=== PATIENT | male | born 1945 | race Caucasian/White ===

== ENCOUNTER 2019-05-25 10:25 | Emergency (ER) | payer MEDICARE, OTHER ==
[~2019-05-25] VITALS: Ht 167.6 cm; Wt 64.4 kg
[~2019-05-25 10:25] MED LIST: AMLODIPINE BESYL5 MG PO; ASPIRIN EC325 MG PO; ATORVASTATIN CA40 MG PO; BACLOFEN20 MG PO; CHLORTHALIDONE25 MG PO; CITALOPRAM HBR40 MG PO; COUMADIN5 MG PO; COZAAR100 MG PO; ENOXAPARIN100 MG/1 M SUB-Q; FINASTERIDE5 MG PO; FLOMAX0.4 MG PO; FOLIC ACID0.4 MG PO; GABAPENTIN300 MG PO; IBUPROFEN600 MG PO; LOSARTAN POTASS50 MG PO; LOTEMAX5 ML OPTH; MIRAPEX0.25 MG PO; MYCOPHENOLATE500 MG PO; OMEPRAZOLE20 MG PO; OXYCODON-ACETA1 EAC2 PO; OXYCODONE HCL5 MG PO; POTASSIUM CHLO10 ME1 PO; RESTASIS1 DROP OD; SIMVASTATIN40 MG PO; TRAZODONE HCL50 MG PO; TYLENOL325 MG PO; VITAMIN B122500 MCG PO; VITAMIN D35000 UNIT PO; WARFARIN SODIUM5 MG PO
== END 2019-05-25 13:25 | disposition home or self-care (01) ==
LOC: ED 10:25
DX: K40.90 Unilateral inguinal hernia, without obstruction or gangrene, not specified as recurrent (principal); Z86.73 Personal history of transient ischemic attack (TIA), and cerebral infarction without residual deficits; Z87.891 Personal history of nicotine dependence; Z79.01 Long term (current) use of anticoagulants; Z79.899 Other long term (current) drug therapy
CPT/HCPCS: 74177; 80053; 81001; 85025; 99284-25; Q9967

== ENCOUNTER 2020-03-01 13:00 | Emergency (ER) | payer MEDICARE, OTHER ==
[~2020-03-01] VITALS: Ht 167.6 cm; Wt 65.8 kg
== END 2020-03-01 15:49 | disposition home or self-care (01) ==
LOC: ED 13:00
DX: K40.90 Unilateral inguinal hernia, without obstruction or gangrene, not specified as recurrent (principal); I10 Essential (primary) hypertension; Z86.73 Personal history of transient ischemic attack (TIA), and cerebral infarction without residual deficits; Z79.899 Other long term (current) drug therapy; Z79.01 Long term (current) use of anticoagulants
CPT/HCPCS: 80053; 83690; 85025; 99283

== ENCOUNTER 2020-06-26 07:30 | Observation (INO) | payer MEDICARE, OTHER ==
[~2020-06-26] VITALS: Ht 167.6 cm; Wt 65.8 kg
--- OUTSIDE RECORDS SUMMARY | ~2020-06-26 | XMS | Encounter Summary ---
Demographics + + + | Address | [address] | | | [place] [address] | + + + | Home Phone | | + + + | Preferred Language | Unknown | + + + | Marital Status | | + + + | Samaritan Affiliation | Unknown | + + + | Race | White | + + + | Ethnic Group | Not or | + + + Author + + + | Author | [facility] | | | and [place] | + + + | Organization | [facility] | | | and [place] | + + + | Address | Unknown | + + + | Phone | Unavailable | + + + Support + + + + + | Name | Relationship | Address | Phone | + + + + + | Delilah Aleman | ECON | [address] | | | | | [place] | | | | | [address] | | + + + + + Care Team Providers + +------+ + | Care Automotive Electrical Fitter Name | Role | Phone | + +------+ + | Almas Licea MD | PCP | | + +------+ + Encounter Details +--------+ + + + + | Date | Type | Department | Care Team | Description | +--------+ + + + + | 10/08/ | Orders Only | [facility] | Matt Sandoval | Lumbar radiculopathy | | 2017 | | NEUROSURGERY [address] | [address] | (Primary Dx); S/P | | | | [address] [place], [place] | lumbar fusion | | | | [place], [place] | [address] | | | | | [address] | | | | | | [phone] | | | +--------+ + + + + Social History + + + +--------+ + | Tobacco Use | Types | Packs/Day | Years | Date | | | | | Used | | + + + +--------+ + | Former Smoker | Cigarettes | 1 | 30 | 09/15/1971 - | | | | | | 09/15/2001 | + + + +--------+ + + +---+---+---+ | Smokeless Tobacco: | | | | | Former User | | | | + +---+---+---+ + + +---------+ + | Alcohol Use | Drinks/Week | oz/Week | Comments | + + +---------+ + | No | 14 Glasses of wine | 14.0 | | | | 0 Standard drinks | | | | | or equivalent | | | + + +---------+ + + + + | Sex Assigned at | Date Recorded | | | | + + + | Not on file | | + + + documented as of this encounter Functional Status + + + + | Functional Status | Response | Date of Assessment | + + + + | Are you deaf or do you have serious | No | 07/06/2016 | | difficulty hearing? | | | + + + + | Are you blind or do you have serious | No | 07/06/2016 | | difficulty seeing, even when wearing | | | | glasses? | | | + + + + | Do you have serious difficulty walking or | No | 07/06/2016 | | climbing stairs? (5 years old or older) | | | + + + + | Do you have difficulty dressing or bathing? | No | 07/06/2016 | | (5 years old or older) | | | + + + + | Because of a physical, mental, or emotional | No | 07/06/2016 | | condition, do you have difficulty doing | | | | errands alone such as visiting a doctor's | | | | office or shopping? [15 years old or | | | | older)] | | | + + + + + + + + | Cognitive Status | Response | Date of Assessment | + + + + | Because of a physical, mental, or emotional | No | 07/06/2016 | | condition, do you have serious difficulty | | | | concentrating, remembering, or making | | | | decisions? (5 years old or older) | | | + + + + documented as of this encounter Plan of Treatment + +---------+--------+ + + | Name | Type | Priori | Associated Diagnoses | Order Schedule | | | | ty | | | + +---------+--------+ + + | XR Lumbar Spine 2 or | Imaging | Routin | Lumbar | Expected: 11/17/2016 | | 3 Vw | | e | radiculopathy S/P | (Approximate), | | | | | lumbar fusion | Expires: 10/07/2017 | + +---------+--------+ + + documented as of this encounter Visit Diagnoses + + | Diagnosis | + + | Lumbar radiculopathy - Primary Thoracic or lumbosacral neuritis or radiculitis, | | unspecified | + + | S/P lumbar fusion Arthrodesis status | + + documented in this encounter"
--- OUTSIDE RECORDS SUMMARY | ~2020-06-26 | XMS | Encounter Summary ---
Demographics + + + | Address | [address] | | | [place] [address] | + + + | Home Phone | | + + + | Preferred Language | Unknown | + + + | Marital Status | | + + + | Sikhism Affiliation | Unknown | + + + | Race | White | + + + | Ethnic Group | Not or | + + + Author + + + | Author | [facility] | | | and [place] | + + + | Organization | [facility] | | | and [place] | + + + | Address | Unknown | + + + | Phone | Unavailable | + + + Support + + + + + | Name | Relationship | Address | Phone | + + + + + | Delilah Woods Ash | ECON | [address] | | | | | [place] | | | | | [address] | | + + + + + Care Team Providers + +------+ + | Care Meat Counter Clerk Name | Role | Phone | + +------+ + | Almas Licea MD | PCP | | + +------+ + Reason for Visit + + + | Reason | Comments | + + + | Follow-up | Discuss surgery | + + + Encounter Details +--------+---------+ + + + | Date | Type | Department | Care Team | Description | +--------+---------+ + + + | 04/29/ | Office | [facility] | William Garcia MD | Postural kyphosis of | | 2016 | Visit | NEUROSURGERY [address] | [address] | lumbar region | | | | [address] | [place] [address] | (Primary Dx); | | | | [place] | [phone] | Spondylolisthesis, | | | | [address] | | lumbar region; DDD | | | | [phone] | | (degenerative disc | | | | | | disease), lumbar; | | | | | | Facet arthritis of | | | | | | lumbar region (HCC); | | | | | | Lumbar facet | | | | | | arthropathy | +--------+---------+ + + + Social History + + [...] Smokeless Tobacco: | | | | | Never Used | | | | + +---+---+---+ + + +---------+ + | Alcohol Use | Drinks/Week | oz/Week | Comments | + + +---------+ + | Yes | 0 Standard drinks | 0.0 | FREQUENTLY (MORE | | | or equivalent | | THAN TWICE PER WEEK) | + + +---------+ + + + + | Sex Assigned at | Date Recorded | | | | + + + | Not on file | | + + + documented as of this encounter Last Filed Vital Signs + + + + + | Vital Sign | Reading | Time Taken | Comments | + + + + + | Blood Pressure | 113/79 | 04/29/2016 12:43 PM | | | | | PDT | | + + + + + | Pulse | 85 | 04/29/2016 12:43 PM | | | | | PDT | | + + + + + | Temperature | - | - | | + + + + + | Respiratory Rate | 20 | 04/29/2016 12:43 PM | | | | | PDT | | + + + + + | Oxygen Saturation | - | - | | + + + + + | Inhaled Oxygen | - | - | | | Concentration | | | | + + + + + | Weight | 64.5 kg (142 lb 3.2 | 04/29/2016 12:43 PM | | | | oz) | PDT | | + + + + + | Height | 167.6 cm (5' 6") | 04/29/2016 12:43 PM | | | | | PDT | | + + + + + | Body Mass Index | 22.95 | 04/29/2016 12:43 PM | | | | | PDT | | + + + + + documented in this encounter Patient Instructions Patient Instructions William Garcia MD - 04/29/2016 1:40 PM PDTWe discussed a lumbar fusion as an option for your treatment. I favored an anterior and posterior fusion with posterior instrumentation should we decide to proceed with surgery after the failure of conservative treatment. You can research this procedure more at: [email or web address] Choose your Diagnosis first and then choose XLIF and TLIF under the [facility] link. documented in this encounter Progress Notes William Garcia MD - 04/29/2016 1:41 PM PDTFormatting of this note might be different from t he original. William Garcia MD [address] [place] [address], [address] [place] [id number] FAX: NEUROSURGERY FOLLOW-UP CHIEF COMPLAINT: Chief Complaint Patient presents with Follow-up Discuss surgery HISTORY OF PRESENT ILLNESS: The patient is a 70 y.o. male with the complaint of back and r ight hip pain. The patient today returns accompanied by his . 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 He underwent physical therapy and actually did fairly well. He has significant improveme nts of his dysfunction although he did remain having some weakness. Unfortunately over the last couple years he is noticing increasing problems again with right leg weakness. [facility] without much improvement. He complains of low back pain which rad iates mostly to the right hip. He notices also worsening balance issues as well as leg weak ness with walking. He has loss of fine motor skills of his hands as well as changes in his handwriting. Despite significant amount of therapy his symptoms continue to worsen. He has difficult time with weakness of his leg. He drags his right leg at this time. He does use an AFO and a brace for walking. He returns today to discuss his surgical options. The patient does not report any change in bowel or bladder function recently. His symptoms improve with changing position and walking. His symptoms worsen with standing and sitting. He has tried PT and Injections. 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 citalopram (CELEXA) 40 mg tablet Take 40 mg by mouth Daily. finasteride (PROSCAR) 5 mg tablet Take 5 mg by mouth Daily. losartan (COZAAR) 50 mg tablet as directed mycophenolate (CELLCEPT) 500 MG tablet as directed (Patient taking differently: Take 50 0 mg by mouth Daily.) omeprazole ([facility] OMEPRAZOLE) 20 mg TBEC as directed warfarin (COUMADIN) 5 mg tablet Take 22.5 mg by mouth every 7 days. No current facility-administered medications for this visit. ALLERGIES: Allergies Allergen Reactions Acetaminophen Itching SOCIAL HISTORY: The patient reports that he quit smoking about 14 years ago. His smoking use included Ciga rettes. He started smoking about 44 years ago. He has a 30 pack-year smoking history. He has never used smokeless tobacco. He reports that he drinks alcohol. He reports that he does no t use illicit drugs. FAMILY HISTORY: Family History Problem Relation Age of Onset Stroke Father Cancer Father Alcohol abuse Father Hypertension Mother Stroke Mother REVIEW OF SYSTEMS GENERALLY: + fever, no night sweats, no anemia, + fatigue, no recent profound weight mauro ges. EYES: + eye problems, + use of corrective lenses, no eye injury, no double vision, no blin dness. EARS, NOSE, AND THROAT: No changes in taste or smell, + hearing difficulty, + ringing in t he ears, no ear drainage, no dizziness, no voice changes, + difficulty swallowing, + signifi cant snoring, + sleep apnea, no sinus problems, + major dental work. NEUROLOGICALLY: Please see the review of systems discussed above in the history of present illness. In addition, the patient has numbness/pain of legs, weakness, muscle aching, coor dination difficulty, change in walk, pain in back, stroke. PSYCHIATRIC: + depression, + sleep disorders, no anxiety, no bipolar disorder, no psychoti c episodes. CARDIOVASCULAR: No heart attacks, no heart murmur, no heart fluttering, no chest pain, no ankle swelling. LUNG DISEASE: + shortness of breath, no cough, no tuberculosis, no bloody cough, no asthm a, no emphysema/COPD. GASTROINTESTINAL: No bowel disease, no nausea or vomiting, + rectal bleeding/hemorrhoids, + constipation, + stool incontinence, no liver disease, no gallbladder disease, no abdominal pain, no ulcers. KIDNEY DISEASE: + urinary frequency, + painful or difficult urination, + incontinence, + i mpotence. ENDOCRINE: No diabetes, no thyroid disease, no osteopenia or osteoporosis, no breast drain age. SKIN: No breast lumps, no skin changes, no rashes, no itches. HEMATOLOGIC/LYMPHATIC: No enlarged lymph nodes, no easy or unusual bleeding, no personal h istory of cancer. RHEUMATOLOGIC: No joint arthritis, no rheumatoid arthritis. PHYSICAL EXAMINATION: Blood pressure 113/79, pulse 85, resp. rate 20, height 1.676 m (5' 6"), weight 64.501 kg (1 42 lb 3.2 oz). Body mass index is 22.96 kg/(m^2). GENERAL: Kevin Aleman . is in no acute distress with unlabored respirations. The pa tient does appear uncomfortable throughout the exam today. HEENT: HEAD/FACE: EYES: EARS: NASOPHARNYX: OROPHARNYX: Normocephalic and atraumatic. There are no areas of recent trauma. Normal sclerae without icterus. NECK (ANTERIOR): Supple. CHEST: Clear to ausculation without crackles or wheeze. HEART: Regular rate and rhythm without murmurs. ABDOMEN: Soft, non-tender, non-distended, and without palpable masses. The patient is notob abilio. SPINE: There is no tenderness in the midline of the cervical or thoracic spine. There is n o major palpable deformity of the spine. The lumbar spine shows there is tenderness in the midline of the L3, L4, L5 levels. To pal pation, there is no signficant bilaterally myofascial tenderness. EXTREMITIES: No edema. Distal pulses are palpable. NEUROLOGICAL EXAM: MENTAL STATUS: The patient is awake, alert, and oriented. He follows simple and complex commands. His speech is fluent, he comprehends speech well, and he repeats well. He has no apparent deficits with short or bottle tester memory. MOTOR EXAM: (5 IS NORMAL) * Indicates pain limited MUSCLE/ MOVEMENT: RIGHT LEFT Deltoids 5 5 Biceps 5 5 Triceps 5 5 Wrist Flexion 5 5 Wrist Extension 5 5 Median Intrinsics 5 5 Ulnar Intrinsics 5 5 Facer Operator Strength 5 5 Hip Flexion 4 5 Hip Extension 5 5 Knee Flexion 5 5 Knee Extension 5 5 Dorsiflexion 5 5 Extensor Hallicus Longus 4- 5 Plantarflexion 5 5 SENSORY EXAM: Sensory exam shows no diminished sensation to light touch or pain throughout the upper and lower extremities. REFLEXES: (2 OR 2+ IS NORMAL) REFLEX: RIGHT LEFT BICEPS 2+ 2+ BRACHIORADIALIS 2+ 2+ PATELLAR 3+ 3+ ACHILLES 2+ 2+ GAIT: Gait is limited due to the right leg weakness. RADIOGRAPHIC REVIEW: The patient's imaging was reviewed in detail with the patient today during the visit. The MRI from his lumbar spine shows old compression fracture of T12. This appears to be age ind eterminate and not acute. He has significant degenerative changes of L2-5. He has spondylo listhesis with some instability noted as well at L4-5. ASSESSMENT: NEUROSURGICAL DIAGNOSES: Encounter Diagnoses Name Primary? Postural kyphosis of lumbar region Yes Spondylolisthesis, lumbar region DDD (degenerative disc disease), lumbar Facet arthritis of lumbar region Lumbar facet arthropathy GENERAL DIAGNOSES: Past Medical History Diagnosis Date GERD (gastroesophageal reflux disease) Depression High cholesterol Stroke (HCC) Hypertension Back pain of thoracolumbar region 08/29/2012 Facet arthritis of lumbar region 02/01/2015 Trochanteric bursitis of right hip 02/01/2015 Poor circulation PLAN: Kevin Aleman . presented today, and it was a pleasure seeing this patient and assess ing his problems. I reviewed the MRIs with him. He has severe back pain likely related to his loss of lordos is and disc collapse. His right nerve compression at L2-3 and L3-4 and a L4-5 spondylolisth esis. His weakness is likely related to his old CVA. We discussed the risks, alternatives, and benefits to surgical intervention with Mr. Aleman in clinic. These risks included but were not limited to , stroke, heart attack, numbn ess, weakness, paralysis, failure of fusion, failure of hardware, subsidence, adjacent segme nt degeneration, cerebrospinal fluid leak, bleeding, infection, injury to surrounding tissue s and organs, injury from positioning, injury to the nerves, difficulty with breathing, diff iculty with swallowing, difficulty with voice change, and need for additional surgery. Surgical options were discussed and the technique to be employed was described in detail to him. All his questions were answered. We discussed that the goal of the surgery is to prevent progression of his disease, but it is not considered a cure. We also discussed that although some patients may obtain 100% sym ptom relief, it is realistic to anticipate that some symptoms will continue postoperatively despite a successful surgery. We also discussed that there is no guarantee that surgery will provide improvement in his c ondition, and indeed may even worsen the symptoms. We also discussed that in the course of the procedure the operative plan may be altered to include more, less, or different levels d epending upon findings in order to provide him with the best possible outcome. I am prescribing a brace before surgery to improve his stability now to support his weak mu scles and to reduce pain by restricting mobility. For multiple (more than 1 level) fusions, I am also prescribing a bone growth stimulator po stoperatively. This is to improve the probability and rate of fusion. He would like to weigh his options. I did discuss a L2-L5 fusion as an option. ELECTRONICALLY SIGNED BY: William Garcia MD, 04/29/2016 13:[address] [place] Plan of Treatment Not on filedocumented as of this encounter Visit Diagnoses + + | Diagnosis | + + | Postural kyphosis of lumbar region - Primary | + + | Spondylolisthesis, lumbar region | + + | DDD (degenerative disc disease), lumbar Degeneration of lumbar or lumbosacral | | intervertebral disc | + + | Facet arthritis of lumbar region Lumbosacral spondylosis without myelopathy | + + | Lumbar facet arthropathy Lumbosacral spondylosis without myelopathy | + + documented in this encounter
--- OUTSIDE RECORDS SUMMARY | ~2020-06-26 | XMS | Encounter Summary ---
Demographics + + + | Address | [address] | | | [place] [address] | + + + | Home Phone | | + + + | Preferred Language | Unknown | + + + | Marital Status | | + + + | Sikh Affiliation | Unknown | + + + | Race | White | + + + | Ethnic Group | Not or | + + + Author + + + | Author | [facility] | | | and [place] | + + + | Organization | [facility] | | | and [place] | + + + | Address | Unknown | + + + | Phone | Unavailable | + + + Support + + + + + | Name | Relationship | Address | Phone | + + + + + | Delilah Aleman | ECON | [address] | | | | [place] | | | | | [address] | | + + + + + Care Team Providers + +------+ + | Care Information Systems Administrator Name | Role | Phone | + +------+ + PCP | Unavailable | + +------+ + Encounter Details +--------+ + + + + | Date | Type | Department | Care Team | Description | +--------+ + + + + | 02/05/ | Hospital | [facility] | [facility] | Unspecified | | 2010 | Encounter | [address] | [address] | infectious and | | | | [address] | [place], | parasitic diseases; | | | | [place], [place] | [place] [address] | Unspecified disease | | | | [address] | [phone] | of nail | | | | [phone] | | | +--------+ + + + + Social History + +-------+ +--------+------+ | Tobacco Use | Types | Packs/Day | Years | Date | | | | | Used | | + +-------+ +--------+------+ | Never Assessed | | | | | + +-------+ +--------+------+ + + + | Sex Assigned at | Date Recorded | | | | + + + | Not on file | | + + + documented as of this encounter Plan of Treatment Not on filedocumented as of this encounter Visit Diagnoses + + | Diagnosis | + + | Unspecified infectious and parasitic diseases | + + | Unspecified disease of nail | + + documented in this encounter"
--- OUTSIDE RECORDS SUMMARY | ~2020-06-26 | XMS | Encounter Summary ---
Demographics + + + | Address | [address] | | | [place] [address] | + + + | Home Phone | | + + + | Preferred Language | Unknown | + + + | Marital Status | | + + + | Bahai Affiliation | Unknown | + + + | Race | White | + + + | Ethnic Group | Not or | + + + Author + + + | Author | Located Within [facility] | | | and [place] | + + + | Organization | Located Within [facility] | | | and [place] | + + + | Address | Unknown | + + + | Phone | Unavailable | + + + Support + + + + + | Name | Relationship | Address | Phone | + + + + + | Delilahparmjit Aleman | ECON | [address] | | | | | [place] | | | | | [address] | | + + + + + Care Team Providers + +------+ + | Care Pipe Recovery Specialist Name | Role | Phone | + +------+ + | Almas Licea MD | PCP | | + +------+ + Reason for Visit + + + | Reason | Comments | + + + | Follow-up | Follow up after injection | + + + Encounter Details +--------+---------+ + + + | Date | Type | Department | Care Team | Description | +--------+---------+ + + + | 07/10/ | Office | [facility] | Almas Rivera | Lumbar spine | | 2014 | Visit | REHABILITATION | MD Earnest [address] | instability (Primary | | | | MEDICINE [address] [place] | Dx); Facet | | | | [address] [place] | [place] [address] | syndrome, lumbar | | | | [place] [address] | [phone] | | | | | [phone] | | | +--------+---------+ + + + Social History + +-------+ +--------+ + | Tobacco Use | Types | Packs/Day | Years | Date | | | | | Used | | + +-------+ +--------+ + | Former Smoker | | | | Quit: 09/15/2001 | + +-------+ +--------+ + + +---+---+---+ | Smokeless Tobacco: | | | | | Never Used | | | | + +---+---+---+ + + +---------+ + | Alcohol Use | Drinks/Week | oz/Week | Comments | + + +---------+ + | Yes | | | | + + +---------+ + [...] + + + | Blood Pressure | 125/77 | 07/10/2015 1:38 PM | | | | | PDT | | + + + + + | Pulse | 92 | 07/10/2015 1:38 PM | | | | | PDT | | + + + + + | Temperature | - | - | | + + + + + | Respiratory Rate | 18 | 07/10/2015 1:38 PM | | | | | PDT | | + + + + + | Oxygen Saturation | - | - | | + + + + + | Inhaled Oxygen | - | - | | | Concentration | | | | + + + + + | Weight | 64.9 kg (143 lb) | 07/10/2015 1:38 PM | | | | | PDT | | + + + + + | Height | 167.6 cm (5' 6") | 07/10/2015 1:38 PM | | | | | PDT | | + + + + + | Body Mass Index | 23.08 | 07/10/2015 1:38 PM | | | | | PDT | | + + + + + documented in this encounter Patient Instructions Patient Instructions Almas Rivera MD - 07/10/2015 2:12 PM PDT1. I've request ed the neurosurgeons to review your mri and recent back CT for consideration of a fusion at the L2-3 and possibly L3-4 level. 2. If the neurosurgeons don't do this procedure, they will give me a name of someone who d oes and I'll refer you to them. 3. I'll see you back as needed as you have failed our conservative therapy and treatments. documented in this encounter Progress Notes Almas Rivera MD - 07/10/2015 5:25 PM PDTI spent over 25 minutes, face to face with the patient, over half in education and counseling regarding his temporary help of 2 d ifferent L3-4, L4-5 facet injections. The last was June 07, 2015. He had as much as 75% reduction of pain initially but by June 28, down to 0%. The pain became so severe he actually had to come to the emergency room at [facility] June 11. The CT scan from that date was rev iewed and showed significant pathology at L2-3. Thus I asked the neurosurgeon's to review h is these studies. He has failed conservative treatment and has intractable pain from his fa cet syndrome with what appears to be some instability at L2-3. Back pain is right greater than left and radiates to the sides in the mid to low lumbar are a that is moderate to severe. No radiation into the lower extremities, no numbness or tingl ing or weakness. He has some irritable bowel syndrome issues and has to strain to void but is already on Kuldip max but that causes orthostasis. He was unable to see Dr. Phillips the neurologist for his asymmetric reflexes because of his sev ere back pain and could not drive. Physical exam He has slender body habitus and in moderate back pain. Back flexion 60, extension 5 with increased pain, bending to the right causes increased right sided low lumbar pain, bending 10 the left causes milder left lumbar pain Lower extremity strength 4/5 for hip and knee, 3 for ankle, left leg 4+ over 5. He has inc reased tone in the right leg from his prior small CVA. 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 He has failed conserva tive treatment including to facet injections that both helped but only temporarily. He has also failed PT, which he had recently. Previous CVA with right-sided weakness. Very functional with mainly only right foot drop a s a residual and increased tone. 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 Licea Plan and recommendation I asked our neurosurgeons to review the recent MRI and lumbar CT scan regarding what they w ould recommend and if they do fusions for facet syndrome or if he needs surgery for his inst ability at L2-3. If they don't do fusions for facet syndrome, I requested that they suggest a referral for this unfortunate patient with intractable pain. Follow-up as needed as he has failed conservative treatment. documented in this encounter Plan of Treatment Not on filedocumented as of this encounter Visit Diagnoses + + | Diagnosis | + + | Lumbar spine instability - Primary | + + | Facet syndrome, lumbar Other symptoms referable to back | + + documented in this encounter
--- OUTSIDE RECORDS SUMMARY | ~2020-06-26 | XMS | Encounter Summary ---
Demographics + + + | Address | [address] | | | [place] [address] | + + + | Home Phone | | + + + | Preferred Language | Unknown | + + + | Marital Status | | + + + | Protestant Affiliation | Unknown | + + + | Race | White | + + + | Ethnic Group | Not or | + + + Author + + + | Author | [facility] | | | and [place] | + + + | Organization | [facility] | | | [...] [place] | | | | | [address] | | + + + + + Care Team Providers + +------+ + | Care Creative Producer Name | Role | Phone | + +------+ + | Harris Sauceda MD | PCP | | + +------+ + Encounter Details +--------+ + + + + | Date | Type | Department | Care Team | Description | +--------+ + + + + | 02/13/ | Abstract | [facility] [place] | William Ford, | | | 2019 | | NEUROSURGERY [address] | PA-C [address] | | | | [address] | [address] [place] | | | | | [place], [place] | [place] [address] | | | | | [address] | [phone] | | | | | [phone] | | | +--------+ + + + [...] | + + + +--------+ + + +---+---+ + | Smokeless Tobacco: | | | Quit: | | Former User | | | 11/12/18 | | | | | 87 | + +---+---+ + + + +---------+ + | Alcohol Use [...] filedocumented as of this encounter Visit Diagnoses Not on filedocumented in this encounter"
--- OUTSIDE RECORDS SUMMARY | ~2020-06-26 | XMS | Encounter Summary ---
Demographics + + + | Address | [address] | | | [place] [address] | + + + | Home Phone | | + + + | Preferred Language | Unknown | + + + | Marital Status | | + + + | Spiritism Affiliation | Unknown | + + + | Race | White | + + + | Ethnic Group | Not or | + + + Author + + + | Author | [facility] | | | and [place] | + + + | Organization | [facility] | | | and [place] | + + + | Address | Unknown | + + + | Phone | Unavailable | + + + Support + + + + + | Name | Relationship | Address | Phone | + + + + + | Delilah Hernándeznicholas | ECON | [address] | | | | | [place] | | | | | [address] | | + + + + + Care Team Providers + +------+ + | Care Cadworx Piping Designer Name | Role | Phone | + +------+ + | Almas Licea MD | PCP | | + +------+ + Encounter Details +--------+ + + + + | Date | Type | Department | Care Team | Description | +--------+ + + + + | 04/06/ | Orders Only | [facility] [place] | Judy Downey, | Spondylosis of | | 2014 | | PHYSIATRY [address] | LOST AND FOUND CLERK | lumbar region | | | | [address] | | without myelopathy | | | | [place] | | or radiculopathy | | | | [address] | | (Primary Dx) | | | | [phone] | | | +--------+ + + + [...] Not on filedocumented as of this encounter Results [place] Facet Injection Lumbar Sacral (06/07/2015 2:34 PM PDT) + + | Specimen | + + | | + + + + + | Narrative | Performed At | + + + | 06/07/2015 Bilateral Lumbar Facet Steroid Injections | [facility] | | Diagnosis: Lumbar Spondylosis ICD-9 Code 721.3 Kevin Gutierrez | [facility] | | [facility] presents to the fluoroscopy suite for [facility] | | fluoroscopically-guided right L3-L4 and right L4-L5 facet injections | - IMAGING | | as part of conservative management for chronic pain with lumbar | | | spondylosis. Based on the patient's history, physical examination and | | | review of the available imaging the patient has been diagnosed with | | | pain coming primarily from the lumbar facet joints. The patient's | | | pain has been moderate to severe, rated as a 8-10 usually on a 0-10 | | | scale. The pain is impacting activities of daily living including | | | sitting for more than 30 minutes or ambulating for more than 10 | | | minutes. The patient has been dealing with this pain for more than a | | | year and has failed conservative treatment with NSAIDs, PT and a | | | home exercise program therefore therapeutic facet injections were | | | ordered today by Dr. Earnest Rivera targeting the right L3-L4 and | | | L4-L5 facet joints. He had the same procedure 5 months ago and had | | | very good relief, 50% or more until the pain recently worsened | | | approximately 1 month ago. After informed consent was obtained, | | | the patient laid in the prone position on the fluoroscopy table. The | | | areas were identified under fluoroscopic guidance. The areas were | | | prepped and draped in sterile fashion. A 25-gauge, 1.5-inch needle | | | was inserted into each region and approximately 3 mL of buffered 1% | | | lidocaine was infused. Then, a 22-gauge spinal needle was inserted | | | into the superior portion of each facet under fluoroscopic guidance. | | | Confirmation into the joint spaces was obtained with infusion of | | | approximately 1 mL of Omnipaque contrast which showed outline of the | | | facet joints. Then, a combination of 1 mL of 1% lidocaine and 1 mL | | | of 40 mg/mL Kenalog was infused divided between the 2 joints. The | | | patient tolerated the procedure well without complications. Pre- and | | | post-procedure blood pressures were stable. The patient was given | | | verbal as well as written follow-up instructions. Description of | | | procedure: After reviewing the relative risks and benefits the | | | patient consented to the procedure. The patient also received a | | | right trochanteric bursa injection. The most tender area was | | | palpated then marked over the lateral hip. The area was then | | | sterilized with chlorhexidine before inserting a 1-1/2 inch 27-gauge | | | needle down to the greater trochanter. Once bone was encountered the | | | needle was slightly retracted before injecting a total volume of 5 | | | mL including 1 mL of triamcinolone ( 40 milligrams per mL) and 4 mL | | | of 1% lidocaine. The needle was then removed and the area was | | | cleaned and bandaged. The patient was reexamined after the | | | procedures. He reported moderate improvement of his low back | | | symptoms after the procedure. Pain relief was somewhat difficult | | | to evaluate as he does have other painful issues at present | | | including broken ribs from a recent fall. The patient was instructed | | | to keep a detailed pain diary of the response to treatment and will | | | return the pain diary to our office 2 weeks after the procedure. | | | Prior to the start of the procedure, the following were performed | | | and/or verified, including correct patient identity, correct | | | site/side marked and visible, agreement on the procedure to be done, | | | correct patient positioning and an accurate procedure consent form. | | | Any safety precautions based on clinical history and/or medication | | | use have been addressed. I personally performed the procedure above. | | | Estimated blood loss: Minimal Complications: None Findings: | | | As expected Anesthesia: Local 1% Lidocaine | | + + + + + + + + | Performing | Address | City/State/Zipcode | Phone Number | | Organization | | | | + + + + + | [facility] | [address] 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
--- OUTSIDE RECORDS SUMMARY | ~2020-06-26 | XMS | Encounter Summary ---
Demographics + + + | Address | [address] | | | [place] [address] | + + + | Home Phone | | + + + | Preferred Language | Unknown | + + + | Marital Status | | + + + | Mormonism Affiliation | Unknown | + + + | Race | White | + + + | Ethnic Group | Not or | + + + Author + + + | Author | [facility] | | | and [place] | + + + | Organization | [facility] | | [...] [place] | | | | | [address] | | + + + + + Care Team Providers + +------+ + | Care Client Project Coordinator Name | Role | Phone | + +------+ + | Harris Sauceda MD | PCP | | + +------+ + Encounter Details +--------+ + + + + | Date | Type | Department | Care Team | Description | +--------+ + + + + | 05/19/ | Anesthesia | [facility] | Joe Lewis | | | 2019 | Event | [facility] OP | [address] | | | | | [address] | [address] | | | | | [place], [place] | [place] [address] | | | | | [address] | [phone] | | | | | [phone] | | | +--------+ + + + + Anesthesia Record + + + + + | Procedure Name | Responsible | Anesthesia Start | Anesthesia Stop Time | | | Anesthesiologist | Time | | + + + + + | Right foot | Joe Dorman | 05/19/19 0952 | 05/19/19 1154 | | gastrocnemius | DO Debbie | | | | release,and release | | | | | of flexor tendons, | | | | | and release hallucis | | | | | adductor, and | | | | | pinning of right | | | | | toes (Right Ankle) | | | | + + + + + +----+---+ + + | Da | T | Event | Comment | | te | i | | | | | m | | | | | e | | | +----+---+ + + | 09 | 0 | | | | /0 | 9 | | | | 4/ | 3 | | | | 20 | 8 | | | | 19 | | | | +----+---+ + + | | 0 | An Checkout | Pre-use anesthesia machine/equipment checkout. | | | 9 | | | | | 3 | | | | | 8 | | | +----+---+ + + | | 0 | Block Start | | | | 9 | | | | | 3 | | | | | 9 | | | +----+---+ + + | | 0 | AN Block | | | | 9 | End | | | | 4 | | | | | 6 | | | +----+---+ + + | | 0 | An Start | Reassessment prior to anesthesia induction/procedure. | | | 9 | | | | | 5 | | | | | 2 | | | +----+---+ + + | | 0 | An Start | | | | 9 | Data | | | | 5 | | | | | 2 | | | +----+---+ + + | | 0 | Preoxygenat | | | | 9 | ed | | | | 5 | | | | | 4 | | | +----+---+ + + | | 0 | An | | | | 9 | Induction | | | | 5 | | | | | 6 | | | +----+---+ + + | | 0 | An | | | | 9 | Intubation | | | | 5 | | | | | 8 | | | +----+---+ + + | | 0 | Anesthesia | | | | 9 | Ready | | | | 5 | | | | | 8 | | | +----+---+ + + | | 1 | Antibiotic | | | | 0 | Given | | | | 0 | | | | | 0 | | | +----+---+ + + | | 1 | Pre-Procedu | | | | 0 | ral Timeout | | | | 1 | Completed | | | | 2 | | | +----+---+ + + | | 1 | First | | | | 0 | Inc/Proc St | | | | 1 | | | | | 3 | | | +----+---+ + + | | 1 | [place] | | | | 0 | 43-degrees | | | | 1 | | | | | 3 | | | +----+---+ + + | | 1 | [place] off | | | | 1 | | | | | 3 | | | | | 8 | | | +----+---+ + + | | 1 | Oropharynx | | | | 1 | Suctioned | | | | 4 | | | | | 6 | | | +----+---+ + + | | 1 | Extubation/ | | | | 1 | Airway LDA | | | | 4 | Removal | | | | 7 | | | +----+---+ + + | | 1 | an stop | | | | 1 | data | | | | 4 | | | | | 9 | | | +----+---+ + + | | 1 | An Stop | Patient handed off to recovery nurse. | | | 5 | | | | | 4 | | | +----+---+ + + +------+ | Meds | +------+ + + + | Name | Total | + + + | fentaNYL | 100 mcg | + + + | lidocaine 2% | 60 mg | + + + | lidocaine 2% | 5 mL | + + + | propofol | 100 mg | + + + | ePHEDrine (AKOVAZ) injection 50 | 30 mg | | mg/mL | | + + + | ondansetron | 4 mg | + + + | dexamethasone (PF) injection 10 | 10 mg | | mg/mL | | + + + | ropivacaine 0.5% | 15 mL | + + + | ceFAZolin (ANCEF, KEFZOL) 100 | 2 g | | mg/mL IV syringe 2 g | | + + + | lactated ringers (LR) infusion | 1,200 mL | + + + + + | Name | + + | N2O Flow Rate (L/Min) | + + | O2 Flow Rate (L/Min) | + + | Insp O2 | + + | Exp SEV | + + | Air Flow Rate (L/Min) | + + + + | No blood administrations on file. | + + +--------+ + + + | Type | Details | Placement | Removal | +--------+ + + + | Wound | 05/19/19; 105; Incision; Right; | 05/19/19 105 by | | | | foot | Neel Camargo RN | | +--------+ + + + | Periph | 05/19/19; 930; Left; Posterior | 05/19/19930 by | 05/19/19 1408 by | | eral | (dorsal); Forearm; | Maryjane Linares RN | Jeanine Reilly RN | | IV | [id number] catheter system; | | | | | 20 gauge; distraction, | | | | | intradermal injection; no longer | | | | | indicated, removed per | | | | | policy/procedure; 05/19/19; 1408 | | | +--------+ + + + | Airway | Placement Date: 05/19/19; | 05/19/19 09 by | 05/19/19 114 by | | | Placement Time: 957 (created via | Joe Dorman | Joe Dorman | | | procedure documentation); | DO Debbie | DO Debbie | | | Attempts: 1; Airway Type: | | | | | laryngeal mask; Size: 4; Trauma: | | | | | none; Placement Check: exhaled | | | | | CO2 detection device, bilateral | | | | | chest rise, breath sounds equal | | | | | bilaterally; Removal Date: | | | | | 05/19/19; Removal Time: 114 | | | +--------+ + + + documented in this encounter Social History + + + +--------+ + [...] + + +---------+ + | No | 0 Standard drinks | 0.0 | | | | or equivalent | [...] + + documented as of this encounter OR Notes Anesthesia Postprocedure Evaluation - Joe Lewis DO - 05/19/2019 11:54 AM PDTFo rmatting of this note might be different from the original. ANESTHESIA POSTANESTHESIA EVALUATION Kevin Aleman Sr. 73 y.o. male 1945 [id number] Procedure(s) Right foot gastrocnemius release,and release of flexor tendons, and release hallucis adductor, and pinning of right toes (Right Ankle) Cooperates? Yes Mental Status Performs simple tasks. Respiratory Satisfactory - Airway patent (self maintained). Cardiovascular Satisfactory - Blood pressure and heart rate acceptable Temperature Satisfactory Pain Satisfactory N/V Control Satisfactory Hydration Satisfactory - No signs of dehydration Vitals Value Taken Time Temp 36.3 C (97.3 F) 05/19/2019 11:52 Pulse 89 05/19/2019 11:54 Resp 18 05/19/2019 11:54 BP 139/85 05/19/2019 11:54 Arterial Line BP Arterial Line BP 2 SpO2 97 % 05/19/2019 11:54 Vitals shown include unvalidated device data. Electronically signed by Joe Lewis DO 05/19/2019 11:54 [facility] signed by DO julita David 05/19/2019 11:54 AM PDTAnesthesia Procedure Notes - Joe Lewis DO - 05/19/2019 10:15 AM PDTAssociated Order(s): Nerve BlockPerineural Procedure Note 05/19/2019 9:45 Nerve block: popliteal sciatic Laterality: right Provider requested procedure: Leach Indication: postoperative analgesia Preprocedure check: patient identified, procedure and rescue equipment checked, preevaluati on including airway assessment complete, risks/benefits discussed, consent obtained, timeout performed, reassessment prior to procedure and monitors applied Patient position: supine Preparation: chlorhexidine/isopropyl alcohol Technique: ultrasound Radiology image stored in patient's chart: ultrasound Needle: echogenic Needle size: 21 g Needle length: 4 in Medication administered through: needle Negative findings: no blood aspirated and no paresthesia Total volume of local anesthetic solution administered: 20 mL Attempts: 1 Ease of procedure: easy Comments: Under ultrasound guidance, a 4 inch 21 gauge needle was inserted and placed in cl ose proximity to the sciatic nerve. Ultrasound was also used to visualize the spread of the anesthetic in close proximity to the nerve being blocked. The nerve appeared anatomically n ormal, and there were no apparent abnormal pathological findings. The patient tolerated the procedure well and a permanent ultrasound image was saved in the patient's record. Please see anesthesia record or flowsheet for vital sign documentation and see anesthesia r ecord or MAR for additional medication documentation. Performing provider: Joe Lewis DO nesthesia Proc edure Notes - Joe Lewis DO - 05/19/2019 10:15 AM PDTAssociated Order(s): Airway Anesthesia Airway Placement 05/19/2019 9:58 Preprocedure check: patient identified, suction, oxygen, airway equipment checked, airway a ssessed and patient reassessment prior to induction Attempts: 1 Airway type: laryngeal mask Size: 4 Tube secured with: adhesive tape Trauma: none Tube placement verification: bilateral chest rise, equal bilateral breath sounds and carbon dioxide detection Performing provider: Joe Lewis DO Please see intraoperative grid for any additional medication documentation. nesthesia Prep rocedure Evaluation - Joe Lewis DO - 05/18/2019 3:34 PM PDT ANESTHESIA PREANESTHESIA EVALUATION Kevin Gutierrez Ash . 73 y.o. male 1945 [id number] Procedure(s): Right foot gastrocnemius release,and release of flexor tendons, and release hallucis adductor (Right Ankle) Medical,anesthesia, drug, allergy histories reviewed, NPO status verified. ECG reviewed. Labs reviewed. . Review of Systems / Med History Anesthesia History (-) PONV, difficult intubation, malignant hyperthermia . Cardiovascular Last EKG: Results for orders placed or performed in visit on 05/10/19 -ECG 12 lead Result Value Ref Ra nge INTERPRETATION TEXT Normal sinus rhythm Left axis deviation Abnormal ECG When compared with ECG of 08-JUL-2016 11:03, QRS axis shifted left Confirmed by BINU EGAN, EMMA ([id number]) on 05/11/2019 6:09:36 AM . (+) hypertension, (-) congestive heart failure. (-) coronary artery disease. (+) PVD: . Pulmonary (-) shortness of breath, recent URI, Chronic Obstructive Pulmonary Disease. (+) sleep apnea . (+) Sleep apnea history/interventions: at risk. Stop Bang Score: 6. (+) asthma. Gastrointestinal/Hepatic (+) hypercholesterolemia. (-) acid reflux. Renal (-) chronic renal insufficiency. Endocrine (-) Diabetes. Hematology/Other (-) anemia. Neuromuscular (+) back pain, CVA (right sided weakness). Physical Exam Airway MP II, TM >3 FB, Mouth opening >2 FB. Neck: full ROM, extends >30 degrees. Jaw protrus ion normal. CV cardiovascular normal Rhythm regular. Rate normal. Pulm Clear to auscultation bilaterally. Neuro Grossly normal. Anesthesia Plan ASA 3 (CVA, untreated ARABELLA) Type: General. Induction: Intravenous. Potential problems: None anticipated. Monitors: Standard ASA monitors. Peripheral Nerve Block Consent statement:Anesthetic plan, alternatives, risks and benefits discussed with patient. discussed risks to teeth, drug reaction, heart problems, muscle aches, nausea, pain, periop erative CV events, respiratory events, sore throat, stroke, deliriumfailed or inadequate blo ck, bleeding, nerve damage, intravascular injection. Consenting person understands and agrees to proceed . PARQ. Sciatic single-shot peripheral nerve block requested by patient and surgeon for postoperat song pain control. Full PARQ held. All questions answered. . Electronically Signed by: DO Hugh Juang date/time: 05/18/2019 15:34 documented in t his encounter Miscellaneous Notes Anesthesia Post-op Handoff - Joe Lewis DO - 05/19/2019 11:53 AM PDT ANESTHESIA HANDOFF NOTE Kevin Aleman Sr. 73 y.o. male 1945 [id number] The following were completed during the transfer of care: 1. Identification of patient 2. Identification of responsible practitioner (primary service) 3. Discussion of pertinent medical history 4. Discussion of the surgical/procedure course (procedure, reason for surgery, procedure pe rformed) 5. Intraoperative anesthetic management and issues/concerns 6. Expectations/plans for the early post-procedure period 7. Opportunity for questions and acknowledgement of understanding of report from receiving team Right foot gastrocnemius release,and release of flexor tendons, and release hallucis adduc tor, and pinning of right toes (Right Ankle) Patient Location: Phase I Handoff Protocol Used: post-procedure handoff checklist completed Condition: sedated Airway/O2: other (see comments) Multimodal analgesia: multimodal analgesia used between 6 hours prior to anesthesia start t o PACU discharge Two or more ARABELLA mitigation strategies used: perioperative obstructive sleep apnea intervent ions applied Comments: Supplemental Oxygen used as necessary to maintain Oxygen Saturation at or above 9 2% The significant anesthesia concerns and VS in Epic were reviewed with the receiving team. Joe Lewis DO 05/19/2019 11:53 [facility]ron[facility] signed by Joe Lewis DO a t 05/19/2019 11:54 AM PDTdocumented in this encounter Plan of Treatment Not on filedocumented as of this encounter Procedures + +--------+ + + + | Procedure Name | Priori | Date/Time | Associated Diagnosis | Comments | | | ty | | | | + +--------+ + + + | ANE NERVE BLOCK | Routin | 05/19/2019 | | Results for this | | CATHETER NOTE | e | 10:15 AM | | procedure are in the | | | | PDT | | results section. | + +--------+ + + + | ANE AIRWAY NOTE | Routin | 05/19/2019 | | Results for this | | | e | 10:15 AM | | procedure are in the | | | | PDT | | results section. | + +--------+ + + + documented in this encounter Results Nerve Block (05/19/2019 10:15 AM PDT) + + + | Narrative | Performed At | + + + | Joe Lewis DO 05/19/2019 10:16 Perineural Procedure | | | Note 05/19/2019 9:45 Nerve block: popliteal sciatic Laterality: | | | right Provider requested procedure: Hany Indication: | | | postoperative analgesia Preprocedure check: patient identified, | | | procedure and rescue equipment checked, preevaluation including | | | airway assessment complete, risks/benefits discussed, consent | | | obtained, timeout performed, reassessment prior to procedure and | | | monitors applied Patient position: supine Preparation: | | | chlorhexidine/isopropyl alcohol Technique: ultrasound Radiology | | | image stored in patient's chart: ultrasound Needle: echogenic Needle | | | size: 21 g Needle length: 4 in Medication administered through: | | | needle Negative findings: no blood aspirated and no paresthesia | | | Total volume of local anesthetic solution administered: 20 mL | | | Attempts: 1 Ease of procedure: easy Comments: Under ultrasound | | | guidance, a 4 inch 21 gauge needle was inserted and placed in close | | | proximity to the sciatic nerve. Ultrasound was also used to | | | visualize the spread of the anesthetic in close proximity to the | | | nerve being blocked. The nerve appeared anatomically normal, and there | | | were no apparent abnormal pathological findings. The patient | | | tolerated the procedure well and a permanent ultrasound image was | | | saved in the patient's record. Please see | | | anesthesia record or flowsheet for vital sign documentation and see | | | anesthesia record or MAR for additional medication documentation. | | | Performing provider: Joe Lewis DO | | + + + + + | Procedure Note | + + | Joe Lewis DO - 05/19/2019 10:15 AM PDT Perineural Procedure Note05/19/2019 | | 9:45Nerve block: popliteal sciaticLaterality: rightProvider requested procedure: | | HendersonIndication: postoperative analgesiaPreprocedure check: patient identified, | | procedure and rescue equipment checked, preevaluation including airway assessment | | complete, risks/benefits discussed, consent obtained, timeout performed, reassessment | | prior to procedure and monitors appliedPatient position: supinePreparation: | | chlorhexidine/isopropyl alcoholTechnique: ultrasoundRadiology image stored in patient's | | chart: ultrasoundNeedle: echogenicNeedle size: 21 gNeedle length: 4 inMedication | | administered through: needleNegative findings: no blood aspirated and no | | paresthesiaTotal volume of local anesthetic solution administered: 20 mLAttempts: 1Ease | | of procedure: easyComments: Under ultrasound guidance, a 4 inch 21 gauge needle was | | inserted and placed in close proximity to the sciatic nerve. Ultrasound was also used | | to visualize the spread of the anesthetic in close proximity to the nerve being blocked. | | The nerve appeared anatomically normal, and there were no apparent abnormal | | pathological findings. The patient tolerated the procedure well and a permanent | | ultrasound image was saved in the patient's record. Please see anesthesia record or | | flowsheet for vital sign documentation and see anesthesia record or MAR for additional | | medication documentation.Performing provider: Joe Lewis DO | |Attempts: 1 | |Ease of procedure: easy | | | |Comments: Under ultrasound guidance, a 4 inch 21 gauge needle was inserted and placed in cl ose proximity to the sciatic nerve. Ultrasound was also used to visualize the spread of the anesthetic in close proximity to the | |nerve being blocked. The nerve appeared anatomically normal, and there were no apparent abn ormal pathological findings. The patient tolerated the procedure well and a permanent ultras ound image was saved in the patient's record. | | | | | | | | | | | |Please see anesthesia record or flowsheet for vital sign documentation and see anesthesia r ecord or MAR for additional medication documentation. | | | | | |Performing provider: Joe Lewis DO | + + Airway (05/19/2019 10:15 AM PDT) + + + | Narrative | Performed At | + + + | Jeo Lewis DO 05/19/2019 10:15 Anesthesia Airway | | | Placement 05/19/2019 9:58 Preprocedure check: patient identified, | | | suction, oxygen, airway equipment checked, airway assessed and | | | patient reassessment prior to induction Attempts: 1 Airway type: | | | laryngeal mask Size: 4 Tube secured with: adhesive tape Trauma: | | | none Tube placement verification: bilateral chest rise, equal | | | bilateral breath sounds and carbon dioxide detection Performing | | | provider: Joe Lewis DO Please see intraoperative | | | grid for any additional medication documentation. | | + + + + + | Procedure Note | + + | Joe Lewis DO - 05/19/2019 10:15 AM PDT Anesthesia Airway | | Placement05/19/2019 9:58Preprocedure check: patient identified, suction, oxygen, airway | | equipment checked, airway assessed and patient reassessment prior to inductionAttempts: | | 1Airway type: laryngeal maskSize: 4Tube secured with: adhesive tapeTrauma: noneTube | | placement verification: bilateral chest rise, equal bilateral breath sounds and carbon | | dioxide detectionPerforming provider: Brayan David see intraoperative | | grid for any additional medication documentation. | |Tube secured with: adhesive tape | |Trauma: none | |Tube placement verification: bilateral chest rise, equal bilateral breath sounds and carbon dioxide detection | |Performing provider: Joe Lewis DO | | | | | | | |Please see intraoperative grid for any additional medication documentation. | + + documented in this encounter Visit Diagnoses Not on filedocumented in this encounter Administered Medications + +--------+ +------+------+------+ | Medication Order | MAR | Action | Dose | Rate | Site | | | Action | Date | | | | + +--------+ +------+------+------+ | ceFAZolin (ANCEF, KEFZOL) 100 | Given | 05/19/20 | 2 g | | | | mg/mL IV syringe 2 g 2 g, | | 19 10:00 | | | | | Intravenous, Administer over 30 | | AM PDT | | | | | Minutes, Prior to Incision, | | | | | | | Starting 05/19/19 at 0328, For | | | | | | | 1 dose, Pre-op, Indications: | | | | | | | Surgical Prophylaxis | | | | | | + +--------+ +------+------+------+ +---+---+ | | | +---+---+ + +-------+ +-------+---+---+ | dexamethasone (PF) 10 mg/mL | Given | 05/19/20 | 10 mg | | | | injection Intravenous, PRN, | | 19 10:05 | | | | | Starting 05/19/19 at 1005, | | AM PDT | | | | | Anesthesia Intra-op | | | | | | + +-------+ +-------+---+---+ +---+---+ | | | +---+---+ + +-------+ +-------+---+---+ | ePHEDrine (AKOVAZ) 50 mg/mL | Given | 05/19/20 | 10 mg | | | | injection Intravenous, PRN, | | 19 10:56 | | | | | Starting 05/19/19 at 1010, | | AM PDT | | | | | Anesthesia Intra-op | | | | | | + +-------+ +-------+---+---+ +-------+ +-------+---+---+ | Given | 05/19/20 | 10 mg | | | | | 19 10:26 | | | | | | AM PDT | | | | +-------+ +-------+---+---+ | Given | 05/19/20 | 10 mg | | | | | 19 10:10 | | | | | | AM PDT | | | | +-------+ +-------+---+---+ +---+---+ | | | +---+---+ + +-------+ +--------+---+---+ | fentaNYL (PF) injection | Given | 05/19/20 | 25 mcg | | | | Intravenous, PRN, Starting Wed | | 19 10:44 | | | | | 05/19/19 at 0940, Anesthesia | | AM PDT | | | | | Intra-op | | | | | | + +-------+ +--------+---+---+ +-------+ +--------+---+---+ | Given | 05/19/20 | 25 mcg | | | | | 19 10:14 | | | | | | AM PDT | | | | +-------+ +--------+---+---+ | Given | 05/19/20 | 50 mcg | | | | | 19 9:40 | | | | | | AM PDT | | | | +-------+ +--------+---+---+ +---+---+ | | | +---+---+ + +-------+ +-------+---+---+ | lidocaine (PF) 2% injection | Given | 05/19/20 | 5 mLs | | | | PRN, Starting Fri05/19/19 at 0946, | | 19 9:46 | | | | | Anesthesia Intra-op | | AM PDT | | | | + +-------+ +-------+---+---+ +---+---+ | | | +---+---+ + +-------+ +-------+---+---+ | lidocaine (PF) 2% injection | Given | 05/19/20 | 60 mg | | | | Intravenous, PRN, Starting Fri | | 19 9:56 | | | | | 05/19/19 at 0956, Anesthesia | | AM PDT | | | | | Intra-op | | | | | | + +-------+ +-------+---+---+ +---+---+ | | | +---+---+ + +-------+ +------+---+---+ | ondansetron (ZOFRAN) injection | Given | 05/19/20 | 4 mg | | | | Intravenous, PRN, Starting Wed | | 19 10:05 | | | | | 05/19/19 at 1005, Anesthesia | | AM PDT | | | | | Intra-op | | | | | | + +-------+ +------+---+---+ +---+---+ | | | +---+---+ + +-------+ +--------+---+---+ | propofol (DIPRIVAN) injection | Given | 05/19/20 | 100 mg | | | | Intravenous, PRN, Starting Wed | | 19 9:56 | | | | | 05/19/19 at 0956, Anesthesia | | AM PDT | | | | | Intra-op | | | | | | + +-------+ +--------+---+---+ +---+---+ | | | +---+---+ + +-------+ +--------+---+---+ | ropivacaine (NAROPIN) 5 mg/mL | Given | 05/19/20 | 15 mLs | | | | (0.5%) injection PERINEURAL, | | 19 9:46 | | | | | PRN, Starting 05/19/19 at 0946, | | AM PDT | | | | | Anesthesia Intra-op | | | | | | + +-------+ +--------+---+---+ +---+---+ | | | +---+---+ documented in this encounter"
--- OUTSIDE RECORDS SUMMARY | ~2020-06-26 | XMS | Encounter Summary ---
Demographics + + + | Address | [address] | | | [place] [address] | + + + | Home Phone | | + + + | Preferred Language | Unknown | + + + | Marital Status | | + + + | Spiritism Affiliation | Unknown | + + + | Race | White | + + + | Ethnic Group | Not or | + + + Author + + + | Author | [facility] | + + + | Organization | [facility] | + + + | Address | Unknown | + + + | Phone | Unavailable | + + + Support + + + + + | Name | Relationship | Address | Phone | + + + + + | Delilah Aleman | ECON | [address] | | | | | [place] | | | | | [address] | | + + + + + Care Team Providers + +------+ + | Care Perfumer Name | Role | Phone | + +------+ + | Almas Licea MD | PCP | | + +------+ + Encounter Details +--------+------+ + + + | Date | Type | Department | Care Team | Description | +--------+------+ + + + | 03/06/ | Lab | Laboratory at [facility] | | Idiopathic | | 2008 | | [address] | | Retroperitoneal | | | | [facility] | | Fibrosis | | | | [place], [address] [place] [address] | | | | | | [place], [place] | | | | | | [address] | | | | | | [phone] | | | +--------+------+ + + + Social History + +-------+ +--------+------+ | Tobacco Use | Types | Packs/Day | Years | Date | | | | | Used | | + +-------+ +--------+------+ | Never Smoker | | | | | + +-------+ +--------+------+ + + +---------+ + | Alcohol Use [...] | + +--------+ + + + | DIFFERENTIAL | Routin | 03/06/2009 | | Results for this | | | e | 12:15 PM | | procedure are in the | | | | PDT | | results section. | + +--------+ + + + | CBC, WITH | Routin | 03/06/2009 | Idiopathic | Results for this | | DIFFERENTIAL | e | 12:15 PM | Retroperitoneal | procedure are in the | | | | PDT | Fibrosis | results section. | + +--------+ + + + | COMPLETE METABOLIC | Routin | 03/06/2009 | Idiopathic | Results for this | | SET | e | 12:15 PM | Retroperitoneal | procedure are in the | | (NA,K,CL,CO2,BUN,CRE | | PDT | Fibrosis | results section. | | AT,GLUC,CA,AST,ALT,B | | | | | | JUNIOR TOTAL,ALK | | | | | | PHOS,ALB,PROT TOTAL) | | | | | + +--------+ + + + | C-REACTIVE PROTEIN | Routin | 03/06/2009 | Idiopathic | Results for this | | | e | 12:15 PM | Retroperitoneal | procedure are in the | | | | PDT | Fibrosis | results section. | + +--------+ + + + | SEDIMENTATION RATE | Routin | 03/06/2009 | Idiopathic | Results for this | | | e | 12:15 PM | Retroperitoneal | procedure are in the | | | | PDT | Fibrosis | results section. | + +--------+ + + + documented in this encounter Results DIFFERENTIAL (03/06/2009 12:15 PM PDT) + +---------+ + + + | Component | Value | Ref Range | Performed | Pathologist | | | | | At | Signature | + +---------+ + + + | NEUTROPHIL | 87 (H) | 50 - 70 % | [facility] | | | % | | | DEPARTMENT | | | | | | OF | | | | | | PATHOLOGY | | + +---------+ + + + | LYMPHOCYTE | 8 (L) | 18 - 42 % | [facility] | | | % | | | DEPARTMENT | | | | | | OF | | | | | | PATHOLOGY | | + +---------+ + + + | MONOCYTE % | 4 | 2 - 8 % | [facility] | | | | | | DEPARTMENT | | | | | | OF | | | | | | PATHOLOGY | | + +---------+ + + + | EOS % | 0 (L) | 1 - 3 % | [facility] | | | | | | DEPARTMENT | | | | | | OF | | | | | | PATHOLOGY | | + +---------+ + + + | BASO % | 1 | <3 % | [facility] | | | | | | DEPARTMENT | | | | | | OF | | | | | | PATHOLOGY | | + +---------+ + + + | NEUTROPHIL | 6.0 | 1.8 - 7.7 K/cu | [facility] | | | # | | mm | DEPARTMENT | | | | | | OF | | | | | | PATHOLOGY | | + +---------+ + + + | LYMPHOCYTE | 0.5 (L) | 1.0 - 4.8 K/cu | [facility] | | | # | | mm | DEPARTMENT | | | | | | OF | | | | | | PATHOLOGY | | + +---------+ + + + | MONOCYTE # | 0.3 | <0.9 K/cu mm | [facility] | | | | | | DEPARTMENT | | | | | | OF | | | | | | PATHOLOGY | | + +---------+ + + + | EOS # | 0.0 | <0.6 K/cu mm | [facility] | | | | | | DEPARTMENT | | | | | | OF | | | | | | PATHOLOGY | | + +---------+ + + + | BASO # | 0.1 | <0.2 | [facility] | | | | | | DEPARTMENT | | | | | | OF | | | | | | PATHOLOGY | | + +---------+ + + + + + | Specimen | + + | | + + + + + + + | Performing | Address | City/State/Zipcode | Phone Number | | Organization | | | | + + + + + | [facility] DEPARTMENT OF | [address] | [place] [address] | | | PATHOLOGY | [address] | | | + + + + + | [facility] DEPARTMENT OF | [address] | [place] [address] | | | PATHOLOGY | [address] | | | + + + + + SEDIMENTATION RATE (03/06/2009 12:15 PM PDT) + +-------+ + + + | Component | Value | Ref Range | Performed | Pathologist | | | | | At | Signature | + +-------+ + + + | SEDIMENTATI | 3 | <21 mm/hr | [facility] | | | ON RATE | | | DEPARTMENT | | | | | | OF | | | | | | PATHOLOGY | | + +-------+ + + + + + | Specimen | + + | Blood - Blood | + + + + + + + | Performing | Address | City/State/Zipcode | Phone Number | | Organization | | | | + + + + + | [facility] DEPARTMENT OF | [address] | [place] [address] | | | PATHOLOGY | [address] | | | + + + + + | [facility] DEPARTMENT OF | [address] | [place] [address] | | | PATHOLOGY | [address] | | | + + + + + C-REACT PRTN (FOR INFLAMMATION) (03/06/2009 12:15 PM PDT) + +-------+ + + + | Component | Value | Ref Range | Performed | Pathologist | | | | | At | Signature | + +-------+ + + + | C-REACTIVE | < 0.5 | <0.6 mg/dl | | | | PROTEIN | | | | | + +-------+ + + + + + | Specimen | + + | Blood - Blood | + + + + + | Narrative | Performed At | + + + | Reference Range Change effective 10/11/08 | [facility] | | [facility] ([facility]) [facility] | DEPARTMENT OF | | [place] [address] [facility] | PATHOLOGY | | [place] [address] | | + + + + + + + + | Performing | Address | City/State/Zipcode | Phone Number | | Organization | | | | + + + + + | [facility] DEPARTMENT OF | [address] | [place] [address] | | | PATHOLOGY | [address] | | | + + + + + | [facility] DEPARTMENT OF | [address] | [place] [address] | | | PATHOLOGY | [address] | | | + + + + + COMPLETE METABOLIC SET (NA,K,CL,CO2,BUN,CREAT,GLUC,CA,AST,ALT,BILI TOTAL,ALK PHOS,ALB,PROT TOTAL) (03/06/2009 12:15 PM PDT) + +---------+ + + + | Component | Value | Ref Range | Performed | Pathologist | | | | | At | Signature | + +---------+ + + + | GLUCOSE, | 104 (H) | 60 - 99 mg/dL | [facility] | | | PLASMA | | | DEPARTMENT | | | (LAB) | | | OF | | | | | | PATHOLOGY | | + +---------+ + + + | BUN, PLASMA | 9 | 6 - 20 mg/dL | [facility] | | | (LAB) | | | DEPARTMENT | | | | | | OF | | | | | | PATHOLOGY | | + +---------+ + + + | CREATININE | 1.09 | 0.70 - 1.30 | [facility] | | | PLASMA | | mg/dL | DEPARTMENT | | | (LAB) | | | OF | | | | | | PATHOLOGY | | + +---------+ + + + | TOTAL | 6.7 | 6.1 - 7.9 g/dL | [facility] | | | PROTEIN, | | | DEPARTMENT | | | PLASMA | | | OF | | | (LAB) | | | PATHOLOGY | | + +---------+ + + + | ALBUMIN, | 3.6 | 3.5 - 4.7 g/dL | [facility] | | | PLASMA | | | DEPARTMENT | | | (LAB) | | | OF | | | | | | PATHOLOGY | | + +---------+ + + + | CALCIUM, | 9.0 | 8.6 - 10.2 | [facility] | | | PLASMA | | mg/dL | DEPARTMENT | | | (LAB) | | | OF | | | | | | PATHOLOGY | | + +---------+ + + + | BILIRUBIN | 0.7 | 0.3 - 1.2 mg/dL | [facility] | | | TOTAL | | | DEPARTMENT | | | | | | OF | | | | | | PATHOLOGY | | + +---------+ + + + | ALK PHOS | 70 | 56 - 119 U/L | [facility] | | | | | | DEPARTMENT | | | | | | OF | | | | | | PATHOLOGY | | + +---------+ + + + | AST(SGOT) | 24 | 15 - 41 U/L | [facility] | | | | | | DEPARTMENT | | | | | | OF | | | | | | PATHOLOGY | | + +---------+ + + + | SODIUM, | 139 | 134 - 143 | [facility] | | | PLASMA | | mmol/L | DEPARTMENT | | | (LAB) | | | OF | | | | | | PATHOLOGY | | + +---------+ + + + | POTASSIUM, | 4.5 | 3.4 - 5.0 | [facility] | | | PLASMA | | mmol/L | DEPARTMENT | | | (LAB) | | | OF | | | | | | PATHOLOGY | | + +---------+ + + + | CHLORIDE, | 106 | 97 - 108 mmol/L | [facility] | | | PLASMA | | | DEPARTMENT | | | (LAB) | | | OF | | | | | | PATHOLOGY | | + +---------+ + + + | TOTAL CO2, | 23 | 23 - 31 mmol/L | [facility] | | | PLASMA | | | DEPARTMENT | | | (LAB) | | | OF | | | | | | PATHOLOGY | | + +---------+ + + + | ALT (SGPT) | 17 | 13 - 48 U/L | [facility] | | | | | | DEPARTMENT | | | | | | OF | | | | | | PATHOLOGY | | + +---------+ + + + + + | Specimen | + + | Blood - Blood | + + + + + | Narrative | Performed At | + + + | [id number] Estimated GFR > 60 mL/min/1.73 sq m if non- | [facility] | | [place] [id number] Estimated GFR > 60 mL/min/1.73 sq m if | DEPARTMENT OF | | [place] GFR is estimated using the MDRD equation recommended by | PATHOLOGY | | the National Kidney Disease Education Program. Estimated GFR | | | Interpretive Information: <60 mL/min/1.73 sq m Chronic Kidney | | | Disease <15 mL/mon/1.73 sq m Kidney Failure Estimated GFR | | | greater than 60mL/min/1.73 is of limited clinical Value. The MDRD | | | equation is not valid in the following situations: - Patients under | | | 18 years of age - Severe malnutrition or obesity - Vegetarian diet | | | - Rapidly changing kidney function | | + + + + + + + + | Performing | Address | City/State/Zipcode | Phone Number | | Organization | | | | + + + + + | [facility] DEPARTMENT | [address] | [place] [address] | | | PATHOLOGY | [address] | | | + + + + + | [facility] | [address] | [place] [address] | | | PATHOLOGY | [address] | | | + + + + + CBC, WITH DIFFERENTIAL (03/06/2009 12:15 PM PDT) + + + + + + | Component | Value | Ref Range | Performed | Pathologist | | | | | At | Signature | + + + + + + | WHITE CELL | 6.9 | 4.4 - 11.0 K/cu | [facility] | | | COUNT | | mm | DEPARTMENT | | | | | | OF | | | | | | PATHOLOGY | | + + + + + + | RED CELL | 4.76 | 4.50 - 5.90 | [facility] | | | COUNT | | M/cu mm | DEPARTMENT | | | | | | OF | | | | | | PATHOLOGY | | + + + + + + | HEMOGLOBIN | 16.1 | 13.5 - 17.5 | [facility] | | | | | g/dL | DEPARTMENT | | | | | | OF | | | | | | PATHOLOGY | | + + + + + + | HEMATOCRIT | 47.3 | 41.0 - 53.0 % | [facility] | | | | | | DEPARTMENT | | | | | | OF | | | | | | PATHOLOGY | | + + + + + + | MCV | 99.3 (H) | 80.0 - 96.0 fL | [facility] | | | | | | DEPARTMENT | | | | | | OF | | | | | | PATHOLOGY | | + + + + + + | MCHC | 34.0 | 33.4 - 35.5 | [facility] | | | | | g/dL | DEPARTMENT | | | | | | OF | | | | | | PATHOLOGY | | + + + + + + | RDW | 13.9 | 11.5 - 15.0 % | [facility] | | | | | | DEPARTMENT | | | | | | OF | | | | | | PATHOLOGY | | + + + + + + | PLATELET | 229 | 150 - 400 K/cu | [facility] | | | COUNT | | mm | DEPARTMENT | | | | | | OF | | | | | | PATHOLOGY | | + + + + + + + + | Specimen | + + | Blood - Blood | + + + + + + + | Performing | Address | City/State/Zipcode | Phone Number | | Organization | | | | + + + + + | [facility] | [address] | [place] [address] | | | PATHOLOGY | [address] | | | + + + + + | [facility] | [facility] | [place] [address] | | | PATHOLOGY | [address] | | | + + + + + documented in this encounter Visit Diagnoses + + | Diagnosis | + + | Idiopathic retroperitoneal fibrosis Other ureteric obstruction | + + documented in this encounter"
--- OUTSIDE RECORDS SUMMARY | ~2020-06-26 | XMS | Encounter Summary ---
Demographics + + + | Address | [address] | | | [place] [address] | + + + | Home Phone | | + + + | Preferred Language | Unknown | + + + | Marital Status | | + + + | Lutheran Affiliation | Unknown | + + + | Race | White | + + + | Ethnic Group | Not or | + + + Author + + + | Author | [facility] | | | and [place] | + + + | Organization | [facility] | | | [...] [place] | | | | | [address] | | + + + + + Care Team Providers + +------+ + | Care Make Up Worker Name | Role | Phone | + +------+ + | Almas Licea MD | PCP | | + +------+ + Reason for Visit + + + | Reason | Comments | + + + | Follow-up | Discuss MRI | + + + Encounter Details +--------+---------+ + + + | Date | Type | Department | Care Team | Description | +--------+---------+ + + + | 10/12/ | Office | [facility] | Matt Sandoval | Lumbar radiculopathy | | 2016 | Visit | NEUROSURGERY [address] | [address] | (Primary Dx); | | | | [address] [place], [place] | Lumbar facet | | | | [place], [place] | [address] | arthropathy; | | | | [address] | | Myelopathy (HCC); | | | | [phone] | | DDD (degenerative | | | | | | disc disease), | | | | | | cervical | +--------+---------+ + + + Social History [...] + + + | Blood Pressure | 128/84 | 10/12/2015 9:08 AM | | | | | PST | | + + + + + | Pulse | 95 | 10/12/2015 9:08 AM | | | | | PST | | + + + + + | Temperature | - | - | | + + + + + | Respiratory Rate | 16 | 10/12/2015 9:08 AM | | | | | PST | | + + + + + | Oxygen Saturation | - | - | | + + + + + | Inhaled Oxygen | - | - | | | Concentration | | | | + + + + + | Weight | 63 kg (139 lb) | 10/12/2015 9:08 AM | | | | | PST | | + + + + + | Height | 167.6 cm (5' 6") | 10/12/2015 9:08 AM | | | | | PST | | + + + + + | Body Mass Index | 22.44 | 10/12/2015 9:08 AM | | | | | PST | | + + + + + documented in this encounter Patient Instructions Patient Instructions Matt Sandoval PA - 10/12/2015 10:30 AM PSTToday we discussed y our MRI and your ongoing problems. We decided to continue with conservative therapy. You ania wallace stated to me that you have a referral to a neurologist. He will be checking on that ref erral and discuss your issues with a neurologist. Please continue to follow-up with your [facility] care provider. We are also ordering x-rays of your neck. If there are any unusual ab normalities on your neck x-rays we will contact you. Otherwise we will see you on an as shirley rodrigues ( documented in this encounter Progress Notes Matt Sandoval PA - 10/12/2015 12:56 PM PSTFormatting of this note might be differen t from the original. CLIVE Simon [address] [facility], [address] [place] [address] FAX: NEUROSURGERY HISTORY AND PHYSICAL EXAMINATION CHIEF COMPLAINT: Chief Complaint Patient presents with Follow-up Discuss MRI HISTORY OF PRESENT ILLNESS: The patient is a 70 y.o. male with the complaint of back and r ight hip pain. The patient today returns accompanied by his to review the MRI of his c ervical spine. The patient did get x-rays of his cervical spine however flexion and extensi on views were not performed. The patient states approximately 10 years ago he had a CVA which affected not only his spe ech but also his right leg. He underwent physical therapy and actually did fairly well. He has significant improvements of his dysfunction although he did remain having some weakness . Unfortunately over the last couple years he is noticing increasing problems again with ri ght leg weakness. He is undergone physical therapy without much improvement. He complains of low back pain which radiates mostly to the right hip. He notices also worsening balance issues as well as leg weakness with walking. He has loss of fine motor skills of his hands as well as changes in his handwriting. Despite significant amount of therapy his symptoms c ontinue to worsen. He has difficult time with weakness of his leg. He seems to Shaan his l eg at this time. He does use an AFO The patient does not report any change in bowel or bladder function recently. His symptoms improve with changing position and walking. His symptoms worsen with standing and sitting. He has tried PT and Injections. . 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 citalopram (CELEXA) 40 mg tablet Take 40 mg by mouth Daily. losartan (COZAAR) 50 mg tablet as directed mycophenolate (CELLCEPT) 500 MG tablet as directed (Patient taking differently: Take 1, 000 mg by mouth Daily.) omeprazole ([facility] OMEPRAZOLE) 20 mg TBEC as directed oxyCODONE (ROXICODONE) 5 mg tablet Take 1-2 tablets by mouth every 6 hours as needed fo r Pain. 30 tablet 0 warfarin (COUMADIN) 5 mg tablet Take 22.5 [...] no rheumatoid arthritis. PHYSICAL EXAMINATION: Blood pressure 128/84, pulse 95, resp. rate 16, height 1.676 m (5' 6"), weight 63.05 kg (13 9 lb). Body mass index is 22.45 kg/(m^2). GENERAL: Kevin Aleman . is in no acute distress with unlabored respirations. The clive tiedenny does appear uncomfortable throughout the exam today. HEENT: HEAD/FACE: EYES: EARS: NASOPHARNYX: OROPHARNYX: Normocephalic and atraumatic. There are no areas of recent trauma. Normal sclerae without icterus. No drainage or tenderness. Clear without drainage. Clear without erythema. NECK (ANTERIOR): Supple and without palpable masses. CHEST: Clear to ausculation without crackles or [...] no signficant bilaterally myofascial tenderness. EXTREMITIES: No cyanosis, clubbing, or edema. Distal pulses are palpable. NEUROLOGICAL EXAM: MENTAL STATUS: The patient is awake, alert, and oriented. He follows simple and complex commands. His speech is fluent, he comprehends speech well, and he repeats well. He has no apparent deficits with short or intermediate frame tender memory. CRANIAL NERVES: II: Acuity is intact. Reed are full to confrontation. III, IV, : The pupils are reactive. Extraocular movements are intact. No ptosis is note d. V: Facial sensation is intact and symmetric. VII: Facial movements are symmetric. VIII: Hearing is intact bilaterally. IX, X: The uvula and palate move appropriately. XI: Shrug is equal bilaterally. XII: Tongue protrusion is midline. MOTOR EXAM: (5 IS NORMAL) * Indicates pain limited MUSCLE/ MOVEMENT: RIGHT LEFT Deltoids 5 5 Biceps 5 5 Triceps 5 5 Wrist Flexion 5 5 Wrist Extension 5 5 Median Intrinsics 5 5 Ulnar Intrinsics 5 5 Triple Air Valve Tester Strength 5 5 Hip Flexion 4 5 Hip Extension 5 5 Knee Flexion 5 5 Knee Extension 5 5 Dorsiflexion 5 5 Extensor Hallicus Longus 4- 5 Plantarflexion 5 5 SENSORY EXAM: Sensory exam shows no diminished sensation to light touch or pain throughout the upper and lower extremities. REFLEXES: (2 OR 2+ IS NORMAL) REFLEX: RIGHT LEFT BICEPS 3+ 3+ BRACHIORADIALIS 3+ 3+ TRICEPS 3+ 3+ PATELLAR 3+ 3+ ACHILLES 3+ 3+ BESS'S positive positive PLANTAR DOWNGOING DOWNGOING GAIT: Gait is steady. RADIOGRAPHIC REVIEW: The patient's imaging was reviewed in detail with the patient today during the visit. The MRI from his lumbar spine shows old compression fracture of T12. This appears to be age ind eterminate and not acute. He has significant degenerative changes of L3-L4 5 on plain x-ray s he has spondylolisthesis with some instability noted as well. The patient's MRI of the cervical spine shows multiple levels of degenerative disc disease. The patient does have spinal stenosis which is worse at L5 6 at moderate to severe. He jimenez s moderate spinal stenosis noted at levels see 3 through C5. The patient's MRI of his thoracic spine does not show any significant central stenosis. ASSESSMENT: NEUROSURGICAL DIAGNOSES: Encounter Diagnoses Name Primary? Lumbar radiculopathy Yes Lumbar facet arthropathy Myelopathy (HCC) DDD (degenerative disc disease), cervical GENERAL DIAGNOSES: Past Medical History Diagnosis Date GERD (gastroesophageal reflux disease) Depression High cholesterol Stroke (HCC) Hypertension Back pain of thoracolumbar region 08/29/2012 Facet arthritis of lumbar region 02/01/2015 Trochanteric bursitis of right hip 02/01/2015 Poor circulation PLAN: Kevin Aleman Sr. presented today, and it was a pleasure seeing this patient and assess ing his problems. I reviewed the MRIs with as well as reviewed his symptoms. At this time we are not convinced that his symptoms are coming from his neck. The patient had a previous history of a CVA and has atrophic changes of his brain after reviewing an MRI from 4 years ago. He jimenez s significant left leg weakness which cannot attribute neurologic impingement of his lumbar spine. Certainly his low back pain could be secondary to the spondylolisthesis which is not ed. This may be able to be addressed with surgery on his low back however I do not believe that surgery will improve his left leg weakness. I've recommended to the patient that he continue with conservative care. I've also recomme nded that he continue with plans to see a neurologist who can evaluate not only his brain sy mptoms but also evaluate his hyperreflexia and balance issues as well as and consider nerve testing of his upper and/or lower extremities. If the patient had significant radiculopathy noted on his nerve testing we could consider s urgery on his low back, with the hopes of improving his leg weakness. At this time however we could not guarantee he would have significant improvement after lumbar surgery and he wo uld have a very difficult recovery. The patient will continue to follow-up with his primary care provider. He believes he has a referral in place with a neurologist. I have asked him to pursue this. We would be happy to see him in the future on an as-needed basis to review his evaluation and make further re commendations about surgery. ELECTRONICALLY SIGNED BY: CLIVE Simon, 10/12/2015 12:56 documented in th is encounter Plan of Treatment + +---------+--------+ + + | Name | Type | Priori | Associated Diagnoses | Order Schedule | | | | ty | | | + +---------+--------+ + + | XR Cervical Spine 4 | Imaging | Routin | DDD (degenerative | Ordered: 10/12/2015 | | or 5 Vws | | e | disc disease), | | | | | | cervical | | + +---------+--------+ + + documented as of this encounter Procedures + +--------+ + + + | Procedure Name | Priori | Date/Time | Associated Diagnosis | Comments | | | ty | | | | + +--------+ + + + | IMAGING REPORT - | | 10/09/2015 | | | | EXTERNAL SCAN | | 12:00 AM | | | | | | PST | | | + +--------+ + + + | IMAGING REPORT - | | 10/02/2015 | | | | EXTERNAL SCAN | | 12:00 AM | | | | | | PST | | | + +--------+ + + + documented in this encounter Visit Diagnoses + + | Diagnosis | + + | Lumbar radiculopathy - Primary Thoracic or lumbosacral neuritis or radiculitis, | | unspecified | + + | Lumbar facet arthropathy Lumbosacral spondylosis without myelopathy | + + | Myelopathy (HCC) Unspecified disease of spinal cord | + + | DDD (degenerative disc disease), cervical Degeneration of cervical intervertebral | | disc | + + documented in this encounter
--- OUTSIDE RECORDS SUMMARY | ~2020-06-26 | XMS | Encounter Summary ---
Demographics + + + | Address | [address] | | | [place] [address] | + + + | Home Phone | | + + + | Preferred Language | Unknown | + + + | Marital Status | | + + + | Pentecostal Affiliation | Unknown | + + + | Race | White | + + + | Ethnic Group | Not or | + + + Author + + + | Author | [facility] | | | and [place] | + + + | Organization | [facility] | | | and [...] [place] | | | | | [address] | | + + + + + Care Team Providers + +------+ + | Care Religious Leader Name | Role | Phone | + +------+ + | Almas Licea MD | PCP | | + +------+ + Reason for Referral Diagnostic/Screening (Urgent) +--------+--------+ + + + + | Status | Reason | Specialty | Diagnoses / | Referred By | Referred To | | | | | Procedures | Contact | Contact | +--------+--------+ + + + + | Closed | | Radiology | Diagnoses | William Garcia | [facility] | | | | | Lumbar | MD [address] | [address] | | | | | radiculopath | [address] | [place], | | | | | y S/P | [place], | [place] | | | | | lumbar | [place] [address] | [address] | | | | | fusion | Phone: | Phone: | | | | | Procedures | [phone] | [phone] | | | | | MRI Lumbar | Fax: | Fax: | | | | | Spine w wo | [phone] | [phone] | | | | | Contrast | | | | | | | MRI | | | | | | | (lumbar) | | | +--------+--------+ + + + + Reason for Visit + + + | Reason | Comments | + + + | Follow-up | 12W PO | + + + Encounter Details +--------+---------+ + + + | Date | Type | Department | Care Team | Description | +--------+---------+ + + + | 11/12/ | Office | [facility] | William Garcia MD | Lumbar radiculopathy | | 2017 | Visit | NEUROSURGERY [address] | [address] | (Primary Dx); S/P | | | | [address] | [place] [address] | lumbar fusion | | | | [place], [place] | [phone] | | | | | [address] | | | | | | [phone] | | | +--------+---------+ + + + [...] + + + | Blood Pressure | 130/84 | 11/12/2016 11:40 AM | | | | | PST | | + + + + + | Pulse | 78 | 11/12/2016 11:40 AM | | | | | PST | | + + + + + | Temperature | - | - | | + + + + + | Respiratory Rate | - | - | | + + + + + | Oxygen Saturation | - | - | | + + + + + | Inhaled Oxygen | - | - | | | Concentration | | | | + + + + + | Weight | 65.1 kg (143 lb 8 | 11/12/2016 11:40 AM | | | | oz) | PST | | + + + + + | Height | 167.6 cm (5' 6") | 11/12/2016 11:40 AM | | | | | PST | | + + + + + | Body Mass Index | 23.16 | 11/12/2016 11:40 AM | | | | | PST | | + + + + + documented in this encounter Functional Status + + + [...] + + documented as of this encounter Progress Notes William Garcia MD - 11/12/2016 11:46 AM PSTFormatting of this note might be different from t he original. William Garcia MD [address] [facility], [address] [place] [address] FAX: NEUROSURGERY FOLLOW-UP CHIEF COMPLAINT: Chief Complaint Patient presents with Follow-up 12W PO HISTORY OF PRESENT ILLNESS: The patient is a 71 y.o. male that had a lumbar fusion for rad iculopathy around 3 months ago. He returns and overall is doing fair. The patient complain s of continued weakness. He has ongoing weakness in his right leg secondary to a CVA. He c omplains of pain in the left lateral abdominal area over his incision. He has a burning to the skin in his medial and anterior legs. This has not improved with time and he feels it i s worsening again. He did not start PT due to pain and other ongoing medical issues. CURRENT MEDICATIONS: Current Outpatient Prescriptions Medication Sig Dispense Refill aspirin 325 mg tablet atorvaSTATin (LIPITOR) 40 mg tablet Take 40 mg by mouth nightly. baclofen (LIORESAL) 20 mg tablet Take 1 tablet by mouth nightly. (Patient taking differ ently: Take 20 mg by mouth 2 times daily.) 30 tablet 0 citalopram (CELEXA) 40 mg tablet Take 40 mg by mouth Daily. finasteride (PROSCAR) 5 mg tablet Take 5 mg by mouth Daily. LOSARTAN POTASSIUM PO Take 5 mg by mouth. mycophenolate (CELLCEPT) 500 MG tablet as directed (Patient taking differently: Take 50 0 mg by mouth Daily.) omeprazole (PRILOSEC) 20 mg capsule oxyCODONE (ROXICODONE) 5 mg tablet Take 1 tablet by mouth every 4 hours as needed for P ain. 50 tablet 0 warfarin (COUMADIN) 5 mg tablet Take 5 mg by mouth Daily. Cuauhtemoc Lozano,Sat and Sun warfarin (COUMADIN) 7.5 mg tablet Take 7.5 mg by mouth. Mon,Citlali and Fri No current facility-administered medications for this visit. ALLERGIES: Allergies Allergen Reactions Hydrocodone Itching Severe itching Acetaminophen Itching Diphenhydramine Itching Intense itching without rash. SOCIAL HISTORY: The patient reports that he quit smoking about 15 years ago. His smoking use included Ciga rettes. He started smoking about 45 years ago. He has a 30 pack-year smoking history. He blanca t smokeless tobacco use about 30 years ago. He reports that he does not drink alcohol or use illicit drugs. REVIEW OF SYSTEMS GENERALLY: No fever, no night sweats, no anemia, no fatigue, no recent profound weight ch anges. EYES: No eye problems, + use of corrective lenses, no eye injury, no double vision, no bli ndness. EARS, NOSE, AND THROAT: + changes in taste or smell, + hearing difficulty, + ringing in th e ears, no ear drainage, no dizziness, + voice changes, + difficulty swallowing, + significa nt snoring, + sleep apnea, no sinus problems, no major dental work. NEUROLOGICALLY: Please see the review of systems discussed above in the history of present illness. In addition, the patient has weakness, muscle aching, coordination difficulty, ch shirley in walk, back injury, pain in back, stroke and speech difficulty. PSYCHIATRIC: + depression, + sleep disorders, + anxiety, no bipolar disorder, no psychotic episodes. CARDIOVASCULAR: No heart attacks, no heart murmur, no heart fluttering, no chest pain, + a nkle swelling. LUNG DISEASE: + shortness of breath, no cough, no tuberculosis, no bloody cough, no asthm a, no emphysema/COPD. GASTROINTESTINAL: No bowel disease, no nausea or vomiting, no rectal bleeding, no constipa tion, no stool incontinence, no liver disease, no gallbladder disease, no abdominal pain, no ulcers. KIDNEY DISEASE: + urinary frequency, no painful or difficult urination, no incontinence. ENDOCRINE: No diabetes, no thyroid disease, no osteopenia or osteoporosis, no breast drain age. SKIN: No breast lumps, no skin changes, no rashes, no itches. HEMATOLOGIC/LYMPHATIC: No enlarged lymph nodes, no easy or unusual bleeding, no personal h istory of cancer. RHEUMATOLOGIC: No joint arthritis, no rheumatoid arthritis. Other: Impotence. INTERIM PHYSICAL EXAMINATION: Blood pressure 130/84, pulse 78, height 1.676 m (5' 6"), weight 65.091 kg (143 lb 8 oz). Renny dy mass index is 23.17 kg/(m^2). GENERAL: Kevin Aleman Sr. is in no acute distress with unlabored respirations. SPINE: The patient s incisions are healing well without drainage, significant erythema, o r discharge. EXTREMITIES: No lower extremity edema. NEUROLOGICAL EXAMINATION: MENTAL STATUS: The patient is awake, alert, and oriented. He follows simple and complex commands MOTOR EXAM: Motor strength is 5/5 in lower extremities with the exception of ongoing weakne ss on the right side consistent with his preoperative exam. An AFO is in place. SENSORY EXAM: The sensory examination is unchanged when compared to the preoperative exam. RADIOGRAPHIC REVIEW: The patient s x-rays show stable instrumentation and alignment and were reviewed with the patient today. Increased bony fusion is noted but it is not complete. ASSESSMENT: Encounter Diagnoses Name Primary? 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 The patient does not see any improvements since his surgery. He was doing better for a short period of time but is not making any further progr ess. Before increasing his activities, I would like him to get a new MRI to follow-up on his spa ce for his nerves. I am hoping to see appropriate spacing and good healing. If so, I would likely recommend h e work with therapy. I will review the MRI once complete and make further recommendations. ELECTRONICALLY SIGNED BY: William Garcia MD, 11/12/2016 12:11 documented in this encou nter Plan of Treatment + +---------+--------+ + + | Name | Type | Priori | Associated Diagnoses | Order Schedule | | | | ty | | | + +---------+--------+ + + | MRI Lumbar Spine w | Imaging | [facility] | Lumbar | Expected: 11/22/2016 | | wo Contrast | | | radiculopathy S/P | (Approximate), | | | | | lumbar fusion | Expires: 11/11/2017 | + +---------+--------+ + + | Basic Metabolic | Lab | Routin | Lumbar | 1 Occurrences | | Panel | | e | radiculopathy S/P | starting 11/12/2016 | | | | | lumbar fusion | until 11/12/2017 | + +---------+--------+ + + documented as of this encounter Procedures + +--------+ + + + | Procedure Name | Priori | Date/Time | Associated Diagnosis | Comments | | | ty | | | | + +--------+ + + + | IMAGING REPORT - | | 11/19/2016 | | Results for this | | EXTERNAL SCAN | | 12:00 AM | | procedure are in the | | | | PST | | results section. | + +--------+ + + + | IMAGING REPORT - | | 10/11/2016 | | Results for this | | EXTERNAL SCAN | | 12:00 AM | | procedure are in the | | | | PST | | results section. | + +--------+ + + + documented in this encounter Results IMAGING REPORT - EXTERNAL SCAN (11/19/2016 12:00 AM PST) + + + | Narrative | Performed At | + + + | Ordered by an | | | unspecified provider. | | + + + IMAGING REPORT - EXTERNAL SCAN (10/11/2016 12:00 AM PST) + + + | Narrative | Performed At | + + + | Ordered by an | | | unspecified provider. | | + + + documented in this encounter Visit Diagnoses + + | Diagnosis | + + | Lumbar radiculopathy - Primary Thoracic or lumbosacral neuritis or radiculitis, | | unspecified | + + | S/P lumbar fusion Arthrodesis status | + + documented in this encounter
--- OUTSIDE RECORDS SUMMARY | ~2020-06-26 | XMS | Encounter Summary ---
Demographics + + + | Address | [address] | | | [place] [address] | + + + | Home Phone | | + + + | Preferred Language | Unknown | + + + | Marital Status | | + + + | Buddhist Affiliation | Unknown | + + + | Race | White | + + + | Ethnic Group | Not or | + + + Author + + + | Author | [facility] | | | and [place] | + + + | Organization | [facility] | | | and [...] [place] | | | | | [address] | | + + + + + Care Team Providers + +------+ + | Care Meat Slicer Name | Role | Phone | + +------+ + | Harris Sauceda MD | PCP | | + +------+ + Encounter Details +--------+ + + + + | Date | Type | Department | Care Team | Description | +--------+ + + + + | 01/06/ | Imaging | [facility] | Provider, | | | 2020 | Exam | [facility] | [address] | | | | | IMAGING [address] | [address] | | | | | [address] | [place] [address] | | | | | [place] [address] | | | | | | [phone] | | | +--------+ + + + [...] | + +--------+ + + + | XR HIP LEFT 2-3 | Routin | 05/15/2017 | | Results for this | | VIEWS | e | 12:10 AM | | procedure are in the | | | | PDT | | results section. | + +--------+ + + + documented in this encounter Results XR Hip Left 2-3 Views (05/15/2017 12:10 AM PDT) + + | Specimen | + + | | + + + + + | Narrative | Performed At | + + + | External films for comparison only | [facility] | | | | | No results will be in the chart. | | + + + + +---------+ + + | Performing | Address | City/State/Zipcode | Phone Number | | Organization | | | | + +---------+ + + | [facility] | | | | + +---------+ + + documented in this encounter Visit Diagnoses Not on filedocumented in this encounter"
--- OUTSIDE RECORDS SUMMARY | ~2020-06-26 | XMS | Encounter Summary ---
Demographics + + + | Address | [address] | | | [place] [address] | + + + | Home Phone | | + + + | Preferred Language | Unknown | + + + | Marital Status | | + + + | Jainism Affiliation | Unknown | + + + | Race | White | + + + | Ethnic Group | Not or | + + + Author + + + | Author | [facility] | | | and [place] | + + + | Organization | [facility] | | [...] [place] | | | | | [address] | | + + + + + Care Team Providers + +------+ + | Care Cra Officer Name | Role | Phone | + +------+ + PCP | Unavailable | + +------+ + Encounter Details +--------+ + + + + | Date | Type | Department | Care Team | Description | +--------+ + + + + | 04/20/ | [facility] | [facility] | | | | 1998 | Encounter | MED CTR XRAY [address] | | | | | | [place] | | | | | | [place] [address] | | | | | | [phone] | | | +--------+ + + + [...]
--- OUTSIDE RECORDS SUMMARY | ~2020-06-26 | XMS | Encounter Summary ---
Demographics + + + | Address | [address] | | | [place] [address] | + + + | Home Phone | | + + + | Preferred Language | Unknown | + + + | Marital Status | | + + + | Sikh Affiliation | Unknown | + + + | Race | White | + + + | Ethnic Group | Not or | + + + Author + + + | Author | [facility] | | | and [place] | + + + | Organization | [facility] | | | [...] [place] | | | | | [address] | | + + + + + Care Team Providers + +------+ + | Care Curriculum Advisory Teacher Name | Role | Phone | + +------+ + | Zainab Franco MD | PCP | | + +------+ + Reason for Referral Evaluate & Treat (Routine) +--------+ + + + + + | Status | Reason | Specialty | Diagnoses / | Referred By | Referred To | | | | | Procedures | Contact | Contact | +--------+ + + + + + | Closed | Specialty | Orthopedic | Diagnoses | Jermaine, | Hany, | | | Services | Surgery | Ankle joint | Garth Woods MD | Gerardo Naik MD | | | Required | | | [address] | | | | | contracture, | [address] | [address] [place] | | | | | right | [place], | [place], [place] | | | | | Spastic | [place] [address] | [address] Phone: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 | Phone: | [phone] | | | | | affecting | [phone] | Fax: | | | | | dominant | Fax: | [phone] | | | | | side (HCC) | [phone] | | | | | | Equinovarus | | | | | | | deformity, | | | | | | | acquired, | | | | | | | right Pain | | | | | | | in ankle | | | | | | | joint | | | | | | | increased by | | | | | | | plantar | | | | | | | flexion | | | | | | | Muscle spasm | | | | | | | of right | | | | | | | lower | | | | | | | extremity | | | +--------+ + + + + + Reason for Visit + + + | Reason | Comments | + + + | Spasms | right leg | + + + | Foot Pain | right | + + + Evaluate & Treat (Routine) +--------+--------+ + + + + | Status | Reason | Specialty | Diagnoses / | Referred By | Referred To | | | | | Procedures | Contact | Contact | +--------+--------+ + + + + | Closed | | Physical | Diagnoses | Caden, | Garth Dean | | | | Medicine and | Muscle | Carlos Wallace, | Victoriano Woods MD [address] | | | | Rehabilitatio | spasms of | [facility] [address] | | | | n | lower | [address] | [place], | | | | | extremity | [place] [address] | [place] [address] | | | | | | [place], | Phone: | | | | | | [place] | [phone] | | | | | | [address] | Fax: | | | | | | Phone: | [phone] | | | | | | [phone] | | | | | | | Fax: | | | | | | | [phone] | | +--------+--------+ + + + + Encounter Details +--------+---------+ + + + | Date | Type | Department | Care Team | Description | +--------+---------+ + + + | 10/14/ | Office | [facility] | Garth Dean, | Ankle joint | | 2018 | Visit | PHYSIATRY [address] | MD [address] | contracture, right | | | | [address] | [place] | (Primary Dx); | | | | [place] | [address] | SPASTIC HEMIPLEGIA | | | | [address] | | AFFECTING DOMINANT | | | | [phone] | | SIDE; Equinovarus | | | | | | deformity, acquired, | | | | | | right; Pain in | | | | | | ankle joint | | | | | | increased by plantar | | | | | | flexion; Muscle | | | | | | spasm of right lower | | | | | | extremity | +--------+---------+ + + + Social History [...] + + + | Blood Pressure | 120/72 | 10/14/2018 11:38 AM | | | | | PST | | + + + + + | Pulse | 70 | 10/14/2018 11:38 AM | | | | | PST [...] + + + + | Weight | 64.4 kg (142 lb) | 10/14/2018 11:38 AM | | | | | PST | | + + + + + | Height | 167.6 cm (5' 6") | 10/14/2018 11:38 AM | | | | | PST | | + + + + + | Body Mass Index | 22.92 | 10/14/2018 11:38 AM | | | | | PST [...] + + documented as of this encounter Patient Instructions Patient Instructions Amairani Salazar RN - 10/14/2018 11:20 AM PSTWe will send a referral to orthopedic surgery for your to discussTendon lengthening vs tendon transfer for ankle lucille ntar flexion and ankle equinovarus Deformity. Keep up with your routine stretching and exercise. documented in this encounter Progress Notes Garth Dean MD - 10/14/2018 11:20 AM PSTFormatting of this note might be different fro m the original. Garth Dean MD [address] [place] [address], [address] [place] [address] FAX: PHYSICAL MEDICINE AND REHABILITATION H&P CHIEF COMPLAINT: Chief Complaint Patient presents with Spasms right leg Foot Pain right HISTORY OF PRESENT ILLNESS: Kevin Gutierrez Ash . s a 73 y.o. male being seen today at the request of Zainab Franco MD for the complaint of Muscle spasms of the right lower extremit y. He indicates he suffered a stoke approximately 13 yeas ago, he indicates rehabilitated we ll, but noticed increasingly worsening symptoms of weakness and muscle spasms to the right a rm and leg. Kevin Aleman Sr. reports constant spasm of the right leg. Kevin Aleman Sr. rates the pain as mild. The symptoms of pain are rare, intermittent. Kevin Aleman Sr. describes the pain as tight band. Kevin Aleman Sr. does not report numbness in the legs. He does report weakness of th e right arm and right leg. He uses a 2 wheeled walker to aid with ambulation. He reports con stant contracture and frequent spasms of leg muscles. He reports he is starting to experienc e spasms of he right had as well. Kevin Aleman Sr. does not report any change in bowel or bladder function or saddle ane sthesia recently. His symptoms improve with nothing. His symptoms worsen with nothing. Kevin Aleman Sr. has tried baclofen, botox injections, AFO, PT and Braces. Kevin Aleman Sr. indicates he was last fitted with an AFO approximately 5 years ago. Kevin Aleman Sr. most recent course of physical therapy was completed approximately 12-18 months ago at the [facility]. Kevin Aleman Sr. is currently taking gabapentin 300 mg twice daily [facility] for treatment of He pain. PAST MEDICAL HISTORY: Past Medical History: Diagnosis Date Adverse effect of anesthesia high blood pressure after stomach biopsy Alcoholism ([facility]) Anemia Back pain of thoracolumbar region 08/29/2012 BPH with urinary obstruction Cataract Colonic disorder CVA (cerebral vascular accident) ([facility]) Depression Dysphagia Edema Esophageal reflux Essential hypertension Facet arthritis of lumbar region ([facility]) 02/01/2015 Facial weakness late Cvd effects Foot drop, right foot GERD (gastroesophageal reflux disease) Hiatal hernia High cholesterol History of blood clots HLD (hyperlipidemia) Hypercholesterolemia Idiopathic retroperitoneal fibrosis Involuntary movements Lumbago Other muscle spasm Poor circulation RLS (restless legs syndrome) Spastic hemiplegia affecting right dominant side ([facility]) Stroke ([facility]) right sided weakness Trochanteric bursitis of right hip 02/01/2015 Vitamin B12 deficiency Vitamin D deficiency PAST SURGICAL HISTORY: Past Surgical History: Procedure Laterality Date ABDOMINAL RETROPERITONEAL BIOPSY 2008 ANUS SURGERY Right 2012 lateral internal sphincterectomy CATARACT REMOVAL Bilateral [address] Hudson, Rectal irritation HEMORRHOID SURGERY 2009 LUMBAR SPINE SURGERY Right 07/03/2016 Procedure: L2-3, L3-4 Lateral Anterior Interbody Fusion, L4-5 Transforaminal Lumbar Interb nathanael Fusion, Posterior Instrumentation at L2-3, L3-4, L4-5; Surgeon: William Garcia MD; Locat ion: [facility] MAIN OR MECKEL DIVERTICULUM EXCISION 2007 incidental removal SALIVARY GLAND SURGERY biopsy SKIN CANCER EXCISION 2013 cancer spots THUMB AMPUTATION Left 2009 Partial thumb amputation THUMB AMPUTATION Right 2010 partial UPPER GASTROINTESTINAL ENDOSCOPY 07/02/2017 Felix Graham MD VASECTOMY CURRENT MEDICATIONS: Current Outpatient Prescriptions Medication Sig Dispense Refill aspirin 325 mg tablet Take 325 mg by mouth nightly. atorvaSTATin (LIPITOR) 40 mg tablet Take 40 mg by mouth nightly. chlorthalidone 25 mg tablet Take 25 mg by mouth Daily. citalopram (CELEXA) 40 mg tablet Take 40 mg by mouth Daily. diclofenac (VOLTAREN) 1% GEL Apply 1 g topically 2 times daily. finasteride (PROSCAR) 5 mg tablet Take 5 mg by mouth Daily. gabapentin (NEURONTIN) 300 mg capsule Take 300 mg by mouth 2 times daily. losartan (COZAAR) 100 MG tablet Take 100 mg by mouth Daily. mycophenolate (CELLCEPT) 500 MG tablet as directed (Patient taking differently: Take 1, 000 mg by mouth Daily.) omeprazole (PRILOSEC) 20 mg capsule Take 20 mg by mouth Daily. oxyCODONE (ROXICODONE) 5 mg tablet Take 1 tablet by mouth every 4 hours as needed for P ain. (Patient taking differently: Take 5 mg by mouth every 6 hours as needed for Pain.) 50 t ablet 0 potassium chloride (KLOR-CON) 10 mEq CR tablet Take 10 mEq by mouth Daily. pramipexole (MIRAPEX) 0.25 mg tablet Take 0.25 mg by mouth nightly. warfarin (COUMADIN) 5 mg tablet Take 5 mg by mouth Daily. Or as directed No current facility-administered medications for this visit. ALLERGIES: Allergies Allergen Reactions Hydrocodone Itching Severe itching Severe itching Duloxetine Other (See Comments) Reaction not specified in outside medical records. Acetaminophen Itching Diphenhydramine Itching Intense itching without rash. Intense itching without rash. SOCIAL HISTORY: The patient reports that he quit smoking about 17 years ago. His smoking use included Ciga rettes. He started smoking about 47 years ago. He has a 30.00 pack-year smoking history. He quit smokeless tobacco use about 31 years ago. He reports that he does not drink alcohol or use drugs. FAMILY HISTORY: Family History Problem Relation Age of Onset Hypertension Mother Stroke Mother Stroke Father Alcohol abuse Father Prostate cancer Father Arthritis Other Diabetes Other High cholesterol Other REVIEW OF SYSTEMS: Review of Systems Constitutional: Negative for diaphoresis and malaise/fatigue. HENT: Positive for hearing loss. Eyes: Glasses Respiratory: Positive for shortness of breath. Negative for cough, hemoptysis and sputum pr oduction. Snoring Musculoskeletal: Positive for joint pain. Neurological: Positive for weakness. Psychiatric/Behavioral: Positive for depression. The patient has insomnia. PHYSICAL EXAMINATION: Blood pressure 120/72, pulse 70, height 1.676 m (5' 6"), weight 64.4 kg (142 lb). Body mass index is 22.92 kg/m. GENERAL: He does not appear uncomfortable when seated. HEENT: HEAD/FACE: EYES: Normocephalic and atraumatic. There are no areas of recent trauma. Normal sclerae without icterus. SKIN Limited skin exam shows no significant rashes or lesions. CHEST: The patient is in no acute respiratory distress with unlabored respirations. HEART: There is not lower extremity edema. ABDOMEN: The patient is not overweight. NEUROLOGIC: The patient is awake, alert, and oriented to time, place, person. He follows simple and complex commands. His speech is fluent. He comprehends speech well. He has no apparent deficits with short or shelter memory. He has appropriate fund of knowledge Cranial nerves appear grossly intact. Sensory exam:intact sensation to light touch in the upper and lower extremities. MUSCULOSKELETAL Supination of the right foot. Plantar flexion contracture, at max dorsiflexion reaches neural 90 degree position Clawing of toes Modified Santos scale:4/5 to gastroc soleus complex Modified Santos scale:5/5 to toe flexors Mild equinovarus Deformity of right ankle RADIOGRAPHIC REVIEW: No new imaging to review at this. IMPRESSION: 1. SPASTIC HEMIPLEGIA AFFECTING DOMINANT SIDE 2. Equinovarus deformity, acquired, right 3. Pain in ankle joint increased by plantar flexion 4. Muscle spasm of right lower extremity PLAN: 1. Kevin Gutierrez Ash Tapia presents to the clinic today for evaluation and treatment of right lower extremity spasticity. Kevinjp Gutierrez Ash [place]ia was seen for this complain in clinic in 2 012. 2. Today we dicussed that individuals may find that they gradually develop increased tone a nd muscle spasm post stoke. 3. We dicussed that botox may help to relax the activation and episodic cramping, although botox is unable to modify an existing contracture. Kevin Aleman Sr. has a degree of con tracture to his right lower extremity. We dicussed that the use of botox may help to augment the worsening of existing contracture of prevent development of new contractures. We disused treatments of contracture including serial casting or surgical tendon release. Serial casting to reduce existing contracture with the goal of improving mobility and range of motion. 4.We discussed that Kevin Aleman Sr. should participate in Physical therapy too work o n stretching and strengthening the muscles. He declines this referral at this time. 5. We also discussed that he should return to the prosthesis and orthotic Provider to be ev aluation for a new AFO, he declines luxembourgish at this time. We reviewed the above plan in detail during today's visit, Kevin Aleman Sr. indicates that he feel he has already exhausted the prior discussed intervention. He strongly indicate s that he is most interested in surgical intervention. 6.Kevin was advised that surgical intervention may be helpful, but that over time spasm wi ll continue and may cause returning symptoms. He was advised that it is imperative that he participate in routine stretching to maintain rang of motion. 7. Kevin Aleman Sr. will be evaluated for treatment with Dr. Leahc in Orthopedic s urgery to discuss Tendon lengthening vs tendon transfer for ankle plantar flexion and ankle equinovarus deformity. 8. Kevin Aleman Sr. was advised that if at any point in the future, if he decides to m ove forward with treatment with PT, Botox, or bracing/casting he should return to the clinic . In summary, Kevin Aleman Sr. 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 He has participated in physical therapy and serial casting in the past. He has tried Botox for spasticity in the distant past, but nearly 7 years ago. He was given the option of managing his symptoms through Botox, physical therapy, and seria l casting. He is not interested in this option at this time. He would like surgical treatm ent, such as tendon lengthening. Orthopedic surgery consult has been requested to consider tendon lengthening and possible tendon transfer procedure. Thank you for allowing me to be involved in the care of your patient. If you have any ques tions regarding the care of your patient please don't hesitate to call. Approximately 45 minutes was spent face to face with Kevin Aleman ., over half of wh ich was spent formulating and discussing their medical treatment plan. I, Garth Dean MD personally performed the services described in this documentation, as scribed by in my presence, Amairani Salazar RN and are both accurate and complete. Garth Dean MD - 10/14/2018 CC:Zainab Franco MD documented in this en counter Plan of Treatment + + +--------+ + + | Name | Type | Priori | Associated Diagnoses | Order Schedule | | | | ty | | | + + +--------+ + + | * [facility] [place] | Outpatient | Routin | Ankle joint | Ordered: 10/14/2018 | | Orthopedic Surgery - | Referral | e | contracture, right | | | AMB Referral | | | SPASTIC HEMIPLEGIA | | | | | | AFFECTING DOMINANT | | | | | | SIDE Equinovarus | | | | | | deformity, acquired, | | | | | | right Pain in | | | | | | ankle joint | | | | | | increased by plantar | | | | | | flexion Muscle | | | | | | spasm of right lower | | | | | | extremity | | + + +--------+ + + documented as of this encounter Visit Diagnoses + + | Diagnosis | + + | Ankle joint contracture, right - Primary | + + | SPASTIC HEMIPLEGIA AFFECTING DOMINANT SIDE Spastic hemiplegia affecting dominant side | + + | Equinovarus deformity, acquired, right | + + | Pain in ankle joint increased by plantar flexion | + + | Muscle spasm of right lower extremity | + + documented in this encounter
--- OUTSIDE RECORDS SUMMARY | ~2020-06-26 | XMS | Encounter Summary ---
Demographics + + + | Address | [address] | | | [place] [address] | + + + | Home Phone | | + + + | Preferred Language | Unknown | + + + | Marital Status | | + + + | Evangelical Affiliation | Unknown | + + + | Race | White | + + + | Ethnic Group | Not or | + + + Author + + + | Author | [facility] | | | and [place] | + + + | Organization | [facility] | | | [...] [place] | | | | | [address] | | + + + + + Care Team Providers + +------+ + | Care Dry Curer Name | Role | Phone | + +------+ + PCP | Unavailable | + +------+ + Encounter Details +--------+ + + + + | Date | Type | Department | Care Team | Description | +--------+ + + + + | 07/21/ | [facility] | [facility] | | | | 2008 | Encounter | MED CTR XRAY [address] | | | | | | [place] | | | | | | [place] [address] | | | | | | [phone] | | | +--------+ + + + [...]
--- OUTSIDE RECORDS SUMMARY | ~2020-06-26 | XMS | Encounter Summary ---
Demographics + + + | Address | [address] | | | [place] [address] | + + + | Home Phone | | + + + | Preferred Language | Unknown | + + + | Marital Status | | + + + | Adventism Affiliation | Unknown | + + + | Race | White | + + + | Ethnic Group | Not or | + + + Author + + + | Author | [facility] | | | and [place] | + + + | Organization | [facility] | | | and [...] [place] | | | | | [address] | | + + + + + Care Team Providers + +------+ + | Care Biosolids Management Technician Name | Role | Phone | + +------+ + | Almas Licea MD | PCP | | + +------+ + Reason for Visit + +--------+ + | Reason | Onset | Comments | | | Date | | + +--------+ + | Appointment Question | 03/13/ | | | | 2016 | | + +--------+ + Encounter Details +--------+ + + + + | Date | Type | Department | Care Team | Description | +--------+ + + + + | 03/13/ | Telephone | [facility] [place] | William Garcia MD | Appointment Question | | 2017 | | NEUROSURGERY [address] | [address] | | | | | [facility] [address] | [place] [address] | | | | | [place] | [phone] | | | | | [address] | | | | | | [phone] | | | +--------+ + + + [...] + + documented as of this encounter Miscellaneous Notes Telephone Encounter - Maritza Almendarez - 06/04/2017 2:56 PM PDTA second encounter was op ened after this one. Closing due to duplication.Electronically signed by Maritza valdez 06/04/2017 2:57 PM PDTTelephone Encounter - Maritza Almendarez - 03/13/2017 4:07 PM PDTP atient called in stating that he has been going to physical therapy for two months and has n ot had any relief of his symptoms. Patient would like to know what he needs to do now. He be lieves that his physical therapist would also like to know if they are to continue treatment s. Please call the patient at [phone].Electronically signed by Maritza Almendarez at 03/13 4:11 PM PDTdocumented in this encounter Plan of Treatment Not on filedocumented as of this encounter Visit Diagnoses Not on filedocumented in this encounter"
--- OUTSIDE RECORDS SUMMARY | ~2020-06-26 | XMS | Encounter Summary ---
Demographics + + + | Address | [address] | | | [place] [address] | + + + | Home Phone | | + + + | Preferred Language | Unknown | + + + | Marital Status | | + + + | Anabaptist Affiliation | Unknown | + + + | Race | White | + + + | Ethnic Group | Not or | + + + Author + + + | Author | [facility] | | | and [place] | + + + | Organization | [facility] | | [...] [place] | | | | | [address] | | + + + + + Care Team Providers + +------+ + | Care Metaphysician Name | Role | Phone | + +------+ + | Almas Licea MD | PCP | | + +------+ + Reason for Visit +--------+--------+ + | Reason | Onset | Comments | | | Date | | +--------+--------+ + | Other | 07/22/ | | | | 2015 | | +--------+--------+ + Encounter Details +--------+ + + + + | Date | Type | Department | Care Team | Description | +--------+ + + + + | 07/22/ | Telephone | [facility] [place] | William Garcia MD | Other | | 2016 | | NEUROSURGERY [address] | [address] | | | | | [facility] [address] | [place] [address] | | | | | [place] | [phone] | | | | | [address] | | | | | | [phone] | | | +--------+ + + + [...] | Yes | 0 Standard drinks | 14.0 | | | | or equivalent 14 | | | | | Glasses of wine | | | + + +---------+ + [...] this encounter Miscellaneous Notes Telephone Encounter - Christine Butts RN - 07/22/2016 3:41 PM PSTProcedure: L2-3, L3-4 La teral Anterior Interbody Fusion, L4-5 Transforaminal Lumbar Interbody Fusion, Posterior Inst rumentation at L2-3, L3-4, L4-5 Date of Surgery: 07/03/16 1. How are you feeling-if pain where (legs/surgical site)? Right leg sharp, shooting and bu rning pain 2. Weakness/Numbness (New onset)? No 3.Taking pain meds (Name/Dosage)? Oxy 5mg 1-2 tabs BID 4.Loss of Bowel or Bladder (When/Chronic)? No Constipation? Yes, but has resolved 5.Ambulating (How often)? Ambulating every couple of hours. Reminded patient to increase wa lking. SURGICAL ISSUES 1.Steri-strips/outer bandages have been removed. Farrah/sutures that need to be removed n o. Operative note reviewed yes. 2.Appearance of the site? Clean and dry. Is there drainage from the site? no. 3.Do you have a fever? no. 4.Follow up appointments? 07/29/16 @ 1530. Reminded patient of xrays prior to appointment. Staple/suture removal nurse visit? N/A 5.What could we have done to make your visit better? Nothing 6. Has preoperative pain improved? Not yet *patient advised that he does not have to see his PCP before coming in for his appt 6. elephone Encounter - Christine Butts RN - 07/22/2016 3:40 PM PSTLeft voicemail for call return/post op call. E lectronically signed by Christine Butts RN at 07/22/2016 3:40 PM PSTTelephone Encounter - Florence Vences - 07/22/2016 11:27 AM PSTPatient called he had surgery last Friday and was advised to follow up with pcp. Patient won't be able to see pcp till after he see's Isidro rehman on the . Patient wants to make sure that will be okay. Please follow up with patientEl ectronically signed by Florence Talavera at 07/22/2016 11:30 AM PSTdocumented in this encou nter Plan of Treatment Not on filedocumented as of this encounter Visit Diagnoses Not on filedocumented in this encounter"
--- OUTSIDE RECORDS SUMMARY | ~2020-06-26 | XMS | Encounter Summary ---
Demographics + + + | Address | [address] | | | [place] [address] | + + + | Home Phone | | + + + | Preferred Language | Unknown | + + + | Marital Status | | + + + | Nondenominational Affiliation | Unknown | + + + | Race | White | + + + | Ethnic Group | Not or | + + + Author + + + | Author | [facility] | | | and [place] | + + + | Organization | [facility] | | | and [...] [place] | | | | | [address] | | + + + + + Care Team Providers + +------+ + | Care Scrub Technician Name | Role | Phone | + +------+ + | Harris Sauceda MD | PCP | | + +------+ + Encounter Details +--------+ + + + + | Date | Type | Department | Care Team | Description | +--------+ + + + + | 03/22/ | Hospital | [facility] | Harris Sauceda V, | Unilateral inguinal | | 2019 | Encounter | [facility] | MD [address] | hernia without | | | | [address] [place] | [address] [place], [place] | obstruction or | | | | [place], [place] | [address] | gangrene, recurrence | | | | [address] | | not specified | | | | [phone] | | | +--------+ + + + [...] + + documented as of this encounter Medications at Time of Discharge + + + +---------+ + + | Medication | Sig | Dispensed | Refills | Start | End Date | | | | | | Date | | + + + +---------+ + + | acetaminophen | Take 650 mg by mouth | | 0 | | | | (TYLENOL) 325 mg | every 4 hours as | | | | | | tablet | needed for Pain. | | | | | + + + +---------+ + + | chlorthalidone 25 | Take 25 mg by mouth | | 0 | | | | mg tablet | Daily. | | | | | + + + +---------+ + + | citalopram | Take 40 mg by mouth | | 0 | | | | (CELEXA) 40 mg | Daily. | | | | | | tablet | | | | | | + + + +---------+ + + | diclofenac | Apply 1 g topically | | 0 | | | | (VOLTAREN) 1% GEL | 2 times daily. | | | | | + + + +---------+ + + | finasteride | Take 5 mg by mouth | | 0 | | | | (PROSCAR) 5 mg | Daily. | | | | | | tablet | | | | | | + + + +---------+ + + | gabapentin | Take 300 mg by mouth | | 0 | | | | (NEURONTIN) 300 mg | 2 times daily. | | | | | | capsule | | | | | | + + + +---------+ + + | | Take 15 mLs by mouth | 240 mL | 0 | 05/19/20 | | | HYDROcodone-acetamin | 4 times daily as | | | 19 | | | ophen (HYCET) | needed for Pain. | | | | | | 7.5-325 mg/15 mL | | | | | | | liquid | | | | | | + + + +---------+ + + | omeprazole | Take 20 mg by mouth | | 0 | | | | (PRILOSEC) 20 mg | Daily. | | | | | | capsule | | | | | | + + + +---------+ + + | aspirin 325 mg | Take 1 tablet by | 30 | 0 | 05/19/20 | | | tablet | mouth Daily. | tablet | | 19 | 9 | + + + +---------+ + + | aspirin 325 mg | Take 325 mg by mouth | | 0 | 07/22/20 | | | tablet | nightly. | | | 11 | 9 | + + + +---------+ + + | atorvaSTATin | Take 40 mg by mouth | | 0 | | | | (LIPITOR) 40 mg | nightly. | | | | 9 | | tablet | | | | | | + + + +---------+ + + | | Take 15 mLs by mouth | | 0 | | | | HYDROcodone-acetamin | 4 times daily as | | | | 9 | | ophen (HYCET) | needed for Pain. | | | | | | 7.5-325 mg/15 mL | | | | | | | liquid | | | | | | + + + +---------+ + + | losartan (COZAAR) | Take 100 mg by mouth | | 0 | 04/22/20 | | | 100 MG tablet | Daily. | | | 17 | 9 | + + + +---------+ + + | mycophenolate | as directed | | 0 | 05/29/20 | | | (CELLCEPT) 500 MG | | | | 12 | 9 | | tablet | | | | | | + + + +---------+ + + | oxyCODONE | Take 5 mg by mouth | | 0 | | | | (ROXICODONE) 5 mg | every 4 hours as | | | | 9 | | tablet | needed for Pain. | | | | | + + + +---------+ + + | potassium chloride | Take 10 mEq by mouth | | 0 | | | | (KLOR-CON) 10 mEq | Daily. | | | | 9 | | CR tablet | | | | | | + + + +---------+ + + | pramipexole | Take 0.25 mg by | | 0 | | | | (MIRAPEX) 0.25 mg | mouth nightly. | | | | 9 | | tablet | | | | | | + + + +---------+ + + | warfarin | Take 5 mg by mouth | | 0 | | | | (COUMADIN) 5 mg | Daily. Or as | | | | 9 | | tablet | directed | | | | | + + + +---------+ + + documented as of this encounter Plan of Treatment + +---------+--------+ + + | Name | Type | Priori | Associated Diagnoses | Date/Time | | | | ty | | | + +---------+--------+ + + | US Groin Left | Imaging | Routin | Unilateral | 03/22/2019 11:11 AM | | | | e | inguinal hernia | PDT | | | | | without obstruction | | | | | | or gangrene, | | | | | | recurrence not | | | | | | specified | | + +---------+--------+ + + + +---------+--------+ + + | Name | Type | Priori | Associated Diagnoses | Order Schedule | | | | ty | | | + +---------+--------+ + + | US Groin Left | Imaging | Routin | Unilateral | 1 Occurrences | | | | e | inguinal hernia | starting 03/22/2019 | | | | | without obstruction | until 03/22/2019 | | | | | or gangrene, | | | | | | recurrence not | | | | | | specified | | + +---------+--------+ + + documented as of this encounter Visit Diagnoses + + | Diagnosis | + + | Unilateral inguinal hernia without obstruction or gangrene, recurrence not specified | + + documented in this encounter"
--- OUTSIDE RECORDS SUMMARY | ~2020-06-26 | XMS | Encounter Summary ---
Demographics + + + | Address | [address] | | | [place] [address] | + + + | Home Phone | | + + + | Preferred Language | Unknown | + + + | Marital Status | | + + + | Nondenominational Affiliation | Unknown | + + + | Race | White | + + + | Ethnic Group | Not or | + + + Author + + + | Author | [facility] | | | and [place] | + + + | Organization | [facility] | | | [...] [place] | | | | | [address] | | + + + + + Care Team Providers + +------+ + | Care Credentialer Name | Role | Phone | + +------+ + | Harris Sauceda MD | PCP | | + +------+ + Encounter Details +--------+ + + + + | Date | Type | Department | Care Team | Description | +--------+ + + + + | 02/05/ | Orders Only | [facility] | | | [facility] | [facility] | [address] | | | | | [facility] | [address], | | | | | [address] | [place] [address] | | | | | [place], [place] | [phone] | | | | | [address] | | | | | | [phone] | | | +--------+ + + + [...] | + +--------+ + + + | TRELL PREP | STAT | 02/05/2011 | | Results for this | | | | 2:22 PM | | procedure are in the | | | | PDT | | results section. | + +--------+ + + + documented in this encounter Results TRELL Prep (02/05/2011 2:22 PM PDT) + + | Specimen | + + | | + + + + + | Narrative | Performed At | + + + | Specimen Description THUMB LEFT | EXTERNAL LAB | | Testing performed [place] [facility] [place] | | [facility];[place] [address] [facility] PRE[facility] | | | NO YEAST OR FUNGAL ELEMENTS SEEN | | | Testing performed at [facility], [address] [facility] | | | [place] [address] REPORT STATUS | | | 02/06/2011 FINAL | | + + + + +---------+ + + | Performing | Address | City/State/Zipcode | Phone Number | | Organization | | | | + +---------+ + + | EXTERNAL LAB | | | | + +---------+ + + documented in this encounter Visit Diagnoses Not on filedocumented in this encounter"
--- OUTSIDE RECORDS SUMMARY | ~2020-06-26 | XMS | Encounter Summary ---
Demographics + + + | Address | [address] | | | [place] [address] | + + + | Home Phone | | + + + | Preferred Language | Unknown | + + + | Marital Status | | + + + | Adventism Affiliation | Unknown | + + + | Race | White | + + + | Ethnic Group | Not or | + + + Author + + + | Author | [facility] | | | and [place] | + + + | Organization | [facility] | | | and [place] | + + + | Address | Unknown | + + + | Phone | Unavailable | + + + Support + + + + + | Name | Relationship | Address | Phone | + + + + + | Delilah Chuck Ash | ECON | [address] | | | | | [place] | | | | | [address] | | + + + + + Care Team Providers + +------+ + | Care Regeneration Operator Name | Role | Phone | + +------+ + | Almas Licea MD | PCP | | + +------+ + Reason for Visit Auth/Cert +--------+--------+ + + + + | Status | Reason | Specialty | Diagnoses / | Referred By | Referred To | | | | | Procedures | Contact | Contact | +--------+--------+ + + + + | | | | Diagnoses | | | | | | | Postural | | | | | | | kyphosis of | | | | | | | thoracolumba | | | | | | | r region | | | | | | | Postural | | | | | | | kyphosis of | | | | | | | thoracolumba | | | | | | | r region | | | | | | | [M40.05] | | | | | | | Procedures | | | | | | | PA SPINE | | | | | | | FUSN,POST | | | | | | | TECH,EA | | | | | | | ADDNL SGMT | | | | | | | FUSION | | | | | | | LUMBAR W/ | | | | | | | LATERAL | | | | | | | APPROACH | | | | | | | (XLIF) | | | +--------+--------+ + + + + Encounter Details +--------+ + + + + | Date | Type | Department | Care Team | Description | +--------+ + + + + | 07/03/ | Hospital | [facility] | William Schmidt MD | Gait abnormality | | 2016 - | Encounter | [facility] | [address] | (Primary Dx) | | | | [address] | [place] [address] | | | 07/06/ | | [place] [address] | [phone] | | | 2015 | | [phone] | | | +--------+ + + + [...] + + + | Blood Pressure | 162/80 | 07/06/2016 8:00 AM | | | | | PDT | | + + + + + | Pulse | 82 | 07/06/2016 8:00 AM | | | | | PDT | | + + + + + | Temperature | 36.7 C (98.1 F) | 07/06/2016 8:00 AM | | | | | PDT | | + + + + + | Respiratory Rate | 18 | 07/06/2016 8:00 AM | | | | | PDT | | + + + + + | Oxygen Saturation | 95% | 07/06/2016 8:00 AM | | | | | PDT | | + + + + + | Inhaled Oxygen | - | - | | | Concentration | | | | + + + + + | Weight | 65.8 kg (145 lb) | 07/03/2016 8:00 AM | | | | | PDT | | + + + + + | Height | 167.6 cm (5' 6") | 07/03/2016 8:00 AM | | | | | PDT | | + + + + + | Body Mass Index | 23.4 | 07/03/2016 8:00 AM | | | | | PDT | [...] + + documented as of this encounter Discharge Summaries William Schmidt MD - 07/06/2016 9:33 AM PDTFormatting of this note might be different from t he original. [facility] - NEUROSCIENCE CENTER DISCHARGE SUMMARY Patient Name: Kevin Aleman Sr. 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] Lumbar spondylolisthesis Lumbar degenerative disc disease Lumbar facet arthropathy Lumbar foraminal stenosis Lumbar radiculopathy Secondary Discharge Dx(s): Patient Active Problem List Diagnosis FOOT DEFORMITY, ACQUIRED PAIN IN LIMB SPASTIC HEMIPLEGIA AFFECTING UNSPECIFIED SIDE SPASTIC HEMIPLEGIA AFFECTING DOMINANT SIDE HEMIPL AFFECT UNSPEC SIDE DUE CEREBRVASC DISEASE MUSCLE FASCICULATIONS CEREBRAL THROMBOSIS, WITH INFARCTION SPASM OF MUSCLE Back pain of thoracolumbar region - left flank region Facet arthritis of lumbar region Trochanteric bursitis of right hip Spondylolisthesis, lumbar region Lumbar radiculopathy DDD (degenerative disc disease), lumbar Lumbar facet arthropathy Neurogenic claudication Myelopathy DDD (degenerative disc disease), cervical Postural kyphosis of lumbar region Stroke High cholesterol GERD (gastroesophageal reflux disease) Hypertension Depression Chronic anticoagulation Hypoxia Acute asthma flare Dysphagia as late effect of cerebrovascular disease Hypokalemia Achalasia Hypotension due to medication Procedures 1. Minimally invasive lumbar fusion via anterior and posterior approaches 2. Anterior lumbar interbody arthrodesis L2-3, L3-4 and L4-5 3. Posterolateral lumbar arthrodesis L2-3, L3-4, L4-5 4. Posterior spinal instrumentation L2-L5 with use of Precept 5. Placement of PEEK interbody spacer L2-3, L3-4, L4-5 6. Microsurgical technique with use of operating microscope 7. Intraoperative fluoroscopy for spinal instrumentation Hospital Course: The patient presented with severe spinal disease and had a L2-L5 surgery via anterior and p osterior approaches. His surgery was uncomplicated. After surgery, he was mobilized. He w as transferred to rehab to assist with his care and mobilization given his prior history of CVA and chronic weakness. Condition on Discharge: Stable Discharge Medications: Resume NOV Current Discharge Medication List UNREVIEWED medications Medication Dose Last Dose Taken; aspirin 325 mg tablet atorvaSTATin (LIPITOR) 40 mg tablet 40 mg citalopram (CELEXA) 40 mg tablet 40 mg finasteride (PROSCAR) 5 mg tablet 5 mg mycophenolate (CELLCEPT) 500 MG tablet omeprazole ([facility] OMEPRAZOLE) 20 mg [facility] Follow-Up: 3-4 weeks. documented in this encou nter Medications at Time of Discharge + + [...] + + | aspirin 325 mg | | | 0 | 07/22/20 | | | tablet | | | | 11 | 9 | [...] mg | Daily. | | | | 9 | | tablet | | | | | | + + + +---------+ + + | finasteride | Take 5 mg by mouth | | 0 | | | | (PROSCAR) 5 mg | Daily. | | | | 9 | | tablet | | | | | | + + + +---------+ + + | losartan (COZAAR) | as directed | | 0 | 05/29/20 | | | 50 mg tablet | | | | 12 | 6 | + + + +---------+ + + | mycophenolate | as directed | | 0 | 05/29/20 | | | (CELLCEPT) 500 MG | | | | 12 | 9 | | tablet | | | | | | + + + +---------+ + + | omeprazole ([facility] | as directed | | 0 | 05/29/20 | | | OMEPRAZOLE) 20 mg | | | | 12 | 7 | | [facility] | | | | | | + + + +---------+ + + | warfarin | Take 27.5 mg by | | 0 | | | | (COUMADIN) 5 mg | mouth Daily. | | | | 6 | | tablet | | | | | | + + + +---------+ + + documented as of this encounter Progress Notes Matt Sandoval PA-C - 07/06/2016 8:04 AM PDTFormatting of this note might be differ ent from the original. [facility] PROGRESS NOTE Pt. Name/Age/: Kevin Aleman Sr. 70 y.o. 1945 Med. Record Number: [id number] Date of admission: 07/03/2016 Subjective: The patient chart and medications were reviewed in detail and the patient was s een and examined. The patient pstient is doing OK. Slow to mobilize. Planning rehab when appropriate. Patricia ent takes coumadin . Passing flatus. No BM yet Objective: Temp: 37.9 C (100.2 F) BP: 156/86 mmHg Pulse: 87 Resp: 18 SpO2: 93 % on Min/Max Temp past 24 hours:Temp Av.4 C (99.4 F) Min: 37.1 C (98.8 F) Max: 3 7.9 C (100.2 F) Intake/Output Summary (Last 24 hours) at 07/06/16 0804 Last data filed at 07/06/16 0553 Gross per 24 hour Intake 1960 ml Output 1200 ml Net 760 ml Wt. Admission: Weight: 65.772 kg (145 lb) Wt. Current: Weight: 65.772 kg (145 lb) Exam: General: A&O Cardiovascular: RRR Respiratory: clear Abdomen: benign Extremities: No edema Neurological: stable Diagnostic studies: Available data and images were reviewed personally. See reports. Signi ficant results and findings are addressed here or in the Assessment and Plan. Assessment and Plan: Sp lumbar fusion Patient Active Problem List Diagnosis FOOT DEFORMITY, ACQUIRED PAIN IN LIMB SPASTIC HEMIPLEGIA AFFECTING UNSPECIFIED SIDE SPASTIC HEMIPLEGIA AFFECTING DOMINANT SIDE HEMIPL AFFECT UNSPEC SIDE DUE CEREBRVASC DISEASE MUSCLE FASCICULATIONS CEREBRAL THROMBOSIS, WITH INFARCTION SPASM OF MUSCLE Back pain of thoracolumbar region - left flank region Facet arthritis of lumbar region Trochanteric bursitis of right hip Spondylolisthesis, lumbar region Lumbar radiculopathy DDD (degenerative disc disease), lumbar Lumbar facet arthropathy Neurogenic claudication Myelopathy DDD (degenerative disc disease), cervical Postural kyphosis of lumbar region Stroke High cholesterol GERD (gastroesophageal reflux disease) Hypertension Depression Chronic anticoagulation Plan. Continue with therapy. Rehab when appropriate. May resume coumadin. Per Dr Schmidt , pharmacy consult to manage coumadin/lovenox. Plan for low dose Lovenox bridge 40 mg daily u ntil INR theraputic Electronically signed by: Matt Sandoval, 07/06/2016 8:04 [facility] Linda Alexander on, Kyle PinzonD - 07/06/2016 7:51 AM PDT ===View-only below this line=== >> KATELYNN DOMINGUEZ 07/06/2016 07:47 WARFARIN PER PHARMACY PROTOCOL: Subjective/Objective: Kevin Aleman Gomez is a 70 y.o. male admitted on @ADMITDT@ for stroke and is receiving w arfarin. Patient has a past medical history of GERD (gastroesophageal reflux disease); Depr ession; High cholesterol; Stroke (HCC); Hypertension; Back pain of thoracolumbar region (); Facet arthritis of lumbar region (HCC) (02/01/2015); Trochanteric bursitis of right hip (02/01/2015); Poor circulation; and Adverse effect of anesthesia. Goal INR: 2-3 []Initiation [x]chronic Home regimen:22.5mg/week Also on enoxaparin 40mg SC daily. Was taking coumadin prior to surgery which has been temp orarily held, Recent Labs Lab 07/03/16 0912 INR 1.03 Date 07/03 Hgb - Hct - Platelets - INR 1.03 Warfarin Dose - Assessment: The INR is below the target range of 2-3 for stroke. Plan: 1. Warfarin 2.5 mg po dailyreinitiated starting 07/06/2016 2. Medication profile reviewed for potential drug-drug interactions 3. Labs in am: Hgb, Hct, INR 4. Warfarin education received No. 5. Pharmacist to follow daily Warfarin Dosing Nomogram Warfarin Dosing Expectations Per P&T-approved Electronically signed by: Katelynn Perez PHARMD 07/06/2016 7:33Electronicall y signed by Katelynn Perez, KyleD at 07/06/2016 7:53 AM Daniel OquendonRADHA - 07/05/2016 7:33 AM PDTFormatting of this note might be different from the orig inal. [facility] NEUROSURGERY PROGRESS NOTE Pt. Name/Age/: Kevin Aleman Sr. 70 y.o. 1945 Post operative day 2 SUBJECTIVE: Pt is doing okay this AM. He complains of pain over the incisions and bilateral hips. He has been standing with therapy. Pt wants to go home but realizes he just had major back surgery and needs to recover more. Pt confused on place and time. Having some trouble voiding, this existed prior to surgery. Passing flatus. OBJECTIVE: Patient Vitals for the past 24 hrs: BP Temp Temp src Pulse Resp SpO2 07/05/16 0100 158/78 mmHg 37.9 C (100.2 F) Oral 95 18 92 % 07/04/16 2030 - - - 96 18 94 % 07/04/16 1955 114/72 mmHg 37.4 C (99.3 F) Oral 97 18 93 % 07/04/16 1648 - - - 90 20 93 % 07/04/16 1339 112/67 mmHg 37.8 C (100.1 F) Oral 86 20 93 % 07/04/16 1150 - - - 90 20 94 % 07/04/16 0955 - - - 88 20 (!) 84 % 07/04/16 0935 - - - 90 20 95 % 07/04/16 0800 133/70 mmHg 37.4 C (99.3 F) Oral 93 20 93 % I/O last 24 Hours: In: 2151 [P.O.:240; I.V.:1911] Out: 1040 [Urine:1040] Min/Max Temp past 24 hours:Temp Av.6 C (99.7 F) Min: 37.4 C (99.3 F) Max: 3 7.9 C (100.2 F) General: Pt alert and oriented, no acute distress. Confused on place/time. Dressing: Clean/Dry/Intact Neurological: abnormal 4/5 bilat hip flexion 5/5 bilat dorsiflexion 5/5 bilat plantarflexion Normal sensation bilat LE DRAIN OUTPUT: no drain LabsNo results found for this or any previous visit (from the past 24 hour(s)). ASSESSMENT: s/p L2-L5 fusion Plan: Pain control. D/c IV morphine. Pt should be taking po pain meds. Add Celexa 40mg daily. Pt was taking prior to admission. IP rehab Electronically signed by: Daniel Chandler, 07/05/2016 7:34 [facility] est, Matt Ramirez PA-C - 07/04/2016 7:54 AM PDTFormatting of this note might be different from the o riginal. [facility] PROGRESS NOTE Pt. Name/Age/: Kevin Aleman Sr. 70 y.o. 1945 Med. Record Number: [id number] Date of admission: 07/03/2016 Subjective: The patient chart and medications were reviewed in detail and the patient was s een and examined. The patient is doing ok post op. Needed straight cath. Pain is reasonably controlled. Objective: Temp: 36.7 C (98.1 F) BP: 127/70 mmHg Pulse: 77 Resp: 18 SpO2: 93 % on Min/Max Temp past 24 hours:Temp Av.4 C (97.5 F) Min: 35.8 C (96.4 F) Max: 3 6.9 C (98.4 F) Intake/Output Summary (Last 24 hours) at 07/04/16 0752 Last data filed at 07/04/16 0630 Gross per 24 hour Intake 2776 ml Output 604 ml Net 2172 ml Wt. Admission: Weight: 65.772 kg (145 lb) Wt. Current: Weight: 65.772 kg (145 lb) Exam: General: A&O Cardiovascular: RRR Respiratory: clear Abdomen: benign Extremities: No edema Neurological: Stable. Good LE strength Diagnostic studies: Available data and images were reviewed personally. See reports. Signi ficant results and findings are addressed here or in the Assessment and Plan. Assessment and Plan: Sp Patient Active Problem List Diagnosis FOOT DEFORMITY, ACQUIRED PAIN IN LIMB SPASTIC HEMIPLEGIA AFFECTING UNSPECIFIED SIDE SPASTIC HEMIPLEGIA AFFECTING DOMINANT SIDE HEMIPL AFFECT UNSPEC SIDE DUE CEREBRVASC DISEASE MUSCLE FASCICULATIONS CEREBRAL THROMBOSIS, WITH INFARCTION SPASM OF MUSCLE Back pain of thoracolumbar region - left flank region Facet arthritis of lumbar region Trochanteric bursitis of right hip Spondylolisthesis, lumbar region Lumbar radiculopathy DDD (degenerative disc disease), lumbar Lumbar facet arthropathy Neurogenic claudication Myelopathy DDD (degenerative disc disease), cervical Postural kyphosis of lumbar region Stroke High cholesterol GERD (gastroesophageal reflux disease) Hypertension Depression Chronic anticoagulation SP lumbar fusion: We will work with PT and OT. Monitor urination Will place rehab consul t. He has some support at home with his only Electronically signed by: Matt Sandoval, 07/04/2016 7:54 [facility] Nessa Fields RN - 06/21/2016 12:22 PM PDTPatient states he always feels anxious, worried & depressed. He relates it to seeing his dad go to a snf after a stroke and eventually the re. He has had a stroke himself and does not want to go to a snf. He would rather before that happens. He says he has been in touch with his PCP and takes Celexa; he is not sure if it helps. Encouraged to stay in touch with PCP and resources for help if he has thoughts of harming or killing himself. He states understanding. documented in this encounter H&P Notes William Schmidt MD - 07/03/2016 10:19 AM PDTProlegacy [facility]ICAL INTERIM HISTORY AND PHYSICAL UPDATE Pt. Name/Age/: Kevin Aleman Sr. 70 y.o. 1945 Date of admission: 07/03/2016 The current H&P was reviewed. The patient was reexamined. Re-evaluation of the patient con firms the necessity for the scheduled procedure. No change has occurred in the patient s c ondition since the H&P was completed less than 30 days ago. I expect this patient will be hospitalized for post-operative care of post-operative care o f an IP-only procedure and expect the post-hospital plan to be determined once additional in formation is obtained. VERIFICATION OF CONSENT (PARQ) The patient was counseled regarding the procedure, its indications, risks, potential compli cations and alternatives. Any questions were answered. Consent was obtained. Electronically signed by: William Schmidt MD 07/03/2016 10:19 [facility] est, AYAAN Scott - 06/21/2016 10:54 AM PDT Matt Sandoval PA-C [address] [facility], [address] [place] [address] FAX: NEUROSURGERY FOLLOW-UP CHIEF COMPLAINT: Chief Complaint Patient presents with Follow-up Preop HISTORY OF PRESENT ILLNESS: The patient is a 70 y.o. male with the complaint of back and r ight hip pain. The patient today returns accompanied by his . Patient has been previou sly seen by myself as well as Dr. schmidt regarding his ongoing symptoms. He has had no signifi cant changes in his back and leg symptoms. He continues on Coumadin for stroke prevention. He worked with the Coumadin clinic. He is playing to stop his Coumadin 7 days prior to his surgery. They have not used Lovenox bridging in the past. The patient states approximately 10 years ago he had a CVA which affected not only his sp eech but also his right leg. He underwent physical therapy and actually did fairly well. Donovan ayon has significant improvements of his dysfunction although he did remain having some weaknes s. Unfortunately over the last couple years he is noticing increasing problems again with r ight leg weakness. He is undergone physical therapy [...] returns today to discuss his surgical options. His had multiple questions today re garding the procedure as well as the postoperative recovery. All of this was discussed in d etail today with him The patient does not report any change [...] visit. ALLERGIES: Allergies Allergen Reactions Acetaminophen Itching Hydrocodone Severe itching SOCIAL HISTORY: The patient reports that he [...] no rheumatoid arthritis. PHYSICAL EXAMINATION: Blood pressure 138/83, pulse 89, resp. rate 16, height 1.676 m (5' 6"), weight 63.504 kg (1 40 lb). Body mass index is 22.61 kg/(m^2). GENERAL: Kevin Gutierrez [facility]. is in no acute distress with unlabored respirations. The ayaan spain does appear uncomfortable throughout the exam today. 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 Spondylolisthesis, lumbar region Yes Neurogenic claudication Lumbar radiculopathy Lumbar facet arthropathy (HCC) Facet arthritis of lumbar region (HCC) GENERAL DIAGNOSES: Past Medical History Diagnosis Date GERD (gastroesophageal reflux disease) Depression High cholesterol Stroke (HCC) Hypertension Back pain of thoracolumbar region 08/29/2012 Facet arthritis of lumbar region (HCC) 02/01/2015 Trochanteric bursitis of right hip 02/01/2015 Poor circulation PLAN: Kevin Aleman Sr. presented today, and it was a pleasure seeing this patient and assess ing his problems. Patient has had no significant changes in his health. His Coumadin is be ing addressed by his Coumadin clinic and he is playing to discontinue this without Lovenox b ridging. We discussed his surgery in detail today I have also asked him to bring his walker as well as his cane to aid in physical therapy's evaluation and treatments after surgery. We are playing to move forward with L2-L5 fusion with a combined anterior and lateral appro ach I reviewed the MRIs with him. He [...] improve the probability and rate of fusion. ELECTRONICALLY SIGNED BY: Matt Sandoval PA-C, 06/21/2016 11:02 documented in this encounter Consult Notes Eduard Young MD - 07/05/2016 4:24 PM PDTAssociated Order(s): IP CONSULT TO REHAB ( IRF) REHABILITATION MEDICINE CONSULTATION Patient Identification Kevin Aleman Sr. is a 70 y.o. male. 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 is a 70 y.o. 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 PM&R consultation was requeste d by Dr. William Schmidt MD to provide an opinion regarding Kevin Aleman Sr. rehabilitatio n needs. History of Present Illness: Mr. 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 Patient has a long history of hemiparesis and spasticity for which he was followed by Dr. Toshia lara. He reports that in the past year or so his spasticity seems to have increased resul ting in more difficulty ambulating and preforming self-care. He reports that he has had 8 f alls in the past six months, all of which occurred when his right foot became caught on the ground during swing phase. He utilizes a loftstrand crutch in the left hand when ambulating , and he reports the falls occurred despite using the crutch. He also has a right AFO but h e does not wear it due to his equinovarus ankle and hallux varus contractures. He was previ ously treated with serial casting in [place] which apparently resulted in significant im provement in his ROM but the contractures have reoccurred. In addition to these contracture s she also has RLE greater than RUE spasticity. He previously underwent botox chemodenervat ion by Dr. Dean which apparently improved his symptoms significantly but they have not been repeated for a few years. In reviewing his outpatient notes he also trialed low dose oral baclofen at night, which the patient does not recall, so its unclear if this helped signific antly. He never did TID dosing of the baclofen, nor has he tried tizanidine, dantrolene, or diazepam. Dr. Rivera was also following him for his chronic lower back pain and neurogenic claudicat ion. Conservative treatment with PT and lumbar facet steroid injections were trialed but di d not improve his pain significantly so he underwent the above surgery. Post-op he has done well with no severe complications. He did have some confusion on at [facility] on 07/04 but was redirectable. Review of Systems - Constitutional - denies fevers/chills, denies fatigue Eyes - denies diplopia, denies double vision ENT denies sore throat, denies swallowing difficulty Card - denies CP, denies palpitations Pulm - denies dyspnea, cough Abd - denies n/v, denies diarrhea/constipation Vascular - denies swelling, denies cold extremities Neuro - Please see the review of systems discussed above in the history of present illness. MSK - Please see the review of systems discussed above in the history of present illness. Endocrine - denies heat/cold intolerance Skin - denies open sores Psych - denies depression, anxiety - denies incontinence, dysuria, frequency All denies rash, denies pruritis Hematologic- denies easy bruising or bleeding, denies weight loss Past Medical History: Past Medical History Diagnosis Date GERD (gastroesophageal reflux disease) Depression High cholesterol Stroke (HCC) right sided weakness Hypertension Back pain of thoracolumbar region 08/29/2012 Facet arthritis of lumbar region (HCC) 02/01/2015 Trochanteric bursitis of right hip 02/01/2015 Poor circulation Adverse effect of anesthesia high blood pressure after stomach biopsy Past Surgical History: Past Surgical History Procedure Laterality Date Biopsy 2007 stomach 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 Skin cancer excision 2014 cancer spots Lumbar spine surgery Right 07/03/2016 Procedure: L2-3, L3-4 Lateral Anterior Interbody Fusion, L4-5 Transforaminal Lumbar Inter body Fusion, Posterior Instrumentation at L2-3, L3-4, L4-5; Surgeon: William Schmidt MD; Loca tion: [facility] Allergies: Allergies Allergen Reactions Hydrocodone Itching Severe itching Acetaminophen Itching Intolerance No active intolerances/contraindications Home Medications: Home Medications Medication Sig aspirin 325 mg tablet atorvaSTATin (LIPITOR) 40 [...] directed warfarin (COUMADIN) 5 mg tablet Take 27.5 mg by mouth Daily. Current Medications: Current facility-administered medications: albuterol 2.5 mg/3 mL nebulizer solution 2.5 mg, 2.5 mg, Nebulization, RT Q4H PRN, Anjel Young MD aluminum & magnesium hydroxide-simethicone (MAALOX PLUS REGULAR STRENGTH) 200-200-20 m g/5 mL suspension 30 mL, 30 mL, Oral, Q6H PRN, Matt Sandoval PA-C atorvaSTATin (LIPITOR) tablet 40 mg, 40 mg, Oral, Nightly, Matt Sandoval PA-C, 40 mg at 07/04/16 2025 bisacodyl (DULCOLAX) suppository 10 mg, 10 mg, Rectal, Daily PRN, Matt Sandoval PA-C calcium carbonate (TUMS) chewable tablet 1,000 mg, 1,000 mg, Oral, Q2H PRN, Matt Sandoval PA-C, 1,000 mg at 07/05/16 0250 citalopram (celeXA) tablet 40 mg, 40 mg, Oral, Daily, Daniel Chandler PA-C, 40 m g at 07/05/16 0812 cyclobenzaprine (FLEXERIL) tablet 10 mg, 10 mg, Oral, Q8H PRN, AYAAN Qiu, 10 mg at 07/04/16 1525 diphenhydrAMINE (BENADRYL) injection 12.5 mg, 12.5 mg, Intravenous, Q4H PRN OR dip henhydrAMINE (BENADRYL) tablet 25 mg, 25 mg, Oral, Q4H PRN, 25 mg at 07/04/16 0337 OR di phenhydrAMINE (BENADRYL) 12.5 mg/5 mL liquid 25 mg, 25 mg, Oral, Q4H PRN, Matt valdez PA-C docusate sodium (COLACE) capsule 100 mg, 100 mg, Oral, BID PRN, Sp Qiu A-C, 100 mg at 07/05/16 0812 enalaprilat (VASOTEC) injection 1.25 mg, 1.25 mg, Intravenous, Q6H PRN, Matt Sandoval PA-C finasteride (PROSCAR) tablet 5 mg, 5 mg, Oral, Daily, Matt Sandoval PA-C, 5 mg at 07/05/16 0812 labetalol (TRANDATE) 5 mg/mL injection 10 mg, 10 mg, Intravenous, Q1H PRN, Matt Sandoval PA-C lactated ringers (LR) infusion, , Intravenous, Continuous, William Schmidt MD lactulose liquid 30 mL, 30 mL, Oral, Daily PRN, Matt Sandoval PA-C losartan (COZAAR) tablet 50 mg, 50 mg, Oral, Daily, Matt Sandoval PA-C, 50 mg a t 07/05/16 0812 magnesium hydroxide (MILK OF MAGNESIA) 400 mg/5 mL suspension 30 mL, 30 mL, Oral, Nigh tly PRN, Matt Sandoval PA-C menthol (HALLS COUGH DROP) lozenge 1 lozenge, 1 lozenge, Buccal, Q2H PRN, Matt Sandoval PA-C metoclopramide (REGLAN) 5 mg/mL injection 10 mg, 10 mg, Intravenous, Q4H PRN, Matt Sandoval PA-C metoclopramide (REGLAN) tablet 10 mg, 10 mg, Oral, Q4H PRN, Matt Sandoval PA-C mycophenolate (CELLCEPT) capsule 500 mg, 500 mg, Oral, QAM, Matt Sandoval PA-C, 500 mg at 07/05/16 0812 ondansetron (ZOFRAN ODT) disintegrating tablet 4 mg, 4 mg, Oral, Q6H PRN, Matt Sandoval PA-C ondansetron (ZOFRAN) injection 4 mg, 4 mg, Intravenous, Q6H PRN, Matt Sandoval PA-C oxyCODONE (ROXICODONE) tablet 5-20 mg, 5-20 mg, Oral, Q4H PRN, AYAAN Qiu, 5 mg at 07/05/16 1551 pantoprazole (PROTONIX) DR tablet 40 mg, 40 mg, Oral, QAM AC, William Schmidt MD, 40 mg a t 07/05/16 0631 phenol (CHLORASEPTIC) spray 1-2 spray, 1-2 spray, Mouth/Throat, Q3H PRN, Matt Sandoval PA-C polyethylene glycol (MIRALAX) powder 17 g, 17 g, Oral, Daily PRN, Matt Sandoval PA-C prochlorperazine (COMPAZINE) tablet 5 mg, 5 mg, Oral, Q6H PRN, AYAAN Qiu senna (SENOKOT) tablet 8.6 mg, 8.6 mg, Oral, BID PRN, Matt Sandoval PA-C, 8.6 m g at 07/05/16 0812 sodium chloride 0.9% (NS) infusion, , Intravenous, Continuous, AYAAN Qiu, Last Rate: 100 mL/hr at 07/05/16 0713 Social History: Social History Social History Marital Status: Spouse Name: N/A Number of Children: 3 Years of Education: N/A Occupational History RETIRED Social History Main Topics Smoking status: Former Smoker -- 1.00 packs/day for 30 years Types: Cigarettes Start date: 09/15/1971 Quit date: 09/15/2001 Smokeless tobacco: Never Used Alcohol Use: 8.4 oz/week 0 Standard drinks or equivalent, 14 Glasses of wine per week Drug Use: No Sexual Activity: No Other Topics Concern Not on file Social History Narrative Patient lives with his in a single floor home with 2 NILE. His provides intermitt ent supervision at home in [place] Family History: Family History Problem Relation Age of Onset Stroke Father Cancer Father Alcohol abuse Father Hypertension Mother Stroke Mother Functional History: Prior function: Was previously modified independent with mobility using a loft-strand crutc h and reports he was Mod I ADLs/IADLs, swallow, bowel and bladder Current function: ADLs: Bathing Mod A 2 person assist, lower body dress Max A, upper body hygiene cues Mobility: gait Mod A 2 person assist using FWW. Transfers 2 person Min A. Bed CGA Precautions: C-brace Physical Exam: BP 174/84 mmHg | Pulse 83 | Temp(Src) 37.6 C (99.7 F) (Oral) | Resp 18 | Ht 1.676 m (5' 6") | Wt 65.772 kg (145 lb) | BMI 23.41 kg/m2 | SpO2 94% Body mass index is 23.41 kg/(m^2). GEN: Normally developed, resting in bed, NAD PSYCH: Appropriate, pleasant, cooperative; normal mood, affect and thought content HEENT: NCAT, PERRL, anicteric sclera Neck: Supple with no LAD RESP: Breathing comfortably, lungs CTAB CV: Heart RRR, no m/r/g, no LE edema, DP and PT pulses symmetric, extremities warm ABD: +BS, soft, NTND : Rogers in place draining clear yellow urine SKIN: no rashes or skin breakdown noted Neurologic Exam: Cognitive exam: Oriented to: Self Name of [facility] [place] Month Year. Does not remember meeting with me yest erday Registration: Able to repeat 3 words after 1 trial Visuospatial: Able to copy cube accurately Visuoconstructional: Able to draw clock [place] All numbers present and in correct quadrants Able to draw hands for 11:40 Digit span: _Able to Able to repeat 3 digits in backward order Sustained attention: 100 93 87 80 73 Delayed recall: 2 of 3 words after 5 minutes. Using first letter, category cue, able to rec all 0 more words Repetition: Intact Direction following: Able to follow 3 step commands. Abstraction: Able to explain 2 of 2 similarities. Cranial nerves: CNI: not tested CNII: no visual field deficits detected, afferent pupil response to light intact CNIII, IV, : PERRL, EOMI CNV: intact sensation in all three divisions bilaterally, motor function intact CNVII: right facial droop CNVIII: gross hearing intact CN IX and X: no hoarseness appreciated, uvula midline CN XI: symmetric shoulder shrug CN XII: tongue protrudes slightly to right Motor function: Tone: severe spasticity in RLE MAS 4 at knees. MAS 1+ at elbow. Contracture of right knee to 10 degrees Pronator Drift: No pronator drift bilaterally Power: MMT 0-5 scoring: R, L SAb EF EE WE WF FF Pili Right 3+ 3+ 4- 4- 4- 4- 4- Left 5 5 5 5 5 5 5 HF HE KF KE DF PF GTE Right 2 2 3- 3- 2 2 2 Left 5 5 5 5 5 5 5 Reflexes: Bic Tri BrachioRad Patella Achilles R 1+ 1+ 1+ 1+ 1+ L 3+ 3+ 3+ 3+ 3+ Babinski: + on right Lovelace's: absent bilaterally Sensory function: Light touch, pin-prick: intact in C4- T1, L2-S2 Graphesthesia: intact bilaterally Double tactile stimulation: No pravin-neglect Coordination: Finger-to- nose test: limited due to arm weakness Sitting Balance: intact Rapid alternating movements: dysdiadochokinesis on right Tremor: none Labs: No results found for this or any previous visit (from the past 48 hour(s)). Imaging: Recent Results (from the past 360 hour(s)) XR Chest PA and Lateral Narrative EXAM: XR CHEST PA AND LATERAL HISTORY: preoperative clearance TECHNIQUE: Upright PA and Lateral Chest COMPARISON: None. FINDINGS: Heart is normal size. The aorta is mildly tortuous with atherosclerotic calcifications. Mediastinal and hilar contours are within normal limits. The lungs are clear. No pleural effusion. No pneumothorax. No acute osseous abnormality. IMPRESSION - No acute cardiopulmonary abnormality. CRITICAL VALUE: No. Dictated and Signed by: Alonzo Davey MD Electronically signed: 06/21/2016 12:24 PM FL C-Arm Stats No Charge Narrative No Radiologist interpretation, please see Chart Review. XR Lumbar Spine 2 or 3 Vw Narrative EXAM:XR LUMBAR SPINE 2 OR 3 VW CLINICAL HISTORY: post op COMPARISON: Preoperative study dated September 25, 2015 FINDINGS: Frontal and lateral views of the lumbar spine. Posterior and interbody fusion changes are present from L2 through L5. The hardware is intact. In place interbody grafts improving disc spacing and spinal alignment. Mild subsidence of the L5 grafts into the superior endplate. Hyperattenuating material along the transpedicular screws at L5 may represent methylmethacrylate. Expected operative changes in the soft tissues. IMPRESSION - Interval posterior and interbody fusion changes at L2-L5. Dictated and Signed by: Saji Waldron MD Electronically signed: 07/03/2016 4:45 PM Assessment: Mr. 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 In speaking to the patient he was essentially failing at home with multiple falls and on questing also struggling with self-care, and he has now had a large l umbar surgery which has resulted in a further decline in his function. He now has increased deficits in attention (likely multifacorial for pain and new environment), coordination, am bulation, strength, ADLs, and IADLs. He has also been very motivated with therapies and has proved that he can tolerate three hours of therapies making him an excellent candidate for acute inpatient rehabilitation. He is also medically complex and will likely likely make be tter gains with an acute inpatient rehabilitation stay over a SNF placement at this time and is not safe to be discharged home. #Rehabilitation Medicine Recommendations: --Continue PT for strength, endurance, ROM, ambulation, balance --Continue OT for UE strengthening, functioning, and ROM; and training in ADLs, IADLs --Continue Speech therapy (OUTSIDE MACHINIST) to follow for for cognitive/communication evaluation --Encourage having patient out of bed to chair at least BID with assistance --Contracture prevention: Recommend daily ranging of upper and lower extremities at least 2 -3x per day. Maintain shoulder ROM, positioning & splinting of hands and fingers as needed i f ROM decreases. #Bladder: Agree with continuing rogers for now; primary team to initiate voiding trials as a ppropriate (recommend checking pre- and post-void bladder scan. If volume >300ml, have patie nt void and double void. If unable, recommend intermittent catheterization.) #Bowel: He is requiring opiate pain management so recommend starting daily bowel regimen wi th docusate and senna. #L2-5 anterior and posterior fusion - -Continue PRN oxycodone -will consider starting scheduled tylenol if he has significant pain during therapies -C-brace precautions #Stroke presumably left MCA based on exam - Per patient spasticity has increased in past ye ar but in reviewing his outpatient notes it is not clear if this is true. Could be related to his spine issues vs another CVA. Either way his spasticity has to be more aggressively t reated as it is contributing to his frequent falls -Recommend starting baclofen 10mg BID, with up-titration to 10mg TID early next week -Continue Atorvastatin 40mg daily -Was taking coumadin prior to surgery which has been temporarily held, will need guidance for NSGY team on when safe to re-start (per admit med rec was taking 22.5mg once a week whi ch is a unique dosing plan will try to clarify with PCP why this was used) -Re-start ASA 325mg when cleared by NSGY also -Continue losartan 50mg daily #?autoimmune disease - patient is taking CellCept, unclear from his notes why he is taking this, the dose he is taking is not therapeutic either, typically the minimal therapeutic dos e is 500mg BID. This does put him at an increased risk of infection. -Continue Cellcept 500mg qday for now and will get clarification for PCP on why he is taki ng it. #BPH - currently has a rogers, will removed once more mobil and check PVRs -continue finasteride 5mg daily #History of depression - stable -Continue citalopram 40mg daily, the recommended maximum dose for geriatric patients is 20 mg daily will also clarify this with PCP #SOB - this morning, patient reports history of mild wheezing but worse this morning and di d use inhaler at home. -Continue RT Thank you for the opportunity to be involved in the care of this patient. Please feel free to call with questions or concerns. I will continue to follow with you regarding rehabilitat ion needs. -- -- -- -- -- -- -- -- -- -- -- -- -- -- -- -- -- -- -- -- ---- -- -- -- -- -- -- -- -- -- -- -- -- -- -- -- -- -- -- -- -- Supplemental Rehab Info: Primary Diagnosis: Stroke 01.2 Right body involvement (left brain) Onset: 2004, but failing at home and now s/p multi-level lumbar surgery Impairments include: cognitive deficits, contractures, hemiplegia, motor weakness, spastici ty Comorbidities: (current medical problems) Patient Active Problem List Diagnosis FOOT DEFORMITY, ACQUIRED PAIN IN LIMB SPASTIC HEMIPLEGIA AFFECTING UNSPECIFIED SIDE SPASTIC HEMIPLEGIA AFFECTING DOMINANT SIDE HEMIPL AFFECT UNSPEC SIDE DUE CEREBRVASC DISEASE MUSCLE FASCICULATIONS CEREBRAL THROMBOSIS, WITH INFARCTION SPASM OF MUSCLE Back pain of thoracolumbar region - left flank region Facet arthritis of lumbar region Trochanteric bursitis of right hip Spondylolisthesis, lumbar region Lumbar radiculopathy DDD (degenerative disc disease), lumbar Lumbar facet arthropathy Neurogenic claudication Myelopathy DDD (degenerative disc disease), cervical Postural kyphosis of lumbar region Stroke High cholesterol GERD (gastroesophageal reflux disease) Hypertension Depression Chronic anticoagulation Rehab Problem list: Impaired mobility Impaired ADLs Impaired IADLs Impaired avocation Impaired spiritual access Rehab: Patient has demonstrated he can participate in 3 hours of therapy per day and demonstrates appropriate carryover, so we will plan on admitting him tomorrow morning. He is also medica lly stable with no further medical/surgical interventions planned, but has complex rehab nee ds requiring intensive therapy intervention. I anticipate that the patient will meet the fol lowing criteria: 1) able to make a meaningful amount of functional progress in a reasonable amount of time. 2) The patient is willing and able to participate in rehabilitation therapies based on prog ress during acute care. 3) The patient will require 24 hours supervision from rehabilitation physicians and nursing . 4) Rehabilitation goals cannot be achieved at a lower level of care. 5) Patient requires a minimum of the 3 hours of intensive therapy per day. Rehabilitation medicine physician for daily monitoring of care, 24 hour availability for ac [place] medical issues, medication management, and therapeutic and diagnostic assessments. 24 hour rehabilitation nursing 7 days per week for: management/teaching of medications, bow el/bladder routine, skin care. PT for 60-90 minutes per day 5-6 days/week OT for 60-90 minutes per day 5-6 days/week OUTSIDE MACHINIST for 60 minutes per day 2-3 days/week P&O: May need orthosis, still TBD. If so, will need 2-3 visits, 1 hour per visit. 3 days. for discharge planning, community resources, and family support. Estimated length of stay is 14 days and pt is planning to discharge home with intermittent supervision Current barriers to inpatient rehabilitation include: none Goals/Expected level of improvement: mod I with ambulation (with pravin cane vs MWC), mod I w ith ADLs, supervision-min A with iADLs, mod I for toileting, and supervision with community access. Potential Clinical Complications: fall, infection, DVT, stroke Signed: Eduard Young MD DATE/TIME: 07/05/2016 16:24 Portions of this chart may have been created with [employer] voice recognition software. Occas ional wrong-word or sound-alike substitutions may have occurred due to the inherent li mitations of voice recognition software. Please read the chart carefully and recognize, jaswant g context, where these substitutions have occurred unham, Jena Naik RN - 07/04/2016 9:45 AM PDTOrder received for acute rehab consult. Awaiting therapy evalua tions to be completed before making a recommendation on rehab services; IPR will follow prog ress. Thank you for this referral. Electronically signed by: Jena Rosales RN CRRDiomedes 016 9:45 documented in this en counter Miscellaneous Notes Plan of Care - Michael Waller RN - 07/06/2016 9:33 AM PDTProblem: Patient Care Overview (Adult) Goal: Care Team Goals & Evaluation PROBLEM-RELATED GOALS: 1. Pt will ambulate to bathroom by 07/06/16 2. Pt will void within 6 hours upon arrival to the floor (Completed) 3. Pt will tolerate a general diet by 07/04/16 (Completed) 4. Pt will have no new numbness or tingling by 07/06/16 5. Pt will be modified independent in hallway by 07/10/16. 6. Will maintain adequate oxygenation via oximetry with SpO2 >92% by 07/10/16. 7. Will maintain a patent airway and effective airway clearance by 07/10/16. 8. Pt. To be min to mod(A) with ADLs, and min. (A) with functional transfers by 07/08/16 STRATEGY TO ACHIEVE GOALS: Encourage to ambulate when safe. Encourage pt to drink fluids and voiding. Advance diet slowly. Perform neuro assessment for muscle strengths and sensation. -Pt will participate in PT activities. -Pt will sit up in chair for all meals. - Monitor saturations via oximetry every shift and titrate to order as indicated. - Perform airway clearance using incentive spirometer therapy. -OT intervention and post-op training with precautions. RESTRAINT-RELATED GOALS: STRATEGIES TO ACHIEVE RESTRAINT GOALS: Outcome: Declining Goal Evaluation: Medicated with Flexeril and one Oxycodone pill per Pt's request. Denies numbness to bilate ral LE. Muscle strength 4/5 to RLE, LLE 5/5. Uses FWW. Pt will be transferred to [facility] today. lan of Care - Filippo Guardado RN - 07/06/2016 5:30 AM PDTProblem: Patient Care Overview (Adult) Goal: Care Team Goals & Evaluation PROBLEM-RELATED GOALS: 1. Pt will ambulate to bathroom by 07/06/16 2. Pt will void within 6 hours upon arrival to the floor (Completed) 3. Pt will tolerate a general diet by 07/04/16 (Completed) 4. Pt will have no new numbness or tingling by 07/06/16 5. Pt will be modified independent in hallway by 07/10/16. 6. Will maintain adequate oxygenation via oximetry with SpO2 >92% by 07/10/16. 7. Will maintain a patent airway and effective airway clearance by 07/10/16. 8. Pt. To be min to mod(A) with ADLs, and min. (A) with functional transfers by 07/08/16 STRATEGY TO ACHIEVE GOALS: Encourage to ambulate when safe. Encourage pt to drink fluids and voiding. Advance diet slowly. Perform neuro assessment for muscle strengths and sensation. -Pt will participate in PT activities. -Pt will sit up in chair for all meals. - Monitor saturations via oximetry every shift and titrate to order as indicated. - Perform airway clearance using incentive spirometer therapy. -OT intervention and post-op training with precautions. RESTRAINT-RELATED GOALS: STRATEGIES TO ACHIEVE RESTRAINT GOALS: Outcome: Improving Goal Evaluation: Patient alert, calm, and cooperative. Patient denied pain and discomfort. Patient had a gr eat night, was able to sleep most of the evening, with only one urine accident. Heart rate r egular. Lungs clear and equal bilaterally. CMS intact. Cap refill < 3 seconds bilateral feet and hands. Bowel tones active in x 4 quads. Afebrile. lan of Care - Rula West RN - 07/05/2016 8:42 PM PDTProblem: Patient Care Overview (Adult) Goal: Care Team Goals & Evaluation PROBLEM-RELATED GOALS: 1. Pt will ambulate to bathroom by 07/06/16 2. Pt will void within 6 hours upon arrival to the floor (Completed) 3. Pt will tolerate a general diet by 07/04/16 (Completed) 4. Pt will have no new numbness or tingling by 07/06/16 5. Pt will be modified independent in hallway by 07/10/16. 6. Will maintain adequate oxygenation via oximetry with SpO2 >92% by 07/10/16. 7. Will maintain a patent airway and effective airway clearance by 07/10/16. 8. Pt. To be min to mod(A) with ADLs, and min. (A) with functional transfers by 07/08/16 STRATEGY TO ACHIEVE GOALS: Encourage to ambulate when safe. Encourage pt to drink fluids and voiding. Advance diet slowly. Perform neuro assessment for muscle strengths and sensation. -Pt will participate in PT activities. -Pt will sit up in chair for all meals. - Monitor saturations via oximetry every shift and titrate to order as indicated. - Perform airway clearance using incentive spirometer therapy. -OT intervention and post-op training with precautions. RESTRAINT-RELATED GOALS: STRATEGIES TO ACHIEVE RESTRAINT GOALS: Outcome: Improving Goal Evaluation: Pt is doing better this shift, appears more alert. He is easily exhausted. Pt bandaids are CDI to back and flank. Pt received oxycodone x2 this shift. He was up in the chair for 2 me als. He continues to have a poor appetite. Mod assist stand pivot to chair, BLE appear weak when standing. R sided extremities are rigid. lan of Care - Hector Davila, PT - 07/05/2016 4:59 PM PDTProblem: Patient Care Overview (Adult) Goal: Care Team Goals & Evaluation PROBLEM-RELATED GOALS: 1. Pt will ambulate to bathroom by 07/06/16 2. Pt will void within 6 hours upon arrival to the floor (Completed) 3. Pt will tolerate a general diet by 07/04/16 (Completed) 4. Pt will have no new numbness or tingling by 07/06/16 5. Pt will be modified independent in hallway by 07/10/16. 6. Will maintain adequate oxygenation via oximetry with SpO2 >92% by 07/10/16. 7. Will maintain a patent airway and effective airway clearance by 07/10/16. 8. Pt. To be min to mod(A) with ADLs, and min. (A) with functional transfers by 07/08/16 STRATEGY TO ACHIEVE GOALS: Encourage to ambulate when safe. Encourage pt to drink fluids and voiding. Advance diet slowly. Perform neuro assessment for muscle strengths and sensation. -Pt will participate in PT activities. -Pt will sit up in chair for all meals. - Monitor saturations via oximetry every shift and titrate to order as indicated. - Perform airway clearance using incentive spirometer therapy. -OT intervention and post-op training with precautions. RESTRAINT-RELATED GOALS: STRATEGIES TO ACHIEVE RESTRAINT GOALS: Outcome: Improving Physical Therapy Daily Treatment Note Patient Information Patient Name: Kevin Aleman . Date of : 1945 Age: 70 y.o. Precautions/Limitations: falls, spinal, orthotic/bracing History of Presenting Problem: back and right hip pain. Pt is now s/p L2-4 LAIF; L4-L5 TLI F; L2-L5 posterior instrumentation. PT Diagnosis: Impaired mobility Start Time: 1330 Stop time: 1354 Time Calculation: 24 minutes Missed Treatment Time: 0 minutes Total Treatment Time: 24 minutes TimedTreatment Code Minutes: 24 minutes Subjective: Pt received in room supine in bed, no family present. Pt with c/o 6/10 pain in supine and fatigue. Pt with audible adventitious lung sounds with exertion. Pt agreeable t o limited PT due to pain. Objective: Treatment Provided: Bed mobility, transfer training to commode with cues for safety and juan hnique; LE stregthening Education: Safety, PT plan of care. Patient Status/Goals: Reflects last filed data of patient status; may be from multiple contributors. Gait 2 sidesteps to the right Level of [place] : moderate assist (50% patient effort), 2 person assist required Assistive Device: 2 wheeled walker (FWW) Distance (feet): 2 sidesteps Gait Deviations: hiram decreased, limb motion velocity decreased, step length decreased, [id number] clearance decreased Transfers (transfer to commode from bed) Bed-Chair, Level of [place]: minimum assist (75% patient effort) Chair-Bed, Level of [place]: minimum assist (75% patient effort) [id number], Assistive Device: 2 wheeled walker (FWW) Sit-Stand, Level of [place]: minimum assist (75% patient effort), 2 person assist requ ired Stand-Sit, Level of [place]: contact guard assist, 2 person assist required [id number], Assistive Device: 2 wheeled walker (FWW) Safety Issues: balance decreased during turns, step length decreased, weight-shifting abili ty decreased, loses balance backward Impairments: muscle tone abnormal, ROM decreased, strength decreased, impaired balance, printing services coordinator rdination impaired, motor control impaired, postural control impaired, pain Bed Mobility Assistive Device: bed rails (HOB flat) Roll Left, Level of [place]: supervision required Supine to Sit, Level of [place]: minimum assist (75% patient effort) Sit to Supine, Level of [place]: moderate assist (50% patient effort) (assistance with BLE) Safety Issues: decreased use of legs for bridging/pushing, decreased use of arms for pushin g/pulling Impairments: muscle tone abnormal, ROM decreased, strength decreased, impaired balance, printing services coordinator rdination impaired, motor control impaired, postural control impaired, pain Balance Sitting Balance: Static: fair balance Sitting Balance: Dynamic: fair balance Standing Balance: Static: poor balance Standing Balance: Dynamic: poor balance Therapeutic Exercise Seated exercises: bilateral, marching, long arc quads Functional Endurance Fair ROM ROM Testing Results: no range of motion deficits identified L LE ROM: WFL R LE ROM: (Pt with extensor spasticity limiting knee flexion. 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 Vision Corrective lenses Muscle Tone Muscle Tone Assessment Muscle Tone Assessment: right-sided extremities Right-Side Extremities Muscle Tone Assessment: hypertonic (Pt with RUE adn RLE spasticity w ith passive and active movement) STG GOALS [place] Level: independent Time to Achieve: 2 days Goal Status: progressing toward goal Transfer Training Goal, Activity Type: bed to chair /chair to bed, sit to stand/stand to si t [place] Level: modified independence Assistive Device: 2 wheeled walker (FWW) Time to Achieve: 2 days Goal Status: progressing toward goal Gait Training Goal, [place] Level: modified independence Assistive Device: 2 wheeled walker (FWW) Distance: 150 feet Time to Achieve: 2 days Goal Status: continued FIM: FIM Transfers Bed/Chair/Wheelchair: 1 Bed/Chair/WC Score Evidence: 1 Two Helpers FIM Self Care Groomin Grooming Score Evidence: 5 Safety Supervison, 6 Extra Time, 5 Get Items Bathin Bathing Score Evidence: 1 Two Helpers, front becky area, buttocks, 5 Safety Supervison, 5 Ve rbal Cues, 6 Extra Time Dressing - Lower Body: 1 Dressing Lower Score Evidence: 1 Two Helpers, On/Off R Pant Leg, On/Off L Pant Leg, 4 Stead krishna, 5 Verbal Cues, 5 Safety Supervision, 6 Extra Time FIM Locomotion Walk: 1 Distance Walked (feet): 2 feet Walk Score Evidence: 1 Walks <50 ft FIM Modifier DC Locomotion: both FIM Modifier Walk Distance: 1 <50 feet Wheelchair: 0 FIM Modifier WC Distance: 0 did not occur Stairs: 0 Stairs Score Evidence: 0 Did Not Occur Assessment: Pt mobility limited today by pain and fatigue, however he did agree to limited PT. Pt demonstrates decreased functional ROM in BLE in standing and ambulates with a crouche d gait. He continues to be limited functionally by spasticity of primarily flexor presentat ion, as evident with PROM especially right hamstrings. He will benefit from continued physi awa therapy to decrease tone, increase strength, increase balance and functional mobility to improve safety and independence. At this time patient is Mod A using 2WW for bedside commo de transfer. Physical Therapy Anticipated Discharge Needs are: inpatient rehabilitation facility Have the anticipated discharge needs changed? no Post discharge physical therapy recommendation: TBD Plan for next treatment: 3E; daily; RL; 2WW; bed mobility; transfer training to bedside era ir; gait training with 2WW; Tinetti LAISHA; balance training Electronically signed by: Hector Davila, PT, 07/05/2016 16:47 lan of Care - B juliaKarla Xin, [employer] - 07/05/2016 3:53 PM PDTFormatting of this note might be different f rom the original. Problem: Patient Care Overview (Adult) Goal: Care Team Goals & Evaluation PROBLEM-RELATED GOALS: 1. Pt will ambulate to bathroom by 07/06/16 2. Pt will void within 6 hours upon arrival to the floor (Completed) 3. Pt will tolerate a general diet by 07/04/16 (Completed) 4. Pt will have no new numbness or tingling by 07/06/16 5. Pt will be modified independent in hallway by 07/10/16. 6. Will maintain adequate oxygenation via oximetry with SpO2 >92% by 07/10/16. 7. Will maintain a patent airway and effective airway clearance by 07/10/16. 8. Pt. To be min to mod(A) with ADLs, and min. (A) with functional transfers by 07/08/16 STRATEGY TO ACHIEVE GOALS: Encourage to ambulate when safe. Encourage pt to drink fluids and voiding. Advance diet slowly. Perform neuro assessment for muscle strengths and sensation. -Pt will participate in PT activities. -Pt will sit up in chair for all meals. - Monitor saturations via oximetry every shift and titrate to order as indicated. - Perform airway clearance using incentive spirometer therapy. -OT intervention and post-op training with precautions. RESTRAINT-RELATED GOALS: STRATEGIES TO ACHIEVE RESTRAINT GOALS: Goal Evaluation: Patient is on oxygen at 2l/m nc. Breath sounds clear/diminished. Encouraged insp use. Ayaan spain stated he gets sob and begins to wheeze when he gets frustrated. Patient does have a 30 year pack smoking history. Will order prn albuterol treatments. Continue to monitor pat ient. Severity Score 6 Class 2 Severity Score 0-4 ITEM 0 1 2 3 4 3 Respiratory History No Smoking history Current tobacco use Up to 10 Pack year history. Simple home regimen Known Pulmonary Disease 20 pack year history Complex Home regimen 30+ pack year history Severe Pulmonary Disease or exacerbation 1 Surgery Status (current admission) No surgery Minor surgery Lower abdominal rib fractures Thoracic or uppe r abdominal Thoracic with pulmonary disease or Central Nervous System 1 Chest X-RAY Clear or Normal baseline Unavailable Improving/clearing Abnormal, Unilateral or mild Infiltrates or atelectasis, Chronic changes Infiltrates mild bilateral or unilateral or pleural effusions extensive Inf iltrates, atelectasis or pleural effusions, pneumothorax 0 Respiratory Pattern Regular pattern Respiratory Rate:8-20 Increased Respiratory Rate, labored Dyspnea on exertion, irregular pattern Use of accessory muscles, prolonged expirato ry phase nasal flaring Severe Dyspnea , Purse Lip Breathing, Use of accessory muscles 0 Breath Sounds Clear Diminished unilaterally Diminished bilaterally &/or crackles Wheezing or Rhonchi &/or absent unilateral Absent bilaterally 0 Cough Strong, non productive Moderate, loose, productive Weak, non-productive Weak, ineffective Non-spontaneous or may require suctioning 0 Sputum None Scant / Thin White/clear Moderate Beige/ yellow Large / Thick Dark Green/Brown Copious / Plugs Hemoptysis abbey 0 LOC Alert, oriented, cooperative Disoriented, follows commands Obtunded, arousable, follo ws commands Obtunded, uncooperative, sedated Comatose 1 Oxygen Demand Room air Baseline 1-2 liters 3-6 liters >7 Liters Oxymizer to > 55% 60% or greater Total Severity Score (SS) Class 0-3 1 4-7 2 8-11 3 12-14 4 15+ 5 lan of Care - Mellissa Cantu OT - 07/05/2016 12:29 PM PDTProblem: Patient Care Overview (Adult) Goal: Care Team Goals & Evaluation PROBLEM-RELATED GOALS: 1. Pt will ambulate to bathroom by 07/06/16 2. Pt will void within 6 hours upon arrival to the floor (Completed) 3. Pt will tolerate a general diet by 07/04/16 (Completed) 4. Pt will have no new numbness or tingling by 07/06/16 5. Pt will be modified independent in hallway by 07/10/16. 6. Will maintain adequate oxygenation via oximetry with SpO2 >92% by 07/10/16. 7. Will maintain a patent airway and effective airway clearance by 07/10/16. 8. Pt. To be min to mod(A) with ADLs, and min. (A) with functional transfers by 07/08/16 STRATEGY TO ACHIEVE GOALS: Encourage to ambulate when safe. Encourage pt to drink fluids and voiding. Advance diet slowly. Perform neuro assessment for muscle strengths and sensation. -Pt will participate in PT activities. -Pt will sit up in chair for all meals. - Monitor saturations via oximetry every shift and titrate to order as indicated. - Perform airway clearance using incentive spirometer therapy. -OT intervention and post-op training with precautions. RESTRAINT-RELATED GOALS: STRATEGIES TO ACHIEVE RESTRAINT GOALS: Outcome: Improving Occupational Therapy Daily Treatment Note Patient Information Patient Name: Kevin Aleman . Date of : 1945 Age: 70 y.o. Precautions/Limitations: falls, spinal, orthotic/bracing Start Time: 08 Stop time: 934 Time Calculation: 52 minutes Missed Treatment Time: minutes Total Treatment Time: 52 minutes TimedTreatment Code Minutes: 52 minutes Frequency: 5 times/wk Subjective: Anxious, concerned about his breathing. Spilled his tea on himself and needs a new gown. Objective: Pt seen for light ADLs, functional mobility. Alert & oriented to situation, C-Bracing stat us. Reviewed precautions and posted in room. Educated pt on log-roll technique for supine- sit as he did not fully recall process. Completed supine-sit w/ min assist. Seated EOB com pleted light sponge bath, see below for level of assistance. Completed LB dressing, see bel ow. Initiated use of director investor relations to don over feet. Sit-stand w/ min assist, 2nd person for saf ety. Stood w/ minimal bent knee posture but appears to be less than yesterday. Tolerated s tanding for becky-hygiene and to manage pants. 2-person min physical assist to transfer to hair @ bedside. Multiple verbal cues to maintain safe distance to FWW, advance LLE. Pt rep orts difficulty moving RLE but RLE advanced easier than L. Seated in chair, brushed teeth. Briefly educated on IRF. Pt uncertain if he can participate the 3 hours necessary. Urgent need to use urinal and had incontinence. Care transitioned to EMAIL DEVELOPER. Education: Log-roll; safety Treatment Provided: ADL training; functional mobility; safety awareness Patient Status/Goals Reflects last filed data of patient status; may be from multiple contributors. ADLs UB, becky-area this visit Bathing, Level of [place]: moderate assist (50% patient effort), verbal cues required, set up required, 2 person assist required Bathing Assess/Train, Position: sitting, supported standing Bathing Assess/Train, Impairments: decreased flexibility, ROM decreased, pain, impaired bal ance Pants only this visit LB, Level of [place]: 2 person assist required, maximum assist (25% patient effort), v erbal cues required, set up required Assistive Device: director investor relations LB Dressing Assess/Train, Position: sitting, supported standing Toothbrushing, face wash only Grooming, Level of [place]: set up required, verbal cues required Grooming Assess/Train, Position: sitting Grooming Assess/Train, Impairments: coordination impaired Cognitive Decreased processing, motor planning Attention: mild impairment Personal Safety: moderate impairment Sequencing: mild impairment STG Goals Transfer Training Goal, Activity Type: toilet [place] Level: minimum assist (75% patient effort) Assistive Device: 2 wheeled walker (FWW) Time to Achieve: 5 - 7 days Goal Status: continued Grooming Goal, [place] Level: set up required, supervision required Adaptive Equipment: none Position: sitting in chair Time to Achieve: 2 - 3 days Goal Status: progressing toward goal UB Dressing Goal, [place] Level: minimum assist (75% patient effort) Adaptive Equipment: none Time to Achieve: 4 days Goal Status: not addressed LB Dressing Goal, [place] Level: moderate assist (50% patient effort) Adaptive Equipment: director investor relations, dressing stick, shoe horn, long handled Time to Achieve: 5 - 7 days Goal Status: progressing toward goal FIM: FIM Self Care Groomin Grooming Score Evidence: 5 Safety Supervison, 6 Extra Time, 5 Get Items Bathin Bathing Score Evidence: 1 Two Helpers, front becky area, buttocks, 5 Safety Supervison, 5 Ve rbal Cues, 6 Extra Time Dressing - Lower Body: 1 Dressing Lower Score Evidence: 1 Two Helpers, On/Off R Pant Leg, On/Off L Pant Leg, 4 Stead krishna, 5 Verbal Cues, 5 Safety Supervision, 6 Extra Time Assessment: Good use of RUE w/i ADLs. Standing and RLE function appear to have less spasti city than yesterday. Decreased motor planning, processing, especially w/ transfers and LB d ressing. Pt anxious w/ his SOB, wheezing- limited success in pursed lip breathing to slow r ate. O2 sats stable w/ the activity. May benefit from further rehab intervention- IRF vs S NF vs Home Health. Occupational Therapy Anticipated Discharge Needs are: shelter facility, inpatient rehabilitation facility Have the anticipated discharge needs changed? no Post discharge occupational therapy recommendation: TBD- continue OT intervention Plan for next treatment: 2P,JM.U/LB dressing, commode transfer, increase short-distance amb ulation,review precautions, family ed Electronically signed by: Mellissa Cantu, OT, 07/05/2016 12:24 lan of Care - Filippo Castillo RN - 07/05/2016 4:38 AM PDTProblem: Patient Care Overview (Adult) Goal: Care Team Goals & Evaluation PROBLEM-RELATED GOALS: 1. Pt will ambulate to bathroom by 07/06/16 2. Pt will void within 6 hours upon arrival to the floor (Completed) 3. Pt will tolerate a general diet by 07/04/16 (Completed) 4. Pt will have no new numbness or tingling by 07/06/16 5. Pt will be modified independent in hallway by 07/10/16. 6. Will maintain adequate oxygenation via oximetry with SpO2 >92% by 07/10/16. 7. Will maintain a patent airway and effective airway clearance by 07/10/16. 8. Pt. To be min to mod(A) with ADLs, and min. (A) with functional transfers by 07/08/16 STRATEGY TO ACHIEVE GOALS: Encourage to ambulate when safe. Encourage pt to drink fluids and voiding. Advance diet slowly. Perform neuro assessment for muscle strengths and sensation. -Pt will participate in PT activities. -Pt will sit up in chair for all meals. - Monitor saturations via oximetry every shift and titrate to order as indicated. - Perform airway clearance using incentive spirometer therapy. -OT intervention and post-op training with precautions. RESTRAINT-RELATED GOALS: STRATEGIES TO ACHIEVE RESTRAINT GOALS: Outcome: Improving Goal Evaluation: Patient alert, cooperative, but confused on place, and time. Patient complained of pain x 1 but was well controlled with PRN morphine. Patient complained of urinary urgency and had d ifficulty pressing call light for assistance thus he had several incontinent episodes of uri ne. Dressings clean, dry, and intact of left lateral and bilateral lower back. CMS intact. C ap refill < 3 seconds bilateral feet and hands. Heart rate regular. Lungs clear bilaterally. Will become dyspneic on exertion. 2L NC utilized. Bowel sounds active x [address]. [address] ated 07/02/16. Afebrile. lan of Care - Silvia Sosa, [employer] - 07/05/2016 1:03 AM PDTProblem: Patient Care Overview (Adult) Goal: Care Team Goals & Evaluation PROBLEM-RELATED GOALS: 1. Pt will ambulate to bathroom by 07/06/16 2. Pt will void within 6 hours of arriving to floor 07/03/16 3. Pt will tolerate a general diet by 07/04/16 4. Pt will have no new numbness or tingling by 07/06/16 5. Pt will be modified independent in hallway by 07/10/16. 6. Will maintain adequate oxygenation via oximetry with SpO2 >92% by 07/10/16. 7. Will maintain a patent airway and effective airway clearance by 07/10/16. 8. Pt. To be min to mod(A) with ADLs, and min. (A) with functional transfers by 07/08/16 STRATEGY TO ACHIEVE GOALS: Encourage to ambulate when safe. Encourage pt to drink fluids and voiding. Advance diet slowly. Perform neuro assessment for muscle strengths and sensation. -Pt will participate in PT activities. -Pt will sit up in chair for all meals. - Monitor saturations via oximetry every shift and titrate to order as indicated. - Perform airway clearance using incentive spirometer therapy. -OT intervention and post-op training with precautions. RESTRAINT-RELATED GOALS: STRATEGIES TO ACHIEVE RESTRAINT GOALS: Goal Evaluation: Kevin achieves 1200 of a goal of 2150 on the incentive spirometer. SpO2: 94 % on 3liters/ minute nasal cannula, BS clear/diminished. lan of Care - Rula West RN - 07/04/2016 6:31 PM PDTProblem: Patient Care Overview (Adult) Goal: Care Team Goals & Evaluation PROBLEM-RELATED GOALS: 1. Pt will ambulate to bathroom by 07/06/16 2. Pt will void within 6 hours of arriving to floor 07/03/16 3. Pt will tolerate a general diet by 07/04/16 4. Pt will have no new numbness or tingling by 07/06/16 5. Pt will be modified independent in hallway by 07/10/16. 6. Will maintain adequate oxygenation via oximetry with SpO2 >92% by 07/10/16. 7. Will maintain a patent airway and effective airway clearance by 07/10/16. 8. Pt. To be min to mod(A) with ADLs, and min. (A) with functional transfers by 07/08/16 STRATEGY TO ACHIEVE GOALS: Encourage to ambulate when safe. Encourage pt to drink fluids and voiding. Advance diet slowly. Perform neuro assessment for muscle strengths and sensation. -Pt will participate in PT activities. -Pt will sit up in chair for all meals. - Monitor saturations via oximetry every shift and titrate to order as indicated. - Perform airway clearance using incentive spirometer therapy. -OT intervention and post-op training with precautions. RESTRAINT-RELATED GOALS: STRATEGIES TO ACHIEVE RESTRAINT GOALS: Outcome: Improving Goal Evaluation: Pt was more alert this shift, he was able to hold a convo without falling asleep. Pt is a 2 person transfer to a chair, mod assist. Pt was able to void this shift, 1 PVR 311 mL, pt refused straight cath. Pt has had a poor appetite this shift. Pt denies numbness and tingling. Pt is still requiring 3-4L of O2 to maintain SpO2. lan of Care - Binh Schafer RRT - 07/04/2016 4:49 PM PDTProblem: Patient Care Overview (Adult) Goal: Care Team Goals & Evaluation PROBLEM-RELATED GOALS: 1. Pt will ambulate to bathroom by 07/06/16 2. Pt will void within 6 hours of arriving to floor 07/03/16 3. Pt will tolerate a general diet by 07/04/16 4. Pt will have no new numbness or tingling by 07/06/16 5. Pt will be modified independent in hallway by 07/10/16. 6. Will maintain adequate oxygenation via oximetry with SpO2 >92% by 07/10/16. 7. Will maintain a patent airway and effective airway clearance by 07/10/16. 8. Pt. To be min to mod(A) with ADLs, and min. (A) with functional transfers by 07/08/16 STRATEGY TO ACHIEVE GOALS: Encourage to ambulate when safe. Encourage pt to drink fluids and voiding. Advance diet slowly. Perform neuro assessment for muscle strengths and sensation. -Pt will participate in PT activities. -Pt will sit up in chair for all meals. - Monitor saturations via oximetry every shift and titrate to order as indicated. - Perform airway clearance using incentive spirometer therapy. -OT intervention and post-op training with precautions. RESTRAINT-RELATED GOALS: STRATEGIES TO ACHIEVE RESTRAINT GOALS: Outcome: Improving Goal Evaluation: BS clear and diminished, SpO2 93% on 3 lpm NC, works fairly well with IS Patient achieving 1200 of Predicted Level (mL) : 2150 continue to encourage use lan of Care - Jessica Myers OT - 07/04/2016 4:09 PM PDT Problem: Patient Care Overview (Adult) Goal: Care Team Goals & Evaluation PROBLEM-RELATED GOALS: 1. Pt will ambulate to bathroom by 07/06/16 2. Pt will void within 6 hours of arriving to floor 07/03/16 3. Pt will tolerate a general diet by 07/04/16 4. Pt will have no new numbness or tingling by 07/06/16 5. Pt will be modified independent in hallway by 07/10/16. 6. Will maintain adequate oxygenation via oximetry with SpO2 >92% by 07/10/16. 7. Will maintain a patent airway and effective airway clearance by 07/10/16. 8. Pt. To be min to mod(A) with ADLs, and min. (A) with functional transfers by 07/08/16 STRATEGY TO ACHIEVE GOALS: Encourage to ambulate when safe. Encourage pt to drink fluids and voiding. Advance diet slowly. Perform neuro assessment for muscle strengths and sensation. -Pt will participate in PT activities. -Pt will sit up in chair for all meals. - Monitor saturations via oximetry every shift and titrate to order as indicated. - Perform airway clearance using incentive spirometer therapy. -OT intervention and post-op training with precautions. RESTRAINT-RELATED GOALS: STRATEGIES TO ACHIEVE RESTRAINT GOALS: Occupational Therapy Acute Initial Evaluation Note Patient Information Patient Name: Kevin Aleman Sr. Date of : 1945 Age: 70 y.o. History Encounter Diagnoses Code Name Primary? 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 is a 70 y.o. who presents to therapy for back and right hip pain. Pt is now s/p L2-4 LAIF; L4-L5 TLIF; L2-L5 posterio r instrumentation. Patient is right handed. OT Diagnosis: OT eval and treat s/p lumbar fusion, multiple levels with severe weakness. Previous Level of Function: Transferring: independent Ambulation: independent (uses a cane) Toileting: independent Bathing: independent Dressing: independent Eating: independent Communication: understands/communicates without difficulty Swallowin-->swallows foods/liquids without difficulty Equipment Currently Used at Home: cane, straight, single point Prior Functional Level Comment: hx cva with right leg weakness. Lives with his , and u sed a forearm crutch. His home has 3 steps up in front door, no steps from garage? He has a walk in shower and a tub. He has access to a 4WW,. He states he was (I) driving, and wou ld let the dog out to go potty. Role/Relationships: Significant Relationships: spouse Parent Marital Status: Living Environment/Accessibility: Lives With: spouse Living Arrangements: mobile home Home Accessibility: no concerns Patient s Goals: unstated. OT Visit Summary: OT was able to convince Pt. the importance of getting up and sitting. P t. states he has not been up OOB. He is a C brace and had LSO on. Pt. sat up at EOB, and h ad oxygen on. His oxygen was 93-96%. He agreed to stand up. and was able to stand and brenda e steps in place, then step side ways up side of bed, and step pivot to chair. He agreed to sit up in chair for 30 min. Pt. declined to wash up except he washed his face. Occupational Therapy will follow Kevin lAeman Sr. 5 times/wk until discharge from [facility] or discharged from the hospital. Occupational Therapy Anticipated Discharge Needs: Ongoing occupational therapy required. DC disposition TBD. Post discharge occupational therapy recommendation: ongoing low intensity therapy Equipment Recommendations: 2 wheeled walker (FWW) Identified Problems Needing Skilled Intervention: OT eval and treat s/p lumbar fusion, mu ltiple levels with severe weakness. , aerobic capacity/endurance, ergonomics and body mechan ics, gait, locomotion, and balance, muscle performance Planned Interventions:Planned Therapy Interventions: ADL retraining, transfer training, ort hotic fitting/training Patient Status/Goals Reflects last filed data of patient status; may be from multiple contributors. FIM: FIM Transfers Bed/Chair/Wheelchair: 1 Bed/Chair/WC Score Evidence: 1 Two Helpers FIM Locomotion Walk: 1 Distance Walked (feet): 2 feet Walk Score Evidence: 1 Walks <50 ft FIM Modifier DC Locomotion: both FIM Modifier Walk Distance: 1 <50 feet Wheelchair: 0 FIM Modifier WC Distance: 0 did not occur Stairs: 0 Stairs Score Evidence: 0 Did Not Occur ADLs Pt. only agreed to wash his face. He states he brushed his teeth earlier. IADLs Therapeutic Exercise Functional Endurance Cognitive Cognitive Tests Bed Mobility Transfers Pt. was mod(A) to get to EOB, and max. (A) to sit up. He stood up with min. (A), and took side steps and step pivot to chair. Wheelchair Mobility Balance ROM Strength STG Goals Transfer Training Goal, Activity Type: toilet [place] Level: minimum assist (75% patient effort) Assistive Device: 2 wheeled walker (FWW) Time to Achieve: 5 - 7 days Goal Status: new Grooming Goal, [place] Level: set up required, supervision required Adaptive Equipment: none Position: sitting in chair Time to Achieve: 2 - 3 days Goal Status: new UB Dressing Goal, [place] Level: minimum assist (75% patient effort) Adaptive Equipment: none Time to Achieve: 4 days LB Dressing Goal, [place] Level: moderate assist (50% patient effort) Adaptive Equipment: director investor relations, dressing stick, shoe horn, long handled Time to Achieve: 5 - 7 days Goal Status: new LTG Goals Demonstrates need for referral to other service: Assessment: Occupational therapy orders received and acknowledged. Objective impairments i nclude sig. Weakness, pain, and C brace restrictions. These impairments are causing function al limitations with patient s inability to complete BADLs, and functional transfers in a s afe manner. He has imp. Balance and due to residual affects of CVA, he has (R) leg weakness . . Complexities contributing to the need for skilled therapy include pain management, resi dual affects of CVA, inability to sit up for more than 10-15 min. Not able to comprehend pos t-op precautions. Prognosis: good, to achieve stated therapy goals Patient and/or family has indicated understanding of treatment needs and actively participa marina in the creation of this plan for care. Today's Treatment Start Time: 1110 Stop time: 1145 Time Calculation: 35 minutes Missed Treatment Time: minutes Total Treatment Time: 35 minutes TimedTreatment Code Minutes: 25 minutes Objective: Education: purpose of OT in hosp. And post-op ed. With C bracing. Treatment Provided: Pt. Seen for eval, and transfer training Assessment: Pt. Was pleasant and cooperative, but is limited by pain. He stood up but did not tolerate walking away from the bed. He anticipated pain and this limited him from movin g away. He expressed 10/10 pain, yet was still able to joke and make comments about the soa p opera on TV. Plan for next treatment: 2P. RG. OT to see for ongoing ADL training/completion, and trans linda training. Electronically signed by: Jessica Connolly OT, 07/04/2016 16:02 lan of Care - Br ock, Hayley Irvin RN - 07/04/2016 1:08 PM PDTProblem: Discharge Planning Goal: Patient will be discharged in a safe manner Discharge planning: This CM met with Mr Kevin Aleman at his bedside today. He states he lives with his in their home in [place]. He state that he is normally independent, he does use a cane when needed. He does not have a FWW and will need one at discharge. He would like to go through [facility] on. He does not use any home oxygen. His PCP is Dr Licea and he uses [facility] in [place]. His , Delilah will be his transportation home when medially stable for discharge. Kevin request that I call his an discuss the above with her as well. Electronically signed by: Hayley Robledo RN 07/04/2016 13:08 This CM contacted patients , Delilah as he requested. Delilah states that they have a walker at home and she will bring it into the hospital to be checked and make sure it is fitted to Kevin. She also states that she would like to see about getting a raised toilet seat. I recommende d she contact [facility] in [place] @ [phone] for a raised toilet seat and if they do not have one she would need to buy one. Delilah does not have any other questions or concerns at this time. Electronically signed by: Hayley Robledo RN 07/04/2016 13:45 This CM received a phone call from Jena with [facility] stating that they are looking at a dmitting Kevin into the [facility] program. This CM called Kevin's , Delilah back to inform her of the [facility] information. Electronically signed by: Hayley Robledo RN 07/04/2016 13:46 lan of Care - Mana sanders, Hector Bella, PT - 07/04/2016 12:41 PM PDTProblem: Patient Care Overview (Adult) Goal: Care Team Goals & Evaluation PROBLEM-RELATED GOALS: 1. Pt will ambulate to bathroom by 07/06/16 2. Pt will void within 6 hours of arriving to floor 07/03/16 3. Pt will tolerate a general diet by 07/04/16 4. Pt will have no new numbness or tingling by 07/06/16 5. Pt will be modified independent in hallway by 07/10/16. 6. Will maintain adequate oxygenation via oximetry with SpO2 >92% by 07/10/16. 7. Will maintain a patent airway and effective airway clearance by 07/10/16. STRATEGY TO ACHIEVE GOALS: Encourage to ambulate when safe. Encourage pt to drink fluids and voiding. Advance diet slowly. Perform neuro assessment for muscle strengths and sensation. -Pt will participate in PT activities. -Pt will sit up in chair for all meals. - Monitor saturations via oximetry every shift and titrate to order as indicated. - Perform airway clearance using incentive spirometer therapy. RESTRAINT-RELATED GOALS: STRATEGIES TO ACHIEVE RESTRAINT GOALS: Outcome: Improving Physical Therapy Daily Treatment Note Patient Information Patient Name: Kevin Aleman . Date of : 1945 Age: 70 y.o. History of Presenting Problem: back and right hip pain. Pt is now s/p L2-4 LAIF; L4-L5 TLI F; L2-L5 posterior instrumentation. PT Diagnosis: Impaired mobility Start Time: 846 Stop time: 929 Time Calculation: 43 minutes Missed Treatment Time: 10 minutes Total Treatment Time: 33 minutes TimedTreatment Code Minutes: 33 minutes Subjective: Pt received in room supine in bed, no family present. Pt agreeable to PT. Objective: Treatment Provided: Bed mobility with cues for safety, transfer training with cues for tech nique and safety; gait training; education Education: Pt plan of care; IRF vs. OP therapy. Patient Status/Goals: Reflects last filed data of patient status; may be from multiple contributors. Gait 2 sidesteps to the right Level of [place] : moderate assist (50% patient effort), 2 person assist required Assistive Device: 2 wheeled walker (FWW) Distance (feet): 2 sidesteps Gait Deviations: hiram decreased, limb motion velocity decreased, step length decreased, [id number] clearance decreased Transfers (sit to stand from edge of eleevated bed 2P for balance. Pt unable to extend knees and th erefore stands in a crouched position) Sit-Stand, Level of [place]: minimum assist (75% patient effort), 2 person assist requ ired Stand-Sit, Level of [place]: contact guard assist, 2 person assist required [id number], Assistive Device: 2 wheeled walker (FWW) Safety Issues: loses balance backward Impairments: muscle tone abnormal, ROM decreased, sensation decreased, strength decreased, impaired balance, coordination impaired, motor control impaired, sensory feedback impaired, pain Bed Mobility Assistive Device: bed rails, HOB elevated Roll Left, Level of [place]: contact guard assist Supine to Sit, Level of [place]: (Assistance with RLE, difficulty extending due to sp asticity) Sit to Supine, Level of [place]: (Assistance with BLE) Safety Issues: decreased use of arms for pushing/pulling, decreased use of legs for bridgin g/pushing Impairments: muscle tone abnormal, ROM decreased, strength decreased, impaired balance, printing services coordinator rdination impaired, motor control impaired, pain, sensory feedback impaired Balance Sitting Balance: Static: fair balance Sitting Balance: Dynamic: fair balance Standing Balance: Static: poor balance Standing Balance: Dynamic: poor balance Functional Endurance Fair ROM ROM Testing Results: no range of motion deficits identified L LE ROM: WFL R LE ROM: (Pt with extensor spasticity limiting knee flexion. Also hip knee contracture l imiting knee extension ) Strength L LE Strength: Grossly 4/5 R LE Strength: grossly 3+/5 Coordination Coordination Coordination Comments: (Pt demonstrates disdiadochokinesia on RUE) Additional Documentation: R LE, R UE, rapid alternating movements RUE coordination: impaired RLE coordination: impaired Rapid Alternating Movements: RUE and RLE impaired. Vision Muscle Tone Muscle Tone Assessment Muscle Tone Assessment: right-sided extremities Right-Side Extremities Muscle Tone Assessment: hypertonic (Pt with RUE adn RLE spasticity w ith passive and active movement) STG GOALS [place] Level: independent Time to Achieve: 2 days Goal Status: continued Transfer Training Goal, Activity Type: bed to chair /chair to bed, sit to stand/stand to si t [place] Level: modified independence Assistive Device: 2 wheeled walker (FWW) Time to Achieve: 2 days Goal Status: progressing toward goal Gait Training Goal, [place] Level: modified independence Assistive Device: 2 wheeled walker (FWW) Distance: 150 feet Time to Achieve: 2 days Goal Status: progressing toward goal FIM: FIM Transfers Bed/Chair/Wheelchair: 1 Bed/Chair/WC Score Evidence: 1 Two Helpers FIM Locomotion Walk: 1 Distance Walked (feet): 2 feet Walk Score Evidence: 1 Walks <50 ft FIM Modifier DC Locomotion: both FIM Modifier Walk Distance: 1 <50 feet Wheelchair: 0 FIM Modifier WC Distance: 0 did not occur Stairs: 0 Stairs Score Evidence: 0 Did Not Occur Assessment: Pt limited in mobility primarily by pain, spasticity, and LE weakness. He was able to stand at EOB with 2 person assist and Min A using 2WW. Pt unable to fully extend kn ees in standing and therefore stands and ambulates in a crouched position. 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 His spasticity is g reatly impacting his ability to safely ambulate at this time and therefore he was instructed to call for assistance with mobility. Pt acknowledged undersanding. Based on pt reports o f multiple home falls with injury, prior stroke with spasticity, weakness, patient is a good candidate for IPR, however this PT suggested rehab and pt was interested but was concerned about his having to drive over from [place] in poor weather. Pt was informed that a Human Resource Statistician could speak to him more on this. Will continue to assess more as patient able to participate more. Pt will benefit from skilled physical therapy to increase balance, str ength, and functional mobility to improve strength and independence. Physical Therapy Anticipated Discharge Needs are: (Difficult to assess at this time. Will continue to assess) Have the anticipated discharge needs changed? no Post discharge physical therapy recommendation: TBD Plan for next treatment: 3E; daily; RL; 2WW; bed mobility; transfer training; gait training Tinetti LAISHA; LE strengthening; balance training Electronically signed by: Hector Davila PT, 07/04/2016 12:30 lan of Care - Mary Alcantara RN - 07/04/2016 7:58 AM PDTProblem: Patient Care Overview (Adult) Goal: Care Team Goals & Evaluation PROBLEM-RELATED GOALS: 1. Pt will ambulate to bathroom by 07/06/16 2. Pt will void within 6 hours of arriving to floor 07/03/16 3. Pt will tolerate a general diet by 07/04/16 4. Pt will have no new numbness or tingling by 07/06/16 5. Pt will be modified independent in hallway by 07/10/16. 6. Will maintain adequate oxygenation via oximetry with SpO2 >92% by 07/10/16. 7. Will maintain a patent airway and effective airway clearance by 07/10/16. STRATEGY TO ACHIEVE GOALS: Encourage to ambulate when safe. Encourage pt to drink fluids and voiding. Advance diet slowly. Perform neuro assessment for muscle strengths and sensation. -Pt will participate in PT activities. -Pt will sit up in chair for all meals. - Monitor saturations via oximetry every shift and titrate to order as indicated. - Perform airway clearance using incentive spirometer therapy. RESTRAINT-RELATED GOALS: STRATEGIES TO ACHIEVE RESTRAINT GOALS: Outcome: Unchanged Goal Evaluation: Pt sleeping off and on throughout the night. Pain managed with 5mg oxy at a time. Denies n ausea. CMS intact. Strong concrete bucket hooker, strong dorsi/plant on LLE, mod dorsi/plant on R. MS 5/5 BUE , LLE, 4/5 RLE. Pt unable to void, denies urge to void. Bladder scan of 449cc, straight cath x1 per orders with 45Occ ramu urine returned last HS. Pt has been unable to void after str aight cath, denies urge, bladder scan in 100s. WCTM. C LSO brace. Bed alarm in place. lan of Care - Silvia Velez RRT - 07/04/2016 1:24 AM PDTProblem: Patient Care Overview (Adult) Goal: Care Team Goals & Evaluation PROBLEM-RELATED GOALS: 1. Pt will ambulate to bathroom by 07/06/16 2. Pt will void within 6 hours of arriving to floor 07/03/16 3. Pt will tolerate a general diet by 07/04/16 4. Pt will have no new numbness or tingling by 07/06/16 5. Pt will be modified independent in hallway by 07/10/16. 6. Will maintain adequate oxygenation via oximetry with SpO2 >92% by 07/10/16. 7. Will maintain a patent airway and effective airway clearance by 07/10/16. STRATEGY TO ACHIEVE GOALS: Encourage to ambulate when safe. Encourage pt to drink fluids and voiding. Advance diet slowly. Perform neuro assessment for muscle strengths and sensation. -Pt will participate in PT activities. -Pt will sit up in chair for all meals. - Monitor saturations via oximetry every shift and titrate to order as indicated. - Perform airway clearance using incentive spirometer therapy. RESTRAINT-RELATED GOALS: STRATEGIES TO ACHIEVE RESTRAINT GOALS: Goal Evaluation: Kevin has not been available to do the incentive spirometer, and still needs instruction. It is in the room. SpO2: 96 % on 3 (decreased to 2 lpm)liters/minute nasal cannula, BS jasmina srivastava lan of Care - Rula West RN - 07/03/2016 6:30 PM PDTProblem: Patient Care Overview (Adult) Goal: Care Team Goals & Evaluation PROBLEM-RELATED GOALS: 1. Pt will ambulate to bathroom by 07/06/16 2. Pt will void within 6 hours of arriving to floor 07/03/16 3. Pt will tolerate a general diet by 07/04/16 4. Pt will have no new numbness or tingling by 07/06/16 5. Pt will be modified independent in hallway by 07/10/16. STRATEGY TO ACHIEVE GOALS: Encourage to ambulate when safe. Encourage pt to drink fluids and voiding. Advance diet slowly. Perform neuro assessment for muscle strengths and sensation. -Pt will participate in PT activities. -Pt will sit up in chair for all meals. RESTRAINT-RELATED GOALS: STRATEGIES TO ACHIEVE RESTRAINT GOALS: Outcome: Improving Goal Evaluation: Pt arrived to the floor very drowsy, falling asleep while trying to perform task. Pt denie s numbness and tingling in upper and lower extremities. Pt seems restless when awake, not fo llowing precautions, he is wearing LSO C brace. Pt has stiffness in R upper and lower extrem ities. Dorsi and plantar on R are mod and Strong on L. lan of Care - Hector Davila, PT - 07/03/2016 6:19 PM PDT Problem: Patient Care Overview (Adult) Goal: Care Team Goals & Evaluation PROBLEM-RELATED GOALS: 1. Pt will ambulate to bathroom by 07/06/16 2. Pt will void within 6 hours of arriving to floor 07/03/16 3. Pt will tolerate a general diet by 07/04/16 4. Pt will have no new numbness or tingling by 07/06/16 5. Pt will be modified independent in hallway by 07/10/16. STRATEGY TO ACHIEVE GOALS: Encourage to ambulate when safe. Encourage pt to drink fluids and voiding. Advance diet slowly. Perform neuro assessment for muscle strengths and sensation. -Pt will participate in PT activities. -Pt will sit up in chair for all meals. RESTRAINT-RELATED GOALS: STRATEGIES TO ACHIEVE RESTRAINT GOALS: Outcome: Unchanged Physical Therapy Acute Initial Evaluation Note Patient Information Patient Name: Kevin Aleman Sr. Date of : 1945 Age: 70 y.o. History No diagnosis found. 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 is a 70 y.o. who presents to therapy for back and right hip pain. Pt is now s/p L2-4 LAIF; L4-L5 TLIF; L2-L5 posterio r instrumentation. PT Diagnosis: Impaired mobility Impairments Found: arousal, attention, and cognition, ergonomics and body mechanics, gait, locomotion, and balance Previous Level of Function: Transferring: independent Ambulation: independent (uses a cane) Toileting: independent Bathing: independent Dressing: independent Eating: independent Communication: understands/communicates without difficulty Swallowin-->swallows foods/liquids without difficulty Equipment Currently Used at Home: cane, straight, single point Prior Functional Level Comment: hx cva with right leg weakness Role/Relationships: Spouse Living Environment/Accessibility: manufactured home. No concerns Patient s Goals: None stated OBJECTIVE : Patient Status/Goals: Reflects last filed data of patient status; may be from multiple contributors. Gait NT. Pt very drowsy and not following commands consistently adn therefore deemed unsafe for transfers or gait Transfers NT. Pt very drowsy and not following commands consistently adn therefore deemed unsafe for transfers or gait Bed Mobility Assistive Device: bed rails, HOB elevated Roll Left, Level of [place]: contact guard assist Supine to Sit, Level of [place]: minimum assist (75% patient effort) (Assist with trun k to upright) Sit to Supine, Level of [place]: minimum assist (75% patient effort) (assist with LE) Safety Issues: decreased use of legs for bridging/pushing Impairments: decreased flexibility, strength decreased, impaired balance, pain Balance Sitting Balance: Static: fair balance Sitting Balance: Dynamic: fair balance ROM ROM Testing Results: no range of motion deficits identified Strength L LE Strength: Grossly 4/5 R LE Strength: grossly 3+/5 STG GOALS [place] Level: independent Time to Achieve: 2 days Goal Status: new Transfer Training Goal, Activity Type: bed to chair /chair to bed, sit to stand/stand to si t [place] Level: modified independence Assistive Device: 2 wheeled walker (FWW) Time to Achieve: 2 days Goal Status: new Gait Training Goal, [place] Level: modified independence Assistive Device: 2 wheeled walker (FWW) Distance: 150 feet Time to Achieve: 2 days Goal Status: new Assessment: Physical therapy orders received and acknowledged. Objective impairments inclu de impaired balance; decreased strength; decreased activity tolerance. These impairments are causing functional limitations with patient s inability to mobilize in a manner safe for home discharge. Complexities contributing to the need for skilled therapy include recent paula k surgery. Rehabilitation potential: Patient demonstrates good potential to achieve established goals to address the documented impairments by participating in skilled physical therapy services . PLAN: balance training, bed mobility training, gait training, strengthening, transfer training, p atient/family education Physical Therapy will follow Kevin Aleman Sr. daily until discharge from therapy or di scharged from the hospital. Anticipated days that therapy will be provided: 07/10/16 Physical Therapy Anticipated Discharge Needs: Ongoing PT services required. DC disposition TBD. Post discharge physical therapy recommendation: TBD Equipment Recommendations: 2 wheeled walker (FWW) Patient and/or family has indicated understanding of treatment needs and actively participa marina in the creation of this plan for care. Today's Treatment Start Time: 1720 Stop time: 1740 Time Calculation: 20 minutes Missed Treatment Time: 0 minutes Total Treatment Time: 20 minutes TimedTreatment Code Minutes: 0 minutes Objective: Treatment Provided: PT evaluation initiated; bed mobility with cues for safety and techniqu e. Education: PT plan of care, role of PT. Assessment: Pt mobility greatly limited by severe drowsiness and inconsistent command follo wing. Pt not safe at this time to assess gait and therefore he was returned to bed supine w ith all needs in reach and RN (Luis Enrique) aware. Pt yuni to mobilize in bed and sit edge of bed w ith assistance, however he demonstrates only fair balance and dozed off in sitting and had t o be redirected to stay on task. Pt will benefit from skilled physical therapy to increase balance, strength, and activity tolerance to improve safety and independence. At this time patient is not safe to ambulate in room and he was instructed to call for assistance. Plan for next treatment: 3E; daily; RL; 2WW; bed mobility; transfer traiing; gait training ; LE strengthening; balance training Electronically signed by: Hector Davila, PT, 07/03/2016 18:12 p Note - Pauly Schmidt MD - 07/03/2016 2:20 PM PDTFormatting of this note might be different from the orig inal. Operative Note Kevin Aleman Sr. 70 y.o. male 1945 [id number] Proc. 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 Minimally invasive lumbar fusion via anterior and posterior approaches 2. Anterior lumbar interbody arthrodesis L2-3, L3-4 and L4-5 3. Posterolateral lumbar arthrodesis L2-3, L3-4, L4-5 4. Posterior spinal instrumentation L2-L5 with use of Precept 5. Placement of PEEK interbody spacer L2-3, L3-4, L4-5 6. Microsurgical technique with use of operating microscope 7. Intraoperative fluoroscopy for spinal instrumentation Anesthesia , Dr. Bill Surgeon William Schmidt MD - Primary Manager Revenue Maximo Sandoval PA-C EBL 154 Findings Very soft bone. C bracing. Complications none Specimens * No specimens in log * Drains None Operative details: After obtaining consent, the patient was taken to the operating room and placed under gener al anesthesia. He was then positioned in a lateral position with the left side up. He was co nnected to the neuromonitoring system and secured to the bed with tape. His face, neck, ches t and extremities positioned and padded appropriately. His flank was prepped and draped in standard fashion and a timeout was performed. All members of the surgical team agreed with the timeout. Fluoroscopy was then used to localize the levels of L2-L5 on lateral fluoroscopy, and a ski n incision was made in the left lateral flank approximately 3 cm in length. Subcutaneous tis sues were dissected with bovie and blunt dissection to the abdominal wall. The musculature w as divided with tonsils and then finger sweeping was used to develop the retroperitoneal spa ce. An initial dilator was then inserted onto the surface of the psoas at L4-5 and neuromoni toring was performed. The nerves were identified posteriorly at 20. Sequential dilatation an d monitor was performed and then a retractor was inserted over the dilators. The light [facility] es were connected and the area was inspected visually and with a ball tip neuro probe. No ne rves were identified. The johan was then inserted into the posterior blade, and the retractor was opened anteriorly. The disc at L4-5 was then removed in a piecemeal fashion by first incising it and then usin g Moi, broaches, curretes, and pituitary rongeurs. The endplates were prepared for arthrod esis. Trials were then inserted and a 10 degree by 10 by 26 by 55 mm spacer was determined t o be the appropriate size. A PEEK spacer was prepared filling it with Lesia/Osteocel and then tamping it into the interspace at L4-5. The retractor was then removed obtaining hemost asis along the tract. An initial dilator was then inserted onto the surface of the psoas at L3-4 and neuromonitor ing was performed. The nerves were identified posteriorly at >20. Sequential dilatation and monitor was performed and then a retractor was inserted over the dilators. The light sources were connected and the area was inspected visually and with a ball tip neuro probe. No nerv es were identified. The johan was then inserted into the posterior blade, and the retractor w as opened anteriorly. The disc at L3-4 was then removed in similar, piecemeal fashion by first incising it and th en using Moi, broaches, curretes, and pituitary rongeurs. The endplates were prepared for arthrodesis. Trials were then inserted and a 15 degree by 10 by 22 by 50 mm spacer was deter mined to be the appropriate size. A PEEK spacer was prepared filling it with Lesia/Osteoce l and then tamping it into the interspace at L3-4. The retractor was then removed obtaining hemostasis along the tract. An initial dilator was then inserted onto the surface of the psoas at L2-3 and neuromonitor ing was performed. The nerves were identified posteriorly at >20. Sequential dilatation and monitor was performed and then a retractor was inserted over the dilators. The light sources were connected and the area was inspected visually and with a ball tip neuro probe. No nerv es were identified. The johan was then inserted into the posterior blade, and the retractor w as opened anteriorly. The disc at L2-3 was then removed in similar, piecemeal fashion by first incising it and th en using Moi, broaches, curretes, and pituitary rongeurs. The endplates were prepared for arthrodesis. Trials were then inserted and a 15 degree by 10 by 22 by 55 mm spacer was deter mined to be the appropriate size. A PEEK spacer was prepared filling it with Wagoner/Osteoce l and then tamping it into the interspace at L2-3. The retractor was then removed obtaining hemostasis along the tract. The fascia was then closed with 0 Vicryl sutures, followed by closure of the skin with two layers of 2-0 Quill-type sutures followed by closure of the skin with skin glue. The wound w as dressed with steristrips and a Band-Aid. This completed the anterior portion of the proc edure He was then positioned in a prone position on the Chris axis table with his face, neck, c hest and extremities positioned and padded appropriately. His back was prepped and draped in standard fashion and a timeout was performed. All members of the surgical team agreed with the timeout. The posterior portion commenced. Fluoroscopy was then used to localize the level of L2-L5 on lateral fluoroscopy, and then 2 skin incisions were made approximately 5 cm in length, approximately 3.75 cm off the midlin e in a paramedian fashion on both sides. Subcutaneous tissues were made hemostatic with Bovi e cautery. Pedicle cannulas were then guided into pedicles at L2, L3, L4, and L5 using AP f luoroscopic guidance and lateral confirmation. There were no breaches to the canal or the p edicles. Bone marrow was aspirated in the pedicles and then the cannulas were removed after cannulating them with K-wires. The wires were secured to the drape. Working between the wires starting on the patient's left side, a METRx tube was docked down on the L2-3, L3-4, L4-5 lamina facet complexes. Bovie cautery was used to expose the sandro a of L2, L3, L4, and L5 and the L2-3, L3-4, and L4-5 facets. High-speed drill was used to d ecorticate the exposed bone, and then morselized local bone autograft obtained from the dril ling and cancellous chips/Wagoner with bone marrow aspirate were packed in the posterolatera l aspect of the spine along the decorticated bone. This completed the posterolateral fusion from L2-L5. The previously placed wires were then used for placement of instrumentation. The pedicles were undertapped and then instrumented. 6.5 x 55 mm Precept screws were inserted at L2 and L3. 7.5 x 55 mm screws were inserted at L4. Cement was placed into the L5 body down the ta pped pedicle holes to support the L4-5 screws and improve screw strength. 7.5 x 55 mm screw s were then inserted at L5. The screw towers were aligned, and then a 80 and 90 mm charo was passed through the towers and successfully reduced down right and left respectively. Set sc rews were inserted and then final tightening of the set screws was performed. Then the towe rs and charo passer were removed fully. Final fluoroscopic images confirmed appropriate placem ent of instrumentation. 20 mL of exparel was infiltrated into the paraspinous muscles. The fascia was then closed bilaterally with 0 Vicryl sutures, followed by closure of the sk in with two layers of 2-0 Quill-type sutures. Then 20 mL of 0.5% Marcaine with epinephrine w as infiltrated in the back followed by closure of the skin with skin glue. The wounds were d ressed with steristrips/Band-Aids. All counts were reported as correct. The patient tolerated the procedure and was transferr ed to the recovery room in stable condition. Electronically signed by: William Schmidt MD 07/03/2016 14:18 [facility] rief Op Note - Rajesh Schmidt MD - 07/03/2016 2:18 PM PDTFormatting of this note might be different from the origin al. Brief Operative Note Kevin Aleman Sr. 70 y.o. male 1945 [id number] Proc. 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 Minimally invasive lumbar fusion via anterior and posterior approaches 2. Anterior lumbar interbody arthrodesis L2-3, L3-4 and L4-5 3. Posterolateral lumbar arthrodesis L2-3, L3-4, L4-5 4. Posterior spinal instrumentation L2-L5 with use of Precept 5. Placement of PEEK interbody spacer L2-3, L3-4, L4-5 6. Microsurgical technique with use of operating microscope 7. Intraoperative fluoroscopy for spinal instrumentation Anesthesia General, Dr. Bill Surgeon William Schmidt MD - Primary Manager Revenue Maximo Sandoval PA-C EBL 154 Findings Very soft bone. C bracing. Complications none Specimens * No specimens in log * Drains None Electronically signed by: William Schmidt MD 07/03/2016 14:18 [facility] by William Schmidt MD at 016 2:20 PM PDTPlan of Care - Sriram Vogel Chaplain - 07/03/2016 11:22 AM PDTProblem: Patient Care Overview (Adult) Goal: Care Team Goals & Evaluation PROBLEM-RELATED GOALS: STRATEGY TO ACHIEVE GOALS: RESTRAINT-RELATED GOALS: STRATEGIES TO ACHIEVE RESTRAINT GOALS: Spiritual Care Kevin Aleman . is a 70 y.o. male who is admitted for Postural kyphosis of thoracolum [facility] [M40.05]. Curriculum And Instruction Specialist visit is in response to an electronic spiritual care consult request. Spiritual Evaluation: Patient was resting comfortably in bed; he appeared to be in good spirits and was calm and pleasant during our visit. He was attended by his , Delilah, who sat at the bedside and wa s very attentive and supportive. He is a spiritual man, but has no affiliation with any [facility] or jessica group. He maintains a personal jessica in God and welcomed prayer. He h as met with Dr. Schmidt, trusts him, and feels secure in his care. Spiritual Interventions: I offered supportive listening, words of encouragement, and pre-surgery prayer. Spiritual Outcomes: Kevin expressed appreciation for the visit and prayer, and seemed at peace about the surgi awa procedure. Spiritual Goals/Follow-up: Follow up with regular post-surgery visit, emotional and spiritual support. documented in this encounter Plan of Treatment Not on filedocumented as of this encounter Procedures + +--------+ + + + | Procedure Name | Priori | Date/Time | Associated Diagnosis | Comments | | | ty | | | | + +--------+ + + + | XR LUMBAR SPINE 2 OR | STAT | 07/03/2016 | | Results for this | | 3 VW | | 4:02 PM | | procedure are in the | | | | PDT | | results section. | + +--------+ + + + | FL DILLON STATS NO | Routin | 07/03/2016 | | Results for this | | CHARGE | e | 2:03 PM | | procedure are in the | | | | PDT | | results section. | + +--------+ + + + | FUSION LUMBAR W/ | | 07/03/2016 | Postural kyphosis | | | LATERAL APPROACH | | 10:22 AM | of thoracolumbar | | | (XLIF) | | PDT | region | | + +--------+ + + + +---+--------+ | | Case | | | Notes | | | | | | Origin | | | al | | | Schedu | | | ler | | | Commen | | | ts/Not | | | es | | | Sent | | | Over | | | 05/24/ | | | 2015 @ | | | | | | 1452:N | | | EUROVI | | | JOSE, | | | C-ARM, | | | | | | DRILL, | | | | | | MICROS | | | COPE, | | | METRX, | | | XLIF, | | | | | | PRECEP | | | T, | | | DECADE | | | , BMP, | | | | | | CHIPS, | | | | | | JACKSO | | | N AXIS | | | | | | FRAMEE | | | STIMAT | | | ED | | | TIME: | | | 3 | | | HOURSS | | | ALEKS: | | | RIGHT | +---+--------+ | | | | | Specia | | | l | | | Needs | | | Harley | | | (Nuvas | | | song) | | | - | | | Decade | | | , | | | XLIF, | | | Precep | | | t | +---+--------+ + +--------+ +---+ + | PTT | Routin | 07/03/2016 | | Results for this | | | e | 9:12 AM | | procedure are in the | | | | PDT | | results section. | + +--------+ +---+ + | PROTIME INR | Routin | 07/03/2016 | | Results for this | | | e | 9:12 AM | | procedure are in the | | | | PDT | | results section. | + +--------+ +---+ + documented in this encounter Results XR Lumbar Spine 2 or 3 Vw (07/03/2016 4:02 PM PDT) + + | Specimen | + + | | + + + + + | Narrative | Performed At | + + + | EXAM:XR LUMBAR SPINE 2 OR 3 VW CLINICAL HISTORY: post op | [facility] | | COMPARISON: Preoperative study dated September 25, 2015 FINDINGS: | | | Frontal and lateral views of the lumbar spine. Posterior and | | | interbody fusion changes are present from L2 through L5. The | | | hardware is intact. In place interbody grafts improving disc | | | spacing and spinal alignment. Mild subsidence of the L5 grafts into | | | the superior endplate. Hyperattenuating material along the | | | transpedicular screws at L5 may represent methylmethacrylate. | | | Expected operative changes in the soft tissues. IMPRESSION - | | | Interval posterior and interbody fusion changes at L2-L5. Dictated | | | and Signed by: Saji Waldron MD Electronically signed: | | | 07/03/2016 4:45 PM | | + + + + + | Procedure Note | + + | Emre, Rad Results In - 07/03/2016 4:48 PM PDT EXAM:XR LUMBAR SPINE 2 OR 3 VW | | | | CLINICAL HISTORY: post op | | | | COMPARISON: Preoperative study dated September 25, 2015 | | | | FINDINGS: Frontal and lateral views of the lumbar spine. Posterior and | | interbody fusion changes are present from L2 through L5. The hardware is | | intact. In place interbody grafts improving disc spacing and spinal alignment. | | Mild subsidence of the L5 grafts into the superior endplate. Hyperattenuating | | material along the transpedicular screws at L5 may represent methylmethacrylate. | | Expected operative changes in the soft tissues. | | | | IMPRESSION - | | | | Interval posterior and interbody fusion changes at L2-L5. | | | | Dictated and Signed by: Saji Waldron MD | | Electronically signed: 07/03/2016 4:45 PM | + + + +---------+ + + | Performing | Address | City/State/Zipcode | Phone Number | | Organization | | | | + +---------+ + + | [facility] | | | | + +---------+ + + ML Norton-Polo Maldonado No Charge (07/03/2016 2:03 PM PDT) + + | Specimen | + + | | + + + + + | Narrative | Performed At | + + + | No Radiologist interpretation, please see Chart Review. | [facility] | + + + + +---------+ + + | Performing | Address | City/State/Zipcode | Phone Number | | Organization | | | | + +---------+ + + | [facility] | | | | + +---------+ + + PTT (07/03/2016 9:12 AM PDT) + +-------+ + + + | Component | Value | Ref Range | Performed | Pathologist | | | | | At | Signature | + +-------+ + + + | aPTT | 34 | 22 - 36 seconds | [facility] | | | | | | [facility] | | | | | | [facility] | | | | | | C[facility] - | | | | | | LABORATORY | | + +-------+ + + + + + | Specimen | + + | Blood | + + + + + + + | Performing | Address | City/State/Zipcode | Phone Number | | Organization | | | | + + + + + | [facility] | [address] | [place] | [phone] | | [facility] | | [address] | | | - LABORATORY | | | | + + + + + Protime INR (07/03/2016 9:12 AM PDT) + + + + + + | Component | Value | Ref Range | Performed | Pathologist | | | | | At | Signature | + + + + + + | Prothrombin | 13.7 | 11.3 - 13.9 | [facility] | | | Time | | seconds | [facility] | | | | | | MEDICAL | | | | | | CENTER - | | | | | | LABORATORY | | + + + + + + | INR | 1.03Comment: Usual Oral | 0.90 - 1.10 | [facility] | | | | Anticoagulation Range: | | [facility] | | | | 2.0 - 3.0High | | MEDICAL | | | | Level Oral | | CENTER - | | | | Anticoagulation Range: | | LABORATORY | | | | 2.5 - 3.5 | | | | + + + + + + + + | Specimen | + + | Blood | + + + + + + + | Performing | Address | City/State/Zipcode | Phone Number | | Organization | | | | + + + + + | [facility] | [address] | [place] | [phone] | | [facility] | | [address] | | | - LABORATORY | | | | + + + + + documented in this encounter Visit Diagnoses + + | Diagnosis | + + | Gait abnormality - Primary Abnormality of gait | + + documented in this encounter Administered Medications + +--------+---------+------+------+------+ | Medication Order | MAR | Action | Dose | Rate | Site | | | Action | Date | | | | + +--------+---------+------+------+------+ + +---+ | albuterol 2.5 mg/3 mL nebulizer | | | solution 2.5 mg 2.5 mg, | | | Nebulization, RT EVERY 4 HOURS | | | PRN, Shortness of Breath, | | | Starting 07/05/16 at 1605, RT | | | will administer., | | + +---+ | | | + +---+ + +-------+ +-------+---+---+ | atorvaSTATin (LIPITOR) tablet | Given | 07/05/20 | 40 mg | | | | 40 mg 40 mg, Oral, NIGHTLY, | | 16 8:57 | | | | | First dose on Fri07/03/16 at | | PM PDT | | | | | 2100, Post-op/Phase II | | | | | | + +-------+ +-------+---+---+ +-------+ +-------+---+---+ | Given | 07/04/20 | 40 mg | | | | | 16 8:25 | | | | | | PM PDT | | | | +-------+ +-------+---+---+ | Given | 07/03/20 | 40 mg | | | | | 16 8:48 | | | | | | PM PDT | | | | +-------+ +-------+---+---+ +---+---+ | | | +---+---+ + +-------+ + +---+---+ | calcium carbonate (TUMS) | Given | 07/05/20 | 1,000 mg | | | | chewable tablet 1,000 mg 1,000 | | 16 2:50 | | | | | mg, Oral, EVERY 2 HOURS PRN, | | AM PDT | | | | | Indigestion, Starting Fri | | | | | | | 07/03/16 at 1615, Post-op/Phase | | | | | | | II | | | | | | + +-------+ + +---+---+ +---+---+ | | | +---+---+ + +---------+ +-----+-------+---+ | ceFAZolin (ANCEF, KEFZOL) 2 g | New Bag | 07/04/20 | 2 g | 100 | | | in sodium chloride 0.9% 50 mL | | 16 2:17 | | mL/hr | | | IVPB 2 g, Intravenous, | | AM PDT | | | | | Administer over 30 Minutes, EVERY | | | | | | | 8 HOURS INTERVAL, First dose on | | | | | | | 07/03/16 at 1900, For 2 | | | | | | | doses, Start 8 hours after | | | | | | | previous dose. Last dose to be | | | | | | | given within 24 hours of surgery | | | | | | | end time., Post-op/Phase II, | | | | | | | Indications: Surgical Prophylaxis | | | | | | + +---------+ +-----+-------+---+ +---------+ +-----+-------+---+ | New Bag | 07/03/20 | 2 g | 100 | | | | 16 6:45 | | mL/hr | | | | PM PDT | | | | +---------+ +-----+-------+---+ +---+---+ | | | +---+---+ + +-------+ +-------+---+---+ | citalopram (celeXA) tablet 40 | Given | 07/06/20 | 40 mg | | | | mg 40 mg, Oral, DAILY, First | | 16 9:07 | | | | | dose on Fri07/05/16 at 0900 | | AM PDT | | | | + +-------+ +-------+---+---+ +-------+ +-------+---+---+ | Given | 07/05/20 | 40 mg | | | | | 16 8:12 | | | | | | AM PDT | | | | +-------+ +-------+---+---+ +---+---+ | | | +---+---+ + +-------+ +-------+---+---+ | cyclobenzaprine (FLEXERIL) | Given | 07/06/20 | 10 mg | | | | tablet 10 mg 10 mg, Oral, EVERY | | 16 9:23 | | | | | 8 HOURS PRN, Muscle spasms, | | AM PDT | | | | | Starting Fri07/03/16 at 1615, | | | | | | | Use if methocarbamol ineffective | | | | | | | or not ordered., Post-op/Phase II | | | | | | + +-------+ +-------+---+---+ +-------+ +-------+---+---+ | Given | 07/04/20 | 10 mg | | | | | 16 3:25 | | | | | | PM PDT | | | | +-------+ +-------+---+---+ | Given | 07/03/20 | 10 mg | | | | | 16 8:48 | | | | | | PM PDT | | | | +-------+ +-------+---+---+ + +---+ | | | + +---+ | diphenhydrAMINE (BENADRYL) 12.5 | | | mg/5 mL liquid 25 mg 25 mg, | | | Oral, EVERY 4 HOURS PRN, Itching, | | | Starting Fri07/03/16 at 1615, | | | Oral route is preferred., | | | Post-op/Phase II | | + +---+ | | | + +---+ | diphenhydrAMINE (BENADRYL) | | | injection 12.5 mg 12.5 mg, | | | Intravenous, EVERY 4 HOURS PRN, | | | Itching, Starting 07/03/16 at | | | 1615, Oral route is preferred., | | | Post-op/Phase II | | + +---+ | | | + +---+ + +-------+ +-------+---+---+ | diphenhydrAMINE (BENADRYL) | Given | 07/04/20 | 25 mg | | | | tablet 25 mg 25 mg, Oral, EVERY | | 16 3:37 | | | | | 4 HOURS PRN, Itching, Starting | | AM PDT | | | | | 07/03/16 at 1615, Oral route | | | | | | | is preferred., Post-op/Phase II | | | | | | + +-------+ +-------+---+---+ +---+---+ | | | +---+---+ + +-------+ +--------+---+---+ | docusate sodium (COLACE) | Given | 07/06/20 | 100 mg | | | | capsule 100 mg 100 mg, Oral, 2 | | 16 9:06 | | | | | TIMES DAILY PRN, Constipation, | | AM PDT | | | | | Starting 07/03/16 at 1615, | | | | | | | First line agent for | | | | | | | constipation, Post-op/Phase II | | | | | | + +-------+ +--------+---+---+ +-------+ +--------+---+---+ | Given | 07/05/20 | 100 mg | | | | | 16 8:12 | | | | | | AM PDT | | | | +-------+ +--------+---+---+ | Given | 07/04/20 | 100 mg | | | | | 16 8:35 | | | | | | AM PDT | | | | +-------+ +--------+---+---+ +---+---+ | | | +---+---+ + +-------+ +-------+---+ + | enoxaparin (LOVENOX) 40 mg/0.4 | Given | 07/06/20 | 40 mg | | Abdomen- | | mL injection 40 mg 40 mg, | | 16 9:07 | | | LLQ | | Subcutaneous, EVERY 24 HOURS | | AM PDT | | | | | (Daily), First dose on Sat | | | | | | | 07/06/16 at 0900 | | | | | | + +-------+ +-------+---+ + +---+---+ | | | +---+---+ + +-------+ +------+---+---+ | finasteride (PROSCAR) tablet 5 | Given | 07/06/20 | 5 mg | | | | mg 5 mg, Oral, DAILY, First dose | | 16 9:07 | | | | | on Fri07/03/16 at 1645, | | AM PDT | | | | | Reproductive Risk: Use | | | | | | | appropriate handling | | | | | | | precautions., Post-op/Phase II | | | | | | + +-------+ +------+---+---+ +-------+ +------+---+---+ | Given | 07/05/20 | 5 mg | | | | | 16 8:12 | | | | | | AM PDT | | | | +-------+ +------+---+---+ | Given | 07/04/20 | 5 mg | | | | | 16 8:35 | | | | | | AM PDT | | | | +-------+ +------+---+---+ +---+---+ | | | +---+---+ + +-------+ +---------+---+---+ | HYDROmorphone (DILAUDID) | Given | 07/03/20 | 0.25 mg | | | | injection 0.2-0.5 mg 0.2-0.5 mg, | | 16 3:18 | | | | | Intravenous, EVERY 5 MIN PRN, | | PM PDT | | | | | Pain, Starting 07/03/16 at | | | | | | | 1401, Maximum total dose 4 mg. | | | | | | | PACU IV Narcotic Priority: Only | | | | | | | use fentanyl for immediate | | | | | | | post-op pain (one dose) or | | | | | | | breakthrough pain when any other | | | | | | | IV narcotics ordered have been | | | | | | | ineffective (if ordered). If | | | | | | | both morphine and hydromorphone | | | | | | | are ordered, use morphine first, | | | | | | | and use hydromporphone if | | | | | | | morphine ineffective., | | | | | | | Recovery/Phase I | | | | | | + +-------+ +---------+---+---+ +-------+ +---------+---+---+ | Given | 07/03/20 | 0.25 mg | | | | | 16 3:13 | | | | | | PM PDT | | | | +-------+ +---------+---+---+ | Given | 07/03/20 | 0.25 mg | | | | | 16 3:05 | | | | | | PM PDT | | | | +-------+ +---------+---+---+ +---+---+ | | | +---+---+ + +---------+ +---+---+---+ | lactated ringers (LR) infusion | New Bag | 07/03/20 | | | | | at 100 mL/hr, Intravenous, | | 16 11:40 | | | | | CONTINUOUS, Starting 07/03/16 | | AM PDT | | | | | at 0915, Pre-op | | | | | | + +---------+ +---+---+---+ +---------+ +---+---+---+ | New Bag | 07/03/20 | | | | | | 16 9:37 | | | | | | AM PDT | | | | +---------+ +---+---+---+ +---+---+ | | | +---+---+ + +-------+ +-------+---+---+ | losartan (COZAAR) tablet 50 mg | Given | 07/06/20 | 50 mg | | | | 50 mg, Oral, DAILY, First dose | | 16 9:07 | | | | | on 07/03/16 at 1645, | | AM PDT | | | | | Post-op/Phase II | | | | | | + +-------+ +-------+---+---+ +-------+ +-------+---+---+ | Given | 07/05/20 | 50 mg | | | | | 16 8:12 | | | | | | AM PDT | | | | +-------+ +-------+---+---+ | Given | 07/04/20 | 50 mg | | | | | 16 8:35 | | | | | | AM PDT | | | | +-------+ +-------+---+---+ +---+---+ | | | +---+---+ + +---------+ +--------+--------+---+ | methocarbamol (ROBAXIN) 750 mg | New Bag | 07/04/20 | 750 mg | 143.3 | | | in sodium chloride 0.9% 100 mL | | 16 2:52 | | mL/hr | | | IVPB 750 mg, Intravenous, | | AM PDT | | | | | Administer over 45 Minutes, EVERY | | | | | | | 6 HOURS (4 times per day), First | | | | | | | dose on Fri07/03/16 at 1445, | | | | | | | For 3 doses, Post-op/Phase II | | | | | | + +---------+ +--------+--------+---+ +---------+ +--------+--------+---+ | New Bag | 07/03/20 | 750 mg | 143.3 | | | | 16 9:14 | | mL/hr | | | | PM PDT | | | | +---------+ +--------+--------+---+ | New Bag | 07/03/20 | 750 mg | 143.3 | | | | 16 2:56 | | mL/hr | | | | PM PDT | | | | +---------+ +--------+--------+---+ +---+---+ | | | +---+---+ + +-------+ +------+---+---+ | morphine injection 2-4 mg 2-4 | Given | 07/04/20 | 2 mg | | | | mg, Intravenous, EVERY 2 HOURS | | 16 7:28 | | | | | PRN, Pain, Starting 07/03/16 | | PM PDT | | | | | at 1615, If oral route not an | | | | | | | option. Slow IV push, not faster | | | | | | | than 2mg/minute. First dose must | | | | | | | be lowest dose, titrate to | | | | | | | effective dose by repeat of | | | | | | | lowest dose every 30 minutes prn | | | | | | | pain, may not exceed maximum dose | | | | | | | ordered per interval. Use | | | | | | | Pasero Sedation Scale., | | | | | | | Post-op/Phase II | | | | | | + +-------+ +------+---+---+ +-------+ +------+---+---+ | Given | 07/04/20 | 2 mg | | | | | 16 3:23 | | | | | | PM PDT | | | | +-------+ +------+---+---+ | Given | 07/03/20 | 2 mg | | | | | 16 11:22 | | | | | | PM PDT | | | | +-------+ +------+---+---+ +---+---+ | | | +---+---+ + +-------+ +--------+---+---+ | mycophenolate (CELLCEPT) | Given | 07/06/20 | 500 mg | | | | capsule 500 mg 500 mg, Oral, | | 16 9:06 | | | | | EVERY MORNING, First dose on Fri | | AM PDT | | | | | 07/03/16 at 1645, Post-op/Phase | | | | | | | II | | | | | | + +-------+ +--------+---+---+ +-------+ +--------+---+---+ | Given | 07/05/20 | 500 mg | | | | | 16 8:12 | | | | | | AM PDT | | | | +-------+ +--------+---+---+ | Given | 07/04/20 | 500 mg | | | | | 16 8:36 | | | | | | AM PDT | | | | +-------+ +--------+---+---+ +---+---+ | | | +---+---+ + +-------+ +------+---+---+ | oxyCODONE (ROXICODONE) tablet | Given | 07/06/20 | 5 mg | | | | 5-20 mg 5-20 mg, Oral, EVERY 4 | | 16 9:23 | | | | | HOURS PRN, Pain, Starting Wed | | AM PDT | | | | | 07/03/16 at 2354 | | | | | | + +-------+ +------+---+---+ +-------+ +------+---+---+ | Given | 07/06/20 | 5 mg | | | | | 16 12:21 | | | | | | AM PDT | | | | +-------+ +------+---+---+ | Given | 07/05/20 | 5 mg | | | | | 16 3:51 | | | | | | PM PDT | | | | +-------+ +------+---+---+ +---+---+ | | | +---+---+ + +-------+ +-------+---+---+ | pantoprazole (PROTONIX) DR | Given | 07/06/20 | 40 mg | | | | tablet 40 mg 40 mg, Oral, DAILY | | 16 6:32 | | | | | BEFORE BREAKFAST, First dose on | | AM PDT | | | | | 07/03/16 at 1645, Do not cut | | | | | | | or crush. Therapeutic Interchange | | | | | | | for omeprazole., | | | | | | + +-------+ +-------+---+---+ +-------+ +-------+---+---+ | Given | 07/05/20 | 40 mg | | | | | 16 6:31 | | | | | | AM PDT | | | | +-------+ +-------+---+---+ | Given | 07/04/20 | 40 mg | | | | | 16 6:34 | | | | | | AM PDT | | | | +-------+ +-------+---+---+ +---+---+ | | | +---+---+ + +-------+ +--------+---+---+ | senna (SENOKOT) tablet 8.6 mg | Given | 07/06/20 | 8.6 mg | | | | 8.6 mg, Oral, 2 TIMES DAILY PRN, | | 16 9:07 | | | | | Constipation, Starting Wed | | AM PDT | | | | | 07/03/16 at 1615, If docusate | | | | | | | ineffective or not ordered, | | | | | | | Post-op/Phase II | | | | | | + +-------+ +--------+---+---+ +-------+ +--------+---+---+ | Given | 07/05/20 | 8.6 mg | | | | | 16 8:12 | | | | | | AM PDT | | | | +-------+ +--------+---+---+ | Given | 07/04/20 | 8.6 mg | | | | | 16 1:07 | | | | | | AM PDT | | | | +-------+ +--------+---+---+ +---+---+ | | | +---+---+ + +---------+ +---+-------+---+ | sodium chloride 0.9% (NS) | New Bag | 07/06/20 | | 100 | | | infusion at 100 mL/hr, | | 16 6:52 | | mL/hr | | | Intravenous, CONTINUOUS, Starting | | AM PDT | | | | | Radha 07/04/16 at 0800 | | | | | | + +---------+ +---+-------+---+ +---------+ +---+-------+---+ | New Bag | 07/05/20 | | 100 | | | | 16 7:50 | | mL/hr | | | | PM PDT | | | | +---------+ +---+-------+---+ | New Bag | 07/05/20 | | 100 | | | | 16 7:13 | | mL/hr | | | | AM PDT | | | | +---------+ +---+-------+---+ +---+---+ | | | +---+---+ documented in this encounter
--- OUTSIDE RECORDS SUMMARY | ~2020-06-26 | XMS | Encounter Summary ---
Demographics + + + | Address | [address] | | | [place] [address] | + + + | Home Phone | | + + + | Preferred Language | Unknown | + + + | Marital Status | | + + + | Spiritism Affiliation | Unknown | + + + | Race | White | + + + | Ethnic Group | Not or | + + + Author + + + | Author | [facility] | | | and [place] | + + + | Organization | [facility] | | | [...] [place] | | | | | [address] | | + + + + + Care Team Providers + +------+ + | Care Information Resource Consultant Name | Role | Phone | + +------+ + | Almas Licea MD | PCP | | + +------+ + Reason for Visit +--------+--------+ + | Reason | Onset | Comments | | | Date | | +--------+--------+ + | Other | 03/08/ | injection referral | | | 2014 | | +--------+--------+ + Encounter Details +--------+ + + + + | Date | Type | Department | Care Team | Description | +--------+ + + + + | 03/08/ | Telephone | [facility] | Almas Rivera | Filippo (injection | | 2014 | | [address] | MD E[address] | referral) | | | | [address] | [address] | | | | | [place] | [facility] [place] [address] | | | | | [id number] | [phone] | | | | | [phone] | | | +--------+ + + + [...] this encounter Miscellaneous Notes Telephone Encounter - Kandis Cantu Cert MA - 03/27/2015 9:03 AM PDTFor anyone that awa ls about injections, I cannot order any injection without examining the patient to document that they need this expensive procedure. However, he can call Dr. Estrada s office and see if they could set it up directly. mb I called to relay Dr. Rivera's message but I had to leave a voice mail. I will await his p norma call back to relay message. He will need to make a follow up appointment with Dr. Renny adams. elephone [place] unter - Kandis Cantu Cert MA - 03/09/2015 4:20 PM PDTPlease advise message: Patient awa led because he is interested in received antoher injection from Dr. Estrada and would lik e to know if you can place another referral without a office visit. elephone Encounter - Abiola Sutton - 3:07 PM PDTPatient called because he is interested in receiving another injection f rom Dr. Estrada and would like to know if Dr. Rivera can place this referral without ano ther office visit. Please advise. documented in this encounter Plan of Treatment Not on filedocumented as of this encounter Visit Diagnoses Not on filedocumented in this encounter"
--- OUTSIDE RECORDS SUMMARY | ~2020-06-26 | XMS | Encounter Summary ---
Demographics + + + | Address | [address] | | | [place] [address] | + + + | Home Phone | | + + + | Preferred Language | Unknown | + + + | Marital Status | | + + + | Mosque Affiliation | Unknown | + + + | Race | White | + + + | Ethnic Group | Not or | + + + Author + + + | Author | [facility] | | | and [place] | + + + | Organization | [facility] | | [...] [place] | | | | | [address] | | + + + + + Care Team Providers + +------+ + | Care Senior Net Programmer Name | Role | Phone | + +------+ + | Harris Sauceda MD | PCP | | + +------+ + Reason for Visit +--------+--------+ + | Reason | Onset | Comments | | | Date | | +--------+--------+ + | Other | 05/26/ | | | | 2019 | | +--------+--------+ + Encounter Details +--------+ + + + + | Date | Type | Department | Care Team | Description | +--------+ + + + + | 05/26/ | Telephone | [facility] | Sebastian Bill | Other | | 2019 | | ORTHOPEDIC SURGERY | [address] | | | | | [address] | [facility] | | | | | [place] | [place] [address] | | | | | [address] | [phone] | | | | | [phone] | | | +--------+ + + + [...] this encounter Miscellaneous Notes Telephone Encounter - Shefali Torrez CMA - 05/26/2019 1:00 PM PDTPatient called stated he would like to know what he needs to do about dressing change. Patient is status post Right f oot gastrocnemius release,and release of flexor tendons, and release hallucis adductor, an d pinning of right toes DOS 05/19/19. Per Dr. Leach he wanted patient to come in on 9 for dressing change. Patient called and cancelled his appointment and is now calling on at to do. Per Dr Leach patient needs to be seen today for a dressing change. Patient sta marina the papers he received in the hospital stated he could remove the bandages in 3 days. I informed patient that is why he was supposed to come in to the office last week. Patient was very confused. I let patient know it is very important to come to his appointment today. Luis Fernando spain stated understanding. documented in this encounter Plan of Treatment Not on filedocumented as of this encounter Visit Diagnoses Not on filedocumented in this encounter"
--- OUTSIDE RECORDS SUMMARY | ~2020-06-26 | XMS | Encounter Summary ---
Demographics + + + | Address | [address] | | | [place] [address] | + + + | Home Phone | | + + + | Preferred Language | Unknown | + + + | Marital Status | | + + + | Hinduism Affiliation | Unknown | + + + | Race | White | + + + | Ethnic Group | Not or | + + + Author + + + | Author | [facility] | | | and [place] [...] | + + + + + | Willam Hernándeznicholas | ECON | [address] | | | | | [place] | | | | | [address] | | + + + + + Care Team Providers + +------+ + | Care [place] Laborer Name | Role | Phone | + +------+ + | Hraris Sauceda MD | PCP | | + +------+ + Encounter Details +--------+ + + + + | Date | Type | Department | Care Team | Description | +--------+ + + + + | 05/19/ | Hospital | [facility] | Gerardo Leach | Acquired deformity | | 2019 | Encounter | [facility] | MD Gumaro [address] | of right foot; | | | | [address] | [place], [place] | Equinus contracture | | | | [place], [place] | [address] | of ankle | | | | [address] | | | | | | [phone] | | | +--------+ + + + [...] + + + | Blood Pressure | 123/73 | 05/19/2019 2:15 PM | | | | | PDT | | + + + + + | Pulse | 88 | 05/19/2019 2:15 PM | | | | | PDT | | + + + + + | Temperature | 36.3 C (97.3 F) | 05/19/2019 11:52 AM | | | | | PDT | | + + + + + | Respiratory Rate | 16 | 05/19/2019 1:45 PM | | | | | PDT | | + + + + + | Oxygen Saturation | 97% | 05/19/2019 2:15 PM | | | | | PDT | | + + + + + | Inhaled Oxygen | - | - | | | Concentration | | | | + + + + + | Weight | 64 kg (141 lb 1.5 | 05/19/2019 8:52 AM | | | | oz) | PDT | | + + + + + | Height | 167.6 cm (5' 6") | 05/19/2019 8:52 AM | | | | | PDT | | + + + + + | Body Mass Index | 22.77 | 05/19/2019 8:52 AM | | | | | PDT [...] + documented as of this encounter Discharge Instructions Instructions Jeanine Reilly RN - 05/19/2019[facility]. Remove the bandages on the third post op day but leave steri-strips in place. Apply bandai ds to portal wound sites. May get wound wet in shower on third post op day. May shower juan carlos or to this if bandages and wound are protected from water with Saran wrap or something simil ar. Post Operative Care: Use walker for ambulation. Non-wt bearing on right leg x 4 wks Keep bandages and splint in place until your first post operative visit with us next week. Bandages will be changed at this visit. Take one 325mg aspirin daily for the next month for blood thinning therapy Take pain medication as prescribed if prescribed Take one aspirin 325mg daily for blood thinning therapy for next month If you have any questions, comments or concerns please contact our office Do not exceed 4,000 mg of acetaminophen (Tylenol) per day. Hydrocodone-acetaminophen (Shelby ) and Oxycodone-acetaminophen (Percocet) have 325 mg acetaminophen per tablet. Regular stren gth acetaminophen is 325 mg per tablet. Extra strength has 500 mg per tablet. Do not consume alcohol while taking opioid mediations. If constipation arises, try docusate-senna one tablet twice daily; milk of magnesia 30 mL o nce each night; or Miralax one capful (17 grams) dissolved in half a cup of water once daily for 3 days. If constipation does not resolve within 3 days after discharge, contact the jimbo st[facility] office. documented in this encounter Medications at Time of Discharge [...] mouth | 240 mL | 0 | //20 | | | HYDROcodone-acetamin | 4 times [...] + + + +---------+ + + | tamsulosin | Take 0.4 mg by mouth | | 0 | | | | (FLOMAX) 0.4 mg CAPS | nightly. | | | | | + + + +---------+ + + | traZODone | Take 75 mg by mouth | | 0 | | | | (DESYREL) 50 mg | nightly. | | | | | | tablet [...] + + documented as of this encounter H&P Notes Gerardo Leach MD - 05/19/2019 9:32 AM PDTSURGICAL INTERIM HISTORY & PHYSICAL UPDAT E Pt. Name/Age/: Kevin Olvera Sr. 73 y.o. 1945 Date of admission: 05/19/2019 The current H&P was reviewed. The patient was reexamined. Re-evaluation of the patient co nfirms the necessity for the scheduled procedure. No change has occurred in the patient s condition since the H&P was completed less than 30 days ago. VERIFICATION OF CONSENT (PARQ) The patient was counseled regarding the procedure, its indications, risks, potential compli cations and alternatives. Any questions were answered. Consent was obtained. Electronically signed by: [facility]ardo Leach MD, [facility]19/2019 9[facility] Hernandez MD - 05/10/2019 10:45 AM PDT History of present illness: Kevin is a 73 y.o. male who presents to our clinic today for a preop examination. Kevin is scheduled for a right gastrocnemius release, lesser toe flexor tendon release, and abductor hallucis release on 05/19/2019. He sustained a cerebrovascular accident approximately 13 years ago that affected the right side of his body. He has been l eft with some degree of weakness as well as muscle spasm and in particular has experienced c hronic clawing of the lesser toes of his right foot with intermittent pain involving the ins tep of his right foot. His examination has revealed chronic contracture of the gastrosoleus muscle as well as the lesser toe flexors and the abductor hallucis all involving in the rig ht lower extremity and in view of these findings he is felt to be an appropriate surgical ca ndidate for release of these tight tendons. Past Medical History: Diagnosis Date Adverse effect of anesthesia high blood pressure after stomach biopsy Alcoholism ([facility]) Anemia Back pain of thoracolumbar region 08/29/2012 BPH with urinary obstruction Cataract Colonic disorder CVA (cerebral vascular accident) ([facility]) Depression Dysphagia Edema Esophageal reflux Essential hypertension Facet arthritis of lumbar region 02/01/2015 Facial weakness late Cvd effects Foot drop, right foot GERD (gastroesophageal reflux disease) Hiatal hernia High cholesterol History of blood clots HLD (hyperlipidemia) Hypercholesterolemia Idiopathic retroperitoneal fibrosis Involuntary movements Lumbago Other muscle spasm Poor circulation RLS (restless legs syndrome) Spastic hemiplegia affecting right dominant side ([facility]) Stroke ([facility]) right sided weakness Trochanteric bursitis of right hip 02/01/2015 Vitamin B12 deficiency Vitamin D deficiency Past Surgical History: Procedure Laterality Date ABDOMINAL RETROPERITONEAL BIOPSY 2008 ANUS SURGERY Right 2012 lateral internal sphincterectomy CATARACT REMOVAL Bilateral [address] Hudson, Rectal irritation HEMORRHOID [...] GASTROINTESTINAL ENDOSCOPY 07/02/2017 Felix Graham MD VASECTOMY Allergies Allergen Reactions Cymbalta [Duloxetine] Other (See Comments) Reaction not specified in outside medical records. Diphenhydramine Itching Intense itching without rash. Intense itching without rash. Current Outpatient Medications on File Prior to Visit Medication Sig Dispense Refill chlorthalidone 25 mg tablet Take 25 mg [...] tablet Take 100 mg by mouth Daily. omeprazole (PRILOSEC) 20 mg capsule Take 20 mg by mouth Daily. pramipexole (MIRAPEX) 0.25 mg tablet Take 0.25 mg by mouth nightly. tamsulosin (FLOMAX) 0.4 mg CAPS Take 0.4 mg by mouth nightly. traZODone (DESYREL) 50 mg tablet Take 50 mg by mouth nightly. No current facility-administered medications on file prior to visit. Family History Problem Relation Age of Onset Hypertension Mother Stroke Mother Stroke Father Alcohol abuse Father Prostate cancer Father Arthritis Other Diabetes Other High cholesterol Other Social History Socioeconomic History Marital status: Spouse name: WILLAM OLSON Number of children: 3 Years of education: Not on file Highest education level: Not on file Social Needs Financial resource strain: Not on file Food insecurity - worry: Not on file Food insecurity - inability: Not on file Transportation needs - medical: Not on file Transportation needs - non-medical: Not on file Occupational History Comment: RETIRED Tobacco Use Smoking status: Former Smoker Packs/day: 1.00 Years: 30.00 Pack years: 30.00 Types: Cigarettes Start date: 09/15/1971 Last attempt to quit: 09/15/2001 Years since quittin.6 Smokeless tobacco: Former User Quit date: 11/12/1986 Substance and Sexual Activity Alcohol use: No Alcohol/week: 0.0 oz Drug use: No Sexual activity: Never control/protection: Surgical Other Topics Concern Not on file Social History Narrative Not on file Review of Systems Eyes: [] Double vision [] Glasses/contacts [] Failing vision Ear/Nose/Throat: [] Frequent Colds [] Sinus Disease [] Nose obstruction [] Sneezing Spells [] Change in taste [] Artificial teeth [] Ears ringing [] Ear pain [] Hearing loss [] Teeth problems [x] Hoarseness [] Neck swelling [] Sore throat [] Congestion [] Nosebleeds [] Nasal allergies Respiratory: [] Asthma/Wheezing [] Pneumonia [] Night sweats [] Shortness of breath [] Chronic cough [] Coughing up blood [] Exposure to tuberculosis Cardiovascular: [] Heart Problems [] Hypertension [] Heart murmur [] Palpitations [] Rheumatic fever [] Phlebitis [] Chest pain [x] Ankle swelling [] Leg cramps [] Raci ng heart [] Skipping beats [] Blood clots Gastrointestinal: [] Abdominal pain [] Heartburn [] Blood from rectum [] Colitis [] Gallbladder problems [] Troubl e swallowing [] Bloated stomach [] Change in stools [] Vomiting blood [] Nausea [] Hemorrhoids [] Jaundice [ ] Hepatitis [] Diarrhea [x] Constipation [] Diverticulitis Urinary Tract: [] Painful urination [] Kidney Stones [] Any urine leakage [] Weak urine stream [] Night urination [] Urine infections [] Bedwetting [] Blood in urine Skin: [] Skin rashes [] Itching/Burning [] Skin bruises easil y [] Artificial tanning [] Skin cancer [] Hair loss [] Changes in moles Musculoskeletal: [x] Physical handicaps [x] Back or shoulder pain []Rheumatoid disease [] Osteoarthritis [] Joint pain [] Joint swelling []Gout [] Leg cramps at night Neurological: [] Headaches [] Seizures [] Stroke/TIA [] Faintness [] Tremors [] Numbness [] Dizziness [] Changes in handwriting [] Memory loss [] Shooting pains Psychiatric: [x] Depression [] Suicidal thoughts [] Sleep pattern changes [] Appetite changes [] Recent counseling [] Nervousness/anxiety [] Physical violence [] Marital problems Endocrine: [] Thyroid [] Diabetes Systemic: []Weight loss/gain (over 10 lbs) []Fever/chills [x]Fatigue [] Sleeping Difficulties [] Speech change [] Voice change Vitals: 05/10/19 1105 BP: 128/71 Pulse: 69 Resp: 16 Temp: 36.6 C (97.9 F) PainSc: 5 PainLoc: Foot Estimated body mass index is 22.24 kg/m as calculated from the following: Height as of this encounter: 1.702 m (5' 7"). Weight as of this encounter: 64.4 kg (142 lb). Physical examination:Patient is alert and oriented and in no acute distress. Inspection reveals: Skin is warm dry and intact with no gross deformity. Head: Oral pharnyx nonerythematous nonedematous no exudate noted. He is wearing upper dent ures and is missing some of his lower teeth. Neck: Supple nontender without any lymphadenopathy. Heart: Regular rate and rhythm. Lungs: Clear to auscultation. Abdomen: Soft nontender no masses organomegaly. Cranial nerves 2-12 grossly intact. Musculoskeletal: There is spasm and contracture throughout the right ankle and foot muscul ature. The ankle can be dorsiflexed to just neutral with the knee extended but can be dorsi flexed an additional 15 degrees with the knee flexed consistent with gastrocnemius contractu re. The patient has calluses over the tips of his lesser toes consistent with chronic clawi ng of the toes and has some degree of increased supination of the midfoot as well as abducti on of the great toe. Assessment: History of cerebrovascular accident 13 years ago resulting in right-sided pravin paresis and hemiparalysis with right gastrocnemius tightness, lesser toe clawing, and abduct ion of the great toe. Plan: The patient is scheduled for a right gastrocnemius release, lesser toe flexor tendon release, and abductor hallucis release on 05/19/2019. Therefore, the planned procedure with i ts risks, possible complications, expected prognosis, and treatment alternatives was discuss ed with the patient. Risks and possible complications were listed but not limited to infect ion, nerve and vessel damage, bleeding, pain, scarring, stiffness, residual symptoms remaini ng after surgery, and the risk of anesthesia including . No guarantees were given or i mplied other than that of diligent effort. documented in th is encounter Miscellaneous Notes Plan of Care - Angie Barron RN - 05/19/2019 4:11 PM PDTOutpatient Case Management: D ME wheelchair order fax[facility] to [facility]. [facility]. He was discharged home before wheelchair was delivered. I call ed and told [facility] to deliver to his home. Bob ROJO was notified. Electronically signed by: Angie Barron RN 05/19/2019 16:14 lan of Care - Abi Driscoll PT - 05/19/2019 2:47 PM PDTFormatting of this note might be different from the o riginal. [facility] Physical Therapy OPIB Plan of Care Treatment, Initial Evaluation, Discharge Note Patient Name: Kevin Olvera . Date of Onset of Illness/Injury or Date of Surgery: 05/19/19 Start of Care/Start of Certification Date: 05/19/19 End of Certification Date: 05/19/19 Summary: Kevin presents to physical therapy with Impaired balance, gait instability, dec . activity michelle. s/p Right foot gastrocnemius release,and release of flexor tendons, and rel ease hallucis adductor, and pinning of right toes . NWB on (R) LE. Hx of CVA (R) side weak ness.. Objective exam reveals impairments with aerobic capacity/endurance, gait, locomotion , and balance, ergonomics and body mechanics, functional endurance/activity tolerance. Pt and caregiver training on bed <--> w/c transfers using FWW vs SPT. Safer with SPT with cues on correct positioning of w/c and maintaining NWB on (R) LE. Pt is not safe to ambulat e at this time d/t impaired balance and difficulty maintaining NWB on (R) LE. W/C mobility t raining was done and pt able to demo safe use of w/c. Pt has a ramp to enter his house and will be assisted by his and neighbors using the w/c. Recommending Home Health PT to fo llow up and cont.to work on transfer training and safe mobility inside his house then progre ss to out pt PT when appropriate. Precautions/Limitations: falls Right Lower Extremity Weight-Bearing: non weight-bearing Previous Level of Function: Transferring: independent Ambulation: independent Toileting: independent Bathing: independent Dressing: independent Eating: independent Communication: understands/communicates without difficulty Swallowin-->difficulty swallowing foods(difficulty with pills) Equipment Currently Used at Home: 2 wheeled walker (FWW), cane, straight, single point Prior Functional Level Comment: Pt was Mod I at home and amb using FWW for long distances a nd used SPC for short distance. Potential available assistance at discharge: Significant Relationships: spouse Provides Primary Care For: no one, unable/limited ability to care for self Living Environment/Accessibility: Lives With: spouse Home Accessibility: stairs to enter home, ramps present at home Number of Stairs to Enter Home: 2 Stair Railings at Home: none Patient/Family?s Goals: to return to home. Rehabilitation potential: good, to achieve stated therapy goals Identified Problems Needing Skilled Intervention: Impaired balance, gait instability, dec. activity michelle. s/p Right foot gastrocnemius release,and release of flexor tendons, and relea se hallucis adductor, and pinning of right toes . NWB on (R) LE. 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, functional endurance/activity tolerance Physical Therapy Discharge Recommendations are: Recommended discharge disposition: home with assist Post discharge physical therapy recommendation: home health Equipment Recommendations: wheelchair, wheelchair components (comment), other (see comment s)(16" wide w/c with elevating leg rest on (R), general use cushion) Planned Interventions: bed mobility training, gait training, transfer training, wheelchair management/propulsion training Recommended Frequency: one time visit Patient Status/Goals: Reflects last filed data and may be from multiple contributors. Bed Mobility extra time and effort d/t foot surgery. Assistive Device: none Supine to Sit, Level of [place]: modified independent Sit to Supine, Level of [place]: modified independent Safety Issues: decreased use of legs for bridging/pushing, decreased use of arms for pushin g/pulling Transfers verbal cues for correct positining of w/c and SPT technique . Return demo with spouse. Bed-Chair, Level of [place]: contact guard assist, verbal cues required Chair-Bed, Level of [place]: contact guard assist, verbal cues required Kxw-Eivuy-Qcu, Assistive Device: 2 wheeled walker (FWW), none Safety Issues: balance decreased during turns, step length decreased, weight-shifting abili ty decreased Impairments: strength decreased, impaired balance, decreased flexibility Gait Unsteady, cues for NWB on (R) LE. c/o feeling light headed . Level of [place]: contact guard assist Assistive Device: 2 wheeled walker (FWW) Distance (feet): 5' Gait Deviations: hiram decreased, mkf-ic-rxsvm clearance decreased, limb motion velocity decreased, step length decreased, weight-shifting ability decreased Impairments: impaired balance, strength decreased, decreased flexibility Stairs N/T, unsafe d/t NWB on (R) foot Wheelchair Mobility need elevating leg rest to keep (R) leg elevated to reduce swelling. Type: standard Cushion: none Surface: indoor, level Speed: slow Level of [place]: modified independent Propulsion Technique: bilateral UE's Components: brakes Components Management Assistance: modified independence Balance Sitting Balance: Static: good balance Sitting Balance: Dynamic: good balance Standing Balance: Static: (F-) Standing Balance: Dynamic: poor balance ROM L LE ROM: WFL R LE ROM: WFL, ankle N/T on cast Strength Strength Testing Results: no strength deficits were identified PT Goal Review Date Most Recent Value STG Review Date 05/19/19 at 05/19/2019 1447 [id number]-Hjr-[id number] Goal Most Recent Value STG Status new, met at 05/19/2019 1447 STG [place] Level modified independent at 05/19/2019 1447 Wif-Otrgt-Hty Goal Most Recent Value STG Status new, met at 05/19/2019 1447 STG [place] Level contact guard assist at 05/19/2019 1447 STG Assistive Device wheelchair at 05/19/2019 1447 Wheelchair Goal Most Recent Value STG Status new, met at 05/19/2019 1447 STG Pt will be able to propel w/c Mod I on level surface x 50' at 05/19/2019 1447 PT Time Calculation Individual Start Time: 1350 Individual Stop Time: 1447 Individual Total Time: 57 Missed Treatment Time: 0 PT Total Treatment Time: 57 Timed TX Code Minutes: 40 Electronically signed by: ABI DRISCOLL, PT, 05/19/2019 15:51 Hemiparesis of right dominant side as late effect of cerebrovascular disease, unspecified c janavascular disease type (HCC) [I69.951] p Note - Sara Leach MD - 05/19/2019 12:03 PM PDTPROVIDENCE [address] [address] OPERATIVE REPORT GERARDO LEACH MD Patient: KEVIN OLVERA Admitting: GERARDO LEACH MR #: [id number] LOC: PT TYPE: Adm Date: 05/19/2019 : 1945 DATE OF SURGERY: 05/19/2019. OPERATING SURGEON: Gerardo Leahc MD COAL TOWER OPERATOR: Sebastian Bill PA-C ANESTHESIOLOGIST: Joe Lewis MD PREOPERATIVE DIAGNOSIS: Right foot and ankle contractures including tight gastrocnemius mu scle, tight adductor hallucis, tight common flexor to lesser toes, and tight extensor halluc is longus and brevis to great toe. POSTOPERATIVE DIAGNOSIS: Right foot and ankle contractures including tight gastrocnemius m uscle, tight adductor hallucis, tight common flexor to lesser toes, and tight extensor hallu cis longus and brevis to great toe. TITLE OF OPERATION: Release of adductor hallucis longus, release of flexors to all 4 lesse r toes, Z-plasty lengthening of extensor hallucis longus and brevis, and Leticia gastrocnemi us release mid leg level with application of short leg splint. HISTORY AND REASON FOR SURGERY: Kevin Olvera is a 73-year-old male who sustained a cerebr ovascular accident about 13 years ago affecting the right side of his body and he has been l eft with some degree of weakness as well as muscle spasm and contracture subsequently. He h as noted muscle spasm and painful chronic clawing of his lesser toes with intermittent pain involving the instep. Examination has revealed the findings as noted above including chron ic contracture, tightness of the gastrocnemius muscle, the lesser toe flexors, the adductor hallucis, and the extensor hallucis longus and brevis of the great toe. In view of these fi ndings, he is felt to be a candidate for appropriate releases and lengthenings and therefore the planned procedures with the risks, possible complications, expected prognosis, and tobias tment alternatives were discussed with the patient. The risks and possible complications w therese listed, but not limited to, infection, nerve and vessel damage, bleeding, pain, scarring , stiffness, possibility of residual symptoms remaining after surgery, and the risk of anest hesia. He verbalized understanding. No guarantees were given or implied other than that of diligent effort. OPERATIVE PROCEDURE: After the patient signed the consent for surgery, he received a sciat ic block in the preoperative area and then he was brought into the operating room where he u nderwent general anesthesia successfully. He received 2 grams of IV Ancef. A tourniquet wa s applied to the right thigh and the entire right lower extremity was prepped with alcohol a nd ChloraPrep and draped in the usual free and sterile manner. We first directed our attention to the interspace between the great and 2nd toes. We made a dorsal incision approximately 2.5 cm in length. We carried this down with gentle spreadin g technique until we encountered the adductor hallucis longus tendon, which was divided unde r direct vision. Next, we proceeded to make longitudinal incisions over the plantar distal aspect of the proximal phalanx of each of the lesser toes and then proceeded to completely divide the long flexor tendon under direct vision with an 11 blade knife. We then used each of the lesser toes including toes #2, #3, #4, and #5. We then directed our attention back to the dorsal 1-2 interspace incision and noted that there was rather prominent contracture of the great toe even at rest, so that it was obviously severely contracted in extension. W gabo have discussed this option with the patient prior to surgery and it was felt that a Z-lucille sty lengthening was appropriate. We therefore proceeded to lengthen both the extensor hallu cis longus and extensor hallucis brevis tendons in a Z-plasty manner, so that the brevis was lengthened approximately 4 mm and the longus was lengthened approximately 8 mm. The Z-plas ty was repaired with 4-0 Mersilene. We then released the tourniquet with a tourniquet time of 37 minutes. We irrigated all the wounds thoroughly and copiously with normal saline and secured hemostasis with cautery. We then closed subcutaneous tissues of the dorsal incisio n with 4-0 Mersilene and the skin of all incisions with 4-0 nylon. We then re-exsanguinated the right lower extremity with an Esmarch bandage and inflated the tourniquet again to 250 mmHg. We then made a 4 cm incision posteromedially at the level of the musculotendinous liang ction of the gastric soleus. We carried the incision down through skin and subcutaneous ti ssue on the crural fascia to encounter the gastrocsoleus tendon. We carefully freed the int erval between the soleus and the gastrocnemius tendon and then proceeded to divide the gastr ocnemius tendon under direct vision using both an 11 blade knife and then a Metzenbaum sciss ors for the last few fibers. We took care to not extend beyond the tendon to preserve the s ural nerve. This being done, we then released the second tourniquet, time of approximately 8 minutes. We irrigated the wound thoroughly and secured hemostasis with cautery. We clos ed subcutaneous tissues with 3-0 Vicryl and skin with 3-0 nylon. At this juncture, we reass essed the foot. We felt that the great toe extensor hallucis longus was likely over lengthe андрей to a moderate degree and it was felt that this should be adjusted. We therefore removed the skin and subcutaneous tissues from the dorsal foot incision. We then removed the Mers deangelo sutures from the EHL repair and adjusted the toes, so that we ended up with a lengthen ing of no more than 4 mm and then re-repaired the EHL Z-plasty with 4-0 Mersilene. We then again irrigated the wound and then closed the subcutaneous tissues with 4-0 Vicryl and skin with 4-0 nylon. We also injected the medial leg incision with 10 mL of 0.5 percent [place] ine. We then dressed all wounds with antibiotic ointment, Xeroform gauze, dry gauze, fluff s, cast padding, and then we applied a well-molded and well-padded short leg splint with the ankle held in neutral position. Following setting of the splint, which was secured with Ac e wraps, anesthesia was then terminated. The patient was transported to the recovery room i n stable condition. There were no immediate postoperative complications. BLOOD LOSS: About 10 mL. BLOOD REPLACED: None. SPECIMENS: None. FINDINGS: Same as postoperative diagnosis. PROGNOSIS: Good. GERARDO LEACH MD Dictated by GERARDO LEACH MD 05/19/2019 12:03:46 Transcribed on 05/19/2019 12:43:24 by in job# [id number] Confirmation #: [id number] p Note - Gerardo Shanks MD - 05/19/2019 11:54 AM PDTOp note dictation # [id number]. documented in this encounter Plan of Treatment + +------+--------+ + + | Name | Type | Priori | Associated Diagnoses | Order Schedule | | | | ty | | | + +------+--------+ + + | DME: Wheelchair | DME | Routin | Acquired deformity | DME 1 Time for 1 | | | | e | of right foot | Occurrences starting | | | | | Equinus contracture | 05/19/2019 until | | | | | of ankle | 05/19/2019 | + +------+--------+ + + documented as of this encounter Procedures + +--------+ + + + | Procedure Name | Priori | Date/Time | Associated Diagnosis | Comments | | | ty | | | | + +--------+ + + + | FL DILLON STATS NO | Routin | 05/19/2019 | | Results for this | | CHARGE | e | 11:01 AM | | procedure are in the | | | | PDT | | results section. | + +--------+ + + + | XR FOOT RIGHT 2 VW | Routin | 05/19/2019 | | Results for this | | | e | 11:00 AM | | procedure are in the | | | | PDT | | results section. | + +--------+ + + + | REPAIR ACHILLES | | 05/19/2019 | Hemiparesis of | | | TENDON | | 9:52 AM | right dominant side | | | | | PDT | as late effect of | | | | | | cerebrovascular | | | | | | disease, unspecified | | | | | | cerebrovascular | | | | | | disease type (HCC) | | + +--------+ + + + +---+--------+ | | | | | Specia | | | l | | | Needs | | | | +---+--------+ + +------+ +---+ + | BASIC METABOLIC | STAT | 05/19/2019 | | Results for this | | PANEL | | 8:58 AM | | procedure are in the | | | | PDT | | results section. | + +------+ +---+ + documented in this encounter Results FL C-Arm Stats No Charge (05/19/2019 11:01 AM PDT) + + | Specimen | + + | | + + + + + | Narrative | Performed At | + + + | This exam has been auto-finalized. It was entered for statistical | [facility] | | purposes only. | | + + + + +---------+ + + | Performing | Address | City/State/Zipcode | Phone Number | | Organization | | | | + +---------+ + + | [facility] | | | | + +---------+ + + XR Foot Right 2 Vw (05/19/2019 11:00 AM PDT) + + | Specimen | + + | | + + + + + | Narrative | Performed At | + + + | FINDING/IMPRESSION - Fluoroscopic images are obtained | [facility] | | intraoperatively with K wires through the second, third, fourth, and | | | fifth phalanges. See procedure report for further details. | | | Dictated and Signed by: Jorge Matute MD Electronically signed: | | | 05/19/2019 12:06 PM | | + + + + + | Procedure Note | + + | Regino Andrea Results In - 05/19/2019 12:09 PM PDT | | FINDING/IMPRESSION - | | | | Fluoroscopic images are obtained intraoperatively with K wires through the | | second, third, fourth, and fifth phalanges. See procedure report for further | | details. | | | | Dictated and Signed by: Jorge Matute MD | | Electronically signed: 05/19/2019 12:06 PM | + + + +---------+ + + | Performing | Address | City/State/Zipcode | Phone Number | | Organization | | | | + +---------+ + + | [facility] | | | | + +---------+ + + Basic Metabolic Panel (05/19/2019 8:58 AM PDT) + + + + + + | Component | Value | Ref Range | Performed | Pathologist | | | | | At | Signature | + + + + + + | Na | 137 | 136 - 145 | [facility] | | | | | mmol/L | [facility] | | | | | | [facility] | | | | | | [facility] - | | | | | | LABORATORY | | + + + + + + | K | 3.0 (L) | 3.4 - 5.1 | [facility] | | | | | mmol/L | [facility] | | | | | | [facility] | | | | | | [facility] - | | | | | | LABORATORY | | + + + + + + | Cl | 100 | 98 - 107 mmol/L | [facility] | | | | | | [facility] | | | | | | [facility] | | | | | | [facility] - | | | | | | LABORATORY | | + + + + + + | CO2 | 32 (H) | 20 - 31 mmol/L | [facility] | | | | | | [facility] | | | | | | [facility] | | | | | | C[facility] - | | | | | | LABORATORY | | + + + + + + | Anion Gap | 5 | 3 - 16 mmol/L | [facility] | | | | | | [facility] | | | | | | [facility] | | | | | | [facility] - | | | | | | LABORATORY | | + + + + + + | Glucose | 95 | 60 - 106 mg/dL | [facility] | | | | | | [facility] | | | | | | [facility] | | | | | | [facility] - | | | | | | LABORATORY | | + + + + + + | BUN | 13 | 9 - 23 mg/dL | [facility] | | | | | | [facility] | | | | | | [facility] | | | | | | C[facility] - | | | | | | LABORATORY | | + + + + + + | Creatinine | 1.23 | 0.70 - 1.30 | [facility] | | | | | mg/dL | [facility] | | | [facility] | [facility] | | | | | | C[facility] - | | | | | | LABORATORY | | + + + + + + | eGFR, | 58 (L)Comment: | >=60 | [facility] | | | non- | GLOMERULAR FILTRATION | mL/min/1.73m2 | [facility] | | | [place] | RATE,ESTIMATED | | MEDICAL | | | | mL/min/1.12c8Yynm than | | CENTER - | | | | 60 Chronic kidney | | LABORATORY | | | | disease,if found over a | | | | | | 3-month period.Less than | | | | | | 15 Kidney failureFor | | | | | | | | | | | | Americans,multiply the | | | | | | calculated GFR by 1.21. | | | | | | | | | | + + + + + + | Calcium | 8.9 | 8.7 - 10.4 | [facility] | | | | | mg/dL | [facility] | | | | | | MEDICAL | | | | | | CENTER - | | | | | | LABORATORY | | + + + + + + | BUN/Creatin | 10.6 | | [facility] | | | ine Ratio | | | [facility] | | | [...] + + | [facility] | [address] | [place] | [phone] | | [facility] | | [id number] | | | - LABORATORY | | | | + + + + + documented in this encounter Visit Diagnoses + + | Diagnosis | + + | Acquired deformity of right foot | + + | Equinus contracture of ankle | + + | Hypertension Unspecified essential hypertension | + + | GERD (gastroesophageal reflux disease) Esophageal reflux | + + | Stroke (HCC) Unspecified cerebral artery occlusion with cerebral infarction | + + | Spastic hemiplegia affecting right dominant side (HCC) Spastic hemiplegia affecting | | nondominant side | + + documented in this encounter Administered Medications + +--------+---------+------+------+------+ | Medication Order | MAR | Action | Dose | Rate | Site | | | Action | Date | | | | + +--------+---------+------+------+------+ + +---+ | albuterol 2.5 mg/3 mL nebulizer | | | solution 2.5 mg 2.5 mg, | | | Nebulization, ONCE PRN, Wheezing, | | | Starting Fri05/19/19 at 1118, For | | | 1 dose, Notify anesthesia if | | | patient is wheezing and does not | | | have a history of asthma or COPD | | | or current smoking., | | | Recovery/Phase I | | + +---+ | | | + +---+ | dextrose 50% injection 12.5-25 | | | g 12.5-25 g, Intravenous, EVERY | | | 15 MIN PRN, Low Blood Sugar, Give | | | 12.5g (25 mL) IV if blood | | | glucose 50-69 mg/dL. Give 25g | | | (50 mL) IV if blood glucose < 50, | | | Starting Fri05/19/19 at 0853, | | | Repeat in 15 min if blood glucose | | | remains < 70 mg/dL. Repeat | | | blood glucose in 30 min once | | | blood glucose > 70., Pre-op | | + +---+ | | | + +---+ | dextrose 50% injection 12.5-25 | | | g 12.5-25 g, Intravenous, EVERY | | | 15 MIN PRN, Low Blood Sugar, For | | | hypoglycemia. Give 12.5g (25ml) | | | IV if blood glucose 50-69 | | | mg/dL. Give 25g (50ml) IV if | | | blood glucose < 50, Starting Wed | | | 05/19/19 at 1118, Give over 2 min. | | | Repeat in 15 min if blood | | | glucose remains < 70 mg/dL. | | | Repeat blood glucose in 30 min | | | once blood glucose > 70., | | | Recovery/Phase I | | + +---+ | | | + +---+ | fentaNYL (PF) injection 25-50 | | | mcg 25-50 mcg, Intravenous, | | | EVERY 5 MIN PRN, Pain, Initial | | | postop urgent pain or escalating | | | pain, Starting 05/19/19 at | | | 1118, For 4 doses, Every 5 | | | minutes PRN for initial postop | | | urgent pain or escalating pain up | | | to 2 doses maximum. If patient | | | meets opioid tolerant definition, | | | can give up to 4 doses maximum. | | | First dose must be lowest dose. | | | Use Pasero Sedation Scale. | | | [Opioid tolerant = One week or | | | longer, uuxcvy-cyc-sqxxd use of | | | at least the following DAILY | | | dose: 60mg oral morphine, 60mg | | | oral hydrocodone, 30mg oral | | | oxycodone, 8mg oral | | | hydromorphone, fentanyl patch | | | 25mcg/hr, or equivalent dose of | | | another opioid], Recovery/Phase I | | + +---+ | | | + +---+ | HYDROmorphone (DILAUDID) | | | injection 0.2-0.6 mg 0.2-0.6 mg, | | | Intravenous, EVERY 5 MIN PRN, | | | Pain, Starting Fri05/19/19 at | | | 1118, First dose must be lowest | | | dose, can increase subsequent | | | doses by 0.2mg within dosing | | | range. If patient meets opioid | | | tolerant definition, can start | | | with 0.4mg dose. [Maximum total | | | PACU dose 4mg] Use Pasero | | | Sedation Scale. [Opioid tolerant | | | = One week or longer, | | | zrkfty-lcm-zxsde use of at least | | | the following DAILY dose: 60mg | | | oral morphine, 60mg oral | | | hydrocodone, 30mg oral oxycodone, | | | 8mg oral hydromorphone, fentanyl | | | patch 25mcg/hr, or equivalent | | | dose of another opioid], | | | Recovery/Phase I | | + +---+ | | | + +---+ | labetalol (TRANDATE) 5 mg/mL | | | injection 5 mg 5 mg, | | | Intravenous, EVERY 5 MIN PRN, For | | | SBP > 180, DBP > 100, Starting | | | Fri05/19/19 at 1118, Hold if HR < | | | 60. Maximum total dose 300mg. | | | Notify anesthesia if patient | | | requires more than 50mg., | | | Recovery/Phase I | | + +---+ | | | + +---+ + +---------+ +--------+-------+---+ | lactated ringers (LR) infusion | New Bag | 05/19/20 | 1,000 | 100 | | | at 10-100 mL/hr, Intravenous, | | 19 9:32 | mLs | mL/hr | | | CONTINUOUS, Starting Fri05/19/19 | | AM PDT | | | | | at 0915, TKO., Pre-op | | | | | | + +---------+ +--------+-------+---+ + +---+ | | | + +---+ | ondansetron (ZOFRAN ODT) | | | disintegrating tablet 4 mg 4 mg, | | | Oral, EVERY 6 HOURS PRN, Nausea, | | | Vomiting, Starting Fri05/19/19 at | | | 1214, First line agent, | | | Post-op/Phase II | | + +---+ | | | + +---+ | ondansetron (ZOFRAN) injection | | | 4 mg 4 mg, Intravenous, ONCE | | | PRN, Nausea, Starting Fri05/19/19 | | | at 1118, For 1 dose, | | | Recovery/Phase I | | + +---+ | | | + +---+ | ondansetron (ZOFRAN) injection | | | 4 mg 4 mg, Intravenous, EVERY 6 | | | HOURS PRN, Nausea, Vomiting, | | | Starting Fri05/19/19 at 1214, | | | First line agent. Use PO option | | | unless NPO status or unable to | | | tolerate., Post-op/Phase II | | + +---+ | | | + +---+ documented in this encounter
--- OUTSIDE RECORDS SUMMARY | ~2020-06-26 | XMS | Encounter Summary ---
Demographics + + + | Address | [address] | | | [place] [address] | + + + | Home Phone | | + + + | Preferred Language | Unknown | + + + | Marital Status | | + + + | Methodist Affiliation | Unknown | + + + | Race | White | + + + | Ethnic Group | Not or | + + + Author + + + | Author | [facility] | | | and [place] | + + + | Organization | [facility] | | [...] [place] | | | | | [id number] | | + + + + + Care Team Providers + +------+ + | Care Cafe Team Member Name | Role | Phone | + +------+ + | Harris Sauceda MD | PCP | | + +------+ + Encounter Details +--------+ + + + + | Date | Type | Department | Care Team | Description | +--------+ + + + + | 03/24/ | Imaging | [facility] | Provider, | | | 2020 | Exam | [facility] | [address] | | | | | IMAGING [address] | [address] | | | | | [address] | [place] [address] | | | | | [place] [address] | | | | | | [phone] | | | +--------+ + + + [...] | + +--------+ + + + | MRI CERVICAL SPINE | Routin | 03/22/2020 | | Results for this | | WO CONTRAST | e | 12:00 AM | | procedure are in the | | | | PDT | | results section. | + +--------+ + + + documented in this encounter Results MRI Cervical Spine wo Contrast (03/22/2020 12:00 AM PDT) + + | Specimen | [...]
--- OUTSIDE RECORDS SUMMARY | ~2020-06-26 | XMS | Encounter Summary ---
Demographics + + + | Address | [address] | | | [place] [address] | + + + | Home Phone | | + + + | Preferred Language | Unknown | + + + | Marital Status | | + + + | [employer] Affiliation | Unknown | + + + | Race | White | + + + | Ethnic Group | Not or | + + + Author + + + | Author | [facility] | | | and [place] | + + + | Organization | [facility] | | | [...] [place] | | | | | [phone] | | + + + + + Care Team Providers + +------+ + | Care Training And Development Manager Name | Role | Phone | + [...] | | | | | | | altered | | | | | | | mental | | | | | | | status | | | +--------+--------+ + + + + Encounter Details +--------+ + + + + | Date | Type | Department | Care Team | Description | +--------+ + + + + | 07/16/ | Hospital | [facility] | Yariel Berman, | Gait abnormality | | 2016 - | Encounter | [facility] | [address] | (Primary Dx); | | | | [address] | [place] | Hypotension due to | | 07/17/ | | [place] [address] | [phone] | medication | | 2015 | | [phone] | | | | | | | Jose Rincon, | | | | | | [address] | | | | | | [place] | | | | | | [phone] | | | | | | | | +--------+ + + + [...] + + + | Blood Pressure | 155/69 | 07/17/2016 7:37 AM | | | | | PDT | | + + + + + | Pulse | 92 | 07/17/2016 7:37 AM | | | | | PDT | | + + + + + | Temperature | 36.7 C (98.1 F) | 07/17/2016 7:37 AM | | | | | PDT | | + + + + + | Respiratory Rate | 16 | 07/17/2016 7:37 AM | | | | | PDT | | + + + + + | Oxygen Saturation | 92% | 07/17/2016 7:37 AM | | | | | PDT | | + + + + + | Inhaled Oxygen | - | - | | | Concentration | | | | + + + + + | Weight | 65.2 kg (143 lb 11.8 | 07/15/2016 11:45 PM | | | | oz) | PDT | | + + + + + | Height | 167.6 cm (5' 6") | 07/15/2016 11:45 PM | | | | | PDT | | + + + + + | Body Mass Index | 23.2 | 07/15/2016 11:45 PM | | | | | PDT [...] documented as of this encounter Discharge Summaries Jose Rincon MD - 07/17/2016 9:49 AM PDTFormatting of this note might be different f rom the original. HOSPITALIST DISCHARGE SUMMARY [facility] in [place], [place] Pt. Name/Age/: Kevin Aleman Sr. 71 y.o. 1945 Date of admission: 07/16/2016 Discharge date and time: July 17, 2016 from inpatient hospitalization. Hospital Day: 2 Admitting Physician: Yariel Berman MD Primary Care Physician: Almas Licea CHIEF DIAGNOSES: Active Hospital Problems Diagnosis Hypotension due to medication Resolved Hospital Problems Diagnosis No resolved problems to display. Code Status: Full Code POLST form No OTHER and ALL DIAGNOSES: Patient Active Problem List Diagnosis FOOT DEFORMITY, [...] Hypokalemia Achalasia Hypotension due to medication Procedures & Diagnostic Studies: Monitoring, fluids Consults: None Reason for Admission: See H&P for further details, but in summary Kevin Aleman Sr. is a 71 y.o. year old male followed by Almas Licea, who presented with hypotension and lethargy. Hospital Course: Dr. Berman transferred the patient from the Inpatient Rehab unit to the ICU for unexplained hypotension and confusion. By morning, when I took over, the patient was back to baseline. Dr. Berman suspected he just got a bit dry, and I suspect a combination of trazodone, muscl e relaxants and analgesics may have played a role. He remained alert and his BP returned to baseline, but we're going to hold his ARB until he sees his PCP in a week. DISCHARGE MEDICATIONS: Discharge Medications Notice Some of the medications listed here do not show instructions, such as how often to take th e medication. Ask your doctor or nurse how to use these medications. Specifically ask about this and similar medications: aspirin 325 mg tablet New Medications Details baclofen 10 mg tablet Take 1 tablet by mouth 2 times daily. aka: LIORESAL baclofen 20 mg tablet Take 1 tablet by mouth nightly. aka: LIORESAL oxyCODONE 5 mg tablet Take 1 tablet by mouth every 4 hours as needed for Pain. aka: ROXICODONE Changed Medications Details mycophenolate 500 MG tablet as directed What changed: - how much to take - how to take this - when to take this aka: CELLCEPT warfarin 5 mg tablet Take 1.5 tablets by mouth Daily. What changed: how much to take aka: COUMADIN Unchanged Medications Details aspirin 325 mg tablet nkwn! atorvaSTATin 40 mg tablet Take 40 mg by mouth nightly. aka: LIPITOR citalopram 40 mg tablet Take 40 mg by mouth Daily. aka: CELEXA [facility] OMEPRAZOLE 20 mg Tbec Generic drug: omeprazole as directed finasteride 5 mg tablet Take 5 mg by mouth Daily. aka: PROSCAR Discontinued Medications losartan 50 mg tablet aka: COZAAR Medications Discontinued During This Encounter Medication Reason traZODone (DESYREL) tablet 25 mg aluminum & magnesium hydroxide-simethicone (MAALOX PLUS REGULAR STRENGTH) 200-200-20 mg /5 mL suspension 30 mL bisacodyl (DULCOLAX) suppository 10 mg calcium carbonate (TUMS) chewable tablet 1,000 mg cyclobenzaprine (FLEXERIL) tablet 10 mg docusate sodium (COLACE) capsule 100 mg lactulose liquid 30 mL magnesium hydroxide (MILK OF MAGNESIA) 400 mg/5 mL suspension 30 mL ondansetron (ZOFRAN ODT) disintegrating tablet 4 mg polyethylene glycol (MIRALAX) powder 17 g senna (SENOKOT) tablet 8.6 mg albuterol 2.5 mg/3 mL nebulizer solution 2.5 mg atorvaSTATin (LIPITOR) tablet 40 mg baclofen (LIORESAL) tablet 10 mg baclofen (LIORESAL) tablet 20 mg bisacodyl (DULCOLAX) EC tablet 5 mg citalopram (celeXA) tablet 40 mg enoxaparin (LOVENOX) 40 mg/0.4 mL injection 40 mg finasteride (PROSCAR) tablet 5 mg gabapentin (NEURONTIN) capsule 300 mg guaiFENesin (ROBITUSSIN) 100 mg/5 mL liquid 200 mg menthol (HALLS COUGH DROP) lozenge 1 lozenge miconazole (MICATIN) 2% powder mycophenolate (CELLCEPT) capsule 500 mg nystatin (MYCOSTATIN) cream oxyCODONE (ROXICODONE) tablet 2.5 mg pantoprazole (PROTONIX) DR tablet 40 mg pharmacy to dose warfarin potassium chloride (K-DUR) ER tablet 20 mEq tiZANidine (ZANAFLEX) tablet 4 mg warfarin (COUMADIN) tablet 7.5 mg warfarin (COUMADIN) tablet 7.5 mg oxyCODONE (ROXICODONE) tablet 2.5 mg cyclobenzaprine (FLEXERIL) tablet 10 mg warfarin (COUMADIN) tablet 7.5 mg warfarin (COUMADIN) 5 mg tablet losartan (COZAAR) 50 mg tablet DISCHARGE Instructions; Don't take losartan until you see Dr. Licea. FOLLOWUP APPOINTMENTS and ISSUES; Future Appointments Date Time Provider Department Center 07/17/2016 10:45 CHEMO Melendez [facility] OTIP [facility] 07/17/2016 13:00 Paula Menon PT [facility] EMERGENCY DEPT TECH [facility] 07/29/2016 15:30 Matt Sandoval PA-C [facility] 10/10/2016 16:00 William Garcia MD [facility] Follow-up Information Follow up with Almas Licea In 1 week. Specialty: Internal Medicine Contact information: [address] [place] [address] [place] [address] Follow up issues and pending labs needing to be addressed: Routine DATA: Objective Data on Day of Discharge: Temp: 36.7 C (98.1 F) BP: 155/69 mmHg Pulse: 92 Resp: 16 SpO2: 92 % on Min/Max Temp past 24 hours:Temp Av.5 C (97.7 F) Min: 36 C (96.8 F) Max: 36. 7 C (98.1 F) Weight most recent: Weight: 65.2 kg (143 lb 11.8 oz) BMI: Body mass index is 23.21 k g/(m^2). Physical Examination Today: Constitutional: Well developed, well nourished, no acute distress, non-toxic appearance Eyes: PERRL, EOMI, conjunctiva normal HEENT: NC/AT, Neck- normal range of motion, no tenderness, supple Respiratory: No respiratory distress, normal breath sounds, no rales, no wheezing Cardiovascular: Regular rate and rhythm, no murmurs, gallops, or rubs. GI: Soft, nondistended, normal bowel sounds, nontender, no rebound, no guarding : No costovertebral angle tenderness Musculoskeletal: No edema, no tenderness, Integument: Well hydrated, no rashes or concerning skin lesions Lymphatic: No cervical or inguinal lymphadenopathy Neurologic: Alert & oriented x 3 Psychiatric: Speech and behavior appropriate Selected Labs/Studies: Recent Labs Lab 07/17/16 0607/15/162201 WBC 4.9 4.9 HGB 12.9* 11.3* HCT 37.9* 34.0* PLT 334 284 Recent Labs Lab 07/17/16 0607/16/16 0509 07/15/16220107/14/16 0846 NA 141 -- 139 135* K 4.2 -- 4.2 4.2 CL 108 -- 107 102 CO2 26 -- 28 26 BUN 6* -- 9 6* CREA 0.93 -- 0.99 0.83 CALCIUM 9.0 -- 8.6 8.8 ALT -- 16 -- -- AST -- 27 -- -- No results for input(s): PHART, PO2ART, IQY1OJM, Y2UMWDPX, BEART in the last 168 hours. No results for input(s): BNP, DDIMER in the last 168 hours. Invalid input(s): CKTOTAL, TROPONINI, CKMBINDEX Recent Labs Lab 07/17/16 0607/16/16 0509 07/15/16 0603 INR 1.92* 1.67* 1.69* GLUCOSE, POC Date/Time Value Ref Range Status 07/13/2016 20:55 109 70-150 mg/dL Final Patient was seen and examined today and [facility] Electronically signed by: Jose Rincon MD 07/17/2016 9:56 Portions of this chart may have been created with [employer] voice recognition software. Occasi onal wrong-word or sound-alike substitutions may have occurred due to the inherent murphy itations of voice recognition software. Please read the chart carefully and recognize, using context, where these substitutions have occurred. oEduard crouch MD - 07/17/2016 8:46 AM PDT REHABILITATION DISCHARGE SUMMARY TEMPLATE Patient Identification: Kevin Aleman Sr. 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 COMPARISON: Chest radiographs June 21 FINDINGS: There is calcification and tortuosity of the thoracic aorta. The cardiomediastinal silhouette and pulmonary vasculature are otherwise unremarkable. There is new hazy reticular opacity at the right base and in the infrahilar region. The lungs are clear elsewhere. Trace pleural effusions are now suggested. There is no visible pneumothorax. Generalized osteopenia is suggested. IMPRESSION - 1. NEW RIGHT BASILAR RETICULAR OPACITY, POSSIBLY REFLECTING ATELECTASIS, ASPIRATION OR DEVELOPING INFILTRATE, WITH TRACE PLEURAL EFFUSIONS. Dictated and Signed by: Haroldo Andrade MD Electronically signed: 07/07/2016 4:[address] Head wo Contrast Narrative EXAM: CT HEAD WO CONTRAST dated 07/08/2016 4:45 PM HISTORY: unwitnessed fall Comparison: None. TECHNIQUE: Noncontrast CT is performed from the top of calvarium through the skull base. Coronal and sagittal reformats are performed. DOSE: DLP 613.27 mGy-cm FINDINGS: BRAIN: There is moderate cerebral atrophy. There is associated appropriate prominence of the ventricles. No areas of increased attenuation to suggest intracranial hemorrhage. There is no mass, mass effect, or midline shift. There are no abnormal extra-axial fluid or air collections. There is preservation of the rivas-white differentiation at this time. There is moderate patchy to confluent decreased density in the periventricular and subcortical white matter. Evidence of remote infarcts in the right caudate head and right basal ganglia. SCALP/ CALVARIUM: The scalp and skull are intact and are unremarkable. SINUSES / ORBITS/ MASTOIDS: The visible mastoid air cells and paranasal sinuses are clear. The globes and retroconal contents are intact and are unremarkable. IMPRESSION - Senescent changes of the brain. Evidence of remote right caudate and basal ganglia infarcts. No acute intracranial process. Dictated and Signed by: Saji Waldron MD Electronically signed: 07/08/2016 5:08 PM XR Lumbar Spine 2 or 3 Vw Narrative XR LUMBAR SPINE 2 OR 3 VW 07/08/2016 4:58 PM HISTORY: post-op, unwitnessed fall. COMPARISON: Multiple priors. FINDINGS: Again visualized are hardware for posterior fusion from L2 through L5 with spacer hardware at these levels. The hardware are intact. Mild subsidence is noted of the spacer hardware at L4-5 along the superior aspect of L5. There is some cement at level L5. Minimal retrolistheses are seen of L2 over L3, L3 over L4, and L4 over L5. Bone mineralization is normal. Stable mild to moderate wedging is seen of T12. There is stable mild wedging of L1. Disc height are maintained. Facet joints are intact. Visualized ribs and pelvic osseous structures show no acute findings. Moderate to severe atherosclerosis is present. IMPRESSION - Stable posterior fusion from L2 through L5. Stable wedging of T12 and L1. Dictated and Signed by: Judd Ansari MD Electronically signed: 07/08/2016 5:02 PM FL Esophagram Complete Narrative FL ESOPHAGRAM COMPLETE 07/09/2016 8:42 AM HISTORY: Mid sternum pain with swallowing. COMPARISON: None. PROTOCOL: The patient was not given the usual effervescent crystals due to overall discomfort from recent lumbar fusion surgery. Oral barium was administered by cup and straw, and fluoroscopic images of the esophagus and stomach region were obtained. FINDINGS: A small hiatal hernia is visualized. Significant spasm with bird beaking is seen at the gastroesophageal junction, which is situated in the lower chest given the presence of the hiatal hernia. There is associated moderate distention of the esophagus diffusely. Mucosal pattern is normal otherwise. These findings would be consistent with achalasia. Imaged stomach and small bowel show no acute findings. Partially imaged are hardware for lumbar fusion. IMPRESSION - Small hiatal hernia. Achalasia with moderate distention of the esophagus. Dictated and Signed by: Judd Ansari MD Electronically signed: 07/09/2016 10:13 AM XR Chest AP Portable Narrative EXAM: XR CHEST AP PORTABLE dated 07/13/2016 9:54 PM HISTORY: Increased SOB and prior CXR had air space opacity. Comparison: 07/07/2016 and 06/21/2016 TECHNIQUE: A single portable view of the chest. FINDINGS: The lungs are symmetrically aerated. Lung volumes are low. Interval resolution of the basilar opacity in the right lung. There are no large pleural effusions. There is no pneumothorax. Mild cardiomegaly. No acute osseous abnormalities. Contrast seen within the colon. IMPRESSION - Interval resolution of the right lung base parenchymal opacity. Dictated and Signed by: Saji Waldron MD Electronically signed: 2016 9:[address] Head wo Contrast Narrative CT HEAD WO CONTRAST 07/15/2016 11:36 PM HISTORY: Lethargy. COMPARISON: 07/08/2016. PROTOCOL: Axial images of the head were obtained along with coronal and sagittal reformations. FINDINGS: There is moderate age-related brain volume loss with enlargement of the ventricles, cisterns, and sulci. A moderate amount of periventricular white matter hypodensity are present, consistent with small vessel ischemic disease. The brain parenchyma demonstrates no evidence for acute infarct, mass lesion, or hemorrhage. The brainstem is unremarkable. The cerebellum is normal. The pituitary gland is grossly normal. Moderate atherosclerosis are visualized of the carotid arteries. Mild right and moderate left vertebral artery atherosclerosis are seen. 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 Mild mucosal thickening with a gas bubble is noted in the left sphenoid sinus. Mastoid air cells are normal. Calvarium, temporal bones, and skull base structures are unremarkable. IMPRESSION - No acute findings. Moderate senescent changes. A preliminary report was sent by [facility] on 07/15/2016 at 11:54 PM with no significant discrepancy. Dictated and Signed by: Judd Ansari MD Electronically signed: 07/16/2016 7:43 AM Treatments: daily intensive therapy ADMISSION HPI: Mr. 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 Patient has a long history of hemiparesis and spasticity for which he was followed by Dr. Toshia lara. He reports that in the past year or so his spasticity seems to have increased resu lting in more difficulty ambulating and preforming self-care. He reports that he has had 8 falls in the past six months, all of which occurred when his right foot became caught on th e ground during swing phase. He utilizes a loftstrand crutch in the left hand when ambulat ing, and he reports the falls occurred despite using the crutch. He also has a right AFO b ut he does not wear it due to his equinovarus ankle and hallux varus contractures. He was previously treated with serial casting in [place] which apparently resulted in significa nt improvement in his ROM but the contractures have reoccurred. In addition to these contr actures she also has RLE greater than RUE spasticity. He previously underwent botox chemod enervation by Dr. Dean which apparently improved his symptoms significantly but they have n ot been repeated for a few years. In reviewing his outpatient notes he also trialed low do se oral baclofen at night, which the patient does not recall, so its unclear if this helped significantly. He never did TID dosing of the baclofen, nor has he tried tizanidine, dantr olene, or diazepam. Dr. Rivera was also following him for his chronic lower back pain and neurogenic claudicat ion. Conservative treatment with PT and lumbar facet steroid injections were trialed but d id not improve his pain significantly so he underwent the above surgery. Post-op he has done well with no severe complications. He did have some confusion on at n ight on 07/04 but was redirectable. SOCIAL HISTORY: reports that he quit smoking about 14 years ago. His smoking use included Cigarettes. He s tarted smoking about 44 years ago. He has a 30 pack-year smoking history. He has never used smokeless tobacco. He reports that he drinks about 8.4 oz of alcohol per week. He reports th at he does not use illicit drugs. Patient lives with his in a single floor home with 2 NILE. His provides intermit tent supervision at home in [place] FAMILY HISTORY: Family History Problem Relation Age of Onset Stroke Father Cancer Father Alcohol abuse Father Hypertension Mother Stroke Mother PAST MEDICAL HISTORY: Past Medical History Diagnosis Date GERD (gastroesophageal reflux disease) Depression High cholesterol Stroke (HCC) right sided weakness Hypertension Back pain of thoracolumbar region 08/29/2012 Facet arthritis of lumbar region (HCC) 02/01/2015 Trochanteric bursitis of right hip 02/01/2015 Poor circulation Adverse effect of anesthesia high blood pressure after stomach biopsy PAST SURGICAL HISTORY: Past Surgical History Procedure Laterality Date Biopsy 2007 stomach 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 DISCHARGE PHYSICAL EXAMINATION: VS: BP 155/69 mmHg | Pulse 92 | Temp(Src) 36.7 C (98.1 F) (Oral) | Resp 16 | Ht 1.676 m (5' 6") | Wt 65.2 kg (143 lb 11.8 oz) | BMI 23.21 kg/m2 | SpO2 92% GENERAL: NAD, well-groomed and nourished. Sitting in [facility]: pleasant, mood very flat. Speech is slow, and responses slow HEAD: NCAT. Scalp alopecia. EYES: pupils equal and conjugate, EOMI, anicteric sclera EARS: no blood in external auditory canal NOSE: no discharge MOUTH/THROAT: MMM, OP clear. Dentition is good NECK: supple, no masses CARDIOVASCULAR: skin warm and dry, 2+ radial pulses RESPIRATORY: nonlabored, breathing comfortably on room air NEUROLOGIC EXAM: AOx3, baseline cognition LABORATORY: Recent Results (from the past 48 hour(s)) CBC with Differential Result Value Ref Range WBC 4.9 4.0-11.0 K/uL RBC 3.32 (L) 4.30-5.70 M/uL Hgb 11.3 (L) 13.5-18.0 g/dL Hct 34.0 (L) 40.0-51.0 % MCV 102.3 (H) 83.0-101.0 fL MCH 34.1 28.0-35.0 pg MCHC 33.3 32.0-36.0 g/dL RDW-CV 13.8 <15.0 % Platelet Count 284 140-440 K/uL MPV 7.1 fL % Neutrophils 71.9 45.0-82.0 % % Lymphocytes 12.0 (L) 20.0-45.0 % % Monocytes 13.3 (H) 4.0-12.0 % % Eosinophils 1.9 0.0-5.0 % % Basophils 0.9 0.0-1.0 % Absolute Neutrophils 3.50 1.80-8.50 K/uL Absolute Lymphocytes 0.60 0.60-3.20 K/uL Absolute Monocytes 0.60 0.00-1.00 K/uL Absolute Eosinophils 0.10 0.00-0.40 K/uL Absolute Basophils 0.00 0.00-0.10 K/uL Basic Metabolic Panel Result Value Ref Range NA 139 136-149 mmol/L K 4.2 3.5-5.1 mmol/L CL 107 98-109 mmol/L CO2 28 24-31 mmol/L ANION GAP 4 3-16 mmol/L GLUCOSE 137 (H) 70-109 mg/dL BUN 9 7-18 mg/dL Creatinine, Serum/Plasma 0.99 0.60-1.30 mg/dL eGFR if not >60 >=60 mL/min/1.73m2 CALCIUM 8.6 8.3-10.5 mg/dL BUN/CREA 9.1 Culture, MRSA Result Value Ref Range Culture Negative for MRSA by chromogenic agar method ALT Result Value Ref Range ALT 16 6-45 U/L AST Result Value Ref Range AST 27 10-42 U/L Protime INR Result Value Ref Range PROTIME 20.1 (H) 11.3-13.9 seconds INR 1.67 (H) 0.90-1.10 Extra Lavender Top Tube Result Value Ref Range Extra Lavender Top Tube Done Protime INR Result Value Ref Range PROTIME 22.5 (H) 11.3-13.9 seconds INR 1.92 (H) 0.90-1.10 Basic Metabolic Panel Result Value Ref Range NA 141 136-149 mmol/L K 4.2 3.5-5.1 mmol/L CL 108 98-109 mmol/L CO2 26 24-31 mmol/L ANION GAP 7 3-16 mmol/L GLUCOSE 93 70-109 mg/dL BUN 6 (L) 7-18 mg/dL Creatinine, Serum/Plasma 0.93 0.60-1.30 mg/dL eGFR if not >60 >=60 mL/min/1.73m2 CALCIUM 9.0 8.3-10.5 mg/dL BUN/CREA 6.5 CBC with Differential Result Value Ref Range WBC 4.9 4.0-11.0 K/uL RBC 3.73 (L) 4.30-5.70 M/uL Hgb 12.9 (L) 13.5-18.0 g/dL Hct 37.9 (L) 40.0-51.0 % MCV 101.6 (H) 83.0-101.0 fL MCH 34.5 28.0-35.0 pg MCHC 34.0 32.0-36.0 g/dL RDW-CV 13.5 <15.0 % Platelet Count 334 140-440 K/uL MPV 7.1 fL % Neutrophils 69.6 45.0-82.0 % % Lymphocytes 13.2 (L) 20.0-45.0 % % Monocytes 13.7 (H) 4.0-12.0 % % Eosinophils 2.1 0.0-5.0 % % Basophils 1.4 (H) 0.0-1.0 % Absolute Neutrophils 3.40 1.80-8.50 K/uL Absolute Lymphocytes 0.60 0.60-3.20 K/uL Absolute Monocytes 0.70 0.00-1.00 K/uL Absolute Eosinophils 0.10 0.00-0.40 K/uL Absolute Basophils 0.10 0.00-0.10 K/uL Hospital Course: Mr. 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 Patient was essentially failing at home with multiple falls and struggling with self-care, and he has now had a large lumbar surgery which has resulted in a further decline in his function. He now has increased deficits in attention (likely multi facorial for pain and new environment), coordination, ambulation, strength, ADLs, and IADLs. Patient has been doing well with therapies #Rehabilitation Medicine Recommendations: Patient was going to be discharged on 07/16 but w as transferred to the ICU (see below). He and his have now completed all of their goal s and when medically cleared by the medicine team can be discharged home. Patient should co ntinue therapies with home health as he still has limited ability to a access the community and his cannot drive. Patient lives in [place] so will need to be coordinated with h is PCP. --Continue PT for strength, endurance, ROM, ambulation, balance, home evaluation --Continue OT for UE strengthening, functioning, and ROM; and training in ADLs, IADLs #AMS - On the night 07/15 patient was noted to be hypotensive and confused. He was evaluat ed by Dr. Kapadia who ultimately admitted the patient to the ICU after the symptoms continued f or an hour despite IVF bolus. A CT head was done which did not demonstrate any acute change s. And his oxycodone dosage was reduced. By morning the patient had cleared and was at his baseline mental status and neuro exam. And was kept overnight on the medicine team for fur ther observation. #SOB - new right basilar opacity, hospitalist team assisting PNA vs atelectasis. Also with desaturations when sleeping. Wheezing seems more upper respiratory as lungs sound clear. 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 #Stroke 11 years ago presumably left MCA based on exam - Per patient spasticity has increas ed in past year but in reviewing his outpatient notes it is not clear if this is true. Cou ld be related to his spine issues vs another CVA. Either way his spasticity has to be more aggressively treated as it is contributing to his frequent falls -Continue Atorvastatin 40mg daily -Continue baclofen 10mg TID -Continue tizanidine 4mg qhs, (of note cipro should be used with ca ution as it can potentiate the effect of tizanidine) -Continue losartan 50mg daily -Continue warfarin, takes chronically -LMWH until therapeutic -Recommend referral to Dr. [facility] for botox chemodenervation #hypoxia - has been noted when sleeping or just after napping. The night that he was trans ferred to the ICU RT has started an overnight oximetry to see if he qualifies for home O2 bu t this was not completed. -Recommend outpatient sleep study to evaluate for ARABELLA #rash on groin and face with satellite lesions - improving, patient reports this is long st and and he has seen multiple dermatologists for this so may not be fungal as initially ought -Nystatin powder for groin #Fall - on 07/09, patient had multiple falls at home which is why we admitted him. Unfort unately the fall was unwitnessed and he was on the ground for some time so the etiology is n ot clear. STAT CT head - no acute changes. XR L-spine - no hardware changes, stable #Achalasia - found of barium esophagram along with a small hiatal hernia, explains his subs ternal pain with eating -Referral to outpatient GI on discharge #Retroperotineal fibrosis - stable. -Continue Cellcept 500mg qday #History of depression - stable -Continue citalopram 40mg daily #Hypokalemia - resolved -Continue potassium chloride 20meq BID #Malnutrition - low albumin and protein -Nutrition consulted to assist Code Status: Full Code Functional Status: Report Date 07/15/2016 FIM BladderScore: 5 FIM Bowel Score: 6 FIM Bed/Chair/Wheelchair Score: 5 FIM Toilet Transfer Score: 5 FIM Tub/Shower Transfer Score: 5 FIM Walk Score: 5 FIM Distance Walked(feet): 160 feet FIM Wheelchair Score: FIM Stairs Score :5 FIM Eating Score: 6 FIM Grooming Score: 5 FIM Bathing Score: 5 FIM Dressing Upper Body Score: 5 FIM Dressing Lower Body Score: 4 FIM Toileting Score: 5 Admit: Report Date 07/06/2016 FIM BladderScore: 5 FIM Bowel Score: 0 FIM Bed/Chair/Wheelchair Score: 4 FIM Toilet Transfer Score: 4 FIM Tub/Shower Transfer Score: 0 FIM Walk Score: 2 FIM Distance Walked(feet): 50 feet FIM Wheelchair Score: na FIM Stairs Score :0 FIM Eating Score: 6 FIM Grooming Score: 6 FIM Bathing Score: 0 FIM Dressing Upper Body Score: 4 FIM Dressing Lower Body Score: 3 FIM Toileting Score: 4 DISPOSITION: home with intermittent supervision from family after cleared by Hospitalist te am. FOLLOW UP: TRAY TBD PCP 1-2 weeks Recommend referral to [facility], rehab clinic for botox chemodenervation DISCHARGE INSTRUCTIONS: Stroke Discharge Instructions I have been instructed on the following guidelines: I have been diagnosed with a Ischemic Stroke Call 911 immediately if you experience the sudden onset of any of these Stroke warning sign s. Recognize and Respond to STROKE: Sudden severe headache with no known cause B is for BALANCE - Does the person have a sudden loss of balance? E is for EYES - Has the person suddenly lost their vision, have double vision or blurry vision? F is for FACE - Does the person's face suddenly look uneven? A is for ARM - Is one arm suddenly weak or hanging down? S is for SPEECH - Is the person suddenly having trouble speaking, slurred speech, or a h blas time understanding? T is for TIME - TIME to call now! 80% of strokes are preventable I should know my blood pressure numbers and treat if necessary I should know my cholesterol numbers and treat if necessary If I have diabetes, I should know my A1C and control my diabetes I should get exercise every day I should work to keep, or get within a normal weight range Smoking: For assistance quitting: https://www.quitnow.net/programLookUp/EnrollNow/ or call 5-759-RITS--LIFE ( ). Para inscribirse en milton trinidad al y oprima 2. Diet: Choose a healthy diet based on your doctor's recommendations. Medications: I should always take medications as directed I should never stop a medication without asking my doctor or practitioner first I should keep a current medication list with me at all times Follow up appointments: It is important your follow up with your primary care provider after you are discharged fro m the hospital to talk about ways to reduce your risk for stroke Stroke Resources: National Stroke Association: http://www.stroke.org/ 2-440-KYDJOYW (216-6565), menu option 3 [place] Stroke Association: http://www.strokeassociation.org/STROKEORG/ 6-770-9-STROKE 6-058-819-[facility] Brain Aneurysm Foundation: http://www.bafound.org/ 5-238 121-1576 I spent 30 minutes face to face with the patient, with over 50% spent in counseling and/or coordination of care regarding the above plan Signed: Eduard Young MD 07/17/2016 8:46 Portions of this chart may have been created with [employer] voice recognition software. Occasi onal wrong-word or sound-alike substitutions may have occurred due to the inherent murphy itations of voice recognition software. Please read the chart carefully and recognize, using context, where these substitutions have occurred documented in thi s encounter Medications at Time of Discharge + [...] + + + +---------+ + + | baclofen | Take 1 tablet by | 60 | 0 | 07/17/20 | | | (LIORESAL) 10 mg | mouth 2 times daily. | tablet | | 16 | 7 | | tablet | | | | | | + + + +---------+ + + | baclofen | Take 1 tablet by | 30 | 0 | 07/17/20 | | | (LIORESAL) 20 mg | mouth nightly. | tablet | | 16 | 9 | | tablet | | [...] +---------+ + + | oxyCODONE | Take 1 tablet by | 50 | 0 | 07/17/20 | | | (ROXICODONE) 5 mg | mouth every 4 hours | tablet | | 16 | 9 | | tablet | as needed for Pain. | | | | | + + + +---------+ + + | warfarin | Take 1.5 tablets by | | 0 | 07/17/20 | | | (COUMADIN) 5 mg | mouth Daily. | | | 16 | 7 | | tablet | | | | | | + + + +---------+ + + documented as of this encounter Progress Notes Donna Rodriguez RN - 07/17/2016 10:54 AM PDTDischarge instructions reviewed with p atient and , prescriptions given, medications reviewed and reminded to go to [facility] to fill prescriptions, all questions answered. Electronically signed by: Donna Rodriguez RN 07/17/2016 10:56 Leola Ca, PharmD - 07/17/2016 8:09 AM PDTFormatting of this note might be different from the origi nal. WARFARIN PER PHARMACY PROTOCOL: Subjective/Objective: Kevin Aleman . is a 71 y.o. male admitted on 07/06/16 for stroke and admitted to ICU on 07/16/2016 for hypotension and lethargy and is receiving warfarin. Patient has a past me dical history of GERD (gastroesophageal reflux disease); Depression; High cholesterol; Strok e ([facility]); Hypertension; Back pain of thoracolumbar region (08/29/2012); Facet arthritis of buzz mbar region ([facility]) (02/01/2015); Trochanteric bursitis of right hip (02/01/2015); Poor circulat ion; and Adverse effect of anesthesia. 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 Enterprise Security Architect: age Drug Interactions: May increase bleeding risk: Citalopram, Enoxaparin, Lactulose (moderate ), Pantoprazole (moderate) NON-valvular AFIB patients: [id number] score (max 9): 4 []CHF, [x]HTN, []Age > 75 (2), []DM, [x] prior CVA,VTE (2), []WA,PAD, [x]Age 64-74, []Fema le Recent Labs Lab 07/17/16 0601 07/16/16 0509 07/15/16 2202 07/15/16 0603 07/14/16 0846 CREA 0.93 -- 0.99 -- 0.83 HGB 12.9* -- 11.3* -- -- HCT 37.9* -- 34.0* -- -- PLT 334 -- 284 -- -- INR 1.92* 1.67* -- 1.69* -- Date 07/03/16 07/06/16 07/07/1607/08 Hgb 12.2 - 12.2 - - - - - - - - - 12.9 Hct - - 35.4 - - - - - - - - - 37.9 Platelets - - 145 - - - - - - - - - 334 INR 1.03 - 0.98 0.97 1.08 1.18 1.26 1.41 1.6 1.73 1.69 1.67 1.9 2 Warfarin Dose - 2.5mg 2.5mg 5 mg 2.5 mg 5 mg 5 mg 5 mg 7.5 mg 5 mg 7. 5mg 10mg 7.5 mg Assessment: The INR is below the target range of 2-3 for stroke Patient's INR trending downward despite dose increase Liver enzymes this AM WNL Bridging with Lovenox 40mg sc daily Possible discharge tomorrow. Pt states that a pharmacist manages his Coumadin at [facility] Plan: 1. Will give Warfarin 7.5 mg po x 1 tonight, and assess INR tomorrow for dose adjustment. 2. As patient may be d/c'd today, 07/16: spoke with patient and dicussed his INR and told lynette iraheta to follow up with [facility] once d/c'd for assessment of INR and Warfarin dosing. 3. Medication profile reviewed for potential drug-drug interactions 4. Labs in am: Hgb, Hct, INR 5. Warfarin education received No (home medication) 6. Pharmacist to follow daily 7. Warfarin Dosing Nomogram Warfarin Dosing Expectations Per P&T-approved Electronically signed by: Leola Nathan, PHARMPauly 07/17/2016 8:09 ashanitad, Roseann Pastrana PharmD - 07/16/2016 12:48 PM PDTFormatting of this note might be different from the origin al. WARFARIN PER PHARMACY PROTOCOL: Subjective/Objective: Kevin Aleman Sr. is a 71 y.o. male admitted on 07/06/16 for stroke and admitted to ICU on 07/16/2016 for hypotension and lethargy and is receiving warfarin. Patient has a past me dical history of GERD (gastroesophageal reflux disease); Depression; High cholesterol; Strok e ([facility]); Hypertension; Back pain of thoracolumbar region (08/29/2012); Facet arthritis of buzz mbar region ([facility]) (02/01/2015); Trochanteric bursitis of right hip (02/01/2015); Poor circulat ion; and Adverse effect of anesthesia. Goal INR: 2-3 []Initiation [x]chronic Home regimen: 27.5mg/week (2.5mg Mon, Wed, Fri and 5mg Tue, Th, Sat, and Sun) Managed by: pharmacists at [facility] per patient Enterprise Security Architect: age Drug Interactions: May increase bleeding risk: Citalopram, Enoxaparin, Lactulose (moderate ), Pantoprazole (moderate) NON-valvular AFIB patients: [id number] score (max 9): 4 []CHF, [x]HTN, []Age > 75 (2), []DM, [x] prior CVA,VTE (2), []WA,PAD, [x]Age 64-74, []Fema le Recent Labs Lab 07/16/16 0509 07/15/16 2202 07/15/16 0603 07/14/16 0846 07/14/16 0625 07/10/16 0523 CREA -- 0.99 -- 0.83 -- -- 0.77 HGB -- 11.3* -- -- -- -- -- HCT -- 34.0* -- -- -- -- -- PLT -- 284 -- -- -- -- -- INR 1.67* -- 1.69* -- 1.73* < > 1.18* < > = values in this interval not displayed. Date 07/03/16 07/06/16 07/07/1607/08 Hgb 12.2 - 12.2 - - - - - - - - - Hct - - 35.4 - - - - - - - - - Platelets - - 145 - - - - - - - - - INR 1.03 - 0.98 0.97 1.08 1.18 1.26 1.41 1.6 1.73 1.69 1.67 Warfarin Dose - 2.5mg 2.5mg 5 mg 2.5 mg 5 mg 5 mg 5 mg 7.5 mg 5 mg 7. 5mg 10mg Assessment: The INR is below the target range of 2-3 for stroke Patient's INR trending downward despite dose increase Liver enzymes this AM WNL Bridging with Lovenox 40mg sc daily Possible discharge tomorrow. Pt states that a pharmacist manages his Coumadin at [facility] Plan: 1. Will give Warfarin 10mg po x 1 tonight, and assess INR tomorrow for dose adjustment. 2. As patient may be d/c'd tomorrow, spoke with patient and dicussed his INR and told him t o follow up with [facility] once d/c'd for assessment of INR and Warfarin dosing. 3. Medication profile reviewed for potential drug-drug interactions 4. Labs in am: Hgb, Hct, INR 5. Warfarin education received No (home medication) 6. Pharmacist to follow daily 7. Warfarin Dosing Nomogram Warfarin Dosing Expectations Per P&T-approved Electronically signed by: Roseann Luke PHARMD 07/16/2016 12:51 Gorge An MD - 07/16/2016 9:19 AM PDTFormatting of this note might be different from the sagar lanier HOSPITALIST PROGRESS NOTE on 07/16/2016 [facility] Pt. Name/Age/: Kevin Aleman Sr. 71 y.o. 1945 Med. Record Number: [id number] Primary Care Physician: Almas Licea Date of admission: 07/16/2016 Hospital Day: 1 ASSESSMENT AND PLAN: CHIEF PROBLEMS: Principal Problem: Hypotension due to medication Code Status: Full Code PLAN Will observe overnight back on second floor, check labs, and discharge to home if OK tomorr ow morning. Disposition: Home. Brief Summary Hospitalization: 71 yo WM with hypotension and decreased level of consciousness last night. CT showed no a cute changes, ARB held, some fluid given, and he turned around quickly[facility] He tells me this morning he wants to go home. DISCUSSION: Perhaps medication-related. I don't see any terribly concerning new issues. SUBJECTIVE: The patient chart and medications were reviewed and the patient was seen and examined. Fe els back to baseline. OBJECTIVE: Vitals: Temp: 35.9 C (96.6 F) BP: 151/79 mmHg Pulse: 65 Resp: 16 SpO2: 97 % RA Min/Max Temp past 24 hours: Temp Av.3 C (97.3 F) Min: 35.9 C (96.6 F) Max: 36.6 C (97.9 F) Intake/Output Summary (Last 24 hours) at 07/16/16 09 Last data filed at 07/16/16 0900 Gross per 24 hour Intake 240 ml Output 525 ml Net -285 ml Wt. Admission: Weight: 65.2 kg (143 lb 11.8 oz) Wt. Current: Weight: 65.2 kg (143 lb 11 .8 oz) Physical Examination: Constitutional: No acute distress, non-toxic appearance Eyes: conjunctiva normal. PERRL HEENT: Supple, normal ROM and without adenopathy. Oropharynx moist, no pharyngeal exudate s. Respiratory: No respiratory distress, normal breath sounds, no rales, no wheezing Cardiovascular: Normal rate, normal rhythm, no murmurs, no gallops, no rubs. GI: Soft, nondistended, normal bowel sounds, nontender, no organomegaly, no mass, no rebou nd, no guarding Integument: Well hydrated, no rashes or concerning skin lesions Neurologic: Alert & oriented x 3 Psychiatric: Speech and behavior appropriate Diagnostic Studies: Radiology: Available data and images were reviewed personally. Ct Head Wo Contrast 07/16/2016 CT HEAD WO CONTRAST 07/15/2016 11:36 PM HISTORY: Lethargy. COMPARISON: 2015. PROTOCOL: Axial images of the head were obtained along with coronal and sagittal refo rmations. FINDINGS: There is moderate age-related brain volume loss with enlargement of the ventricles, cisterns, and sulci. A moderate amount of periventricular white matter hypodens ity are present, consistent with small vessel ischemic disease. The brain parenchyma demonst rates no evidence for acute infarct, mass lesion, or hemorrhage. The brainstem is unremarkab le. The cerebellum is normal. The pituitary gland is grossly normal. Moderate atheroscleros is are visualized of the carotid arteries. Mild right and moderate left vertebral artery ath erosclerosis are seen. 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 Mild mucosal thickening with a gas bubble is noted in the left sphenoid sinus. Mastoid air cells are normal. Calvarium, temporal bones, and skull base structures are unremarkable. IMPRESSION - No acute findings. Moderate senescent changes. A preliminary report was sent by M2G on 6 at 11:54 PM with no significant discrepancy. Dictated and Signed by: Judd Ansari MD El ectronically signed: 07/16/2016 7:43 AM Selected Labs/Studies: Recent Labs Lab 07/15/162201 WBC 4.9 HGB 11.3* HCT 34.0* PLT 284 Recent Labs Lab 07/16/16 0509 07/15/16 22007/14/16 0846 07/10/16 0523 NA -- 139 135* 135* K -- 4.2 4.2 3.6 CL -- 107 102 102 CO2 -- 28 26 28 BUN -- 9 6* 5* CREA -- 0.99 0.83 0.77 CALCIUM -- 8.6 8.8 8.2* ALT 16 -- -- -- AST 27 -- -- -- No results for input(s): PHART, PO2ART, GXI1RGN, F3XJOFQJ, BEART in the last 168 hours. No results for input(s): TROPONINT, BNP in the last 168 hours. Invalid input(s): CKTOTAL, TROPONINI, CKMBINDEX Recent Labs Lab 07/16/16 0509 07/15/16 0603 07/14/16 0625 INR 1.67* 1.69* 1.73* GLUCOSE, POC Date/Time Value Ref Range Status 07/13/2016 20:55 109 70-150 mg/dL Final Micro results last 72hrs: Microbiology Results (72 hrs) Procedure Component Value Units Date/Time Culture, MRSA [[id number]] Collected: 07/16/16 0055 Order Status: Sent Lab Status: In process Updated: 07/16/16 0150 Specimen Information: Respiratory from Nares MEDICATIONS: SCHEDULED PRN atorvaSTATin 40 mg Oral Nightly baclofen 10 mg Oral BID baclofen 20 mg Oral Nightly citalopram 40 mg Oral Daily enoxaparin 40 mg Subcutaneous Daily finasteride 5 mg Oral Daily gabapentin 300 mg Oral TID miconazole Topical BID mycophenolate 500 mg Oral QAM nystatin Topical BID pantoprazole 40 mg Oral QAM AC pharmacy to dose warfarin Other Pharmacy Consult potassium chloride 20 mEq Oral BID tiZANidine 4 mg Oral Nightly albuterol, aluminum & magnesium hydroxide-simethicone, bisacodyl, bisacodyl, calcium carb tony, cyclobenzaprine, docusate sodium, guaiFENesin, lactulose, magnesium hydroxide, mentho l throat lozenges, ondansetron, oxyCODONE, polyethylene glycol, senna, traZODone DVT Prophylaxis warfarin/lovenox CMS Documentation I expect this patient will be hospitalized for greater than 2-midnights and expect the post -hospital plan to be discharge to home or to an adult foster home. Electronically signed by: Jose Rincon MD, 07/16/2016 9:19 [facility] Portions of this chart may have been created withHello Curry voice recognition software. Occas ional wrong-word or sound-alike substitutions may have occurred due to the inherent li mitations of voice recognition software. Please read the chart carefully and recognize, jaswant rehman context, where these substitutions have occurred. Eliezer Rasmussen R N - 07/15/2016 11:00 PM PDTKevin started shift alert x4, talkative and without neuro sympto ms. Shortly after 2100 medications given is blood pressure dropped to 78/88 Dr. Madrid noti fied. IV was started and a 500 ml bolus of NS given. Blood pressure raised to 92/68. At neur o check at 2300 Kevin was hard arouse and had slurred speech and a decreased LOC. Dr Madrid notified, transferred to Imaging and then ICU. Report given to ICU nurse. Electronically signed by: Eliezer Crenshaw RN 07/16/2016 7:48 documented in this e ncounter H&P Notes Yariel Berman MD - 07/16/2016 5:31 AM PDTFormatting of this note might be different fro m the original. [place], [place] HOSPITALIST TRANSFER NOTE Patient: Kevin Gutierrez [facility]. : 1945: Age: 71 y.o. MedRec: [id number] Admission date: 07/16/2016 Hospital day #: 0 Physician author: Yariel Berman MD Today: 07/16/2016 Transferred from Rehab to Stepdown due to hypotension and lethargy HISTORY OF PRESENT ILLNESS: See below PAST MEDICAL and SURGICAL HISTORY: Past Medical History Diagnosis Date GERD [...] L2-3, L3-4, L4-5; Surgeon: William Garcia MD; Yolande colemanon: [facility] FAMILY HISTORY: family history includes Alcohol abuse in his father; Cancer in his father; Hypertension in his mother; Stroke in his father and mother. SOCIAL HISTORY: reports that he quit smoking about 14 years ago. His smoking use included Cigarettes. He s tarted smoking about 44 years ago. He has a 30 pack-year smoking history. He has never used smokeless tobacco. He reports that he drinks about 8.4 oz of alcohol per week. He reports th at he does not use illicit drugs. ALLERGIES: Allergies Allergen Reactions Hydrocodone Itching Severe itching Acetaminophen Itching Diphenhydramine Itching Intense itching without rash. CURRENT MEDICATIONS: Current Facility-Administered Medications Medication Dose Route Frequency Provider Last Rate Last Dose albuterol 2.5 mg/3 mL nebulizer solution 2.5 mg 2.5 mg Nebulization RT Q4H PRN Yariel Berman MD aluminum & magnesium hydroxide-simethicone (MAALOX PLUS REGULAR STRENGTH) 200-200-20 mg /5 mL suspension 30 mL 30 mL Oral Q6H PRN Yariel Berman MD atorvaSTATin (LIPITOR) tablet 40 mg 40 mg Oral Nightly Yariel Berman MD baclofen (LIORESAL) tablet 10 mg 10 mg Oral BID Yariel Berman MD baclofen (LIORESAL) tablet 20 mg 20 mg Oral Nightly Yariel Berman MD bisacodyl (DULCOLAX) EC tablet 5 mg 5 mg Oral Daily PRN Yariel Berman MD bisacodyl (DULCOLAX) suppository 10 mg 10 mg Rectal Daily PRN Yariel Berman MD calcium carbonate (TUMS) chewable tablet 1,000 mg 1,000 mg Oral Q2H PRN Yariel Berman MD citalopram (celeXA) tablet 40 mg 40 mg Oral Daily Yariel Berman MD cyclobenzaprine (FLEXERIL) tablet 10 mg 10 mg Oral Q8H PRN Yariel Berman MD docusate sodium (COLACE) capsule 100 mg 100 mg Oral BID PRN Yariel Berman MD enoxaparin (LOVENOX) 40 mg/0.4 mL injection 40 mg 40 mg Subcutaneous Daily Yariel vinson MD finasteride (PROSCAR) tablet 5 mg 5 mg Oral Daily Yariel Berman MD gabapentin (NEURONTIN) capsule 300 mg 300 mg Oral TID Yariel Berman MD guaiFENesin (ROBITUSSIN) 100 mg/5 mL liquid 200 mg 200 mg Oral Q4H PRN Yariel Berman MD lactulose liquid 30 mL 30 mL Oral Daily PRN Yariel Berman MD magnesium hydroxide (MILK OF MAGNESIA) 400 mg/5 mL suspension 30 mL 30 mL Oral Nightly PRN Yariel Berman MD menthol (HALLS COUGH DROP) lozenge 1 lozenge 1 lozenge Buccal Q1H PRN Yariel Berman MD miconazole (MICATIN) 2% powder Topical BID Yariel Berman MD mycophenolate (CELLCEPT) capsule 500 mg 500 mg Oral QAM Yariel Berman MD nystatin (MYCOSTATIN) cream Topical BID Yariel Berman MD ondansetron (ZOFRAN ODT) disintegrating tablet 4 mg 4 mg Oral Q6H PRN Yariel Berman MD oxyCODONE (ROXICODONE) tablet 2.5 mg 2.5 mg Oral Q4H PRN Yariel Berman MD pantoprazole (PROTONIX) DR tablet 40 mg 40 mg Oral QAM AC Yariel Berman MD pharmacy to dose warfarin Other Pharmacy Consult Yariel Berman MD polyethylene glycol (MIRALAX) powder 17 g 17 g Oral Daily PRN Yariel Berman MD potassium chloride (K-DUR) ER tablet 20 mEq 20 mEq Oral BID Yariel Berman MD senna (SENOKOT) tablet 8.6 mg 8.6 mg Oral Nightly PRN Yariel Berman MD tiZANidine (ZANAFLEX) tablet 4 mg 4 mg Oral Nightly Yariel Bemran MD traZODone (DESYREL) tablet 25 mg 25 mg Oral Nightly PRN Yariel Berman MD Most recent weight: Input and output for last 24hrs: Wt Readings from Last 1 Encounters: 07/15/16 65.2 kg (143 lb 11.8 oz) Vitals Ranges: Temp: [36.3 C (97.3 F)-36.6 C (97.9 F)] 36.6 C (97.9 F) Pulse: [61-63] 61 Resp: [15-17] 17 BP: (98-108)/(61-62) 98/61 mmHg Vitals: Temp: 36.6 C (97.9 F) BP: 98/61 mmHg Pulse: 61 Resp: 17 SpO2: 94 % SpO2 94 % on nasal cannula at flow rate 2L/min DIAGNOSTIC STUDIES: Hematology and anemia Recent Labs Lab 07/15/162201 WBC 4.9 HGB 11.3* HCT 34.0* PLT 284 NEUPCT 71.9 MONPCT 13.3* Recent Labs Lab 07/15/16 0603 07/14/16 0625 07/13/16 2128 PROTIME 20.3* 20.7* 20.1* INR 1.69* 1.73* 1.67* No results for input(s): IRON, TIBC, PCTSAT, FERRITIN, TSH, [id number], FOLATE in the last 168 hours. Inflammatory markers No results for input(s): LACTATE, PROCALCITONI, CRP, ESR in the last 168 hours. Chemistry Recent Labs Lab 07/15/16220107/14/16 0846 07/10/16 0523 GLU 137* 101 100 NA 139 135* 135* K 4.2 4.2 3.6 CL 107 102 102 CO2 28 26 28 ANIONGAP 4 7 5 BUN 9 6* 5* CREA 0.99 0.83 0.77 GFRNONAA >60 >60 >60 CALCIUM 8.6 8.8 8.2* No results for input(s): MG, PHOS in the last 168 hours. No results for input(s): AMYLASE, LIPASE in the last 168 hours. No results for input(s): TRIG, CHOL, HDL, LDL in the last 168 hours. No results for input(s): AMMONIA in the last 168 hours. Cardiology & Digoxin No results for input(s): TROPONIN, CK, CKMB, BNP, DIGOXIN in the last 168 hours. Invalid input(s): CKTOTAL ABG No results for input(s): PHART, PO2ART, MXJ8BVQ, VQU6JNY, BEART, [id number] in the last 168 h ours. No results for input(s): SPECSOURCE, PHPOCB, PCO2, PO2, HCO3, TCO2, BEART, [id number] in the last 168 hours. Drug of overdose and abuse No results for input(s): ALCOHOL, ACTMN, SALICYLATE in the last 168 hours. No results for input(s): AMPHEQUAL, BARBITURATE, BENZSCR, CANNIBSCR, AMPHETAMINE, METHADSCR , OPIATESCR in the last 168 hours. Urinalysis Recent Labs Lab 07/14/16 1214 GLUCOSEU Negative Micro results (more choices using dotmicro) Microbiology Results (72 hrs) Procedure Component Value Units Date/Time Culture, MRSA [[id number]] Collected: 07/16/16 0055 Order Status: Sent Lab Status: In process Updated: 07/16/16 0150 Specimen Information: Respiratory from Nares Radiology results (more choices using dotrisresults) Ct Head Wo Contrast 07/15/2016 DISCLAIMER: This is a preliminary report provided by [facility]. A final report is available at [facility]. CT HEAD W ITHOUT CONTRAST CLINICAL INFORMATION: Lethargy and weakness. COMPARISON: CT HEAD WO CONT RAST dated 07/08/2016 PROCEDURE: Axial images were obtained through the brain without IV c ontrast. Multiplanar reformations were obtained from the acquisition data. At least one of the following CT dose optimization techniques were used: Automated exposure control; Adju stment of mA and/or kV according to patient size; Use of iterative reconstruction technique. FINDINGS: See below. IMPRESSION: No evidence of mass effect, acute hemorrhage or defini te acute cortical infarct. No change since the prior study obtained Jul 08. Stable senesce nt changes of the brain. Dictated by: Carlos Eduardo Moran Signed by: Carlos Eduardo Moran Report sent: 07/15/2016 11:54:00 PM ASSESSMENT: (meyprob vs meyprobap) Active Hospital Problems Diagnosis SPASTIC HEMIPLEGIA AFFECTING DOMINANT SIDE Achalasia Hypokalemia Hypoxia Acute asthma flare Dysphagia as late effect of cerebrovascular disease Hypertension High cholesterol CEREBRAL THROMBOSIS, WITH INFARCTION Resolved Hospital Problems Diagnosis No resolved problems to display. Patient was on Rehab and Berman copied the [facility] hospitalist coverage note to here as below Hypotension with dizziness No ischemic pain, has been borderline PO and is on Losartan which I stopped SOB mild His lung exam stable to improved compared to my Jul 13 exam Postop lumbar sgy Remote spastic CVA (meynotebar) (meyvent) Plan NS bolus 500 Cut back his oxycodone to 2.5 mg (had been using 5 mg per dose) NS bolus 500 and RN to call me back after that is in with BP result CBC and BMP I had rechecked SBP prior to bolus actually got 81 Note that I stopped his Cozaar due to low BP Note that Rehab service was planning on going home on friday Addendum 1119 pm more lethargic am transferring to stepdown and getting Head CT (erickson jay phelps [facility]) Electronically signed by: Yariel Berman MD 07/16/2016 5:31 [facility] Portions of this chart may have been created with Harry's voice recognition software. Occasi onal wrong-word or sound-alike substitutions may have occurred due to the inherent murphy itations of voice recognition software. Please read the chart carefully and recognize, using context, where these substitutions have occurred documented in this en counter Miscellaneous Notes Plan of Care - Artemio Marinelli LICSW - 07/17/2016 11:05 AM PDTProblem: Discharge Plan carmen Goal: Patient will be discharged in a safe manner Outcome: Adequate for Discharge Date Met: 07/17/16 Patient discharged home today with his transporting him back to [place] and she will be his primary care provider. The patient received his signed copy of his medicare importa nt message. The patient needed a 2 wheeled walker and it was ordered and the patient request ed that it be secured from [facility] in [place]. The order, demographics and chart notes were faxed to [facility] and a call was made to them. Home health nursing and ph ysical therapy were ordered and the patient chose the only home health provider in [facility]. The referral, demographics and medical information was faxed to [facility]. [facility] was called to alert them of the referral.Electronical ly signed by: KESHAV Nelson 07/17/2016 11:27 lan of Dayami Rodriguez, Speech Pathologist - 07/17/2016 11:05 AM PDTProblem: Patient Care Overview (Adult) Goal: Care Team Goals & Evaluation PROBLEM-RELATED GOALS: 1- Pt will have increased PT/OT strength and mobility RLE by 09/19/15. 2. Pt will have no therapeutic PT INR and labs by 09/19/15. 3. Pt will be at baseline neuro with slight RLE deficit by 09/19/15. 4. Pt will have adequate I/O by 09/19/15. 5. Pt will have baseline o2 sats by 09/19/15. 6. Pt will be supervision to min assist for his ADLs, functional mobility w/i spinal precau tions by 07/18/16. STRATEGY TO ACHIEVE GOALS: Monitor pt activity and PT/OT and use FWW for RLE and wearing LSO-C brace at all times. Monitor pt labs PT/INR every shift and PRN. Monitor neuro every 2 hours and PRN. Monitor pt I/O every 4 hours and PRN. Monitor pt 02 sats and have baseline RA every 4 hours and PRN. - Active participation in OT sessions RESTRAINT-RELATED GOALS: STRATEGIES TO ACHIEVE RESTRAINT GOALS: Speech Therapy Acute Missed Visit (patient unavailable) Note Patient Information Patient Name: Kevin Aleman . Date of : 1945 Age: 71 y.o. Summary: Attempted to see pt prior to his DC for cognition re-eval however he was in the p rocess for discharging. TEXTILE STYLIST spoke with CHEMO and Pt is able to verbally recall his lumbar pre cautions however when mobilizing he doesn't use them. MCLAIN to make copies of back precaution s and provide them to Pt and to assist with recall upon DC. OT to target cognition thro [facility] to assist with integration of back precautions during functional activities. No [facility] TEXTILE STYLIST services at this time. Missed Treatment Time: 1 minutes Electronically signed by: Dayami Anthony, SPEECH PATHO, 07/17/2016 11:24 lan of Care - Nicolle Vargas COTA - 07/17/2016 9:00 AM PDTProblem: Patient Care Ove rview (Adult) Goal: Care Team Goals & Evaluation PROBLEM-RELATED GOALS: 1- Pt will have increased PT/OT strength and mobility RLE by 09/19/15. 2. Pt will have no therapeutic PT INR and labs by 09/19/15. 3. Pt will be at baseline neuro with slight RLE deficit by 09/19/15. 4. Pt will have adequate I/O by 09/19/15. 5. Pt will have baseline o2 sats by 09/19/15. 6. Pt will be supervision to min assist for his ADLs, functional mobility w/i spinal precau tions by 07/18/16. STRATEGY TO ACHIEVE GOALS: Monitor pt activity and PT/OT and use FWW for RLE and wearing LSO-C brace at all times. Monitor pt labs PT/INR every shift and PRN. Monitor neuro every 2 hours and PRN. Monitor pt I/O every 4 hours and PRN. Monitor pt 02 sats and have baseline RA every 4 hours and PRN. - Active participation in OT sessions RESTRAINT-RELATED GOALS: STRATEGIES TO ACHIEVE RESTRAINT GOALS: Occupational Therapy Daily Treatment Note Patient Information Patient Name: Kevin Aleman . Date of : 1945 Age: 71 y.o. Precautions/Limitations: falls, spinal, orthotic/bracing (C-Bracing) Left Upper Extremity Weight-Bearing: (no lifting, pushing, pulling > 5 lbs) Right Upper Extremity Weight-Bearing: (no lifting, pushing, pulling > 5 lbs) Left Lower Extremity Weight-Bearing: full weight-bearing Right Lower Extremity Weight-Bearing: full weight-bearing Start Time: 07 Stop time: 0805 Time Calculation: 45 minutes Missed Treatment Time: minutes Total Treatment Time: 45 minutes TimedTreatment Code Minutes: 45 minutes Frequency: (1-2 addt'l OT visits) Subjective: Pt agreeable to work with OT this AM Objective: Pt agreeable to work with OT this AM. See below for pt's level of assist. Pt completed mor carmen ADL's, stood at sink for sponge bath and grooming, sat EOB for dressing. Pt had good r ecall of precautions, but continues to need VC'sa for maintaining precautions during ADL's. Education: review of spinal precautions Treatment Provided: ADL training Patient Status/Goals Reflects last filed data of patient status; may be from multiple contributors. ADLs . Bathing, Level of Arjay: supervision required, verbal cues required Bathing Assess/Train, Position: standing Bathing Assess/Train, Impairments: decreased flexibility, ROM decreased . UB Dressing, Level of Arjay: verbal cues required, set up required UB Dressing Assess/Train, Position: sitting UB Dressing Assess/Train, Impairments: decreased flexibility, ROM decreased R AFO and fasten LB, Level of Arjay: minimum assist (75% patient effort) Assistive Device: industrial recruiter, sock-aid LB Dressing Assess/Train, Position: standing, sitting LB Dressing Assess/Train, Impairments: decreased flexibility, ROM decreased, coordination i mpaired Toileting, Level of Arjay: supervision required Assistive Device: urinal Toileting Assess/Train, Position: standing . Grooming, Level of Arjay: set up required Assistive Device: electric razor, electric toothbrush Grooming Assess/Train, Position: standing Transfers Toilet, Level of Arjay: supervision required Toilet, Assistive Device: 4 wheeled walker (4WW) STG Goals OT Additional Goal #1: Caregiver will demonstrate safe & appropriate assistance to complete ADLs, functional mobility. Time to Achieve: 2 days Goal Status: continued, progressing toward goal OT Additional Goal #2: Pt will be able to demonstrate safe implementation of his spinal pre cautions w/i ADLs, functional mobility. Time to Achieve: 2 days Goal Status: continued, progressing toward goal Assessment: Ptcontinues to require supervision and VC's During ADL's, Pt's is aware of this. Pt will benefit from home health services at D/C of OT, PT, bath aid for safe trans ition home d/t pt's difficulty with recall of new items learned. Occupational Therapy Anticipated Discharge Needs are: home with assist, home with home health Have the anticipated discharge needs changed? no Post discharge occupational therapy recommendation: Home Health Services Plan for next treatment: 1P, DV, ADL's,shower if pt dose not D/C home later today Electronically signed by: CHEMO Melendez, 07/17/2016 8:55 lan of Care - Cherie Chavez RN - 07/17/2016 5:43 AM PDTProblem: Patient Care Overview (Adult) Goal: Care Team Goals & Evaluation PROBLEM-RELATED GOALS: 1- Pt will have increased PT/OT strength and mobility RLE by 09/19/15. 2. Pt will have no therapeutic PT INR and labs by 09/19/15. 3. Pt will be at baseline neuro with slight RLE deficit by 09/19/15. 4. Pt will have adequate I/O by 09/19/15. 5. Pt will have baseline o2 sats by 09/19/15. 6. Pt will be supervision to min assist for his ADLs, functional mobility w/i spinal precau tions by 07/18/16. STRATEGY TO ACHIEVE GOALS: Monitor pt activity and PT/OT and use FWW for RLE and wearing LSO-C brace at all times. Monitor pt labs PT/INR every shift and PRN. Monitor neuro every 2 hours and PRN. Monitor pt I/O every 4 hours and PRN. Monitor pt 02 sats and have baseline RA every 4 hours and PRN. - Active participation in OT sessions RESTRAINT-RELATED GOALS: STRATEGIES TO ACHIEVE RESTRAINT GOALS: Outcome: Improving Goal Evaluation: A&Ox4, pt c/o numbness/tingling to bilateral groin/inner thigh region, cap refill less than /equal to 3 sec, lung sounds clear/equal bilaterally on RA, heart rate reg, compression stoc kings on, pt is able to make needs known and calls appropriately. Pupils PERRLA, very slight /almost unoticeable R sided weakness noted 4/5, no other deficits noted. Pt was able to swallow meds tonight w/applesauce w/o difficulties. Pt's chief c/o pain tonight was to his inner bilateral ankles rating it a 5/10; medicated w /5mg Oxycodone. lan of Care - Wa Nikki shukla RN - 07/16/2016 7:31 PM PDTProblem: Patient Care Overview (Adult) Goal: Care Team Goals & Evaluation PROBLEM-RELATED GOALS: 1- Pt will have increased PT/OT strength and mobility RLE by 09/19/15. 2. Pt will have no therapeutic PT INR and labs by 09/19/15. 3. Pt will be at baseline neuro with slight RLE deficit by 09/19/15. 4. Pt will have adequate I/O by 09/19/15. 5. Pt will have baseline o2 sats by 09/19/15. 6. Pt will be supervision to min assist for his ADLs, functional mobility w/i spinal precau tions by 07/18/16. STRATEGY TO ACHIEVE GOALS: Monitor pt activity and PT/OT and use FWW for RLE and wearing LSO-C brace at all times. Monitor pt labs PT/INR every shift and PRN. Monitor neuro every 2 hours and PRN. Monitor pt I/O every 4 hours and PRN. Monitor pt 02 sats and have baseline RA every 4 hours and PRN. - Active participation in OT sessions RESTRAINT-RELATED GOALS: STRATEGIES TO ACHIEVE RESTRAINT GOALS: Outcome: Improving Goal Evaluation: alert and pleasant one person assist with fww incisions intact to back grade c brace occ i nc of urine cms intact calls Proprinal is on a dyphagia advanced general diet thin liquids n eeds cues with swallowing pills lan of Care - Mellissa Cantu, OT - 07/16/2016 4:19 PM PDT Problem: Patient Care Overview (Adult) Goal: Care Team Goals & Evaluation PROBLEM-RELATED GOALS: 1- Pt will have increased PT/OT strength and mobility RLE by 09/19/15. 2. Pt will have no therapeutic PT INR and labs by 09/19/15. 3. Pt will be at baseline neuro with slight RLE deficit by 09/19/15. 4. Pt will have adequate I/O by 09/19/15. 5. Pt will have baseline o2 sats by 09/19/15. 6. Pt will be supervision to min assist for his ADLs, functional mobility w/i spinal precau tions by 07/18/16. STRATEGY TO ACHIEVE GOALS: Monitor pt activity and PT/OT and use FWW for RLE and wearing LSO-C brace at all times. Monitor pt labs PT/INR every shift and PRN. Monitor neuro every 2 hours and PRN. Monitor pt I/O every 4 hours and PRN. Monitor pt 02 sats and have baseline RA every 4 hours and PRN. - Active participation in OT sessions RESTRAINT-RELATED GOALS: STRATEGIES TO ACHIEVE RESTRAINT GOALS: Occupational Therapy Acute Initial Evaluation Note Patient Information Patient Name: Kevin Aleman Sr. Date of : 1945 Age: 71 y.o. History Encounter Diagnoses Code Name Primary? R26.9 Gait abnormality Yes I95.2 Hypotension due to medication Date of Onset: 07/15/16 Past Medical History Diagnosis Date GERD (gastroesophageal [...] L2-3, L3-4, L4-5; Surgeon: William Garcia MD; Lo cation: [facility] Allergies Allergen Reactions Hydrocodone Itching Severe itching Acetaminophen Itching Diphenhydramine Itching Intense itching without rash. Precautions/Limitations: falls, spinal, orthotic/bracing (C-Bracing) Left Upper Extremity Weight-Bearing: (no lifting, pushing, pulling > 5 lbs) Right Upper Extremity Weight-Bearing: (no lifting, pushing, pulling > 5 lbs) Left Lower Extremity Weight-Bearing: full weight-bearing Right Lower Extremity Weight-Bearing: full weight-bearing Evaluation SUBJECTIVE: History of Presenting Problem: Kevin Aleman Sr. is a 71 y.o. who presents to therapy for 71 y/o male with hx of (L) CVA and had recent L2-3, L3-4 Lateral Anterior Int erbody Fusion, L4-5 Transforaminal Lumbar Interbody Fusion, Posterior Instrumentation at L2- 3, L3-4, L4-5 on 07/03/16 was on in pt rehab for therapies was about to be d/c today to home was hypotensive and lethargic last night. Pt was sent to ICU. Orders written for therapi es. Patient is right handed. OT Diagnosis: Impaired ADLs, decreased functional mobility, decreased safety awareness Previous Level of Function: Transferring: independent Ambulation: independent Toileting: independent Bathing: independent Dressing: independent Eating: independent Communication: understands/communicates without difficulty Swallowin-->difficulty swallowing foods Equipment Currently Used at Home: 2 wheeled walker (FWW), other (see comments) (FWW and LSO brace) Prior Functional Level Comment: Pt was Mod I at home and ambulates using SPC. Role/Relationships: Significant Relationships: spouse Parent Marital Status: Provides Primary Care For: no one Living Environment/Accessibility: Lives With: spouse Living Arrangements: house Home Accessibility: no concerns Transportation Available: family or friend will provide Patient s Goals: Going home tomorrow. OT Visit Summary: Pt seen for OT evaluation s/p transfer to ICU stepdown from IRF. Was sc heduled to go home today from IRF. Greeted pt and he continues to recall this OT. is present. Supine-sit w/ supervision, would benefit from increased knee flexion during roll. Completed grooming @ sink, U/LB dressing from recliner @ bedside. assisted in his care . Intermittent verbal cues to sequence, prompts for , techniques, etc. Reviewed OT POC for tomorrow. Occupational Therapy will follow Kevin Aleman Sr. (1-2 addt'l OT visits) . Occupational Therapy Anticipated Discharge Needs: Ongoing occupational therapy required. DC disposition TBD. Post discharge occupational therapy recommendation: home health, pt is motivated participa nt Equipment Recommendations: FWW, industrial recruiter, sock-aid, shower seat Identified Problems Needing Skilled Intervention: Impaired ADLs, decreased functional mob ility, decreased safety awareness, ergonomics and body mechanics, gait, locomotion, and rachna nce, motor function, ROM Planned Interventions:Planned Therapy Interventions: ADL retraining, bed mobility training, transfer training, orthotic fitting/training Patient Status/Goals Reflects last filed data of patient status; may be from multiple contributors. ADLs STanding @ sink Bathing, Level of Arjay: supervision required, verbal cues required Bathing Assess/Train, Position: standing Bathing Assess/Train, Impairments: decreased flexibility, ROM decreased From supine. Assistance to reposition LSO from supine position. UB Dressing, Level of Arjay: verbal cues required, minimum assist (75% patient effor t) UB Dressing Assess/Train, Position: (supine) UB Dressing Assess/Train, Impairments: decreased flexibility, ROM decreased Assist to don R AFO, shoe, fasten LB, Level of Arjay: minimum assist (75% patient effort), verbal cues required Assistive Device: industrial recruiter, sock-aid LB Dressing Assess/Train, Impairments: decreased flexibility, ROM decreased, coordination i mpaired STanding @ sink Grooming, Level of Arjay: set up required Grooming Assess/Train, Position: standing STG Goals OT Additional Goal #1: Caregiver will demonstrate safe & appropriate assistance to complete ADLs, functional mobility. Time to Achieve: 2 days Goal Status: new OT Additional Goal #2: Pt will be able to demonstrate safe implementation of his spinal pre cautions w/i ADLs, functional mobility. Time to Achieve: 2 days Goal Status: new Demonstrates need for referral to other service: Case mgmt/Discharge planning Assessment: Occupational therapy orders received and acknowledged. Objective impairments i nclude impaired ADLs, decreased functional mobility, decreased safety awareness. These impai rments are causing functional limitations with patient s inability to safely & independent ly complete ADLs/fxl mobility. Complexities contributing to the need for skilled therapy inc lude recent transfer to ICU; back fusion. Prognosis: good, to achieve stated therapy goals Patient and/or family has indicated understanding of treatment needs and actively participa marina in the creation of this plan for care. Today's Treatment Start Time: 1119 Stop time: 1210 Time Calculation: 51 minutes Missed Treatment Time: minutes Total Treatment Time: 51 minutes TimedTreatment Code Minutes: 36 minutes Objective: Pt seen for OT evaluation following transfer to ICU from IRF. Please see above for addt'l info on status & outcome. Education: OT POC; safety; spinal precautions Treatment Provided: ADL training; functional mobility; safety awareness Assessment: OT evaluation completed. Pt nearly @ baseline @ transfer to ICU. Demonstrated minimal difficulties in sequencing & processes, however expect this to improve. He will re quire continued assistance from his as planned. D/c likely tomorrow. Follow up 1x vis it to review needs, complete addt'l ADLs, complete family training. Plan for next treatment: 1P,JM.SHower,U/LB dressing,training/education w/ Electronically signed by: Mellissa Cantu OT, 07/16/2016 16:15 lan of Care - B etts, Binh Schmid, ANCILLARY SERVICES MANAGER - 07/16/2016 3:33 PM PDT Problem: Patient Care Overview (Adult) Goal: Care Team Goals & Evaluation PROBLEM-RELATED GOALS: 1- Pt will have increased PT/OT strength and mobility RLE by 09/19/15. 2. Pt will have no therapeutic PT INR and labs by 09/19/15. 3. Pt will be at baseline neuro with slight RLE deficit by 09/19/15. 4. Pt will have adequate I/O by 09/19/15. 5. Pt will have baseline o2 sats by 09/19/15. STRATEGY TO ACHIEVE GOALS: Monitor pt activity and PT/OT and use FWW for RLE and wearing LSO-C brace at all times. Monitor pt labs PT/INR every shift and PRN. Monitor neuro every 2 hours and PRN. Monitor pt I/O every 4 hours and PRN. Monitor pt 02 sats and have baseline RA every 4 hours and PRN. RESTRAINT-RELATED GOALS: STRATEGIES TO ACHIEVE RESTRAINT GOALS: Outcome: Improving Goal Evaluation: BS clear but with fine crackles in bases - PEP started but no prn Albuterol neb needed toda y, SpO2 94% on RA, pt should be discharged tomorrow. Severity Score 5 Class 2 Severity Score 0-4 ITEM 0 1 2 3 4 2 Respiratory History No Smoking history Current tobacco use Up to 10 Pack year history. Simple home regimen Known Pulmonary Disease 20 pack year history Complex Home regimen 30+ pack year history Severe Pulmonary Disease or exacerbation 0 Surgery Status (current admission) No surgery Minor [...] Purse Lip Breathing, Use of accessory muscles 2 Breath Sounds Clear Diminished unilaterally Diminished bilaterally [...] follo ws commands Obtunded, uncooperative, sedated Comatose 0 Oxygen Demand Room air Baseline 1-2 liters 3-6 liters >7 Liters Oxymizer to > 55% 60% or greater Total Severity Score (SS) Class 0-3 1 4-7 2 8-11 3 12-14 4 15+ 5 lan of Care - Dayami Dallas Speech Pathologist - 07/16/2016 1:43 PM PDTProblem: Patient Care Overvi ew (Adult) Goal: Care Team Goals & Evaluation PROBLEM-RELATED GOALS: 1- Pt will have increased PT/OT strength and mobility RLE by 09/19/15. 2. Pt will have no therapeutic PT INR and labs by 09/19/15. 3. Pt will be at baseline neuro with slight RLE deficit by 09/19/15. 4. Pt will have adequate I/O by 09/19/15. 5. Pt will have baseline o2 sats by 09/19/15. STRATEGY TO ACHIEVE GOALS: Monitor pt activity and PT/OT and use FWW for RLE and wearing LSO-C brace at all times. Monitor pt labs PT/INR every shift and PRN. Monitor neuro every 2 hours and PRN. Monitor pt I/O every 4 hours and PRN. Monitor pt 02 sats and have baseline RA every 4 hours and PRN. RESTRAINT-RELATED GOALS: STRATEGIES TO ACHIEVE RESTRAINT GOALS: Speech Therapy Acute Missed Visit (patient unavailable) Note Patient Information Patient Name: Kevin Aleman . Date of : 1945 Age: 71 y.o. Summary: Attempted to see Pt for scheduled session however he was still with OT. TEXTILE STYLIST will re-attempt later as able. Missed Treatment Time: 1 minutes Electronically signed by: Dayami Anthony SPEECH PATHO, 07/16/2016 13:42 eICU Note - Maritza Cruz RN - 07/16/2016 1:00 PM PDTReport given to Jean Pierre STRONG. All questions answered. Will transfer to room 316. lan of Care - Abi Driscoll, PT - 07/16/2016 10:31 AM PDTFormat ting of this note might be different from the original. Problem: Patient Care Overview (Adult) Goal: Care Team Goals & Evaluation PROBLEM-RELATED GOALS: 1- Pt will have increased PT/OT strength and mobility RLE by 09/19/15. 2. Pt will have no therapeutic PT INR and labs by 09/19/15. 3. Pt will be at baseline neuro with slight RLE deficit by 09/19/15. 4. Pt will have adequate I/O by 09/19/15. 5. Pt will have baseline o2 sats by 09/19/15. STRATEGY TO ACHIEVE GOALS: Monitor pt activity and PT/OT and use FWW for RLE and wearing LSO-C brace at all times. Monitor pt labs PT/INR every shift and PRN. Monitor neuro every 2 hours and PRN. Monitor pt I/O every 4 hours and PRN. Monitor pt 02 sats and have baseline RA every 4 hours and PRN. RESTRAINT-RELATED GOALS: STRATEGIES TO ACHIEVE RESTRAINT GOALS: Physical Therapy Acute Re- Evaluation Note Patient Information Patient Name: Kevin Aleman . Date of : 1945 Age: 71 y.o. History Encounter Diagnoses Code Name Primary? R26.9 Gait abnormality Yes I95.2 Hypotension due to medication Date of Onset: 07/16/16 Past Medical History Diagnosis Date GERD (gastroesophageal [...] L2-3, L3-4, L4-5; Surgeon: William Garcia MD; Lo cation: [facility] Allergies Allergen Reactions Hydrocodone Itching Severe itching Acetaminophen Itching Diphenhydramine Itching Intense itching without rash. Precautions/Limitations: falls, spinal, orthotic/bracing (lumbar (C) brace) Left Upper Extremity Weight-Bearing: (no lifting, pushing, pulling > 5 lbs) Right Upper Extremity Weight-Bearing: (no lifting, pushing, pulling > 5 lbs) Left Lower Extremity Weight-Bearing: full weight-bearing Right Lower Extremity Weight-Bearing: full weight-bearing EVALUATION: SUBJECTIVE: History of Presenting Problem: Kevin Aleman Sr. is a 71 y.o. male with hx of (L) CVA and had recent L2-3, L3-4 Lateral Anterior Interbody Fusion, L4-5 Transforaminal Lumbar Interbody Fusion, Posterior Instrumentation at L2-3, L3-4, L4-5 on 07/03/16 was on in pt rehab for therapies was about to be d/c today to home was hypotensive and lethargic las t night. Pt was sent to ICU. PT Diagnosis: Impaired balance, dec.activity tolerance, (R) LE ms weakness.dec.mobility Impairments Found: aerobic capacity/endurance Previous Level of Function: Transferring: independent Ambulation: independent Toileting: independent Bathing: independent Dressing: independent Eating: independent Communication: understands/communicates without difficulty Swallowin-->difficulty swallowing foods Equipment Currently Used at Home: 2 wheeled walker (FWW), other (see comments) (FWW and LSO brace) Prior Functional Level Comment: Pt was Mod I at home and ambulates using SPC. Role/Relationships: Significant Relationships: spouse Parent Marital Status: Provides Primary Care For: no one Living Environment/Accessibility: Lives With: spouse Living Arrangements: house Home Accessibility: no concerns Transportation Available: family or friend will provide Patient s Goals: To return to home and have less LBP. OBJECTIVE : Patient Status/Goals: Reflects last filed data of patient status; may be from multiple contributors. Gait c/o fatigue Level of Arjay : supervision required, verbal cues required Assistive Device: 4 wheeled walker (4WW) Distance (feet): 50' x2 Gait Deviations: hiram decreased, double stance time increased, igxhp-rq-zsetoc ratio dec reased, limb motion velocity decreased, jwh-hk-ngvkh clearance decreased, step length decrea sed Impairments: decreased flexibility, muscle tone abnormal, strength decreased, impaired rachna nce Transfers requited supervision d/t impaired memory for safety. Bed-Chair, Level of Arjay: supervision required, verbal cues required Chair-Bed, Level of Arjay: supervision required, verbal cues required [id number], Assistive Device: 2 wheeled walker (FWW) Safety Issues: step length decreased Impairments: pain, decreased flexibility, strength decreased, impaired balance Bed Mobility Assistive Device: none Supine to Sit, Level of Arjay: modified independence Sit to Supine, Level of Arjay: modified independence Safety Issues: decreased use of legs for bridging/pushing Impairments: pain, decreased flexibility, strength decreased Balance Sitting Balance: Static: good balance Sitting Balance: Dynamic: (G-) Standing Balance: Static: fair balance (stand unsupported) Standing Balance: Dynamic: (F-, need AD to maintain balance) Functional Endurance ambulated 50' and has to stop d/t fatigue ROM L LE ROM: WFL R LE ROM: WFL Strength L LE Strength: grossly graded 4+/5 R LE Strength: hip flex 4/5, knee ext 3+/5, DF 1/5 Muscle Tone Muscle Tone Assessment Muscle Tone Assessment: right-sided extremities Right-Side Extremities Muscle Tone Assessment: (WNL) LUE Muscle Tone Assessment: (WNL) RUE Muscle Tone Assessment: (WNL) LLE Muscle Tone Assessment: (WNL) RLE Muscle Tone Assessment: mildly, extensor, hypertonic STG GOALS Gait Training Goal, Arjay Level: supervision required Assistive Device: 2 wheeled walker (FWW) Distance: 150' Time to Achieve: 2 days Goal Status: new Caregiver Training Goal: Caregiver will be able to verbalized and demonstrate proper guardi ng technique and spinal precautions. Time to Achieve: 2 days Goal Status: new Demonstrates need for referral to other service: Assessment: Physical therapy orders received and acknowledged. Objective impairments inclu de impaired balance and gait, dec.activity tolerance, (R) LE ms weakness. These impairments are causing functional limitations with patient s inability to mobilize at a level that is safe for home d/c. Complexities contributing to the need for skilled therapy include hx of (L) CVA and recent lumbar surgery, and falls at home. Rehabilitation potential: Patient demonstrates good potential to achieve established goals to address the documented impairments by participating in skilled physical therapy services . PLAN: balance training, bed mobility training, neuromuscular re-education, gait training, home ex ercise program, transfer training, strengthening, stair training, manual therapy techniques, patient/family education, orthotic fitting/training Physical Therapy will follow Kevin Aleman Sr. daily until discharge from therapy or di scharged from the hospital. Anticipated days that therapy will be provided: 07/17/16 Physical Therapy Anticipated Discharge Needs: Ongoing PT services required. DC disposition TBD. Post discharge physical therapy recommendation: home health, ongoing low intensity therapy Equipment Recommendations: 2 wheeled walker (FWW) Patient and/or family has indicated understanding of treatment needs and actively participa marina in the creation of this plan for care. Today's Treatment Start Time: 08 Stop time: 0937 Time Calculation: 38 minutes Missed Treatment Time: 0 minutes Total Treatment Time: 38 minutes TimedTreatment Code Minutes: 23 minutes Objective: Treatment Provided: PT re-evaluation completed and tx initiated. Pt was seen for gait, bed mobility and transfer training to improve functional mobility. See below for details. Education: Safe transfers and proper guarding technique. Spouse present in the room. Assessment: No new functional deficits noted. Pt at [facility] when he was on in pt rehab. Pt w as tired this morning and was only able to ambulate x 50'. Pt will benefit from skilled PT services for further caregiver training on car transfers and safe d/c to home. Plan for next treatment: ICU, 1 more visit for safe d/c, CW 1P FWW progressive gait, famil y education Electronically signed by: ABI DRISCOLL, PT, 07/16/2016 10:22 lan of Care - Nicolle Antony COTA - 07/16/2016 7:32 AM PDTProblem: Patient Care Overview (Adult) Goal: Care Team Goals & Evaluation PROBLEM-RELATED GOALS: STRATEGY TO ACHIEVE GOALS: RESTRAINT-RELATED GOALS: STRATEGIES TO ACHIEVE RESTRAINT GOALS: Missed Visit Patient Information Patient Name: Kevin Aleman Sr. Date of : 1945 Age: 71 y.o. The patient was unable to be seen for today's scheduled visit due to Pt transferred to ICU do to change in medical status. Plan: New Orders in chart, Pt will need to be seen by an OTR. Electronically signed by: CHEMO Melendez, 07/16/2016 7:30 lan of Care - Florence Boyd RN - 07/16/2016 6:28 AM PDTProblem: Patient Care Overview (Adult) Goal: Care Team Goals & Evaluation PROBLEM-RELATED GOALS: STRATEGY TO ACHIEVE GOALS: RESTRAINT-RELATED GOALS: STRATEGIES TO ACHIEVE RESTRAINT GOALS: Outcome: Improving Goal Evaluation: SD- L2-5 fusion. Hx CVA 11 years ago. PT/OT rehab. Pt alert and oriented x4. Slightly forge tful at times otherwise every 2 hour neuro WDL. Pupils PERRLA round 2-3 size. Strong good no n productive cough. At 0600 put him on 2L NC d/t desats. Trace edema right ankle. VSS. Dysph keyanna with thin in between. Passed bedside swallow of applesauce and ice water. Hx of falling in hospital couple weeks ago. Band aide to right forearm. LSO brace in place. No falls. Bed alarm, call light within reach. HOB >30 documented in this en counter Plan of Treatment + +------+--------+ + + | Name | Type | Priori | Associated Diagnoses | Order Schedule | | | | ty | | | + +------+--------+ + + | DME: Walker | DME | Routin | Gait abnormality | DME 1 Time for 1 | | | | e | | Occurrences starting | | | | | | 07/16/2016 until | | | | | | 07/16/2016 | + +------+--------+ + + documented as of this encounter Procedures + +--------+ + + + | Procedure Name | Priori | Date/Time | Associated Diagnosis | Comments | | | ty | | | | + +--------+ + + + | PROTIME INR | Routin | 07/17/2016 | | Results for this | | | e | 6:01 AM | | procedure are in the | | | | PDT | | results section. | + +--------+ + + + | CBC WITH | Routin | 07/17/2016 | | Results for this | | DIFFERENTIAL | e | 6:01 AM | | procedure are in the | | | | PDT | | results section. | + +--------+ + + + | BASIC METABOLIC | Routin | 07/17/2016 | | Results for this | | PANEL | e | 6:01 AM | | procedure are in the | | | | PDT | | results section. | + +--------+ + + + | ALT | Routin | 07/16/2016 | | Results for this | | | e | 5:09 AM | | procedure are in the | | | | PDT | | results section. | + +--------+ + + + | EXTRA LAVENDER TOP | Routin | 07/16/2016 | | Results for this | | TUBE | e | 5:09 AM | | procedure are in the | | | | PDT | | results section. | + +--------+ + + + | PROTIME INR | Routin | 07/16/2016 | | Results for this | | | e | 5:09 AM | | procedure are in the | | | | PDT | | results section. | + +--------+ + + + | AST | Routin | 07/16/2016 | | Results for this | | | e | 5:09 AM | | procedure are in the | | | | PDT | | results section. | + +--------+ + + + | ARELI KIRKLAND | Routin | 07/16/2016 | | Results for this | | | e | 12:55 AM | | procedure are in the | | | | PDT | | results section. | + +--------+ + + + documented in this encounter Results CBC with Differential (07/17/2016 6:01 AM PDT) + + + + + + | Component | Value | Ref Range | Performed | Pathologist | | | | | At | Signature | + + + + + + | White Blood | 4.9 | 4.0 - 11.0 K/uL | [facility] | | | Cells | | | [facility] | | | | | [facility] | | | | | | [facility] - | | | | | | LABORATORY | | + + + + + + | Red Blood | 3.73 (L) | 4.30 - 5.70 | [facility] | | | Cells | | M/uL | [facility] | | | | | | [facility] | | | | | | [facility] - | | | | | | LAB[facility]ATORY | | + + + + + + | Hemoglobin | 12.9 (L) | 13.5 - 18.0 | [facility] | | | | | g/dL | [facility] | | | | | | [facility] | | | | | | [facility] - | | | | | | LAB[facility]ATORY | | + + + + + + | Hematocrit | 37.9 (L) | 40.0 - 51.0 % | [facility] | | | | | | [facility] | | | | | | [facility] | | | | | | [facility] - | | | | | | LAB[facility]ATORY | | + + + + + + | MCV | 101.6 (H) | 83.0 - 101.0 fL | [facility] | | | | | | [facility] | | | | | | [facility] | | | | | | [facility] - | | | | | | LAB[facility]ATORY | | + + + + + + | MCH | 34.5 | 28.0 - 35.0 pg | [facility] | | | | | | [facility] | | | | | | [facility] | | | | | | [facility] - | | | | | | LAB[facility]ATORY | | + + + + + + | MCHC | 34.0 | 32.0 - 36.0 | [facility] | | | | | g/dL | [facility] | | | | | | [facility] | | | | | | [facility] - | | | | | | LAB[facility]ATORY | | + + + + + + | RDW-CV | 13.5 | <15.0 % | [facility] | | | | | | [facility] | | | [facility] | [facility] | | | | | | [facility] - | | | | | | LABORATORY | | + + + + + + | Platelet | 334 | 140 - 440 K/uL | [facility] | | | Count | | | [facility] | | | | | | [facility] | | | | | | [facility] - | | | | | | LAB[facility]ATORY | | + + + + + + | MPV | 7.1 | fL | [facility] | | | | | | [facility] | | [facility] | [facility] | | | | | | [facility] - | | | | | | LAB[facility]ATORY | | + + + + + + | % | 69.6 | 45.0 - 82.0 % | [facility] | | | Neutrophils | | | [facility] | | | | | | [facility] | | | | | | [facility] - | | | | | | LAB[facility]ATORY | | + + + + + + | % | 13.2 (L) | 20.0 - 45.0 % | [facility] | | | Lymphocytes | | | [facility] | | | | | | [facility] | | | | | | [facility] - | | | | | | LABORATORY | | + + + + + + | % Monocytes | 13.7 (H) | 4.0 - 12.0 % | [facility] | | | | | | [facility] | | | | | | [facility] | | | | | | [facility] - | | | | | | LAB[facility]ATORY | | + + + + + + | % | 2.1 | 0.0 - 5.0 % | [facility] | | | Eosinophils | | | [facility] | | | | | | [facility] | | | | | | [facility] - | | | | | | LABORATORY | | + + + + + + | % Basophils | 1.4 (H) | 0.0 - 1.0 % | [facility] | | | | | | [facility] | | | | | | [facility] | | | | | | [facility] - | | | | | | LAB[facility]ATORY | | + + + + + + | Absolute | 3.40 | 1.80 - 8.50 | [facility] | | | Neutrophils | | K/uL | [facility] | | | | | | [facility] | | | | | | [facility] - | | | | | | LABORATORY | | + + + + + + | Absolute | 0.60 | 0.60 - 3.20 | [facility] | | | Lymphocytes | | K/uL | [facility] | | | | | | [facility] | | | | | | C[facility] - | | | | | | LABORATORY | | + + + + + + | Absolute | 0.70 | 0.00 - 1.00 | [facility] | | | Monocytes | | K/uL | [facility] | | | | | | [facility] | | | | | | [facility] - | | | | | | LAB[facility]ATORY | | + + + + + + | Absolute | 0.10 | 0.00 - 0.40 | [facility] | | | Eosinophils | | K/uL | [facility] | | | | | | [facility] | | | | | | C[facility] - | | | | | | LABORATORY | | + + + + + + | Absolute | 0.10 | 0.00 - 0.10 | [facility] | | | Basophils | | K/uL | [facility] | | | | | | [...] [facility] [address] | [place] | [phone] | | [facility] | | [id number] | | | - LABORATORY | | | | + + + + + Basic Metabolic Panel (07/17/2016 6:01 AM PDT) + + + + + + | Component | Value | Ref Range | Performed | Pathologist | | | | | At | Signature | + + + + + + | Na | 141 | 136 - 149 | [facility] | | | | | mmol/L | [facility] | | | | | | [facility] | | | | | | [facility] - | | | | | | LAB[facility]ATORY | | + + + + + + | K | 4.2 | 3.5 - 5.1 | [facility] | | | | | mmol/L | [facility] | | | | | | [facility] | | | | | | CENTER - | | | | | | LABORATORY | | + + + + + + | Cl | 108 | 98 - 109 mmol/L | [facility] | | | | | | [facility] | | | | | | [facility] | | | | | | CENTER - | | | | | | LABORATORY | | + + + + + + | CO2 | 26 | 24 - 31 mmol/L | [facility] | | | | | | [facility] | | | | | | [facility] | | | | | | CENTER - | | | | | | LABORATORY | | + + + + + + | Anion Gap | 7 | 3 - 16 mmol/L | [facility] | | | | | | [facility] | | | | | | [facility] | | | | | | [facility] - | | | | | | LABORATORY | | + + + + + + | Glucose | 93 | 70 - 109 mg/dL | [facility] | | | | | | [facility] | | | | | | [facility] | | | | | | C[facility] - | | | | | | LABORATORY | | + + + + + + | BUN | 6 (L) | 7 - 18 mg/dL | [facility] | | | | | | [facility] | | | | | | [facility] | | | | | | CENTER - | | | | | | LABORATORY | | + + + + + + | Creatinine | 0.93 | 0.60 - 1.30 | [facility] | | | | | mg/dL | [facility] | | | | | | [facility] | | | | | | CENTER - | | | | | | LABORATORY | | + + + + + + | eGFR, | >60Comment: GLOMERULAR | >=60 | [facility] | | | non- | FILTRATION | mL/min/1.73m2 | [facility] | | | [place] | RATE,ESTIMATED | | MEDICAL | | | | mL/min/1.19h0Bsec than | | CENTER - | | [...] + + + + | Calcium | 9.0 | 8.3 - 10.5 | [facility] | | | | | mg/dL | [facility] | | | | | | MED[facility] | | | | | | CENTER - | | | | | | LABORATORY | | + + + + + + | BUN/Creatin | 6.5 | | [facility] | | | ine Ratio | | | [facility] | | [...] + | [facility] | [address] | [place] | [phone] | | [facility] | | [address] | | | - LABORATORY | | | | + + + + + Protime INR (07/17/2016 6:01 AM PDT) + + + + + + | Component | Value | Ref Range | Performed | Pathologist | | | | | At | Signature | + + + + + + | Prothrombin | 22.5 (H) | 11.3 - 13.9 | [facility] | | | Time | | seconds | [facility] | | | | | | MEDICAL | | | | | | CENTER - | | | | | | LABORATORY | | + + + + + + | INR | 1.92 (H)Comment: Usual | 0.90 - 1.10 | [facility] | | | | Oral Anticoagulation | | [facility] | | | | Range: 2.0 - | | MEDICAL | | | | 3.0High Level Oral | | CENTER - | [...] + | [facility] | [address] | [place] | [phone] | | [facility] | | [address] | | | - LABORATORY | | | | + + + + + Extra Lavender Top Tube (07/16/2016 5:09 AM PDT) + +-------+ + + + | Component | Value | Ref Range | Performed | Pathologist | | | | | At | Signature | + +-------+ + + + | Extra | Done | | [facility] | | | Lavender | | | [facility] | | | Top Tube | | | MEDICAL | | | [...] + | [facility] | [address] | [place] | [phone] | | [facility] | | [address] | | | - LABORATORY | | | | + + + + + Protime INR (07/16/2016 5:09 AM PDT) + + + + + + | Component | Value | Ref Range | Performed | Pathologist | | | | | At | Signature | + + + + + + | Prothrombin | 20.1 (H) | 11.3 - 13.9 | [facility] | | | Time | | seconds | [facility] | | | | | | MEDICAL | | | | | | CENTER - | | | | | | LABORATORY | | + + + + + + | INR | 1.67 (H)Comment: Usual | 0.90 - 1.10 | [facility] | | | | Oral Anticoagulation | | [facility] | | | | Range: 2.0 - | | MEDICAL | | | | 3.0High Level Oral | | CENTER - | [...] + | [facility] | [address] | [place] | [phone] | | [facility] | | [address] | | | - LABORATORY | | | | + + + + + AST (07/16/2016 5:09 AM PDT) + +-------+ + + + | Component | Value | Ref Range | Performed | Pathologist | | | | | At | Signature | + +-------+ + + + | AST | 27 | 10 - 42 U/L | [facility] | | | | | | [facility] [...] + | [facility] | [address] | [place] | [phone] | | [facility] | | [address] | | | - LABORATORY | | | | + + + + + ALT (07/16/2016 5:09 AM PDT) + +-------+ + + + | Component | Value | Ref Range | Performed | Pathologist | | | | | At | Signature | + +-------+ + + + | ALT | 16 | 6 - 45 U/L | [facility] | | | | | | [facility] [...] + + | [facility] | [address] | [place] | [phone] | | [facility] | | [address] | | | - LABORATORY | | | | + + + + + Culture, MRSA (07/16/2016 12:55 AM PDT) + + + + + + | Component | Value | Ref Range | Performed | Pathologist | | | | | At | Signature | + + + + + + | Culture | Negative for MRSA by | | [facility] | | | | chromogenic agar method | | [facility] | | | | | | MEDICAL | | | | | | CENTER - | | | | | | LABORATORY | | + + + + + + + + | Specimen | + + | Respiratory - Both | | anterior nares (body | | structure) | + + + + + + + | Performing | Address | City/State/Zipcode | Phone Number | | Organization | | | | + + + + + | [facility] | [address] | [place] | [phone] | | [facility] | | [address] | | | - LABORATORY | | | | + + + + + documented in this encounter Visit Diagnoses + + | Diagnosis | + + | Hypotension due to medication - Primary | + + | Gait abnormality Abnormality of gait | + + documented in this encounter Administered Medications + +--------+ +-------+------+------+ | Medication Order | MAR | Action | Dose | Rate | Site | | | Action | Date | | | | + +--------+ +-------+------+------+ | atorvaSTATin (LIPITOR) tablet | Given | 07/16/20 | 40 mg | | | | 40 mg 40 mg, Oral, NIGHTLY, | | 16 8:52 | | | | | First dose (after last | | PM PDT | | | | | modification) on Fri07/16/16 at | | | | | | | 2100 | | | | | | + +--------+ +-------+------+------+ +---+---+ | | | +---+---+ + +-------+ +-------+---+---+ | baclofen (LIORESAL) tablet 10 | Given | 07/17/20 | 10 mg | | | | mg 10 mg, Oral, 2 TIMES DAILY, | | 16 8:13 | | | | | First dose (after last | | AM PDT | | | | | modification) on Fri07/16/16 at | | | | | | | 0900 | | | | | | + +-------+ +-------+---+---+ +-------+ +-------+---+---+ | Given | 07/16/20 | 10 mg | | | | | 16 4:09 | | | | | | PM PDT | | | | +-------+ +-------+---+---+ | Given | 07/16/20 | 10 mg | | | | | 16 9:08 | | | | | | AM PDT | | | | +-------+ +-------+---+---+ +---+---+ | | | +---+---+ + +-------+ +-------+---+---+ | baclofen (LIORESAL) tablet 20 | Given | 07/16/20 | 20 mg | | | | mg 20 mg, Oral, NIGHTLY, First | | 16 8:52 | | | | | dose (after last modification) on | | PM PDT | | | | | 07/16/16 at 2100 | | | | | | + +-------+ +-------+---+---+ +---+---+ | | | +---+---+ + +-------+ +-------+---+---+ | citalopram (celeXA) tablet 40 | Given | 07/17/20 | 40 mg | | | | mg 40 mg, Oral, DAILY, First | | 16 8:13 | | | | | dose (after last modification) on | | AM PDT | | | | | 07/16/16 at 0900 | | | | | | + +-------+ +-------+---+---+ +-------+ +-------+---+---+ | Given | 07/16/20 | 40 mg | | | | | 16 9:08 | | | | | | AM PDT | | | | +-------+ +-------+---+---+ +---+---+ | | | +---+---+ + +-------+ +-------+---+ + | enoxaparin (LOVENOX) 40 mg/0.4 | Given | 07/17/20 | 40 mg | | Abdomen- | | mL injection 40 mg 40 mg, | | 16 8:13 | | | RLQ | | Subcutaneous, EVERY 24 HOURS | | AM PDT | | | | | (Daily), First dose (after last | | | | | | | modification) on Fri07/16/16 at | | | | | | | 0900 | | | | | | + +-------+ +-------+---+ + +-------+ +-------+---+ + | Given | 07/16/20 | 40 mg | | Abdomen- | | | 16 9:08 | | | RUQ | | | AM PDT | | | | +-------+ +-------+---+ + +---+---+ | | | +---+---+ + +-------+ +------+---+---+ | finasteride (PROSCAR) tablet 5 | Given | 07/17/20 | 5 mg | | | | mg 5 mg, Oral, DAILY, First dose | | 16 8:16 | | | | | (after last modification) on Tue | | AM PDT | | | | | 07/16/16 at 0900, Reproductive | | | | | | | Risk: Use appropriate handling | | | | | | | precautions., | | | | | | + +-------+ +------+---+---+ +-------+ +------+---+---+ | Given | 07/16/20 | 5 mg | | | | | 16 9:08 | | | | | | AM PDT | | | | +-------+ +------+---+---+ +---+---+ | | | +---+---+ + +-------+ +--------+---+---+ | gabapentin (NEURONTIN) capsule | Given | 07/17/20 | 300 mg | | | | 300 mg 300 mg, Oral, 3 TIMES | | 16 8:13 | | | | | DAILY, First dose (after last | | AM PDT | | | | | modification) on Fri07/16/16 at | | | | | | | 0900 | | | | | | + +-------+ +--------+---+---+ +-------+ +--------+---+---+ | Given | 07/16/20 | 300 mg | | | | | 16 8:52 | | | | | | PM PDT | | | | +-------+ +--------+---+---+ | Given | 07/16/20 | 300 mg | | | | | 16 4:09 | | | | | | PM PDT | | | | +-------+ +--------+---+---+ +---+---+ | | | +---+---+ + +-------+ +---+---+---+ | miconazole (MICATIN) 2% powder | Given | 07/17/20 | | | | | Topical, 2 TIMES DAILY, First | | 16 8:16 | | | | | dose (after last modification) on | | AM PDT | | | | | Fri07/16/16 at 0900, Apply to | | | | | | | groin and becky area, | | | | | | + +-------+ +---+---+---+ +-------+ +---+---+---+ | Given | 07/16/20 | | | | | | 16 8:55 | | | | | | PM PDT | | | | +-------+ +---+---+---+ | Given | 07/16/20 | | | | | | 16 11:37 | | | | | | AM PDT | | | | +-------+ +---+---+---+ +---+---+ | | | +---+---+ + +-------+ +--------+---+---+ | mycophenolate (CELLCEPT) | Given | 07/17/20 | 500 mg | | | | capsule 500 mg 500 mg, Oral, | | 16 8:13 | | | | | EVERY MORNING, First dose (after | | AM PDT | | | | | last modification) on Fri07/16/16 | | | | | | | at 0900 | | | | | | + +-------+ +--------+---+---+ +-------+ +--------+---+---+ | Given | 07/16/20 | 500 mg | | | | | 16 9:08 | | | | | | AM PDT | | | | +-------+ +--------+---+---+ +---+---+ | | | +---+---+ + +-------+ +---+---+---+ | nystatin (MYCOSTATIN) cream | Given | 07/17/20 | | | | | Topical, 2 TIMES DAILY, First | | 16 8:16 | | | | | dose (after last modification) on | | AM PDT | | | | | 07/16/16 at 0900, Rash facial | | | | | | | folds, | | | | | | + +-------+ +---+---+---+ +-------+ +---+---+---+ | Given | 07/16/20 | | | | | | 16 8:55 | | | | | | PM PDT | | | | +-------+ +---+---+---+ | Given | 07/16/20 | | | | | | 16 11:37 | | | | | | AM PDT | | | | +-------+ +---+---+---+ +---+---+ | | | +---+---+ + +-------+ +--------+---+---+ | oxyCODONE (ROXICODONE) tablet | Given | 07/16/20 | 2.5 mg | | | | 2.5 mg 2.5 mg, Oral, EVERY 4 | | 16 7:46 | | | | | HOURS PRN, Pain, Starting Tue | | AM PDT | | | | | 07/16/16 at 0009, Discharge | | | | | | | Readmit | | | | | | + +-------+ +--------+---+---+ +---+---+ | | | +---+---+ + +-------+ +------+---+---+ | oxyCODONE (ROXICODONE) tablet 5 | Given | 07/17/20 | 5 mg | | | | mg 5 mg, Oral, EVERY 4 HOURS | | 16 6:36 | | | | | PRN, Pain, Starting 07/16/16 | | AM PDT | | | | | at 1121, Discharge Readmit | | | | | | + +-------+ +------+---+---+ +-------+ +------+---+---+ | Given | 07/16/20 | 5 mg | | | | | 16 10:49 | | | | | | PM PDT | | | | +-------+ +------+---+---+ | Given | 07/16/20 | 5 mg | | | | | 16 11:33 | | | | | | AM PDT | | | | +-------+ +------+---+---+ +---+---+ | | | +---+---+ + +-------+ +-------+---+---+ | pantoprazole (PROTONIX) DR | Given | 07/17/20 | 40 mg | | | | tablet 40 mg 40 mg, Oral, DAILY | | 16 6:36 | | | | | BEFORE BREAKFAST, First dose | | AM PDT | | | | | (after last modification) on Fri | | | | | | | 07/16/16 at 0730, Do not cut or | | | | | | | crush. Therapeutic Interchange | | | | | | | for omeprazole., | | | | | | + +-------+ +-------+---+---+ +-------+ +-------+---+---+ | Given | 07/16/20 | 40 mg | | | | | 16 7:46 | | | | | | AM PDT | | | | +-------+ +-------+---+---+ +---+---+ | | | +---+---+ + +-------+ +--------+---+---+ | potassium chloride (K-DUR) ER | Given | 07/17/20 | 20 mEq | | | | tablet 20 mEq 20 mEq, Oral, 2 | | 16 8:13 | | | | | TIMES DAILY, First dose (after | | AM PDT | | | | | last modification) on 07/16/16 | | | | | | | at 0900 | | | | | | + +-------+ +--------+---+---+ +-------+ +--------+---+---+ | Given | 07/16/20 | 20 mEq | | | | | 16 8:52 | | | | | | PM PDT | | | | +-------+ +--------+---+---+ | Given | 07/16/20 | 20 mEq | | | | | 16 9:08 | | | | | | AM PDT | | | | +-------+ +--------+---+---+ +---+---+ | | | +---+---+ + +-------+ +------+---+---+ | tiZANidine (ZANAFLEX) tablet 4 | Given | 07/16/20 | 4 mg | | | | mg 4 mg, Oral, NIGHTLY, First | | 16 5:23 | | | | | dose (after last modification) on | | PM PDT | | | | | Fri07/16/16 at 1800 | | | | | | + +-------+ +------+---+---+ +---+---+ | | | +---+---+ + +-------+ +-------+---+---+ | warfarin (COUMADIN) tablet 10 | Given | 07/16/20 | 10 mg | | | | mg 10 mg, Oral, Once - Warfarin, | | 16 5:23 | | | | | First dose (after last | | PM PDT | | | | | modification) on Fri07/16/16 at | | | | | | | 1800, For 1 dose, Reproductive | | | | | | | Risk: Use appropriate handling | | | | | | | precautions. Drug education | | | | | | | required., Discharge Readmit | | | | | | + +-------+ +-------+---+---+ +---+---+ | | | +---+---+ documented in this encounter
--- OUTSIDE RECORDS SUMMARY | ~2020-06-26 | XMS | Encounter Summary ---
Demographics + + + | Address | [address] | | | [place] [address] | + + + | Home Phone [...] + | Author | [facility] | | | and [place] [...] [place] | | | | | [phone] | | + + + + + Care Team Providers + +------+ + | Care Protection Manager Name | Role | Phone | + +------+ + | Harris Sauceda MD | PCP | | + +------+ + Encounter Details +--------+ + + + + | Date | Type | Department | Care Team | Description | +--------+ + + + + | 02/08/ | Orders Only | [facility] [place] | [place], | Lumbar radiculopathy | | 2020 | | NEUROSURGERY [address] | PA-C [address] | (Primary Dx) | | | | [address] | [address] [place] | | | | | [place], [place] | [place] [address] | | | | | [phone] | [phone] | | | | | [phone] | | | +--------+ + + + [...] on filedocumented as of this encounter Results XR Lumbar Spine 4 + Vw (02/28/2020 10:14 AM PDT) + + | Specimen | + + | | + + + + + | Impressions | Performed At | + + + | No radiographic evidence for an interval complication. | [facility] | | Dictated and Signed by: Saji Waldron MD Electronically signed: | | | 02/28/2020 10:44 AM | | + + + + + + | Narrative | Performed At | + + + | EXAM:XR LUMBAR SPINE 4 + VW CLINICAL HISTORY: back pain | [facility] | | COMPARISON: Lumbar spine radiographs dating to 10/11/2016 FINDINGS: | | | Frontal and lateral views of the Lumbar spine. Posterior and | | | interbody fusion changes are present at L2-L5. The hardware is | | | intact. There is no change in position of the interbody graft | | | markers. There is no change in spinal alignment. There are no | | | interval compression deformities. No significant progression of | | | adjacent level disease. Stable mild compression deformities of T12 | | | and L1. | | + + + + + | Procedure Note | + + | Regino Andrea Results In 02/28/2020 10:47 AM PDT EXAM:XR LUMBAR SPINE 4 + VW | | | | CLINICAL HISTORY: back pain | | | | COMPARISON: Lumbar spine radiographs dating to 10/11/2016 | | | | FINDINGS: Frontal and lateral views of the Lumbar spine. Posterior and interbody | | fusion changes are present at L2-L5. The hardware is intact. There is no change | | in position of the interbody graft markers. There is no change in spinal | | alignment. There are no interval compression deformities. No significant | | progression of adjacent level disease. Stable mild compression deformities of | | T12 and L1. | | | | IMPRESSION: | | | | No radiographic evidence for an interval complication. | | | | Dictated and Signed by: Saji Waldron MD | | Electronically signed: 02/28/2020 10:44 AM | + + + +---------+ + + | Performing | Address | City/State[facility] | Phone Number | | Organization | | | | + +---------+ + + | [facility] | | | | + +---------+ + + documented in this encounter Visit Diagnoses + + | Diagnosis | + + | Lumbar radiculopathy - Primary Thoracic or lumbosacral neuritis or radiculitis, | | unspecified | + + documented in this encounter"
--- OUTSIDE RECORDS SUMMARY | ~2020-06-26 | XMS | Encounter Summary ---
Demographics + + + | Address | [address] | | | [place] [address] | + + + | Home Phone | | + + + | Preferred Language | Unknown | + + + | Marital Status | | + + + | Latter Day Affiliation | Unknown | + + + | Race | White | + + + | Ethnic Group | Not or | + + + Author + + + | Author | [facility] | | | and [place] [...] [place] | | | | | [address] | | + + + + + Care Team Providers + +------+ + | Care On Air Director Name | Role | Phone | + +------+ + | Almas Licea MD | PCP | | + +------+ + Reason for Visit + + + | Reason | Comments | + + + | Back Pain | | + + + Encounter Details +--------+ + + + + | Date | Type | Department | Care Team | Description | +--------+ + + + + | 05/11/ | Emergency | [facility] | Binh Miller | Lumbar compression | | 2015 | | [facility] | Jerrod Medeiros MD | fracture, closed, | | | | CENTER [address] | [address] | initial encounter | | | | [place] | [place], [place] | ([facility]) (Primary Dx); | | | | [phone] | [phone] | Contusion, hip and | | | | [phone] | | thigh, right, | | | | | | initial encounter | +--------+ + + + + Social [...] + + + | Blood Pressure | 124/76 | 05/11/2015 12:03 PM | | | | | PDT | | + + + + + | Pulse | 72 | 05/11/2015 12:03 PM | | | | | PDT | | + + + + + | Temperature | 35.6 C (96.1 F) | 05/11/2015 9:11 AM | | | | | PDT | | + + + + + | Respiratory Rate | 16 | 05/11/2015 9:11 AM | | | | | PDT | | + + + + + | Oxygen Saturation | 91% | 05/11/2015 12:03 PM | | | | | PDT | | + + + + + | Inhaled Oxygen | - | - | | | Concentration | | | | + + + + + | Weight | - | - | | + + + + + | Height | - | - | | + + + + + | Body Mass Index | - | - | | + + + + + documented in this encounter Discharge Instructions Instructions Binh Miller MD - 05/11/2015Follow-up with Dr. Bah. Leland e pain medication as needed. Try to stay mobile and walking. Return for sore severe worsen ing pain weakness or some difficulty with ambulation. documented in this encounter Medications at Time of Discharge + + + +---------+ + + | Medication | Sig | Dispensed | Refills | Start | End Date | | | | | | Date | | + + + +---------+ + + | amLODIPine | as directed | | 0 | 05/29/20 | | | (NORVASC) 5 mg | | | | 12 | 6 | | tablet | | [...] + +---------+ + + | citalopram | as directed | | 0 | 05/29/20 | | | (CELEXA) 20 mg | | | | 12 | 6 | | tablet | | [...] +---------+ + + | oxyCODONE | Take 1-2 tablets by | 30 | 0 | 05/11/20 | | | (ROXICODONE) 5 mg | mouth every 6 hours | tablet | | 15 | 6 | | tablet | as needed for Pain. | | | | | + + + +---------+ + + | simvastatin | as directed | | 0 | 05/29/20 | | | (ZOCOR) 40 mg tablet | | | | 12 | 6 | + + + +---------+ + + | tizanidine | Take 1 capsule by | 180 | 4 | 08/31/20 | | | (ZANAFLEX) 4 MG | mouth 3 times daily. | capsule | | 13 | 5 | | capsuleIndications: | | | | | | | Myofascial pain | | | | | | | dysfunction | | | | | | | syndrome, | | | | | | | Spasticity, | | | | | | | Mechanical back pain | | | | | | + + + +---------+ + + | WARFARIN SODIUM PO | Take 5 mg by mouth. | | 0 | 05/29/20 | | | | Some days 2. 5 and | | | 12 | 6 | | | some days 5 | | | | | + + + +---------+ + + documented as of this encounter ED Notes Filippo Pressley RN - 05/11/2015 12:23 PM PDTDischarged home with [facility] arBinh willoughby MD - 05/11/2015 9:15 AM PDTFormatting of this note might be different from the maria luisa hernandez. [facility] Kevin Aleman . Emergency Department Encounter Note [address] [place] [id number] PCP:Almas Licea [phone] eMERGENCY dEPARTMENT eNCOUnter CHIEF COMPLAINT Chief Complaint Patient presents with Back Pain TRIAGE ED Triage Notes Filippo Pressley RN 05/11/2015 9:11 Arrives to ED with Hx of a fall 1 week ago when cane slipped out from under him, brusing h ip and causing lower back pain that has increased each day. HPI Kevin Aleman Sr. is a 69 y.o. male who presents ongoing lower back pain and hip pain s tatus post fall. He fell partly one week ago his pain has been quite uncontrollable althoug h he states he is not taking his much pain medicine as he should he doesn't like the feeling of pain medicine and he tried taking some hydrocodone from his and he got somewhat itc hy. Patient states sometimes he takes aspirin or sometimes takes generic ibuprofen for pain control. He knows he is not supposed to be taking those due to Coumadin therapy. Patient does have some bruising to his right hip he also has pain into that region as well as pain t o his lower back region. Patient states he has decreased ability to stand and walk secondar y to this pain. He has a long history of difficulty walking secondary to prior CVA. Currently patient has ongoing right hip pain and right lower back pain. 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 WARFARIN SODIUM PO Take 5 mg by mouth. Some days 2. 5 and some days 5 ALLERGIES Allergies Allergen Reactions Acetaminophen Itching FAMILY HISTORY Family History Problem Relation Age of Onset Stroke Mother Stroke Father Cancer Father SOCIAL HISTORY History Social History Marital Status: Spouse Name: N/A Number of Children: N/A Years of Education: N/A Social History Main Topics Smoking status: Former Smoker Quit date: 09/15/2001 Smokeless tobacco: Never Used Alcohol Use: Yes Drug Use: No Sexual Activity: None Other Topics Concern None Social History Narrative REVIEW OF SYSTEMS Please see HPI, All systems negative except as marked. Twelve point review of system comp leted my me. PHYSICAL EXAM VITAL SIGNS: Temp: 35.6 C (96.1 F) Pulse: 94 Resp: 16 SpO2: 94 % BP: 113/72 mmHg Constitutional: Well developed, Well nourished, Non-toxic appearance. HENT: Normocephalic, Atraumatic, Bilateral external ears normal, Oropharynx moist, No oral exudates, Nose normal. Neck- Normal range of motion, No tenderness, Supple, No stridor. Eyes: PERRL, EOMI, Conjunctiva normal, No discharge. Respiratory: Normal breath sounds, No respiratory distress, No wheezing, No chest tenderne ss. Cardiovascular: Normal heart rate, Normal rhythm, No murmurs, No rubs, No gallops. GI: Bowel sounds normal, Soft, No tenderness, No masses, No pulsatile masses. : defered Musculoskeletal: All others -Intact distal pulses, No edema, No tenderness, No cyanosis, N o clubbing. Good range of motion in all major joints. No tenderness to palpation or major de formities noted. Noted bruising to the right hip and to right hip. Patient with has limit range of motion on the right hip. Back:- No tenderness. Skin: Warm, Dry, No erythema, No rash. CT of the lumbar spine and right hip-results do not show acute fracture in the hip he does have an endplate deformity of T12 on the lumbar spine. This appears to be a compression fra cture. ED COURSE & MEDICAL DECISION MAKING Pertinent Labs & Imaging studies reviewed. (See chart for details) Nursing notes reviewed. Patient feels better status post pain medication administration. Follow-up Information Follow up with Elbert Estrada MD. Specialty: Physical Medicine and Rehabilitation Contact information: [address] [place] [id number] Patient's xrays results were discussed with the patient at the bedside. He does have a com pression fracture in T12. He has minimal pain at that site. Most of his pain is in the rig ht hip. Currently patient is feeling better status post the medication administration. We're celestino archuleta a prescription for oxycodone he is to return for severe symptoms and follow-up his primar y care physician. New Prescriptions OXYCODONE (ROXICODONE) 5 MG TABLET Take 1-2 tablets by mouth every 6 hours as needed fo r Pain. Discharge Instructions Follow-up with Dr. Bah. Take pain medication as needed. Try to stay mobile and walk ing. Return for sore severe worsening pain weakness or some difficulty with ambulation. FINAL IMPRESSION 1. Lumbar compression fracture, closed, initial encounter ([facility]) 2. Contusion, hip and thigh, right, initial encounter Portions of this chart may have been created with [employer] voice recognition software. Occasi onal wrong-word or sound-alike substitutions may have occurred due to the inherent murphy itations of voice recognition software. Please read the chart carefully and recognize, using context, where these substitutions have occurred Binh Miller MD 05/11/15 1203 documented in this encounter Miscellaneous Notes ED Triage Notes - Filippo Pressley RN - 05/11/2015 9:10 AM PDTArrives to ED with Hx of a f all 1 week ago when cane slipped out from under him, brusing hip and causing lower back pain that has increased each day. 9:1 1 AM PDTdocumented in this encounter Plan of Treatment Not on filedocumented as of this encounter Procedures + +--------+ + + + | Procedure Name | Priori | Date/Time | Associated Diagnosis | Comments | | | ty | | | | + +--------+ + + + | CT HIP RIGHT WO | Routin | 05/11/2015 | | Results for this | | CONTRAST | e | 10:10 AM | | procedure are in the | | | | PDT | | results section. | + +--------+ + + + | CT LUMBAR SPINE WO | STAT | 05/11/2015 | | Results for this | | CONTRAST | | 10:10 AM | | procedure are in the | | | | PDT | | results section. | + +--------+ + + + documented in this encounter Results CT Hip Right wo Contrast (05/11/2015 10:10 AM PDT) + + | Specimen | + + | | + + + + + | Narrative | Performed At | + + + | CT RIGHT HIP WITHOUT CONTRAST: 05/11/2015 9:53 AM CLINICAL | [facility] | | HISTORY: pain, s/p fall COMPARISON:None TECHNIQUE: Axial | | | images are obtained through the right hip region. Study is reviewed | | | in multiplanar reformations. FINDINGS: Femoral acetabular joint | | | relationships are normal. No proximal femur or periacetabular | | | fractures. Mild hip joint space narrowing with normal appearance of | | | the subchondral bone. Small superior joint margin acetabular | | | osteophyte. No joint effusion. No adjacent soft tissue | | | abnormalities. IMPRESSION - 1. Early osteoarthritic changes of | | | the right hip. No acute traumatic abnormality. Dictated and | | | Signed by: Shamir Centeno MD Electronically signed: 05/11/2015 | | | 10:43 AM | | + + + + + | Procedure Note | + + | Emre, Rad Results In - 05/11/2015 10:[address] RIGHT HIP WITHOUT CONTRAST: | | 05/11/2015 9:53 AMCLINICAL HISTORY: pain, s/p fallCOMPARISON:NoneTECHNIQUE: Axial images | | are obtained through the right hip region. Study isreviewed in multiplanar | | reformations.FINDINGS: Femoral acetabular joint relationships are normal. No proximal | | femur orperiacetabular fractures.Mild hip joint space narrowing with normal appearance | | of the subchondral bone.Small superior joint margin acetabular osteophyte.No joint | | effusion. No adjacent soft tissue abnormalities.IMPRESSION -1. Early osteoarthritic | | changes of the right hip. No acute traumaticabnormality.Dictated and Signed by: Shamir | | MD Jacobo Electronically signed: 05/11/2015 10:43 AM | |FINDINGS: | |Femoral acetabular joint relationships are normal. No proximal femur or | |periacetabular fractures. | |Mild hip joint space narrowing with normal appearance of the subchondral bone. | |Small superior joint margin acetabular osteophyte. | | | |No joint effusion. No adjacent soft tissue abnormalities. | | | |IMPRESSION - | |1. Early osteoarthritic changes of the right hip. No acute traumatic | |abnormality. | | | |Dictated and Signed by: Shamir Centeno MD | | Electronically signed: 05/11/2015 10:43 AM | + + + +---------+ + + | Performing | Address | City/State/Zipcode | Phone Number | | Organization | | | | + +---------+ + + | [facility] | | | | + +---------+ + + CT Lumbar Spine wo Contrast (05/11/2015 10:10 AM PDT) + + | Specimen | + + | | + + + + + | Narrative | Performed At | + + + | CT LUMBAR SPINE WITHOUT CONTRAST: 05/11/2015 9:53 AM CLINICAL | [facility] | | HISTORY: BACK PAIN COMPARISON:Lumbar spine plain radiographs | | | 12/19/2014 TECHNIQUE: Axial images are obtained from T12 to sacrum. | | | Study is reviewed in multiplanar reformations. FINDINGS: There | | | are 5 lumbar-type vertebral bodies. Mild, 20% compression deformity | | | of T12, involving superior endplate depression. This is new when | | | compared to prior exam. Posterior margins of the vertebral body are | | | unchanged. No loss of alignment. No perivertebral hematoma or fluid | | | collection. Other vertebral body heights are normally maintained. | | | Chronic endplate sclerotic changes at L2-L3 with no other focal bony | | | abnormality. Minimal retrolisthesis at L3-L4. Lumbar alignment is | | | otherwise normal. Disc space narrowing and endplate sclerotic | | | changes at L2-L3. Moderate broad-based disc bulge at that level. Mild | | | facet degenerative change. Mild central canal stenosis. Mild disc | | | space narrowing at L3-L4 with mild circumferential disc bulge and mild | | | central canal narrowing Moderate broad-based disc bulge at L4-L5 | | | without significant central canal or foraminal narrowing. Mild facet | | | degenerative changes at L4-L5 and L5-S1. Aortic and iliac intimal | | | calcifications, without aneurysm. No other adjacent soft tissue | | | abnormality. IMPRESSION - 1. New, probably acute 20% compression | | | deformity of T12. This involves only superior endplate depression | | | with no deformity of the posterior margins of the vertebral body. | | | 2. Degenerative spondylitic changes as detailed above. No other acute | | | traumatic abnormality. Dictated and Signed by: Shamir Centeno | | | Electronically signed: 05/11/2015 10:50 AM | | + + + + + | Procedure Note | + + | Emre, Rad Results In - 05/11/2015 10:[address] LUMBAR SPINE WITHOUT CONTRAST: | | 05/11/2015 9:53 AMCLINICAL HISTORY: BACK PAINCOMPARISON:Lumbar spine plain radiographs | | 12/19/2014TECHNIQUE: Axial images are obtained from T12 to sacrum. Study is reviewed | | inmultiplanar reformations.FINDINGS: There are 5 lumbar-type vertebral bodies. Mild, 20% | | compression deformity of T12, involving superior endplate depression.This is new when | | compared to prior exam.Posterior margins of the vertebral body are unchanged. No loss of | | alignment. Noperivertebral hematoma or fluid collection.Other vertebral body heights | | are normally maintained. Chronic endplate scleroticchanges at L2-L3 with no other focal | | bony abnormality.Minimal retrolisthesis at L3-L4. Lumbar alignment is otherwise | | normal.Disc space narrowing and endplate sclerotic changes at L2-L3. Moderatebroad-based | | disc bulge at that level. Mild facet degenerative change. Mildcentral canal | | stenosis.Mild disc space narrowing at L3-L4 with mild circumferential disc bulge and | | mildcentral canal narrowingModerate broad-based disc bulge at L4-L5 without significant | | central canal orforaminal narrowing.Mild facet degenerative changes at L4-L5 and | | L5-S1.Aortic and iliac intimal calcifications, without aneurysm. No other adjacentsoft | | tissue abnormality.IMPRESSION -1. New, probably acute 20% compression deformity of T12. | | This involves onlysuperior endplate depression with no deformity of the posterior | | margins of thevertebral body.2. Degenerative spondylitic changes as detailed above. No | | other acute traumaticabnormality.Dictated and Signed by: Shamir Centeno MD | | Electronically signed: 05/11/2015 10:50 AM | |broad-based disc bulge at that level. Mild facet degenerative change. Mild | |central canal stenosis. | |Mild disc space narrowing at L3-L4 with mild circumferential disc bulge and mild | |central canal narrowing | |Moderate broad-based disc bulge at L4-L5 without significant central canal or | |foraminal narrowing. | |Mild facet degenerative changes at L4-L5 and L5-S1. | | | |Aortic and iliac intimal calcifications, without aneurysm. No other adjacent | |soft tissue abnormality. | | | |IMPRESSION - | |1. New, probably acute 20% compression deformity of T12. This involves only | |superior endplate depression with no deformity of the posterior margins of the | |vertebral body. | | | |2. Degenerative spondylitic changes as detailed above. No other acute traumatic | |abnormality. | | | |Dictated and Signed by: Shamir Centeno MD | | Electronically signed: 05/11/2015 10:50 AM | + + + +---------+ + + | Performing | Address | City/State/Zipcode | Phone Number | | Organization | | | | + +---------+ + + | [facility] | | | | + +---------+ + + documented in this encounter Visit Diagnoses + + | Diagnosis | + + | Lumbar compression fracture, closed, initial encounter (HCC) - Primary | + + | Contusion, hip and thigh, right, initial encounter | + + documented in this encounter Administered Medications + +--------+ +-------+------+------+ | Medication Order | MAR | Action | Dose | Rate | Site | | | Action | Date | | | | + +--------+ +-------+------+------+ | oxyCODONE (ROXICODONE) tablet | Given | 05/11/20 | 10 mg | | | | 10 mg 10 mg, Oral, ONCE, Radha | | 15 11:11 | | | | | 05/11/15 at 1110, For 1 dose | | AM PDT | | | | + +--------+ +-------+------+------+ +---+---+ | | | +---+---+ + +-------+ +-------+---+---+ | traMADol (ULTRAM) tablet 50 mg | Given | 05/11/20 | 50 mg | | | | 50 mg, Oral, ONCE, Radha 05/11/15 | | 15 9:32 | | | | | at 0930, For 1 dose | | AM PDT | | | | + +-------+ +-------+---+---+ +---+---+ | | | +---+---+ documented in this encounter"
--- OUTSIDE RECORDS SUMMARY | ~2020-06-26 | XMS | Encounter Summary ---
Demographics + + + | Address | [address] | | | [place] [address] | + + + | Home Phone | | + + + | Preferred Language | Unknown | + + + | Marital Status | | + + + | Cheondoism Affiliation | Unknown | + + + | Race | White | + + + | Ethnic Group | Not or | + + + Author + + + | Author | [facility] | | | and [place] | [...] [place] | | | | | [address] | | + + + + + Care Team Providers + +------+ + | Care Subacute Nurse Name | Role | Phone | + +------+ + | Almas Licea MD | PCP | | + +------+ + Reason for Visit + +--------+ + | Reason | Onset | Comments | | | Date | | + +--------+ + | Neurosurgery | 04/29/ | | | Appointment | 2016 | | + +--------+ + Encounter Details +--------+ + + + + | Date | Type | Department | Care Team | Description | +--------+ + + + + | 04/29/ | Telephone | [facility] | William Garcia MD | Neurosurgery | | 2017 | | NEUROSURGERY [address] | [address] | Appointment | | | | [address] [address] | [place] [address] | | | | | [place] | [phone] | | | | | [address] | | | | | | [phone] | | | +--------+ + + + [...] this encounter Miscellaneous Notes Telephone Encounter - Jordan Pa - 05/01/2017 9:57 AM PDTCalled patient again to bebo cowart a F/U visit. LM elephon e Encounter - Maritza Almendarez - 04/30/2017 4:17 PM PDTCalled and left a voicemail for clive spain to call back and schedule. elephone Encounter - Matt Sandoval PA-C - 04/30/2017 9:23 AM PDTHe should have a follow-up appointment i n our office to evaluate his symptomsElectronically signed by Matt Sandoval PA-C at 0 04/30/2017 9:24 AM PDTTelephone Encounter - Lauren Rascon Medical Assistant - 04/29/20 9:04 AM PDTPatient calls in today wondering if he is scheduled for any more appointments . Patient is ten months post op and still having pain. Patient is having low left back pain. States that it is a sharp pain that is constant 04/24. He has not found anything that relieves him of this pain. He would like to have an appointment in our office. Please advise. documented in this encounter Plan of Treatment Not on filedocumented as of this encounter Visit Diagnoses Not on filedocumented in this encounter"
--- OUTSIDE RECORDS SUMMARY | ~2020-06-26 | XMS | Encounter Summary ---
Demographics + + + | Address | [address] | | | [place] [address] | + + + | Home Phone | | + + + | Preferred Language | Unknown | + + + | Marital Status | | + + + | Druze Affiliation | Unknown | + + + | Race | White | + + + | Ethnic Group | Not or | + + + Author + + + | Author | [facility] | | | and [place] | + + + | Organization | [facility] | | [...] [place] | | | | | [address] | | + + + + + Care Team Providers + +------+ + | Care Floating Operator Name | Role | Phone | + +------+ + | Almas Licea MD | PCP | | + +------+ + Reason for Visit + +--------+ + | Reason | Onset | Comments | | | Date | | + +--------+ + | Injections | 05/09/ | | | | 2014 | | + +--------+ + Encounter Details +--------+ + + + + | Date | Type | Department | Care Team | Description | +--------+ + + + + | 05/09/ | Telephone | [facility] | Elbert Estrada | Injections | | 2014 | | PHYSIATRY [address] | | | | | [address] | [place], [place] | | | | | [place], [place] | [address] | | | | | [address] | | | | | | [phone] | | | +--------+ + + + [...] this encounter Miscellaneous Notes Telephone Encounter - Elli Jimenez CMA - 05/09/2015 3:21 PM PDTPatient rescheduled for . PCP office notified of procedure and patient will need instructions to get INR to a 1.5 or lower for the day of the procedure. elephone Encounter - Elli Jimenez CMA - 05/09/2015 3:09 PM PDTPatient states h is PCP did not contact him with Coumadin instructions and getting INR to a 1.5 or lower. Cee wing was going to get his calendar and return call to reschedule. elephone Encounter - Maik Yip - 05/09/20 15 1:48 PM PDTPatient calling to report that he had his blood drawn today, as he takes bloo d thinners and the blood test result is: 2.4 - he is wanting to know if he needs to reschedu le his injection? Please call the patient at: [phone]. documented in this encounter Plan of Treatment Not on filedocumented as of this encounter Visit Diagnoses Not on filedocumented in this encounter"
--- OUTSIDE RECORDS SUMMARY | ~2020-06-26 | XMS | Encounter Summary ---
Demographics + + + | Address | [address] | | | [place] [address] | + + + | Home Phone | | + + + | Preferred Language | Unknown | + + + | Marital Status | | + + + | Gnosticist Affiliation | Unknown | + + + | Race | White | + + + | Ethnic Group | Not or | + + + Author + + + | Author | [facility] | | | and [place] | + + + | Organization | [facility] | [...] [place] | | | | | [address] | | + + + + + Care Team Providers + +------+ + | Care Refining Equipment Operator Name | Role | Phone | [...] | | | | | | | DE SPINE | | | | | | [...] + + + + | 07/03/ | Anesthesia | GUY RAMIREZ | Gerardo Heath | | | 2015 | Event | [facility] | MD [place] [address] | | | | | [address] | [place] | | | | | [place], [place] | [place] [address] | | | | | [phone] | | | | | | | | | +--------+ + + + + Anesthesia Record + + + + + | Procedure Name | Responsible | Anesthesia Start | Anesthesia Stop Time | | | Anesthesiologist | Time | | + + + + + | L2-3, L3-4 Lateral | Gerardo Smith | 07/03/16 1041 | 07/03/16 1428 | | Anterior Interbody | MD Ivana | | | | Fusion, L4-5 | | | | | Transforaminal | | | | | Lumbar Interbody | | | | | Fusion, Posterior | | | | | Instrumentation at | | | | | L2-3, L3-4, L4-5 | | | | | (Right Spine Lumbar) | | | | + + + + + +----+---+ + + | Da | T | Event | Comment | | te | i | | | | | m | | | | | e | | | +----+---+ + + | 10 | 1 | | | | /1 | 0 | | | | 9/ | 0 | | | | 20 | 9 | | | | 16 | | | | +----+---+ + + | | 1 | An Checkout | Pre-use anesthesia machine/equipment checkout. | | | 0 | | | | | 2 | | | | | 4 | | | +----+---+ + + | | 1 | An Start | Reassessment prior to anesthesia induction/procedure. | | | 0 | | | | | 4 | | | | | 1 | | | +----+---+ + + | | 1 | Antibiotic | | | | 0 | Given | | | | 4 | | | | | 1 | | | +----+---+ + + | | 1 | Preoxygenat | | | | 0 | ed | | | | 4 | | | | | 4 | | | +----+---+ + + | | 1 | An | | | | 0 | Induction | | | | 4 | | | | | 7 | | | +----+---+ + + | | 1 | an tariq now | | | | 0 | | | | | 4 | | | | | 9 | | | +----+---+ + + | | 1 | An | | | | 0 | Intubation | | | | 4 | | | | | 9 | | | +----+---+ + + | | 1 | AN Bite | | | | 0 | Block | | | | 5 | | | | | 0 | | | +----+---+ + + | | 1 | an tariq now | | | | 0 | | | | | 5 | | | | | 5 | | | +----+---+ + + | | 1 | Quick Note | Patient positioned in the Lateral Decub position with assistance | | | 0 | | of surgical team and OR staff. Eyes checked and free of | | | 5 | | pressure. Neck neutral. Arms less than 90 degrees and PPP. Final | | | 5 | | position confirmed with surgeon before proceeding. | +----+---+ + + | | 1 | Pre-Procedu | | | | 1 | ral Timeout | | | | 0 | Completed | | | | 2 | | | +----+---+ + + | | 1 | Thrall | | | | 1 | 43-degrees | | | | 0 | | | | | 3 | | | +----+---+ + + | | 1 | First | | | | 1 | Inc/Proc St | | | | 0 | | | | | 4 | | | +----+---+ + + | | 1 | Breathing | | | | 1 | Spontaneous | | | | 1 | ly | | | | 7 | | | +----+---+ + + | | 1 | Quick Note | BP baseline paramount with previous history of stroke. Given | | | 1 | | history of ARB uses (last dose yesterday) with administer | | | 4 | | vasopressin bolus to see if long-acting BP trend can be | | | 9 | | maintained. | +----+---+ + + | | 1 | an tariq now | | | | 2 | | | | | 5 | | | | | 0 | | | +----+---+ + + | | 1 | Thrall off | | | | 2 | | | | | 5 | | | | | 0 | | | +----+---+ + + | | 1 | Quick Note | Patient positioned in Prone Position with assistance of surgical | | | 2 | | team and OR staff. Eyes lubricated and tegaderms placed prior | | | 5 | | Face supported in foam face-mask with no pressure from ETT or | | | 5 | | temp probe. Eyes checked and free of pressure. Neck in neutral | | | | | position. Arms less than 90 degrees and PPP. Final position | | | | | confirmed with surgeon before proceeding. | +----+---+ + + | | 1 | Quick Note | Temp 37.4 - ronny kamara off | | | 3 | | | | | 1 | | | | | 0 | | | +----+---+ + + | | 1 | an tariq now | | | | 4 | | | | | 0 | | | | | 4 | | | +----+---+ + + | | 1 | AN No | TOF 4/4 with sustained tetanus. | | | 4 | Residual | | | | 1 | NMB | | | | 3 | | | +----+---+ + + | | 1 | Breathing | | | | 4 | Spontaneous | | | | 1 | ly | | | | 3 | | | +----+---+ + + | | 1 | Moving | | | | 4 | Purposefull | | | | 1 | y | | | | 4 | | | +----+---+ + + | | 1 | Extubated | | | | 4 | Awake | | | | 1 | | | | | 4 | | | +----+---+ + + | | 1 | an tariq now | | | | 4 | | | | | 1 | | | | | 7 | | | +----+---+ + + | | 1 | an stop | | | | 4 | data | | | | 1 | | | | | 8 | | | +----+---+ + + | | 1 | Quick Note | PACU | | | 4 | | | | | 2 | | | | | 3 | | | +----+---+ + + | | 1 | Quick Note | Able to squeeze hands bilaterally - verbalizes no pain. Denies | | | 4 | | any nausea at this time. Neurologically appears to be at | | | 2 | | baseline. | | | 7 | | | +----+---+ + + | | 1 | An Stop | Patient handed off to recovery nurse. | | | 2 | | | | | 8 | | | +----+---+ + + +------+ | Meds | +------+ + + + | Name | Total | + + + | fentaNYL | 100 mcg | + + + | propofol (DIPRIVAN) injection | 100 mg | | (bolus) (20 mL) | | + + + | lidocaine 1% | 60 mg | + + + | succinylcholine | 60 mg | + + + | Phenylephrine 100mcg/mL SYRINGE | 150 mcg | + + + | ePHEDrine | 10 mg | + + + | dexamethasone | 10 mg | + + + | ondansetron | 4 mg | + + + | ketamine | 50 mg | + + + | lidocaine 2% | 145 mg | + + + | dexmedetomidine (Infusion) | 36.25 mcg | + + + | HYDROmorphone | 1.6 mg | + + + | vasopressin | 6 Units | + + + | magnesium sulfate | 1 g | + + + | ceFAZolin (ANCEF, KEFZOL) 2 g in | 2 g | | sodium chloride 0.9% 50 mL IVPB | | + + + | lactated ringers (LR) infusion | 1,600 mL | + + + + + | Name | + + | N2O Flow Rate (L/Min) | + + | O2 Flow Rate (L/Min) | + + | Insp O2 | + + | Exp SEV | + + | Exp TONIO | + + | Air Flow Rate (L/Min) | + + + + | No blood administrations on file. | + + +--------+ + + + | Type | Details | Placement | Removal | +--------+ + + + | Airway | Placement Date: 07/03/16; | 07/03/16 1117 by | 07/03/16 1414 by | | | Placement Time: 1117 (created via | Gerardo Smith | Gerardo Smith | | | procedure documentation); Mask | MD Ivana | MD Ivana | | | Ventilation: EZ; Airway Grade: | | | | | 2b; External Maneuvers: BURP; | | | | | Successful Technique: Mac; | | | | | Laryngoscope Blade Size: 3; | | | | | Attempts: 1; Airway Type: | | | | | endotracheal; Size: 7; Airway | | | | | Tube Secured At: 22; Other | | | | | Equipment: stylette; Placement | | | | | Check: exhaled CO2 detection | | | | | device, bilateral chest rise, | | | | | breath sounds equal bilaterally; | | | | | Removal Date: 07/03/16; Removal | | | | | Time: 1414; Additional Comments: | | | | | EZ BMV, 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 Soft bite block | | | | | placed after examining airway for | | | | | signs of trauma. Small abrasion | | | | | noted on midline upper lip - | | | | | ross applied. | | | +--------+ + + + | Read | 07/03/16; 1124; Left; flank; | 07/03/16 1124 by | 12/08/18 1342 by | | only - | 12/08/18 (Completed/Removed by | Joelle Centeno RN | User Epic | | | Utility); 1342 (Completed/Removed | | | | Incisi | by Utility) | | | | on | | | | +--------+ + + + | Drain/ | 07/03/16; 1402; #1; Left; back; | 07/03/16 1402 by | 07/03/16 1412 by | | Device | collapsible closed device; 10fr | Eliezer Camargo RN | Eliezer Camargo RN | | Site | sheyla aguilar; other (see comments) | | | | | (was never placed, entered by | | | | | error); short term use; 07/03/16; | | | | | 1412 | | | +--------+ + + + | Read | 07/03/16; 1403; Bilateral; back; | 07/03/16 1403 by | 12/08/18 1342 by | | only - | 12/08/18 (Completed/Removed by | Eliezer Camargo RN | User Epic | | | Utility); 1342 (Completed/Removed | | | | Incisi | by Utility) | | | | on | | | | +--------+ + + + | Periph | 07/03/16; 1431 (present at entry | 07/03/16 143 by Leola | 07/04/162233 by | | eral | to pacu); Right; Hand; 20 gauge; | Gumaro Little RN | Filippo Ochoa RN | | IV | other (see comments); Patient | | | | | pulled out ; 07/04/16; 2234 | | | +--------+ + + + [...] encounter OR Notes Anesthesia Postprocedure Evaluation - Gerardo Heath MD - 07/03/2016 2:31 PM PDTFo rmatting of this note might be different from the original. ANESTHESIA POSTANESTHESIA EVALUATION Kevin Aleman Sr. 70 y.o. male 1945 [id number] Procedure(s) L2-3, L3-4 Lateral Anterior Interbody Fusion, L4-5 Transforaminal Lumbar Inte rbody Fusion, Posterior Instrumentation at L2-3, L3-4, L4-5 (Right Spine Lumbar) Cooperates? Yes Mental Status Performs simple tasks. Respiratory Satisfactory - Airway patent (self maintained). Cardiovascular Satisfactory Blood pressure and heart rate acceptable Temperature Satisfactory Pain Satisfactory N/V Control Satisfactory Hydration Satisfactory No signs of dehydration Complications None apparent Filed Vitals: 07/03/16 0800 07/03/16 1423 BP: 155/85 118/73 Pulse: 78 102 Temp: 36.6 C (97.9 F) 36.9 C (98.4 F) Resp: 18 21 SpO2: 95% 92% Electronically signed by Gerardo Heath MD 07/03/2016 14:31 [facility] nesthesia Proc edu Notes - Gerardo Heath MD - 07/03/2016 11:13 AM PDTAssociated Order(s): VANESSA SERRATO NOTEAnesthesia Airway Placement Preprocedure check: patient identified, oxygen, airway assessed, suction, airway equipment checked and patient reassessment prior to induction Rapid Sequence Induction: no Mask ventilation: easy External maneuver: BURP Successful technique: Mac Laryngoscope blade size: 3 Airway grade: 2b (Only posterior extremity of glottis seen or only arytenoid cartilages) Other equipment: stylette Attempts: 1 Airway type: endotracheal Size: 7 Cuffed: cuffed Route, reference point: right side of mouth Tube depth: 22 cm Tube secured with: adhesive tape Trauma: none Tube placement verification: bilateral chest rise, equal bilateral breath sounds and carbon dioxide detection Performing provider: GERARDO HEATH Assisted by: TOMER COTTRELL Comments: EZ BMV, 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 Soft bite block placed after examining airway for signs of trauma. Small abrasion noted on midline upper lip - jelly applied. Electronically Signed by: Gerardo Heath MD ESig date/time: 11:17 nesthesia Prep rocedure Evaluation - Gerardo Heath MD - 07/03/2016 10:29 AM PDT ANESTHESIA PREANESTHESIA EVALUATION Kevin Aleman Sr. 70 y.o. male 1945 [id number] Procedure(s): L2-3, L3-4 Lateral Anterior Interbody Fusion, L4-5 Transforaminal Lumbar Inte rbody Fusion, Posterior Instrumentation at L2-3, L3-4, L4-5 (Right ) Patient Active Problem List Diagnosis FOOT DEFORMITY, [...] cholesterol GERD (gastroesophageal reflux disease) Hypertension Depression Medical history, anesthesia, medications, allergy, NPO status verified histories reviewed. ECG reviewed. Labs reviewed. Review of Systems / Med History Anesthesia History No anesthesia complications. Reports severe hypertension after his endo scopy but other surgeries with no issues. 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 On ASA and coumadin for stroke prevention - bridging with lovenox pre-op. (+) CVA, back pain, weakness, numbness/tingling, chronic pain Psychology (+) depression Renal Lab Results Component Value Date CREA 0.96 06/21/2016 BUN 9 06/21/2016 NA 139 06/21/2016 K 4.2 06/21/2016 CL 103 06/21/2016 CO2 28 06/21/2016 . Gastrointestinal/Hepatic Reports strong gag-reflex since his stroke. (+) reflux/GERD (On PPI - well controlled), hyperlipidemia Endocrine (-) obesity. Other Bridging on lovenox - INR to be sent in pre-op Lab Results Component Value Date INR 1.03 07/03/2016 PROTIME 13.7 07/03/2016 Lab Results Component Value Date WBC 7.0 06/21/2016 HGB 16.4 06/21/2016 HCT 48.9 06/21/2016 MCV 104.7* 06/21/2016 PLT 175 06/21/2016 . (-) anemia, thrombocytopenia Physical Exam Airway MP I, TM >3 FB, Mouth opening >2 FB. Neck: full ROM, Jaw protrusion normal. Dental ; (+) Chipped/Broken teeth and missing teeth.(-) implants(s)/bridges(s)/caps(s). CV cardiovascular normal Rhythm regular. Rate normal. Pulm Clear to auscultation bilaterally. Neuro (+) weakness. Other R-sided weakness in his leg. No speech problems at baseline. Anesthesia Plan ASA 3 Type: General (ETT). Induction: Intravenous. Potential problems: None anticipated. Monitors: Standard ASA monitors. Consent statement:Anesthetic plan, alternatives, risks and benefits discussed with patient and spouse ( present for discussion). Risks discussed included (but were not limited to): pain, respiratory events, dental injury , muscle aches, perioperative CV events, sore throat, nausea, infection, heart problems, del irium, blood transfusion, ICU placement, stroke (All questions answered before proceeding to OR), . Consenting person understands and agrees to proceed. PARQ. Extensive discussion with patient and available family members regarding risks of spine chilango jessica from an anesthesia perspective including positioning risks (including blindness), cardi ac issues, pulmonary problems, blood transfusion, and possible post-op intubation or ICU car e. Further discussed the risk of "stroke-like symptoms" emerging in the post-op setting as gen eral anesthetic can cause transient symptoms that mimic a patient's previous stroke. Also di scussed the risk of new stroke even with bridging of lovenox. . Electronically Signed by: Gerardo Heath MD ESig date/time: 07/03/2016 10:27 documented in t his encounter Plan of Treatment Not on filedocumented as of this encounter Procedures + +--------+ + + + | Procedure Name | Priori | Date/Time | Associated Diagnosis | Comments | | | ty | | | | + +--------+ + + + | ANE AIRWAY NOTE | Routin | 07/03/2016 | | Results for this | | | e | 11:17 AM | | procedure are in the | | | | PDT | | results section. | + +--------+ + + + documented in this encounter Results Anesthesia Airway Note (07/03/2016 11:17 AM PDT) + + + | Narrative | Performed At | + + + | Gerardo Heath MD 07/03/2016 11:17 Anesthesia Airway | | | Placement Preprocedure check: patient identified, oxygen, airway | | | assessed, suction, airway equipment checked and patient reassessment | | | prior to induction Rapid Sequence Induction: no Mask ventilation: | | | easy External maneuver: BURP Successful technique: Mac | | | Laryngoscope blade size: 3 Airway grade: 2b (Only posterior | | | extremity of glottis seen or only arytenoid cartilages) Other | | | equipment: stylette Attempts: 1 Airway type: endotracheal Size: 7 | | | Cuffed: cuffed Route, reference point: right side of mouth Tube | | | depth: 22 cm Tube secured with: adhesive tape Trauma: none Tube | | | placement verification: bilateral chest rise, equal bilateral breath | | | sounds and carbon dioxide detection Performing provider: IVANA, | | | GERARDO SMITH Assisted by: TOMER COTTRELL Comments: EZ | | | BMV, Grade III with BURP and MAC#3 secondary to large epiglottis | | | (recommend MAC#4 or Payan with subsequent intubations). Soft | | | bite block placed after examining airway for signs of trauma. Small | | | abrasion noted on midline upper lip - jelly applied. | | | Electronically Signed by: Gerardo Heath MD | | | ESig date/time: 07/03/2016 11:17 | | | | | + + + documented in this encounter Visit Diagnoses Not on filedocumented in this encounter Administered Medications + +---------+ +------+------+------+ | Medication Order | MAR | Action | Dose | Rate | Site | | | Action | Date | | | | + +---------+ +------+------+------+ | ceFAZolin (ANCEF, KEFZOL) 2 g | New Bag | 07/03/20 | 2 g | | | | in sodium chloride 0.9% 50 mL | | 16 10:41 | | | | | IVPB 2 g, Intravenous, | | AM PDT | | | | | Administer over 30 Minutes, Prior | | | | | | | to Incision, Starting Wed | | | | | | | 07/03/16 at 0846, For 1 dose, | | | | | | | Administer within 1 hour of | | | | | | | surgical incision., Pre-op, | | | | | | | Indications: Surgical Prophylaxis | | | | | | + +---------+ +------+------+------+ +---+---+ | | | +---+---+ + +-------+ +-------+---+---+ | dexamethasone (DECADRON) 10 | Given | 07/03/20 | 10 mg | | | | mg/mL injection Intravenous, | | 16 11:09 | | | | | PRN, Starting Fri07/03/16 at | | AM PDT | | | | | 1109, Anesthesia Intra-op | | | | | | + +-------+ +-------+---+---+ +---+---+ | | | +---+---+ + + + + +-------+---+ | dexmedetomidine (PRECEDEX) 400 | Rate/Dos | 07/03/20 | 5 mcg/hr | 1.3 | | | mcg in 100 mL NS infusion | e Change | 16 1:39 | | mL/hr | | | Intravenous, CONTINUOUS PRN, | | PM PDT | | | | | Starting Fri07/03/16 at 1100, | | | | | | | Anesthesia Intra-op | | | | | | + + + + +-------+---+ + + +--------+-------+---+ | Rate/Dose Change | 07/03/20 | 7.5 | 1.9 | | | | 16 1:08 | mcg/hr | mL/hr | | | | PM PDT | | | | + + +--------+-------+---+ | Rate/Dose Change | 07/03/20 | 10 | 2.5 | | | | 16 1:00 | mcg/hr | mL/hr | | | | PM PDT | | | | + + +--------+-------+---+ +---+---+ | | | +---+---+ + +-------+ +------+---+---+ | ePHEDrine 50 mg/mL injection | Given | 07/03/20 | 5 mg | | | | PRN, Starting 07/03/16 at | | 16 1:14 | | | | | 1104, Anesthesia Intra-op | | PM PDT | | | | + +-------+ +------+---+---+ +-------+ +------+---+---+ | Given | 07/03/20 | 5 mg | | | | | 16 11:04 | | | | | | AM PDT | | | | +-------+ +------+---+---+ +---+---+ | | | +---+---+ + +-------+ +--------+---+---+ | fentaNYL (PF) injection | Given | 07/03/20 | 50 mcg | | | | Intravenous, PRN, Pain, Starting | | 16 10:53 | | | | | 07/03/16 at 1044, Anesthesia | | AM PDT | | | | | Intra-op | | | | | | + +-------+ +--------+---+---+ +-------+ +--------+---+---+ | Given | 07/03/20 | 50 mcg | | | | | 16 10:44 | | | | | | AM PDT | | | | +-------+ +--------+---+---+ +---+---+ | | | +---+---+ + +-------+ +--------+---+---+ | HYDROmorphone (DILAUDID) 2 | Given | 07/03/20 | 0.4 mg | | | | mg/mL injection Intravenous, | | 16 2:17 | | | | | PRN, Pain, Starting Fri07/03/16 | | PM PDT | | | | | at 1059, Anesthesia Intra-op | | | | | | + +-------+ +--------+---+---+ +-------+ +--------+---+---+ | Given | 07/03/20 | 0.2 mg | | | | | 16 1:55 | | | | | | PM PDT | | | | +-------+ +--------+---+---+ | Given | 07/03/20 | 0.2 mg | | | | | 16 12:45 | | | | | | PM PDT | | | | +-------+ +--------+---+---+ +---+---+ | | | +---+---+ + +-------+ +-------+---+---+ | ketamine 50 mg/mL injection | Given | 07/03/20 | 25 mg | | | | PRN, Starting Fri07/03/16 at | | 16 12:41 | | | | | 1044, Anesthesia Intra-op | | PM PDT | | | | + +-------+ +-------+---+---+ +-------+ +-------+---+---+ | Given | 07/03/20 | 25 mg | | | | | 16 10:44 | | | | | | AM [...] +---+---+ + +-------+ +-------+---+---+ | lidocaine (PF) 1% injection | Given | 07/03/20 | 60 mg | | | | Intravenous, PRN, Starting Wed | | 16 10:47 | | | | | 07/03/16 at 1047, Anesthesia | | AM PDT | | | | | Intra-op | | | | | | + +-------+ +-------+---+---+ +---+---+ | | | +---+---+ + + + + +---------+---+ | lidocaine (PF) 2% injection | Rate/Dos | 07/03/20 | 20 mg/hr | 1 mL/hr | | | Intravenous, CONTINUOUS PRN, | e Change | 16 1:39 | | | | | Starting 07/03/16 at 1100, | | PM PDT | | | | | Anesthesia Intra-op | | | | | | + + + + +---------+---+ + + + +---------+---+ | Rate/Dose Change | 07/03/20 | 30 mg/hr | 1.5 | | | | 16 1:08 | | mL/hr | | | | PM PDT | | | | + + + +---------+---+ | Rate/Dose Change | 07/03/20 | 40 mg/hr | 2 mL/hr | | | | 16 1:00 | | | | | | PM PDT | | | | + + + +---------+---+ +---+---+ | | | +---+---+ + +-------+ +-----+---+---+ | magnesium sulfate 500 mg/mL | Given | 07/03/20 | 1 g | | | | injection Intravenous, PRN, | | 16 1:23 | | | | | Starting 07/03/16 at 1323, | | PM PDT | | | | | Anesthesia Intra-op | | | | | | + +-------+ +-----+---+---+ +---+---+ | | | +---+---+ + +-------+ +------+---+---+ | ondansetron (ZOFRAN) injection | Given | 07/03/20 | 4 mg | | | | Intravenous, PRN, Nausea, | | 16 1:04 | | | | | Vomiting, Starting 07/03/16 | | PM PDT | | | | | at 1304, Anesthesia Intra-op | | | | | | + +-------+ +------+---+---+ +---+---+ | | | +---+---+ + +-------+ +--------+---+---+ | phenylephrine (JOHN-SYNEPHRINE) | Given | 07/03/20 | 50 mcg | | | | 100 mcg/mL injection | | 16 11:33 | | | | | Intravenous, PRN, Starting Wed | | AM PDT | | | | | 07/03/16 at 1108, Anesthesia | | | | | | | Intra-op | | | | | | + +-------+ +--------+---+---+ +-------+ +--------+---+---+ | Given | 07/03/20 | 50 mcg | | | | | 16 11:25 | | | | | | AM PDT | | | | +-------+ +--------+---+---+ | Given | 07/03/20 | 50 mcg | | | | | 16 11:08 | | | | | | AM PDT | | | | +-------+ +--------+---+---+ +---+---+ | | | +---+---+ + +-------+ +--------+---+---+ | propofol (DIPRIVAN) injection | Given | 07/03/20 | 100 mg | | | | Intravenous, PRN, Starting Wed | | 16 10:47 | | | | | 07/03/16 at 1047, Anesthesia | | AM PDT | | | | | Intra-op | | | | | | + +-------+ +--------+---+---+ +---+---+ | | | +---+---+ + +-------+ +-------+---+---+ | succinylcholine (ANECTINE) | Given | 07/03/20 | 60 mg | | | | injection Intravenous, PRN, | | 16 10:47 | | | | | Starting 07/03/16 at 1047, | | AM PDT | | | | | Anesthesia Intra-op | | | | | | + +-------+ +-------+---+---+ +---+---+ | | | +---+---+ + +-------+ +---------+---+---+ | vasopressin (PITRESSIN) | Given | 07/03/20 | 1 Units | | | | injection Intravenous, PRN, | | 16 1:36 | | | | | Starting 07/03/16 at 1147, | | PM PDT | | | | | Anesthesia Intra-op | | | | | | + +-------+ +---------+---+---+ +-------+ +---------+---+---+ | Given | 07/03/20 | 1 Units | | | | | 16 1:14 | | | | | | PM PDT | | | | +-------+ +---------+---+---+ | Given | 07/03/20 | 1 Units | | | | | 16 12:54 | | | | | | PM PDT | | | | +-------+ +---------+---+---+ +---+---+ | | | +---+---+ documented in this encounter
--- OUTSIDE RECORDS SUMMARY | ~2020-06-26 | XMS | Encounter Summary ---
Demographics + + + | Address | [address] | | | [place] [address] | + + + | Home Phone [...] + | Author | [facility] | | | and [place] | [...] [place] | | | | | [address] | | + + + + + Care Team Providers + +------+ + | Care District Plant Supervisor Name | Role | Phone | + +------+ + | Harris Sauceda MD | PCP | | + +------+ + Reason for Referral Diagnostic/Screening (Routine) +--------+--------+ + + + + | Status | Reason | Specialty | Diagnoses / | Referred By | Referred To | | | | | Procedures | Contact | Contact | +--------+--------+ + + + + | Closed | | Radiology | Diagnoses | Sauceda, | [facility] | | | | | Lower | Lohith V, MD | [address] | | | | | extremity | [address] | [place], | | | | | edema | [place] | [place] | | | | | Procedures | [place], | [address] | | | | | ECHO | [place] [address] | Phone: | | | | | Complete | Phone: | [phone] | | | | | | [phone] | Fax: | | | | | | Fax: | [phone] | | | | | | [phone] | | +--------+--------+ + + + + Reason for Visit Diagnostic/Screening (Routine) +--------+--------+ + + + + | Status | Reason | Specialty | Diagnoses / | Referred By | Referred To | | | | | Procedures | Contact | Contact | +--------+--------+ + + + + | Closed | | Radiology | Diagnoses | Sauceda, | [facility] | | | | | Lower | Lohith V, MD | [address] | | | | | extremity | [address] | [place], | | | | | edema | [place] | [place] | | | | | Procedures | [place], | [address] | | | | | ECHO | [place] [address] | Phone: | | | | | Complete | Phone: | [phone] | | | | | | [phone] | Fax: | | | | | | Fax: | [phone] | | | | | | [phone] | | +--------+--------+ + + + + Encounter Details +--------+ + + + + | Date | Type | Department | Care Team | Description | +--------+ + + + + | 03/22/ | Hospital [facility] | Harris Sauceda V, | Lower extremity | | 2019 | Encounter | [facility] E[facility] [address] | edema | | | | [place] | [place] | | | | | [place] [address] | [address] | | | | | [phone] | | | +--------+ + + + [...] | + +--------+ + + + | ECHO COMPLETE | Routin | 03/22/2019 | Lower extremity | Results for this | | | e | 1:05 PM | edema | procedure are in the | | | | PDT | | results section. | + +--------+ + + + documented in this encounter Results ECHO Complete (03/22/2019 1:05 PM PDT) + +--------+ + + + | Component | Value | Ref Range | Performed | Pathologist | | | | | At | Signature | + +--------+ + + + | Patient | 145lbs | | [facility] | | | Weight | | | | | | (lbs) | | | | | + +--------+ + + + | Patient | 5'6 | | [facility] | | | Height | | | | | + +--------+ + + + | Inferior | 1.4 | cm | [facility] | | | Vena Cava | | | | | | Diameter at | | | | | | Expiration | | | | | + +--------+ + + + | LVIDd | 4.14 | cm | [facility] | | + +--------+ + + + | FS | 20 | % | [facility] | | + +--------+ + + + | LA volume | 33.55 | mL | [facility] | | + +--------+ + + + | Ascending | 3.51 | cm | [facility] | | | aorta | | | | | + +--------+ + + + | Aortic arch | 3.21 | cm | [facility] | | + +--------+ + + + | AV mean | 1.94 | mmHg | [facility] | | | gradient | | | | | + +--------+ + + + | Aortic | 3.97 | cm2 | [facility] | | | Valve Area | | | | | | by | | | | | | Continuity | | | | | | VTI | | | | | + +--------+ + + + | MV Area by | 2.59 | cm2 | [facility] | | | P 1/2 | | | | | | method | | | | | + +--------+ + + + | IVRT | 83.04 | msec | [facility] | | + +--------+ + + + | LVOT | 2.42 | cm | [facility] | | | diameter | | | | | + +--------+ + + + | LVOT peak | 81.84 | cm/s | [facility] | | | davina | | | | | + +--------+ + + + | LVOT peak | 18.15 | cm | [facility] | | | VTI | | | | | + +--------+ + + + | AV peak davina | 95.17 | cm/s | [facility] | | + +--------+ + + + | AV VTI | 21.01 | cm | [facility] | | + +--------+ + + + | AV peak | 3.62 | mmHg | [facility] | | | gradient | | | | | + +--------+ + + + | MV Pressure | 84.87 | msec | [facility] | | | 1/2 time | | | | | + +--------+ + + + | LA Volume | 19 | mL/m2 | [facility] | | | Index | | | | | + +--------+ + + + | AV LVOT | 2.68 | mmHg | [facility] | | | Peak | | | | | | Gradient | | | | | + +--------+ + + + | AV LVOT | 1.07 | mmHg | [facility] | | | Mean | | | | | | Gradient | | | | | + +--------+ + + + | TR Peak | 18 | mmHg | [facility] | | | Gradient | | | | | + +--------+ + + + | TR Velocity | 214.41 | cm | [facility] | | + +--------+ + + + | LV | 7.34 | cm | [facility] | | | Diastolic | | | | | | Length 4C | | | | | + +--------+ + + + | LV | 64 | % | [facility] | | | Wilcox's | | | | | | Biplane EF | | | | | + +--------+ + + + | LV ED | 59.58 | ml | [facility] | | | Volume | | | | | | (Wilcox's) | | | | | + +--------+ + + + | LV ED | 34 | ml/m2 | [facility] | | | Volume | | | | | | Index | | | | | + +--------+ + + + | LV ES | 21.49 | ml | [facility] | | | Volume | | | | | + +--------+ + + + | LVOT Mean | 47.67 | cm/s | [facility] | | | Velocity | | | | | + +--------+ + + + | MV E' | 9 | cm/s | [facility] | | | Lateral | | | | | | Velocity | | | | | + +--------+ + + + | MV E' | 6 | cm/s | [facility] | | | Septal | | | | | | Velocity | | | | | + +--------+ + + + | MV | 225.97 | cm/s2 | [facility] | | | Deceleratio | | | | | | n [place] | | | | | + +--------+ + + + | MV | 292.64 | msec | [facility] | | | Deceleratio | | | | | | n Time | | | | | + +--------+ + + + | MV E/A | 1.17 | | [facility] | | | Ratio | | | | | + +--------+ + + + | MV Peak | 56.31 | cm/s | [facility] | | | A-Wave | | | | | + +--------+ + + + | MV Peak | 66.13 | cm/s | [facility] | | | E-Wave | | | | | + +--------+ + + + | AV Mean | 66.42 | cm/s | [facility] | | | Velocity | | | | | + +--------+ + + + | LA/Aorta | 0.78 | | [facility] | | | Ratio | | | | | + +--------+ + + + | LA Area | 14.86 | cm2 | [facility] | | + +--------+ + + + | LA Systolic | 11.18 | mmHg | [facility] | | | Pressure | | | | | + +--------+ + + + | MV E/E | 11.02 | | [facility] | | | SEPTAL | | | | | + +--------+ + + + | MV E/E | 7.35 | | [facility] | | | LATERAL | | | | | + +--------+ + + + | LA Major | 0.2101 | cm | [facility] | | + +--------+ + + + | LV ES | 12 | ml/m2 | [facility] | | | Volume | | | | | | Index | | | | | + +--------+ + + + | Aortic Root | 4 | cm | [facility] | | | Diameter | | | | | + +--------+ + + + | IVS | 1.09 | cm | [facility] | | | Diastolic | | | | | | Thickness | | | | | | MM | | | | | + +--------+ + + + | LVPW | 1.08 | cm | [facility] | | | Diastolic | | | | | | Thickness | | | | | | MM | | | | | + +--------+ + + + | IVS | 1.37 | cm | [facility] | | | Systolic | | | | | | Thickness | | | | | | MM | | | | | + +--------+ + + + | LV Systolic | 3.32 | cm | [facility] | | | Diameter | | | | | | MM | | | | | + +--------+ + + + | LVPW | 1.22 | cm | [facility] | | | Systolic | | | | | | Thickness | | | | | | MM | | | | | + +--------+ + + + | AV Cusp | 1.45 | cm | [facility] | | | Seperation | | | | | | MM | | | | | + +--------+ + + + | LA Systolic | 3.1 | cm | [facility] | | | Diameter | | | | | | MM | | | | | + +--------+ + + + | TAPSE | 1.8 | cm | [facility] | | + +--------+ + + + | LVEF-TTE | 65 | % | [facility] | | | TRANSTHORAC | | | | | | IC ECHO | | | | | + +--------+ + + + | RA PRESSURE | 3 | mmHg | [facility] | | + +--------+ + + + | RVSP | 21 | mmHg | [facility] | | | Estimated | | | | | + +--------+ + + + + + | Specimen | + + | | + + + + + | Narrative | Performed At | + + + | 1. Normal | [facility] | | left ventricular size, wall thickness and motion. Preserved left | | | ventricular systolic function. LVEF is 65%.2. Grade 2 left | | | ventricular diastolic dysfunction.3. Mildly thickened and calcified | | | trileaflet aortic valve with adequate opening. There is aortic valve | | | sclerosis without significant aortic valve stenosis.4. Mildly | | | thickened and calcified mitral valve suggesting myxomatous change. | | | There is a trace mitral valve regurgitation.5. Mild mitral annular | | | calcification.6. Mild tricuspid valve regurgitation.7. Normal | | | right-sided pressure.8. Normal IVC with normal respiratory | | | collapse.9. Mildly dilated aortic root measuring 4.0 cm in diameter. | | |8. Normal IVC with normal respiratory collapse. | | |9. Mildly dilated aortic root measuring 4.0 cm in diameter. | | + + + + +---------+ + + | Performing | Address | City/State/Zipcode | Phone Number | | Organization | | | | + +---------+ + + | [facility] | | | | + +---------+ + + documented in this encounter Visit Diagnoses + + | Diagnosis | + + | Lower extremity edema Edema | + + documented in this encounter"
--- OUTSIDE RECORDS SUMMARY | ~2020-06-26 | XMS | Encounter Summary ---
Demographics + + + | Address | [address] | | | [place] [address] | + + + | Home Phone | | + + + | Preferred Language | Unknown | + + + | Marital Status | | + + + | Episcopal Affiliation | Unknown | + + + | Race | White | + + + | Ethnic Group | Not or | + + + Author + + + | Author | [facility] | | | and [place] | + + + | Organization | [facility] | | [...] [place] | | | | | [address] | | + + + + + Care Team Providers + +------+ + | Care Flat Sorting Machine Clerk Name | Role | Phone | + +------+ + PCP | Unavailable | + +------+ + Encounter Details +--------+ + + + + | Date | Type | Department | Care Team | Description | +--------+ + + + + | 07/20/ | [facility] | [facility] | | | | 2009 | Encounter | MED CTR XRAY [address] | | | | | | [place] | | | | | | [place] [address] | | | | | | [phone] | | | +--------+ + + + [...]
--- OUTSIDE RECORDS SUMMARY | ~2020-06-26 | XMS | Encounter Summary ---
Demographics + + + | Address | [address] | | | [place] [address] | + + + | Home Phone | | + + + | Preferred Language | Unknown | + + + | Marital Status | | + + + | Scientology Affiliation | Unknown | + + + | Race | White | + + + | Ethnic Group | Not or | + + + Author + + + | Author | [facility] | [...] [place] | | | | | [address] | | + + + + + Care Team Providers + +------+ + | Care Analytical Chemist Name | Role | Phone | + +------+ + | Almas Licea MD | PCP | | + +------+ + Encounter Details +--------+ + + + + | Date | Type | Department | Care Team | Description | +--------+ + + + + | 10/09/ | Abstract | [facility] | Provider, | | | 2019 | | PHYSIATRY [address] | [address] | | | | | [address] | [address] [place] | | | | | [place] | [place] [address] | | | | | [address] | | | | | | [phone] | | | +--------+ + + + [...]
--- OUTSIDE RECORDS SUMMARY | ~2020-06-26 | XMS | Encounter Summary ---
Demographics + + + | Address | [address] | | | [place] [address] | + + + | Home Phone | | + + + | Preferred Language | Unknown | + + + | Marital Status | | + + + | Sikhism Affiliation | Unknown | + + + | Race | White | + + + | Ethnic Group | Not or | + + + Author + + + | Author | [facility] | | | and [place] | + + + | Organization | [facility] | | | and [place] | + + + | Address | Unknown | + + + | Phone | Unavailable | + + + Support + + + + + | Name | Relationship | Address | Phone | + + + + + | Delilahparmjit Aleman | ECON | [address] | | | | | [place], [place] | | | | | [address] | | + + + + + Care Team Providers + +------+ + | Care Inventory Management Specialist Name | Role | Phone | + +------+ + PCP | Unavailable | + +------+ + Encounter Details +--------+ + + + + | Date | Type | Department | Care Team | Description | +--------+ + + + + | 06/07/ | [facility] | | | | 2002 | Encounter | MED CTR GENERIC OP | | | | | | CONV DEPT [address] | | | | | | [place], | | | | | | [place] [address] | | | | | | [phone] | | | +--------+ + + + [...]
--- OUTSIDE RECORDS SUMMARY | ~2020-06-26 | XMS | Encounter Summary ---
Demographics + + + | Address | [address] | | | [place] [address] | + + + | Home Phone | | + + + | Preferred Language | Unknown | + + + | Marital Status | | + + + | Restorationism Affiliation | Unknown | + + + | Race | White | + + + | Ethnic Group | Not or | + + + Author + + + | Author | [facility] | | | and [place] | + + + | Organization | [facility] | | | and [place] | + + + | Address | Unknown | + + + | Phone | Unavailable | + + + Support + + + + + | Name | Relationship | Address | Phone | + + + + + | Willamparmjit Aleman | E[place] | [address] | | | | | [place] | | | | | [address] | | + + + + + Care Team Providers + +------+ + | Care Concrete Products Dispatcher Name | Role | Phone | + +------+ + | Zainab Franco MD | PCP | | + +------+ + Reason for Visit + + + | Reason | Comments | + + + | Ankle Pain | right ankle pain ONSET 1 year | + + + | New Patient | establish care with Dr Leach | + + + Evaluate & Treat (Routine) +--------+ + + [...] | | | | | contracture, | [address] | [address] [place] | | | | | right | [place], | [place], [place] | | | | | Spastic | [place] [address] | [address] Phone: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 | Phone: | [phone] | | | | | affecting | [phone] | Fax: | | | | | dominant | Fax: | [phone] | | | | | side ([facility]) | [phone] | | | | | | Equinovarus [...] | +--------+ + + + + + Encounter Details +--------+---------+ + + + | Date | Type | Department | Care Team | Description | +--------+---------+ + + + | 12/15/ | Office | [facility] [place] | Garth Dean, | Hemiparesis of right | | 2019 | Visit | ORTHOPEDIC SURGERY | [address] | dominant side as | | | | [address] [place] | [place] | late effect of | | | | [place] | [address] | cerebrovascular | | | | [address] | | disease, unspecified | | | | [phone] | Gerardo Leach | cerebrovascular | | | | | MD [place] [address] | disease type (HCC) | | | | | [place] | (Primary Dx) | | | | | [address] | | | | | | | | +--------+---------+ + + + [...] + + + | Blood Pressure | - | - | | + + + + + | Pulse | - | - | | + [...] Weight | 64.4 kg (142 lb) | 12/15/2018 2:08 PM | | | | | PDT | | + + + + + | Height | 167.6 cm (5' 6") | 12/15/2018 2:08 PM | | | | | PDT | | + + + + + | Body Mass Index | 22.92 | 12/15/2018 2:08 PM | | | | | PDT [...] documented as of this encounter Progress Notes Gerardo Leach MD - 12/15/2018 2:00 PM PDTFormatting of this note might be differen t from the original. Kevin Gutierrez [facility]. 1945 [id number] [facility]. is 73 y.o. male who sees Zainab Franco MD for primary care. He sust ained a cerebrovascular accident approximately 13 years ago which affected the right side of his body. He states that following physical therapy he regained essentially full use of th e right side of his body but over the past few years he has now had some gradually increasin g weakness and muscle spasm particularly involving his right lower extremity. He has been s een recently by Dr. Garth Dean Junior and now has been referred to our office for our evalua tion and treatment suggestions. His main complaints are those of chronic clawing of his rig ht foot toes as well as intermittent pain from the instep of his foot progressing to the ant erior ankle. 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/2015 Facial weakness late Cvd effects Foot drop, right foot GERD (gastroesophageal reflux disease) Hiatal hernia High cholesterol History of blood clots HLD (hyperlipidemia) Hypercholesterolemia Idiopathic retroperitoneal fibrosis Involuntary movements Lumbago Other muscle spasm Poor circulation RLS (restless legs syndrome) Spastic hemiplegia affecting right dominant side ([facility]) Stroke ([facility]) right sided weakness Trochanteric bursitis [...] Felix Graham MD VASECTOMY Allergies Allergen Reactions Hydrocodone Itching Severe itching Severe itching Duloxetine Other (See Comments) Reaction not specified in outside medical records. Acetaminophen Itching Diphenhydramine Itching Intense itching without rash. Intense itching without rash. Current Outpatient Prescriptions Medication Sig Dispense Refill [...] capsule Take 20 mg by mouth Daily. potassium chloride (KLOR-CON) 10 mEq CR tablet Take 10 mEq by mouth Daily. pramipexole (MIRAPEX) 0.25 mg tablet Take 0.25 mg by mouth nightly. warfarin (COUMADIN) 5 mg tablet Take 5 mg by mouth Daily. Or as directed No current facility-administered medications for this visit. Family History Problem Relation Age of Onset Hypertension Mother Stroke Mother Stroke Father Alcohol abuse Father Prostate cancer Father Arthritis Other Diabetes Other High cholesterol Other Social History Social History Marital status: Spouse name: WILLAM OLSON Number of children: 3 Years of education: N/A Occupational History RETIRED Social History Main Topics Smoking status: Former Smoker Packs/day: 1.00 Years: 30.00 Types: Cigarettes Start date: 09/15/1971 Quit date: 09/15/2001 Smokeless tobacco: Former User Quit date: 11/12/1986 Alcohol use No Drug use: No Sexual activity: No Other Topics Concern Not on file Social History Narrative No narrative on file Review of Systems - Eyes: [] Double vision [x] Glasses/contacts [] Failing vision Ear/Nose/Throat: [] Frequent Colds [] Sinus Disease [] Nose obstruction [] Sneezing Spells [] Change in taste [] Artificial teeth [x] Ears ringing [] Ear pain [x] Hearing lo ss [x] Teeth problems [] Hoarseness [] Neck swelling [] Sore throat [] Congestion [] Nosebleeds [] Nasal allergies Respiratory: [x] Asthma/Wheezing [] Pneumonia [] Night sweats [x] Shortness of breath [] Chronic cough [] Coughing up blood [] Exposure to tuberculosis Cardiovascular: [] Heart Problems [x] Hypertension [] Heart murmur [] Palpitations [] Rheumatic fever [] Phlebitis [] Chest pain [x] Ankle swelling [] Leg cramps [] Raci ng heart [] Skipping beats [] Blood clots Gastrointestinal: [] Abdominal pain [] Heartburn [] Blood from rectum [] Colitis [] Gallbladder problems [x] Troub le swallowing [] Bloated stomach [] Change in stools [] Vomiting blood [] Nausea [] Hemorrhoids [] Jaundice [ ] Hepatitis [] Diarrhea [] Constipation [] Diverticulitis Urinary Tract: [] Painful urination [] Kidney Stones [x] Any urine leakage [x] Weak urine stream [x] Night urination [] Urine infections [] Bedwetting [] Blood in urine Skin: [] Skin rashes [] Itching/Burning [x] Skin bruises easi ly [] Artificial tanning [] Skin cancer [] Hair loss [] Changes in moles Musculoskeletal: [x] Physical handicaps [x] Back or shoulder pain []Rheumatoid disease [] Osteoarthritis [] Joint pain [] Joint swelling []Gout [] Leg cramps at night Neurological: [] Headaches [] Seizures [x] Stroke/TIA [] Faintness [] Tremors [] Numbness [] Dizziness [] Changes in handwriting [] Memory loss [x] Shooting pains Psychiatric: [] Depression [] Suicidal thoughts [] Sleep pattern changes [] Appetite changes [] Recent counseling [] Nervousness/anxiety [] Physical violence [] Marital problems Endocrine: [] Thyroid [] Diabetes Systemic: []Weight loss/gain (over 10 lbs) []Fever/chills []Fatigue [x] Sleeping Difficulties [] Speech change [] Voice change Physical Examination: Ht 1.676 m (5' 6") | Wt 64.4 kg (142 lb) | BMI 22.92 kg/m EXTREMITIES: Exam of the right lower extremity reveals that there is a chronic state of inc reased muscle activity with tightness throughout the ankle and foot musculature. The ankle can be dorsiflexed to just neutral with the knee extended but can be dorsiflexed approximate ly 12-15 degrees with the knee flexed. The patient has calluses over the tips of his lesse r toes consistent with chronic clawing of the toes. He appears to have some degree of incre ased supination of the midfoot and forefoot. Imaging results: Ankle x-rays taken today of the right ankle show no obvious bone abnormali ty. ASSESSMENT: History of cerebrovascular accident 13 years ago resulting in right-sided hemiparesis and h emiparalysis with right gastrocnemius tightness and clawing of the toes. PLAN: We have discussed our findings at length with Kevin. I feel that he would benefit from a limited surgical intervention. Specifically,we suggest a procedure that will include a amandeep rocnemius release also known as a Leticia procedure, release of flexor tendons to the right foot lesser toes and release of the adductor hallucis. Following healing from surgery he ma y then be fitted for a new right lower extremity AFO to help keep the foot in a plantigrade position. 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
--- OUTSIDE RECORDS SUMMARY | ~2020-06-26 | XMS | Encounter Summary ---
Demographics + + + | Address | [address] | | | [place] [address] | + + + | Home Phone [...] | Author | [facility] | | | and [...] [place] | | | | | [address] | | + + + + + Care Team Providers + +------+ + | Care Professor Of Forest Planning Name | Role | Phone | + +------+ + | Almas Licea MD | PCP | | + +------+ + Reason for Visit Service/Procedure (Routine) +--------+--------+ + + + + | Status | Reason | Specialty | Diagnoses / | Referred By | Referred To | | | | | Procedures | Contact | Contact | +--------+--------+ + + + + | Closed | | Radiology | Diagnoses | | [facility] | | | | | Lumbosacral | Natalie, | [address] | | | | | spondylosis | Elbert Schmid MD | [place], | | | | | without | [address] | [place] | | | | | myelopathy | [place] | [address] | | | | | Procedures | [place] | Phone: | | | | | [place] | [address] | [phone] | | | | | DX/THER AGNT | Phone: | Fax: | | | | | PARAVERT | [phone] | [phone] | | | | | FACET JOINT, | Fax: | | | | | | LUMBAR/SAC, | [phone] | | | | | | 1ST LEVEL | | | | | | | [facility] | | | | | | | DX/THER AGNT | | | | | | | PARAVERT | | | | | | | FACET JOINT, | | | | | | | LUMBAR/SAC, | | | | | | | 2ND LEVEL | | | | | | | [facility] | | | | | | | TRIAMCINOLON | | | | | | | E ACET INJ | | | | | | | NOS, 10 MG | | | | | | | Right | | | | | | | L3-L4,L4-L5 | | | | | | | Facet-Direct | | | | | | | referral | | | | | | | from | | | | | | | Nicole | | | +--------+--------+ + + + + Encounter Details +--------+ + + + + | Date | Type | Department | Care Team | Description | +--------+ + + + + | 01/31/ | Hospital | [facility] | Elbert Estrada | Facet arthritis of | | 2015 | Encounter | MED CTR XRAY [address] | T, [address] | lumbar region | | | | [place] | [place], [place] | (Primary Dx); Lumbar | | | | [place] [address] | [address] | spondylosis, | | | | [phone] | | unspecified spinal | | | | | Verse [facility], [facility] | osteoarthritis; | | | | | [place] | Trochanteric | | | | | | bursitis of right | | | | | | hip | +--------+ + + + + Social [...] this encounter Last Filed Vital Signs + +---------+ + + | Vital Sign | Reading | Time Taken | Comments | + +---------+ + + | Blood Pressure | 138/80 | 01/31/2015 3:46 PM | | | | | PDT | | + +---------+ + + | Pulse | 90 | 01/31/2015 3:46 PM | | | | | PDT | | + +---------+ + + | Temperature | - | - | | + +---------+ + + | Respiratory Rate | - | - | | + +---------+ + + | Oxygen Saturation | - | - | | + +---------+ + + | Inhaled Oxygen | - | - | | | Concentration | | | | + +---------+ + + | Weight | - | - | | + +---------+ + + | Height | - | - | | + +---------+ + + | Body Mass Index | - | - | | + +---------+ + + documented in this encounter Medications at Time [...] + +--------+ + + + | FL FACET INJECTION | Routin | 01/31/2015 | Lumbar | Results for this | | LUMBAR SACRAL | e | 3:51 PM | spondylosis, | procedure are in the | | | | PDT | unspecified spinal | results section. | | | | | osteoarthritis | | + +--------+ + + + documented in this encounter Results FL Facet Injection Lumbar Sacral (01/31/2015 3:51 PM PDT) + + | Specimen | + + | | + + + + + | Narrative | Performed At | + + + | 01/31/2015 Lumbar Facet Steroid Injections and Right Trochanteric | [facility] | | Bursa Injection Diagnosis: Lumbar Spondylosis and Trochanteric | [facility] | | Bursitis ICD-9 Codes 721.3 and 726.5 Kevin Gutierrez [facility] | | presents to the fluoroscopy suite for fluoroscopically-guided right | - IMAGING | | L3-L4 and L4-L5 facet injections as part of conservative management | | | for chronic pain with lumbar spondylosis. After informed consent was | | | obtained, the patient laid in the prone position on the fluoroscopy | | | table. The areas were identified under fluoroscopic guidance. The | | | areas were prepped and draped in sterile fashion. A 25-gauge, | | | 1.5-inch needle was inserted into each region and approximately 3 mL | | | of buffered 1% lidocaine was infused. Then, a 22-gauge spinal needle | | | was inserted into the superior portion of each facet under | | | fluoroscopic guidance. Confirmation into the joint spaces was | | | obtained with infusion of approximately 1 mL of Omnipaque contrast | | | which showed outline of the facet joints. Then, a combination of 1 | | | mL of 1% lidocaine and 1 mL of 40 mg/mL Kenalog was infused divided | | | between the 2 joints. A right trochanteric bursa injection was also | | | performed. The area for the injection was located by palpation | | | then marked over the lateral hip. The area was then sterilized | | | with chlorhexidine scrub before inserting a 1-1/2 inch 27-gauge | | | needle down to the greater trochanter. A total volume of 5 mL | | | including 1 mL of triamcinolone ( 40 milligrams per mL) and 4 mL of 1% | | | lidocaine was then infused. The needle was removed and the area was | | | cleaned and bandaged. The patient tolerated the procedures well | | | without complications. Pre- and post-procedure blood pressures were | | | stable. The patient was given verbal as well as written follow-up | | | instructions. Prior to the start of the procedures, the following | | | were performed and/or verified, including correct patient identity, | | | correct site/side marked and visible, agreement on the procedure to | | | be done, correct patient positioning and an accurate procedure | | | consent form. Any safety precautions based on clinical history | | | and/or medication use have been addressed. I personally performed | | | the procedures above. Estimated blood loss: Minimal | | | Complications: None Findings: As expected Anesthesia: Local 1% | | | Lidocaine | | + + + + + + + + | Performing | Address | City/[facility] | Phone Number | | Organization | | | | + + + + + | [facility] | [address] 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 | + + | Lumbar spondylosis, unspecified spinal osteoarthritis | + + | Trochanteric bursitis of right hip Enthesopathy of hip region | + + documented in this encounter Administered Medications + +--------+ +-------+------+------+ | Medication Order | MAR | Action | Dose | Rate | Site | | | Action | Date | | | | + +--------+ +-------+------+------+ | iohexol (OMNIPAQUE 300) 300 | Given | 02/01/20 | 4 mLs | | | | mg/mL injection 4 mL 4 mL, | | 15 3:45 | | | | | Intra-articular, ONCE, Tue | | PM PDT | | | | | 01/31/15 at 1545, For 1 dose | | | | | | + +--------+ +-------+------+------+ +---+---+ | | | +---+---+ + +-------+ +-------+---+ + | lidocaine 1% injection 5 mL 5 | Given | 02/01/20 | 5 mLs | | Other | | mL, Intradermal, ONCE, Tue | | 15 3:45 | | | (Comment | | 01/31/15 at 1545, For 1 dose | | PM PDT | | | ) | + +-------+ +-------+---+ + +---+---+ | | | +---+---+ + +-------+ +-------+---+---+ | sodium bicarbonate (NEUT) 4% | Given | 02/01/20 | 2 mLs | | | | injection 2 mL 2 mL, | | 15 3:45 | | | | | Infiltration, ONCE, 01/31/15 | | PM PDT | | | | | at 1545, For 1 dose, Use for | | | | | | | addition to other parenteral | | | | | | | solutions., | | | | | | + +-------+ +-------+---+---+ +---+---+ | | | +---+---+ + +-------+ +-------+---+ + | triamcinolone acetonide | Given | 02/01/20 | 80 mg | | Back-Low | | (KENALOG-40) 40 mg/mL injection | | 15 3:45 | | | er | | 80 mg 80 mg, Intra-articular, | | PM PDT | | | | | ONCE, 01/31/15 at 1545, For 1 | | | | | | | dose, Shake well. Not for IV | | | | | | | use., | | | | | | + +-------+ +-------+---+ + +---+---+ | | | +---+---+ documented in this encounter"
--- OUTSIDE RECORDS SUMMARY | ~2020-06-26 | XMS | Encounter Summary ---
Demographics + + + | Address | [address] | | | [place] [address] | + + + | Home Phone | | + + + | Preferred Language | Unknown | + + + | Marital Status | | + + + | Mandaeism Affiliation | Unknown | + + + | Race | White | + + + | Ethnic Group | Not or | + + + Author + + + | Author | [facility] | | | and [place] | + + + | Organization | [facility] | | | and [place] | + + + | Address | Unknown | + + + | Phone | Unavailable | + + + Support + + + + + | Name | Relationship | Address | Phone | + + + + + | Delilah Aleamn | ECON | [address] | | | | | [place] | | | | | [address] | | + + + + + Care Team Providers + +------+ + | Care Reel Man Name | Role | Phone | + +------+ + | Harris Sauceda MD | PCP | | + +------+ + Encounter Details +--------+ + + + + | Date | Type | Department | Care Team | Description | +--------+ + + + + | 02/05/ | Orders Only | [facility] | Christian Hook | | | 2010 | | MEDICAL CENTER | MD [address] | | | | | CLINICAL LABORATORY | [address], | | | | | [address] | [place] [address] | | | | | [place], [place] | [phone] | | | | | [address] | | | | | | [phone] | | | +--------+ + + + [...] + + + | TRELL PREP | Routin | 02/05/2011 | | Results for this | | | e | 2:30 PM | | procedure are in the | | | | PDT | | results section. | + +--------+ + + + documented in this encounter Results TRELL Prep (02/05/2011 2:30 PM PDT) + + | Specimen | + + | | + + + + + | Narrative | Performed At | + + + | Specimen Description THUMB LEFT SPEC D | EXTERNAL LAB | | Testing performed at | | | [facility];[address] [facility];[place] [address] TRELL PREP | | | NO YEAST OR FUNGAL ELEMENTS SEEN | | | Testing performed at [facility], [address] | | [facility], [place] [address] REPORT STATUS | | | 02/06/2011 FINAL [...]
--- OUTSIDE RECORDS SUMMARY | ~2020-06-26 | XMS | Encounter Summary ---
Demographics + + + | Address | [address] | | | [place] [address] | + + + | Home Phone | | + + + | Preferred Language | Unknown | + + + | Marital Status | | + + + | Mandaeism Affiliation | Unknown | + + + | Race | White | + + + | Ethnic Group | Not or | + + + Author + + + | Author | [facility] | | | and [place] | + + + | Organization | [facility] | | | and [place] | + + + | Address | Unknown | + + + | Phone | Unavailable | + + + Support + + + + + | Name | Relationship | Address | Phone | + + + + + | Delilahparmjit Almean | ECON | [address] | | | | | [place] | | | | | [address] | | + + + + + Care Team Providers + +------+ + | Care Aircraft Engine Mechanic Name | Role | Phone | + +------+ + | Harris Sauceda MD | PCP | | + +------+ + Reason for Visit + + + | Reason | Comments | + + + | Follow-up | | + + + Self-referral (Routine) +--------+--------+ + + + + | Status | Reason | Specialty | Diagnoses / | Referred By | Referred To | | | | | Procedures | Contact | Contact | +--------+--------+ + + + + | Closed | | Orthopedic | Diagnoses | | Hany, | | | | Surgery | | | Gerardo Naik MD | | | | | Contracture, | | [address]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[place], [place]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 | | [address] Phone: | | | | | affecting | | [phone] | | | | | unspecified | | Fax: | | | | | side (HCC) | | [phone] | | | | | 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, | | | | | | | right foot | | | | | | | Pain in | | | | | | | unspecified | | | | | | | ankle and | | | | | | | joints of | | | | | | | unspecified | | | | | | | foot | | | | | | | Procedures | | | | | | | self | | | | | | | referral/fol | | | | | | | low up | | | +--------+--------+ + + + + Encounter Details +--------+---------+ + + + | Date | Type | Department | Care Team | Description | +--------+---------+ + + + | 10/28/ | Office | [facility] | Gerardo Leach | S/P orthopedic | | 2020 | Visit | ORTHOPEDIC SURGERY | MD Gumaro [address] | surgery, follow-up | | | | [address] | [place] | exam (Primary Dx) | | | | [place] | [address] | | | | | [address] | | | | | | [phone] | | | +--------+---------+ + + + [...] encounter Progress Notes Gerardo Leach MD - 10/28/2019 9:30 AM PSTMr. Garcia returns for follow-up of his complex right lower extremity surgery which included release of the adductor hallucis longus , release of flexor tendons to all 4 lesser toes, Z-plasty lengthening of the extensor hallu cis longus and brevis as well as a Leticia gastrocnemius release. He is now little over 5 m onths out from surgery and overall has improved significantly. Examination: Exam reveals that all incisions remained fully healed. The foot is only minim ally swollen with very mild edema today. The patient's toes are now quite nicely aligned. The clawing of the 4 lesser toes has completely resolved. She still has slight static exten bryce of the second toe and slight static flexion of the great toe but overall the balance is greatly improved and near perfect. Advice: This patient has made excellent progress. He does have an AFO at home which he may wish to consider using as he still has mild foot drop although it is greatly improved follo wing his surgery. Overall Mr. Aleman is doing well and he therefore will return to our offi ce in the future as needed. 10 :02 AM PSTdocumented in this encounter Plan of Treatment Not on filedocumented as of this encounter Visit Diagnoses + + | Diagnosis | + + | S/P orthopedic surgery, follow-up exam - Primary Follow-up examination, following | | other surgery | + + documented in this encounter"
--- OUTSIDE RECORDS SUMMARY | ~2020-06-26 | XMS | Encounter Summary ---
Demographics + + + | Address | [address] | | | [place] [address] | + + + | Home Phone | | + + + | Preferred Language | Unknown | + + + | Marital Status | | + + + | Caodaism Affiliation | Unknown | + + + | Race | White | + + + | Ethnic Group | Not or | + + + Author + + + | Author | [facility] | | | and [place] | + + + | Organization | [facility] | | | and [...] [place] | | | | | [address] | | + + + + + Care Team Providers + +------+ + | Care Transmitter Operator Name | Role | Phone | + +------+ + | Almas Licea MD | PCP | | + +------+ + Encounter Details +--------+ + + + + | Date | Type | Department | Care Team | Description | +--------+ + + + + | 09/05/ | Orders Only | [facility] [place] | Matt Sandoval | Facet arthritis of | | 2015 | | NEUROSURGERY [address] | [address] | lumbar region | | | | [address] | [address] [place], [place] | (Primary Dx) | | | | [place], [place] | [address] | | | | | [address] | | | | | | [phone] | | | +--------+ + + + [...] +---------+--------+ + + | XR Lumbar Spine 4 + | Imaging | Routin | Facet arthritis of | Expected: 09/15/2015 | | Vw | | e | lumbar region | (Approximate), | | | | | | Expires: 09/03/2016 | + +---------+--------+ + + documented as of this encounter Visit Diagnoses + + | Diagnosis | + + | 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
--- OUTSIDE RECORDS SUMMARY | ~2020-06-26 | XMS | Encounter Summary ---
Demographics + + + | Address | [address] | | | [place] [address] | + + + | Home Phone [...] + + + | Author | [facility] | | | and [place] | + + + | Organization | [facility] | | | [...] [place] | | | | | [address] | | + + + + + Care Team Providers + +------+ + | Care Receiver/Laborer Name | Role | Phone | + +------+ + | Almas Licea MD | PCP | | + +------+ + Reason for Visit + + + | Reason | Comments | + + + | Follow-up | Preop | + + + Encounter Details +--------+---------+ + + + | Date | Type | Department | Care Team | Description | +--------+---------+ + + + | 06/21/ | Office | [facility] | Matt Sandoval | Spondylolisthesis, | | 2016 | Visit | NEUROSURGERY [address] | [address] | lumbar region | | | | [address] | [address] [place], [place] | (Primary Dx); | | | | [place], [place] | [address] | Neurogenic | | | | [address] | | claudication; Lumbar | | | | [phone] | | radiculopathy; | | | | | | Lumbar facet | | | | | | arthropathy; Facet | | | | | | arthritis of lumbar | | | | | | region (HCC) | +--------+---------+ + + + Social History [...] + + + | Blood Pressure | 138/83 | 06/21/2016 10:22 AM | | | | | PDT | | + + + + + | Pulse | 89 | 06/21/2016 10:22 AM | | | | | PDT | | + + + + + | Temperature | - | - | | + + + + + | Respiratory Rate | 16 | 06/21/2016 10:22 AM | | | | | PDT | | + + + + + | Oxygen Saturation | - | - | | + + + + + | Inhaled Oxygen | - | - | | | Concentration | | | | + + + + + | Weight | 63.5 kg (140 lb) | 06/21/2016 10:22 AM | | | | | PDT | | + + + + + | Height | 167.6 cm (5' 6") | 06/21/2016 10:22 AM | | | | | PDT | | + + + + + | Body Mass Index | 22.6 | 06/21/2016 10:22 AM | | | | | PDT | | + + + + + documented in this encounter Patient Instructions Patient Instructions Matt Sandoval PA-C - 06/21/2016 10:54 AM PDTPlease do not eat or drink anything after midnight the night before your surgery. If you have any changes in your health between now and the day of your surgery please let us know. If you have any que stions regarding which medications to stop before surgery please contact our office. documented in this encounter Progress Notes Matt Sandoval PA-C - 06/21/2016 10:54 AM PDTFormatting of this note might be differ ent from the original. Matt Sandoval PA-C [address] [facility], [address] [place], [place] [address] FAX: NEUROSURGERY FOLLOW-UP CHIEF COMPLAINT: Chief Complaint [...] mass index is 22.61 kg/(m^2). GENERAL: Kevin Aleman . is in [...] has no apparent deficits with short or snf memory. MOTOR EXAM: (5 IS NORMAL) * Indicates pain limited MUSCLE/ MOVEMENT: RIGHT LEFT Deltoids 5 5 Biceps 5 5 Triceps 5 5 Wrist Flexion 5 5 Wrist Extension 5 5 Median Intrinsics 5 5 Ulnar Intrinsics 5 5 Pension Administrator Strength 5 5 Hip Flexion 4 5 [...] he is playing to discontinue this without [employer] b ridging. We discussed his surgery in [...] PA-C, 06/21/2016 11:02 documented in this encounter Plan of Treatment Not on filedocumented as of this encounter Visit Diagnoses + + | Diagnosis | + + | Spondylolisthesis, lumbar region - Primary | + + | Neurogenic claudication Spinal stenosis, lumbar region, with neurogenic claudication | + + | Lumbar radiculopathy Thoracic or lumbosacral neuritis or radiculitis, unspecified | + + | Lumbar facet arthropathy Lumbosacral spondylosis without myelopathy | + + | Facet arthritis of lumbar region Lumbosacral spondylosis without myelopathy | + + documented in this encounter
--- OUTSIDE RECORDS SUMMARY | ~2020-06-26 | XMS | Encounter Summary ---
Demographics + + + | Address | [address] | | | [place] [address] | + + + | Home Phone | | + + + | Preferred Language | Unknown | + + + | Marital Status | | + + + | Catholic Affiliation | Unknown | + + + | Race | White | + + + | Ethnic Group | Not or | + + + Author + + + | Author | [facility] | | | and [place] [...] [place] | | | | | [address] | | + + + + + Care Team Providers + +------+ + | Care Machine Assembler Supervisor Name | Role | Phone | + +------+ + | Harris Sauceda MD | PCP | | + +------+ + Encounter Details +--------+ + + + + | Date | Type | Department | Care Team | Description | +--------+ + + + + | 02/26/ | Telephone | [facility] [place] | William Garcia MD | | | 2016 | | NEUROSURGERY [address] | [address] | | | | | [address] | [place] [address] | | | | | [place] | [phone] | | | | | [address] | | | | | | [phone] | | | +--------+ + + + [...]
--- OUTSIDE RECORDS SUMMARY | ~2020-06-26 | XMS | Encounter Summary ---
Demographics + + + | Address | [address] | | | [place] [address] | + + + | Home Phone | | + + + | Preferred Language | Unknown | + + + | Marital Status | | + + + | Confucianism Affiliation | Unknown | + + + | Race | White | + + + | Ethnic Group | Not or | + + + Author + + + | Author | [facility] | | | and [place] | + + + | Organization | [facility] | | | [...] [place] | | | | | [address] | | + + + + + Care Team Providers + +------+ + | Care Project Technician Name | Role | Phone | + +------+ + | Harris Sauceda MD | PCP | | + +------+ + Encounter Details +--------+ + + + + | Date | Type | Department | Care Team | Description | +--------+ + + + + | 01/06/ | Imaging | [facility] | Provider, | | | 2020 | Exam | MED CTR EXTERNAL | [address] | | | | | IMAGING [address] | [address] | | | | | [address] [place] | [place] [address] | | | | | [place] [address] | | | | | | [phone] | | | +--------+ + + + [...] this | | VIEWS | e | 12:05 AM | | procedure are in the | | | | PDT | | results section. | + +--------+ + + + documented in this encounter Results XR Hip Left 2-3 Views (05/15/2017 12:05 AM PDT) + + | Specimen | [...]
--- OUTSIDE RECORDS SUMMARY | ~2020-06-26 | XMS | Encounter Summary ---
Demographics + + + | Address | [address] | | | [place] [address] | + + + | Home Phone [...] | Author | [facility] | | | and [place] [...] [place] | | | | | [address] | | + + + + + Care Team Providers + +------+ + | Care Curtain Fitter Name | Role | Phone | + +------+ + PCP | Unavailable | + +------+ + Encounter Details +--------+ + + + + | Date | Type | Department | Care Team | Description | +--------+ + + + + | 12/01/ | [facility] | [facility] | | | | 2002 | Encounter | MED CTR XRAY [address] | | | | | | [place] | | | | | | [place] [address] | | | | | | [phone] | | | +--------+ + + + [...]
--- OUTSIDE RECORDS SUMMARY | ~2020-06-26 | XMS | Encounter Summary ---
Demographics + + + | Address | [address] | | | [place] [address] | + + + | Home Phone | | + + + | Preferred Language | Unknown | + + + | Marital Status | | + + + | Gnosticism Affiliation | Unknown | + + + | Race | White | + + + | Ethnic Group | Not or | + + + Author + + + | Author | [facility] | | | and [place] | + + + | Organization | [facility] | | [...] [place] | | | | | [address] | | + + + + + Care Team Providers + +------+ + | Care Rehab Director Occupational Therapist Name | Role | Phone | + +------+ + PCP | Unavailable | + +------+ + Encounter Details +--------+ + + + + | Date | Type | Department | Care Team | Description | +--------+ + + + + | 05/28/ | Abstract | [facility] | [facility] | | | 2011 | | Conversion Location | SR | | | | | [address] | | | | | | [place], [place] | | | | | | [address] | | | | | | [phone] | | | +--------+ + + + [...] + + + | Blood Pressure | 124/70 | 04/17/2012 12:00 AM | | | | | PDT [...] + + + + | Weight | 70.3 kg (155 lb) | 12/09/2011 12:00 AM | | | | | PDT | | + + + + + | Height | 167.6 cm (5' 6") | 07/22/2011 12:00 AM | | | | | PST | | + + + + + | Body Mass Index | 25.02 | 07/22/2011 12:00 AM | | | | | PST | | + + + + + documented in this encounter Plan of Treatment Not on filedocumented as of this encounter Procedures + +--------+ + + + | Procedure Name | Priori | Date/Time | Associated Diagnosis | Comments | | | ty | | | | + +--------+ + + + | ENDOSCOPY, COLON, | Routin | 09/15/2010 | | Results for this | | DIAGNOSTIC | e | 12:00 AM | | procedure are in the | | | | PST | | results section. | + +--------+ + + + documented in this encounter Results ENDOSCOPY, COLON, DIAGNOSTIC (09/15/2010 12:00 AM PST) + + | Specimen | + + | | + + + + + | Narrative | Performed At | + + + | | | + + + documented in this encounter Visit Diagnoses Not on filedocumented in this encounter
--- OUTSIDE RECORDS SUMMARY | ~2020-06-26 | XMS | Encounter Summary ---
Demographics + + + | Address | [address] | | | [place] [address] | + + + | Home Phone | | + + + | Preferred Language | Unknown | + + + | Marital Status | | + + + | Rastafari Affiliation | Unknown | + + + | Race | White | + + + | Ethnic Group | Not or | + + + Author + + + | Author | [facility] | | | and [place] | + + + | Organization | [facility] | | | [...] [place] | | | | | [address] | | + + + + + Care Team Providers + +------+ + | Care Community Organizer Name | Role | Phone | + +------+ + PCP | Unavailable | + +------+ + Encounter Details +--------+ + + + + | Date | Type | Department | Care Team | Description | +--------+ + + + + | 06/28/ | [facility] | [facility] | | | | 2010 | Encounter | MED CTR XRAY [address] | | | | | | [address] | | | | | | [place] [address] | | | | | | [phone] | | | +--------+ + + + [...] + +--------+ + + + | CT ABDOMEN PELVIS W | | 06/28/2011 | | Results for this | | CONTRAST | | 10:09 AM | | procedure are in the | | | | PDT | | results section. 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 COMPARISON: 07/2010 FINDINGS: | | | There is persistent stable retroperitoneal abnormal soft tissue | | | which surrounds the infrar enal aorta and proximal iliac vessels. | | | Findings are consistent with stable retroperitoneal fibrosis. | | | Surgical clips are noted at about the level of the aortic | | | bifurcation. There is dense atherosclero tic vascular calcification | | | with enhancing patent lumen of the iliofemoral vessels. No | | | adenopathy is appreciated. Lung bases demonstrate stable | | | findings of centrolobular emphysema. The liver demonstrates diffuse | | | lo w attenuation suggesting steatosis. No focal hepatic lesion is | | | seen. Gallbladder, biliary tree, and pancreas are unremarkable. | | | Spleen is normal. The adrenals are normal. Kidneys enhance | | | symmetrical ly and are unobstructed. The ureters are not involved | | | by the retroperitoneal process. Partially opa cified small bowel | | | loops are unremarkable. Colon is unremarkable. The previously | | | noted area of rosi nal narrowing may have represented transient | | | spasm. Pelvis demonstrates normal-appearing urinary bladder | | | with prominent prostatic impression on the bladd er base. There are | | | surgical clips at the right inguinal ring. There is no free fluid | | | or adenopathy in the pelvis or in the groin. Bony structures are | | | unremarkable. IMPRESSION: 1. STABLE RETROPERITONEAL | | | PERIAORTIC SOFT TISSUE CONSISTENT WITH RETROPERITONEAL FIBROSIS. | | | 2. EMPHYSEMA. 3. HEPATOSTEATOSIS. Dictated | | | Date/Time: 06/28/2011 16:24 Transcribed Date/Time: 06/28/2011 | | | 16:31 Spar Machine Operator: <Electronically Signed by Jose Wilson | | | MD Alvin> 06/28/11 1745 | | + + + + + | Procedure Note | + + | Emre, Rad Conversion - 10/22/2013 4:02 PM [facility] | | Diagnostic Imaging Department [address] [place] [address] | | ABDOMEN AND PELVIS CT WITH CONTRAST, 1200 HOURS, | | 06/28/2011 CLINICAL HISTORY: FOLLOW UP RETROPERITONEAL FIBROSIS. COMPARISON: 07/2010 | | FINDINGS: There is persistent stable retroperitoneal abnormal soft tissue which | | surrounds the infrarenal aorta and proximal iliac vessels. Findings are consistent with | | stable retroperitoneal fibrosis. Surgical clips are noted at about the level of the | | aortic bifurcation. There is dense atherosclerotic vascular calcification with | | enhancing patent lumen of the iliofemoral vessels. No adenopathy is appreciated. Lung | | bases demonstrate stable findings of centrolobular emphysema. The liver demonstrates | | diffuse low attenuation suggesting steatosis. No focal hepatic lesion is seen. | | Gallbladder, biliary tree, and pancreas are unremarkable. Spleen is normal. The | | adrenals are normal. Kidneys enhance symmetrically and are unobstructed. The ureters | | are not involved by the retroperitoneal process. Partially opacified small bowel loops | | are unremarkable. Colon is unremarkable. The previously noted area of luminal | | narrowing may have represented transient spasm. Pelvis demonstrates normal-appearing | | urinary bladder with prominent prostatic impression on the bladder base. There are | | surgical clips at the right inguinal ring. There is no free fluid or adenopathy in the | | pelvis or in the groin. Bony structures are unremarkable. IMPRESSION: 1. STABLE | | RETROPERITONEAL PERIAORTIC SOFT TISSUE CONSISTENT WITH RETROPERITONEAL FIBROSIS. 2. | | EMPHYSEMA. 3. HEPATOSTEATOSIS. Dictated Date/Time: 06/28/2011 16:24Transcribed | | Date/Time: 06/28/2011 16:31Transcriptionist: <Electronically Signed by Jose Wilson | | MD Alvin> 06/28/11 0875 | |nal narrowing may have represented transient spasm. | | | |Pelvis demonstrates normal-appearing urinary bladder with prominent prostatic impression on the bladd | |er base. There are surgical clips at the right inguinal ring. There is no free fluid or a denopathy | |in the pelvis or in the groin. Bony structures are unremarkable. | | | |IMPRESSION: | |1. STABLE RETROPERITONEAL PERIAORTIC SOFT TISSUE CONSISTENT WITH RETROPERITONEAL FIBROSIS. | | | |2. EMPHYSEMA. | | | |3. HEPATOSTEATOSIS. | | | |Dictated Date/Time: 06/28/2011 16:24 | |Transcribed Date/Time: 06/28/2011 16:31 | |Spar Machine Operator: | |<Electronically Signed by Jose Esquivel MD> 06/28/11 8368 | + + + +---------+ + + | Performing | Address | City/State/Zipcode | Phone Number | | Organization | | | | + +---------+ + + | [place] | | | | | [facility] | | | | + +---------+ + + documented in this encounter Visit Diagnoses Not on filedocumented in this encounter"
--- OUTSIDE RECORDS SUMMARY | ~2020-06-26 | XMS | Encounter Summary ---
Demographics + + + | Address | [address] | | | [place] [address] | + + + | Home Phone | | + + + | Preferred Language | Unknown | + + + | Marital Status | | + + + | Religion Affiliation | Unknown | + + + | Race | White | + + + | Ethnic Group | Not or | + + + Author + + + | Author | [facility] | | | and [place] | + + + | Organization | [facility] | | | [...] [place] | | | | | [address] | | + + + + + Care Team Providers + +------+ + | Care Principle Industrial Hygienist Name | Role | Phone | + +------+ + | Almas Licea MD | PCP | | + +------+ + Reason for Visit +--------+--------+ + | Reason | Onset | Comments | | | Date | | +--------+--------+ + | Other | 08/24/ | MRI | | | 2015 | | +--------+--------+ + Encounter Details +--------+ + + + + | Date | Type | Department | Care Team | Description | +--------+ + + + + | 08/24/ | Telephone | [facility] | Almas Rivera | Other (MRI) | | 2015 | | REHABILITATION | MD Earnest [address] | | | | MEDICINE [address] | [address] | | | | | [address] | [place] [address] | | | | | [place] [address] | [phone] | | | | | [phone] | | | +--------+ + + + [...] Encounter - Kandis Cantu Cert MA - 08/24/2015 9:49 AM PSTI called and lvmyrtle Brown to let him know that I did received his voicemail and that I have requested for him MRI to be pushed to [facility] and report to be faxed to our office. documented in this encounter Plan of Treatment Not on filedocumented as of this encounter Visit Diagnoses Not on filedocumented in this encounter"
--- OUTSIDE RECORDS SUMMARY | ~2020-06-26 | XMS | Encounter Summary ---
Demographics + + + | Address | [address] | | | [place] [address] | + + + | Home Phone [...] Author + + + | Author | [facility] | | | and [place] | + + + | Organization | [facility] | | | [...] [place] | | | | | [address] | | + + + + + Care Team Providers + +------+ + | Care Clinical Program Manager Name | Role | Phone | [...] | | [address] | [place] [address] | | | | | [place] | [phone] | | | | | [address] | | | | | | [phone] | | | +--------+ + + + [...]
--- OUTSIDE RECORDS SUMMARY | ~2020-06-26 | XMS | Encounter Summary ---
Demographics + + + | Address | [address] | | | [place] [address] | + + + | Home Phone | | + + + | Preferred Language | Unknown | + + + | Marital Status | | + + + | Jehovah'S Witness Affiliation | Unknown | + + + | Race | White | + + + | Ethnic Group | Not or | + + + Author + + + | Author | [facility] | + + + | Organization | [facility] | + + + | Address | Unknown | + + + | Phone | Unavailable | + + + Support + + + + + | Name | Relationship | Address | Phone | + + + + + | Delilah Aleman | ECON | [address] | | | | | [place] | | | | | [address] | | + + + + + Care Team Providers + +------+ + | Care Sergeant At Arms Name | Role | Phone | + +------+ + | Almas Licea MD | PCP | | + +------+ + Reason for Visit + + + | Reason | Comments | + + + | New patient | | | consultation | | + + + Encounter Details +--------+---------+ + + + | Date | Type | Department | Care Team | Description | +--------+---------+ + + + | 07/25/ | Office | Rheumatology at | Hector Benítez MD | Idiopathic | | 2007 | Visit | [facility] | [address] | Retroperitoneal | | | | [address] | [address] [place], | Fibrosis (Primary | | | | [facility] | [place] [address] | Dx) | | | | [facility], [address] | [phone] | | | | | [place], [place] | | | | | | [address] | | | | | | [phone] | | | +--------+---------+ + + + [...] + + + | Blood Pressure | 132/72 | 07/25/2008 7:56 AM | | | | | PST | | + + + + + | Pulse | 93 | 07/25/2008 7:56 AM | | | | | PST | | + + + + + | Temperature | - | - | | + + + + + | Respiratory Rate | - | - | | + + + + + | Oxygen Saturation | 93% | 07/25/2008 7:56 AM | | | | | PST | | + + + + + | Inhaled Oxygen | - | - | | | Concentration | | | | + + + + + | Weight | 72.1 kg (158 lb 14.4 | 07/25/2008 7:56 AM | | | | oz) | PST | | + + + + + | Height | - | - | | + + + + + | Body Mass Index | - | - | | + + + + + documented in this encounter Progress Notes Hector Benítezu - 07/25/2008 9:18 AM PST RHEUMATOLOGY NEW PATIENT CONSULT This patient was referred by: ALMAS LICEA MD [facility] [address] [place] [id number], CC: Chief Complaint Patient presents with New patient consultation HPI: This is a 63 y.o. male, here for consultation regarding retroperitoneal fibrosis. Patient has had left sideded flank ache for about 5 years that he thought was back pain. Th is symptom got worse in February [address] found a retroperitoneal mass. He also was found to have microscopic hematuria and further test revealed anobstruction of right ureter. A stent in the ureter was suggested but has not been done yet. Subsequently, he had a laparotmy and biopsy of retroperitoneal mass was done, pathology indicates inflammation and fibrosis. Afte r the biopsy surgery, patient had a period of time of pain free for about two months. His re peat CT scan of abdomen showed improved pathology. But the symptoms are coming back two week s ago. The pain is silimar to previous symptoms. He has no joint pain. Patient states that his biopsy surgery was complicated with uncontrolled BP. He has been evaluated by a urologist and a stent placement to the ureter was recommended. ROS: General: Positive for fatigue. No constitutional symptoms of weakness, fevers, night sweats. Eyes: No changes in visual acuity, diplopia or amaurosis, no discharge, matting, redness, tearing or eye pain. Ears/Nose/Throat: No sore throat, dental pain, hoarseness, dysphagia, oral or tongue lesio ns. No history of hearing loss, ear pain, tinnitus or aural discharge. Musculoskeletal: No symptoms of joint pain, swelling, myalgias or back pain. Gastrointestinal: No abdominal or flank pain, anorexia, nausea or vomiting, dysphagia, era nge in bowel habits or black or bloody stools or weight loss. 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 Weakness of the right limbs. Heme/Lymphatic: The patient denies abnormal bruising, abnormal bleeding or enlarged lymph nodes. CVS: no chest pain or irregular heart beat. No shortness of breath. Respiratory: no cough, no wheezing. PMH: Past Medical History Diagnosis Date Unspecified Essential Hypertension Unspecified Cerebral Artery Occlusion with Cerebral Infarction PSH: Past Surgical History Procedure Date Hx laparotomy March 2008 biopsy of retroperitoneal fibrosis Meds: Current outpatient prescriptions Medication Sig aspirin 325 mg Oral Tablet take 1 tablet by oral route once daily CELEBREX 200 mg Oral Capsule take 1 capsule (200 mg) by oral route 2 times per day as n eeded COZAAR 50 mg Oral Tablet take 1 tablet (50 mg) by oral route once daily LEXAPRO 10 mg Oral Tablet take 1 tablet (10 mg) by oral route once daily NORVASC 2.5 mg Oral Tablet take 1 tablet (2.5 mg) by oral route once daily PREVACID 30 mg Oral Capsule, Delayed Release(E.C.) take 1 capsule (30 mg) by oral route once daily before a meal VYTORIN 10/40 10-40 mg Oral Tablet take 1 tablet by oral route once daily warfarin 5 mg Oral Tablet take 1 tablet by oral route 6 days a week and 1/2 tablet by o ral route on the 7th day Allergies: Review of patient's allergies indicates no known allergies. Social History: Kevin reports that he has never used tobacco. He reports that he drinks alcohol. He reports that he does not currently use illicit drugs. Vaccinations: There is no immunization history on file for this patient. FH: family history includes Cancer in his father and Stroke in his father. Exam: Vital Signs: BP 132/72 | Pulse 93 | Wt 72.077 kg (158 lb 14.4 oz) | SpO2 93% Pain Sc ore: 0 Gen: Well nourished, well developed, in NAD. HEENT: PERRLA, EOMI, O/P clear, no facial rash or alopecia. Neck: supple, no lymphadenopathy, FROM. Lungs: clear to ausculation bilaterally. CVS: S1S2, RRR, no murmurs, rubs or gallops. Abd: normal BS, soft, NT, ND. Ext: no clubbing, cyanosis or edema. M/S: no synovitis and full range of motion. Skin: no rashes or lesions. Neuro: CN intact, sensory exam intact, decreased strength in the right limbs and increased DTR on the right upper and lower ext. Labs: Per referring medical records: Cr 1.07, JOSIE <1:40, CRP 1, RF <20, ESR 2. WBC 4.2, plt 233. Radiology: CT of Abdomen: 03/15/2008: Right sided obstructive uropathy. This appears to be due to soft t issue encasing the aorta and deviating the right ureter. The obstruction is a the level of t he aortic bifurcation as seen on the 35 min dleayed prone images. 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 Repeated CT of abdomen 07/18/2008 (after surgical biopsy): Right ureter is now decompressed and there is no longer evidence of ureteral obstruction. T he retroperitoneal mass surrounding the aorta and iliac arteries has diminished considerably in size. The largest portion of the mass is just below the renal vessels. The thicknest por tion of the mass is to the left of aorta and it measures less than 1 cm (which is dimished f rom a previous 1.7 cm). In addition, much of the mass surrounding the iliac arteries has dis appeared. The aorta and iliac vessels remain slightly encassed in abnormal soft tissue. Pathology: 03/30/2008: Retroperitoneal process: adipose tissue with chronic inflammation com posed of sheets of lymphocytes with associated plasma cells and acute inflammatory cells. Th ere is moderate fibrosis present. No atypical features are seen. A Meckel's diverticulum was resected and pathology revealed small intestinal mucosa. No inf lammatory features are seen. Part of the retroperitoneal tissue was sent for flow cytometry but there is no report avail able for review. Impression: This is a 63 y.o. male, here for evaluation of retropeitoneal fibrosis. Patient is here basically for a second opinion regarding the treatment for this condition. From the available data from the referal records, there is no question about the diagnosis of idiopa thic retroperitoneal fibrosis. Recommendations: 1. PCP to follow up on the flow cytometry report and make certain there is no evidence of lymphoma. 2. Follow up with urologist regarding whether a stent is required at this time. Patient exp ressed that he will go to another urologist for this procedure. Given the fact that his uret er is no compressed, I was wondering whether a stent is needed at this stage. 3. For treatment of the retroperitoneal fibrosis, the mainstay is steroid for suppression o f inflammation. I recommend to start prednisone at 40 mg per day and taper after about 4 wee ks to 30 mg and gradually taper down. Patient will need periodic CT scan for assessing effec ts. Immunosuppressants will be needed in the future for sparing steroids or added on for fur ther suppresion of inflammation. There are reports of [facility] trials of using tamoxifen for is condition. This will be consider if he has refratory course to steroids or other immunosu ppressants. 4. Upon patient and family request in consideration of winter road conditions, return to is clinic in November 2008, otherwise I would like to have him back in about 8-10 weeks. 5. I'll be happy to work with his PCP for adjusting dose of medications. HECTOR BENÍTEZ MD RHEUMATOLOGY FACULTY [address] [facility] [place] [email or web address] signed by Hector Benítez at 07/25/2008 5:53 PM PSTdocu mented in this encounter Procedure Notes Other, Faculty - 11/14/2008 12:00 AM PSTAssociated Order(s): RADIOLOGY Electronically sign ed by Faculty Other at 07/25/2008 12:00 AM PSTOther, Faculty - 03/08/2008 12:00 AM PDTAssoci ated Order(s): RADIOLOGY d ocumented in this encounter Miscellaneous Notes Scan - Other, Faculty - 10/12/2008 8:56 AM PST can - Other, Faculty - 09/14/2008 1:15 PM PST Electronica lly signed by Interface Pointers In at 09/14/2008 1:15 PM PSTScan - Other, Faculty - 09/14 12:48 PM PST P STScan - Other, Faculty - 08/26/2008 12:00 AM PSTAssociated Order(s): LAB REPORTS Electroni alexandra signed by Faculty Other at 07/25/2008 12:00 AM PSTScan - Other, Faculty - 08/19/2008 7:50 AM PST can - Other, Faculty - 08/17/2008 9:59 AM PST can - Other, Faculty - 08/17/2008 9:58 AM PST Electronically si gned by Interface, Pointers In at 08/17/2008 9:58 AM PSTScan - Other, Faculty - 08/16/2008 4:32 PM PST can - Other, Faculty - 07/04/2008 12:00 AM PDTAssociated Order(s): LAB REPORTS can - Other, Faculty - 03/30/2008 12:00 A M PDTAssociated Order(s): PATHOLOGY 12 :00 AM PSTdocumented in this encounter Plan of Treatment Not on filedocumented as of this encounter Procedures + +--------+ + + + | Procedure Name | Priori | Date/Time | Associated Diagnosis | Comments | | | ty | | | | + +--------+ + + + | RADIOLOGY | | 11/14/2008 | | Results for this | | | | 12:00 AM | | procedure are in the | | | | PST | | results section. | + +--------+ + + + | LAB REPORTS | | 08/26/2008 | | Results for this | | | | 12:00 AM | | procedure are in the | | | | PST | | results section. | + +--------+ + + + | LAB REPORTS | | 07/04/2008 | | Results for this | | | | 12:00 AM | | procedure are in the | | | | PDT | | results section. | + +--------+ + + + | PATHOLOGY | | 03/30/2008 | | Results for this | | | | 12:00 AM | | procedure are in the | | | | PDT | | results section. | + +--------+ + + + | RADIOLOGY | | 03/08/2008 | | Results for this | | | | 12:00 AM | | procedure are in the | | | | PDT | | results section. | + +--------+ + + + documented in this encounter Results RADIOLOGY (11/14/2008 12:00 AM PST) + + + | Narrative | Performed At | + + + | | | + + + + + | Procedure Note | + + | Filippo, Faculty - 11/14/2008 12:00 AM PST | + + LAB REPORTS (08/26/2008 12:00 AM PST) + + + | Narrative | Performed At | + + + | | | + + + + + | Procedure Note | + + | Radames Barkley - 08/26/2008 12:00 AM PST | + + LAB REPORTS (07/04/2008 12:00 AM PDT) + + + | Narrative | Performed At | + + + | | | + + + + + | Procedure Note | + + | Filippo Faculty - 07/04/2008 12:00 AM PDT | + + PATHOLOGY (03/30/2008 12:00 AM PDT) + + + | Narrative | Performed At | + + + | | | + + + + + | Procedure Note | + + | Filippo, Faculty - 03/30/2008 12:00 AM PDT | + + RADIOLOGY (03/08/2008 12:00 AM PDT) + + + | Narrative | Performed At | + + + | | | + + + + + | Procedure Note | + + | Radames Barkley - 03/08/2008 12:00 AM PDT | + + documented in this encounter Visit Diagnoses + + | Diagnosis | + + | 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
--- OUTSIDE RECORDS SUMMARY | ~2020-06-26 | XMS | Encounter Summary ---
Demographics + + + | Address | [address] | | | [place] [address] | + + + | Home Phone | | + + + | Preferred Language | Unknown | + + + | Marital Status | | + + + | Yazidi Affiliation | Unknown | + + + | Race | White | + + + | Ethnic Group | Not or | + + + Author + + + | Author | [facility] | | | and [place] | + + + | Organization | [facility] | | | [...] [place] | | | | | [address] | | + + + + + Care Team Providers + +------+ + | Care Pipe Fitter Soft Copper Name | Role | Phone | + [...] | | | MARY CRUZ [address] | [place] [address] | | | | | [place] [address] | | | | | | [phone] | | | +--------+ + + + [...] + | CT LUMBAR SPINE WO | Routin | 05/15/2017 | | Results for this | | CONTRAST | e | 12:00 AM | | procedure are in the | | | | PDT | | results section. | + +--------+ + + + documented in this encounter Results CT Lumbar Spine wo Contrast (05/15/2017 12:00 AM PDT) + + | Specimen [...]
--- OUTSIDE RECORDS SUMMARY | ~2020-06-26 | XMS | Encounter Summary ---
Demographics + + + | Address | [address] | | | [place] [address] | + + + | Home Phone | | + + + | Preferred Language | Unknown | + + + | Marital Status | | + + + | Christian Affiliation | Unknown | + + + | Race | White | + + + | Ethnic Group | Not or | + + + Author + + + | Author | [facility] | | | and [place] | + + + | Organization | [facility] | | | [...] [place] | | | | | [address] | | + + + + + Care Team Providers + +------+ + | Care Electro Plater Name | Role | Phone | + +------+ + PCP | Unavailable | + +------+ + Encounter Details +--------+ + + + + | Date | Type | Department | Care Team | Description | +--------+ + + + + | 04/06/ | Hospital | [facility] | Almas Rivera | | | 2011 | Encounter | MED CTR XRAY [address] | MD Earnest [address] | | | | | [place] | [address] [place] | | | | | [place] [address] | [place] [address] | | | | | [phone] | [phone] | | | | | | | [...] + + + +---------+ + + | Cholecalciferol | | | 0 | 07/22/20 | | | (TH VITAMIN D3) 1999 | | | | 11 | 3 | | UNITS CAPS | | | | | | + + + +---------+ + + | cyanocobalamin | | | 0 | 07/22/20 | | | (VITAMIN B-12) 1,000 | | | | 11 | 3 | | mcg/mL injection | | | | | | + + + +---------+ + + documented as of this encounter Plan of Treatment Not on filedocumented as of this encounter Procedures + +--------+ + + + | Procedure Name | Priori | Date/Time | Associated Diagnosis | Comments | | | ty | | | | + +--------+ + + + | MRI LUMBAR SPINE WO | | 04/06/2012 | | Results for this | | CONTRAST | | 8:42 AM | | procedure are in the | | | | PDT | | results section. | + +--------+ + + + documented in this encounter Results MRI Lumbar Spine wo Contrast (04/06/2012 8:42 AM PDT) + + | Specimen | + + | | + + + + + | Narrative | Performed At | + + + | [facility] | [facility] | | [address] | [facility] | | LUMBAR SPINE CLINICAL | DIAG IMG | | HISTORY: L4-5 INSTABILITY. RIGHT LEG WEAKNESS. TECHNIQUE: | | | Multiplanar, multisequence imaging of the lumbar spine is | | | performed. FINDINGS: On this supine study, alignment is near | | | normal with just minimal retrolisthesis of L3 on L4. Acute | | | reactive endplate changes of a Modic Type I pattern are seen at | | | L2-3, without other areas of abnormal marrow signal. No adjacent | | | abnormalities are present. Level by level analysis of the axial | | | images as follows: L2-3: There is mild facet degenerative change | | | at this level and a broad-based disk bulge across the entire | | | posterior aspect of the interspace. This does not produce | | | significant central canal or foraminal encroachment. L3-4: There | | | is mild facet degenerative change and a small broad-based disk | | | bulge across the entire posterior aspect of the interspace. This | | | produces mild encroachment of the subarticular level but no | | | foraminal or central canal stenosis. L4-5: Moderate facet | | | degenerative change and moderate broad-based disk bulge most | | | prominent centrally. These changes do not produce significant | | | central canal encroachment but mild right-sided foraminal | | | encroachment is seen. L5-S1: Within normal limits. | | | IMPRESSION: 1. MARROW SIGNAL ABNORMALITIES AT L2-3 SUGGESTING | | | INSTABILITY AT THAT LEVEL. ON THIS SUPINE STUDY, THE | | | RETROLISTHESIS OF L3 ON L4 IS MINIMAL. THESE CHANGES ARE PRESENT | | | DESPITE ONLY [id number] FACET DEGENERATIVE CHANGE, GREATEST AT | | | L4-5. 2. MULTILEVEL [id number] DEGENERATIVE DISK CHANGES, | | | MOST NOTABLE AT L4- 5. NO AREAS OF SIGNIFICANT NEURAL ENCROACHMENT | | | ARE SEEN. Dictated Date/Time: 04/06/2012 11:22 Transcribed | | | Date/Time: 04/06/2012 13:52 Consumer Loan Manager: | | | <Electronically Signed by Blair Centeno MD> 04/06/12 1455 | | + + + + + | Procedure Note | + + | Emre, Rad Conversion - 10/22/2013 5:[address] [facility] | | Diagnostic Imaging Department | | [address] | | | | | | | | LUMBAR SPINE | | | | CLINICAL HISTORY: L4-5 INSTABILITY. RIGHT LEG WEAKNESS. | | | | TECHNIQUE: Multiplanar, multisequence imaging of the lumbar spine is | | performed. | | | | FINDINGS: On this supine study, alignment is near normal with just minimal | | retrolisthesis of L3 on L4. Acute reactive endplate changes of a Modic Type I | | pattern are seen at L2-3, without other areas of abnormal marrow signal. No | | adjacent abnormalities are present. Level by level analysis of the axial | | images as follows: | | | | L2-3: There is mild facet degenerative change at this level and a broad-based | | disk bulge across the entire posterior aspect of the interspace. This does not | | produce significant central canal or foraminal encroachment. | | | | L3-4: There is mild facet degenerative change and a small broad-based disk | | bulge across the entire posterior aspect of the interspace. This produces mild | | encroachment of the subarticular level but no foraminal or central canal | | stenosis. | | | | L4-5: Moderate facet degenerative change and moderate broad-based disk bulge | | most prominent centrally. These changes do not produce significant central | | canal encroachment but mild right-sided foraminal encroachment is seen. | | | | L5-S1: Within normal limits. | | | | IMPRESSION: | | 1. MARROW SIGNAL ABNORMALITIES AT L2-3 SUGGESTING INSTABILITY AT THAT LEVEL. | | ON THIS SUPINE STUDY, THE RETROLISTHESIS OF L3 ON L4 IS MINIMAL. THESE CHANGES | | ARE PRESENT DESPITE ONLY FQFK-[id number] FACET DEGENERATIVE CHANGE, GREATEST | | AT L4-5. | | | | 2. MULTILEVEL YKFG-IA-[id number] DEGENERATIVE DISK CHANGES, MOST NOTABLE AT L4- | | 5. NO AREAS OF SIGNIFICANT NEURAL ENCROACHMENT ARE SEEN. | | | | Dictated Date/Time: 04/06/2012 11:22 | | Transcribed Date/Time: 04/06/2012 13:52 | | Consumer Loan Manager: | | <Electronically Signed by Blair Centeno MD> 04/06/12 1455 | + + + +---------+ + + | Performing | Address | City/State/Zipcode | Phone Number | | Organization | | | | + +---------+ + + | [place] | | | | | [facility] | | | | + +---------+ + + documented in this encounter Visit Diagnoses Not on filedocumented in this encounter"
--- OUTSIDE RECORDS SUMMARY | ~2020-06-26 | XMS | Encounter Summary ---
Demographics + + + | Address | [address] | | | [place] [address] | + + + | Home Phone | | + + + | Preferred Language | Unknown | + + + | Marital Status | | + + + | Hindu Affiliation | Unknown | + + + | Race | White | + + + | Ethnic Group | Not or | + + + Author + + + | Author | [facility] | | | and [...] [place] | | | | | [address] | | + + + + + Care Team Providers + +------+ + | Care Mop Worker Name | Role | Phone | + +------+ + | Harris Sauceda MD | PCP | | + +------+ + Reason for Visit + +--------+ + | Reason | Onset | Comments | | | Date | | + +--------+ + | Referral | 05/29/ | | | | 2019 | | + +--------+ + Encounter Details +--------+ + + + + | Date | Type | Department | Care Team | Description | +--------+ + + + + | 05/29/ | Telephone | [facility] | Mikaela Chaevz, | Referral | | 2020 | | NEUROLOGY [address] | MD [address] | | | | | [address] | DRIVE [facility] [address] | | | | | [place], [place] | [place] [address] | | | | | [address] | [phone] | | | | | [phone] | | | +--------+ + + + [...] this encounter Miscellaneous Notes Telephone Encounter - Hallie Nicholson I - 06/06/2020 1:21 PM PDTDennis, is returning call f or Referral and would like a call back. Additional Call Details: States he will schedule from his referral in a few months from no w. elephone Encounter - Melissa Alvarenga - 05/29/2020 9:21 AM PDTElida, is calling regarding Referral and would like a call back. Additional Call Details: Status of scheduling patient If this is a symptom based call, was patient offered triage? Not Applicable If this is a symptom based call and you were unable to immediately transfer the call to a p rovihardik diabetes educator was caller made aware that if at any time he feels it is an emergency they coleman uld call 911 or go to the nearest emergency room? not applicable documented in this encounter Plan of Treatment Not on filedocumented as of this encounter Visit Diagnoses Not on filedocumented in this encounter"
--- OUTSIDE RECORDS SUMMARY | ~2020-06-26 | XMS | Encounter Summary ---
Demographics + + + | Address | [address] | | | [place] [address] | + + + | Home Phone | | + + + | Preferred Language | Unknown | + + + | Marital Status | | + + + | Adventism Affiliation | Unknown | + + + | Race | White | + + + | Ethnic Group | Not or | + + + Author + + + | Author | [facility] | | | and [place] | + + + | Organization | [facility] | | | [...] [place] | | | | | [address] | | + + + + + Care Team Providers + +------+ + | Care Engineering Aid Name | Role | Phone | + +------+ + | Almas Licea MD | PCP | | + +------+ + Encounter Details +--------+ + + + + | Date | Type | Department | Care Team | Description | +--------+ + + + + | 07/04/ | Orders Only | [facility] [place] | Matt Sandoval | Lumbar radiculopathy | | 2016 | | NEUROSURGERY [address] | RADHA [address] | (Primary Dx); S/P | | | | [address] [place], [place] | lumbar fusion | | | | [place], [place] | [address] | | | | | [address] | | | | | | [phone] | | | +--------+ + + + [...] of this encounter Results XR Lumbar Spine 2 or 3 Vw (07/29/2016 2:35 PM PST) + + | Specimen | + + | | + + + + + | Narrative | Performed At | + + + | EXAM: XR LUMBAR SPINE 2 OR 3 VW HISTORY: Postoperative | [facility] | | TECHNIQUE: AP and lateral views of the lumbar spine COMPARISON: | [facility] | | 07/08/2016. FINDINGS: Status post L2-L5 PLIF. Stable mild | [facility] | | superior L5 endplate subsidence. Surgical hardware appears intact. | - IMAGING | | Multilevel lumbar degeneration, as before. Alignment is unchanged. | | | No acute fractures are evident. Stable chronic compression | | | deformities of T12 and L1. Paraspinous soft tissues are unremarkable. | | | There is diffuse atherosclerotic calcification of the aorta. | | | IMPRESSION - No radiographic evidence of interval complication. | | | CRITICAL VALUE: No Dictated and Signed by: Alonzo Davey MD | | | Electronically signed: 07/29/2016 2:48 PM | | + + + + + | Procedure Note | + + | Emre, Rad Results In - 07/29/2016 2:51 PM PST EXAM: XR LUMBAR SPINE 2 OR 3 VW | | | | HISTORY: Postoperative | | | | TECHNIQUE: AP and lateral views of the lumbar spine | | | | COMPARISON: 07/08/2016. | | | | FINDINGS: | | Status post L2-L5 PLIF. Stable mild superior L5 endplate subsidence. Surgical | | hardware appears intact. | | Multilevel lumbar degeneration, as before. | | Alignment is unchanged. | | No acute fractures are evident. | | Stable chronic compression deformities of T12 and L1. | | Paraspinous soft tissues are unremarkable. | | There is diffuse atherosclerotic calcification of the aorta. | | | | IMPRESSION - | | No radiographic evidence of interval complication. | | | | CRITICAL VALUE: No | | | | Dictated and Signed by: Alonzo Davey MD | | Electronically signed: 07/29/2016 2:48 PM | + + + + + + + | Performing | Address | City/State/Zipcode | Phone Number | | Organization | | | | + + + + + | [facility] | [address] | [place] | [phone] | | [facility] | | [address] | | | - IMAGING | | [...]
--- OUTSIDE RECORDS SUMMARY | ~2020-06-26 | XMS | Encounter Summary ---
Demographics + + + | Address | [address] | | | [place] [address] | + + + | Home Phone | | + + + | Preferred Language | Unknown | + + + | Marital Status | | + + + | Jew Affiliation | Unknown | + + + | Race | White | + + + | Ethnic Group | Not or | + + + Author + + + | Author | [facility] | | | and [place] | + + + | Organization | [facility] | | | [...] [place] | | | | | [address] | | + + + + + Care Team Providers + +------+ + | Care Director Of Elementary Education Name | Role | Phone | + +------+ + | Zainab Franco MD | PCP | | + +------+ + Encounter Details +--------+ + + + + | Date | Type | Department | Care Team | Description | +--------+ + + + + | 04/02/ | Hospital | [facility] | Gerardo Leach | Right ankle pain, | | 2019 | Encounter | MED CTR [address] | MD Gumaro [address] | unspecified | | | | [address] [place] | [place], [place] | chronicity | | | | [place], [place] | [address] | | | | | [address] | | | | | | [phone] | | | +--------+ + + + [...] + +--------+ + + + | XR ANKLE RIGHT 3 + | Routin | 12/15/2018 | Right ankle pain, | Results for this | | VW | e | 2:06 PM | unspecified | procedure are in the | | | | PDT | chronicity | results section. | + +--------+ + + + documented in this encounter Results XR Ankle Right 3 + Vw (12/15/2018 2:06 PM PDT) + + | Specimen | + + | | + + + + + | Narrative | Performed At | + + + | CLINICAL INFORMATION: RIGHT ANKLE PAIN. COMPARISON: None | [facility] | | available. FINDINGS: 3 views of the right ankle. Bones: No | | | fracture or dislocation. No periostitis. Joints: Joint spaces | | | are preserved and subchondral surfaces are smooth. Soft tissue: | | | Peripheral vascular calcifications are evident. IMPRESSION - No | | | acute osseous abnormality. Dictated and Signed by: Jorge | | | MD Giovani Electronically signed: 12/15/2018 3:33 PM | | + + + + + | Procedure Note | + + | Regino Andrea Results In - 12/15/2018 3:36 PM PDT CLINICAL INFORMATION: RIGHT ANKLE PAIN. | | | | COMPARISON: None available. | | | | FINDINGS: | | 3 views of the right ankle. | | | | Bones: No fracture or dislocation. No periostitis. | | | | Joints: Joint spaces are preserved and subchondral surfaces are smooth. | | | | Soft tissue: Peripheral vascular calcifications are evident. | | | | IMPRESSION - No acute osseous abnormality. | | | | Dictated and Signed by: Jorge Matute MD | | Electronically signed: 12/15/2018 3:33 PM | + + + +---------+ + + | Performing | Address | City/State/Zipcode | Phone Number | | Organization | | | | + +---------+ + + | [facility] | | | | + +---------+ + + documented in this encounter Visit Diagnoses + + | Diagnosis | + + | Right ankle pain, unspecified chronicity | + + documented in this encounter"
--- OUTSIDE RECORDS SUMMARY | ~2020-06-26 | XMS | Encounter Summary ---
Demographics + + + | Address | [address] | | | [place] [address] | + + + | Home Phone | | + + + | Preferred Language | Unknown | + + + | Marital Status | | + + + | Holiness Affiliation | Unknown | + + + | Race | White | + + + | Ethnic Group | Not or | + + + Author + + + | Author | [facility] | | | and [place] [...] [place] | | | | | [address] | | + + + + + Care Team Providers + +------+ + | Care New Accounts Banking Representative Name | Role | Phone | + +------+ + | Almas Licea MD | PCP | | + +------+ + Reason for Visit + +--------+ + | Reason | Onset | Comments | | | Date | | + +--------+ + | Referral | 03/04/ | | | | 2015 | | + +--------+ + Encounter Details +--------+ + + + + | Date | Type | Department | Care Team | Description | +--------+ + + + + | 03/04/ | Telephone | [facility] | Matt Sandoval | Referral | | 2016 | | NEUROSURGERY [address] | RADHA [address] | | | | | [facility] [address] | [address] [place], [place] | | | | | [place], [place] | [id number] | | | | | [address] | | | | | | [phone] | | | +--------+ + + + [...] this encounter Miscellaneous Notes Telephone Encounter - Imelda Marcos - 03/04/2016 4:27 PM PDTChart note routed to Dr. Licea which states in the plan that referral to Neurology is recommended.Electronically kamille d by Imelda Abhinav Hemant at 03/04/2016 4:29 PM PDTTelephone Encounter - Imelda Marcos - 03/04/2016 4:27 PM PDT----- Message from Bonnie Holcomb MA sent at 02/28/2016 7:47 PD T ----- Regarding: FW: Referral Please advise message below. ----- Message ----- From: Bonnie Khan MA Sent: 02/27/2016 16:53 To: Bonnie Holcomb MA Subject: FW: Referral ----- Message ----- From: Aleksey Dixon Sent: 02/27/2016 16:33 To: [facility] Neurosurgery Clinical Staff Subject: Referral Patient called, requesting to have a referral to see a neurologist sent to his PCP Dr. Licea . Please contact patient to discuss further. documented in this enc ounter Plan of Treatment Not on filedocumented as of this encounter Visit Diagnoses Not on filedocumented in this encounter"
--- OUTSIDE RECORDS SUMMARY | ~2020-06-26 | XMS | Encounter Summary ---
Demographics + + + | Address | [address] | | | [place] [address] | + + + | Home Phone | | + + + | Preferred Language | Unknown | + + + | Marital Status | | + + + | Nondenominational Affiliation | Unknown | + + + | Race | White | + + + | Ethnic Group | Not or | + + + Author + + + | Author | [facility] | | | and [place] | + + + | Organization | [facility] | | [...] [place] | | | | | [address] | | + + + + + Care Team Providers + +------+ + | Care Toy Parts Former Supervisor Name | Role | Phone | + +------+ + | Almas Licea MD | PCP | | + +------+ + Encounter Details +--------+ + + + + | Date | Type | Department | Care Team | Description | +--------+ + + + + | 06/21/ | Hospital | [facility] | William Garcia MD | | | 2016 | Encounter | MED CTR LABORATORY | [address] | | | | | [address] [place] | [place] [address] | | | | | [place] | [phone] | | | | | [address] | | | | | | [phone] | | | +--------+ + + + [...]
--- OUTSIDE RECORDS SUMMARY | ~2020-06-26 | XMS | Encounter Summary ---
Demographics + + + | Address | [address] | | | [place] [address] | + + + | Home Phone | | + + + | Preferred Language | Unknown | + + + | Marital Status | | + + + | Christianity Affiliation | Unknown | + + + | Race | White | + + + | Ethnic Group | Not or | + + + Author + + + | Author | [facility] | | | and [place] | + + + | Organization | [facility] | | | [...] [place] | | | | | [address] | | + + + + + Care Team Providers + +------+ + | Care Custom Shop Worker Name | Role | Phone | + +------+ + | Harris Sauceda MD | PCP | | + +------+ + Reason for Visit + +--------+ + | Reason | Onset | Comments | | | Date | | + +--------+ + | Cancel Surgery | 02/17/ | | | | 2019 | | + +--------+ + Encounter Details +--------+ + + + + | Date | Type | Department | Care Team | Description | +--------+ + + + + | 02/17/ | Telephone | [facility] [place] | Gerardo Leach | Cancel Surgery | | 2019 | | ORTHOPEDIC SURGERY | MD [address] | | | | | [address] | [place] | | | | | [place] | [address] | | | | | [address] | | | | | | [phone] | | | +--------+ + + + [...] this encounter Miscellaneous Notes Telephone Encounter - Michelle Peck Mark Up Designer - 02/17/2019 9:01 AM PDTLeft a [email or web address] email for patient saying that we would like patient to be released by his doctor who is tobias ting him before we schedule any surgery. And if he has any question to call our office. But as of right now appointments and surgery will be cancelled. elephone Encounter - Bri Martinez - 02/17/2019 8:23 AM PDTPatient called and stated that he had to cancel his schedule surgery with Dr. Hatch. Original surgical date 03/10/2019. He said he had medical reasons as to w hy he has to postpone. He would like to reschedule 60 days out. documented in this encounter Plan of Treatment Not on filedocumented as of this encounter Visit Diagnoses Not on filedocumented in this encounter"
--- OUTSIDE RECORDS SUMMARY | ~2020-06-26 | XMS | Clinical Summary ---
Demographics + + + | Address | [address] | | | [place] [address] | + + + | Home Phone | | + + + | Preferred Language | Unknown | + + + | Marital Status | | + + + | Yarsani Affiliation | Unknown | + + + | Race | White | + + + | Ethnic Group | Not or | + + + Author + + + | Author | [facility] | + + + | Organization | [facility] | + + + | Address | Unknown | + + + | Phone | Unavailable | + + + Support + + + + + | Name | Relationship | Address | Phone | + + + + + | Delilah Moffit | ECON | [address] | | | | | [place] | | | | | [address] | | + + + + + Care Team Providers + +------+ + | Care Universal Grinder Tool Name | Role | Phone | + +------+ + | Almas Licea MD | PCP | | + +------+ + Source Comments ROSEANNA is fully live on both [facility] Ambulatory and [facility] InPatient.[facility] Allergies No Known Allergies Medications + + + +---------+------+------+-------+ | Medication | Sig | Dispensed | Refills | Star | End | Statu | | | | | | t | Date | s | | | | | | Date | | | + + + +---------+------+------+-------+ | LEXAPRO 10 mg Oral | take 1 tablet (10 | | 0 | | | Activ | | Tablet | mg) by oral route | | | | | e | | | once daily | | | | | | + + + +---------+------+------+-------+ | aspirin 325 mg | take 1 tablet by | | 0 | | | Activ | | Oral Tablet | oral route once | | | | | e | | | daily | | | | | | + + + +---------+------+------+-------+ | PREVACID 30 mg | take 1 capsule (30 | | 0 | | | Activ | | Oral Capsule, | mg) by oral route | | | | | e | | Delayed | once daily before a | | | | | | | Release(E.C.) | meal | | | | | | + + + +---------+------+------+-------+ | warfarin 5 mg Oral | take 1 tablet by | | 0 | | | Activ | | Tablet | oral route 6 days a | | | | | e | | | week and 1/2 tablet | | | | | | | | by oral route on the | | | | | | | | 7th day | | | | | | + + + +---------+------+------+-------+ | COZAAR 50 mg Oral | take 1 tablet (50 | | 0 | | | Activ | | Tablet | mg) by oral route | | | | | e | | | once daily | | | | | | + + + +---------+------+------+-------+ | CELEBREX 200 mg | take 1 capsule (200 | | 0 | | | Activ | | Oral Capsule | mg) by oral route 2 | | | | | e | | | times per day as | | | | | | | | needed | | | | | | + + + +---------+------+------+-------+ | NORVASC 2.5 mg | take 1 tablet (2.5 | | 0 | | | Activ | | Oral Tablet | mg) by oral route | | | | | e | | | once daily | | | | | | + + + +---------+------+------+-------+ | predniSONE 10 mg | Take 5 mg by mouth | | 0 | | | Activ | | Oral Tablet | once. | | | | | e | + + + +---------+------+------+-------+ | simvastatin 40 mg | Take 40 mg by mouth | | 0 | | | Activ | | Oral Tablet | once daily in the | | | | | e | | | evening. | | | | | | + + + +---------+------+------+-------+ | furosemide 20 mg | Take 20 mg by mouth | | 0 | | | Activ | | Oral Tablet | once daily. | | | | | e | + + + +---------+------+------+-------+ | methotrexate 2.5 | Take by mouth. Take | 60 | 6 | 03/1 | | Activ | | mg Oral Tablet | 3 tablets, once a | | | 6/20 | | e | | | week for two weeks, | | | 09 | | | | | then increase to 5 | | | | | | | | tablets, once a week | | | | | | | | for two weeks, then | | | | | | | | increased to 6 | | | | | | | | tablets, once a week | | | | | | | | and continue on | | | | | | | | this dose. | | | | | | + + + +---------+------+------+-------+ | folic acid 1 mg | Take 1 Tab by mouth | 30 | 6 | 03/1 | | Activ | | Oral Tablet | once daily. | | | 620 | | e | | | | | | 09 | | | + + + +---------+------+------+-------+ | Calcium | Take 2 Tabs by mouth | 90 | 6 | 03/1 | | Activ | | Carbonate-Vitamin D2 | two times daily. | | | 620 | | e | | (CALCIUM + D) | | | | 09 | | | | 600-200 mg-unit Oral | | | | | | | | Tablet | | | | | | | + + + +---------+------+------+-------+ | baclofen 10 mg | Take 10 mg by mouth | | 0 | | | Activ | | Oral Tablet | once daily. 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 | + + + Family History + + +------+ + | Medical History | Relation | Name | Comments | + + +------+ + | Cancer | Father | | | + + +------+ + | Stroke | Father | | | + + +------+ + + +------+ + + | Relation | Name | Status | Comments | + +------+ + + | Father | | | prostate cancer | | | | (Age | | | | | 75) | | + +------+ + + Social History + +-------+ +--------+------+ [...] on file | | + + + Last Filed Vital Signs + + + + + | Vital Sign | Reading | Time Taken | Comments | + + + + + | Blood Pressure | 128/80 | 03/06/2009 11:31 AM | | | | | PDT | | + + + + + | Pulse | 86 | 03/06/2009 11:31 AM | | | | | PDT | | + + + + + | Temperature | - | - | | + + + + + | Respiratory Rate | - | - | | + + + + + | Oxygen Saturation | 97% | 03/06/2009 11:31 AM | | | | | PDT | | + + + + + | Inhaled Oxygen | - | - | | | Concentration | | | | + + + + + | Weight | 73.5 kg (162 lb) | 03/06/2009 11:31 AM | | | | | PDT | | + + + + + | Height | - | - | | + + + + + | Body Mass Index | - | - | | + + + + + Plan of Treatment + + +-------+ + | Health Maintenance | Due Date | Last | Comments | | | | Done | | + + +-------+ + | Pneumococcal | | | | | vaccination (1 of 1 | 0 | | | | - PPSV23) | | | | + + +-------+ + | Influenza (Flu) | | | | | vaccination (#1) | 0 | | | + + +-------+ + Results Not on filefrom Last 3 Months Insurance + +--------+ +--------+-------+---------+------+ | Payer | Benefi | Subscriber | Effect | Phone | Address | Type | | | t Plan | ID | song | | | | | | / | | Dates | | | | | | Group | | | | | | + +--------+ +--------+-------+---------+------+ | [employer] | FIRST | [id number] | Effect | | | PPO | | | CHOICE | | song | | | | | | | | for | | | | | | HEALTH | | all | | | | | | | | dates | | | | + +--------+ +--------+-------+---------+------+ + +--------+ +--------+ + + | Guarantor Name | Accoun | Relation to | Date | Phone | Billing Address | | | t Type | Patient | of | | | | | | | | | | + +--------+ +--------+ + + | Kevin Aleman Sr | Person | Self [birth year] | [address] | | | al/Fam | | 1945 | [phone] | [place] [address] | | | abilio | | | 6 (Home) | | + +--------+ +--------+ + + Advance Directives + + + + + | Type | Date Recorded | Patient | Explanation | | | | Core Man | | + + + + + | Advance | | | | | Directives and | | | | | Living Will | | | | + + + + + | Power of | | | | | Director New Product | | | | + + + + +"
--- OUTSIDE RECORDS SUMMARY | ~2020-06-26 | XMS | Encounter Summary ---
Demographics + + + | Address | [address] | | | [place] [address] | + + + | Home Phone | | + + + | Preferred Language | Unknown | + + + | Marital Status | | + + + | Uatsdin Affiliation | Unknown | + + + | Race | White | + + + | Ethnic Group | Not or | + + + Author + + + | Author | [facility] | | | and [place] | + + + | Organization | [facility] | | [...] [place] | | | | | [address] | | + + + + + Care Team Providers + +------+ + | Care Single Stroke Preformer Name | Role | Phone | + +------+ + | Harris Sauceda MD | PCP | | + +------+ + Encounter Details +--------+ + + + + | Date | Type | Department | Care Team | Description | +--------+ + + + + | 02/05/ | Orders Only | [facility] | [facility] | | | 2010 | | [facility] | [address] | | | | | CLINICAL LABORATORY | [place], | | | | | [address] | [place] [address] | | | | | [place], [place] | [phone] | | | | | [address] | | | | | | [phone] | | | +--------+ + + + [...] | + +--------+ + + + | CULTURE, ANAEROBIC | Routin | 02/05/2011 | | Results for this | | | e | 2:22 PM | | procedure are in the | | | | PDT | | results section. | + +--------+ + + + documented in this encounter Results Culture, Anaerobic (02/05/2011 2:22 PM PDT) + + | Specimen | + + | | + + + + + | Narrative | Performed At | + + + | Specimen Description THUMB LEFT | EXTERNAL LAB | | Testing performed at [facility];[address] | | | [facility];[place] [address] GRAM STAIN | | | 2+ GRAM POSITIVE COCCI | | | 1+ GRAM POSITIVE RODS | | | SMEAR RESULTS CALLED TO AND READ BACK BY: ERNESTINA STRONG AT | | | [address] [facility]. | | | Testing performed at [facility];[address] [facility];[place] [address] CULTURE | | | 1+ NORMAL SKIN SARAH ISOLATED | | | NO SUSCEPTIBILITY | | | TO FOLLOW Testing | | | performed at [facility], [address] [place] [address] | | | REPORT STATUS 02/07/2011 FINAL | | + + + + +---------+ + + | Performing | Address | City/State/Zipcode | Phone Number | | Organization | | | | + +---------+ + + | EXTERNAL LAB | | | | + +---------+ + + documented in this encounter Visit Diagnoses Not on filedocumented in this encounter"
--- OUTSIDE RECORDS SUMMARY | ~2020-06-26 | XMS | Encounter Summary ---
Demographics + + + | Address | [address] | | | [place] [address] | + + + | Home Phone [...] + | Author | [facility] | | | and [place] [...] [place] | | | | | [address] | | + + + + + Care Team Providers + +------+ + | Care Catalytic Case Operator Name | Role | Phone | + +------+ + | Harris Sauceda MD | PCP | | + +------+ + Reason for Referral Service/Procedure (Routine) +--------+---------+ + + + + | Status | Reason | Specialty | Diagnoses / | Referred By | Referred To | | | | | Procedures | Contact | Contact | +--------+---------+ + + + + | Closed | Other | DME | Diagnoses | Hany, | | | | | | Right ankle | Gerardo L, | | | | | | pain, | MD [address] | | | | | | unspecified | [address] | | | | | | chronicity | [place], | | | | | | [place] | [place] [address] | | | | | | contracture | Phone: | | | | | | of ankle | [phone] | | | | | | Acquired | Fax: | | | | | | deformity of | [phone] | | | | | | right foot | | | +--------+---------+ + + + + Encounter Details +--------+ + + + + | Date | Type | Department | Care Team | Description | +--------+ + + + + | 05/20/ | Orders Only | [facility] | Gerardo Leach | Right ankle pain, | | 2019 | | ORTHOPEDIC SURGERY | MD Gumaro [address] | unspecified | | | | [address] [place] | [place], [place] | chronicity (Primary | | | | [place], [place] | [address] | Dx); [place] | | | | [address] | | contracture of | | | | [phone] | | ankle; Acquired | | | | | | deformity of right | | | | | | foot | +--------+ + + + + Social [...] of this encounter Plan of Treatment + + +--------+ + + | Name | Type | Priori | Associated Diagnoses | Order Schedule | | | | ty | | | + + +--------+ + + | DME (Generic), | Outpatient | Routin | Right ankle pain, | Ordered: 05/20/2019 | | External - AMB | Referral | e | unspecified | | | Referral | | | chronicity [place] | | | | | | contracture of ankle | | | | | | Acquired deformity | | | | | | of right foot | | + + +--------+ + + documented as of this encounter Visit Diagnoses + + | Diagnosis | + + | Right ankle pain, unspecified chronicity - Primary | + + | [place] contracture of ankle | + + | Acquired deformity of right foot | + + documented in this encounter"
--- OUTSIDE RECORDS SUMMARY | ~2020-06-26 | XMS | Encounter Summary ---
Demographics + + + | Address | [address] | | | [place] [address] | + + + | Home Phone | | + + + | Preferred Language | Unknown | + + + | Marital Status | | + + + | Temple Affiliation | Unknown | + + + | Race | White | + + + | Ethnic Group | Not or | + + + Author + + + | Author | [facility] | | | and [place] | + + + | Organization | [facility] | | | and [place] | + + + | Address | Unknown | + + + | Phone | Unavailable | + + + Support + + + + + | Name | Relationship | Address | Phone | + + + + + | Delilahparmjit Hernándeznicholas | ECON | [address] | | | | | [place] | | | | | [address] | | + + + + + Care Team Providers + +------+ + | Care Resident Care Director Name | Role | Phone | + +------+ + PCP | Unavailable | + +------+ + Encounter Details +--------+ + + + + | Date | Type | Department | Care Team | Description | +--------+ + + + + | 06/21/ | [facility] | [facility] | | | | 1995 | Encounter | MED CTR XRAY [address] | | | | | | [place] | | | | | | [place] [address] | | | | | | [phone] | | | +--------+ + + + [...]
--- OUTSIDE RECORDS SUMMARY | ~2020-06-26 | XMS | Encounter Summary ---
Demographics + + + | Address | [address] | | | [place] [address] | + + + | Home Phone | | + + + | Preferred Language | Unknown | + + + | Marital Status | | + + + | Pentecostalism Affiliation | Unknown | + + + | Race | White | + + + | Ethnic Group | Not or | + + + Author + + + | Author | [facility] | | | and [...] [place] | | | | | [address] | | + + + + + Care Team Providers + +------+ + | Care Child And Family Counselor Name | Role | Phone | + +------+ + | Harris Sauceda MD | PCP | | + +------+ + Encounter Details +--------+ + + + + | Date | Type | Department | Care Team | Description | +--------+ + + + + | 02/05/ | Orders Only | [facility] | [facility] | | | 2010 | | MEDICAL CENTER | [address] | | | | | CLINICAL LABORATORY | [address] [place], | | | | | [address] | [place] [address] | | | | | [place], [place] | [phone] | | | | | [address] | | | | | | [phone] | | | +--------+ + + + [...] + +--------+ + + + | CULTURE, AFB, AND | STAT | 02/05/2011 | | Results for this | | SMEAR | | 2:22 PM | | procedure are in the | | | | PDT | | results section. | + +--------+ + + + documented in this encounter Results Culture, AFB, and Smear (02/05/2011 2:22 PM PDT) + + | Specimen | + + | | + + + + + | Narrative | Performed At | + + + | Specimen Description THUMB LEFT | EXTERNAL LAB | | Testing performed at [facility] | | | [facility];[place] [address] SPECIAL REQUESTS | | | SUBMITTED ON SWAB | | | Testing performed at [facility], [address] [place] [address] | | | [address] AFB STAIN NO ACID FAST | | | BACILLI SEEN | | | Testing performed at [facility], [address] [place] [address] | | | [address] CULTURE NO ACID FAST | | | BACILLI ISOLATED | | | Testing performed at [facility], [address] [place] [address] | | | [address] REPORT STATUS 03/22/2011 | | | FINAL | | + + + + +---------+ + + | Performing | Address | City/State/Zipcode | Phone Number | | Organization | | | | + +---------+ + + | EXTERNAL LAB | | | | + +---------+ + + documented in this encounter Visit Diagnoses Not on filedocumented in this encounter"
--- OUTSIDE RECORDS SUMMARY | ~2020-06-26 | XMS | Encounter Summary ---
Demographics + + + | Address | [address] | | | [place] [address] | + + + | Home Phone [...] | [facility] | [...] [address] | | | | | [place] | | | | | [address] | | + + + + + Care Team Providers + +------+ + | Care Orthotic Finish Grinding Technician Name | Role | Phone | [...] | | CLINICAL LABORATORY | [address] [place], | | | | | [address] | [place] [address] | | | | | [place], [place] | [phone] | | | | | [address] | | | | | | [phone] | | | +--------+ + + + [...] + +--------+ + + + | CULTURE, FUNGUS | STAT | 02/05/2011 | | Results for this | | | | 2:22 PM | | procedure are in the | | | | PDT | | results section. | + +--------+ + + + documented in this encounter Results Culture, Fungus (02/05/2011 2:22 PM PDT) + + | Specimen | + + | | + + + + + | Narrative | Performed At | + + + | Specimen Description THUMB LEFT | EXTERNAL LAB | | Testing performed at [facility];[address] | | | [facility];[place] [address] CULTURE | | | NO FUNGUS ISOLATED | | | Testing performed at [facility], [address] [facility], | | | [place] [address] REPORT STATUS | | | 03/01/2011 FINAL | | + + + + +---------+ + + | Performing | Address | City/State/Zipcode | Phone Number | | Organization | | | | + +---------+ + + | EXTERNAL LAB | | | | + +---------+ + + documented in this encounter Visit Diagnoses Not on filedocumented in this encounter"
--- OUTSIDE RECORDS SUMMARY | ~2020-06-26 | XMS | Encounter Summary ---
Demographics + + + | Address | [address] | | | [place] [address] | + + + | Home Phone | | + + + | Preferred Language | Unknown | + + + | Marital Status | | + + + | Buddhism Affiliation | Unknown | + + + | Race | White | + + + | Ethnic Group | Not or | + + + Author + + + | Author | [facility] | | | and [place] | + + + | Organization | [facility] | | | and [...] [place] | | | | | [address] | | + + + + + Care Team Providers + +------+ + | Care Pediatric Physiatrist Name | Role | Phone | + +------+ + | Harris Sauceda MD | PCP | | + +------+ + Encounter Details +--------+ + + + + | Date | Type | Department | Care Team | Description | +--------+ + + + + | 02/27/ | Hospital | [facility] | [place], | Lumbar radiculopathy | | 2020 | Encounter | MED CTR XRAY [address] | PA-C [address] | | | | | [place] | [address] [place] | | | | | [place] [address] | [place] [address] | | | | | [phone] | [phone] | | | | | | | [...] | | | (LIPITOR) 40 mg | Daily. | | | | | | tablet | | | | | | + + + +---------+ + + | chlorthalidone 25 | Take 25 mg by mouth | | 0 | | | | mg tablet | Daily. | | | | | + + + +---------+ + + | cholecalciferol | Take 125 mcg by | | 0 | | | | (VITAMIN D3) 125 mcg | mouth Twice a week. | | | | | | (5,000 units) | | | | | | | capsule | | | | | | + + + +---------+ + + | citalopram | Take 40 mg by mouth | | 0 | | | | (CELEXA) 40 mg | Daily. | | | | | | tablet | | | | | | + + + +---------+ + + | cyanocobalamin | Take 1,000 mcg by | | 0 | | | | (VITAMIN B-12) 1,000 | mouth Daily. | | | | | | mcg tablet | | | | | | + + + +---------+ + + | diclofenac | Apply 1 g topically | | 0 | | | | (VOLTAREN) 1% GEL | 2 times daily. | | | | | + + + +---------+ + + | famotidine | | | 0 | 09/14/20 | | | (PEPCID) 20 mg | | | | 19 | | | tablet | | | [...] + + + +---------+ + + | ibuprofen | Take by mouth. | | 0 | 08/09/20 | | | (ADVIL,MOTRIN) 600 | | | | 19 | | | MG tablet | | | | | | + + + +---------+ + + | losartan (COZAAR) | Take 50 mg by mouth | | 0 | | | | 100 MG tablet | Daily. | | | | | + + + +---------+ + + | mycophenolate | Take 500 mg by mouth | | 0 | | | | (CELLCEPT) 500 MG | Daily. | | | | | | tablet | | | | | | + + + +---------+ + + | nystatin | | | 0 | 06/29/20 | | | (MYCOSTATIN) 138862 | | | | 19 | | | UNIT/GM powder | | | | | | + + + +---------+ + + | omeprazole | Take 20 mg by mouth | | 0 | | | | (PRILOSEC) 20 mg | Daily. | | | | | | capsule | | | | | | + + + +---------+ + + | potassium chloride | Take 20 mEq by mouth | | 0 | 06/18/20 | | | (KLOR-CON M20) 20 | Daily. | | | 19 | | | mEq ER tablet | | | | | | + + + +---------+ + + | pramipexole | Take 0.5 mg by mouth | | 0 | 06/08/20 | | | (MIRAPEX) 0.5 MG | nightly. | | | 19 | | | tablet | | | [...] mg by mouth | | 0 | 12/30/19 | | | (COUMADIN) 5 mg | Five times a week. | | | 20 | | | tablet | 2.5 MG (1/2 TABLET) | | | | | | | ON Friday AND | | | | | | | Friday. | | | | | + + + +---------+ + + documented as of this encounter Plan of Treatment Not on filedocumented as of this encounter Procedures + +--------+ + + + | Procedure Name | Priori | Date/Time | Associated Diagnosis | Comments | | | ty | | | | + +--------+ + + + | XR LUMBAR SPINE 4 + | Routin | 02/28/2020 | Lumbar | Results for this | | VW | e | 10:14 AM | radiculopathy | procedure are in the | | | | PDT | | results section. | + +--------+ + + + documented in this encounter Results XR Lumbar Spine 4 [...] + | Emre, Rad Results In - 02/28/2020 10:47 AM PDT EXAM:XR LUMBAR SPINE [...] Diagnosis | + + | Lumbar radiculopathy Thoracic or lumbosacral neuritis or radiculitis, unspecified | + + documented in this encounter"
--- OUTSIDE RECORDS SUMMARY | ~2020-06-26 | XMS | Encounter Summary ---
Demographics + + + | Address | [address] | | | [place] [address] | + + + | Home Phone [...] | [facility] | | | and [...] [place] | | | | | [address] | | + + + + + Care Team Providers + +------+ + | Care Steel Analyst Name | Role | Phone | + [...] + + + | Closed | | MRI | Diagnoses | West, | | | | | | Neurogenic | Matt | | | | | | claudication | RADHA Ramirez | | | | | | Myelopathy | [address] | | | | | | ([facility]ER[facility]) | AVE | | | | | | Procedures | [place] | | | | | | MRI Thoracic | [address] | | | | | | Spine wo | Phone: | | | | | | Contrast | [phone] | | | | | | | Fax: | | | | | | | [phone] | | +--------+--------+ + + + + Diagnostic/Screening (Routine) +--------+--------+ + + + + | Status | Reason | Specialty | Diagnoses / | Referred By | Referred To | | | | | Procedures | Contact | Contact | +--------+--------+ + + + + | Closed | | Radiology | Diagnoses | West, | [facility] | | | | | Neurogenic | Matt | [address] | | | | | claudication | RADHA Ramirez | [place], | | | | | Myelopathy | [address] | [place] | | | | | (FORMERLY [facility]) | AVE | [address] | | | | | Procedures | [address] | Phone: | | | | | MRI Cervical | [address] | [phone] | | | | | Spine wo | Phone: | Fax: | | | | | Contrast | [phone] | [phone] | | | | | | Fax: | | | | | | | [phone] | | +--------+--------+ + + + + Reason for Visit + + + | Reason | Comments | + + + | New Patient | Back pain | + + + Evaluate & Treat (Routine) +--------+--------+ + + + + | Status | Reason | Specialty | Diagnoses / | Referred By | Referred To | | | | | Procedures | Contact | Contact | +--------+--------+ + + + + | Closed | | Neurosurgery | Diagnoses | Nicole | William Garcia | | | | | Spondylosis | Almas Woods MD [address] | | | | | without | MD Earnest | [address] | | | | | myelopathy | [address] | [place], [place] | | | | | or | [address] | [address] | | | | | radiculopath | [place], | Phone: | | | | | y, | [place] [address] | [phone] | | | | | lumbosacral | Phone: | Fax: | | | | | region Pain | [phone] | [phone] | | | | | in right | Fax: | | | | | | hip | [phone] | | | | | | Procedures | | | | | | | [place] OFFICE | | | | | | | CONSULTATION | | | | | | | NEW/ESTAB | | | | | | | PATIENT 60 | | | | | | | MIN | | | +--------+--------+ + + + + Encounter Details +--------+---------+ + + + | Date | Type | Department | Care Team | Description | +--------+---------+ + + + | 09/29/ | Office | [facility] | Matt Sandoval | Spondylolisthesis, | | 2016 | Visit | NEUROSURGERY [address] | RADHA [address] | lumbar region | | | | [address] [place] | (Primary Dx); Lumbar | | | | [place] | [address] | radiculopathy; DDD | | | | [address] | | (degenerative disc | | | | [phone] | | disease), lumbar; | | | | | | Lumbar facet | | | | | | arthropathy; | | | | | | Neurogenic | | | | | | claudication; | | | | | | Myelopathy (HCC) | +--------+---------+ + + + Social [...] + + + | Blood Pressure | 129/84 | 09/29/2015 9:02 AM | | | | | PST | | + + + + + | Pulse | 87 | 09/29/2015 9:02 AM | | | | | PST | | + + + + + | Temperature | - | - | | + + + + + | Respiratory Rate | 24 | 09/29/2015 9:02 AM | | | | | PST | | + + + + + | Oxygen Saturation | - | - | | + + + + + | Inhaled Oxygen | - | - | | | Concentration | | | | + + + + + | Weight | 64.9 kg (143 lb) | 09/29/2015 9:02 AM | | | | | PST | | + + + + + | Height | 167.6 cm (5' 6") | 09/29/2015 9:02 AM | | | | | PST | | + + + + + | Body Mass Index | 23.08 | 09/29/2015 9:02 AM | | | | | PST | | + + + + + documented in this encounter Patient Instructions Patient Instructions Matt Sandoval PA - 09/29/2015 9:49 AM PSTToday we decided to obtain an MRI of your thoracic and cervical spine as well as x-rays of your cervical spine. After these testing have been completed I would like you to return to the office to review the results and make further recommendations documented in this encounter Progress Notes Matt Sandoval PA - 09/29/2015 9:14 AM PSTFormatting of this note might be differen t from the original. AYAAN Simon [address] [facility], [address] [place] [address] FAX: NEUROSURGERY HISTORY AND PHYSICAL EXAMINATION CHIEF COMPLAINT: Chief Complaint Patient presents with New Patient Back pain HISTORY OF PRESENT ILLNESS: The patient is a 70 y.o. male with the complaint of back and r ight hip pain. The patient states approximately 10 years ago he had a CVA which affected no t only his speech but also his right leg. He underwent physical therapy and actually did fa irly well. He has significant improvements of his dysfunction although he did remain having some weakness. Unfortunately over the last couple years he is noticing increasing problems again with right leg weakness. He is undergone physical therapy without much improvement. He complains of low back pain which radiates mostly to the right hip. He notices also wors ening balance issues as well as leg weakness with walking. He has loss of fine motor skills of his hands as well as changes in his handwriting. Despite significant amount of therapy his symptoms continue to worsen. He has difficult time with weakness of his leg. He seems to Shaan his leg at this time. He does use [...] no rheumatoid arthritis. PHYSICAL EXAMINATION: Blood pressure 129/84, pulse 87, resp. rate 24, height 1.676 m (5' 6"), weight 64.864 kg (1 43 lb). Body mass index is 23.09 kg/(m^2). GENERAL: Kevin Aleman Sr. is in [...] no apparent deficits with short or intermediate teacher memory. CRANIAL NERVES: II: Acuity is intact. 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 ASSESSMENT: NEUROSURGICAL DIAGNOSES: Encounter Diagnoses Name Primary? Spondylolisthesis, lumbar region Yes Lumbar radiculopathy DDD (degenerative disc disease), lumbar Lumbar facet arthropathy Neurogenic claudication Myelopathy (HCC) GENERAL DIAGNOSES: Past Medical History Diagnosis Date GERD (gastroesophageal reflux disease) Depression High cholesterol Stroke (HCC) Hypertension Back pain of thoracolumbar region 08/29/2012 Facet arthritis of lumbar region 02/01/2015 Trochanteric bursitis of right hip 02/01/2015 Poor circulation PLAN: Kevin Aleman Sr. presented today, and it was a pleasure seeing this patient and assess ing his problems. The patient has signs and symptoms consistent with myelopathy. He also h as significant radicular symptoms and low back discomfort. She does have a history of a CVA but his symptoms. The last 2 years advance significantly progressive despite continued neeraj oing therapy I had a lengthy discussion with the patient about his options for care including surgical a nd non-surgical options. I believe we need to obtain an MRI of his thoracic and cervical sp ine as well as x-rays of his cervical spine looking for any sign of severe spinal stenosis.. After his images I would like him to return to the office to review the images with to make final recommendations ELECTRONICALLY SIGNED BY: AYAAN Simon, 09/29/2015 9:52 documented in th is encounter Plan of Treatment + +---------+--------+ + + | Name | Type | Priori | Associated Diagnoses | Order Schedule | | | | ty | | | + +---------+--------+ + + | MRI Cervical Spine | Imaging | Routin | Neurogenic | Expected: | | wo Contrast | | e | claudication | 09/29/2015, Expires: | | | | | Myelopathy (HCC) | 09/29/2016 | + +---------+--------+ + + | MRI Thoracic Spine | Imaging | Routin | Neurogenic | Expected: | | wo Contrast | | e | claudication | 09/29/2015, Expires: | | | | | Myelopathy (HCC) | 09/29/2016 | + +---------+--------+ + + | XR CERVICAL SPINE 2 | Imaging | Routin | Neurogenic | Ordered: 09/29/2015 | | OR 3 VIEWS | | e | claudication | | | | | | Myelopathy (HCC) | | + +---------+--------+ + + documented as of this encounter Procedures + +--------+ + + + | Procedure Name | Priori | Date/Time | Associated Diagnosis | Comments | | | ty | | | | + +--------+ + + + | IMAGING REPORT - | | 09/25/2015 | | | | EXTERNAL SCAN | | 12:00 AM | | | | | | PST | | | + +--------+ + + + documented in this encounter Visit Diagnoses + + | Diagnosis | + + | Spondylolisthesis, lumbar region - Primary | + + | Lumbar radiculopathy Thoracic or lumbosacral neuritis or radiculitis, unspecified | + + | DDD (degenerative disc disease), lumbar Degeneration of lumbar or lumbosacral | | intervertebral disc | + + | Lumbar facet arthropathy Lumbosacral spondylosis without myelopathy | + + | Neurogenic claudication Spinal stenosis, lumbar region, with neurogenic claudication | + + | Myelopathy (HCC) Unspecified disease of spinal cord | + + documented in this encounter
--- OUTSIDE RECORDS SUMMARY | ~2020-06-26 | XMS | Encounter Summary ---
Demographics + + + | Address | [address] | | | [place] [address] | + + + | Home Phone | | + + + | Preferred Language | Unknown | + + + | Marital Status | | + + + | Taoism Affiliation | Unknown | + + + | Race | White | + + + | Ethnic Group | Not or | + + + Author + + + | Author | [facility] | | | and [place] | + + + | Organization | [facility] | | [...] [place] | | | | | [address] | | + + + + + Care Team Providers + +------+ + | Care Epic Willow Specialist Name | Role | Phone | + +------+ + | Almas Licea MD | PCP | | + +------+ + Reason for Visit +--------+--------+ + | Reason | Onset | Comments | | | Date | | +--------+--------+ + | Other | 07/04/ | Post injection follow up from 06/07/15 | | | 2014 | | +--------+--------+ + Encounter Details +--------+ + + + + | Date | Type | Department | Care Team | Description | +--------+ + + + + | 07/04/ | Telephone | [facility] | Almas Rivera | Other (Post | | 2014 | | REHABILITATION | MD Earn[address] | injection follow up | | | | MEDICINE [address] | [address] [place] | from 06/07/15) | | | | [address] [place] | [place] [address] | | | | | [place] [address] | [phone] | | | | | [phone] | | | +--------+ + + + [...] Encounter - Kandis Cantu Cert MA - 07/04/2015 3:14 PM PDTDate of injection: 06/07/15 Injection site: hip (both sides), and lower back Pain level: 9 Location of pain: Entire hip area on both sides My pain IMPROVED: IMMEDIATELY after the injection by: 0% My pain IMPROVED: 24 Hours after the injection by: 75% My pain IMPROVED: First Week after the injection by: 50% My pain IMPROVED: Two Weeks after the injection by: 0% Comments: Wants to get a 2nd opinion, will discuss with Dr. Rivera. He said he is done wit h injections. 1. Walking [] Pain does not prevent me from walking any distance. [] Pain prevents me from walking more than one mile. [X] Pain prevents me from walking more than a quarter of a mile. He feels he could do this [] Pain prevents me from walking more than 100 yards. [X] I can only walk using a stick or crutches. He uses a cane [] I am in bed most of the time and have to crawl to the toilet. 2. Sitting [] I can sit in any chair as long as I like. [X] I can sit in my favorite chair as long as I like. He is able to sit in his favorite era ir for about an hour then he has to get up and walk around. [] Pain prevents me from sitting more than one hour. [] Pain prevents me from sitting more than half an hour. [] Pain prevents me from sitting more than 10 minutes. [X] Pain prevents me from sitting at all unless it has a cusion for the buttocks and the ba ck, to hard on his back without a cusion. I called and spoke to Kevin and got him scheduled to see Dr. Rivera on 07/24/2015 to disc uss further treatment. Form scanned into [employer] but date says 2011 under summary of care. elephone Encoun ter - Kandis Cantu Cert MA - 07/04/2015 9:30 AM PDTI called Kevin again, I got a voice mail this time and asked for a call back. I will await his call. elephone Encounter - Kandis Cantu Cert M A - 07/04/2015 8:55 AM PDTI called Kevin to get an update on how his injection went with Pauly Estrada but there was no answer and no voicemail to leave a message. For medicare reas ons we need to have him answer the following questinons. I will call him again later today.E lectronically signed by Bonnie Holcomb MA at 07/04/2015 8:58 AM PDTTelephone EncounKandis Contreras Cert MA - 07/04/2015 8:38 AM PDT documented in th is encounter Plan of Treatment Not on filedocumented as of this encounter Visit Diagnoses Not on filedocumented in this encounter"
--- OUTSIDE RECORDS SUMMARY | ~2020-06-26 | XMS | Encounter Summary ---
Demographics + + + | Address | [address] | | | [place] [address] | + + + | Home Phone [...] + | Author | [facility] | | | and [place] [...] [place] | | | | | [address] | | + + + + + Care Team Providers + +------+ + | Care Caustic Purification Operator Name | Role | Phone | + +------+ + PCP | Unavailable | + +------+ + Encounter Details +--------+ + + + + | Date | Type | Department | Care Team | Description | +--------+ + + + + | 01/30/ | Hospital | [facility] | Almas Rivera | | | 2011 | Encounter | MED CTR XRAY [address] | MD Earnest [address] | | | | | [place] | [address] [place] | | | | | [place] [address] | [place] [address] | | | | | [phone] | [phone] | | | | | | | [...] + + + | XR LUMBAR SPINE | | 01/31/2012 | | Results for this | | COMPLETE INCLUDING | | 10:50 AM | | procedure are in the | | BENDING 6 + VW | | PDT | | results section. | + +--------+ + + + documented in this encounter Results XR Lumbar Spine Complete With Bending 6+ (01/31/2012 10:50 AM PDT) + + | Specimen | + + | | + + + + + | Narrative | Performed At | + + + | [facility] Diagnostic Imaging Department | [facility] | | [address] [facility] | [facility] | | LUMBAR SPINE WITH BENDING: | DIAG IMG | | 01/31/2012 CLINICAL HISTORY: LOW BACK PAIN. COMPARISON: | | | None. FINDINGS: Seven views of the lumbar spine. Five | | | nonrib-bearing lumbar-type vertebral bodies. Mild levoconvex | | | scoliosis. No pars interarticularis defects. In the neutral | | | position, there is very minimal retrolisthesis of L3 on L4 and L4 on | | | L5. There is diffuse disc narrowing at L2-3 through L5-S1. Mild facet | | | arthrosis at L4-5 and L5-S1. Upon flexion and extension, there is | | | some translation at the L3-4 and L4-5 levels. Extensive vascular | | | calcification is present throughout the abdominal aorta. Sacroiliac | | | joints appear unremarkable. IMPRESSION: 1. DIFFUSE LUMBAR | | | SPONDYLOSIS WITH DISC DISEASE PREDOMINATING AT L2-3 THROUGH L5-S1. | | | 2. ABNORMAL TRANSLATION AT L3-4 AND L4-5. < Addendum > | | | ADDENDUM: 03/25/12 0816 ADDENDUM: There is also abnormal | | | translation at L2-3. Given the suggested instability, consider | | | neurosurgical consultation. <Electronically Signed by Saji Schmid | | | MD Vanita> 02/03/12 1832 | | + + + + + | Procedure Note | + + | Regino Andrea Conversion - 10/22/2013 5:22 PM [facility] | | Diagnostic Imaging Department | | [address] [facility] | | | | | | | | LUMBAR SPINE WITH BENDIN01/31/2012 | | | | CLINICAL HISTORY: LOW BACK PAIN. | | | | COMPARISON: None. | | | | FINDINGS: Seven views of the lumbar spine. Five nonrib-bearing lumbar-type | | vertebral bodies. Mild levoconvex scoliosis. No pars interarticularis defects. | | | | In the neutral position, there is very minimal retrolisthesis of L3 on L4 and | | L4 on L5. There is diffuse disc narrowing at L2-3 through L5-S1. Mild facet | | arthrosis at L4-5 and L5-S1. Upon flexion and extension, there is some | | translation at the L3-4 and L4-5 levels. Extensive vascular calcification is | | present throughout the abdominal aorta. Sacroiliac joints appear unremarkable. | | | | IMPRESSION: | | 1. DIFFUSE LUMBAR SPONDYLOSIS WITH DISC DISEASE PREDOMINATING AT L2-3 THROUGH | | L5-S1. | | | | 2. ABNORMAL TRANSLATION AT L3-4 AND L4-5. | | < Addendum > | | ADDENDUM: 03/25/12 0816 | | ADDENDUM: There is also abnormal translation at L2-3. Given the suggested | | instability, consider neurosurgical consultation. | | | | <Electronically Signed by Saji Waldron MD> 02/03/12 7162 | + + + +---------+ + + | Performing | Address | City/State/Zipcode | Phone Number | | Organization | | | | + +---------+ + + | [place] | | | | | [place] | | | | + +---------+ + + documented in this encounter Visit Diagnoses Not on filedocumented in this encounter"
--- OUTSIDE RECORDS SUMMARY | ~2020-06-26 | XMS | Encounter Summary ---
Demographics + + + | Address | [address] | | | [place] [address] | + + + | Home Phone | | + + + | Preferred Language | Unknown | + + + | Marital Status | | + + + | Roman Catholic Affiliation | Unknown | + + + | Race | White | + + + | Ethnic Group | Not or | + + + Author + + + | Author | [facility] | | | and [place] | + + + | Organization | [facility] | | | [...] [place] | | | | | [address] | | + + + + + Care Team Providers + +------+ + | Care Charter Pilot Name | Role | Phone | + +------+ + | Almsa Licea MD | PCP | | + +------+ + Reason for Visit + +--------+ + | Reason | Onset | Comments | | | Date | | + +--------+ + | Imaging Only | 10/18/ | | | | 2015 | | + +--------+ + Encounter Details +--------+ + + + + | Date | Type | Department | Care Team | Description | +--------+ + + + + | 10/18/ | Telephone | [facility] | Matt Sandoval | Imaging Only | | 2015 | | NEUROSURGERY [address] | [address] | | | | | [address] [place], [place] | | | | | [place], [place] | [id number] | | | | | [address] | | | | | | [phone] | | | +--------+ + + + [...] Notes Telephone Encounter - Imelda Marcos - 02/19/2016 12:56 PM PDTScheduled to see Dr. Schmidt 04/23/16. Advised per AYAAN Rosales. He verbalized understanding and will speak to his PCP regarding a referral to a Neurologist. Electronically signed by Imelda Abhinav Hemant at 2015 1:00 PM PDTTelephone Encounter - Imelda Marcos Abhinav - 02/14/2016 10:56 AM PDTCall lynn rned. Left a voicemail requesting callback. elephone Encounter - Matt Sandoval PA - 02/13/2016 4:35 PM PDTWe can set up an appointment for him to vi sit with Dr. schmidt to make further recommendations. However prior to that appointment the alessandro wing needs to have a neurology consultation as I recommended to help further evaluate his sy mptoms which are not explained. Many of his symptoms will not be improved by surgery as he and I discussed and it is very important that we have the help of a neurologist to help eval uate his symptoms. Thank you elephone Encounter - Zakiya Marcosmark Castro - 02/13/2016 3:52 PM PDTDomnis states that he was previously hesitant to proceed with surgery but is now having constant pain in t he low back area, does not radiate into his buttock or legs. He has not seen a neurologist as previously recommended by AYAAN Rosales. Please advise if surgery is recommended or if pa yomairadenny should continue with conservative therapies? elephone Encounter - Cielo Quiles RN - 10/31/2015 3:55 PM PSTCalled and advised Kevin per AYAAN Quinones. He verbalized understanding. Electronica lly signed by Cielo Quiles RN at 10/31/2015 3:56 PM PSTTelephone Encounter - Maximo Sandoval PA - 10/26/2015 12:47 PM PSTHis cervical x-rays do not show any significant inst ability on flexion and extension views.. He should continue with plans as we discussed at o ur last visit. Thank you 12:4 7 PM PSTTelephone Encounter - Kandis Cantu Cert MA - 10/25/2015 2:56 PM PSTX-rays on iS ite from 10/24/15, please advise.Electronically signed by Bonnie Holcomb MA at 6 2:57 PM PSTTelephone Encounter - Jordan Pa - 10/25/2015 11:00 AM PSTPatient called e office to let us know xrays done yesterdayElectronically signed by Jordan Pa at 016 11:01 AM PSTTelephone Encounter - Aliya Linda RN - 10/25/2015 9:29 AM PSTCervical x-rays from [facility] available on I-site. Please Review. elephone Encounter - Cielo Quiles RN - 10/24/2015 1:29 PM PSTHe is completing h is cervical xrays today 10/24/15 at [facility]. Once received route to AYAAN Quinones for review. E lectronically signed by Cielo Quiles RN at 10/24/2015 1:30 PM PSTTelephone Encounter - Cielo Quiles RN - 10/23/2015 12:56 PM PSTMade in error. elephone Encounter - Cielo Quiles RN - 016 2:46 PM PSTCalled Kevin and asked him if he completed his cervical xrays. He stated th at he has not but he will get this done in a day or two. He will call our office once comple marina. Please route to AYAAN Quinones for review. documented in this encounter Plan of Treatment Not on filedocumented as of this encounter Visit Diagnoses Not on filedocumented in this encounter"
--- OUTSIDE RECORDS SUMMARY | ~2020-06-26 | XMS | Encounter Summary ---
Demographics + + + | Address | [address] | | | [place] [address] | + + + | Home Phone | | + + + | Preferred Language | Unknown | + + + | Marital Status | | + + + | Tenriism Affiliation | Unknown | + + + | Race | White | + + + | Ethnic Group | Not or | + + + Author + + + | Author | [facility] | | | and [place] | + + + | Organization | [facility] | | | [...] [place] | | | | | [address] | | + + + + + Care Team Providers + +------+ + | Care Quality Assurance Calibrator Name | Role | Phone | + [...] | | | [address] | [place] [address] | | | | | [place] [address] | | | | | | [phone] | | | +--------+ + + + [...] + | MRI LUMBAR SPINE WO | Routin | 03/22/2020 | | Results for this | | CONTRAST | e | 12:05 AM | | procedure are in the | | | | PDT | | results section. | + +--------+ + + + documented in this encounter Results MRI Lumbar Spine wo Contrast (03/22/2020 12:05 AM PDT) + + | Specimen [...]
--- OUTSIDE RECORDS SUMMARY | ~2020-06-26 | XMS | Encounter Summary ---
Demographics + + + | Address | [address] | | | [place] [address] | + + + | Home Phone [...] | Author | [facility] | | | and [...] [place] | | | | | [address] | | + + + + + Care Team Providers + +------+ + | Care Trimmer Buffing Wheel Name | Role | Phone | + +------+ + | Almas Licea MD | PCP | | + +------+ + Reason for Visit +--------+--------+ + | Reason | Onset | Comments | | | Date | | +--------+--------+ + | Other | 06/25/ | | | | 2015 | | +--------+--------+ + Encounter Details +--------+ + + + + | Date | Type | Department | Care Team | Description | +--------+ + + + + | 06/25/ | Telephone | [facility] | William Garcia MD | Other | | 2016 | | NEUROSURGERY [address] | [address] | | | | | [facility] [address] | [place] [address] | | | | | [place] | [phone] | | | | | [address] | | | | | | [phone] | | | +--------+ + + + [...] this encounter Miscellaneous Notes Telephone Encounter - Matt Sandoval PA-C - 07/02/2016 6:46 AM PDTIt can be normal to have bruising at the injection site from Lovenox. However they should have this evaluate d and discussed with the Coumadin clinic provider elephone Encounter - Christine Butts RN - 07/01/2016 4: 05 PM PDTPatient advised to contact coumadin clinic in regards to bruising. Patient verbaliz ed understanding. He states he only has 2 more injections, so he might "just tough it out." Please advise with any further advise. Electronically signed by Christine Butts RN at 2015 4:32 PM PDTTelephone Encounter - Princess So - 07/01/2016 3:21 PM PDTPatient call ed as the bridging injections he is doing is causing large black and blue bruising on his st omach. The instructions indicated that he is to call the doctor is the bruising occurs. Pl ease call back as soon as possible. 3: 22 PM PDTTelephone Encounter - Christine Butts RN - 06/25/2016 5:10 PM PDTMike from the [facility] called to advise office that they are going to put patient on bridging lovenox prior to surgery. Patient is currently taking Coumadin 2.5mg Mon, Wed, Fri; 5mg Tue, Thur, Sat, Sun. Patient will take Lovenox 1.5mg/kg dose 7 days prior to surgery, but nothing 24 ho urs prior to surgery. They are faxing PT/INR results to the office at this time. PT/INR was 2.9 on 06/25/16. docum ented in this encounter Plan of Treatment Not on filedocumented as of this encounter Visit Diagnoses Not on filedocumented in this encounter
--- OUTSIDE RECORDS SUMMARY | ~2020-06-26 | XMS | Encounter Summary ---
Demographics + + + | Address | [address] | | | [place] [address] | + + + | Home Phone | | + + + | Preferred Language | Unknown | + + + | Marital Status | | + + + | Restoration Affiliation | Unknown | + + + | Race | White | + + + | Ethnic Group | Not or | + + + Author + + + | Author | [facility] | | | and [place] | + + + | Organization | [facility] | | | and [...] [place] | | | | | [address] | | + + + + + Care Team Providers + +------+ + | Care Svp Digital Sales Name | Role | Phone | + [...] Closed | | Radiology | Diagnoses | Nicole, | [facility] | | | | | Darshan | Almas | [address] | | | | | syndrome, | MD Earnest | [place], | | | | | lumbar | [address] | [place] | | | | | Procedures | [address] | [address] | | | | | MRI Lumbar | [place], | Phone: | | | | | Spine wo | [place] [address] | [phone] | | | | | Contrast | Phone: | Fax: | | | | | | [phone] | [phone] | | | | | | Fax: | | | | | | | [phone] | | +--------+--------+ + + + + Encounter Details +--------+ + + + + | Date | Type | Department | Care Team | Description | +--------+ + + + + | 08/02/ | Orders Only | [facility] [place] | Almas Rivera | Facet syndrome, | | 2014 | | NEUROSURGERY [address] | MD Earnest [address] | lumbar (Primary Dx) | | | | [address] | [address] [place] | | | | | [place], [place] | [place] [address] | | | | | [address] | [phone] | | | | | [phone] | | | +--------+ + + + [...] +---------+--------+ + + | MRI Lumbar Spine wo | Imaging | Routin | Facet syndrome, | Expected: | | Contrast | | e | lumbar | 08/02/2015, Expires: | | | | | | 08/02/2016 | + +---------+--------+ + + documented as of this encounter Visit Diagnoses + + | Diagnosis | + + | Facet syndrome, lumbar - Primary Other symptoms referable to back | + + documented in this encounter"
--- OUTSIDE RECORDS SUMMARY | ~2020-06-26 | XMS | Encounter Summary ---
Demographics + + + | Address | [address] | | | [place] [address] | + + + | Home Phone [...] + | Author | [facility] | | | and [...] [place] | | | | | [address] | | + + + + + Care Team Providers + +------+ + | Care Hand Flatwork Finisher Name | Role | Phone | + [...] + + + | Closed | | | Diagnoses | Sucharda, | [facility] | | | | | | William E, | [facility] | | | | | Claudication | PA-C [address] | | | | | (HCC) Low | [address] | [address] | | | | | back pain | [address] | [place], [place] | | | | | potentially | [place], | [address] | | | | | associated | [place] [address] | Phone: | | | | | with | Phone: | [phone] | | | | | radiculopath | [phone] | Fax: | | | | | y Status | Fax: | [phone] | | | | | post lumbar | [phone] | | | | | | spinal | | | | | | | fusion | | | | | | | Procedures | | | | | | | MRI Lumbar | | | | | | | Spine wo | | | | | | | Contrast | | | | | | | MRI Lumbar | | | | | | | Spine wo | | | | | | | Contrast | | | +--------+--------+ + + + + Evaluate & Treat (Routine) +--------+ + + + + + | Status | Reason | Specialty | Diagnoses / | Referred By | Referred To | | | | | Procedures | Contact | Contact | +--------+ + + + + + | Closed | Specialty | Physical | Diagnoses | Logan, | Garth Dean | | | Services | Medicine and | Low back | William Pastrana, | Victoriano Woods MD [address] | | | Required | Rehabilitatio | pain | PA-C [address] | | | | n | potentially | [address] | [place], | | | | | associated | [address] | [place] [address] | | | | | with | [place], | Phone: | | | | | radiculopath | [place] [address] | [phone] | | | | | y Status | Phone: | Fax: | | | | | post lumbar | [phone] | [phone] | | | | | spinal | Fax: | | | | | | fusion | [phone] | | +--------+ + + + + + Diagnostic/Screening (Routine) +--------+--------+ + + + + | Status | Reason | Specialty | Diagnoses / | Referred By | Referred To | | | | | Procedures | Contact | Contact | +--------+--------+ + + + + | Closed | | | Diagnoses | Sucharda, | [facility] | | | | | Cervicalgia | William Pastrana, | [facility]OSPITAL | | | | | [place] | PA-C [address] | | | | | reflex | [address] | [address] | | | | | positive | [address] | [place], [place] | | | | | Hyperreflexi | [place], | [address] | | | | | a Positive | [place] [address] | Phone: | | | | | Tinel's sign | Phone: | [phone] | | | | | Numbness | [phone] | Fax: | | | | | and tingling | Fax: | [phone] | | | | | in both | [phone] | | | | | | hands | | | | | | | Procedures | | | | | | | MRI Cervical | | | | | | | Spine wo | | | | | | | Contrast | | | +--------+--------+ + + + + Reason for Visit + + + | Reason | Comments | + + + | Follow-up | Back pain | + + + Evaluate & Treat (Routine) + +--------+ + + + + | Status | Reason | Specialty | Diagnoses / | Referred By | Referred To | | | | | Procedures | Contact | Contact | + +--------+ + + + + | Authorized | | Neurosurgery | Diagnoses | [place], | [facility] | | | | | Chronic low | Harris Wilson MD | Neurosurgery | | | | | back pain | [address] | [address] | | | | | [address] | [address] | | | | | | [place], | [place], | | | | | | [place] [address] | [place] [address] | | | | | | Phone: | Phone: | | | | | | [phone] | [phone] | | | | | | Fax: | Fax: | | | | | | [phone] | [phone] | + +--------+ + + + + Encounter Details +--------+---------+ + + + | Date | Type | Department | Care Team | Description | +--------+---------+ + + + | 02/27/ | Office | [facility] [place] | William Ford Victoriano, | Low back pain | | 2020 | Visit | NEUROSURGERY [address] | PA-C [address] | potentially | | | | [address] | [address] [place] | associated with | | | | [place], [place] | [place] [address] | radiculopathy | | | | [address] | [phone] | (Primary Dx); | | | | [phone] | | Claudication (HCC); | | | | | | Status post lumbar | | | | | | spinal fusion; | | | | | | Cervicalgia; | | | | | | Bess's reflex | | | | | | positive; | | | | | | Hyperreflexia; | | | | | | Positive Tinel's | | | | | | sign; Numbness and | | | | | | tingling in both | | | | | | hands | +--------+---------+ + + + Social History [...] + + + | Blood Pressure | 88/58 | 02/28/2020 11:01 AM | | | | | PDT | | + + + + + | Pulse | 69 | 02/28/2020 11:01 AM | | | | | PDT | | + + + + + | Temperature | - | - | | + + + + + | Respiratory Rate | - | - | | + + + + + | Oxygen Saturation | 95% | 02/28/2020 11:01 AM | | | | | PDT | | + + + + + | Inhaled Oxygen | - | - | | | Concentration | | | | + + + + + | Weight | 65.8 kg (145 lb) | 02/28/2020 11:01 AM | | | | | PDT | | + + + + + | Height | 167.6 cm (5' 6") | 02/28/2020 11:01 AM | | | | | PDT | | + + + + + | Body Mass Index | 23.4 | 02/28/2020 11:01 AM | | | | | PDT [...] of this encounter Patient Instructions Patient Instructions William Ford PA-C - 02/28/2020 10:30 AM PDTI have referred you t o physiatry for the primary pain that you are having on the left side of your low back. To evaluate you for your neck and low back for concerns of a pinched spinal cord I have ord ered an MRI. We will have you follow-up with Dr. Muniz to review results and discuss appropr iate treatment. documented in this encounter Progress Notes William Ford PA-C - 02/28/2020 10:30 AM PDT William Ford PA-C [address] [place] [address], [address] [place] [address] FAX: [phone] NEUROSURGERY HISTORY AND PHYSICAL EXAMINATION CHIEF COMPLAINT: Chief Complaint Patient presents with Follow-up Back pain HISTORY OF PRESENT ILLNESS: Kevin Gutierrez [facility]. is a 74 y.o. male with a history of a buzz mbar fusion for radiculopathy. He was last seen on 05/05/2017 by Matt Sandoval PA-C for a fo llow up on his symptoms. He presents today with the complaint of back pain. The initial surg yesica back in 2017 was primarily for back for back pain. The surgery did not help with back pa in but did not make it worse. 95 % of his pain is on the lower aspect of back and off to the left. 5-10% of the time it will radiate across the back but that is after doing activities such as yard work. His pain is constant and will rang between a 2-8/10. He denies any leg sy mptoms. He estimates he can walk for about 10 minutes before he has to stop because of leg w eakness and SOB. After sitting for a few minutes the legs will feel better and he can walk a gain. This is declining and a year ago he could walk for a good 20 minutes. He states he als o cant bend over and this is because of back pain. In addition to his back pain, upon questioning he identifies that he has been having increa sing neck pain. This is rated as mild to moderate. Although it is not constant, it is pres ent most of his daylight hours. Patient also has tingling and numbness that radiates down t he right arm. He has reportedly been dropping things and struggles with fine motor tasks us ing his hands. He has not had any PT in the last year on his back. He has not seen a chiropractor or acupu ncturist. He takes tylenol and aspirin and does not find that this helps. PAST MEDICAL HISTORY: Past Medical History: Diagnosis Date Abdominal pain Adverse effect of anesthesia high blood pressure after stomach biopsy & back surgery Alcoholism ([facility]) Anemia Back pain Back pain of thoracolumbar region 08/29/2012 BPH with urinary obstruction Cataract Cerebral artery occlusion with cerebral infarction ([facility]) Chronic back pain CKD (chronic kidney disease), stage III ([facility]) Colonic disorder CVA (cerebral vascular accident) ([facility]) right sided weakness Depression Dysphagia Edema Esophageal reflux Essential hypertension Facet arthritis of lumbar region 02/01/2015 Facial weakness late Cvd effects Foot drop, right foot Gait instability GERD (gastroesophageal reflux disease) Hard of hearing hearing aids Hiatal hernia High cholesterol History of blood clots HLD (hyperlipidemia) Hypercholesterolemia Idiopathic retroperitoneal fibrosis Involuntary movements Lumbago Major depression Other muscle spasm Poor circulation Right inguinal hernia RLS (restless legs syndrome) Spastic hemiplegia affecting right dominant side ([facility]) Stroke ([facility]) right sided weakness Trochanteric bursitis of right hip 02/01/2015 Vitamin B12 deficiency Vitamin D deficiency Wears dentures PAST SURGICAL HISTORY: Past Surgical History: Procedure Laterality Date ABDOMINAL RETROPERITONEAL BIOPSY 2007 ACHILLES TENDON SURGERY Right 05/19/2019 Procedure: Right foot gastrocnemius release,and release of flexor tendons, and release jimenez llucis adductor, and pinning of right toes; Surgeon: Gerardo Leach MD; Location: [facility] ANUS SURGERY Right 2012 lateral internal sphincterectomy CATARACT REMOVAL Bilateral [address] Hudson, Rectal irritation HEMORRHOID SURGERY 2009 LAPAROTOMY 03/2008 LUMBAR SPINE SURGERY Right 07/03/2016 Procedure: L2-3, L3-4 Lateral Anterior Interbody Fusion, L4-5 Transforaminal Lumbar Interb nathanael Fusion, Posterior Instrumentation at L2-3, L3-4, L4-5; Surgeon: William Garcia MD; Locat ion: [facility] MAIN OR MECKEL DIVERTICULUM EXCISION 2008 incidental removal SALIVARY GLAND SURGERY Right 2000 biopsy SKIN CANCER EXCISION 2013 cancer spots STOMACH SURGERY Biopsy THUMB AMPUTATION Left 2010 Partial thumb amputation THUMB AMPUTATION Right 2010 partial UPPER GASTROINTESTINAL ENDOSCOPY N/A 07/02/2017 Procedure: EGD W BERTRAND AND ANESTHESIA; Surgeon: Felix Graham MD; Location: [facility] M EDICAL PROCEDURE UNIT VASECTOMY CURRENT MEDICATIONS: Current Outpatient Medications Medication Sig Dispense Refill acetaminophen (TYLENOL) 325 mg tablet Take 650 mg by mouth every 4 hours as needed for Pain. atorvaSTATin (LIPITOR) 40 mg tablet Take 40 mg by mouth Daily. chlorthalidone 25 mg tablet Take 25 mg by mouth Daily. cholecalciferol (VITAMIN D3) 125 mcg (5,000 units) capsule Take 125 mcg by mouth Twice a week. citalopram (CELEXA) 40 mg tablet Take 40 mg by mouth Daily. cyanocobalamin (VITAMIN B-12) 1,000 mcg tablet Take 1,000 mcg by mouth Daily. diclofenac (VOLTAREN) 1% GEL Apply 1 g topically 2 times daily. famotidine (PEPCID) 20 mg tablet finasteride (PROSCAR) 5 mg tablet Take 5 mg by mouth Daily. gabapentin (NEURONTIN) 300 mg capsule Take 300 mg by mouth 2 times daily. HYDROcodone-acetaminophen (HYCET) 7.5-325 mg/15 mL liquid Take 15 mLs by mouth 4 times daily as needed for Pain. 240 mL 0 ibuprofen (ADVIL,MOTRIN) 600 MG tablet Take by mouth. losartan (COZAAR) 100 MG tablet Take 50 mg by mouth Daily. mycophenolate (CELLCEPT) 500 MG tablet Take 500 mg by mouth Daily. nystatin (MYCOSTATIN) 292740 UNIT/GM powder omeprazole (PRILOSEC) 20 mg capsule Take 20 mg by mouth Daily. potassium chloride (KLOR-CON M20) 20 mEq ER tablet Take 20 mEq by mouth Daily. pramipexole (MIRAPEX) 0.5 MG tablet Take 0.5 mg by mouth nightly. tamsulosin (FLOMAX) 0.4 mg CAPS Take 0.4 mg by mouth nightly. traZODone (DESYREL) 50 mg tablet Take 75 mg by mouth nightly. warfarin (COUMADIN) 5 mg tablet Take 5 mg by mouth Five times a week. 2.5 MG (1/2 TABLE T) ON Friday AND Friday. No current facility-administered medications for this visit. ALLERGIES: Allergies Allergen Reactions Cymbalta [Duloxetine] Unknown Diphenhydramine Itching One time SOCIAL HISTORY: The patient reports that he quit smoking about 18 years ago. His smoking use included ciga rettes. He started smoking about 48 years ago. He has a 30.00 pack-year smoking history. He quit smokeless tobacco use about 33 years ago. He reports current alcohol use. He reports th at he does not use drugs. FAMILY HISTORY: Family History Problem Relation Age of Onset Hypertension Mother Stroke Mother Alcohol abuse Father Prostate cancer Father Stroke Father Ischemic No known problems Son No known problems Child No known problems Child Arthritis Other Diabetes Other High cholesterol Other No known problems Maternal Grandmother No known problems Maternal Grandfather No known problems Paternal Grandmother No known problems Paternal Grandfather Review of Systems Constitutional: Positive for malaise/fatigue. HENT: Positive for hearing loss and sinus pain. Eyes: Positive for blurred vision. Respiratory: Positive for wheezing. Gastrointestinal: Positive for constipation and diarrhea. Genitourinary: Positive for frequency. Musculoskeletal: Positive for back pain and neck pain. Neurological: Positive for weakness. Endo/Heme/Allergies: Bruises/bleeds easily. Psychiatric/Behavioral: Positive for depression and memory loss. The patient is nervous/anx ious. PHYSICAL EXAMINATION: Blood pressure (!) 88/58, pulse 69, height 1.676 m (5' 6"), weight 65.8 kg (145 lb), SpO2 9 5 %. Body mass index is 23.4 kg/m. GENERAL: Kevin Gutierrez [facility] is in no acute distress with unlabored respirations. He yip s appear comfortable throughout the exam today. HEENT: Head: Normocephalic/atraumatic with no areas of recent trauma. Eyes: Normal sclerae without icterus. Ears: No drainage or tenderness. Nasopharynx: Clear without drainage. Oropharynx: Clear without erythema. NECK (ANTERIOR): Supple and without palpable masses. CHEST: Clear to ausculation without crackles or wheeze. HEART: Regular rate and rhythm without murmurs. ABDOMEN: Soft, non-tender, non-distended, and without palpable masses. SPINE: There is moderate tenderness of the midline of the cervical spine. The lumbar spine shows there is no tenderness in the midline of the lumbar spine at L1-S1. Patient does have pain upon palpation over an area above the left posterior superior iliac spine. To palpation, there is moderate left sided myofascial tenderness. There is no significant pain to provocative testing of the SI joint. There is no major deformity noted. EXTREMITIES: No cyanosis, clubbing, or edema. Distal pulses are palpable. NEUROLOGICAL EXAM: MENTAL STATUS: The patient is awake, alert, and oriented. He follows simple and complex commands. His speech is fluent, he comprehends speech well, and he repeats well. He has no apparent deficits with short or long term care pharmacist memory. CRANIAL NERVES: II: Acuity is intact. [...] Intrinsics 5 5 Ulnar Intrinsics 5 5 Category Development Manager Strength 5 5 Hip Flexion 5 5 Hip Extension 5 5 Knee Flexion 5 5 Knee Extension 5 5 Dorsiflexion 5 5 Extensor Hallicus Longus 5 5 Plantarflexion 5 5 SENSORY EXAM: Sensory exam shows no diminished sensation to light touch or pain throughout the upper and lower extremities. REFLEXES: (2 OR 2+ IS NORMAL) REFLEX: RIGHT LEFT BICEPS 3+ 0+ BRACHIORADIALIS 3+ 0+ TRICEPS 3+ 0+ PATELLAR 2+ 2+ ACHILLES 2+ 2+ BESS'S positive ABSENT CLONUS 1+ extra beat ABSENT BABINSKI DOWNGOING DOWNGOING GAIT: Gait is steady with use of a walker. PERIPHERAL NERVE/MISC: Tinel is negative at the right wrist TEST AND RADIOGRAPHIC REVIEW: His imaging was reviewed in detail today during the visit. X-ray of his back from February 27 shows no significant adjacent segment disease at the unfused level of L5-S1. Also, no signi ficant obvious adjacent segment disease is present at L1-L2. L2-L4 appears to have fused we ll. This is more difficult to appreciate at L4-L5. There is no evidence of broken screws o r loose hardware. ASSESSMENT: NEUROSURGICAL DIAGNOSES: Encounter Diagnoses Name Primary? Claudication (HCC) Yes Low back pain potentially associated with radiculopathy Status post lumbar spinal fusion Cervicalgia Bess's reflex positive Hyperreflexia Positive Tinel's sign Numbness and tingling in both hands GENERAL DIAGNOSES: Past Medical History: Diagnosis Date Abdominal pain Adverse effect of anesthesia high blood pressure after stomach biopsy & back surgery Alcoholism ([facility]) Anemia Back pain Back pain of thoracolumbar region 08/29/2012 BPH with urinary obstruction Cataract Cerebral artery occlusion with cerebral infarction ([facility]) Chronic back pain CKD (chronic kidney disease), stage III ([facility]) Colonic disorder CVA (cerebral vascular accident) ([facility]) right sided weakness Depression Dysphagia Edema Esophageal reflux Essential hypertension Facet arthritis of lumbar region 02/01/2015 Facial weakness late Cvd effects Foot drop, right foot Gait instability GERD (gastroesophageal reflux disease) Hard of hearing hearing aids Hiatal hernia High cholesterol History of blood clots HLD (hyperlipidemia) Hypercholesterolemia Idiopathic retroperitoneal fibrosis Involuntary movements Lumbago Major depression Other muscle spasm Poor circulation Right inguinal hernia RLS (restless legs syndrome) Spastic hemiplegia affecting right dominant side ([facility]) Stroke ([facility]) right sided weakness Trochanteric bursitis of right hip 02/01/2015 Vitamin B12 deficiency Vitamin D deficiency Wears dentures PLAN: Kevin Matt Aleman Sr. presented today, and it was a pleasure seeing this patient and assess ing his neurologic problems. The patient came to our office with a complaint of pain over the left posterior superior il iac spine. This could be related to the left SI joint. However, if this is the case, it is a different presentation. What I am more concerned about is his symptoms of spinal stenosi s as well as his upper extremity symptoms of dropping items and poor coordination with his h ands. This in combination with his asymmetric hyperreflexia and positive Bess's has prom pted me to order a MRI of his cervical spine and lumbar spine. Once these are complete we w ill have him follow-up with Dr. Muniz. For the pain overlying his left posterior superior iliac spine I have made a referral to ysiatry. Patient has expressed a strong desire to avoid surgery if at all possible. Given that he did not get any reported relief from his previous large surgery I would certainly hansen pport this. I have conveyed to him that the only reason we would recommend surgery is if th ere was significant compression on his spinal cord or severe spinal stenosis that could be r elieved with a relatively small surgery. Patient verbalizes understanding and is willing to proceed as recommended. If there are any further questions or concerns we will see him paula k on an as-needed basis. ELECTRONICALLY SIGNED BY: William Ford PA-C, 02/28/2020 12:08 PM PDTElectronically si gned by William Ford PA-C at 02/28/2020 12:11 PM PDTdocumented in this encounter Miscellaneous Notes Addendum Note - Sandra Stewart RN - 02/28/2020 10:30 AM PDT Addended by: SANDRA STEWART on: 02/29/2020 09:19 AM Modules accepted: Orders documented in this en counter Plan of Treatment + +---------+--------+ + + | Name | Type | Priori | Associated Diagnoses | Order Schedule | | | | ty | | | + +---------+--------+ + + | MRI Cervical Spine | Imaging | Routin | Cervicalgia | Expected: 03/09/2020 | | wo Contrast | | e | Bess's reflex | (Approximate), | | | | | positive | Expires: 02/26/2021 | | | | | Hyperreflexia | | | | | | Positive Tinel's | | | | | | sign Numbness and | | | | | | tingling in both | | | | | | hands | | + +---------+--------+ + + | MRI Lumbar Spine wo | Imaging | Routin | Claudication (HCC) | Expected: 03/09/2020 | | Contrast | | e | Low back pain | (Approximate), | | | | | potentially | Expires: 02/26/2021 | | | | | associated with | | | | | | radiculopathy | | | | | | Status post lumbar | | | | | | spinal fusion | | + +---------+--------+ + + + + +--------+ + + | Name | Type | Priori | Associated Diagnoses | Order Schedule | | | | ty | | | + + +--------+ + + | Ambulatory referral | Outpatient | Routin | Low back pain | Ordered: 02/28/2020 | | to Physical Medicine | Referral | e | potentially | | | Rehab | | | associated with | | | | | | radiculopathy | | | | | | Status post lumbar | | | | | | spinal fusion | | + + +--------+ + + documented as of this encounter Visit Diagnoses + + | Diagnosis | + + | Low back pain potentially associated with radiculopathy - Primary | + + | Claudication (HCC) Peripheral vascular disease, unspecified | + + | Status post lumbar spinal fusion Arthrodesis status | + + | Cervicalgia | + + | Bess's reflex positive Abnormal reflex | + + | Hyperreflexia Abnormal reflex | + + | Positive Tinel's sign Disturbance of skin sensation | + + | Numbness and tingling in both hands | + + documented in this encounter
--- OUTSIDE RECORDS SUMMARY | ~2020-06-26 | XMS | Encounter Summary ---
Demographics + + + | Address | [address] | | | [place] [address] | + + + | Home Phone | | + + + | Preferred Language | Unknown | + + + | Marital Status | | + + + | Judaism Affiliation | Unknown | + + + | Race | White | + + + | Ethnic Group | Not or | + + + Author + + + | Author | [facility] | | | and [place] | [...] [place] | | | | | [address] | | + + + + + Care Team Providers + +------+ + | Care Forest Worker Name | Role | Phone | + +------+ + | Harris Sauceda MD | PCP | | + +------+ + Encounter Details +--------+ + + + + | Date | Type | Department | Care Team | Description | +--------+ + + + + | 02/05/ | Orders Only | [facility] | [facility] | | | 2010 | | [facility] | [address] | | | | | CLINICAL LABORATORY | [address] [place], | | | | | [address] | [place] [address] | | | | | [place], [place] | [phone] | | | | | [address] | | | | | | [phone] | | | +--------+ + + + [...] | + +--------+ + + + | ABBIE KIRKLAND | Routin | 02/05/2011 | | Results for this | | | e | 2:30 PM | | procedure are in the | | | | PDT | | results section. | + +--------+ + + + documented in this encounter Results Abbie Kirkland (02/05/2011 2:30 PM PDT) + + | Specimen | + + | | + + + + + | Narrative | Performed At | + + + | Specimen Description THUMB LEFT SPEC E | EXTERNAL LAB | | Testing performed at | | | [facility];[place] [address] CULTURE | | | NO FUNGUS ISOLATED | | | Testing performed at [facility], [address] [place] [address], | | | [place] [address] REPORT STATUS | | | 03/01/2011 FINAL [...]
--- OUTSIDE RECORDS SUMMARY | ~2020-06-26 | XMS | Encounter Summary ---
Demographics + + + | Address | [address] | | | [place] [address] | + + + | Home Phone | | + + + | Preferred Language | Unknown | + + + | Marital Status | | + + + | Voodoo Affiliation | Unknown | + + + | Race | White | + + + | Ethnic Group | Not or | + + + Author + + + | Author | [facility] | | | and [place] | + + + | Organization | [facility] | | | [...] [place] | | | | | [address] | | + + + + + Care Team Providers + +------+ + | Care Pecan Grower Name | Role | Phone | + +------+ + | No, Unknownpcp | PCP | | + +------+ + Reason for Visit + + + | Reason | Comments | + + + | Back Pain | Low back pain, mainly left sided | + + + Encounter Details +--------+---------+ + + + | Date | Type | Department | Care Team | Description | +--------+---------+ + + + | 08/12/ | Office | [facility] | Elbert Estrada | Back pain of | | 2011 | Visit | PHYSIATRY [address] | [address] | thoracolumbar region | | | | [address] | [address] [place] | - left flank region | | | | [place] | [address] | (Primary Dx) | | | | [address] | | | | | | [phone] | | | +--------+---------+ + + + Social History + +-------+ +--------+ + | Tobacco Use | Types | Packs/Day | Years | Date | | | | | Used | | + +-------+ +--------+ + | Former Smoker | | | | Quit: 09/15/2001 | + +-------+ +--------+ + + + +---------+ + | Alcohol [...] + + + | Blood Pressure | 125/85 | 08/12/2012 12:24 PM | | | | | PST | | + + + + + | Pulse | 99 | 08/12/2012 12:24 PM | | | | | PST | [...] + + + + | Weight | 68 kg (150 lb) | 08/12/2012 12:24 PM | | | | | PST | | + + + + + | Height | 167.6 cm (5' 6") | 08/12/2012 12:24 PM | | | | | PST | | + + + + + | Body Mass Index | 24.21 | 08/12/2012 12:24 PM | | | | | PST | | + + + + + documented in this encounter Progress Elbert Pang MD - 08/12/2012 12:37 PM PST Subjective: Patient ID: Kevin Aleman is a 67 y.o. male. Chief Complaint Patient presents with Back Pain Low back pain, mainly left sided HPI The patient is being seen today at the request of Dr. Krueger for low back pain. The pain i s most often on the left side of the low back, quite far lateral, more in the flank region. His pain started approximately 5 years ago but has been increasingly worse over the last yea r. He had a stroke 7 years since then he has been having right sided weakness involving prim arily the right leg. This has caused him to have a very abnormal gait. He has been unable t o find anything that helps make the pain better. His pain is worsened with sitting and prolo nged walking. He has no complaints of numbness, tingling, loss of bowel or bladder. MRI of t he lumbar spine was reviewed today in detail with the patient. Past Medical History Diagnosis Date GERD (gastroesophageal reflux disease) Depression High cholesterol Stroke Hypertension Past Surgical History Procedure Date Stomach biopsy 2007 Thumb amputation 2009 Partial thumb amputation Family History Problem Relation Age of Onset Stroke Mother Stroke Father Cancer Father History Social History Marital Status: Spouse Name: N/A Number of Children: N/A Years of Education: N/A Social History Main Topics Smoking status: Former Smoker Quit date: 09/15/2001 Smokeless tobacco: None Alcohol Use: Yes Drug Use: No Sexually Active: None Other Topics Concern None Social History Narrative None Current Outpatient Prescriptions Medication Sig Dispense Refill amLODIPine (NORVASC) 5 mg tablet as directed citalopram (CELEXA) 20 mg tablet as directed losartan (COZAAR) 50 mg tablet as directed mycophenolate (CELLCEPT) 500 MG tablet as directed omeprazole ([facility] OMEPRAZOLE) 20 mg TBEC as directed simvastatin (ZOCOR) 40 mg tablet as directed WARFARIN SODIUM PO TABS as directed aspirin 325 mg tablet cyanocobalamin (VITAMIN B-12) 1,000 mcg/mL injection Cholecalciferol (TH VITAMIN D3) 2000 UNITS CAPS Allergies Allergen Reactions Acetaminophen Review of Systems Constitutional: Negative for fever, chills, activity change and unexpected weight change. HENT: Positive for trouble swallowing. Negative for hearing loss, neck pain and neck stiffn ess. Respiratory: Negative for cough, chest tightness, shortness of breath and wheezing. Cardiovascular: Negative for chest pain, palpitations and leg swelling. Gastrointestinal: Negative for nausea and vomiting. Genitourinary: Negative for difficulty urinating. Musculoskeletal: Positive for back pain. Negative for arthralgias. Neurological: Negative for dizziness, speech difficulty, weakness and numbness. Psychiatric/Behavioral: Negative for sleep disturbance and dysphoric mood. The patient is n ot nervous/anxious. All other systems reviewed and are negative. Objective: Physical Exam Nursing note and vitals reviewed. Constitutional: He is oriented to person, place, and time. He appears well-developed and we ll-nourished. HENT: Head: Normocephalic and atraumatic. Neck: No tracheal deviation present. Cardiovascular: Normal rate and regular rhythm. Pulmonary/Chest: Effort normal and breath sounds normal. No respiratory distress. Lymphadenopathy: He has no cervical adenopathy. Neurological: He is alert and oriented to person, place, and time. He has normal strength. No cranial nerve deficit or sensory deficit. He displays no Babinski's sign on the right siri e. He displays no Babinski's sign on the left side. Reflex Scores: Patellar reflexes are 2+ on the right side and 2+ on the left side. Achilles reflexes are 2+ on the right side and 2+ on the left side. Skin: Skin is warm, dry and intact. No abrasion, no bruising, no ecchymosis, no laceration and no rash noted. Psychiatric: He has a normal mood and affect. His speech is normal and behavior is normal. Thought content normal. Cognition and memory are normal. Musculoskeletal: Straight leg raise and slump-sit are negative. Jorge's maneuver and im pingement testing were negative for any groin pain. There was no tenderness to palpation o jae the greater trochanters or sacral sulci. The patient localized the majority of the pain to the left flank region. He was not tender to percussion or palpation in that region. Lum bar facet loading was negative. Strength testing showed 5/5 strength throughout the left lo wer extremity and 4/5 strength proximally on the right and slightly weaker distally with an apparent foot drop. He has a very abnormal gait with what appears to be a steppage gait . T he patient was not able to heel and toe walk due to the weakness and some balance issues. T here was no redness, effusion, warmth or joint line tenderness in the knees or ankles. Review of Imagin. MARROW SIGNAL ABNORMALITIES AT L2-3 SUGGESTING INSTABILITY AT THAT LEVEL. ON THIS SUPINE STUDY, THE RETROLISTHESIS OF L3 ON L4 IS MINIMAL. THESE CHANGES ARE PRESENT DESPITE ONLY M [id number] FACET DEGENERATIVE CHANGE, GREATEST AT L4-5. 2. MULTILEVEL [id number] DEGENERATIVE DISK CHANGES, MOST NOTABLE AT L4-5. NO AREAS OF SIGNIFICANT NEURAL ENCROACHMENT ARE SEEN. Assessment: 1. Left flank pain of unclear etiology. It appears to be more of a muscle issue and may b e related to his abnormal gait. He does have degenerative changes of the lumbar spine but h is pain is so far lateral it does not appear to be consistent with facet pain and the area o f pain also does not seen to correlate with any expected radiculopathy. Plan: 1. I do no believe that the patient is a good candidate for interventional proedures and no injections were offered. 2. The patient was offered a prescription for Ultram and he did wish to try that. Overal l he is not usually a fan of medications. 3. He was reminded that he should use his cane daily to try and normalize his gait. I am h oping that doing so will help reduce his pain. 4. The patient will follow-up with me as needed. documented in this encounter Miscellaneous Notes Miscellaneous - GUSTAVO MCADAMS - 08/11/2012 12:00 AM PST documented in this encounter Plan of Treatment Not on filedocumented as of this encounter Visit Diagnoses + + | Diagnosis | + + | Back pain of thoracolumbar region - left flank region - Primary Backache, unspecified | + + documented in this encounter
--- OUTSIDE RECORDS SUMMARY | ~2020-06-26 | XMS | Encounter Summary ---
Demographics + + + | Address | [address] | | | [place] [address] | + + + | Home Phone | | + + + | Preferred Language | Unknown | + + + | Marital Status | | + + + | Buddhist Affiliation | Unknown | + + + | Race | White | + + + | Ethnic Group | Not or | + + + Author + + + | Author | [facility] | | | and [place] | + + + | Organization | [facility] | | [...] [place] | | | | | [address] | | + + + + + Care Team Providers + +------+ + | Care Corsetier Name | Role | Phone | + +------+ + | Almas Licea MD | PCP | | + +------+ + Reason for Visit +--------+--------+ + | Reason | Onset | Comments | | | Date | | +--------+--------+ + | Other | 04/30/ | ready to schedule surgery | | | 2015 | | +--------+--------+ + Encounter Details +--------+ + + + + | Date | Type | Department | Care Team | Description | +--------+ + + + + | 04/30/ | [facility] Wililam [facility] | Other (ready to | | 2015 | | NEUROSURGERY [address] | [address] | schedule surgery) | | | | [facility] [address] | [place] [address] | | | | | [place] | [phone] | | | | | [address] | | | | | | [phone] | | | +--------+ + + + [...] Notes Telephone Encounter - Imelda Marcos - 05/01/2016 1:11 PM PDTAuthorization [facility] - 05/01/2016 9:32 AM PDTNo surprises are planned. William Garcia elephone Encounter - Imelda Moreira - 04/30/2016 3:30 PM PDTKevin calls to let Dr. Garcia know that he is ready to schedule surgery. Note in plan states that an L2-5 fusion with anterior and posterior approach was discussed. L2-3, L3-4 LAIF, L4-5 TLIF-please confirm procedure information. Also, Kevin would like this submitted to Medicare/[facility] prior to scheduling. He does not "want any surprises". documented in this encounter Plan of Treatment Not on filedocumented as of this encounter Visit Diagnoses Not on filedocumented in this encounter
--- OUTSIDE RECORDS SUMMARY | ~2020-06-26 | XMS | Encounter Summary ---
Demographics + + + | Address | [address] | | | [place] [address] | + + + | Home Phone | | + + + | Preferred Language | Unknown | + + + | Marital Status | | + + + | Latter-Day Affiliation | Unknown | + + + | Race | White | + + + | Ethnic Group | Not or | + + + Author + + + | Author | [facility] | | | and [place] [...] [place] | | | | | [address] | | + + + + + Care Team Providers + +------+ + | Care Cable Splicer Apprentice Name | Role | Phone | + +------+ + | Almas Licea MD | PCP | | + +------+ + Encounter Details +--------+ + + + + | Date | Type | Department | Care Team | Description | +--------+ + + + + | 07/29/ | Hospital | [facility] | Matt Sandoval | Lumbar | | 2016 | Encounter | MED CTR XRAY [address] | [address] | radiculopathy; S/P | | | | [place] | [address] [place], [place] | lumbar fusion | | | | [place] [address] | [address] | | | | | [phone] | | | +--------+ + + + [...] | XR LUMBAR SPINE 2 OR | Routin | 07/29/2016 | Lumbar | Results for this | | 3 VW | e | 2:35 PM | radiculopathy S/P | procedure are in the | | | | PST | lumbar fusion | results section. | + +--------+ + [...] views of the lumbar spine COMPARISON: | [facility] | | 07/08/2016. FINDINGS: Status post L2-L5 PLIF. Stable mild | [facility] | | superior L5 endplate subsidence. Surgical [...] | + + + + + | [address] | [address] | [place] | [phone] | | [facility] | | [address] | | | - IMAGING | | | | + + + + + documented in this encounter Visit Diagnoses + + | Diagnosis | + + | Lumbar radiculopathy Thoracic or lumbosacral neuritis or radiculitis, unspecified | + + | S/P lumbar fusion Arthrodesis status | + + documented in this encounter"
--- OUTSIDE RECORDS SUMMARY | ~2020-06-26 | XMS | Encounter Summary ---
Demographics + + + | Address | [address] | | | [place] [address] | + + + | Home Phone | | + + + | Preferred Language | Unknown | + + + | Marital Status | | + + + | Synagogue Affiliation | Unknown | + + + | Race | White | + + + | Ethnic Group | Not or | + + + Author + + + | Author | [facility] | | | and [place] | + + + | Organization | [facility] | | [...] [place] | | | | | [address] | | + + + + + Care Team Providers + +------+ + | Care Pharmacy General Manager Name | Role | Phone | + +------+ + | Almas Licea MD | PCP | | + +------+ + Reason for Visit +--------+--------+ + | Reason | Onset | Comments | | | Date | | +--------+--------+ + | Other | 06/21/ | Pre op meds to stop | | | 2015 | | +--------+--------+ + Encounter Details +--------+ + + + + | Date | Type | Department | Care Team | Description | +--------+ + + + + | 06/21/ | Telephone | [facility] [place] | William Garcia MD | Other (Pre op meds | | 2016 | | NEUROSURGERY [address] | [address] | to stop) | | | | [facility] [address] | [place] [address] | | | | | [address] | [phone] | | | | | [address] | | | | | | [phone] | | | +--------+ + + + [...] Telephone Encounter - Christine Butts RN - 06/21/2016 11:06 AM PDTPatient in office for pr e op appointment. Patient advised at this time to stop: Aspirin, Coumadin (7 days prior to s urgery); Losartan (Hold morning of surgery). Patient verbalized understanding. All questions answered at this time. Tdocumented in this encounter Plan of Treatment Not on filedocumented as of this encounter Visit Diagnoses Not on filedocumented in this encounter"
--- OUTSIDE RECORDS SUMMARY | ~2020-06-26 | XMS | Encounter Summary ---
Demographics + + + | Address | [address] | | | [place] [address] | + + + | Home Phone [...] | Author | [facility] [...] [place] | | | | | [address] | | + + + + + Care Team Providers + +------+ + | Care Magazine Designer Name | Role | Phone | + +------+ + | Almas Licea MD | PCP | | + +------+ + Reason for Visit + +--------+ + | Reason | Onset | Comments | | | Date | | + +--------+ + | Imaging Only | 10/08/ | | | | 2016 | | + +--------+ + Encounter Details +--------+ + + + + | Date | Type | Department | Care Team | Description | +--------+ + + + + | 10/08/ | Telephone | [facility] [place] | William Garcia MD | Imaging Only | | 2017 | | NEUROSURGERY [address] | [address] | | | | | [address] | [place] [address] | | | | | [address] | [phone] | | | | | [address] | | | | | | [phone] | | | +--------+ + + + [...] Notes Telephone Encounter - Imelda Marcos - 10/08/2016 1:16 PM PSTImaging order faxed to [facility]. Detailed voicemail message left for Kevin. Electronically signed by Imelda Marcos at 0 10/08/2016 1:18 PM PSTTelephone Encounter - Imelda Marcos - 10/08/2016 12:07 PM PSTImag ing order pending RN signature. 12: 08 PM PSTTelephone Encounter - Tanna Diaz - 10/08/2016 11:27 AM PSTPatient called i n stating that he has an appt with Dr. Garcia on at 1000am, but says that he is suppose d to be having x-rays done prior to the appt. He would like for the orders to be sent to Jerry resendez. Please advise documented in this encounter Plan of Treatment Not on filedocumented as of this encounter Visit Diagnoses Not on filedocumented in this encounter"
--- OUTSIDE RECORDS SUMMARY | ~2020-06-26 | XMS | Encounter Summary ---
Demographics + + + | Address | [address] | | | [place] [address] | + + + | Home Phone | | + + + | Preferred Language | Unknown | + + + | Marital Status | | + + + | Holiness Affiliation | Unknown | + + + | Race | White | + + + | Ethnic Group | Not or | + + + Author + + + | Author | [facility] | | | and [place] | + + + | Organization | [facility] | | | [...] [place] | | | | | [address] | | + + + + + Care Team Providers + +------+ + | Care Insurance Sales Representative Name | Role | Phone | + +------+ + | Harris Sauceda MD | PCP | | + +------+ + Reason for Referral Service/Procedure (Routine) +--------+--------+ + + + + | Status | Reason | Specialty | Diagnoses / | Referred By | Referred To | | | | | Procedures | Contact | Contact | +--------+--------+ + + + + | Closed | | DME | Diagnoses | Leach, | | | | | | Equinus | Gerardo [place], | | | | | | contracture | [address] | | | | | | of ankle | [address] | | | | | | Right ankle | [place], | | | | | | pain, | [place] [address] | | | | | | unspecified | Phone: | | | | | | chronicity | [phone] | | | | | | Acquired | Fax: | | | | | | deformity of | [phone] | | | | | | right foot | | | | | | | Procedures | | | | | | | DME: | | | | | | | Wheelchair | | | +--------+--------+ + + + + Encounter Details +--------+ + + + + | Date | Type | Department | Care Team | Description | +--------+ + + + + | 05/21/ | Orders Only | [facility] [place] | Gerardo Leach | Equinus contracture | | 2019 | | ORTHOPEDIC SURGERY | MD Gumaro [address] | of ankle (Primary | | | | [address] [place] | [place], [place] | Dx); Right ankle | | | | [place], [place] | [address] | pain, unspecified | | | | [address] | | chronicity; Acquired | | | | [phone] | | deformity of right | | [...] of this encounter Plan of Treatment + +------+--------+ + + | Name | Type | Priori | Associated Diagnoses | Order Schedule | | | | ty | | | + +------+--------+ + + | DME: Wheelchair | DME | Routin | Equinus | Ordered: 05/21/2019 | | | | e | contracture of ankle | | | | | | Right ankle pain, | | | | | | unspecified | | | | | | chronicity Acquired | | | | | | deformity of right | | | | | | foot | | + +------+--------+ + + documented as of this encounter Visit Diagnoses + + | Diagnosis | + + | Equinus contracture of ankle - Primary | + + | Right ankle pain, unspecified chronicity | + + | Acquired deformity of right foot | + + documented in this encounter"
--- OUTSIDE RECORDS SUMMARY | ~2020-06-26 | XMS | Encounter Summary ---
Demographics + + + | Address | [address] | | | [place] [address] | + + + | Home Phone | | + + + | Preferred Language | Unknown | + + + | Marital Status | | + + + | Bahai Affiliation | Unknown | + + + | Race | White | + + + | Ethnic Group | Not or | + + + Author + + + | Author | [facility] | | | and [place] | + + + | Organization | [facility] | | | [...] [place] | | | | | [address] | | + + + + + Care Team Providers + +------+ + | Care Nurse Gynecology Name | Role | Phone | + +------+ + | Harris Sauceda MD | PCP | | + +------+ + Encounter Details +--------+---------+ + + + | Date | Type | Department | Care Team | Description | +--------+---------+ + + + | 05/19/ | Surgery | [facility] | Hany Gerrado | Right foot | | 2019 | | MED CTR OR INTRA OP | MD Gumaro [address] | gastrocnemius | | | | [address] | [place], [place] | release,and release | | | | [place], [place] | [address] | of flexor tendons, | | | | [address] | | and release hallucis | | | | [phone] | | adductor, and | | | | | | pinning of right | | | | | | toes | +--------+---------+ + + + Social History [...] + + + | Blood Pressure | 140/85 | 05/19/2019 11:55 AM | | | | | PDT | | + + + + + | Pulse | 89 | 05/19/2019 11:55 AM | | | | | PDT | | + + + + + | Temperature | 36.3 C (97.3 F) | 05/19/2019 11:52 AM | | | | | PDT | | + + + + + | Respiratory Rate | 20 | 05/19/2019 11:55 AM | | | | | PDT | | + + + + + | Oxygen Saturation | 94% | 05/19/2019 11:55 AM | | | | | PDT [...] 05/19/2019Please keep appointment in [facility] as already scheduled. Remove the bandages [...] mg of acetaminophen (Tylenol) per day. Hydrocodone-acetaminophen ([place] ) and Oxycodone-acetaminophen (Percocet) have 325 mg acetaminophen per tablet. Regular stren [facility] acetaminophen is 325 mg per tablet. 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/2015 Facial weakness late Cvd effects Foot drop, right foot GERD (gastroesophageal reflux disease) Hiatal hernia High cholesterol History of blood clots HLD (hyperlipidemia) Hypercholesterolemia Idiopathic retroperitoneal fibrosis Involuntary movements Lumbago Other muscle spasm Poor circulation RLS (restless legs syndrome) Spastic hemiplegia affecting right dominant side (HCC) Stroke ([facility]) right sided weakness Trochanteric bursitis of right [...] [facility] biopsy SKIN CANCER EXCISION 2014 cancer spots THUMB AMPUTATION Left 2010 Partial thumb amputation [...] Management: D ME wheelchair order faxed to [facility]. This wheelchair was supposed to be delivered to [facility] bef ore Kevin discharged home. He was discharged home before wheelchair was delivered. I call ed and told [facility] to deliver to his home. Bob ROJO was notified. Electronically signed by: Angie Barron RN 05/19/2019 16:14 lan of Care - Abi Drsicoll PT - 05/19/2019 2:47 PM PDTFormatting of this note might be different from the o riginal. [facility] Physical Therapy OPIB Plan of Care Treatment, [...] capacity/endurance, gait, locomotion, and balance, ergonomics and body specialist s, functional endurance/activity tolerance Physical Therapy Discharge [...] Device: none Supine to Sit, Level of [place]: modified independent Sit to Supine, Level of [place]: modified independent Safety Issues: decreased use of legs for bridging/pushing, decreased use of arms for pushin g/pulling Transfers verbal cues for correct positining of w/c and SPT technique . Return demo with spouse. Bed-Chair, Level of [place]: contact guard assist, verbal cues required Chair-Bed, Level of [place]: contact guard assist, verbal cues required Ltv-Dmbky-Vjm, Assistive Device: 2 wheeled walker (FWW), none Safety Issues: balance decreased during turns, step length decreased, weight-shifting abili ty decreased Impairments: strength decreased, impaired balance, decreased flexibility Gait Unsteady, cues for NWB on (R) LE. c/o feeling light headed . Level of [place]: contact guard assist Assistive Device: 2 wheeled walker (FWW) Distance (feet): 5' Gait Deviations: hiram decreased, rrr-zi-oxgsc clearance decreased, limb motion velocity decreased, step length decreased, weight-shifting ability decreased Impairments: impaired balance, strength decreased, decreased flexibility Stairs N/T, unsafe d/t NWB on (R) foot Wheelchair Mobility need elevating leg rest to keep (R) leg elevated to reduce swelling. Type: standard Cushion: none Surface: indoor, level Speed: slow Level of [place]: modified independent Propulsion Technique: bilateral UE's Components: [...] STG Review Date 05/19/19 at 05/19/2019 1447 Fyodwu-Don-Rmujbj Goal Most Recent Value STG Status new, met at 05/19/2019 1447 STG [place] Level modified independent at 05/19/2019 1447 Uda-Mqbge-Qfs Goal Most Recent Value STG Status new, met at 05/19/2019 1447 STG [place] Level contact guard assist at 05/19/2019 1447 [...] late effect of cerebrovascular disease, unspecified c erebrovascular disease type (HCC) [I69.951] p Note - Sara Leach MD - 05/19/2019 12:03 [address]PROVID[address] [address] OPERATIVE REPORT GERARDO LEACH MD Patient: KEVIN OLVERA Admitting: GERARDO LEACH MR #: [id number] LOC: PT TYPE: Adm Date: 05/19/2019 : 1945 DATE OF SURGERY: 05/19/2019. OPERATING SURGEON: Gerardo Leach MD ER MEDICAL TECHNICIAN: Sebastian Bill PA-C ANESTHESIOLOGIST: Joe Lewis MD [...] Transcribed on 05/19/2019 12:43:24 by in job# [id number] Confirmation #: [id number] p Note - Aurorabenny eduardo, Gerardo Naik MD - 05/19/2019 11:54 AM PDTOp note dictation # [id number]. documented in this encounter Plan of Treatment [...] +---+ + documented in this encounter Results ML Norton-Polo Stats No Charge (05/19/2019 11:01 AM PDT) [...] (H) | 20 - 31 mmol/L | [facility] | | | | | | [facility]. [...] | 1.23 | 0.70 - 1.30 | [facility] | | | | | mg/dL | [facility] | | | | | | MEDICAL | | | | | | CENTER - | | | | | | LABORATORY | | + + + + + + | eGFR, | 58 (L)Comment: | >=60 | [facility] | | | non- | GLOMERULAR FILTRATION | mL/min/1.73m2 | [facility] | | | [place] | RATE,ESTIMATED | | MEDICAL | | | | mL/min/1.70f8Lorq than | | CENTER - | | [...] + + | [facility] | [address] | [place] | [phone] | | [facility] | | [address] | | | - LABORATORY | | | | + + + + + documented in this encounter Visit Diagnoses + + | Diagnosis | + + | 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 [...] One week or | | | longer, cexkaf-ugu-eybmg use of | | | at least [...] One week or longer, | | | syipuh-jut-aubiv use of at least | | | [...] | | | + +---+ + +-------+ +--------+---+ + | ropivacaine (NAROPIN) 5 mg/mL | Given | 05/19/20 | 10 mLs | | Surgical | | (0.5%) injection PRN, Starting | | 19 10:32 | | | Site | | 05/19/19 at 1032, Intra-op | | AM PDT | | | | + +-------+ +--------+---+ + +---+---+ | | | +---+---+ documented in this encounter
--- OUTSIDE RECORDS SUMMARY | ~2020-06-26 | XMS | Encounter Summary ---
Demographics + + + | Address | [address] | | | [place] [address] | + + + | Home Phone | | + + + | Preferred Language | Unknown | + + + | Marital Status | | + + + | Denominational Affiliation | Unknown | + + + | Race | White | + + + | Ethnic Group | Not or | + + + Author + + + | Author | [facility] | | | and [place] | + + + | Organization | [facility] | | [...] [place] | | | | | [address] | | + + + + + Care Team Providers + +------+ + | Care Business Management Consultant Name | Role | Phone | + +------+ + | No, Unknownpcp | PCP | | + +------+ + Reason for Referral Physical Medicine (Routine) +--------+ + + + + + | Status | Reason | Specialty | Diagnoses / | Referred By | Referred To | | | | | Procedures | Contact | Contact | +--------+ + + + + + | Closed | Specialty | Physical | Diagnoses | Nicole, | [facility] | | | Services | Therapy | Back muscle | Almas | Pt Acute | | | Required | | spasm SI | MD Earnest | [address] | | | | | (sacroiliac) | [address] | [place], | | | | | joint | [address] | [place] | | | | | dysfunction | [place], | [address] | | | | | Facet | [place] [address] | Phone: | | | | | syndrome | Phone: | [phone] | | | | | Enthesopathy | [phone] | Fax: | | | | | of pelvis | Fax: | [phone] | | | | | | [phone] | | +--------+ + + + + + Reason for Visit + + + | Reason | Comments | + + + | Back Pain | | + + + Encounter Details +--------+---------+ + + + | Date | Type | Department | Care Team | Description | +--------+---------+ + + + | 11/02/ | Office | [facility] | Almas Rivera | Back muscle spasm | | 2012 | Visit | REHABILITATION | MD Earnest [address] | (Primary Dx); SI | | | | MEDICINE [address] | [address] [place] | (sacroiliac) joint | | | | [address] [place] | [place] [address] | dysfunction; Facet | | | | [place] [address] | [phone] | syndrome; | | | | [phone] | | Enthesopathy of | | | | | | pelvis | +--------+---------+ + + + Social History [...] +---------+ + + | Blood Pressure | 112/80 | 11/02/2012 1:43 PM | | | | | PST | | + +---------+ + + | Pulse | 80 | 11/02/2012 1:43 PM | | | | | PST | | + +---------+ + + | Temperature | - | - | | + +---------+ + + | Respiratory Rate | 14 | 11/02/2012 1:43 PM | | | | | PST | | + +---------+ + + | [...] +---------+ + + documented in this encounter Patient Instructions Patient Instructions Almas Rivera MD - 11/02/2012 2:[address] Can's heel protector in left shoe. Continue using as long as it doesn't bother your back. 2. Heat in the morning: shower ok 3. Cold pack to left iliac crest, 20 minutes daily to reduce swelling and spasm.Electronica lly signed by Almas Rivera MD at 11/02/2012 2:32 PM PST documented in this encounter Progress Notes Almas Rivera MD - 11/02/2012 2:52 PM PSTI last saw the patient April 17, 2012 . Since then he has seen Dr. Krueger, the neurosurgeon, in [place] who recommended conservativ e treatment. His note from July 27, 2012 was reviewed at. He recommended anti-inflamma tory patches as well as consideration of injections at. Thus the patient saw next Dr. Mila olivas. Dr. Estrada note was also reviewed and he indicated he thought it was a muscle pr oblem and not a facet problem and thus injections would probably not help. He gave the sergei ent all tramp and the patient reported it did not help. Thus he is now coming to me regardi ng this problem and I ended up spending over 25 minutes face to face with the patient since it appears to be quite complex, with over half in education, problem solving, and counseling regarding this problem. He notes he did tried the baclofen at night and he tolerated it but it was not helpful. He has not tried Flexeril and thus I discussed that it is much longer acting than baclofen and can potentially caused urinary retention, but we will start at a low dose and he'll monitor how it is affecting him in this way as well as for his muscle spasm. The pain also interru pted sleep, but wakes him up when he rolls over especially. Thus hopefully the Flexeril david l help with sleep. He is on Coumadin and thus we are avoiding anti-inflammatories. He has been recommended to try Flector patches in the past, but did not want to due to the expense. He has not used h eat in the morning or cold in the afternoon and so I educated him about using that. Plus I discussed using cortisone and ultrasound to help with this problem in place of the anti-infl ammatories or patches. He has not had physical therapy sit working with the right ankle con tracture and serial casting. Botox was done twice with some benefit. However he still has to circumduct his right leg with gait. Thus I discussed his gait is probably a major cause of his left sided pain and discussed ways to help correct to that such as a lift in the left shoe and he is willing to try that. He notes when he laid on the couch on his side for 2 hours he got severe left sided back pa in, however he points to the quadratus lumborum rather than the low back when asked where hi s back pain was. I showed him a models about that as well as how that affects the SI joint. The pain was up to 8-9 on a scale of 10 and lasted 2 weeks. Low back pain presently 5 on a scale of 10, but again it is actually in the quadratus lumbo rum. No radiation into the lower extremities, no numbness and tingling in the legs, no mauro ge in strength in the legs, right is still somewhat weak. Physical exam He is in no distress, but holds the right leg straight. On standing he does circumduct the right leg somewhat and has to bend to the left to get it to swing through. Back flexion 70 , extension 10 without pain, lateral bending 10 bilaterally. Bending to the left caus es the left iliac crest pain. On palpation he has pain that appears to be where the quadratus lumborum attaches to the il iac crest laterally. His right SI joint is very tight and the left hip appears about one jimenez lf an inch low. However because of the increased tone on his right leg and side, it is more of a twisting and perhaps a true lowering of the left hip. Impression: Left quadratus lumborum spasm and enthesopathy where it inserts onto the iliac crest latera lly. Much of this is mechanical and do to his stroke with the right ankle contracture and c ircumduction gait. I asked him to put a lift in the left heel, use heat in the morning, col d in the afternoon, and go to physical therapy to see if we could help correct this gait pro blem and secondary spasm. Mechanical back pain with L3-5 facet syndrome. Today he did not have any significant facet problems. CVA with right hemiparesis and mild to moderate spasticity and right ankle contracture. Th e contracture is improved but he still circumducts his right leg, thus we need to work furth er on his gait. He is on Coumadin for his stroke prevention and thus we cannot give anti-in flammatories. Retro-fibrosis: Discussed previously Decreased mood, increased mcv, B12 deficiency: Noted Dr. Licea is working on these problems and some related to increased alcohol intake. Plan: Cc to Erik Matamoros, physical therapy. He will do cortisone with ultrasound, SI treatments, an d lift adjustments with gait training. Lift in the left heel Heat in the morning and cold in the afternoon to affected area Hold on Flector patches as the patient does not want to purchase them Hold on facet injections as that does not appear to be the main problem presently. Flexeril 5 mg at bedtime, up to 20 mg until he is having less muscle spasm in the morning Followup in 3 weeks, the patient will reschedule if he cannot get into see Erik Matamoros by the n Cc: Dr. Licea and [facility]amor[facility], PT documented hammad calderón this encounter Plan of Treatment + + +--------+ + + | Name | Type | Priori | Associated Diagnoses | Order Schedule | | | | ty | | | + + +--------+ + + | Ambulatory referral | Outpatient | Routin | Back muscle spasm | Ordered: 11/02/2012 | | to Physical Therapy | Referral | e | SI (sacroiliac) | | | | | | joint dysfunction | | | | | | Facet syndrome | | | | | | Enthesopathy of | | | | | | pelvis | | + + +--------+ + + documented as of this encounter Visit Diagnoses + + | Diagnosis | + + | Back muscle spasm - Primary Other symptoms referable to back | + + | SI (sacroiliac) joint dysfunction Disorders of sacrum | + + | Facet syndrome Other symptoms referable to back | + + | Enthesopathy of pelvis Enthesopathy of hip region | + + documented in this encounter"
--- OUTSIDE RECORDS SUMMARY | ~2020-06-26 | XMS | Encounter Summary ---
Demographics + + + | Address | [address] | | | [place] [address] | + + + | Home Phone [...] + + | Author | [facility] | | | and [place] | + + + | Organization | [facility] | | | [...] [place] | | | | | [address] | | + + + + + Care Team Providers + +------+ + | Care Towboat Pilot Name | Role | Phone | + +------+ + PCP | Unavailable | + +------+ + Encounter Details +--------+ + + + + | Date | Type | Department | Care Team | Description | +--------+ + + + + | 06/21/ | [facility] | [facility] | | | | 2002 | Encounter | MED CTR XRAY [address] | | | | | | [place] | | | | | | [place] [address] | | | | | | [phone] | | | +--------+ + + + [...]
--- OUTSIDE RECORDS SUMMARY | ~2020-06-26 | XMS | Encounter Summary ---
Demographics + + + | Address | [address] | | | [place] [address] | + + + | Home Phone | | + + + | Preferred Language | Unknown | + + + | Marital Status | | + + + | Restorationist Affiliation | Unknown | + + + | Race | White | + + + | Ethnic Group | Not or | + + + Author + + + | Author | [facility] | | | and [place] | + + + | Organization | [facility] | | [...] [place] | | | | | [address] | | + + + + + Care Team Providers + +------+ + | Care Sheet Metal Layout Worker Name | Role | Phone | + +------+ + | Zainab Franco MD | PCP | | + +------+ + Reason for Visit + +--------+ + | Reason | Onset | Comments | | | Date | | + +--------+ + | Surgery Appointment | 01/11/ | | | | 2018 | | + +--------+ + Encounter Details +--------+ + + + + | Date | Type | Department | Care Team | Description | +--------+ + + + + | 01/11/ | Telephone | [facility] | Gerardo Leach | Surgery Appointment | | 2019 | | ORTHOPEDIC SURGERY | MD Gumaro [address] | | | | | [address] | [place] | | | | | [place] | [address] | | | | | [address] | | | | | | [phone] | | | +--------+ + + + [...] Miscellaneous Notes Telephone Encounter - Michelle Peck Cashier Ticket Selling - 01/11/2019 3:00 PM PDTDos 03/10/19 elephon e Encounter - Aleena Mcpherson - 01/11/2019 11:05 AM PDTPatient called returning a phone call regarding setting up a surgery date. Patient stated he would be available after 1:00PM . Please advise, thank you. documented in this encounter Plan of Treatment Not on filedocumented as of this encounter Visit Diagnoses Not on filedocumented in this encounter"
--- OUTSIDE RECORDS SUMMARY | ~2020-06-26 | XMS | Encounter Summary ---
Demographics + + + | Address | [address] | | | [place] [address] | + + + | Home Phone | | + + + | Preferred Language | Unknown | + + + | Marital Status | | + + + | Rastafari Affiliation | Unknown | + + + | Race | White | + + + | Ethnic Group | Not or | + + + Author + + + | Author | [facility] | | | and [place] | + + + | Organization | [facility] | | | [...] [place] | | | | | [address] | | + + + + + Care Team Providers + +------+ + | Care Clamper Name | Role | Phone | + +------+ + | Harris Sauceda MD | PCP | | + +------+ + Reason for Visit +--------+--------+ + | Reason | Onset | Comments | | | Date | | +--------+--------+ + | Wound | 05/26/ | | | | 2019 | | +--------+--------+ + Encounter Details +--------+ + + + + | Date | Type | Department | Care Team | Description | +--------+ + + + + | 05/26/ | Telephone | [facility] | Sebastian Bill | Wound | | 2019 | | ORTHOPEDIC SURGERY | [address] | | | | | [address] | [facility] | | | | | [place] | [place] [address] | | | | | [address] | [phone] | | | | | [phone] | | | +--------+ + + + [...] Miscellaneous Notes Telephone Encounter - Michelle Peck Medical Assistant - 05/26/2019 11:48 AM PDTLate entry. Patient called 05/25/19 at 930 am Patient called yesterday to cancel his appointment due to patient having groin pain. Patien t believes he has a hernia. And that is why he going to the ER. Patient didn't want to come in this week due to wanting to wait until his next scheduled visit. Patient was advised by renetta bill to leave the bandages placed since the its sterile and to avoid infection. Patient verbalized understanding and will contact us if he has any further questions. documented in this encounter Plan of Treatment Not on filedocumented as of this encounter Visit Diagnoses Not on filedocumented in this encounter"
--- OUTSIDE RECORDS SUMMARY | ~2020-06-26 | XMS | Encounter Summary ---
Demographics + + + | Address | [address] | | | [place] [address] | + + + | Home Phone | | + + + | Preferred Language | Unknown | + + + | Marital Status | | + + + | Voodoo Affiliation | Unknown | + + + | Race | White | + + + | Ethnic Group | Not or | + + + Author + + + | Author | [facility] | + + + | Organization | [facility] | + + + | Address | Unknown | + + + | Phone | Unavailable | + + + Support + + + + + | Name | Relationship | Address | Phone | + + + + + | eDlilah Aleman | ECON | [address] | | | | | [place] | | | | | [address] | | + + + + + Care Team Providers + +------+ + | Care Roofer Name | Role | Phone | + +------+ + | Almas Licea MD | PCP | | + +------+ + Reason for Visit + + + | Reason | Comments | + + + | Follow-up visit | Idiopathic Retroperitoneal Fibrosis | + + + Encounter Details +--------+---------+ + + + | Date | Type | Department | Care Team | Description | +--------+---------+ + + + | 03/06/ | Office | Rheumatology at | Maximo Benítez MD | Idiopathic | | 2008 | Visit | [facility] | [address] | Retroperitoneal | | | | [address] | [address] [place], | Fibrosis (Primary | | | | [facility] | [place] [address] | Dx) | | | | [facility], [address] | [phone] | | | | | [place], [place] | | | | | | [address] | | | | | | [phone] | | | +--------+---------+ + + + [...] + documented in this encounter Progress Notes Maximo Benítez MD - 03/06/2009 3:22 PM PDT Progress Note Clinic: Rheumatology Reason for follow-up: Chief Complaint Patient presents with Follow-up visit Idiopathic Retroperitoneal Fibrosis 63 yo man comes for follow up for idiopathic retroperitoneal fibrosis. He has been on predn isone since July 2008 and has had an excellent response. His prednisone has been tapered down to 5 mg a day. He has started to take methotrexate 8 weeks ago and he is no 15 mg a we ek. He experiences extreme fatigue but no GI symptoms. He drinks red wine on regular basis, almost once a day. He has not had blood test yet. He complains of lower back pain that he states it's different from retroperitoneal fibrosis . The back pain appears to be mechanical pain that he has had for long time. Past Medical History: Past Medical History Diagnosis Date Unspecified Essential Hypertension Unspecified Cerebral Artery Occlusion with Cerebral Infarction Medications: Current outpatient prescriptions Medication Sig aspirin 325 mg Oral Tablet take 1 tablet by oral route once daily baclofen 10 mg Oral Tablet Take 10 mg by mouth once daily. Calcium Carbonate-Vitamin D2 (CALCIUM + D) 600-200 mg-unit Oral Tablet Take 2 Tabs by m outh two times daily. CELEBREX 200 mg Oral Capsule take 1 capsule (200 mg) by oral route 2 times per day as n eeded COZAAR 50 mg Oral Tablet take 1 tablet (50 mg) by oral route once daily folic acid 1 mg Oral Tablet Take 1 Tab by mouth once daily. furosemide 20 mg Oral Tablet Take 20 mg by mouth once daily. LEXAPRO 10 mg Oral Tablet take 1 tablet (10 mg) by oral route once daily methotrexate 2.5 mg Oral Tablet Take by mouth. Take 3 tablets, once a week for two week s, then increase to 5 tablets, once a week for two weeks, then increased to 6 tablets, once a week and continue on this dose. NORVASC 2.5 mg Oral Tablet take 1 tablet (2.5 mg) by oral route once daily predniSONE 10 mg Oral Tablet Take 5 mg by mouth once. PREVACID 30 mg Oral Capsule, Delayed Release(E.C.) take 1 capsule (30 mg) by oral route once daily before a meal simvastatin 40 mg Oral Tablet Take 40 mg by mouth once daily in the evening. warfarin 5 mg Oral Tablet take 1 tablet by oral route 6 days a week and 1/2 tablet by o ral route on the 7th day Allergies: Review of patient's allergies indicates no known allergies. Social History: Kevin reports that he has never used tobacco. He reports that he drinks alcohol. He reports that he does not currently use illicit drugs. Family History: family history includes Cancer in his father and Stroke in his father. Physical Exam BP 128/80 | Pulse 86 | Wt 73.483 kg (162 lb) | SpO2 97% Pain Score: 0 Gen: Well nourished, well developed, in NAD HEENT: unremarkable Neck: no lymphadenopathy, FROM Lungs: clear to ausculations bilaterally CVS: S1, S2 RRR, no murmurs, rubs or gallops Abd: normal Ext: No clubbing, cyanosis, or edema M/S: no synovitis, FROM. 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 Skin: normal Neuro: normal Labs: Lab Results Component Value Date/Time WBC 6.9 6/22/09 12:15 PM HB 16.1 03/06/09 12:15 PM HCT 47.3 03/06/09 12:15 PM PLT 229 03/06/09 12:15 PM MCV 99.3 03/06/09 12:15 PM RDW 13.9 03/06/09 12:15 PM Lab Results Component Value Date/Time NA 139 03/06/09 12:15 PM K 4.5 03/06/09 12:15 PM CL 106 03/06/09 12:15 PM BICARB 23 03/06/09 12:15 PM BUN 9 03/06/09 12:15 PM CR 1.09 03/06/09 12:15 PM GLU 104 03/06/09 12:15 PM CA 9.0 03/06/09 12:15 PM AST 24 03/06/09 12:15 PM ALT 17 03/06/09 12:15 PM AP 70 03/06/09 12:15 PM TBILI 0.7 03/06/09 12:15 PM TP 6.7 03/06/09 12:15 PM ALB 3.6 03/06/09 12:15 PM Lab Results Component Value Date/Time ESR 3 03/06/09 12:15 PM Impression: This is a 63 y.o. male here for follow up of idiopathic retroperitoneal fibros is. Response to prednisone well and methotrexate is added to spare prednisone. Patient is a regular alcohol drinker that may increase methotrexate hepatic toxicity. Recommendations: 1. Lab for CBC and diff, liver function tests to monitor methotrexate to[place] city. 2. CRP and ESR for inflammation. 3. In viewing his fatigue with methotrexate and his r egular intake of alcohol, it would better for him to be off methotrexate and switch to CellC ept, this can start at 500 mg bid, for two weeks, then increase to 1000 mg bid. Check CBC tw o weeks after starting the medication, and then monitor at 2-3 months interval. 4. Continue with prednisone at 5 mg a day. 5. CT scan of abdomen to evaluate fibrosis. 6. Will talk with his PCP, Dr. Kush Licea ([phone]) for switch of MTX to CellCept. 7. Return in 3 month s. MAXIMO BENÍTEZ MD RHEUMATOLOGY FACULTY [facility] Mailcode: [id number] [facility] [id number] documented in this enco unter Procedure Notes Filippo Faculty - 07/21/2009 12:00 AM PSTAssociated Order(s): RADIOLOGY documented in this encou nter Miscellaneous Notes Scan - Filippo Faculty - 04/07/2009 2:47 PM PDT can - Madison Barkley acoleksandry - 03/07/2009 1:25 PM PDT documented in t his encounter Plan of Treatment Not on filedocumented as of this encounter Procedures + +--------+ + + + | Procedure Name | Priori | Date/Time | Associated Diagnosis | Comments | | | ty | | | | + +--------+ + + + | RADIOLOGY | | 07/21/2009 | | Results for this | | | | 12:00 AM | | procedure are in the | | | | PST | | results section. | + +--------+ + + + documented in this encounter Results RADIOLOGY (07/21/2009 12:00 AM PST) + + + | Narrative | Performed At | + + + | | | + + + + + | Procedure Note | + + | Other, Faculty - 07/21/2009 12:00 AM PST | | | + + SEDIMENTATION RATE (03/06/2009 12:15 PM PDT) + +-------+ + + + | Component | Value | Ref Range | Performed | Pathologist | | | | | At | Signature | + +-------+ + + + | SEDIMENTATI | 3 | <21 mm/hr | [facility] | | | ON RATE | | [...] | + + + + + | [facility]PARTMENT [facility] | [address] | [place] [address] | | | PATHOLOGY | [address] | | | + + + + + | [facility] | [address] | [place] [address] | | | PATHOLOGY | [address] [...] effective 10/11/08 | [facility] | | [facility] | DEPARTMENT OF | | [place] [address] [address] [facility] | PATHOLOGY | | [place] [address] | | + + + + + + + + | Performing | Address | City/State/Zipcode | Phone Number | | Organization | | | | + + + + + | [facility] | [address] [facility] | [place] [address] | | | PATHOLOGY | [address] | | | + + + + + | [facility] | [address] [facility] | [place] [address] | | | PATHOLOGY | [address] [...] Performed At | + + + | [id number] Estimated GFR > 60 mL/min/1.73 sq m if non- | [facility] | | [place] [id number] Estimated GFR > 60 mL/min/1.73 sq m if | DEPARTMENT OF | | [place] GFR is estimated using the MDRD equation [...] | + + + + + | [facility] | [address] [facility] | [place] [address] | | | PATHOLOGY | [address] | | | + + + + + | [facility] | [address] [facility] | [place] [address] | | | PATHOLOGY | [address] [...] | + + + + + | [facility] DE[facility]MENT [facility] | [address] | [place] [address] | | | PATHOLOGY | [address] | | | + + + + + | [facility] | [address] | [place] [address] | | | PATHOLOGY | [address] | | | + + + + + documented in this encounter Visit Diagnoses + + | Diagnosis | + + | 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
--- OUTSIDE RECORDS SUMMARY | ~2020-06-26 | XMS | Encounter Summary ---
Demographics + + + | Address | [address] | | | [place] [address] | + + + | Home Phone [...] [facility] | | | and [...] [place] | | | | | [address] | | + + + + + Care Team Providers + +------+ + | Care Data Management Engineer Name | Role | Phone | [...] | | | | | | | MD SPINE | | | | | | [...] Description | +--------+---------+ + + + | 07/03/ | Surgery | [facility]Y [facility]IREZ | William Schmidt MD | L2-3, L3-4 Lateral | | 2016 | | [facility] CTR OR [facility]TRA OP | [address] | Anterior Interbody | | | | [address] | [place] [address] | Fusion, L4-5 | | | | [place] | [phone] | Transforaminal | | | | [address] | | Lumbar Interbody | | | | [phone] | | Fusion, Posterior | | | | | | Instrumentation at | | | | | | L2-3, L3-4, L4-5 | +--------+---------+ + + + Social History [...] + + + | Blood Pressure | 155/85 | 07/03/2016 8:00 AM | | | | | PDT | | + + + + + | Pulse | 78 | 07/03/2016 8:00 AM | | | | | PDT | | + + + + + | Temperature | 36.6 C (97.9 F) | 07/03/2016 8:00 AM | | | | | PDT | | + + + + + | Respiratory Rate | 18 | 07/03/2016 8:00 AM | | | | | PDT | | + + + + + | Oxygen Saturation | 95% | 07/03/2016 8:00 AM | | | [...] might be different from t he original. [facility] DISCHARGE SUMMARY Patient Name: Kevin Aleman [...] Condition on Discharge: Stable Discharge Medications: Resume MAR Current Discharge Medication List UNREVIEWED medications Medication Dose Last Dose Taken; aspirin 325 mg tablet atorvaSTATin (LIPITOR) 40 mg tablet 40 mg citalopram (CELEXA) 40 mg tablet 40 mg finasteride (PROSCAR) 5 mg tablet 5 mg mycophenolate (CELLCEPT) 500 MG tablet omeprazole ([facility] OMEPRAZOLE) 20 mg [facility] Follow-Up: 3-4 weeks. documented in this [...] might be differ ent from the original. [facility] PROGRESS NOTE Pt. Name/Age/: Kevin Aleman Sr. 70 y.o. 1945 Med. Record Number: [id number] Date of admission: 07/03/2016 Subjective: The patient [...] signed by: Matt Sandoval, 07/06/2016 8:04 [facility] akul Alexander onKatelynn, PharmD - 07/06/2016 7:51 AM PDT ===View-only below this line=== >> KATELYNN DOMINGUEZ 07/06/2016 07:47 [place]IN PER PHARMACY PROTOCOL: Subjective/Objective: Kevin Gutierrez [facility]. is a 70 y.o. male admitted on [...] Perez PHARMD 07/06/2016 7:33Electronicall y signed by Kyle SzymanskiD at 07/06/2016 7:53 AM PDTDaniel Chandler PA-C - 07/05/2016 7:33 AM PDTFormatting of this note might be different from the orig inal. [facility] NEUROSURGERY PROGRESS NOTE Pt. Name/Age/: Kevin Aleman [...] 93 % I/O last 24 Hours: In: 215 [P.O.:240; I.V.:1911] Out: 1040 [Urine:1040] Min/Max Temp [...] signed by: Daniel Chandler, 07/05/2016 7:34 [facility] est, Matt Ramirez PA-C - 07/04/2016 7:54 AM PDTFormatting of this note might be different from the o riginal. [facility] and Services PROGRESS NOTE Pt. Name/Age/: Kevin Aleman Sr. 70 y.o. 1945 Med. Record Number: [id number] Date of admission: 07/03/2016 Subjective: The patient [...] Intake/Output Summary (Last 24 hours) at 07/04/16 5889 Last data filed at 07/04/16 0648 Gross per 24 hour Intake 2776 ml [...] Electronically signed by: Matt Sandoval, 07/04/2016 7:54 [facility] Nessa Fields RN - 06/21/2016 12:22 PM PDTPatient states he always feels anxious, worried & depressed. He relates it to seeing his dad go to a [facility] after a stroke and eventually the re. He has had a stroke himself and does not want to go to a mcfp. He would rather before that happens. He says he has been in touch with his PCP and takes Celexa; he is not sure if it helps. Encouraged to stay in touch with PCP and resources for help if he has thoughts of harming or killing himself. He states understanding. documented in this encounter H&P Notes William Schmidt MD - 07/03/2016 10:19 AM [facility] INTERIM HISTORY [...] signed by: William Schmidt MD 07/03/2016 10:19 [facility] att Sandoval PA -C - 06/21/2016 10:54 AM PDT Matt Sandoval PA-C [address] [facility], [address] [place], [place] [id number] FAX: NEUROSURGERY FOLLOW-UP CHIEF COMPLAINT: Chief Complaint [...] acute distress with unlabored respirations. The ayaan tiedenny does appear uncomfortable throughout the exam [...] has no apparent deficits with short or environmental monitoring technician memory. MOTOR EXAM: (5 IS NORMAL) * Indicates pain limited MUSCLE/ MOVEMENT: RIGHT LEFT Deltoids 5 5 Biceps 5 5 Triceps 5 5 Wrist Flexion 5 5 Wrist Extension 5 5 Median Intrinsics 5 5 Ulnar Intrinsics 5 5 Holistic Pulser Strength 5 5 Hip Flexion 4 5 [...] he is playing to discontinue this without [employer] b ridging. We discussed his surgery in [...] 70 y.o. male who was admitted to [facility] on 2015 for Postural kyphosis of thoracolumbar [...] previ ously treated with serial casting in [place] which apparently resulted in significant im provement [...] [facility] but was redirectable. Review of [...] L4-5; Surgeon: William Schmidt MD; Loca tion: [facility] Allergies: Allergies Allergen Reactions Hydrocodone [...] Nightly, Matt Sandoval PA-C, 40 mg at 07/04/162024 bisacodyl (DULCOLAX) suppository 10 mg, 10 mg, [...] provides intermitt ent supervision at home in [place] Family History: Family History Problem Relation Age [...] Cognitive exam: Oriented to: [facility] Month Year. Does not remember meeting with me yest erday Registration: Able to repeat 3 words after 1 trial Visuospatial: Able to copy cube accurately Visuoconstructional: Able to draw clock burns paiute All numbers present and in correct quadrants [...] training in ADLs, IADLs --Continue Speech therapy (FIRST PRESS OPERATOR) to follow for for cognitive/communication evaluation --Encourage [...] that the patient will meet the fol [facility] criteria: 1) able to make a meaningful [...] of care, 24 hour availability for ac omar medical issues, medication management, and therapeutic and diagnostic assessments. 24 hour rehabilitation nursing 7 days per week for: management/teaching of medications, bow el/bladder routine, skin care. PT for 60-90 minutes per day 5-6 days/week OT for 60-90 minutes per day 5-6 days/week FIRST PRESS OPERATOR for 60 minutes per day 2-3 days/week [...] this chart may have been created with [employer] voice recognition software. Occas ional wrong-word or sound-alike substitutions may have occurred due to the inherent li mitations of voice recognition software. Please read the chart carefully and recognize, in g context, where these substitutions have occurred unham, Jena Naik RN - 07/04/2016 9:45 AM PDTOrder received for acute rehab consult. Awaiting therapy evalua tions to be completed before making a recommendation on rehab services; IPR will follow prog ress. Thank you for this referral. Electronically signed by: LIGIA FloodRDiomedes 016 9:45 documented in this en counter [...] Uses FWW. Pt will be transferred to [facility] today. lan of Care - [facility] Filippo king RN - 07/06/2016 5:30 AM PDTProblem: Patient [...] 2 sidesteps to the right Level of Hemphill : moderate assist (50% patient effort), 2 person assist required Assistive Device: 2 wheeled walker (FWW) Distance (feet): 2 sidesteps Gait Deviations: hiram decreased, limb motion velocity decreased, step length decreased, [id number] clearance decreased Transfers (transfer to commode from bed) Bed-Chair, Level of Hemphill: minimum assist (75% patient effort) Chair-Bed, Level of Hemphill: minimum assist (75% patient effort) [id number], Assistive Device: 2 wheeled walker (FWW) Sit-Stand, Level of Hemphill: minimum assist (75% patient effort), 2 person assist requ ired Stand-Sit, Level of Hemphill: contact guard assist, 2 person assist required [id number], Assistive Device: 2 wheeled walker (FWW) Safety Issues: balance decreased during turns, step length decreased, weight-shifting abili ty decreased, loses balance backward Impairments: muscle tone abnormal, ROM decreased, strength decreased, impaired balance, medical staff services coordinator rdination impaired, motor control impaired, postural control impaired, pain Bed Mobility Assistive Device: bed rails (HOB flat) Roll Left, Level of Hemphill: supervision required Supine to Sit, Level of Hemphill: minimum assist (75% patient effort) Sit to Supine, Level of Hemphill: moderate assist (50% patient effort) (assistance with BLE) Safety Issues: decreased use of legs for bridging/pushing, decreased use of arms for pushin g/pulling Impairments: muscle tone abnormal, ROM decreased, strength decreased, impaired balance, medical staff services coordinator rdination impaired, motor control impaired, [...] ith passive and active movement) STG GOALS Hemphill Level: independent Time to Achieve: 2 days Goal Status: progressing toward goal Transfer Training Goal, Activity Type: bed to chair /chair to bed, sit to stand/stand to si t Hemphill Level: modified independence Assistive Device: 2 wheeled walker (FWW) Time to Achieve: 2 days Goal Status: progressing toward goal Gait Training Goal, Hemphill Level: modified independence Assistive Device: 2 wheeled [...] 07/05/2016 16:47 lan of Care - B Xin Cavazos, ALUM MIXER - 07/05/2016 3:53 PM PDTFormatting of this [...] Breath sounds clear/diminished. Encouraged insp use. Ayaan judit stated he gets sob and begins to wheeze when he gets frustrated. Patient does have a 30 year pack smoking history. Will order prn albuterol treatments. Continue to monitor alessandro wing. Severity Score 6 Class 2 Severity Score [...] y.o. Precautions/Limitations: falls, spinal, orthotic/bracing Start Time: 842 Stop time: 934 Time Calculation: 52 minutes [...] dressing, see bel ow. Initiated use of nurse infection control to don over feet. Sit-stand w/ min assist, 2nd person for saf ety. Stood w/ minimal bent knee posture but appears to be less than yesterday. Tolerated s tanding for becky-hygiene and to manage pants. 2-person min physical assist to transfer to c hair @ bedside. Multiple verbal cues to maintain safe distance to FWW, advance LLE. Pt rep orts difficulty moving RLE but RLE advanced easier than L. Seated in chair, brushed teeth. Briefly educated on IRF. Pt uncertain if he can participate the 3 hours necessary. Urgent need to use urinal and had incontinence. Care transitioned to MERRY GO ROUND OPERATOR. Education: Log-roll; safety Treatment Provided: ADL training; functional mobility; safety awareness Patient Status/Goals Reflects last filed data of patient status; may be from multiple contributors. ADLs UB, becky-area this visit Bathing, Level of Hemphill: moderate assist (50% patient effort), verbal cues required, set up required, 2 person assist required Bathing Assess/Train, Position: sitting, supported standing Bathing Assess/Train, Impairments: decreased flexibility, ROM decreased, pain, impaired bal ance Pants only this visit LB, Level of Hemphill: 2 person assist required, maximum assist (25% patient effort), v erbal cues required, set up required Assistive Device: nurse infection control LB Dressing Assess/Train, Position: sitting, supported standing Toothbrushing, face wash only Grooming, Level of Hemphill: set up required, verbal cues required Grooming Assess/Train, Position: sitting Grooming Assess/Train, Impairments: coordination impaired Cognitive Decreased processing, motor planning Attention: mild impairment Personal Safety: moderate impairment Sequencing: mild impairment STG Goals Transfer Training Goal, Activity Type: toilet Hemphill Level: minimum assist (75% patient effort) Assistive Device: 2 wheeled walker (FWW) Time to Achieve: 5 - 7 days Goal Status: continued Grooming Goal, Hemphill Level: set up required, supervision required Adaptive Equipment: none Position: sitting in chair Time to Achieve: 2 - 3 days Goal Status: progressing toward goal UB Dressing Goal, Hemphill Level: minimum assist (75% patient effort) Adaptive Equipment: none Time to Achieve: 4 days Goal Status: not addressed LB Dressing Goal, Hemphill Level: moderate assist (50% patient effort) Adaptive Equipment: nurse infection control, dressing stick, shoe horn, long handled Time [...] and RLE function appear to have less [place] than yesterday. Decreased motor planning, processing, especially w/ transfers and LB d ressing. Pt anxious w/ his SOB, wheezing- limited success in pursed lip breathing to slow r ate. O2 sats stable w/ the activity. May benefit from further rehab intervention- IRF vs S NF vs Home Health. Occupational Therapy Anticipated Discharge Needs are: chcf facility, inpatient rehabilitation facility Have the anticipated [...] Afebrile. lan of Care - Silvia Sosa, ALUM MIXER - 07/05/2016 1:03 AM PDTProblem: Patient Care [...] cannula, BS clear/diminished. lan of Care - Isaac patricia, Rula Luo RN - 07/04/2016 6:31 PM PDTProblem: Patient [...] maintain SpO2. lan of Care - Binh Schafer, ALUM MIXER - 07/04/2016 4:49 PM PDTProblem: Patient Care [...] 2150 continue to encourage use lan of Jessica Casillas OT - 07/04/2016 4:09 PM PDT Problem: [...] his face. Occupational Therapy will follow Kevin Aleman Sr. 5 times/wk [facility] from the hospital. Occupational Therapy [...] Goals Transfer Training Goal, Activity Type: toilet Hemphill Level: minimum assist (75% patient effort) Assistive Device: 2 wheeled walker (FWW) Time to Achieve: 5 - 7 days Goal Status: new Grooming Goal, Hemphill Level: set up required, supervision required Adaptive Equipment: none Position: sitting in chair Time to Achieve: 2 - 3 days Goal Status: new UB Dressing Goal, Hemphill Level: minimum assist (75% patient effort) Adaptive Equipment: none Time to Achieve: 4 days LB Dressing Goal, Hemphill Level: moderate assist (50% patient effort) Adaptive Equipment: nurse infection control, dressing stick, shoe horn, long handled Time [...] OT, 07/04/2016 16:02 lan of Care - ock, Hayley Irvin RN - 07/04/2016 1:08 PM PDTProblem: Discharge Planning Goal: Patient will be discharged in a safe manner Discharge planning: This CM met with Mr Kevin Aleman at his bedside today. He states he lives with his in their home in [place]. He state that he is normally independent, he does use a cane when needed. He does not have a FWW and will need one at discharge. He would like to [facility] on. He does not use any home oxygen. His PCP is Dr Licea and he uses [facility] in [place]. His , Delilah will be his transportation [...] toilet seat. I recommende d she contact [facility] in [place] @ [phone] for a raised toilet seat and if [...] Treatment Note Patient Information Patient Name: Kevin Gutierrez [facility]. Date of : 1945 Age: 70 y.o. [...] 2 sidesteps to the right Level of Hemphill : moderate assist (50% patient effort), 2 person assist required Assistive Device: 2 wheeled walker (FWW) Distance (feet): 2 sidesteps Gait Deviations: hiram decreased, limb motion velocity decreased, step length decreased, [id number]-rg-[id number] clearance decreased Transfers (sit to stand from edge of eleevated bed 2P for balance. Pt unable to extend knees and th erefore stands in a crouched position) Sit-Stand, Level of Hemphill: minimum assist (75% patient effort), 2 person assist requ ired Stand-Sit, Level of Hemphill: contact guard assist, 2 person assist required [id number], Assistive Device: 2 wheeled walker (FWW) Safety Issues: loses balance backward Impairments: muscle tone abnormal, ROM decreased, sensation decreased, strength decreased, impaired balance, coordination impaired, motor control impaired, sensory feedback impaired, pain Bed Mobility Assistive Device: bed rails, HOB elevated Roll Left, Level of Hemphill: contact guard assist Supine to Sit, Level of Hemphill: (Assistance with RLE, difficulty extending due to sp asticity) Sit to Supine, Level of Hemphill: (Assistance with BLE) Safety Issues: decreased use of arms for pushing/pulling, decreased use of legs for bridgin g/pushing Impairments: muscle tone abnormal, ROM decreased, strength decreased, impaired balance, medical staff services coordinator rdination impaired, motor control impaired, [...] ith passive and active movement) STG GOALS Hemphill Level: independent Time to Achieve: 2 days Goal Status: continued Transfer Training Goal, Activity Type: bed to chair /chair to bed, sit to stand/stand to si t Hemphill Level: modified independence Assistive Device: 2 wheeled walker (FWW) Time to Achieve: 2 days Goal Status: progressing toward goal Gait Training Goal, Hemphill Level: modified independence Assistive Device: 2 wheeled [...] about his having to drive over from [place] in poor weather. Pt was informed that a Director Student Union could speak to him more on this. [...] training Electronically signed by: Hector Davila, PT, 07/04/2016 12:30 lan of Care - S Mary michael RN - 07/04/2016 7:58 AM PDTProblem: Patient [...] time. Denies n ausea. CMS intact. Strong plant associate, strong dorsi/plant on LLE, mod dorsi/plant on [...] Strong on L. lan of Care - Lola, Hector Bella, PT - 07/03/2016 6:19 PM PDT Problem: [...] amputation Skin cancer excision 2014 cancer spots Allergies Allergen Reactions Hydrocodone Itching [...] rails, HOB elevated Roll Left, Level of Hemphill: contact guard assist Supine to Sit, Level of Hemphill: minimum assist (75% patient effort) (Assist with trun k to upright) Sit to Supine, Level of Hemphill: minimum assist (75% patient effort) (assist with LE) Safety Issues: decreased use of legs for bridging/pushing Impairments: decreased flexibility, strength decreased, impaired balance, pain Balance Sitting Balance: Static: fair balance Sitting Balance: Dynamic: fair balance ROM ROM Testing Results: no range of motion deficits identified Strength L LE Strength: Grossly 4/5 R LE Strength: grossly 3+/5 STG GOALS Hemphill Level: independent Time to Achieve: 2 days Goal Status: new Transfer Training Goal, Activity Type: bed to chair /chair to bed, sit to stand/stand to si t Hemphill Level: modified independence Assistive Device: 2 wheeled walker (FWW) Time to Achieve: 2 days Goal Status: new Gait Training Goal, Hemphill Level: modified independence Assistive Device: 2 wheeled [...] by: Hector Davila, PT, 07/03/2016 18:12 p Carlos Manuel - Pauly Schmidt MD - 07/03/2016 2:20 PM PDTFormatting of this note might be different from the orig inal. Operative Note Kevin Aleman Sr. 70 y.o. male 1945 [id number] Proc. Date 07/03/2016 Preop Dx Postural kyphosis [...] Bill Surgeon William Schmidt MD - Primary Access Specialist Maximo Sandoval PA-C EBL 154 Findings Very [...] was inserted over the dilators. The light [facility] es were connected and the area was [...] PEEK spacer was prepared filling it with [place]/Osteocel and then tamping it into the interspace [...] PEEK spacer was prepared filling it with [place]/Osteoce l and then tamping it into the [...] obtained from the dril ling and cancellous chips/[place] with bone marrow aspirate were packed in [...] signed by: William Schmidt MD 07/03/2016 14:18 [facility] rief Op Note - Rajesh Schmidt MD - 07/03/2016 2:18 PM PDTFormatting of this note might be different from the origin al. Brief Operative Note Kevin Aleman Sr. 70 y.o. male 1945 [id number] Proc. Date 07/03/2016 Preop Dx Postural kyphosis [...] Bill Surgeon William Schmidt MD - Primary Access Specialist Maximo Sandoval PA-C EBL 154 Findings Very soft bone. C bracing. Complications none Specimens * No specimens in log * Drains None Electronically signed by: William Schmidt MD 07/03/2016 14:18 [facility]ron[facility] by William Schmidt MD at 016 2:20 PM PDTPlan of Care - Sriram Vogel Chaplain - 07/03/2016 11:22 AM PDTProblem: Patient Care Overview (Adult) Goal: Care Team Goals & Evaluation PROBLEM-RELATED GOALS: STRATEGY TO ACHIEVE GOALS: RESTRAINT-RELATED GOALS: STRATEGIES TO ACHIEVE RESTRAINT GOALS: Spiritual Care Kevin Gutierrez [facility]. is a 70 y.o. 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 Clothes Model visit is in response to an electronic [...] but has no affiliation with any part [facility] [place] mandaen or jessica group. He maintains a personal [...] | | | + +---------+ + + [place] C-Arm Stats No Charge (07/03/2016 2:03 PM PDT) + [...] 34 | 22 - 36 seconds | [facility] | | | | | [...] [address] | [place] | [phone] | | [facility] | | [address] | | | - LABORATORY | | [...] ST. | [address] | [place] | [phone] | | [facility] | | [address] | | | - LABORATORY | | | | + + + + + documented in this encounter Visit Diagnoses + + | Diagnosis | + + | Postural kyphosis of thoracolumbar region Kyphosis (acquired) (postural) | + + documented in this encounter [...] Shortness of Breath, | | | Starting Fri07/05/16 at 1605, RT | | | will [...] | | +---+---+ + +-------+ +---------+---+---+ | bacitracin injection PRN, | Given | 07/03/20 | 50,000 | | | | Starting Fri07/03/16 at 1153, | | 16 11:53 | Units | | | | Intra-op | | AM PDT | | | | + +-------+ +---------+---+---+ +---+---+ | | | +---+---+ + +-------+ +--------+---+ + | bupivacaine (liposomal) | Given | 07/03/20 | 20 mLs | | Surgical | | (EXPAREL) 1.3% injection PRN, | | 16 1:54 | | | Site | | Starting Fri07/03/16 at 1354, | | PM PDT | | | | | Intra-op | | | | | | + +-------+ +--------+---+ + +---+---+ | | | +---+---+ + +-------+ +--------+---+---+ | bupivacaine 0.5%-EPINEPHrine | Given | 07/03/20 | 15 mLs | | | | 1:200,000 injection PRN, | | 16 1:09 | | | | | Starting 07/03/16 at 1153, | | PM PDT | | | | | Intra-op | | | | | | + +-------+ +--------+---+---+ +-------+ +--------+---+---+ | Given | 07/03/20 | 15 mLs | | | | | 16 11:53 | | | | | | AM [...] | | | | | Indigestion, Starting Wed | | | | | | | 07/03/16 at 1615, Post-op/Phase | | | | | | | II | | | | | | + +-------+ + +---+---+ +---+---+ | | | +---+---+ + +-------+ [...] AM PDT | | | | | Fri07/03/16 at 1615, Oral route | | | [...] +------+---+---+ +---+---+ | | | +---+---+ + +---------+ +---+---+---+ | lactated ringers (LR) infusion | New Bag | 07/03/20 | | | | | at 100 mL/hr, Intravenous, | | 16 11:40 | | | | | CONTINUOUS, Starting Fri07/03/16 | | AM PDT | | | [...] +---+-------+---+ +---------+ +---+-------+---+ | New Bag | 10/21/20 | | 100 | | | | 16 7:50 | | mL/hr | | | | PM PDT | | | | +---------+ +---+-------+---+ | New Bag | 10/21/20 | | 100 | | | | 16 7:13 | | mL/hr | | | | AM PDT | | | | +---------+ +---+-------+---+ +---+---+ | | | +---+---+ documented in this encounter
--- OUTSIDE RECORDS SUMMARY | ~2020-06-26 | XMS | Encounter Summary ---
Demographics + + + | Address | [address] | | | [place] [address] | + + + | Home Phone [...] + + + | Author | [facility] | + + + | Organization | [facility] | + + + | Address | Unknown | + + + | Phone | Unavailable | + + + Support + + + + + | Name | Relationship | Address | Phone | + + + + + | Delilah Aleman | ECON | [address] | | | | | [place] | | | | | [address] | | + + + + + Care Team Providers + +------+ + | Care Iv Technician Name | Role | Phone | [...] Description | +--------+---------+ + + + | 11/28/ | Office | Rheumatology at | Hector Littlejohn MD | Retroperitoneal | | 2008 | Visit | [facility] | [address] | Fibrosis (Primary | | | | [address] | [address] [place], | Dx) | | | | [facility] | [place] [address] | | | | | [facility], [address] | [phone] | | | | | [place], [place] | | | | | | [address] | | | | | | [phone] | | | +--------+---------+ + + + [...] + + + | Blood Pressure | 122/84 | 11/28/2008 10:01 AM | | | | | PDT | | + + + + + | Pulse | 98 | 11/28/2008 10:01 AM | | | | | PDT | | + + + + + | Temperature | - | - | | + + + + + | Respiratory Rate | - | - | | + + + + + | Oxygen Saturation | 96% | 11/28/2008 10:01 AM | | | | | PDT | | + + + + + | Inhaled Oxygen | - | - | | | Concentration | | | | + + + + + | Weight | 73.9 kg (163 lb) | 11/28/2008 10:01 AM | | | | | PDT | | + + + + + | Height | - | - | | + + + + + | Body Mass Index | - | - | | + + + + + documented in this encounter Progress Notes Hector Littlejohn MD - 11/28/2008 4:58 PM PDT Progress Note Clinic: Rheumatology Reason for follow-up: Chief Complaint Patient presents with Follow-up visit 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 Since he wa s seen last itme here in July 2008, he has been placed on prednisone starting with 40 mg per day for one month, then taper down to 30 mg for one month, 25 mg for one month and furt her down to 20 mg started on 11/03/2008. He reports much improved symptoms and rarely has paula k pain. He continues his work in a [employer] and walks about 6 miles a day for 40 hours a week. He has no chest pain. His CT scan of abdomen showing continued improving of fibrosis. He jimenez s gained about 10 lbs of body weight since started prednisone. He has no other complains. Past Medical History: Past Medical History Diagnosis Date Unspecified Essential Hypertension Unspecified Cerebral Artery Occlusion with Cerebral Infarction Medications: Current outpatient prescriptions Medication Sig aspirin 325 mg Oral Tablet take 1 tablet by oral route once daily Calcium Carbonate-Vitamin D2 (CALCIUM + D) 600-200 [...] daily predniSONE 10 mg Oral Tablet Take 10 mg by mouth two times daily. PREVACID 30 mg Oral Capsule, Delayed Release(E.C.) take 1 capsule (30 mg) by oral route once daily before a meal simvastatin 40 mg Oral Tablet Take 40 mg by mouth once daily in the evening. VYTORIN 10/40 10-40 mg Oral Tablet take [...] Stroke in his father. Physical Exam BP 122/84 | Pulse 98 | Wt 73.936 kg (163 lb) | SpO2 96% Pain Score: 0 Gen: Well nourished, well developed, in NAD HEENT: unremarkable Neck: no lymphadenopathy, FROM Lungs: clear to ausculations bilaterally CVS: S1, S2 RRR, no murmurs, rubs or gallops Abd: normal. No tenderness, liver and spleen were not palpable. Ext: No clubbing, cyanosis, or edema M/S: no synovitis, FROM Skin: normal Neuro: normal. Labs: Lab Results Basename Value Date/Time WBC 7.1 11/28/08 10:55 AM HB 17.3 11/28/08 10:55 AM HCT 50.6 11/28/08 10:55 AM PLT 235 11/28/08 10:55 AM MCV 96.7 11/28/08 10:55 AM RDW 14.5 11/28/08 10:55 AM Lab Results Basename Value Date/Time NA 136 11/28/08 10:55 AM K 3.7 11/28/08 10:55 AM CL 100 11/28/08 10:55 AM BICARB 27 11/28/08 10:55 AM BUN 13 11/28/08 10:55 AM CR 1.02 11/28/08 10:55 AM GLU 127 11/28/08 10:55 AM CA 9.0 11/28/08 10:55 AM AST 26 11/28/08 10:55 AM ALT 29 11/28/08 10:55 AM AP 68 11/28/08 10:55 AM TBILI 0.9 11/28/08 10:55 AM TP 7.1 11/28/08 10:55 AM ALB 3.7 11/28/08 10:55 AM Lab Results Basename Value Date/Time ESR 5 11/28/08 10:55 AM Radiology: CT of abdomen, 11/14/2008. Impression: the mount of retroperitoneal fibrosis has c ontinue to diminish and is now seen on the leftward aspect o fthe medial to distal aorta, me asuring only 5-6 mm in thickness. (please see Films and scanned report for details). Impression: This is a 63 y.o. male here for follow up of retropeitoneal fibrosis. He is im proving on prednisone. He has had some adverse effect from steroids, namely weight gain. Pain Assessment: Rapid 3 MHAQ: 1.7 (11/28/08 10:00 AM) PAIN LEVEL: 0 (11/28/08 10:00 AM) GLOBAL ASSESSMENT: 7 (11/28/08 10:00 AM) RAPID 3: 2.9 (11/28/08 10:00 AM) Recommendations: 1. Reduce prednisone to 15 mg a day starting on 12/01/2008 and further down to 10 mg a day on 01/01/2009, 7.5 mg a day on 01/31/2009, 5 mg a day on 03/03/2009. 2. Start m ethotrexate 7.5 mg per week, for two weeks, increase to 12.5 mg per week for two weeks, then increase to 15 mg per week and stay on this dose. Folic acid 1 mg QD. 3. Add calcium and vi tamin D. 4. No further CT is needed until he is seen again in two months and a decision will be made then. 5. Patient was advised not to drink alcohol while he is on methotrexate. He u nderstands and amendable to this. 6. I phoned Dr. Kush Licea and asked to help with monitor ing toxicity of methotrexate every two weeks after starting methotrexate by checking CBC, T, ALT. 7. Return to this clinic in 2 months. documented in this enco unter Miscellaneous Notes Scan - Other, Faculty - 01/16/2009 7:15 AM PDT can - Other, Faculty - 01/13/2009 2:24 AM PDT Electronica lly signed by InterfaceEmerald In at 01/13/2009 2:24 AM PDTScan - Other, Faculty - 12/15 1:47 PM PDT P DTScan - Other, Faculty - 12/15/2008 9:17 AM PDT documented in this encounter Plan of Treatment Not on filedocumented as of this encounter Results C-REACTIVE PROTEIN, SERUM (11/28/2008 10:55 AM PDT) + +-------+ + + + [...] | Reference Range Change effective 10/11/08 | | | [facility] ([facility]) [place] | | | [place] [address] [address] [employer] [facility] | | | [place] [address] | | + + + + + + + + | Performing | Address | City/State/Zipcode | Phone Number | | Organization | | | | + + + + + | [facility] | [address] | [place] [address] | | | LABORATORY | | | | + + + + + SEDIMENTATION RATE (11/28/2008 10:55 AM PDT) + +-------+ + + + | Component | Value | Ref Range | Performed | Pathologist | | | | | At | Signature | + +-------+ + + + | SEDIMENTATI | 5 | <21 mm/hr | [facility] | | [...] | + + + + + | [facility] DEPARTMENT OF | [address] | [place] [address] | | | PATHOLOGY | [address] | | | + + + + + | [facility] DEPARTMENT OF | [address] | [place] [address] | | | PATHOLOGY | [address] | | | + + + + + COMPLETE METABOLIC SET (NA,K,CL,CO2,BUN,CREAT,GLUC,CA,AST,ALT,BILI TOTAL,ALK PHOS,ALB,PROT TOTAL) (11/28/2008 10:55 AM PDT) + +---------+ + + + | Component | Value | Ref Range | Performed | Pathologist | | | | | At | Signature | + +---------+ + + + | GLUCOSE, | 127 (H) | 60 - 99 mg/dL | [facility] | | | PLASMA | | | DEPARTMENT | | | (LAB) | | | OF | | | | | | PATHOLOGY | | + +---------+ + + + | BUN, PLASMA | 13 | 6 - 20 mg/dL | [facility] | | | (LAB) | | | DEPARTMENT | | | | | | OF | | | | | | PATHOLOGY | | + +---------+ + + + | CREATININE | 1.02 | 0.70 - 1.30 | [facility] | | | PLASMA | | mg/dL | DEPARTMENT | | | (LAB) | | | OF | | | | | | PATHOLOGY | | + +---------+ + + + | TOTAL | 7.1 | 6.1 - 7.9 g/dL | [facility] | | | PROTEIN, | | | DEPARTMENT | | | PLASMA | | | OF | | | (LAB) | | | PATHOLOGY | | + +---------+ + + + | ALBUMIN, | 3.7 | 3.5 - 4.7 g/dL | [facility] [...] +---------+ + + + | BILIRUBIN | 0.9 | 0.3 - 1.2 mg/dL | [facility] | | | TOTAL | | | DEPARTMENT | | | | | | OF | | | | | | PATHOLOGY | | + +---------+ + + + | ALK PHOS | 68 | 56 - 119 U/L | [facility] | | | | | | DEPARTMENT | | | | | | OF | | | | | | PATHOLOGY | | + +---------+ + + + | AST(SGOT) | 26 | 15 - 41 U/L | [facility] | | | | | | DEPARTMENT | | | | | | OF | | | | | | PATHOLOGY | | + +---------+ + + + | SODIUM, | 136 | 134 - 143 | [facility] | | | PLASMA | | mmol/L | DEPARTMENT | | | (LAB) | | | OF | | | | | | PATHOLOGY | | + +---------+ + + + | POTASSIUM, | 3.7 | 3.4 - 5.0 | [facility] | | | PLASMA | | mmol/L | DEPARTMENT | | | (LAB) | | | OF | | | | | | PATHOLOGY | | + +---------+ + + + | CHLORIDE, | 100 | 97 - 108 mmol/L | [facility] | | | PLASMA | | | DEPARTMENT | | | (LAB) | | | OF | | | | | | PATHOLOGY | | + +---------+ + + + | TOTAL CO2, | 27 | 23 - 31 mmol/L | [facility] | | | PLASMA | | | DEPARTMENT | | | (LAB) | | | OF | | | | | | PATHOLOGY | | + +---------+ + + + | ALT (SGPT) | 29 | 13 - 48 U/L | [facility] | | | | | | DEPARTMENT | | | | | | OF | | | | | | PATHOLOGY | | + +---------+ + + + + + | Specimen | + + | Blood - Blood | + + + + + | Narrative | Performed At | + + + | [id number] Estimated GFR > 60 mL/min/1.73 sq m if non- | [facility] | | [place] [id number] Estimated GFR > 60 mL/min/1.73 sq m if | DEPARTMENT OF | | [place] GFR is estimated using the MDRD equation [...] | + + + + + | [facility] DEPARTMENT OF | [address] | [place] [address] | | | PATHOLOGY | [address] | | | + + + + + | [facility] DEPARTMENT OF | [address] | [place] [address] | | | PATHOLOGY | [address] | | | + + + + + CBC, WITH DIFFERENTIAL (11/28/2008 10:55 AM PDT) + + + + + + | Component | Value | Ref Range | Performed | Pathologist | | | | | At | Signature | + + + + + + | WHITE CELL | 7.1 | 4.4 - 11.0 K/cu | [facility] | | | COUNT | | mm | DEPARTMENT | | | | | | OF | | | | | | PATHOLOGY | | + + + + + + | RED CELL | 5.23 | 4.50 - 5.90 | [facility] | | | COUNT | | M/cu mm | DEPARTMENT | | | | | | OF | | | | | | PATHOLOGY | | + + + + + + | HEMOGLOBIN | 17.3 | 13.5 - 17.5 | [facility] | | | | | g/dL | DEPARTMENT | | | | | | OF | | | | | | PATHOLOGY | | + + + + + + | HEMATOCRIT | 50.6 | 41.0 - 53.0 % | [facility] | | | | | | DEPARTMENT | | | | | | OF | | | | | | PATHOLOGY | | + + + + + + | MCV | 96.7 (H) | 80.0 - 96.0 fL | [facility] | | | | | | DEPARTMENT | | | | | | OF | | | | | | PATHOLOGY | | + + + + + + | MCHC | 34.3 | 33.4 - 35.5 | [facility] | | | | | g/dL | DEPARTMENT | | | | | | OF | | | | | | PATHOLOGY | | + + + + + + | RDW | 14.5 | 11.5 - 15.0 % | [facility] | | | | | | DEPARTMENT | | | | | | OF | | | | | | PATHOLOGY | | + + + + + + | PLATELET | 235 | 150 - 400 K/cu | [facility] [...] + + + + + | [facility] | [address] | [place] [address] | | | PATHOLOGY | [address] | | | + + + + + | [facility] | [facility] | [place] [address] | | | PATHOLOGY | [address] | | | + + + + + documented in this encounter Visit Diagnoses + + | Diagnosis | + + | Retroperitoneal fibrosis - Primary Other ureteric obstruction | + + documented in this encounter"
--- OUTSIDE RECORDS SUMMARY | ~2020-06-26 | XMS | Encounter Summary ---
Demographics + + + | Address | [address] | | | [place] [address] | + + + | Home Phone [...] Author | [facility] | | | and [...] [place] | | | | | [address] | | + + + + + Care Team Providers + +------+ + | Care Garde Manger Name | Role | Phone | + +------+ + | Harris Sauceda MD | PCP | | + +------+ + Reason for Visit +---------+ + | Reason | Comments | +---------+ + | Post Op | Right foot gastrocnemius release,and release of flexor tendons, | | | and release hallucis adductor, and pinning of right toes *Poss | | | suture removal* DOS 05/19/19 | +---------+ + Encounter Details +--------+---------+ + + + | Date | Type | Department | Care Team | Description | +--------+---------+ + + + | 06/01/ | Office | [facility] | Sebastian Bill | S/P orthopedic | | 2019 | Visit | ORTHOPEDIC SURGERY | [address] | surgery, follow-up | | | | [address] | [address] | exam (Primary Dx) | | | | [place] | [place] [address] | | | | | [address] | [phone] | | | | | [phone] | | | +--------+---------+ + + + [...] | 64 kg (141 lb 1.5 | 06/01/2019 2:19 PM | | | | oz) | PDT | | + + + + + | Height | 167.6 cm (5' 6") | 06/01/2019 2:19 PM | | | | | PDT | | + + + + + | Body Mass Index | 22.77 | 06/01/2019 2:19 PM | | | | | PDT [...] documented as of this encounter Progress Notes Sebastian Bill PA-C - 06/01/2019 2:30 PM PDTFormatting of this note might be differe nt from the original. Name:Kevin Aleman . Todays Date: 06/02/2019 Age: 73 y.o. PCP: Harris Sauceda MD Chief Complaint Patient presents with Post Op Right foot gastrocnemius release,and release of flexor tendons, and release hallucis add uctor, and pinning of right toes *Poss suture removal* DOS 05/19/19 SUBJECTIVE: Patient returns today for postoperative visit following right foot surgery that we performe d 2 weeks ago on 05/19/2019. I saw him last week for bandage changes and he was healing appro priately and well. He returns today for reexamination and likely suture removal. He has no complications since being previously seen. He has been nonweightbearing. He feels that he is healing appropriately and well. OBJECTIVE: Remove the upright walking boot today. Remove the bandages as well. Inspection of the mul tiple incision sites reveal they are healing appropriately and well. The K wire fixation pi ns are all in place at the distal aspect of the second, third, fourth and fifth toes. I hav e removed the Xeroform gauze today. Inspection of all locations reveal no evidence of any c omplication or infection. The skin is warm and dry. Remove sutures from the 2 incision sit es at the posterior ankle and the dorsum of the big toe. These were cleaned with hydrogen p eroxide and dressed with Mastisol and structures. Removed the single interrupted sutures at the plantar aspect of the toes where the flexor tendon releases were performed over the sec ond, third, fourth and fifth toes. Kept the Steri-Strips in place. We bandages the areas w ith Xeroform and triple the K wire fixation pin sites. Wrapped with Kerlix and Danielito wrap Imaging/Studies: No studies to review at this time. Vitals: 06/01/19 1419 Weight: 64 kg (141 lb 1.5 oz) Height: 1.676 m (5' 6") ASSESSMENT/PLAN: 1. Right foot surgery, status postop A. Patient is recovering appropriately from right foot surgery performed 2 weeks ago. Re moved suture from the incision sites today. There is no evidence of any complication or inf ection. Triple antibiotic ointment and new gauze was placed over the incision sites and a K wire fixation pin locations. New bandages were applied. Placed him back into walking boot . He is nonweightbearing for the 4 weeks until his next visit. Likely K wire fixation doc arline at his next visit. B. Patient is advised that if they have any questions, comments or concerns to contact our office. Electronically signed by: Sebastian Bill PA-C 06/02/2019 9:04 If patient received pain medication today the prescription monitoring program was reviewed and patient appears to be in compliance with his program. This note was dictated using the [employer] voice recognition system. Minor errors in grammar may have occurred. documented in t his encounter Plan of Treatment Not on filedocumented as of this encounter Visit Diagnoses + + | Diagnosis | + + | S/P orthopedic surgery, follow-up exam - Primary Follow-up examination, following | | other surgery | + + documented in this encounter
--- OUTSIDE RECORDS SUMMARY | ~2020-06-26 | XMS | Encounter Summary ---
Demographics + + + | Address | [address] | | | [place] [address] | + + + | Home Phone | | + + + | Preferred Language | Unknown | + + + | Marital Status | | + + + | Confucianism Affiliation | Unknown | + + + | Race | White | + + + | Ethnic Group | Not or | + + + Author + + + | Author | [facility] | | | and [place] | + + + | Organization | [facility] | | | [...] [place] | | | | | [address] | | + + + + + Care Team Providers + +------+ + | Care Outdoor Illuminating Engineer Name | Role | Phone | + +------+ + | Almas Licea MD | PCP | | + +------+ + Reason for Visit +--------+--------+ + | Reason | Onset | Comments | | | Date | | +--------+--------+ + | Other | 06/28/ | presurgical check-in instructions | | | 2015 | | +--------+--------+ + Encounter Details +--------+ + + + + | Date | Type | Department | Care Team | Description | +--------+ + + + + | 06/28/ | Telephone | [facility] | William Garcia MD | Other (presurgical | | 2016 | | NEUROSURGERY [address] | check-in | | | | [address] | [place] [address] | instructions ) | | | | [place] | [phone] | | | | | [address] | | | | | | [phone] | | | +--------+ + + + [...] Notes Telephone Encounter - Imelda Marcos - 06/28/2016 12:45 PM PDTAll presurgical check-in instructions given Surgery date: 07/03/16 Check-in Time: 8:05 AM No solids or liquids after midnight the night before surgery. Follow the cleansing instructions provided beginning the night before surgery after you coleman wer or bathe. No showering the morning of surgery. Please do not wear jewelry, contact lenses to surgery check-in. If you have dentures, hearing aids, or glasses please bring the cases with you to check-in. Medications instructions: Held for procedure as of 06/26/16: Aspirin, Warfarin. Hold the m orning of surgery: Losartan. Surgical Admit Anticipated Disposition reviewed and correct: "Yes Confirmation of procedure/approval: "Yes". elephone Encounter - Florence Talavera - 06/28/2016 11:59 AM PDTPatient returning call advised to please contac t him at [phone]. elephone Encounter - Imelda Marcos - 06/28/2016 11:52 AM PDTCall returned. Left a voicemail requesting callback. elephone Encounter - Florence Talavera - 06/28/2016 11:28 AM PDTPatient called returning Imelda's call. Please contact paitent eleph one Encounter - Imelda Marcos - 06/28/2016 9:46 AM PDTLeft a message requesting a call back to give presurgical check-in instructions. Date: 07/03/16 Time: 8:05AM documented in this encounter Plan of Treatment Not on filedocumented as of this encounter Visit Diagnoses Not on filedocumented in this encounter
--- OUTSIDE RECORDS SUMMARY | ~2020-06-26 | XMS | Encounter Summary ---
Demographics + + + | Address | [address] | | | [place] [address] | + + + | Home Phone | | + + + | Preferred Language | Unknown | + + + | Marital Status | | + + + | Rastafari Affiliation | Unknown | + + + | Race | White | + + + | Ethnic Group | Not or | + + + Author + + + | Author | [facility] | | | and [place] | + + + | Organization | [facility] | | | and [...] [place] | | | | | [address] | | + + + + + Care Team Providers + +------+ + | Care Surgical Supplies Sterilizer Name | Role | Phone | + +------+ + | Almas Licea MD | PCP | | + +------+ + Reason for Visit + +--------+ + | Reason | Onset | Comments | | | Date | | + +--------+ + | Imaging Only | 05/12/ | | | | 2016 | | + +--------+ + Encounter Details +--------+ + + + + | Date | Type | Department | Care Team | Description | +--------+ + + + + | 05/12/ | Telephone | [facility] | William Garcia MD | Imaging Only | | 2017 | | NEUROSURGERY [address] | [address] | | | | | [address] | [place] [address] | | | | | [place] | [phone] | | | | | [address] | | | | | | [phone] | | | +--------+ + + + [...] Encounter - Kandis Cantu Cert MA - 06/16/2017 2:16 PM PDTI returned patients call, he was not given his results per his request. He did ask for me to send a letter in t he mail with results. I did tell him we could do that and I would get the letter sent out to day. elephone En counter - William Garcia MD - 06/16/2017 12:53 PM PDTHis hardware is all holding well. His h ip x-ray does not look good with fairly significant arthritic disease. I would advise he work with physiatry on his pain and try to find a way to manage his sympt oms without additional surgery at this time. He should follow-up with us in 6 months. William Garcia elephone Encounter - Kandis Jasmine Cert MA - 06/05/2017 10:55 AM PDTMessage routed to Dr. Garcia.Electronically sig андрей by Bonnie Holcomb MA at 06/05/2017 10:56 AM PDTTelephone Encounter - Matt Sandoval PA-C - 06/05/2017 8:30 AM Denis and I will review the CT scan of his lumbar sp ine upon his return to the office next week. elephone Encounter - Imelda Marcos - 06/04/2017 3:23 PM PDTPatient completed imaging 05/15/17 at [facility]. Imaging is available for revi ew on I-site. Please review and contact patient with results. elephone Encounter - Christine Butts RN - 05/12/20 17 2:[address] order has been sent to [facility]. Patient verbalized unders tanding. He will call once CT is scheduled and completed for review. elephone Encounter - Zo Wilkinson - 05/12/2017 1:18 PM PDTPatient called to request that CT ordered 05/05 be faxed to [facility]. doc umented in this encounter Plan of Treatment Not on filedocumented as of this encounter Visit Diagnoses Not on filedocumented in this encounter"
--- OUTSIDE RECORDS SUMMARY | ~2020-06-26 | XMS | Encounter Summary ---
Demographics + + + | Address | [address] | | | [place] [address] | + + + | Home Phone [...] + | Author | [facility] | | | and [...] [place] | | | | | [address] | | + + + + + Care Team Providers + +------+ + | Care Distribution Lineman Name | Role | Phone | + +------+ + | Almas Licea MD | PCP | | + +------+ + Reason for Visit + +--------+ + | Reason | Onset | Comments | | | Date | | + +--------+ + | Imaging Only | 11/25/ | Request MRI | | | 2016 | | + +--------+ + Encounter Details +--------+ + + + + | Date | Type | Department | Care Team | Description | +--------+ + + + + | 11/25/ | Telephone | [facility] | William Garcia MD | Imaging Only | | 2017 | | NEUROSURGERY [address] | [address] | (Request MRI) | | | | [address] | [place] [address] | | | | | [place] | [phone] | | | | | [address] | | | | | | [phone] | | | +--------+ + + + [...] documented as of this encounter Miscellaneous Notes Addendum Note - Ann-Marie Pa RN - 01/13/2017 10:22 AM PDT Addended by: ANN-MARIE PA on: 01/13/2017 10:22 Modules accepted: Orders elephone Encounte r - Ann-Marie Pa RN - 01/13/2017 10:21 AM PDTXR ordered; Please advise if patient prefe rs to have XR at [facility] or if we need to route order to [facility] elephone Encounter - Ann-Marie Pa RN - 01/13/2017 10:18 AM PDTLeft message to advise patient Dr. Garcia recommending appointment for further olena luation upon review of MRI as noted below. Requested return call to schedule. elephone Encounter - William Garcia MD - 01/11/2017 8:42 PM PDTHis MRI was re-reviewed today. The prior radiol ogy report does not notice his new L2 compression fracture or his increased signal at L1. I would advise he be worked in soon to see how he is doing with new lumbar x-rays AP/Lat at that appointment. William Garcia elephone Encounter - Jenn Lincoln Web Design Instructor - 11/29/2016 8:56 AM PDTImaging available on [employer]. Marifer ctronically signed by Jenn Rascon Web Design Instructor at 11/29/2016 8:57 AM PDTTelepho ne Encounter - Imelda Marcos - 11/26/2016 10:30 AM PDTImaging results letter sent to clive spain's home address. e lephone Encounter - Lila Grace Web Design Instructor - 11/25/2016 10:40 AM PDT----- Message from Jesus Roberts Asst sent at 11/12/2016 12:15 PST ----- Regarding: YAM: REQUESTING IMAGING TO I-SITE Lumbar spine MRI w/wo contrast scheduled at [facility] 11/19/16. Request imaging from facility once completed. Route to MD once completed for review. Letter/Telephone follow-up. document ed in this encounter Plan of Treatment + +---------+--------+ + + | Name | Type | Priori | Associated Diagnoses | Order Schedule | | | | ty | | | + +---------+--------+ + + | XR Lumbar Spine 2 or | Imaging | Routin | Abnormal MRI, | Expected: | | 3 Vw | | e | lumbar spine | 01/13/2017, Expires: | | | | | | 01/13/2018 | + +---------+--------+ + + documented as of this encounter Visit Diagnoses + + | Diagnosis | + + | Abnormal MRI, lumbar spine - Primary Other nonspecific (abnormal) findings on | | radiological and other examinations of body structure | + + documented in this encounter"
--- OUTSIDE RECORDS SUMMARY | ~2020-06-26 | XMS | Encounter Summary ---
Demographics + + + | Address | [address] | | | [place] [address] | + + + | Home Phone [...] + + + | Author | [facility] | | | and [place] | + + + | Organization | [facility] | | [...] [place] | | | | | [address] | | + + + + + Care Team Providers + +------+ + | Care Medical Records Coder Name | Role | Phone | + +------+ + | Almas Licea MD | PCP | | + +------+ + Encounter Details +--------+ + + + + | Date | Type | Department | Care Team | Description | +--------+ + + + + | 01/12/ | Orders Only | [facility] [place] | Judy Downey S, | Lumbar spondylosis, | | 2014 | | PHYSIATRY [address] | LAW OFFICE ASSISTANT | unspecified spinal | | | | [address] | | osteoarthritis | | | | [place], [place] | | (Primary Dx); | | | | [address] | | Trochanteric | | | | [phone] | | bursitis of right | | [...] Facet Steroid Injections and Right Trochanteric | [facility] | | Bursa Injection Diagnosis: Lumbar Spondylosis and Trochanteric | [facility] | | Bursitis ICD-9 Codes 721.3 and 726.5 Kevin Gutierrez [facility] | | presents to the fluoroscopy suite [...] + | [facility] | [address] | [place], [place] | [phone] | | [facility] | | [address] | | | - IMAGING | | | | + + + + + documented in this encounter Visit Diagnoses + + | Diagnosis | + + | Lumbar spondylosis, unspecified spinal osteoarthritis - Primary | + + | Trochanteric bursitis of right hip Enthesopathy of hip region | + + documented in this encounter"
--- OUTSIDE RECORDS SUMMARY | ~2020-06-26 | XMS | Encounter Summary ---
Demographics + + + | Address | [address] | | | [place] [address] | + + + | Home Phone | | + + + | Preferred Language | Unknown | + + + | Marital Status | | + + + | Anabaptism Affiliation | Unknown | + + + | Race | White | + + + | Ethnic Group | Not or | + + + Author + + + | Author | [facility] | | | and [place] | + + + | Organization | [facility] | | | and [place] | + + + | Address | Unknown | + + + | Phone | Unavailable | + + + Support + + + + + | Name | Relationship | Address | Phone | + + + + + | Willam Aleman | ECON | [address] | | | | | [place] | | | | | [address] | | + + + + + Care Team Providers + +------+ + | Care Bias Cutting Machine Operator Vertical Name | Role | Phone | + +------+ + | Harris Sauceda MD | PCP | | + +------+ + Reason for Visit + + + | Reason | Comments | + + + | Pre-op Exam | Right foot gastrocnemius release,and release of flexor tendons, | | | and release hallucis adductor DOS 05/19/19 | + + + | Foot Pain | | + + + Encounter Details +--------+---------+ + + + | Date | Type | Department | Care Team | Description | +--------+---------+ + + + | 05/10/ | Office | [facility] | Gerardo Leach | Pre-op testing | | 2019 | Visit | ORTHOPEDIC SURGERY | MD Gumaro [address] | (Primary Dx); Right | | | | [address] | [place] | ankle pain, | | | | [place] | [address] | unspecified | | | | [address] | | chronicity; High | | | | [phone] | | cholesterol; | | | | | | Essential | | | | | | hypertension; | | | | | | Anticoagulated on | | | | | | Coumadin; | | | | | | Hemiparesis of right | | | | | | dominant side as | | | | | | late effect of | | | | | | cerebrovascular | | | | | | disease, unspecified | | | | | | cerebrovascular | | | | | | disease type (HCC) | +--------+---------+ + + + Social [...] + + + | Blood Pressure | 128/71 | 05/10/2019 11:05 AM | | | | | PDT | | + + + + + | Pulse | 69 | 05/10/2019 11:05 AM | | | | | PDT | | + + + + + | Temperature | 36.6 C (97.9 F) | 05/10/2019 11:05 AM | | | | | PDT | | + + + + + | Respiratory Rate | 16 | 05/10/2019 11:05 AM | | | | | PDT | | + + + + + | Oxygen Saturation | 97% | 05/10/2019 11:05 AM | | | | | PDT | | + + + + + | Inhaled Oxygen | - | - | | | Concentration | | | | + + + + + | Weight | 64.4 kg (142 lb) | 05/10/2019 11:05 AM | | | | | PDT | | + + + + + | Height | 170.2 cm (5' 7") | 05/10/2019 11:05 AM | | | | | PDT | | + + + + + | Body Mass Index | 22.24 | 05/10/2019 11:05 AM | | | | | PDT [...] encounter Progress Notes Gerardo Leach MD - 05/10/2019 10:45 AM PDTFormatting of this note might be differen t from the original. History of present illness: Kevin is a [...] disorder CVA (cerebral vascular accident) ([facility]) Depression Dysphagia Edema Esophageal reflux Essential hypertension Facet arthritis of lumbar region 02/01/2015 Facial weakness late Cvd effects Foot drop, right foot GERD (gastroesophageal reflux disease) Hiatal hernia High cholesterol History of blood clots HLD (hyperlipidemia) Hypercholesterolemia Idiopathic retroperitoneal fibrosis Involuntary movements Lumbago Other muscle spasm Poor circulation RLS (restless legs syndrome) Spastic hemiplegia affecting right dominant side (HCC) Stroke ([facility]) right sided weakness Trochanteric bursitis of [...] mplied other than that of diligent effort. Rosalio Mckeon P T - 05/10/2019 10:45 AM PDTPM[facility] [place] [facility] [address] [place] [phone] Physical Therapy Preoperative Orthopedic Appointment Date: 05/10/2019 Patient Information Patient Name: Kevin Aleman Sr. Date of : 1945 Age: 73 y.o. Based upon patient s current preoperative status, the predicted discharge pathway is home with outpatient therapy. He will start once cleared by Dr. Leach. Patient was instructed in the use of a front wheeled walker with toe touch weight bearing f or post surgical ambulation. He returned safe demonstration and already has a walker at home and was instructed to bring it on the day of surgery. Electronically signed by: Rosalio Harrison PT, 05/10/2019 12:22 Patient Name: Kevin Aleman ./: 1945/ documented in this enco unter Plan of Treatment Not on filedocumented as of this encounter Procedures + +--------+ + + + | Procedure Name | Priori | Date/Time | Associated Diagnosis | Comments | | | ty | | | | + +--------+ + + + | ECG 12 LEAD | Routin | 05/10/2019 | Pre-op testing | Results for this | | | e | 11:10 AM | Right ankle pain, | procedure are in the | | | | PDT | unspecified | results section. | | | | | chronicity High | | | | | | cholesterol | | | | | | Essential | | | | | | hypertension | | + +--------+ + + + documented in this encounter Results Protime INR (05/10/2019 11:52 AM PDT) + + + + + + | Component | Value | Ref Range | Performed | Pathologist | | | | | At | Signature | + + + + + + | Prothrombin | 12.5 | 11.3 - 13.9 | [facility] | | | Time | | seconds | [facility] | | | | | | [facility] | | | | | | C[facility] - | | | | | | LABORATORY | | + + + + + + | INR | 0.9Comment: Usual Oral | 0.9 - 1.1 | [facility] | | | | Anticoagulation [...] [address] | [place] | [phone] | | [facility] | | [address] | | | - LABORATORY | | | | + + + + + PTT (05/10/2019 11:52 AM PDT) + +-------+ + + + | Component | Value | Ref Range | Performed | Pathologist | | | | | At | Signature | + +-------+ + + + | aPTT | 29 | 22 - 36 seconds | [facility] | | | | | [...] | + + + + + | [facility] | [address] | [place] | [phone] | | [facility] | | [address] | | | - LABORATORY | | | | + + + + + CBC with Differential (05/10/2019 11:52 AM PDT) + + + + + + | Component | Value | Ref Range | Performed | Pathologist | | | | | At | Signature | + + + + + + | White Blood | 4.7 | 4.0 - 11.0 K/uL | [facility] | | | Cells | | | [facility] | | | | | [facility] | | | | | | CENTER - | | | | | | LABORATORY | | + + + + + + | Red Blood | 4.86 | 4.30 - 5.70 | [facility] | | | Cells | | M/uL | [facility] | | | | | | MEDICAL | | | | | | CENTER - | | | | | | LABORATORY | | + + + + + + | Hemoglobin | 13.8 | 13.5 - 18.0 | [facility] | | | | | g/dL | [facility] | | | | | | MEDICAL | | | | | | CENTER - | | | | | | LABORATORY | | + + + + + + | Hematocrit | 42.7 | 40.0 - 51.0 % | [facility] | | | | | [facility] | | | | | [facility] | | | | | | C[facility] - | | | | | | LABORATORY | | + + + + + + | MCV | 87.9 | 83.0 - 101.0 fL | [facility] | | | | | | [facility] | | | | | | MEDICAL | | | | | | CENTER - | | | | | | LABORATORY | | + + + + + + | MCH | 28.4 | 28.0 - 35.0 pg | [facility] | | | | | | [facility] | | | | | | MEDICAL | | | | | | CENTER - | | | | | | LABORATORY | | + + + + + + | MCHC | 32.3 | 32.0 - 36.0 | [facility] | | | | | g/dL | [facility] | | | | | | MEDICAL | | | | | | CENTER - | | | | | | LABORATORY | | + + + + + + | RDW-CV | 13.9 | <15.0 % | [facility] | | | | | | [facility] | | | | | | MEDICAL | | | | | | CENTER - | | | | | | LABORATORY | | + + + + + + | RDW-SD | 44.9 | 35.1 - 46.3 fL | [facility] | | | | | | [facility] | | | | | | MEDICAL | | | | | | CENTER - | | | | | | LABORATORY | | + + + + + + | Platelet | 208 | 140 - 440 K/uL | [facility] | | | Count | | | [facility] | | | | | | MEDICAL | | | | | | CENTER - | | | | | | LABORATORY | | + + + + + + | MPV | 9.5 | 6.5 - 12.4 fL | [facility] | | | | | | [facility] | | | | | | MEDICAL | | | | | | CENTER - | | | | | | LABORATORY | | + + + + + + | % | 67.0 | 45.0 - 82.0 % | [facility] | | | Neutrophils | | | [facility] | | | | | | MEDICAL | | | | | | CENTER - | | | | | | LABORATORY | | + + + + + + | % | 16.5 (L) | 20.0 - 45.0 % | [facility] | | | Lymphocytes | | | [facility] | | | | | | MEDICAL | | | | | | CENTER - | | | | | | LABORATORY | | + + + + + + | % Monocytes | 12.0 | 4.0 - 12.0 % | [facility] | | | | | | [facility] | | | | | | MEDICAL | | | | | | CENTER - | | | | | | LABORATORY | | + + + + + + | % | 2.6 | 0.0 - 5.0 % | [facility] | | | Eosinophils | | | [facility] | | | | | | MEDICAL | | | | | | CENTER - | | | | | | LABORATORY | | + + + + + + | % Basophils | 1.7 (H) | 0.0 - 1.0 % | [facility] | | | | | | [facility] | | | | | | MEDICAL | | | | | | CENTER - | | | | | | LABORATORY | | + + + + + + | % Immature | 0.2 | 0.0 - 0.4 % | [facility] | | | Granulocyte | | | [facility] | | | s | | | MEDICAL | | | | | | CENTER - | | | | | | LABORATORY | | + + + + + + | Absolute | 3.14 | 1.80 - 8.50 | [facility] | | | Neutrophils | | K/uL | [facility] | | | | | | MEDICAL | | | | | | CENTER - | | | | | | LABORATORY | | + + + + + + | Absolute | 0.77 | 0.60 - 3.20 | [facility] | | | Lymphocytes | | K/uL | [facility] | | | | | | MEDICAL | | | | | | CENTER - | | | | | | LABORATORY | | + + + + + + | Absolute | 0.56 | 0.00 - 1.00 | [facility] | | | Monocytes | | K/uL | [facility] | | | | | | MEDICAL | | | | | | CENTER - | | | | | | LABORATORY | | + + + + + + | Absolute | 0.12 | 0.00 - 0.40 | [facility] | | | Eosinophils | | K/uL | [facility] | | | | | | MEDICAL | | | | | | CENTER - | | | | | | LABORATORY | | + + + + + + | Absolute | 0.08 | 0.00 - 0.10 | [facility] | | | Basophils | | K/uL | [facility] | | | | | | MEDICAL | | | | | | CENTER - | | | | | | LABORATORY | | + + + + + + | Absolute | 0.01 | 0.00 - 0.03 | [facility] | | | Immature | | K/uL | [facility] | | | Granulocyte | | | MEDICAL | | | s | | | CENTER - | | | | | | LABORATORY | | + + + + + + | % nRBC | 0 | 0 - 2 per 100 | [facility] | | | | | WBCs | [facility] | | | | | | MEDICAL | | | | | | CENTER - | | | | | | LABORATORY | | + + + + + + | Absolute | 0.00 | 0.00 - 0.01 | [facility] | | | nRBC | | K/uL | [facility] | [...] | [address] | [place] | [phone] | | [facility] | | [address] | | | - LABORATORY | | | | + + + + + ECG 12 lead (05/10/2019 11:10 AM PDT) + + + + + + | Component | Value | Ref Range | Performed | Pathologist | | | | | At | Signature | + + + + + + | VENTRICULAR | 62 | BPM | [facility] | | | RATE EKG | | | | | + + + + + + | ATRIAL RATE | 62 | BPM | [facility] | | + + + + + + | P-R | 194 | ms | [facility] | | | INTERVAL | | | | | + + + + + + | QRS | 84 | ms | [facility] | | | DURATION | | | | | + + + + + + | Q-T | 432 | ms | [facility] | | | INTERVAL | | | | | + + + + + + | Q-T | 438 | ms | [facility] | | | INTERVAL | | | | | | (CORRECTED) | | | | | + + + + + + | P WAVE AXIS | 59 | degrees | [facility] | | + + + + + + | QRS AXIS | -39 | degrees | [facility] | | + + + + + + | T AXIS | 36 | degrees | [facility] | | + + + + + + | INTERPRETAT | Normal sinus rhythmLeft | | [facility] | | | ION TEXT | axis deviationAbnormal | | | | | | ECGWhen compared with | | | | | | ECG of 08-JUL-2016 | | | | | | 11:03,QRS axis shifted | | | | | | left Confirmed by | | | | | | EMMA SCHMID MD ([id number]) | | | | | | on 05/11/2019 6:09:36 AM | | | | + + + + + + + + | Specimen | + + | | + + + + + | Narrative | Performed At | + + + | | | + + + + +---------+ + + | Performing | Address | City/State/Zipcode | Phone Number | | Organization | | | | + +---------+ + + | [facility] | | | | + +---------+ + + documented in this encounter Visit Diagnoses + + | Diagnosis | + + | Pre-op testing - Primary Preoperative examination, unspecified | + + | Right ankle pain, unspecified chronicity | + + | High cholesterol Pure hypercholesterolemia | + + | Essential hypertension Unspecified essential hypertension | + + | Anticoagulated on Coumadin Encounter for therapeutic drug monitoring | + + | 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
--- OUTSIDE RECORDS SUMMARY | ~2020-06-26 | XMS | Encounter Summary ---
Demographics + + + | Address | [address] | | | [place] [address] | + + + | Home Phone [...] + | Author | [facility] | | | and [...] [place] | | | | | [address] | | + + + + + Care Team Providers + +------+ + | Care Slide Developer Name | Role | Phone | + [...] + + | Closed | Specialty | Neurology | Diagnoses | Nicole, | Alan, | | | Services | | Spasticity | Almas | Hi Ruiz MD | | | Required | | Cerebral | MD Earnest | [address] | | | | | infarction | [address] | [place] | | | | | due to | [address] | [place], [place] | | | | | thrombosis | [place], | [address] Phone: | | | | | of left | [place] [address] | [phone] | | | | | carotid | Phone: | Fax: | | | | | artery (HCC) | [phone] | [phone] | | | | | Procedures | Fax: | | | | | | Referral | [phone] | | | | | | faxed | | | | | | | 04/04/15 | | | +--------+ + + + + + Reason for Visit + + + | Reason | Comments | + + + | Follow-up | Discuss new injection | + + + Encounter Details +--------+---------+ + + + | Date | Type | Department | Care Team | Description | +--------+---------+ + + + | 03/30/ | Office | [facility] | Almas Rivera | Facet syndrome, | | 2014 | Visit | REHABILITATION | MD Earnest [address] | lumbar (Primary Dx); | | | | MEDICINE [address] | [address] [place] | Spasticity; Greater | | | | [address] [place] | [place] [address] | trochanteric | | | | [place] [address] | [phone] | bursitis of right | | | | [phone] | | hip; Cerebral | | | | | | infarction due to | | | | | | thrombosis of left | | | | | | carotid artery (HCC) | +--------+---------+ + + + Social [...] + + + | Blood Pressure | 135/88 | 03/30/2015 2:10 PM | | | | | PDT | | + + + + + | Pulse | 107 | 03/30/2015 2:10 PM | | | | | PDT | | + + + + + | Temperature | - | - | | + + + + + | Respiratory Rate | 16 | 03/30/2015 2:10 PM | | | | | PDT | | + + + + + | Oxygen Saturation | - | - | | + + + + + | Inhaled Oxygen | - | - | | | Concentration | | | | + + + + + | Weight | 64.4 kg (142 lb) | 03/30/2015 2:10 PM | | | | | PDT | | + + + + + | Height | 167.6 cm (5' 6") | 03/30/2015 2:10 PM | | | | | PDT | | + + + + + | Body Mass Index | 22.92 | 03/30/2015 2:10 PM | | | | | PDT | | + + + + + documented in this encounter Patient Instructions Patient Instructions Almas Rivera MD - 03/30/2015 3:[address] Paul wayne for your injections. Be sure and fill out the form about how well the injections hel ped or did not and send to us 2. I'll see you in 2 months if any questions or I have to see you for insurance purposes. 3. I'm referring you to Dr. Phillips for work up on your leg and walking problems.Electronicall y signed by Almas Rivera MD at 03/30/2015 3:09 PM PDT documented in this encounter Progress Notes Almas Rivera MD - 03/30/2015 3:43 PM PDTI spent over 40 minutes, face to face with the patient, half in problem solving and education regarding his recurrent problem of facet pain plus a new recent problem of leg weakness. He had an L3 5 facet injection on the right February 01, 2015 with excellent benefit, however the last month the pain is returned and is now a constant 8 9 on a scale of 10, 24/7. Thi s is especially bad in the morning. No radiation into the lower extremities, no numbness or tingling. However he does report "legs are weak". He reports he can only walk about 20 fe et at times then feels weak all over. He denies cramping in his legs with gait. He also re ports decreased balance and two falls injuring his right greater trochanter area, last one w cheesh-na ago. Thus he has 6 8 pain on the right greater trochanter. When he stands he almost falls and at times feels dizzy. Apparently Dr. Licea thought it wa s orthostasis and I agree and discussed this with the patient. He also has retroperitoneal fibrosis and I reviewed the abdominal CT scan of that as well a s his back x-ray, brain MRI, lumbar MRI. Blood pressure recently 120 135. He has increased back pain sitting or standing or walking. Limited sitting 30 minutes. Ga it is limited to only a few minutes with standing the same. Has a right AFO but doesn't use it when driving Physical exam He has a [place] crutch and circumduction the right leg with gait. However gait appears b oth antalgic as well as spastic. Right gluteal and hip abductors have moderate atrophy. Strength in the right lower extremi ty is 4 out of 5 for right hip and knee, 2 for ankle, left leg 4+ over 5. He can feel light touch in the lower extremities. However he has clonus in the right leg that is constant and 3 4 beats of clonus on the le ft. He also has increased tone right greater than left. Checking reflexes: right knee and ankle four, left 3, right elbow and brachioradialis 3, bu t left elbow and brachioradialis a 1 He is very tender in the right L3-5 area in the paraspinals into the right SI, right glutea l, right greater trochanter. 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 Asymmetric reflexes with bilateral increased tone in the lower extremities. I have referre d him to Dr. Phillips, neurology, for workup of brain versus cervical or thoracic myelopathy. Right greater trochanter bursitis, repeat injection "Leg weakness". Probably related to his leg spasticity Dizziness with standing: Orthostasis Plan Right L3-5 facet injections and right greater trochanter bursa injection. Referral to Dr. Phillips for his asymmetric reflexes and leg weakness that may be from the brain and spasticity versus myelopathy. Follow-up in 2 months. If his back pain returns he will probably need a referral to [place] for consideration of a fusion given his pain is severe 8 9 on a scale of 10 an d significantly decreases his function documented i n this encounter Plan of Treatment + + +--------+ + + | Name | Type | Priori | Associated Diagnoses | Order Schedule | | | | ty | | | + + +--------+ + + | * [facility] LIEBER[facility] | Outpatient | Routin | Spasticity | Ordered: 03/30/2015 | | Neurology - AMB | Referral | e | Cerebral infarction | | | Referral | | | due to thrombosis of | | | | | | left carotid artery | | | | | | ([facility]) | | + + +--------+ + + documented as of this encounter Visit Diagnoses + + | Diagnosis | + + | Facet syndrome, lumbar - Primary Other symptoms referable to back | + + | Spasticity Abnormal involuntary movements | + + | Greater trochanteric bursitis of right hip Enthesopathy of hip region | + + | 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
--- OUTSIDE RECORDS SUMMARY | ~2020-06-26 | XMS | Encounter Summary ---
Demographics + + + | Address | [address] | | | [place] [address] | + + + | Home Phone | | + + + | Preferred Language | Unknown | + + + | Marital Status | | + + + | Orthodox Affiliation | Unknown | + + + | Race | White | + + + | Ethnic Group | Not or | + + + Author + + + | Author | [facility] | | | and [place] | + + + | Organization | [facility] | | [...] [place] | | | | | [phone] | | + + + + + Care Team Providers + +------+ + | Care Remote Computer Terminal Operator Name | Role | Phone | + +------+ + | Almas Licea MD | PCP | | + +------+ + Reason for Visit +---------+ + | Reason | Comments | +---------+ + | Post Op | 4W PO | +---------+ + Encounter Details +--------+---------+ + + + | Date | Type | Department | Care Team | Description | +--------+---------+ + + + | 07/29/ | Office | [facility] | Matt Sandoval | Lumbar radiculopathy | | 2016 | Visit | NEUROSURGERY [address] | [address] | (Primary Dx); | | | | [address] [place], [place] | Lumbar facet | | | | [place] | [address] | arthropathy; Facet | | | | [phone] | | arthritis of lumbar | | | | [phone] | | region ([facility]); S/P | | | | | | lumbar fusion | +--------+---------+ + + + Social History [...] + + + | Blood Pressure | 142/86 | 07/29/2016 3:19 PM | | | | | PST | | + + + + + | Pulse | 70 | 07/29/2016 3:19 PM | | | | | PST [...] Weight | 63 kg (139 lb) | 07/29/2016 3:19 PM | | | | | PST | | + + + + + | Height | 167.6 cm (5' 6") | 07/29/2016 3:19 PM | | | | | PST | | + + + + + | Body Mass Index | 22.44 | 07/29/2016 3:19 PM | | | | | PST [...] of this encounter Patient Instructions Patient Instructions Matt Sandoval PA-C - 07/29/2016 4:28 PM PSTContinue to progre ss your activities as we discussed today. I would like you to continue with a 5 pound weigh t restriction. He may begin removing your lumbar brace while you are sleeping and while you are sitting. Please continue to use your lumbar brace whenever you are up and moving. Ple ase continue to use your walker as we discussed. I will see you back in 1 month in the offi ce documented in this encounter Progress Notes Matt Sandoval PA-C - 07/29/2016 4:34 PM PSTFormatting of this note might be differ ent from the original. Matt Sandoval PA-C [address] [facility], [address] [place] [address] FAX: NEUROSURGERY FOLLOW-UP CHIEF COMPLAINT: Chief Complaint Patient presents with Post Op 4W PO HISTORY OF PRESENT ILLNESS: The patient is a 71 y.o. male that had a lumbar fusion for rad iculopathy around 4 weeks ago. He returns and overall is doing fair. The patient complains of continued weakness. He has ongoing weakness in his right leg secondary to a CVA. He co mplains of pain in the left lateral abdominal area over his incision. He has a burning to t he skin in his medial and anterior legs. He states he has burning when he urinates and his left testicle hurts. The right side is unremarkable. He will be discussing this with his [facility] care provider. The patient uses a walker. He has been involved with home physical t herapy for a couple of days now. He was in rehab following surgery. He is only taking 2 pa in pills a day.. The patient has not been walking as much as directed. He is still taking pain medications at this point. The patient has had some issues with his surgical site. T he patient is extremely anxious and worried about his activities. He is afraid to do much b ecause he doesn't want to have to go through surgery again. CURRENT MEDICATIONS: Current Outpatient Prescriptions Medication Sig Dispense Refill aspirin 325 mg tablet atorvaSTATin (LIPITOR) 40 mg tablet Take 40 mg by mouth nightly. baclofen (LIORESAL) 10 mg tablet Take 1 tablet by mouth 2 times daily. 60 tablet 0 baclofen (LIORESAL) 20 mg tablet Take 1 tablet by mouth nightly. 30 tablet 0 citalopram (CELEXA) 40 mg tablet Take 40 mg by mouth Daily. finasteride (PROSCAR) 5 mg tablet Take 5 mg by mouth Daily. mycophenolate (CELLCEPT) 500 MG tablet as directed (Patient taking differently: Take 50 0 mg by mouth Daily.) omeprazole ([facility] OMEPRAZOLE) 20 mg TBEC as directed oxyCODONE (ROXICODONE) 5 mg tablet Take 1 tablet by mouth every 4 hours as needed for P ain. 50 tablet 0 warfarin (COUMADIN) 5 mg tablet Take 1.5 tablets by mouth Daily. No current facility-administered medications for this visit. ALLERGIES: Allergies Allergen Reactions Hydrocodone Itching Severe itching Acetaminophen Itching Diphenhydramine Itching Intense itching without rash. SOCIAL HISTORY: The patient reports that he quit smoking about 14 years ago. His smoking use included Ciga rettes. He started smoking about 44 years ago. He has a 30 pack-year smoking history. He has quit using smokeless tobacco. He reports that he does not drink alcohol or use illicit drug s. INTERIM PHYSICAL EXAMINATION: Blood pressure 142/86, pulse 70, height 1.676 m (5' 6"), weight 63.05 kg (139 lb). Body mas s index is 22.45 kg/(m^2). GENERAL: Kevin Aleman [...] and were reviewed with the patient today. There have been no interval changes since the immediate postoperative films . Complete fusion has not yet occurred, but this is normal and would not be expected at thi s time. ASSESSMENT: Encounter Diagnoses Name Primary? Lumbar radiculopathy Yes Lumbar facet arthropathy Facet arthritis of lumbar region ([facility]) S/P lumbar fusion Past Medical History Diagnosis Date GERD (gastroesophageal reflux disease) Depression High cholesterol Stroke ([facility]) right sided weakness Hypertension Back pain of thoracolumbar region 08/29/2012 Facet arthritis of lumbar region ([facility]) 02/01/2015 Trochanteric bursitis of right hip 02/01/2015 Poor circulation Adverse effect of anesthesia high blood pressure after stomach biopsy PLAN: Overall, the patient is doing Only fair. He has some ongoing weakness but mostly he is murphy ited by his failure and concern. The patient his and I had a very good and long discus bryce regarding this. He continues to be significantly hyperreflexive but this was present p rior to his surgery.. The patient does not see any improvements since his surgery.. Spent a great deal of time with the patient today informing him how he can slowly increase his activities as well as build his confidence. We talked about fall prevention. He will c ontinue to use his walker for safety concerns. He will continue with home physical therapy. When he is done with this we will provide him with an outpatient physical therapy referral I increased the patient s activities Allowing him to remove his lumbar brace while he is sleeping and while he is sitting. He will use it whenever he is up and moving around until we see him in the clinic. The patient should increase range of motion activities as tolerat ed. I would like the patient to advance slowly with this process and discussed this at [facility] during today's visit. I would also like the patient to continue with postoperative rehab ilitation and to advance with therapy as tolerated. We discussed that we can provide pain medications for up to 90 days after their surgical da te. We discussed the need to continue tapering pain medication. If they need longer term p ain medication, they should begin working on either pain management or with the primary care provider. I will see the patient back in 1 month to check on his progress. He will keep his 2 month appointment as well ELECTRONICALLY SIGNED BY: Matt Sandoval PA-C, 07/29/2016 16:34 documented in this encounter Plan of Treatment [...] spondylosis without myelopathy | + + | S/P lumbar fusion Arthrodesis status | + + documented in this encounter
--- OUTSIDE RECORDS SUMMARY | ~2020-06-26 | XMS | Encounter Summary ---
Demographics + + + | Address | [address] | | | [place] [address] | + + + | Home Phone | | + + + | Preferred Language | Unknown | + + + | Marital Status | | + + + | Confucianist Affiliation | Unknown | + + + | Race | White | + + + | Ethnic Group | Not or | + + + Author + + + | Author | [facility] | | | and [place] | + + + | Organization | [facility] | | [...] [place] | | | | | [address] | | + + + + + Care Team Providers + +------+ + | Care Steel Checker Name | Role | Phone | + +------+ + | Almas Licea MD | PCP | | + +------+ + Encounter Details +--------+ + + + + | Date | Type | Department | Care Team | Description | +--------+ + + + + | 07/06/ | Hospital | [facility] | Eduard Young, | Gait abnormality | | 2016 - | Encounter | MED CTR IR[facility] [address] | (Primary Dx); | | | | [place], | [address] | Cerebral thrombosis | | 07/15/ | | [place] [address] | [place] [address] | with cerebral | | 2016 | | [phone] | [phone] | infarction (HCC); | | | | | | Facet arthritis of | | | | | William Garcia MD | lumbar region (HCC); | | | | | [address] | Foot deformity, | | | | | [place] [address] | acquired, right; | | | | | [phone] | Mild persistent | | | | | | asthma with acute | | | | | | exacerbation; | | | | | | Hypoxia; Dysphagia | | | | | | as late effect of | | | | | | cerebrovascular | | | | | | disease; High | | | | | | cholesterol; | | | | | | Essential | | | | | | hypertension; | | | | | | Achalasia; Back pain | | | | | | of thoracolumbar | | | | | | region; Chronic | | | | | | anticoagulation; | | | | | | Hemiplegia, late | | | | | | effect of | | | | | | cerebrovascular | | | | | | disease (HCC); | | | | | | Lumbar | | | | | | radiculopathy; | | | | | | Neurogenic | | | | | | claudication; | | | | | | Spastic hemiplegia | | | | | | (HCC) | +--------+ + + + + Social [...] + + + | Blood Pressure | 92/68 | 07/15/2016 10:29 PM | | | | | PDT | | + + + + + | Pulse | 60 | 07/15/2016 9:40 PM | | | | | PDT | | + + + + + | Temperature | 36.2 C (97.2 F) | 07/15/2016 9:11 PM | | | | | PDT | | + + + + + | Respiratory Rate | 16 | 07/15/2016 9:11 PM | | | | | PDT | | + + + + + | Oxygen Saturation | 92% | 07/15/2016 9:11 PM | | | | | PDT | | + + + + + | Inhaled Oxygen | - | - | | | Concentration | | | | + + + + + | Weight | 68.2 kg (150 lb 6.4 | 2016 6:13 AM | | | | oz) | PDT | | + + + + + | Height | 165.1 cm (5' 5") | 07/07/2016 4:19 AM | | | | | PDT | | + + + + + | Body Mass Index | 25.03 | 07/07/2016 4:19 AM | | | | | PDT | | + + + + + documented in this encounter Medications [...] | as directed | | 0 | 09/14/20 | | | 50 mg tablet | [...] documented as of this encounter Progress Notes Yariel Berman MD - 07/15/2016 10:07 PM PDTFormatting of this note might be different fro m the original. [place], [place] HOSPITALIST PROGRESS NOTE Patient: Kevin Aleman . : 1945: Age: 71 y.o. MedRec: [id number] PCP: Almas Licea Admission date: 07/06/2016 Hospital day # : 9 Physician author: Yariel Berman MD Today: 07/15/2016 Allergies: Allergies Allergen Reactions Hydrocodone Itching Severe itching Acetaminophen Itching Diphenhydramine Itching Intense itching without rash. Current Medications: Current Facility-Administered Medications Medication Dose Route Frequency Provider Last Rate Last Dose albuterol 2.5 mg/3 mL nebulizer solution 2.5 mg 2.5 mg Nebulization RT Q4H PRN Baldo Young MD 2.5 mg at 07/12/16 0043 aluminum & magnesium hydroxide-simethicone (MAALOX PLUS REGULAR STRENGTH) 200-200-20 mg /5 mL suspension 30 mL 30 mL Oral Q6H PRN Eduard Young MD 30 mL at 07/08/16 1213 atorvaSTATin (LIPITOR) tablet 40 mg 40 mg Oral Nightly Eduard Young MD 40 mg at 07/15/16 204 baclofen (LIORESAL) tablet 10 mg 10 mg Oral BID Eduard Young MD 10 mg at 06/17 09/30 1403 baclofen (LIORESAL) tablet 20 mg 20 mg Oral Nightly Eduard Young MD 20 mg at 07/15/16 204 bisacodyl (DULCOLAX) EC tablet 5 mg 5 mg Oral Daily PRN Almas Rivera MD 5 mg at 07/12/16 1643 bisacodyl (DULCOLAX) suppository 10 mg 10 mg Rectal Daily PRN Eduard Young MD calcium carbonate (TUMS) chewable tablet 1,000 mg 1,000 mg Oral Q2H PRN Eduard santa MD 1,000 mg at 07/14/16 0338 citalopram (celeXA) tablet 40 mg 40 mg Oral Daily Eduard Young MD 40 mg at 0912 cyclobenzaprine (FLEXERIL) tablet 10 mg 10 mg Oral Q8H PRN Eduard Young MD 10 mg at 07/09/16 1813 docusate sodium (COLACE) capsule 100 mg 100 mg Oral BID PRN Eduard Young MD 1 00 mg at 07/13/16 2239 enoxaparin (LOVENOX) 40 mg/0.4 mL injection 40 mg 40 mg Subcutaneous Daily Katelynn Perez PHARMD 40 mg at 07/15/16 09 finasteride (PROSCAR) tablet 5 mg 5 mg Oral Daily Eduard Young MD 5 mg at 09 gabapentin (NEURONTIN) capsule 300 mg 300 mg Oral TID Eduard Young MD 300 mg at 07/15/162042 guaiFENesin (ROBITUSSIN) 100 mg/5 mL liquid 200 mg 200 mg Oral Q4H PRN Chan jorge MD lactulose liquid 30 mL 30 mL Oral Daily PRN Eduard Young MD magnesium hydroxide (MILK OF MAGNESIA) 400 mg/5 mL suspension 30 mL 30 mL Oral Nightly PRN Eduard Young MD menthol (HALLS COUGH DROP) lozenge 1 lozenge 1 lozenge Buccal Q1H PRN Chan Arzate MD 1 lozenge at 07/07/162155 miconazole (MICATIN) 2% powder Topical BID Eduard Young MD mycophenolate (CELLCEPT) capsule 500 mg 500 mg Oral QAM Eduard Young MD 500 m g at 07/15/16911 nystatin (MYCOSTATIN) cream Topical BID Eduard Young MD ondansetron (ZOFRAN ODT) disintegrating tablet 4 mg 4 mg Oral Q6H PRN Eduard fernandez MD oxyCODONE (ROXICODONE) tablet 2.5 mg 2.5 mg Oral Q4H PRN Yariel Berman MD pantoprazole (PROTONIX) DR tablet 40 mg 40 mg Oral QAM AC Eudard Young MD 40 mg at 07/15/16 0609 pharmacy to dose warfarin Other Pharmacy Consult William Garcia MD polyethylene glycol (MIRALAX) powder 17 g 17 g Oral Daily PRN Eduard Young MD potassium chloride (K-DUR) ER tablet 20 mEq 20 mEq Oral BID Eduard Young MD 2 0 mEq at 07/15/162042 senna (SENOKOT) tablet 8.6 mg 8.6 mg Oral Nightly PRN Eduard Young MD 8.6 mg at 07/13/162238 sodium chloride 0.9% (NS) bolus 500 mL 500 mL Intravenous Once Yariel Berman MD 999 mL/hr at 07/15/162157 500 mL at 07/15/162157 tiZANidine (ZANAFLEX) tablet 4 mg 4 mg Oral Nightly Eduard Young MD 4 mg at 1 1833 traZODone (DESYREL) tablet 25 mg 25 mg Oral Nightly PRN Eduard Young MD 25 mg at 07/15/162045 warfarin (COUMADIN) tablet 7.5 mg 7.5 mg Oral Daily - Warfarin Job Moreira, PHARMD 7.5 mg at 07/15/161833 Current Infusions: Objective Data Hematology and anemia No results for input(s): WBC, HGB, HCT, PLT, NEUPCT, MONPCT in the last 168 hours. Invalid input(s): EOSPCT, NEUABC Recent Labs Lab 07/15/16 0603 07/14/16 0625 07/13/162127 PROTIME 20.3* 20.7* 20.1* INR 1.69* 1.73* 1.67* No results for input(s): IRON, TIBC, PCTSAT, FERRITIN, TSH, [id number], FOLATE in the last 168 hours. Inflammatory markers No results for input(s): LACTATE, PROCALCITONI, CRP, ESR in the last 168 hours. Chemistry Recent Labs Lab 07/14/16 0846 07/10/16 0523 GLU 101 100 NA 135* 135* K 4.2 3.6 CL 102 102 CO2 26 28 ANIONGAP 7 5 BUN 6* 5* CREA 0.83 0.77 GFRNONAA >60 >60 CALCIUM 8.8 8.2* No results for input(s): MG, [...] ABG No results for input(s): PHART, PO2ART, ZBK0VYY, KWV6WNJ, BEART, R0RIPLYX in the last 168 h ours. No results for input(s): SPECSOURCE, PHPOCB, PCO2, PO2, HCO3, TCO2, BEART, [id number] in the last 168 hours. Drug of overdose and abuse No results for input(s): ALCOHOL, ACTMN, SALICYLATE in the last 168 hours. No results for input(s): AMPHEQUAL, BARBITURATE, BENZSCR, CANNIBSCR, AMPHETAMINE, METHADSCR , OPIATESCR in the last 168 hours. Urinalysis Recent Labs Lab 07/14/16 1214 GLUCOSEU Negative Point of care glucose Recent Labs Lab 07/13/165 POCGLU 109 Micro results (more choices using dot micro) Microbiology Results (72 hrs) No results found for the last 72 hours. Radiology results (more choices using dot risresults) Xr Chest Ap Portable 2016 EXAM: XR CHEST AP PORTABLE dated 07/13/2016 9:54 PM HISTORY: Increased SOB an d prior CXR had air space opacity. Comparison: 07/07/2016 and 06/21/2016 TECHNIQUE: A single portable view of the chest. FINDINGS: The lungs are symmetrically aerated. Lung vo lumes are low. Interval resolution of the basilar opacity in the right lung. There are no large pleural effusions. There is no pneumothorax. Mild cardiomegaly. No acute osseous ab normalities. Contrast seen within the colon. IMPRESSION - Interval resolution of the righ t lung base parenchymal opacity. Dictated and Signed by: Saji Waldron MD Electronical ly signed: 2016 9:18 AM Serial weights: Filed Weights: 07/07/16 0419 07/14/16 0613 Weight: 68.4 kg (150 lb 12.7 oz) 68.221 kg (150 lb 6.4 oz) Most recent weight: Input and output 2 shifts and 3 shifts: Wt Readings from Last 1 Encounters: 07/14/16 68.221 kg (150 lb 6.4 oz) I/O last 24 Hours: In: 570 [P.O.:570] Out: 925 [Urine:925] I/O last 3 completed shifts: In: 1510 [P.O.:1510] Out: 1875 [Urine:1875] Vitals Ranges: Temp: [36.2 C (97.2 F)-36.5 C (97.7 F)] 36.2 C (97.2 F) Pulse: [60-85] 60 Resp: [16] 16 BP: (78-137)/(55-80) 78/58 mmHg Vitals: Temp: 36.2 C (97.2 F) BP: (!) 78/58 mmHg Pulse: 60 Resp: 16 Sp O2: 92 % SpO2 92 % on room air at flow rate 1L/min (dot meyvent) Subjective Patient seen for SBP 70s but recheck was about 80 Started after Oxycodone 5 mg vs unrelated and was dizzy with it No chest pain, mild SOB less than last time I met him, not cough, no N/V, He has just hint of chest discomfort at tail end of deep inspiration I think not suspicious for PE and is NOT on nor needing oxygen, has poor appetite and not taking po well No palomares Legs not tender ROS See above Exam General Looks tired speech was thick better after drinking water Cardiac RRR Extremities no oedema calves NT Lung mild right crackle Abdominal soft NT Neuro alert PER given cataract sgy changes, 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 Hypotension with dizziness No ischemic pain, has [...] SBP prior to bolus actually got 81 Addendum 1119 pm more lethargic am transferring to stepdown and getting Head CT (dot meytime meycritical meysign) Yariel Berman MD 07/15/2016 22:07 [facility] Reference. This is NOT part of the patient's formal assessment section. In the assessment or plan section of notes the author may date some of the subsections with a number such as "23" or "23" to indicate the date of that entry or event. In the example below the 1st line is the original entry and the subsequent lines indicate flowing updates to the subsection: Example assessment subsection (such as CHF or CP or Pneumonia) Patient is improved today with resolution of symptoms 24th Worse with recurrence of symptoms requiring further testing Portions of this chart may have been created with [employer] voice recognition software. Occasi onal wrong-word or sound-alike substitutions may have occurred due to the inherent murphy itations of voice recognition software. Please read the chart carefully and recognize, using context, where these substitutions have occurred oEduard crouch MD - 07/15/2016 5:36 PM PDT [id number] Daily Progress Note Date: 07/15/2016 ID/CC: Kevin Aleman . is a 70 y.o. male who was admitted to the inpatient acute rehabilitat ion for management of his L2-L5 back surgery for facet syndrome, acute asthma flare up and h ypoxia, plus his previous CVA with right sided mild weakness, now with bilateral medial thig h neuropathic pain Interval history: No o/v events, slept well. Reports he has new burning pain over his bilateral medial thigh s and also testicular pain, reports hypersensitivity to this area. Review of Systems - Constitutional - denies fevers/chills, denies fatigue Eyes - denies diplopia, denies double vision ENT denies sore throat, endorses swallowing difficulty Card - denies CP, denies palpitations Pulm - denies dyspnea, cough Abd - denies n/v, denies diarrhea/constipation Vascular - denies swelling, denies cold extremities Neuro - stable RUE and RLE weakness. Bilateral medial thigh pain. MSK: spasticity as above Endocrine - denies heat/cold intolerance Skin - denies open sores Psych - denies depression, anxiety - denies incontinence, dysuria, frequency All denies rash, denies pruritis Hematologic- denies easy bruising or bleeding, denies weight loss Current Meds: Current facility-administered medications: albuterol 2.5 mg/3 mL nebulizer solution 2.5 mg, 2.5 mg, Nebulization, RT Q4H PRN, Emma Young MD, 2.5 mg at 07/12/16 0043 aluminum & magnesium hydroxide-simethicone (MAALOX PLUS REGULAR STRENGTH) 200-200-20 m g/5 mL suspension 30 mL, 30 mL, Oral, Q6H PRN, Eduard Young MD, 30 mL at 07/08/16 121 3 atorvaSTATin (LIPITOR) tablet 40 mg, 40 mg, Oral, Nightly, Eduard Young MD, 40 mg at 07/14/162033 baclofen (LIORESAL) tablet 10 mg, 10 mg, Oral, BID, Eduard Young MD, 10 mg at 1 1403 baclofen (LIORESAL) tablet 20 mg, 20 mg, Oral, Nightly, Eduard Young MD, 20 mg at 07/14/162033 bisacodyl (DULCOLAX) EC tablet 5 mg, 5 mg, Oral, Daily PRN, Albaro Pedro, 5 mg at 07/12/16 1643 bisacodyl (DULCOLAX) suppository 10 mg, 10 mg, Rectal, Daily PRN, Eduard Young MD calcium carbonate (TUMS) chewable tablet 1,000 mg, 1,000 mg, Oral, Q2H PRN, Eduard Young MD, 1,000 mg at 07/14/16 0338 citalopram (celeXA) tablet 40 mg, 40 mg, Oral, Daily, Eduard Young MD, 40 mg at 07/15/16 0912 cyclobenzaprine (FLEXERIL) tablet 10 mg, 10 mg, Oral, Q8H PRN, Eduard Young MD, 10 mg at 07/09/16 1813 docusate sodium (COLACE) capsule 100 mg, 100 mg, Oral, BID PRN, Eduard Young MD , 100 mg at 07/13/16 2239 enoxaparin (LOVENOX) 40 mg/0.4 mL injection 40 mg, 40 mg, Subcutaneous, Daily, Lion Perez, FARHAT, 40 mg at 07/15/16 0912 finasteride (PROSCAR) tablet 5 mg, 5 mg, Oral, Daily, Eduard Young MD, 5 mg at 07/15/16 09 gabapentin (NEURONTIN) capsule 300 mg, 300 mg, Oral, TID, Eduard Young MD, 300 mg at 07/15/16 1402 guaiFENesin (ROBITUSSIN) 100 mg/5 mL liquid 200 mg, 200 mg, Oral, Q4H PRN, Chan Arzate MD lactulose liquid 30 mL, 30 mL, Oral, Daily PRN, Eduard Young MD losartan (COZAAR) tablet 50 mg, 50 mg, Oral, Daily, Eduard Young MD, 50 mg at 1 09 magnesium hydroxide (MILK OF MAGNESIA) 400 mg/5 mL suspension 30 mL, 30 mL, Oral, Nigh tly PRN, Eduard Young MD menthol (HALLS COUGH DROP) lozenge 1 lozenge, 1 lozenge, Buccal, Q1H PRN, Chan liao MD, 1 lozenge at 07/07/16 2156 miconazole (MICATIN) 2% powder, , Topical, BID, Eduard Young MD mycophenolate (CELLCEPT) capsule 500 mg, 500 mg, Oral, QAM, Eduard Young MD, 50 0 mg at 07/15/16 09 nystatin (MYCOSTATIN) cream, , Topical, BID, Eduard Young MD ondansetron (ZOFRAN ODT) disintegrating tablet 4 mg, 4 mg, Oral, Q6H PRN, Eduard mathews MD oxyCODONE (ROXICODONE) tablet 5-20 mg, 5-20 mg, Oral, Q4H PRN, Eduard Young MD, 5 mg at 07/15/16 1402 pantoprazole (PROTONIX) DR tablet 40 mg, 40 mg, Oral, QAM AC, Eduard Young MD, 40 mg at 07/15/16 0609 pharmacy to dose warfarin, , Other, Pharmacy Consult, William Garcia MD polyethylene glycol (MIRALAX) powder 17 g, 17 g, Oral, Daily PRN, Eduard Young MD potassium chloride (K-DUR) ER tablet 20 mEq, 20 mEq, Oral, BID, Eduard Young MD , 20 mEq at 07/15/16 0912 senna (SENOKOT) tablet 8.6 mg, 8.6 mg, Oral, Nightly PRN, Eduard Young MD, 8.6 mg at 07/13/16 2239 tiZANidine (ZANAFLEX) tablet 4 mg, 4 mg, Oral, Nightly, Eduard Young MD, 4 mg a t 07/14/16 1813 traZODone (DESYREL) tablet 25 mg, 25 mg, Oral, Nightly PRN, Eduadr Young MD, 25 mg at 07/14/16 0339 warfarin (COUMADIN) tablet 7.5 mg, 7.5 mg, Oral, Daily - Warfarin, ELBERT Baires MD Allergies: Allergies Allergen Reactions Hydrocodone Itching Severe itching Acetaminophen Itching Intolerance No active intolerances/contraindications Physical Exam: BP 134/80 mmHg | Pulse 77 | Temp(Src) 36.5 C (97.7 F) (Oral) | Resp 16 | Ht 1.651 m (5' 5") | Wt 68.221 kg (150 lb 6.4 oz) | BMI 25.03 kg/m2 | SpO2 92% Gen: AOx3, sitting in bed, NAD CVS: rrr, no m/r/g Resp: CTAB, no wheeze, crackles, or rhonchi Abd: Non-distended, non-tender, +BS : no pain with palpation of testicles Neuro: Allodynia with light palpation over medial thigh Labs: Recent Results (from the past 48 hour(s)) POC Glucose Result Value Ref Range Glucose, POC 109 70-150 mg/dL Protime INR Result Value Ref Range PROTIME 20.1 (H) 11.3-13.9 seconds INR 1.67 (H) 0.90-1.10 Protime INR Result Value Ref Range PROTIME 20.7 (H) 11.3-13.9 seconds INR 1.73 (H) 0.90-1.10 Basic Metabolic Panel Result Value Ref Range NA 135 (L) 136-149 mmol/L K 4.2 3.5-5.1 mmol/L CL 102 98-109 mmol/L CO2 26 24-31 mmol/L ANION GAP 7 3-16 mmol/L GLUCOSE 101 70-109 mg/dL BUN 6 (L) 7-18 mg/dL Creatinine, Serum/Plasma 0.83 0.60-1.30 mg/dL eGFR if not >60 >=60 mL/min/1.73m2 CALCIUM 8.8 8.3-10.5 mg/dL BUN/CREA 7.2 Urinalysis Result Value Ref Range COLOR Yellow Light Yellow, Yellow, Straw CLARITY Clear Clear PH UA 7.0 5.0-8.0 Specific [place] 1.004 1.001-1.030 PROTEIN UA Negative Negative BLOOD UA Negative Negative GLUCOSE UA Negative Negative KETONES UA Negative Negative BILIRUBIN UA Negative Negative NITRITE UA Negative Negative LEUKOCYTES ESTERASE UA Negative Negative UROBILINOGEN UA Negative 0.2 mg/dL, 1.0 mg/dL, Negative Protime INR Result Value Ref Range PROTIME 20.3 (H) 11.3-13.9 seconds INR 1.69 (H) 0.90-1.10 Most recent FIM scores: Report Date 07/15/2016 FIM BladderScore: 5 FIM [...] Body Score: 4 FIM Toileting Score: 5 Assessment/Plan: Mr. Aleman is a 70 year-old right-handed [...] doing well with therapies #Rehabilitation Medicine Recommendations: --Continue PT for strength, endurance, ROM, ambulation, balance --Continue OT for UE strengthening, functioning, and ROM; and training in ADLs, IADLs --Continue Speech therapy (UNDERWEAR TRIMMER) to follow for for cognitive/communication evaluation, Had b arium esophagram evidence of achalasia #SOB - new right basilar opacity, hospitalist team assisting PNA vs atelectasis. Also with desaturations when sleeping. 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 #Stroke 11 years ago presumably left MCA [...] baclofen 10mg BID, with up-titration to 10mg TI D early next week -Continue Atorvastatin 40mg daily -Continue baclofen 10mg TID -Continue tizanidine 4mg qhs -Continue losartan 50mg daily -Continue warfarin, INR 1.69 today -LMWH until therapeutic #hypoxia - has been noted when sleeping or just after napping. Will do overnight oximetry tonight to see if he qualifies for home O2 and to see if he needs a sleep study. -Overnight oximetry #rash on groin and face with satellite lesions - improving, patient reports this is long st and and he has seen multiple dermatologists for this so may not be fungal as initially th ought -Nystatin powder for groin -trial powder for lip, but if no improvement will trial steroid cream or ketoconazole. #Fall - on 07/09occurred this afternoon, patient had multiple falls at home which is why we admitted him. Unfortunately the fall was unwitnessed and he was on the ground for some isaiah e so the etiology is not clear. The fall occurred after he fell out of bed, there was no be d alarm on. Exam reassuring today. -STAT CT head - no acute changes -XR L-spine - no hardware changes, stable -bed alarm on at all times, if patient continues to be impulsive will consider a sitter #Achalasia - found of barium esophagram along with a small hiatal hernia, explains his subs ternal pain with eating -Referral to outpatient GI on discharge #Retroperotineal fibrosis - stable. -Continue Cellcept 500mg qday for now and will get clarification fo r PCP on why he is taking it. #History of depression - stable -Continue citalopram 40mg daily #Hypokalemia - resolved -Continue potassium chloride 20meq BID #Malnutrition - low albumin and protein -Nutrition consulted to assist Code Status: Full Code PAU: therapies were not confident his retained her training today so will see how jeffreyjimi clark does, if she is able to demonstrate what was tought today then we will d/c tomorrow if not may consider adding one day to admit for additional training. I spent 25 minutes face to face with the patient, with over 50% spent in counseling and/or coordination of care regarding the above plan. Signed: Eduard Young MD Portions of this chart may have been created with [employer] voice recognition software. Occasi onal wrong-word or sound-alike substitutions may have occurred due to the inherent murphy itations of voice recognition software. Please read the chart carefully and recognize, using context, where these substitutions have occurred. Charly White RN - 07/15/2016 4:25 PM PDTAssumed care from Nikki/RN, pt sleeping appears comfortable . Job Moore, PharmD - 07/15/2016 8:27 AM PDTFormatting of this note might be different from the origina l. WARFARIN PER PHARMACY PROTOCOL: Subjective/Objective: Kevin Aleman . is a 70 y.o. male admitted on 07/06/2016 for stroke and is receiving warfarin. Patient has a past medical history of GERD (gastroesophageal reflux disease); Dep ression; High cholesterol; Stroke (HCC); Hypertension; Back pain of thoracolumbar region (); Facet arthritis of lumbar region (HCC) (02/01/2015); Trochanteric bursitis of righ t hip (02/01/2015); Poor circulation; and Adverse effect of anesthesia. Goal INR: 2-3 []Initiation [x]chronic Home regimen: 27.5mg/week (2.5mg Mon, Wed, Fri and 5mg Tue, Th, Sat, and Sun) Managed by: Liquor Maker: None Drug Interactions: Citalopram 40mg (increase bleeding risk), Enoxaparin (increase bleeding risk), Trazodone (decrease INR), Pantoprazole (decrease INR) Recent Labs Lab 07/15/16 0603 07/14/16 0846 07/14/16 0625 07/13/168 07/10/16 0523 CREA -- 0.83 -- -- -- 0.77 INR 1.69* -- 1.73* 1.67* < > 1.18* < > = values [...] 1.08 1.18 1.26 1.41 1.6 1.73 1.69 Warfarin Dose - 2.5mg 2.5mg 5 mg 2.5 mg 5 mg 5 mg 5 mg 7.5 mg 5 mg 7.5mg Assessment: The INR is below the target range of 2-3 for stroke and has been increasing appropriatel y Dose increased by ~22% as pt is still not therapeutic yet. PTs INR decreased today regardless of the dose increase we have done. Will get AST/ALT t o assess liver function tomorrow. Also on enoxaparin 40mg SC daily. Was taking coumadin prior to surgery which was tempora rily held Pts last recorded home warfarin dose was 27.5 mg per week not 22.5mg per week per coumad in clinic (06/25) Plan: 1. Will increase warfarin dose to 7.5mg and adjust in response to the INR. 2. Medication profile reviewed for potential drug-drug interactions 3. Labs in am: INR, AST/ALT 4. Warfarin education received No. 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 Pharmacist to follow daily Warfarin Dosing Nomogram Warfarin Dosing Expectations Job Moreira PHARMD 07/15/2016 8:31 etiny, Jena Naik RP H - 2016 9:32 AM PDT WARFARIN PER PHARMACY PROTOCOL: Subjective/Objective: Kevin lAeman . is a 70 y.o. male admitted on 07/06/2016 for stroke and is receiving warfarin. Patient has a past medical history of GERD (gastroesophageal reflux disease); Dep ression; High cholesterol; Stroke (HCC); Hypertension; Back pain of thoracolumbar region (); Facet arthritis of lumbar region (HCC) (02/01/2015); Trochanteric bursitis of righ t hip (02/01/2015); Poor circulation; and Adverse effect of anesthesia. Goal INR: 2-3 []Initiation [x]chronic Home regimen: 27.5mg/week (2.5mg Mon, Wed, Fri and 5mg Tue, Thurs, Sat, and Sun) Managed by: Liquor Maker: None Drug Interactions: Citalopram 40mg (increase bleeding risk), Enoxaparin (increase bleeding risk), Trazodone (decrease INR), Pantoprazole (decrease INR) Recent Labs Lab 07/14/16 0846 07/14/16 0625 07/13/16 2128 07/13/16 0613 07/10/16 0523 CREA 0.83 -- -- -- -- 0.77 INR -- 1.73* 1.67* 1.60* < > 1.18* < > = values in this interval not displayed. Date 07/03/16 07/06/16 07/07/1607/08 Hgb 12.2 - 12.2 - - - - - - - Hct - - 35.4 - - - - - - - Platelets - - 145 - - - - - - - INR 1.03 - 0.98 0.97 1.08 1.18 1.26 1.41 1.6 1.73 Warfarin Dose - 2.5mg 2.5mg 5 mg 2.5 mg 5 mg 5 mg 5 mg 7.5 mg 5 mg Assessment: The INR is below the target range of 2-3 for stroke and has been increasing appropriatel y Dose increased by ~22% yesterday; anticipate faster rise to therapeutic range in next 24 -72 hrs Also on enoxaparin 40mg SC daily. Was taking coumadin prior to surgery which was tempora rily held Pts last recorded home warfarin dose was 27.5 mg per week not 22.5mg per week per coumad in clinic (06/25) Plan: 1. Gave 7.5 mg po yesterday followed by increase to 5 mg po daily every day of week (~22% i ncrease from 27.5 mg/week to 35 mg/week) 2. Medication profile reviewed for potential drug-drug interactions 3. Labs in am: INR 4. Warfarin education received No. 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 Pharmacist to follow daily Warfarin Dosing Nomogram Warfarin Dosing Expectations Electronically signed by: Jena Little RPH 07/13/2016 11:17 Viky Olguin RN - 07/13/2016 11:29 PM PDTPt currently awake, watching TV. Does not appear to be fatigued a ny longer. He has a more focused, alert look in his eyes. He is responding quicker to RN, and he states that he now feels fine. Dangled at bedside to void. Yariel Jaimes MD - 07/13/2016 9:10 PM PD T [facility] BRIEF NIGHT COVERAGE NOTE Patient: Kevin Aleman Sr. : 1945: Age: 70 y.o. MedRec: [id number] Admission date: 07/06/2016 Hospital day # : 7 Physician author: Yariel Berman MD Today: 07/13/2016 Patient woke up with a body jerk (that is really not syncope) and has slight SOB, was brief ly body numb, was on 1 liter NC and RN raised to 2L as was slight SOB and her exam non focal (does have some leg drift she says from old CVA) Car RRR Lung bilat IR left more than right no wheezing and JVP not elevated Cake Washer and bicep strong Face symm I had RN order tele (mostly was patient request) Looks like had CXR on with atelectasis vs aspration vsi infiltrate given his SOB and l ungs will check portable CXR Addendum CXR my view no overt pneumonia there is a quarter sized area of possible air space opacity at the level of the right hemidiaphragm Yariel Berman MD 07/13/2016 21:10 [facility] Dot phrase reference: VSHOSP (VS in table, last 24 hours) MEYLAB (various labs to pull in) DT (date and time) LABRCNTIP[K:3,Na:3 (last 3 sets of labs using potassium and sodium as examples) HGB HCT PLT INR GLU POCGLU Na K BUN CREA, CALCIUM TROPONINI BNP DIGOXIN DDIMERQUANT Portions of this chart may have been created with [employer] voice recognition software. Occasi onal wrong-word or sound-alike substitutions may have occurred due to the inherent murphy itations of voice recognition software. Please read the chart carefully and recognize, using context, where these substitutions have occurred Viky Olguin RN - 07/13/2016 9:03 PM PDTAt 20:20 pt stated he had SOB, no chest pressure, felt a body jolt /shake while sleeping then woke up feeling numb all over and blacked out for a "couple of se conds." Denies numbness or tingling, arms and legs 5/5, strong meat carrier and feet flexion. LSC , HRR, BT hyperactive, last BM 07/13. HOB raised, placed on 2L O2 via NC, SpO2 96%. Dr. Me vinson notified, neuro checks q 4 hours this night ordered, and RT to visit. RT visited pt. P ERRLA, right leg drift from old CVA per pt, rest of neuro assessment WNL. Pt also appears t o be quite fatigued and states that he's extremely tired. etiny, Jena Naik [facility] - 07/13/2016 11:17 AM PDT WARFARIN PER PHARMACY PROTOCOL: Subjective/Objective: Kevin Aleman . is a 70 y.o. male admitted on 07/06/2016 for stroke and is receiving warfarin. Patient has a past medical history of GERD (gastroesophageal reflux disease); Dep ression; High cholesterol; Stroke (HCC); Hypertension; Back pain of thoracolumbar region (); Facet arthritis of lumbar region (HCC) (02/01/2015); Trochanteric bursitis of righ t hip (02/01/2015); Poor circulation; and Adverse effect of anesthesia. Goal INR: 2-3 []Initiation [x]chronic Home regimen: 27.5mg/week (2.5mg Mon, Wed, Fri and 5mg Tue, Th, Sat, and Sun) Managed by: Liquor Maker: None Drug Interactions: Citalopram 40mg (increase bleeding risk), Enoxaparin (increase bleeding risk), Trazodone (decrease INR) Recent Labs Lab 07/13/16 0613 07/12/16 0657 07/11/16 0636 07/10/16 0523 07/07/16 0609 CREA -- -- -- 0.77 -- 0.77 HGB -- -- -- -- -- 12.2* HCT -- -- -- -- -- 35.4* PLT -- -- -- -- -- 145 INR 1.60* 1.41* 1.26* 1.18* < > 0.98 < > = values in this interval not displayed. Date 07/03/16 07/06/16 07/07/1607/08 Hgb 12.2 - 12.2 - - - - - - Hct - - 35.4 - - - - - - Platelets - - 145 - - - - - - INR 1.03 - 0.98 0.97 1.08 1.18 1.26 1.41 1.6 Warfarin Dose - 2.5mg 2.5mg 5 mg 2.5 mg 5 mg 5 mg 5 mg 7.5 mg Assessment: The INR is below the target range of 2-3 for stroke and has been increasing appropriatel y INR increasing too slowly. Will give 7.5 mg today and change to 5 mg po daily every day of week. Also on enoxaparin 40mg SC daily. Was taking coumadin prior to surgery which was tempora rily held Pts last recorded home warfarin dose was 27.5 mg per week not 22.5mg per week per coumad in clinic (06/25) Plan: 1. Give 7.5 mg po today x 1 followed by 5 mg po daily every day of week. 2. Medication profile reviewed for potential drug-drug interactions 3. Labs in am: INR 4. Warfarin education received No. 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 Pharmacist to follow daily Warfarin Dosing Nomogram Warfarin Dosing Expectations Electronically signed by: Jena Little RP 07/13/2016 11:17 Job Moore, Pharm D - 07/12/2016 10:02 AM PDT WARFARIN PER PHARMACY PROTOCOL: Subjective/Objective: Kevin Aleman . is a 70 y.o. male admitted on 07/06/2016 for stroke and is receiving warfarin. Patient has a past medical history of GERD (gastroesophageal reflux disease); Dep ression; High cholesterol; Stroke (HCC); Hypertension; Back pain of thoracolumbar region (); Facet arthritis of lumbar region (HCC) (02/01/2015); Trochanteric bursitis of righ t hip (02/01/2015); Poor circulation; and Adverse effect of anesthesia. Goal INR: 2-3 []Initiation [x]chronic Home regimen: 27.5mg/week (2.5mg Mon, Wed, Fri and 5mg Tue, Thurs, Sat, and Sun) Managed by: Liquor Maker: None Drug Interactions: Citalopram 40mg (increase bleeding risk), Enoxaparin (increase bleeding risk), Trazodone (decrease INR) Recent Labs Lab 07/12/16 0657 07/11/16 0636 07/10/16 0523 07/07/16 0609 CREA -- -- 0.77 -- 0.77 HGB -- -- -- -- 12.2* HCT -- -- -- -- 35.4* PLT -- -- -- -- 145 INR 1.41* 1.26* 1.18* < > 0.98 < > = values in this interval not displayed. Date 07/03/16 07/06/16 07/07/1607/08 Hgb 12.2 - 12.2 - - - - - Hct - - 35.4 - - - - - Platelets - - 145 - - - - - INR 1.03 - 0.98 0.97 1.08 1.18 1.26 1.41 Warfarin Dose - 2.5mg 2.5mg 5 mg 2.5 mg 5 mg 5 mg 5 mg Assessment: The INR is below the target range of 2-3 for stroke and has been increasing appropriatel y A INR increase of 0.2 is acceptable. Also on enoxaparin 40mg SC daily. Was taking coumadin prior to surgery which was tempora rily held Pts last recorded home warfarin dose was 27.5 mg per week not 22.5mg per week per coumad in clinic (06/25) Plan: 1. Continue Warfarin dose to 5mg daily and adjust as INR increases. 2. Medication profile reviewed for potential drug-drug interactions 3. Labs in am: INR 4. Warfarin education received No. 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 Pharmacist to follow daily Warfarin Dosing Nomogram Warfarin Dosing Expectations Per P&T-approved Electronically signed by: Job Moreira PHARMD 07/12/2016 10:02 Lana, Eduard Irvin MD - 07/12/2016 8:30 AM PDT [id number] Daily Progress Note Date: 07/12/2016 ID/CC: Kevin Aelman Sr. is a 70 y.o. male who was admitted to the inpatient acute rehabilitat ion for management of his L2-L5 back surgery for facet syndrome, acute asthma flare up and h ypoxia, plus his previous CVA with right sided mild weakness, but moderate and worsened spas ticity. Interval history: No o/v events, slept well again last night. Continues to complain of right hip pain consis tent with spasticity, was improved yesterday but back to previous baseline today. Reports i mprovement with stretching with therapies. Review of Systems - Constitutional - denies fevers/chills, denies fatigue Eyes - denies diplopia, denies double vision ENT denies sore throat, endorses swallowing difficulty Card - denies CP, denies palpitations Pulm - denies dyspnea, cough Abd - denies n/v, denies diarrhea/constipation Vascular - denies swelling, denies cold extremities Neuro - stable RUE and RLE weakness MSK: spasticity as above Endocrine - denies heat/cold intolerance Skin - denies open sores Psych - denies depression, anxiety - denies incontinence, dysuria, frequency All denies rash, denies pruritis Hematologic- denies easy bruising or bleeding, denies weight loss Current Meds: Current facility-administered medications: albuterol 2.5 mg/3 mL nebulizer solution 2.5 mg, 2.5 mg, Nebulization, RT Q4H PRN, Emma Young MD, 2.5 mg at 07/12/16 0043 aluminum & magnesium hydroxide-simethicone (MAALOX PLUS REGULAR STRENGTH) 200-200-20 m g/5 mL suspension 30 mL, 30 mL, Oral, Q6H PRN, Eduard Young MD, 30 mL at 07/08/16 121 3 atorvaSTATin (LIPITOR) tablet 40 mg, 40 mg, Oral, Nightly, Eduard Young MD, 40 mg at 07/11/16 2127 baclofen (LIORESAL) tablet 10 mg, 10 mg, Oral, TID, Eduard Young MD, 10 mg at 1 1306 bisacodyl (DULCOLAX) EC tablet 5 mg, 5 mg, Oral, Daily PRN, Albaro Pedro, 5 mg at 07/12/16 1643 bisacodyl (DULCOLAX) suppository 10 mg, 10 mg, Rectal, Daily PRN, Eduard Young MD calcium carbonate (TUMS) chewable tablet 1,000 mg, 1,000 mg, Oral, Q2H PRN, Eduard Young MD, 1,000 mg at 07/11/16 0356 citalopram (celeXA) tablet 40 mg, 40 mg, Oral, Daily, Eduard Young MD, 40 mg at 07/12/16 0935 cyclobenzaprine (FLEXERIL) tablet 10 mg, 10 mg, Oral, Q8H PRN, Eduard Young MD, 10 mg at 07/09/16 1813 docusate sodium (COLACE) capsule 100 mg, 100 mg, Oral, BID PRN, Eduard Young MD , 100 mg at 07/12/16 1643 enoxaparin (LOVENOX) 40 mg/0.4 mL injection 40 mg, 40 mg, Subcutaneous, Daily, Lion Perez PHARMD, 40 mg at 07/12/16 0936 finasteride (PROSCAR) tablet 5 mg, 5 mg, Oral, Daily, Eduard Young MD, 5 mg at 07/12/16 0935 guaiFENesin (ROBITUSSIN) 100 mg/5 mL liquid 200 mg, 200 mg, Oral, Q4H PRN, Chan Arzate MD lactulose liquid 30 mL, 30 mL, Oral, Daily PRN, Eduard Young MD losartan (COZAAR) tablet 50 mg, 50 mg, Oral, Daily, Eduard Young MD, 50 mg at 1 0935 magnesium hydroxide (MILK OF MAGNESIA) 400 mg/5 mL suspension 30 mL, 30 mL, Oral, Nigh tly PRN, Eduard Young MD menthol (HALLS COUGH DROP) lozenge 1 lozenge, 1 lozenge, Buccal, Q1H PRN, Chan liao MD, 1 lozenge at 07/07/162155 miconazole (MICATIN) 2% powder, , Topical, BID, Eduard Young MD mycophenolate (CELLCEPT) capsule 500 mg, 500 mg, Oral, QAM, Eduard Young MD, 50 0 mg at 07/12/16 0936 nystatin (MYCOSTATIN) cream, , Topical, BID, Eduard Young MD ondansetron (ZOFRAN ODT) disintegrating tablet 4 mg, 4 mg, Oral, Q6H PRN, Eduard mathews MD oxyCODONE (ROXICODONE) tablet 5-20 mg, 5-20 mg, Oral, Q4H PRN, Eduard Young MD, 5 mg at 07/12/16 1807 pantoprazole (PROTONIX) DR tablet 40 mg, 40 mg, Oral, QAM AC, Eduard Young MD, 40 mg at 07/12/16 0638 pharmacy to dose warfarin, , Other, Pharmacy Consult, William Garcia MD polyethylene glycol (MIRALAX) powder 17 g, 17 g, Oral, Daily PRN, Eduard Young MD potassium chloride (K-DUR) ER tablet 20 mEq, 20 mEq, Oral, BID, Eduard Young MD , 20 mEq at 07/12/16 0936 senna (SENOKOT) tablet 8.6 mg, 8.6 mg, Oral, Nightly PRN, Eduard Young MD, 8.6 mg at 07/12/16 1643 tiZANidine (ZANAFLEX) tablet 4 mg, 4 mg, Oral, Nightly, Eduard Young MD, 4 mg a t 07/12/16 180 traZODone (DESYREL) tablet 25 mg, 25 mg, Oral, Nightly PRN, Eduard Young MD warfarin (COUMADIN) tablet 5 mg, 5 mg, Oral, Daily - Warfarin, Job Castrowilver, PHARMD, 5 mg at 07/12/16 2958 Allergies: Allergies Allergen Reactions Hydrocodone Itching Severe itching Acetaminophen Itching Intolerance No active intolerances/contraindications Physical Exam: BP 99/56 mmHg | Pulse 76 | Temp(Src) 36.8 C (98.2 F) (Oral) | Resp 18 | Ht 1.651 m (5' 5") | Wt 68.4 kg (150 lb 12.7 oz) | BMI 25.09 kg/m2 | SpO2 93% Gen: AOx3, sitting in bed, NAD CVS: rrr, no m/r/g Resp: CTAB, no wheeze, crackles, or rhonchi Abd: Non-distended, non-tender, +BS Neuro: Tone: severe spasticity in RLE MAS 4 at right knee and hip knees. Labs: Recent Results (from the past 48 hour(s)) Protime INR Result Value Ref Range PROTIME 16.1 (H) 11.3-13.9 seconds INR 1.26 (H) 0.90-1.10 Extra Green Top Tube Result Value Ref Range Extra Green Top Tube Done Extra Lavender Top Tube Result Value Ref Range Extra Lavender Top Tube Done Protime INR Result Value Ref Range PROTIME 17.6 (H) 11.3-13.9 seconds INR 1.41 (H) 0.90-1.10 Extra Lavender Top Tube Result Value Ref Range Extra Lavender Top Tube Done Extra Green Top Tube Result Value Ref Range Extra Green Top Tube Done Most recent FIM scores: Report Date 07/12/2016 FIM BladderScore: 5 FIM Bowel Score: 6 FIM Bed/Chair/Wheelchair Score: 5 FIM Toilet Transfer Score: 5 FIM Tub/Shower Transfer Score: 5 FIM Walk Score: 5 FIM Distance Walked(feet): 150 feet FIM Wheelchair Score: FIM Stairs Score :0 FIM Eating Score: 6 FIM Grooming Score: 5 FIM Bathing Score: 5 FIM Dressing Upper Body Score: 5 FIM Dressing Lower Body Score: 4 FIM Toileting Score: 5 Assessment/Plan: Mr. Aleman is a 70 year-old right-handed [...] doing well with therapies #Rehabilitation Medicine Recommendations: --Continue PT for strength, endurance, ROM, ambulation, balance --Continue OT for UE strengthening, functioning, and ROM; and training in ADLs, IADLs --Continue Speech therapy (UNDERWEAR TRIMMER) to follow for for cognitive/communication evaluation, Had b arium esophagram evidence of achalasia #SOB - new right basilar opacity, hospitalist team assisting PNA vs atelectasis. Also with desaturations when sleeping. Wheezing seems more upper respiratory as lungs sound clear -day 5 of 5 clindamycin for possible aspiration PNA -Continue ISS minimum qshift -Encourage patient to cough when wheezing if upper respiratory this should help to clear -Will do overnight oxemitry prior to d/c and recommend outpatient sleep study #L2-5 anterior and posterior fusion - Stable hardware on XR after fall -Continue PRN oxycodone -C-brace precautions #Stroke 11 years ago presumably left MCA [...] baclofen 10mg BID, with up-titration to 10mg TI D early next week -Continue Atorvastatin 40mg daily -Continue baclofen 10mg TID -Continue tizanidine 4mg qhs -Continue losartan 50mg daily -Continue warfarin, INR 1.41 today -LMWH until therapeutic #rash on groin and face with satellite lesions - improving, patient reports this is long st and and he has seen multiple dermatologists for this so may not be fungal as initially th ought -Nystatin powder for groin -trial powder for lip, but if no improvement will trial steroid cream or ketoconazole. #Fall - on 07/09occurred this afternoon, patient had multiple falls at home which is why we admitted him. Unfortunately the fall was unwitnessed and he was on the ground for some isaiah e so the etiology is not clear. The fall occurred after he fell out of bed, there was no be d alarm on. Exam reassuring today. -STAT CT head - no acute changes -XR L-spine - no hardware changes, stable -bed alarm on at all times, if patient continues to be impulsive will consider a sitter #Achalasia - found of barium esophagram along with a small hiatal hernia, explains his subs ternal pain with eating -Referral to outpatient GI on discharge #Retroperotineal fibrosis - stable. -Continue Cellcept 500mg qday for now and will get clarification fo r PCP on why he is taking it. #History of depression - stable -Continue citalopram 40mg daily #Hypokalemia - resolved -Continue potassium chloride 20meq BID #Malnutrition - low albumin and protein -Nutrition consulted to assist Code Status: Full Code PAU: 07/16/16 with 24hr supervision from family I spent 25 minutes face to face with the patient, with over 50% spent in counseling and/or coordination of care regarding the above plan. Signed: Eduard Young MD Portions of this chart may have been created with [employer] voice recognition software. Occasi onal wrong-word or sound-alike substitutions may have occurred due to the inherent murphy itations of voice recognition software. Please read the chart carefully and recognize, using context, where these substitutions have occurred. Eduard Schwartz MD - 07/11/2016 12:31 PM PDT . [facility] Daily Progress Note Date: 07/11/2016 ID/CC: Kevin Aleman . is a 70 y.o. male who was admitted to the inpatient acute rehabilitat ion for management of his L2-L5 back surgery for facet syndrome, acute asthma flare up and h ypoxia, plus his previous CVA with right sided mild weakness, but moderate and worsened spas ticity. Interval history: No o/v events, slept well last night (had not previous two nights). Continues to complain of RLE spasticity pain, reports it is improving with starting tizanidine and baclofen. Review of Systems - Constitutional - denies fevers/chills, denies fatigue Eyes - denies diplopia, denies double vision ENT denies sore throat, denies swallowing difficulty Card - denies CP, denies palpitations Pulm - denies dyspnea, cough Abd - denies n/v, denies diarrhea/constipation Vascular - denies swelling, denies cold extremities Neuro - stable RUE and RLE weakness MSK: spasticity as above Endocrine - denies heat/cold intolerance Skin - denies open sores Psych - denies depression, anxiety - denies incontinence, dysuria, frequency All denies rash, denies pruritis Hematologic- denies easy bruising or bleeding, denies weight loss Current Meds: Current facility-administered medications: albuterol 2.5 mg/3 mL nebulizer solution 2.5 mg, 2.5 mg, Nebulization, RT Q4H PRN, Emma Young MD, 2.5 mg at 07/07/162057 aluminum & magnesium hydroxide-simethicone (MAALOX PLUS REGULAR STRENGTH) 200-200-20 m g/5 mL suspension 30 mL, 30 mL, Oral, Q6H PRN, Eduard Young MD, 30 mL at 07/08/16 121 3 atorvaSTATin (LIPITOR) tablet 40 mg, 40 mg, Oral, Nightly, Eduard Young MD, 40 mg at 07/10/162058 baclofen (LIORESAL) tablet 10 mg, 10 mg, Oral, TID, Eduard Young MD, 10 mg at 1 0903 bisacodyl (DULCOLAX) EC tablet 5 mg, 5 mg, Oral, Daily PRN, Albaro Pedro, 5 mg at 07/06/162105 bisacodyl (DULCOLAX) suppository 10 mg, 10 mg, Rectal, Daily PRN, Eduard Young MD calcium carbonate (TUMS) chewable tablet 1,000 mg, 1,000 mg, Oral, Q2H PRN, Eduard Young MD, 1,000 mg at 07/11/16 0356 citalopram (celeXA) tablet 40 mg, 40 mg, Oral, Daily, Eduard Young MD, 40 mg at 07/11/16 0903 clindamycin (CLEOCIN) capsule 300 mg, 300 mg, Oral, 4 times per day, Mago Melendez MD, 300 mg at 07/11/16 0642 cyclobenzaprine (FLEXERIL) tablet 10 mg, 10 mg, Oral, Q8H PRN, Eduard Young MD, 10 mg at 07/09/16 1813 docusate sodium (COLACE) capsule 100 mg, 100 mg, Oral, BID PRN, Eduard Young MD enoxaparin (LOVENOX) 40 mg/0.4 mL injection 40 mg, 40 mg, Subcutaneous, Daily, Lion Perez PHARMD, 40 mg at 07/11/16 0905 finasteride (PROSCAR) tablet 5 mg, 5 mg, Oral, Daily, Eduard Young MD, 5 mg at 07/11/16 0903 guaiFENesin (ROBITUSSIN) 100 mg/5 mL liquid 200 mg, 200 mg, Oral, Q4H PRN, Chan Arzate MD lactulose liquid 30 mL, 30 mL, Oral, Daily PRN, Eduard Young MD losartan (COZAAR) tablet 50 mg, 50 mg, Oral, Daily, Eduard Young MD, 50 mg at 1 0904 magnesium hydroxide (MILK OF MAGNESIA) 400 mg/5 mL suspension 30 mL, 30 mL, Oral, Nigh tly PRN, Eduard Young MD menthol (HALLS COUGH DROP) lozenge 1 lozenge, 1 lozenge, Buccal, Q1H PRN, Chan liao MD, 1 lozenge at 07/07/16 2156 miconazole (MICATIN) 2% powder, , Topical, BID, Eduard Young MD mycophenolate (CELLCEPT) capsule 500 mg, 500 mg, Oral, QAM, Eduard Young MD, 50 0 mg at 07/11/16 0901 nystatin (MYCOSTATIN) cream, , Topical, BID, Eduard Young MD ondansetron (ZOFRAN ODT) disintegrating tablet 4 mg, 4 mg, Oral, Q6H PRN, Eduard mathews MD oxyCODONE (ROXICODONE) tablet 5-20 mg, 5-20 mg, Oral, Q4H PRN, Eduard Young MD, 10 mg at 07/11/16 0642 pantoprazole (PROTONIX) DR tablet 40 mg, 40 mg, Oral, QAM AC, Eduard Young MD, 40 mg at 07/11/16 0642 pharmacy to dose warfarin, , Other, Pharmacy Consult, William Garcia MD polyethylene glycol (MIRALAX) powder 17 g, 17 g, Oral, Daily PRN, Eduard Young MD potassium chloride (KLOR-CON) packet 20 mEq, 20 mEq, Oral, BID, Eduard Young MD , 20 mEq at 07/11/16 0905 senna (SENOKOT) tablet 8.6 mg, 8.6 mg, Oral, Nightly PRN, Eduard Young MD tiZANidine (ZANAFLEX) tablet 4 mg, 4 mg, Oral, Nightly, Eduard Young MD traZODone (DESYREL) tablet 25 mg, 25 mg, Oral, Nightly PRN, Eduard Young MD warfarin (COUMADIN) tablet 5 mg, 5 mg, Oral, Daily - Warfarin, Job Moreira, PHARMD Allergies: Allergies Allergen Reactions Hydrocodone Itching Severe itching Acetaminophen Itching Intolerance No active intolerances/contraindications Physical Exam: BP 124/74 mmHg | Pulse 89 | Temp(Src) 36.3 C (97.3 F) (Oral) | Resp 18 | Ht 1.651 m (5' 5") | Wt 68.4 kg (150 lb 12.7 oz) | BMI 25.09 kg/m2 | SpO2 95% Gen: AOx3, sitting in bed, NAD CVS: rrr, no m/r/g Resp: CTAB, no wheeze, crackles, or rhonchi Abd: Non-distended, non-tender, +BS Skin: vertical scrape over proximal right posterior forearm ~4cm wide and ~8cm long. MSK: no pain with right or left hip internal rotation, right hip pain with resisted left hi p flexion No cervical tenderness with palpation of spinous processes , painless ROM of neck Neuro: Motor function: Tone: severe spasticity in RLE MAS 3 at knees. MAS 0 at elbow. Contracture of right kne e to 10 degrees Labs: Recent Results (from the past 48 hour(s)) Protime INR Result Value Ref Range PROTIME 15.3 (H) 11.3-13.9 seconds INR 1.18 (H) 0.90-1.10 Basic Metabolic Panel Result Value Ref Range NA 135 (L) 136-149 mmol/L K 3.6 3.5-5.1 mmol/L CL 102 98-109 mmol/L CO2 28 24-31 mmol/L ANION GAP 5 3-16 mmol/L GLUCOSE 100 70-109 mg/dL BUN 5 (L) 7-18 mg/dL Creatinine, Serum/Plasma 0.77 0.60-1.30 mg/dL eGFR if not >60 >=60 mL/min/1.73m2 CALCIUM 8.2 (L) 8.3-10.5 mg/dL BUN/CREA 6.5 Extra Lavender Top Tube Result Value Ref Range Extra Lavender Top Tube Done Protime INR Result Value Ref Range PROTIME 16.1 (H) 11.3-13.9 seconds INR 1.26 (H) 0.90-1.10 Extra Green Top Tube Result Value Ref Range Extra Green Top Tube Done Extra Lavender Top Tube Result Value Ref Range Extra Lavender Top Tube Done Most recent FIM scores: Report Date 07/11/2016 FIM BladderScore: 5 FIM Bowel Score: 6 FIM Bed/Chair/Wheelchair Score: 5 FIM Toilet Transfer Score: 5 FIM Tub/Shower Transfer Score: 5 FIM Walk Score: 2 FIM Distance Walked(feet): 80 feet FIM Wheelchair Score: FIM Stairs Score :0 FIM Eating Score: 6 FIM Grooming Score: 5 FIM Bathing Score: 5 FIM Dressing Upper Body Score: 5 FIM Dressing Lower Body Score: 4 FIM Toileting Score: 5 Assessment/Plan: Mr. Aleman is a 70 year-old right-handed [...] doing well with therapies #Rehabilitation Medicine Recommendations: --Continue PT for strength, endurance, ROM, ambulation, balance --Continue OT for UE strengthening, functioning, and ROM; and training in ADLs, IADLs --Continue Speech therapy (UNDERWEAR TRIMMER) to follow for for cognitive/communication evaluation, Had b arium esophagram evidence of achalasia #SOB - new right basilar opacity, hospitalist team assisting PNA vs atelectasis. Wheezing seems more upper respiratory as lungs sound clear -Continue clindamycin -Continue ISS minimum qshift -Encourage patient to cough when wheezing if upper respiratory this should help to clear #L2-5 anterior and posterior fusion - Stable hardware on XR after fall -Continue PRN oxycodone -C-brace precautions #Stroke 11 years ago presumably left MCA [...] baclofen 10mg BID, with up-titration to 10mg TI D early next week -Continue Atorvastatin 40mg daily -Continue baclofen 10mg TID -Continue tizanidine 4mg qhs -Continue losartan 50mg daily -Continue warfarin, INR 1.26 today -LMWH until therapeutic #rash on groin and face with satellite lesions - improving -Nystatin powder for groin -trial powder for lip, but if no improvement will trial steroid cream or ketoconazole. #Fall - on 07/09occurred this afternoon, patient had multiple falls at home which is why we admitted him. Unfortunately the fall was unwitnessed and he was on the ground for some isaiah e so the etiology is not clear. The fall occurred after he fell out of bed, there was no be d alarm on. Exam reassuring today. -STAT CT head - no acute changes -XR L-spine - no hardware changes, stable -bed alarm on at all times, if patient continues to be impulsive will consider a sitter #Achalasia - found of barium esophagram along with a small hiatal hernia, explains his subs ternal pain with eating -Referral to outpatient GI on discharge #Retroperotineal fibrosis - stable. -Continue Cellcept 500mg qday for now and will get clarification fo r PCP on why he is taking it. #History of depression - stable -Continue citalopram 40mg daily #Hypokalemia - resolved -Continue potassium chloride 20meq BID #Malnutrition - low albumin and protein -Nutrition consulted to assist Code Status: Full Code PAU: 07/19/16 with 24hr supervision from family I spent 25 minutes face to face with the patient, with over 50% spent in counseling and/or coordination of care regarding the above plan. Signed: Eduard Young MD Portions of this chart may have been created with [employer] voice recognition software. Occasi onal wrong-word or sound-alike substitutions may have occurred due to the inherent murphy itations of voice recognition software. Please read the chart carefully and recognize, using context, where these substitutions have occurred. Jena Barrett RN - 07/11/2016 10:42 AM PDTWith patient's verbal permission, a copy of the Rehab Team Fabian arreola report from 07/09/16 was faxed to his PCP, Dr. Almas Licea, at [facility] [place] [facility] in [place], [place]. Job Santana PharmD - 07/11/2016 7:37 AM PDT WARFARIN PER PHARMACY PROTOCOL: Subjective/Objective: Kevin Aleman . is a 70 y.o. male admitted on 07/06/2016 for stroke and is receiving warfarin. Patient has a past medical history of GERD (gastroesophageal reflux disease); Dep ression; High cholesterol; Stroke (HCC); Hypertension; Back pain of thoracolumbar region (); Facet arthritis of lumbar region (HCC) (02/01/2015); Trochanteric bursitis of righ t hip (02/01/2015); Poor circulation; and Adverse effect of anesthesia. Goal INR: 2-3 []Initiation [x]chronic Home regimen: 27.5mg/week (2.5mg Mon, Wed, Fri and 5mg Tue, Th, Sat, and Sun) Managed by: Liquor Maker: None Drug Interactions: Citalopram 40mg (increase bleeding risk), Enoxaparin (increase bleeding risk), Trazodone (decrease INR) Recent Labs Lab 07/11/16 0636 07/10/16 0523 07/09/16 0506 07/07/16 0609 CREA -- 0.77 -- -- 0.77 HGB -- -- -- -- 12.2* HCT -- -- -- -- 35.4* PLT -- -- -- -- 145 INR 1.26* 1.18* 1.08 < > 0.98 < > = values in this interval not displayed. Date 07/03/16 07/06/16 07/07/1607/08 Hgb 12.2 - 12.2 - - - - Hct - - 35.4 - - - - Platelets - - 145 - - - - INR 1.03 - 0.98 0.97 1.08 1.18 1.26 Warfarin Dose - 2.5mg 2.5mg 5 mg 2.5 mg 5 mg 5 mg Assessment: The INR is below the target range of 2-3 for stroke and has been increasing appropriatel y Also on enoxaparin 40mg SC daily. Was taking coumadin prior to surgery which was tempora rily held Plan: 1. Pts last recorded home warfarin dose was 27.5 mg per week not 22.5mg per week per coumad in clinic (06/25) 2. Will increase dose to 5mg daily and adjust as INR increases. 3. Medication profile reviewed for potential drug-drug interactions 4. Labs in am: INR 5. Warfarin education received No. RIGGING FOREMAN 6. Pharmacist to follow daily Warfarin Dosing Nomogram Warfarin Dosing Expectations Per P&T-approved Electronically signed by: Job Moreira, PHARMPauly 07/11/2016 7:37 Sandeep Geronimo, PharmD - 07/10/2016 9:55 AM PD T WARFARIN PER PHARMACY PROTOCOL: Subjective/Objective: Kevin Aleman . is a 70 y.o. male admitted on 07/06/2016 for stroke and is receiving warfarin. Patient has a past medical history of GERD (gastroesophageal reflux disease); Dep ression; High cholesterol; Stroke (HCC); Hypertension; Back pain of thoracolumbar region (); Facet arthritis of lumbar region (HCC) (02/01/2015); Trochanteric bursitis of righ t hip (02/01/2015); Poor circulation; and Adverse effect of anesthesia. Goal INR: 2-3 []Initiation [x]chronic Home regimen: 22.5mg/week Managed by: Liquor Maker: None Drug Interactions: None NON-valvular AFIB patients: [id number] score (max 9): []CHF, []HTN, []Age > 75 (2), []DM, [] prior CVA,VTE (2), []OK,PAD, []Age 64-74, []Female Recent Labs Lab 07/10/16 0523 07/09/16 0506 07/08/16 0836 07/07/16 0609 CREA 0.77 -- -- 0.77 HGB -- -- -- 12.2* HCT -- -- -- 35.4* PLT -- -- -- 145 INR 1.18* 1.08 0.97 0.98 Date 07/03/16 07/06/16 07/07/1607/08 Hgb 12.2 - 12.2 - - - Hct - - 35.4 - - - Platelets - - 145 - - - INR 1.03 - 0.98 0.97 1.08 1.18 Warfarin Dose - 2.5mg 2.5mg 5 mg 2.5 mg 5 mg Assessment: The INR is below the target range of 2-3 for stroke and has started increasing appropria tely Also on enoxaparin 40mg SC daily. Was taking coumadin prior to surgery which was tempora rily held Plan: 1. Continue warfarin at a dose of 22.5 mg per week 2. Warfarin 2.5 mg po daily except 5 mg po daily on MoWe 3. Medication profile reviewed for potential drug-drug interactions 4. Labs in am: INR 5. Warfarin education received No. RIGGING FOREMAN 6. Pharmacist to follow daily Warfarin Dosing Nomogram Warfarin Dosing Expectations Per P&T-approved Electronically signed by: Sandeep Contreras PHARMD 07/10/2016 9:55 Eduard Schwartz MD - 07/09/2016 5:45 PM P DT [id number] Daily Progress Note Date: 07/09/2016 [facility] 70 y.[facility] male who was admitted to the inpatient acute rehabilitat ion for management of his L2-L5 back surgery for facet syndrome, acute asthma flare up and h ypoxia, plus his previous CVA with right sided mild weakness, but moderate and worsened spas ticity. Interval history: No o/v events, other than the scrapes on his forearm no apparent long standing effects of h is fall yesterday afternoon. Continues to have severe spasticity in the RLE, RUE improved. PT spoke with prosthetics today and they are going to attempt to adjust his AFO to correct for his ankle equinovarus deformity. Review of Systems - Constitutional - denies fevers/chills, denies fatigue Eyes - denies diplopia, denies double vision ENT denies sore throat, denies swallowing difficulty Card - denies CP, denies palpitations Pulm - denies dyspnea, cough Abd - denies n/v, denies diarrhea/constipation Vascular - denies swelling, denies cold extremities Neuro - stable RUE and RLE weakness MSK: spasticity as above Endocrine - denies heat/cold intolerance Skin - denies open sores Psych - denies depression, anxiety - denies incontinence, dysuria, frequency All denies rash, denies pruritis Hematologic- denies easy bruising or bleeding, denies weight loss Current Meds: Current facility-administered medications: albuterol 2.5 mg/3 mL nebulizer solution 2.5 mg, 2.5 mg, Nebulization, RT Q4H PRN, Emma Young MD, 2.5 mg at 07/07/162057 aluminum & magnesium hydroxide-simethicone (MAALOX PLUS REGULAR STRENGTH) 200-200-20 m g/5 mL suspension 30 mL, 30 mL, Oral, Q6H PRN, Eduard Young MD, 30 mL at 07/08/16 121 3 atorvaSTATin (LIPITOR) tablet 40 mg, 40 mg, Oral, Nightly, Eduard Young MD, 40 mg at 07/08/16 2111 baclofen (LIORESAL) tablet 10 mg, 10 mg, Oral, BID, Eduard Young MD, 10 mg at 1 1042 bisacodyl (DULCOLAX) EC tablet 5 mg, 5 mg, Oral, Daily PRN, Albaro Pedro, 5 mg at 07/06/162105 bisacodyl (DULCOLAX) suppository 10 mg, 10 mg, Rectal, Daily PRN, Eduard Young MD calcium carbonate (TUMS) chewable tablet 1,000 mg, 1,000 mg, Oral, Q2H PRN, Eduard Young MD, 1,000 mg at 07/08/16 0326 citalopram (celeXA) tablet 40 mg, 40 mg, Oral, Daily, Eduard Young MD, 40 mg at 07/09/16 1041 clindamycin (CLEOCIN) capsule 300 mg, 300 mg, Oral, 4 times per day, Mago Melendez MD, 300 mg at 07/09/16 1325 cyclobenzaprine (FLEXERIL) tablet 10 mg, 10 mg, Oral, Q8H PRN, Eduard Young MD, 10 mg at 07/07/16 0916 docusate sodium (COLACE) capsule 100 mg, 100 mg, Oral, BID PRN, Eduard Young MD enoxaparin (LOVENOX) 40 mg/0.4 mL injection 40 mg, 40 mg, Subcutaneous, Daily, Lion Perez, FARHAT, 40 mg at 07/09/16 1039 finasteride (PROSCAR) tablet 5 mg, 5 mg, Oral, Daily, Eduard Young MD, 5 mg at 07/09/16 1041 guaiFENesin (ROBITUSSIN) 100 mg/5 mL liquid 200 mg, 200 mg, Oral, Q4H PRN, Chan Arzate MD lactulose liquid 30 mL, 30 mL, Oral, Daily PRN, Eduard Young MD losartan (COZAAR) tablet 50 mg, 50 mg, Oral, Daily, Eduard Young MD, 50 mg at 1 1041 magnesium hydroxide (MILK OF MAGNESIA) 400 mg/5 mL suspension 30 mL, 30 mL, Oral, Nigh tly PRN, Eduard Young MD menthol (HALLS COUGH DROP) lozenge 1 lozenge, 1 lozenge, Buccal, Q1H PRN, Chan liao MD, 1 lozenge at 07/07/16 2156 miconazole (MICATIN) 2% powder, , Topical, BID, Eduard Young MD mycophenolate (CELLCEPT) capsule 500 mg, 500 mg, Oral, QAM, Eduard Young MD, 50 0 mg at 07/09/16 1041 nystatin (MYCOSTATIN) cream, , Topical, BID, Eduard Young MD ondansetron (ZOFRAN ODT) disintegrating tablet 4 mg, 4 mg, Oral, Q6H PRN, Eduard mathews MD oxyCODONE (ROXICODONE) tablet 5-20 mg, 5-20 mg, Oral, Q4H PRN, Eduard Young MD, 5 mg at 07/09/16 0104 pantoprazole (PROTONIX) DR tablet 40 mg, 40 mg, Oral, QAM AC, Eduard Young MD, 40 mg at 07/09/16 0622 pharmacy to dose warfarin, , Other, Pharmacy Consult, William Garcia MD polyethylene glycol (MIRALAX) powder 17 g, 17 g, Oral, Daily PRN, Eduard Young MD potassium chloride (K-DUR) ER tablet 20 mEq, 20 mEq, Oral, BID, Chan Arzate MD, 20 mEq at 07/09/16 1041 senna (SENOKOT) tablet 8.6 mg, 8.6 mg, Oral, Nightly PRN, Eduard Young MD traZODone (DESYREL) tablet 25 mg, 25 mg, Oral, Nightly PRN, MR x 1, Eduard Young MD warfarin (COUMADIN) tablet 2.5 mg, 2.5 mg, Oral, Once per day on Fri Sat * *AND [START ON 07/10/2016] warfarin (COUMADIN) tablet 5 mg, 5 mg, Oral, Once per day on Fri, Sandeep Contreras, PHARMD Allergies: Allergies Allergen Reactions Hydrocodone Itching Severe itching Acetaminophen Itching Intolerance No active intolerances/contraindications Physical Exam: BP 152/76 mmHg | Pulse 88 | Temp(Src) 37.3 C (99.1 F) (Oral) | Resp 20 | Ht 1.651 m (5' 5") | Wt 68.4 kg (150 lb 12.7 oz) | BMI 25.09 kg/m2 | SpO2 96% Gen: AOx3, sitting in bed, NAD CVS: rrr, no m/r/g Resp: CTAB, no wheeze, crackles, or rhonchi Abd: Non-distended, non-tender, +BS Skin: vertical scrape over proximal right posterior forearm ~4cm wide and ~8cm long. MSK: no pain with right or left hip internal rotation, right hip pain with resisted left hi p flexion No cervical tenderness with palpation of spinous processes , painless ROM of neck Neuro: Motor function: Tone: severe spasticity in RLE MAS 4 at knees. MAS 1+ at elbow. Contracture of right kn ee to 10 degrees Labs: Recent Results (from the past 48 hour(s)) Potassium Result Value Ref Range K 2.8 (L) 3.5-5.1 mmol/L Magnesium Result Value Ref Range MG 1.9 1.8-2.5 mg/dL Extra Lavender Top Tube Result Value Ref Range Extra Lavender Top Tube Done Protime INR Result Value Ref Range PROTIME 13.1 11.3-13.9 seconds INR 0.97 0.90-1.10 ECG 12 lead Result Value Ref Range INTERPRETATION TEXT Not Confirmed Protime INR Result Value Ref Range PROTIME 14.2 (H) 11.3-13.9 seconds INR 1.08 0.90-1.10 Extra Lavender Top Tube Result Value Ref Range Extra Lavender Top Tube Done Extra Green Top Tube Result Value Ref Range Extra Green Top Tube Done Most recent FIM scores: Report Date 07/09/2016 FIM BladderScore: 5 FIM Bowel Score: 6 FIM Bed/Chair/Wheelchair Score: 4 FIM Toilet Transfer Score: 1 FIM Tub/Shower Transfer Score: 5 FIM Walk Score: 2 FIM Distance Walked(feet): 75 feet FIM Wheelchair Score: FIM Stairs Score :2 FIM Eating Score: 6 FIM Grooming Score: 5 FIM Bathing Score: 5 FIM Dressing Upper Body Score: 5 FIM Dressing Lower Body Score: 3 FIM Toileting Score: 5 Assessment/Plan: Mr. Aleman is a 70 year-old right-handed [...] doing well with therapies #Rehabilitation Medicine Recommendations: --Continue PT for strength, endurance, ROM, ambulation, balance --Continue OT for UE strengthening, functioning, and ROM; and training in ADLs, IADLs --Continue Speech therapy (UNDERWEAR TRIMMER) to follow for for cognitive/communication evaluation, Had b arium esophagram today which demonstrated evidence of achalasia, will consult GI tomorrow #SOB - new right basilar opacity, hospitalist team assisting PNA vs atelectasis. Wheezing seems more upper respiratory as lungs sound clear -Continue clindamycin -Continue ISS minimum qshift -Encourage patient to cough when wheezing if upper respiratory this should help to clear #L2-5 anterior and posterior fusion - Stable hardware on XR today -Continue PRN oxycodone -C-brace precautions #Stroke presumably left MCA based [...] baclofen 10mg BID, with up-titration to 10mg TI D early next week -Continue Atorvastatin 40mg daily -Start baclofen 10mg BID, and increase to 10mg TID in three days if t olerated -Continue losartan 50mg daily -Continue warfarin, INR 1.08 today -LMWH until therapeutic #rash on groin and face with satellite lesions -Nystatin powder for groin -trial powder for lip, but if no improvement will trial steroid cream or ketoconazole. #Fall - on 07/09occurred this afternoon, patient had multiple falls at home which is why we admitted him. Unfortunately the fall was unwitnessed and he was on the ground for some isaiah e so the etiology is not clear. The fall occurred after he fell out of bed, there was no be d alarm on. Exam reassuring today. -STAT CT head - no acute changes -XR L-spine - no hardware changes, stable -bed alarm on at all times, if patient continues to be impulsive will consider a sitter #Retroperotineal fibrosis - stable. -Continue Cellcept 500mg qday for now and will get clarification fo r PCP on why he is taking it. #History of depression - stable -Continue citalopram 40mg daily #Hypokalemia - continued -Continue potassium chloride 20meq BID -Repeat BMP tomorrow Code Status: Full Code PAU: 07/19/16 with 24hr supervision from family I spent greater than 25 minutes face to face with the patient, with over 50% spent in couns eling and/or coordination of care regarding the above plan. Signed: Eduard Young MD Portions of this chart may have been created with [employer] recognition software. Occasi onal wrong-word or sound-alike substitutions may have occurred due to the inherent murphy itations of voice recognition software. Please read the chart carefully and recognize, using context, where these substitutions have occurred. Sandeep Geronimo P harmD - 07/09/2016 7:13 AM PDT WARFARIN PER PHARMACY PROTOCOL: Subjective/Objective: Kevin Aleman Sr. is a 70 y.o. male admitted on 07/06/2016 for stroke and is receiving warfarin. Patient has a past medical history of GERD (gastroesophageal reflux disease); Dep ression; High cholesterol; Stroke (HCC); Hypertension; Back pain of thoracolumbar region (); Facet arthritis of lumbar region (HCC) (02/01/2015); Trochanteric bursitis of righ t hip (02/01/2015); Poor circulation; and Adverse effect of anesthesia. Goal INR: 2-3 []Initiation [x]chronic Home regimen: 22.5mg/week Managed by: Liquor Maker: None Drug Interactions: None NON-valvular AFIB patients: [id number] score (max 9): []CHF, []HTN, []Age > 75 (2), []DM, [] prior CVA,VTE (2), []OK,PAD, []Age 64-74, []Female Recent Labs Lab 07/09/16 0506 07/08/16 0836 07/07/16 0609 CREA -- -- 0.77 HGB -- -- 12.2* HCT -- -- 35.4* PLT -- -- 145 INR 1.08 0.97 0.98 Date 07/03/16 07/06/16 07/07/1607/08 Hgb 12.2 - 12.2 - - Hct - - 35.4 - - Platelets - - 145 - - INR 1.03 - 0.98 0.97 1.08 Warfarin Dose - 2.5mg 2.5mg 5 mg 2.5 mg Assessment: The INR is below the target range of 2-3 for stroke and has started increasing appropria tely Also on enoxaparin 40mg SC daily. Was taking coumadin prior to surgery which was tempora rily held Plan: 1. Will restart total weekly dose of 22.5 mg per week Warfarin 2.5 mg po daily except 5 mg po daily on MoWe 2. Medication profile reviewed for potential drug-drug interactions 3. Labs in am: INR 4. Warfarin education received No. 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 Pharmacist to follow daily Warfarin Dosing Nomogram Warfarin Dosing Expectations Per P&T-approved Electronically signed by: Sandeep Contreras PHARMD 07/09/2016 7:13 Eduard Schwartz MD - 07/08/2016 6:03 PM P DT [facility] Daily Progress Note Date: 07/08/2016 ID/CC: Kevin Aleman Sr. is a 70 y.o. male who was admitted to the inpatient acute rehabilitat ion for management of his L2-L5 back surgery for facet syndrome, acute asthma flare up and h ypoxia, plus his previous CVA with right sided mild weakness, but moderate and worsened spas ticity. Now with a GLF at the hospital Interval history: Mr. Garcia sustained an unwitnessed ground level fall this afternoon. The details are evelia ewhat uncertain as he did not alert staff when the fall occurred because his door was shut a nd he "didn't think anyone would be able to hear [him] yell." He does not remember why he g ot out of bed in the first place but he remembers stumbling forward landing with his forearm s against the windowsill then back stepping and hitting the hospital room closet in the corn er of the room, then he fell backward striking his head. He does not know if he had any LOC . He was unable to reach his urinal so he urinated on the ground and was also incontinent o f loose stool. He was able to reach a blanket on his bed which he pulled down and placed be hind his head to rest. Patient estimates that he was on the ground for approximately one ho ur before PT came in for their scheduled session around 3pm. Per PT at that time the patien t was fully oriended with baseline cogitation, no sequela of post-ictal. Patient reports acute on chronic left hip pain, denies any increased pain around his lumbar surgical site, denies any current head pain, denies diplopia, denies any new weakness. Review of Systems - Constitutional - denies [...] the history of present illness. MSK - denies muscle pain, denies spasticity, denies joint pain. Endocrine - denies heat/cold intolerance Skin - denies open sores Psych - denies depression, anxiety - denies incontinence, dysuria, frequency All denies rash, denies pruritis Hematologic- denies easy bruising or bleeding, denies weight loss Current Meds: Current facility-administered medications: albuterol 2.5 mg/3 mL nebulizer solution 2.5 mg, 2.5 mg, Nebulization, RT Q4H PRN, Emma Young MD, 2.5 mg at 07/07/162057 aluminum & magnesium hydroxide-simethicone (MAALOX PLUS REGULAR STRENGTH) 200-200-20 m g/5 mL suspension 30 mL, 30 mL, Oral, Q6H PRN, Eduard Young MD, 30 mL at 07/08/16 121 3 atorvaSTATin (LIPITOR) tablet 40 mg, 40 mg, Oral, Nightly, Eduard Young MD, 40 mg at 07/07/162132 baclofen (LIORESAL) tablet 10 mg, 10 mg, Oral, BID, Eduard Young MD, 10 mg at 1 0906 bisacodyl (DULCOLAX) EC tablet 5 mg, 5 mg, Oral, Daily PRN, Albaro Pedro, 5 mg at 07/06/162105 bisacodyl (DULCOLAX) suppository 10 mg, 10 mg, Rectal, Daily PRN, Eduard Young MD calcium carbonate (TUMS) chewable tablet 1,000 mg, 1,000 mg, Oral, Q2H PRN, Eduard Young MD, 1,000 mg at 07/08/16 0326 citalopram (celeXA) tablet 40 mg, 40 mg, Oral, Daily, Eduard Young MD, 40 mg at 07/08/16 0906 clindamycin (CLEOCIN) capsule 300 mg, 300 mg, Oral, 4 times per day, Mago Melendez MD, 300 mg at 07/08/16 1731 cyclobenzaprine (FLEXERIL) tablet 10 mg, 10 mg, Oral, Q8H PRN, Eduard Young MD, 10 mg at 07/07/16 0916 docusate sodium (COLACE) capsule 100 mg, 100 mg, Oral, BID, Eduard Young MD, 10 0 mg at 07/08/16905 docusate-senna (SENOKOT-S) 50-8.6 mg per tablet 2 tablet, 2 tablet, Oral, BID PRN, Shaun Rivera MD, 2 tablet at 07/07/162132 enoxaparin (LOVENOX) 40 mg/0.4 mL injection 40 mg, 40 mg, Subcutaneous, Daily, Lion Perez PHARMD, 40 mg at 07/08/16905 finasteride (PROSCAR) tablet 5 mg, 5 mg, Oral, Daily, Eduard Young MD, 5 mg at 07/08/16905 gabapentin (NEURONTIN) capsule 100 mg, 100 mg, Oral, 4x Daily PRN, Almas ryan MD, 100 mg at 07/07/162136 guaiFENesin (ROBITUSSIN) 100 mg/5 mL liquid 200 mg, 200 mg, Oral, Q4H PRN, Chan Arzate MD lactulose liquid 30 mL, 30 mL, Oral, Daily PRN, Eduard Young MD losartan (COZAAR) tablet 50 mg, 50 mg, Oral, Daily, Eduard Young MD, 50 mg at 1 09 magnesium hydroxide (MILK OF MAGNESIA) 400 mg/5 mL suspension 30 mL, 30 mL, Oral, Nigh tly PRN, Eduard Young MD menthol (HALLS COUGH DROP) lozenge 1 lozenge, 1 lozenge, Buccal, Q1H PRN, Chan liao MD, 1 lozenge at 07/07/16 215 mycophenolate (CELLCEPT) capsule 500 mg, 500 mg, Oral, QAM, Eduard Young MD, 50 0 mg at 07/08/16 0906 ondansetron (ZOFRAN ODT) disintegrating tablet 4 mg, 4 mg, Oral, Q6H PRN, Eduard mathews MD oxyCODONE (ROXICODONE) tablet 5-20 mg, 5-20 mg, Oral, Q4H PRN, Eduard Young MD, 10 mg at 07/08/16 1731 pantoprazole (PROTONIX) DR tablet 40 mg, 40 mg, Oral, QAM AC, Eduard Young MD, 40 mg at 07/08/16 0652 pharmacy to dose warfarin, , Other, Pharmacy Consult, William Garcia MD polyethylene glycol (MIRALAX) powder 17 g, 17 g, Oral, Daily PRN, Eduard Young MD potassium chloride (K-DUR) ER tablet 20 mEq, 20 mEq, Oral, BID, Chan Arzate MD, 20 mEq at 07/08/16 09 senna (SENOKOT) tablet 8.6 mg, 8.6 mg, Oral, Nightly, Eduard Young MD, 8.6 mg a t 07/07/162132 traZODone (DESYREL) tablet 25 mg, 25 mg, Oral, Nightly PRN, MR x 1, Eduard Young MD Allergies: Allergies Allergen Reactions Hydrocodone Itching Severe itching Acetaminophen Itching Intolerance No active intolerances/contraindications Physical Exam: BP 172/84 mmHg | Pulse 76 | Temp(Src) 36.4 C (97.5 F) (Oral) | Resp 18 | Ht 1.651 m (5' 5") | Wt 68.4 kg (150 lb 12.7 oz) | BMI 25.09 kg/m2 | SpO2 96% Gen: AOx3, sitting in bed, NAD CVS: rrr, no m/r/g Resp: CTAB, no wheeze, crackles, or rhonchi Abd: Non-distended, non-tender, +BS Skin: vertical scrape over proximal right posterior forearm ~4cm wide and ~8cm long. MSK: no pain with right or left hip internal rotation, right hip pain with resisted left hi p flexion No cervical tenderness with palpation of spinous processes , painless ROM of neck Neuro: Cognitive exam: Oriented to: Self Name of hospital City Month Year. Cranial nerves: CNI: not tested CNII: no [...] MAS 1+ at elbow. Contracture of right kn ee to 10 degrees Pronator Drift: No pronator drift bilaterally Power: MMT 0-5 scoring: R, L [id number] FFFAb Right4-3+4-4-4- 4-4- [id number] HFHE KFKEDF PFGTE [id number] Reflexes: BicTriBrachioRadPatellaAc hilles R 1+1+1+ 1+1+ L 3+3+3+ 3+3+ Babinski: + on right, unchanged Sensory function: Light touch, pin-prick: intact in C4- T1, L2-S2 Double tactile stimulation: No pravin-neglect Labs: Recent Results (from the past 48 hour(s)) CBC no Differential Result Value Ref Range WBC 6.6 4.0-11.0 K/uL RBC 3.40 (L) 4.30-5.70 M/uL Hgb 12.2 (L) 13.5-18.0 g/dL Hct 35.4 (L) 40.0-51.0 % MCV 104.0 (H) 83.0-101.0 fL MCH 35.7 (H) 28.0-35.0 pg MCHC 34.4 32.0-36.0 g/dL RDW-CV 13.3 <15.0 % Platelet Count 145 140-440 K/uL MPV 7.1 fL Comprehensive Metabolic Panel Result Value Ref Range NA 139 136-149 mmol/L K 3.4 (L) 3.5-5.1 mmol/L CL 105 98-109 mmol/L CO2 27 24-31 mmol/L ANION GAP 7 3-16 mmol/L GLUCOSE 99 70-109 mg/dL BUN 8 7-18 mg/dL Creatinine, Serum/Plasma 0.77 0.60-1.30 mg/dL eGFR if not >60 >=60 mL/min/1.73m2 CALCIUM 8.2 (L) 8.3-10.5 mg/dL ALBUMIN 2.5 (L) 3.2-5.0 g/dL BILIRUBIN TOTAL 1.3 0.1-1.5 mg/dL Total protein 5.5 (L) 6.0-7.8 g/dL AST 55 (H) 10-42 U/L ALT 21 6-45 U/L ALK PHOS 49 40-110 U/L GLOBULIN 3.0 2.1-3.8 g/dL Albumin/Globulin ratio 0.8 0.8-2.0 BUN/CREA 10.4 Protime INR Result Value Ref Range PROTIME 13.2 11.3-13.9 seconds INR 0.98 0.90-1.10 Potassium Result Value Ref Range K 2.8 (L) 3.5-5.1 mmol/L Magnesium Result Value Ref Range MG 1.9 1.8-2.5 mg/dL Extra Lavender Top Tube Result Value Ref Range Extra Lavender Top Tube Done Protime INR Result Value Ref Range PROTIME 13.1 11.3-13.9 seconds INR 0.97 0.90-1.10 Most recent FIM scores: Report Date 07/08/2016 FIM BladderScore: 5 FIM Bowel Score: 6 FIM Bed/Chair/Wheelchair Score: 4 FIM Toilet Transfer Score: 4 FIM Tub/Shower Transfer Score: 4 FIM Walk Score: 2 FIM Distance Walked(feet): 75 feet FIM Wheelchair Score: FIM Stairs Score :2 FIM Eating Score: 6 FIM Grooming Score: 5 FIM Bathing Score: 4 FIM Dressing Upper Body Score: 4 FIM Dressing Lower Body Score: 3 FIM Toileting Score: 4 Assessment/Plan: Mr. Aleman is a 70 year-old right-handed [...] doing well with therapies #Rehabilitation Medicine Recommendations: --Continue PT for strength, endurance, ROM, ambulation, balance --Continue OT for UE strengthening, functioning, and ROM; and training in ADLs, IADLs --Continue Speech therapy (UNDERWEAR TRIMMER) to follow for for cognitive/communication evaluation, UNDERWEAR TRIMMER e arline today suggestive of mid-esophageal dysphagia, so instead of MBS will instead order a bar ium esophagram tomorrow. #Fall - occurred this afternoon, patient had multiple falls at home which is why we admitte d him. Unfortunately the fall was unwitnessed and he was on the ground for some time so the etiology is not clear. The fall occurred after he fell out of bed, there was no bed alarm on. Exam reassuring today. -STAT CT head - no acute changes -XR L-spine - no hardware changes, stable -bed alarm on at all times, if patient continues to be impulsive will consider a sitter #Bladder: Agree with continuing palomares for now; primary team to initiate voiding trials as a ppropriate (recommend checking pre- and post-void bladder scan. If volume >300ml, have patie nt void and double void. If unable, recommend intermittent catheterization.) #SOB - new right basilar opacity, hospitalist team assisting PNA vs atelectasis -Continue clindamycin -Continue ISS minimum qshift -ECG done today, ordered by Dr. Joel #L2-5 anterior and posterior fusion - Stable hardware on XR today -Continue PRN oxycodone -C-brace precautions #Stroke presumably left MCA based [...] baclofen 10mg BID, with up-titration to 10mg TI D early next week -Continue Atorvastatin 40mg daily -Start baclofen 10mg BID, and increase to 10mg TID in three days if t olerated -Continue losartan 50mg daily -Continue warfarin -LMWH until theraputic #?autoimmune disease - patient is taking CellCept, unclear from his notes why he is taking this, the dose he is taking is not therapeutic either, typically the minimal therapeutic dos e is 500mg BID. This does put him at an increased risk of infection. -Continue Cellcept 500mg qday for now and will get clarification fo r PCP on why he is taking it. #History of depression - stable -Continue citalopram 40mg daily, the recommended maximum dose for g eriatric patients is 20mg daily will also clarify this with PCP #Hypokalemia - continued -Continue potassium chloride 20meq BID Code Status: Full Code I spent greater than 25 minutes face to face with the patient, with over 50% spent in couns eling and/or coordination of care regarding the above plan. Signed: Eduard Young MD Portions of this chart may have been created with [employer] voice recognition software. Occasi onal wrong-word or sound-alike substitutions may have occurred due to the inherent murphy itations of voice recognition software. Please read the chart carefully and recognize, using context, where these substitutions have occurred. Charly White RN - 07/08/2016 4:53 PM PDTPt was found on the floor by the window by Hector/PT, Pt stated that didn't remember getting out of bed, that the 1st thing he remembered is his arm hitting the window sill and that pain, and then then fell backwards and hit his head on the floor. Pt stated that he laid on the floor for approx 45-60 mins before he was found by sta ff. VS 161/81 HR 86 resp 20 O2 sat 92% RA, 36.6 c Pt stated that he did not call out because his door was closed and he didn't think anyone w ould hear him. He stated that he pushed the nurse call on the bed but no one answered. (th e nurse bed calls are not hooked up). The Bed alarm was not plugged in at the time the pt was found, even though I had connected it at 1230p when I help pt back to bed. Call light w as across the room and unreachable to pt while on the floor. O2 was not on at the time of i ncident. Pt was incontinent of bowel and bladder on floor. Pt c/o head pain and had a skin tear to his right forearm. He was bony lifted into bed. Cloths changed, right FA cleansed with an tibacterial wound cleanser and a meplix applied. Dr. Young was notified by Hector/PTPauly order Head Ct and Lumbar xray.Electronically signed by LIGIA Peng 07/08/2016 5:33 PM Sandeep Geronimo, PharmD - 07/08/2016 9:50 AM PDT WARFARIN PER PHARMACY PROTOCOL: Subjective/Objective: Kevin Gutierrez [facility]. is a 70 y.o. male admitted on 07/06/2016 for stroke and is receiving warfarin. Patient has a past medical history of GERD (gastroesophageal reflux disease); Dep ression; High cholesterol; Stroke (HCC); Hypertension; Back pain of thoracolumbar region (); Facet arthritis of lumbar region (HCC) (02/01/2015); Trochanteric bursitis of righ t hip (02/01/2015); Poor circulation; and Adverse effect of anesthesia. Goal INR: 2-3 []Initiation [x]chronic Home regimen: 22.5mg/week Managed by: Liquor Maker: None Drug Interactions: None NON-valvular AFIB patients: [id number] score (max 9): []CHF, []HTN, []Age > 75 (2), []DM, [] prior CVA,VTE (2), []OK,PAD, []Age 64-74, []Female Recent Labs Lab 07/08/16 0836 07/07/16 0609 07/03/16 0912 CREA -- 0.77 -- HGB -- 12.2* -- HCT -- 35.4* -- PLT -- 145 -- INR 0.97 0.98 1.03 Date 07/03/16 07/06/16 07/07/1607/08 Hgb 12.2 - 12.2 - Hct - - 35.4 - Platelets - - 145 - INR 1.03 - 0.98 0.97 Warfarin Dose - 2.5mg 2.5mg 5 mg Assessment: The INR is below the target range of 2-3 for stroke Also on enoxaparin 40mg SC daily. Was taking coumadin prior to surgery which was tempora rily held INR is subtherapeutic and stagnant Plan: 1. Warfarin 5 mg po x1 and reassess in AM 2. Medication profile reviewed for potential drug-drug interactions 3. Labs in am: INR 4. Warfarin education received No. 5. Pharmacist to follow daily Warfarin Dosing Nomogram Warfarin Dosing Expectations Per P&T-approved Electronically signed by: Sandeep Contreras PHARMD 07/08/2016 9:50 Hailey Herrera MD - 07/08/2016 8:48 AM PDTFor matting of this note might be different from the original. [facility] PMG Hospitalist Progress Note Kevin Aleman Sr. is a 70 y.o. male ASSESSMENT and PLAN: Active Hospital Problems -Shortness of breath Patient does not have fever or elevated white count. Chest x-ray suggests a new right basi lar opacity. This could be pneumonia versus atelectasis. Patient's currently being treated for an aspiration pneumonia. He is on clindamycin. He is also getting nebulizers. Plan-continue clindamycin. Continue nebulizer treatments. Continue incentive spirometry. For completeness I will order an EKG. Consider echocardiogram. -Hypertension Elevated this morning. Plan-monitor. Continue antihypertensives -Hyperlipidemia/history of stroke SUBJECTIVE: 70-year-old male with a past medical history of hypertension, hypercholesterolemia is on in patient rehab for lumbar surgery. We are consulted for dyspnea on exertion and wheezing. Patient reports that he still feels short of breath. Also having some midsternal chest royce n. He states that the breathing treatments are not helping. Review of Systems Constitutional: Negative for fever. HENT: Negative for congestion. Respiratory: Positive for shortness of breath. Negative for cough and sputum production. Cardiovascular: Positive for chest pain (sternum). Negative for leg swelling. Gastrointestinal: Negative for abdominal pain. VITALS: Temp: 36.4 C (97.5 F), Pulse: 76 (Simultaneous filing. User may not have seen previous data.), Resp: 18 (Simultaneous filing. User may not have seen previous data.), BP: 172/84 mm Hg, SpO2 96 % (Simultaneous filing. User may not have seen previous data.) on nasal cannula at flow rate 2L/min Temp Min: 36.4 C (97.5 F) Max: 37.6 C (99.7 F) Weight: 68.4 kg (150 lb 12.7 oz) Intake/Output Summary (Last 24 hours) at 07/08/16 0848 Last data filed at 07/08/16 0800 Gross per 24 hour Intake 800 ml Output 400 ml Net 400 ml PHYSICAL EXAM: Physical Exam Constitutional: He is oriented to person, place, and time. No distress. Neck: No JVD present. Cardiovascular: Normal rate, regular rhythm and normal heart sounds. No murmur heard. Pulmonary/Chest: Effort normal and breath sounds normal. No respiratory distress. He has no wheezes. He has no rales. Abdominal: Soft. Bowel sounds are normal. He exhibits no distension. There is no tenderness . Musculoskeletal: He exhibits no edema. Neurological: He is alert and oriented to person, place, and time. Skin: Skin is warm and dry. He is not diaphoretic. DIAGNOSTIC STUDIES: Available data and images were reviewed personally. Significant results and findings are a ddressed here or in the Assessment and Plan. Lab Results Component Value Date HGB 12.2* 07/07/2016 HCT 35.4* 07/07/2016 PLT 145 07/07/2016 WBC 6.6 07/07/2016 Lab Results Component Value Date NA 139 07/07/2016 K 2.8* 07/08/2016 CL 105 07/07/2016 CO2 27 07/07/2016 CREA 0.77 07/07/2016 BUN 8 07/07/2016 MG 1.9 07/08/2016 No results found for: POCGLU No results found for: POCGLU Xr Chest 2 Vw 07/07/2016 PA AND LATERAL CHEST 07/07/2016 2:34 PM CLINICAL HISTORY: hypoxia, wheezing,p ossible aspiration. COMPARISON: Chest radiographs June 21 FINDINGS: There is calcificati on and tortuosity of the thoracic aorta. The cardiomediastinal silhouette and pulmonary vas culature are otherwise unremarkable. There is new hazy reticular opacity at the right base and in the infrahilar region. The lungs are clear elsewhere. Trace pleural effusions are n ow suggested. There is no visible pneumothorax. Generalized osteopenia is suggested. IMPR ESSION - 1. NEW RIGHT BASILAR RETICULAR OPACITY, POSSIBLY REFLECTING ATELECTASIS, ASPIRAT ION OR DEVELOPING INFILTRATE, WITH TRACE PLEURAL EFFUSIONS. Dictated and Signed by: Haroldo quiroz MD Electronically signed: 07/07/2016 4:32 PM Total time of approximately 25 minutes was spent with the patient and/or patient's family, and/or on the patient's floor/unit, of which more than 50% was spent counseling and/or coord ination the patient's care as outlined above. Hailey Joel 07/08/2016 8:48 [facility] Portions of this chart may have been created with [employer] voice recognition software. Occasi onal wrong-word or sound-alike substitutions may have occurred due to the inherent murphy itations of voice recognition software. Please read the chart carefully and recognize, using context, where these substitutions have occurred Jane Mcclellan, PharmD - 07/07/2016 11:14 AM PDT WARFARIN PER PHARMACY PROTOCOL: Subjective/Objective: Kevin Aleman . is a 70 y.o. male admitted on 07/06/2016 for stroke and is receiving warfarin. Patient has a past medical history of GERD (gastroesophageal reflux disease); Dep ression; High cholesterol; Stroke (HCC); Hypertension; Back pain of thoracolumbar region (); Facet arthritis of lumbar region (HCC) (02/01/2015); Trochanteric bursitis of righ t hip (02/01/2015); Poor circulation; and Adverse effect of anesthesia. Goal INR: 2-3 []Initiation [x]chronic Home regimen: 22.5mg/week Managed by: Liquor Maker: None Drug Interactions: None NON-valvular AFIB patients: [id number] score (max 9): []CHF, []HTN, []Age > 75 (2), []DM, [] prior CVA,VTE (2), []OK,PAD, []Age 64-74, []Female Recent Labs Lab 07/07/16 0609 07/03/16 0912 CREA 0.77 -- HGB 12.2* -- HCT 35.4* -- PLT 145 -- INR 0.98 1.03 Date 07/03/16 07/06/16 07/07/16 Hgb 12.2 - 12.2 Hct - - 35.4 Platelets - - 145 INR 1.03 - 0.98 Warfarin Dose - 2.5mg 2.5mg Assessment: The INR is below the target range of 2-3 for stroke Also on enoxaparin 40mg SC daily. Was taking coumadin prior to surgery which was tempora rily held, Plan: 1. Warfarin 2.5mg today (07/07/16) 2. Medication profile reviewed for potential drug-drug interactions 3. Labs in am: Hgb, Hct, INR 4. Warfarin education received No. 5. Pharmacist to follow daily Warfarin Dosing Nomogram Warfarin Dosing Expectations Per P&T-approved Electronically signed by: Katelynn Perez, KYLED 07/07/2016 11:14Electronical ly signed by Kyle SzymanskiD at 07/07/2016 11:21 AM Almas Ortega MD - 07/07/2016 11:11 AM PDTFormatting of this note might be different from the or iginal. IPR Admission H&P/Post-admission PE/Overall Plan of Care Patient name: Kevin Aleman . : 1945 Date of Admission: 07/06/2016 Attending Physician: Eduard Young MD Impairment Group: Stroke 01.2 Right body involvement (left brain) Comorbid Conditions/List medical problems: Spasticity right side, lumbar facet syndrome chilango jessica. Patient Active Problem List Diagnosis FOOT DEFORMITY, [...] Dysphagia as late effect of cerebrovascular disease Rehabilitation Issues: Weakness Gait dysfunction Decreased balance Sensory loss Dyscoordination Dysmetria Dysphagia Cognitive deficits Aphasia Visual impairment Hearing impairment Functional Deficits: (keep those that apply, you may also think of others) Impaired mobility Impaired ADLs/iADLs Impaired communication Impaired community reintegration Impaired avocation Impaired vocation Impaired swallow CC/ID: Kevin Aleman . is a 70 y.o. male who was admitted to the inpatient acute rehabilitat ion for management of his L2-L5 back surgery for facet syndrome, acute asthma flare up and h ypoxia, plus his previous CVA with right sided mild weakness, but moderate and worsened spas ticity. HISTORY OF PRESENT ILLNESS: Mr. Aleman is a 70 year-old right-handed [...] was previously treated with serial casting in [place] which apparently resulted in significa nt improvement [...] he has done well with no severe complications except his asthma flare up, hypoxia, and worsened dysphagia and spasticity.. He did have some confusion on at night on 07/04 bu t was redirectable. ST is following for this. 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 Skin cancer excision 2014 cancer spots Lumbar spine surgery Right 07/03/2016 Procedure: L2-3, L3-4 Lateral Anterior Interbody Fusion, L4-5 Transforaminal Lumbar Inter body Fusion, Posterior Instrumentation at L2-3, L3-4, L4-5; Surgeon: William Garcia MD; Loca tion: [facility] OR Meds During Hospitalization Current Facility-Administered Medications Medication Dose Route Frequency Provider Last Rate Last Dose albuterol 2.5 mg/3 mL nebulizer solution 2.5 mg 2.5 mg Nebulization RT Q4H PRN Baldo Young MD 2.5 mg at 07/07/16 0813 aluminum & magnesium hydroxide-simethicone (MAALOX PLUS REGULAR STRENGTH) 200-200-20 mg /5 mL suspension 30 mL 30 mL Oral Q6H PRN Eduard Young MD atorvaSTATin (LIPITOR) tablet 40 mg 40 mg Oral Nightly Eduard Young MD 40 mg at 07/06/162105 bisacodyl (DULCOLAX) EC tablet 5 mg 5 mg Oral Daily PRN Almas Rivera MD 5 mg at 07/06/162105 bisacodyl (DULCOLAX) suppository 10 mg 10 mg Rectal Daily PRN Eduard Young MD calcium carbonate (TUMS) chewable tablet 1,000 mg 1,000 mg Oral Q2H PRN Eduard santa MD citalopram (celeXA) tablet 40 mg 40 mg Oral Daily Eduard Young MD 40 mg at 08 cyclobenzaprine (FLEXERIL) tablet 10 mg 10 mg Oral Q8H PRN Eduard Young MD 10 mg at 07/07/16 09 docusate sodium (COLACE) capsule 100 mg 100 mg Oral BID Eduard Young MD 100 m g at 07/07/16857 docusate-senna (SENOKOT-S) 50-8.6 mg per tablet 2 tablet 2 tablet Oral BID PRN Almas Rivera MD enoxaparin (LOVENOX) 40 mg/0.4 mL injection 40 mg 40 mg Subcutaneous Daily Katelynn Perez PHARMD 40 mg at 07/07/16857 finasteride (PROSCAR) tablet 5 mg 5 mg Oral Daily Eduard Young MD 5 mg at 857 lactulose liquid 30 mL 30 mL Oral Daily PRN Eduard Young MD losartan (COZAAR) tablet 50 mg 50 mg Oral Daily Eduard Young MD 50 mg at 06/16 magnesium hydroxide (MILK OF MAGNESIA) 400 mg/5 mL suspension 30 mL 30 mL Oral Nightly PRN Eduard Young MD mycophenolate (CELLCEPT) capsule 500 mg 500 mg Oral QAM Eduard Young MD 500 m g at 07/07/16 0858 ondansetron (ZOFRAN ODT) disintegrating tablet 4 mg 4 mg Oral Q6H PRN Eduard fernandez MD oxyCODONE (ROXICODONE) tablet 5-20 mg 5-20 mg Oral Q4H PRN Eduard Young MD 5 mg at 07/07/16 0916 pantoprazole (PROTONIX) DR tablet 40 mg 40 mg Oral QAM AC Eduard Young MD 40 mg at 07/07/16 0639 pharmacy to dose warfarin Other Pharmacy Consult William Garcia MD polyethylene glycol (MIRALAX) powder 17 g 17 g Oral Daily PRN Eduard Young MD senna (SENOKOT) tablet 8.6 mg 8.6 mg Oral Nightly Eduard Young MD 8.6 mg at 1 2105 traZODone (DESYREL) tablet 25 mg 25 mg Oral Nightly PRN, MR x 1 Eduard Young MD warfarin (COUMADIN) tablet 2.5 mg 2.5 mg Oral Daily - Warfarin Katelynn patricia, PHARMD 2.5 mg at 07/06/16 1750 Allergies: Allergies Allergen Reactions Hydrocodone Itching Severe itching Acetaminophen Itching Intolerance No active intolerances/contraindications Review of Systems: Constitutional - denies fevers/chills, denies fatigue Eyes - denies diplopia, denies double vision ENT denies sore throat, denies swallowing difficulty Card - denies CP, denies palpitations Pulm - denies dyspnea, cough, but has increased BURRELL, wheezing, with activities Abd - denies n/v, denies diarrhea/constipation Vascular - denies swelling, denies cold extremities Neuro - Please see the review of systems discussed above in the history of present illness. In addition, the patient has spasticity of right side worsened, increased dysphagia. MSK - has increased spasticity, denies joint pain. Endocrine - denies heat/cold intolerance - denies incontinence, dysuria, frequency All denies rash, denies pruritis Hematologic- denies easy bruising or bleeding, denies weight loss Social History: per chart review and confirmed with pt Social History Social History Marital Status: Spouse [...] Concern Not on file Social History Narrative Lives with his in a 1 story home with 2 stairs to enter. Bedroom and shower on fl oor. Avocation: retired Family History: Family History Problem Relation Age of Onset Stroke Father Cancer Father Alcohol abuse Father Hypertension Mother Stroke Mother Functional History: PRIOR FUNCTION: Patient was independent in mobility, self-care, swallowing, bladder/bowel, communication, cognition, and was driving, but limited in gait and transfers painful d/t fac et pain CURRENT FUNCTION: Report Date 07/07/2016 FIM BladderScore: 5 FIM Bowel Score: 6 FIM Bed/Chair/Wheelchair Score: 4 FIM Toilet Transfer Score: 4 FIM Tub/Shower Transfer Score: FIM Walk Score: 2 FIM Distance Walked(feet): 50 feet FIM Wheelchair Score: FIM Stairs Score :0 FIM Eating Score: 6 FIM Grooming Score: FIM Bathing Score: FIM Dressing Upper Body Score: 4 FIM Dressing Lower Body Score: 3 FIM Toileting Score: 5 Physical Exam: BP 148/79 mmHg | Pulse 92 | Temp(Src) 37.1 C (98.8 F) (Oral) | Resp 18 | Ht 1.651 m (5' 5") | Wt 68.4 kg (150 lb 12.7 oz) | BMI 25.09 kg/m2 | SpO2 94% Body mass index is 25.09 kg/(m^2). GEN: Normally developed, resting in bed, NAD PSYCH: Appropriate, pleasant, cooperative; but concerned about his wheezing RESP: Breathing comfortably, lungs CTAB, but wheezing noted yesterday on my exam and wheez ing earlier today noted by nursing CV: Heart RRR rate 90, no m/r/g, no LE edema, ABD: +BS, soft, NTND : Palomares out and voiding ok. MSK: ROM: ankle with 20 degree pf contracture Cranial nerves: CNVII: right facial droop CN XII: tongue protrudes to right midline without fasciculations or deviation Babinski: right positive Sensory function: Feels light touch UE/LE Coordination: Finger-to- nose test: within decreased on right as is Heel to [place]: Labs: Recent Results (from the past 48 hour(s)) CBC no Differential Collection Time: 07/07/16 6:09 Result Value Ref Range WBC 6.6 4.0-11.0 K/uL RBC 3.40 (L) 4.30-5.70 M/uL Hgb 12.2 (L) 13.5-18.0 g/dL Hct 35.4 (L) 40.0-51.0 % MCV 104.0 (H) 83.0-101.0 fL MCH 35.7 (H) 28.0-35.0 pg MCHC 34.4 32.0-36.0 g/dL RDW-CV 13.3 <15.0 % Platelet Count 145 140-440 K/uL MPV 7.1 fL Comprehensive Metabolic Panel Collection Time: 07/07/16 6:09 Result Value Ref Range NA 139 136-149 mmol/L K 3.4 (L) 3.5-5.1 mmol/L CL 105 98-109 mmol/L CO2 27 24-31 mmol/L ANION GAP 7 3-16 mmol/L GLUCOSE 99 70-109 mg/dL BUN 8 7-18 mg/dL Creatinine, Serum/Plasma 0.77 0.60-1.30 mg/dL eGFR if not >60 >=60 mL/min/1.73m2 CALCIUM 8.2 (L) 8.3-10.5 mg/dL ALBUMIN 2.5 (L) 3.2-5.0 g/dL BILIRUBIN TOTAL 1.3 0.1-1.5 mg/dL Total protein 5.5 (L) 6.0-7.8 g/dL AST 55 (H) 10-42 U/L ALT 21 6-45 U/L ALK PHOS 49 40-110 U/L GLOBULIN 3.0 2.1-3.8 g/dL Albumin/Globulin ratio 0.8 0.8-2.0 BUN/CREA 10.4 Protime INR Collection Time: 07/07/16 6:09 Result Value Ref Range PROTIME 13.2 11.3-13.9 seconds INR 0.98 0.90-1.10 Imaging: Recent Results (from the past 360 [...] Waldron MD Electronically signed: 07/03/2016 4:45 PM Assessment and Plan: Kevin Aleman Sr. is a 70 y.o. 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 PM&R consultation was request ed by Dr. William Garcia MD to provide an opinion regarding Kevin Aleman Sr. rehabilitati on needs). Patient has a long history of hemiparesis [...] was previously treated with serial casting in [place] which apparently resulted in significa nt improvement [...] he tried tizanidine, dantr olene, or diazepam. # Rehabilitation - Impairments: left hemiparesis, cognitive impairments, oropharyngeal dysp hagia, hypoxia, asthma flare up Current function: ambulating SBA w/ FWW, min A transfers w/ FWW, SBA UB ADL s, mod A LB A DL s The patient will receive the following therapies: -- PT: impairments in gait, transfers, bed mobility, ambulation, ROM, strengthening, endura nce. -- OT: impairments in ADLs and iADLs, ROM, strengthening. -- UNDERWEAR TRIMMER: impairments in cognition, communication, swallow/dysphagia -- P&O: pt may need AFO -- SW: discharge planning --RT for nebs --Hospitalist evaluation for BURRELL, wheezing Medical problems, rehab problems: # Asthma flare with BURRELL: continues today after nebs yesterday, so CXragarrett ordered and Dr. Delmar sepulveda to see him later today. Reviewed with nursing also. # Pain: Improving -MSK pain Tylenol, PRN narco -Neuropathic pain gabapentin for right lateral ankle burning General Health Management #GI: some catching/spasm lower esophagus, ST to do MBS for this and dysphagia. -Peptic ulcer disease prophylaxis :omeprazole -PRN zofran for nausea -Daily docusate and senna -PRN milk of magnesia and magnesium citrate #Bladder management: palomares out and pvr's ok, voiding ok #DVT prophylaxis: lovenox until therapeutic on coumadin - -Enoxaparin4 0 units daily plus coumadin per pharmacy -MARINA/SCDs #PUD prophylaxis: doing ok -Omeprazole daily #FEN: PRN #Diet: oropharyngeal dysphagia dysphagia mechanical w/ nectar thick. MBS ordered. #IV: accesses Active Peripheral IVs PIV Line Peripheral IV Line - Single Lumen 07/05/16 1130 Left Forearm [id number] catheter syst em 22 gauge 1 day #I/O: doing ok -Daily weights #Code Status: Full Code Individualized Overall Rehab Plan of Care: Medical Prognosis: Good Primary rehab dx: Stroke 01.2 Right body involvement (left brain) Comorbid conditions: L2-5 XLIF, asthma with hypoxia flare up Prognosis for functional improvement: Good. Anticipated interventions: Rehabilitation medicine physician for daily monitoring of care, 24 hour availability for acute medical issues, medication management, and therapeutic and di agnostic assessments. 24 hour rehabilitation nursing 7 days per week for: management/teaching of medications, bow el/bladder routine, skin care. PT for 60-90 minutes per day 5-6 days/week OT for 60-90 minutes per day 5-6 days/week UNDERWEAR TRIMMER for 60 minutes per day 2-3 days/week P&O: May need orthosis, still TBD. If so, will need 2-3 visits, 1 hour per visit. 3 days. SW for discharge planning, community resources, and family support. The patient is at risk for the following complications if inpatient rehabilitation is not r eceived: -brain injury from hypoxia -aspiration pneumonia from dysphagia -Falls with injuries -Inability to perform activities of daily living -Depression 2/2 new injury -DVT -Infection I have independently evaluated and examined the patient. And have formulated the plan as ou tlined below. This patient will require close daily supervision from a rehabilitation physic watson and would benefit from an interdisciplinary rehab team approach with the following antic ipated interventions: Rehabilitation medicine physician for daily monitoring of care, 24 hour availability for ac [place] medical issues, medication management, and therapeutic and diagnostic assessments. Hosp italist consulted for asthma flare up 24 hour rehabilitation nursing 7 days per week for: management/teaching of medications, bow el/bladder routine, skin care. PT for 60 minutes per day 5-6 days/week OT for 60 minutes per day 5-6 days/week UNDERWEAR TRIMMER for 60 minutes per day 4-6 days/week P&O: May need orthosis, still TBD. If so, will need 2-3 visits, 1 hour per visit. 3 days. SW for discharge planning, community resources, and family support. RT for nebs and other pulm toilet Hospitalist for asthma flare up Nutrition for monitoring of nutritional status. Functional Goals to be Achieved During Intensive Rehabilitation Program: Mod i bed mobs, transfers, gait 50-150 with FWW, toileting, dressing. Pt requires and can tolerate 3 hours of therapy per day, will participate in therapy and jimenez s sufficient carryover to benefit from rehabilitation. The patient will benefit from comprehensive inpatient rehab therapies to address the functi onal goals above. I anticipate that this patient will make meaningful progress toward their rehab goals in a reasonable amount of time. Continued progress towards rehabilitation goals cannot be achieved at a lower level of care. Discharge Plan: home with in [place] Home independently with giving intermittent help Estimated Length of Stay: 14 days This care plan will be updated as the patient condition changes and with input from the int erdisciplinary team. Follow up: -PCP: 1-2 weeks after d/c from hospital -Rehab FU: 3-4 weeks after rehab d/c -Home therapy vs outpatient therapy ARIANA Rivera MD 07/07/2016 11:12 Portions of this chart may have been created with [employer] voice recognition software. Occasi onal wrong-word or sound-alike substitutions may have occurred due to the inherent murphy itations of voice recognition software. Please read the chart carefully and recognize, using context, where these substitutions have occurred Candida Graves RRT - 07/06/2016 10:21 AM PDTCal led by nursing to eval and likely treat Mr Aleman, a newly transferred patient to the re-hab department. Pt has never used O2 before, doesn't use bronchodilators @ home, his BS currently are clear of wheezes or rhonchi, His SpO2 value on 2 lpm nc are 96%. Pt states that since being in [facility] he has been experiencing SOB and wheezing upon exertion. It quits as soon as he h as had time to recover. Will continue to monitor.Electronically signed by: Candida Gautam RRT 07/06/2016 10 :29 documented in this encounter H&P Notes Candida Gautam RRT - 07/12/2016 6:21 PM PDTFormatting of this note might be diffe rent from the original. Severity Score : 4 Class : 2 Kevin has been in Re-hab for 6 days. PRN albuterol nebulizer treatments have been ordered , he hasn't taken one for several days. He found they weren't helpful. He has been using .5 lpm nc during his sleep time, during the day @ rest or while exercising he is on RA and satu rating in the mid to high 90's. Will continue to follow,treat and suggest as appropriate. Severity Score 0-4 ITEM 0 1 2 [...] with pulmonary disease or Central Nervous System 0 Chest X-RAY Clear or Normal baseline Unavailable [...] 2 8-11 3 12-14 4 15+ 5 Herrera Ortega MD - 07/06/2016 5:34 PM PDT IPR Admission H&P/Post-admission PE/Overall Plan of Care Patient name: Kevin Aleman Sr. : 1945 Date of Admission: 07/06/2016 Attending Physician: Eduard Young MD Impairment Group: Stroke 01.2 Right body involvement (left brain) Comorbid Conditions/List medical problems: Patient Active Problem List Diagnosis FOOT DEFORMITY, [...] (gastroesophageal reflux disease) Hypertension Depression Chronic anticoagulation Rehabilitation Issues: Weakness Gait dysfunction Decreased balance Sensory loss Dyscoordination Dysmetria Dysphagia Cognitive deficits Aphasia Visual impairment Hearing impairment Functional Deficits: (keep those that apply, you may also think of others) Impaired mobility Impaired ADLs/iADLs Impaired communication Impaired community reintegration Impaired avocation Impaired vocation Impaired swallow CC/ID: This is an H and P, plus post admission physician revaluation. Compared to his preadmission screen, he is similar to what I expected and thus expect he wi ll go on to meet goals and be discharged home in his 's care. It is safe to start therapies, but we need to watch his O2 sats closely. It is reasonable to admit this patient since he has both medical and functional needs as de scribed below. This is to validate the patient's contiion on admission and I have described his rehab comp lications and medical condition he is at risk for d/t his comorbidities and the rigors of [facility] rehab program and the specific plan to avoid them. See below. Kevin Aleman Sr. is a 70 y.o. 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 PM&R consultation was reques marina by Dr. William Garcia MD to provide an opinion regarding Kevin Aleman Sr. rehabilitat ion needs HISTORY OF PRESENT ILLNESS: History of Present Illness: Mr. Aleman is [...] was previously treated with serial casting in [place] which apparently resulted in significa nt improvement [...] some confusion on at n ight on 10/20 but was redirectable. 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 Skin cancer excision 2014 cancer spots Lumbar spine surgery Right 07/03/2016 Procedure: L2-3, L3-4 Lateral Anterior Interbody Fusion, L4-5 Transforaminal Lumbar Inter body Fusion, Posterior Instrumentation at L2-3, L3-4, L4-5; Surgeon: William Garcia MD; Loca tion: [facility] MAIN OR Meds During Hospitalization Current Facility-Administered Medications Medication Dose Route Frequency Provider Last Rate Last Dose albuterol 2.5 mg/3 mL nebulizer solution 2.5 mg 2.5 mg Nebulization RT Q4H PRN Baldo Yougn MD 2.5 mg at 07/06/16 1543 aluminum & magnesium hydroxide-simethicone (MAALOX PLUS REGULAR STRENGTH) 200-200-20 mg /5 mL suspension 30 mL 30 mL Oral Q6H PRN Eduard Young MD atorvaSTATin (LIPITOR) tablet 40 mg 40 mg Oral Nightly Eduard Young MD bisacodyl (DULCOLAX) EC tablet 5 mg 5 mg Oral Daily PRN Almas Rivera MD bisacodyl (DULCOLAX) suppository 10 mg 10 mg Rectal Daily PRN Eduard Young MD calcium carbonate (TUMS) chewable tablet 1,000 mg 1,000 mg Oral Q2H PRN Eduard santa MD [START ON 07/07/2016] citalopram (celeXA) tablet 40 mg 40 mg Oral Daily Eduard santa MD cyclobenzaprine (FLEXERIL) tablet 10 mg 10 mg Oral Q8H PRN Eduard Young MD docusate sodium (COLACE) capsule 100 mg 100 mg Oral BID Eduard Young MD docusate-senna (SENOKOT-S) 50-8.6 mg per tablet 2 tablet 2 tablet Oral BID PRN Almas Rivera MD [START ON 07/07/2016] enoxaparin (LOVENOX) 40 mg/0.4 mL injection 40 mg 40 mg Subcutan eous Daily Katelynn Perez, KYLED [START ON 07/07/2016] finasteride (PROSCAR) tablet 5 mg 5 mg Oral Daily Eduard santa MD lactulose liquid 30 mL 30 mL Oral Daily PRN Eduard Young MD [START ON 07/07/2016] losartan (COZAAR) tablet 50 mg 50 mg Oral Daily Eduard fernandez MD magnesium hydroxide (MILK OF MAGNESIA) 400 mg/5 mL suspension 30 mL 30 mL Oral Nightly PRN Eduard Young MD [START ON 07/07/2016] mycophenolate (CELLCEPT) capsule 500 mg 500 mg Oral QAM Eduard Young MD ondansetron (ZOFRAN ODT) disintegrating tablet 4 mg 4 mg Oral Q6H PRN Eduard fernandez MD oxyCODONE (ROXICODONE) tablet 5-20 mg 5-20 mg Oral Q4H PRN Eduard Young MD [START ON 07/07/2016] pantoprazole (PROTONIX) DR tablet 40 mg 40 mg Oral QAM AC Estefani Young MD pharmacy to dose warfarin Other Pharmacy Consult William Garcia MD polyethylene glycol (MIRALAX) powder 17 g 17 g Oral Daily PRN Eduard Young MD senna (SENOKOT) tablet 8.6 mg 8.6 mg Oral Nightly Eduard Young MD traZODone (DESYREL) tablet 25 mg 25 mg Oral Nightly PRN, MR x 1 Eduard Young MD warfarin (COUMADIN) tablet 2.5 mg 2.5 mg Oral Daily - Warfarin Katelynn patricia, PHARMD Allergies: Allergies Allergen Reactions Hydrocodone Itching Severe itching Acetaminophen Itching Intolerance No active intolerances/contraindications Review of Systems: Constitutional - denies fevers/chills, denies fatigue Eyes - denies diplopia, denies double vision ENT denies sore throat, wet cough, problems swallowing bread Card - denies CP, denies palpitations Pulm - SOB with exertion, increased wheezing Abd - denies n/v, denies diarrhea/constipation Vascular - denies swelling, denies cold extremities Neuro - previous CVA right hemiparesis, spasticity MSK - right toe curling, right ankle contracture, spasticity right side. Endocrine - denies heat/cold intolerance Skin - denies open sores Psych - hx depression, ok on meds - denies incontinence, dysuria, frequency, has urinated today, no BM yet All denies rash, denies pruritis Hematologic- denies easy bruising or bleeding, denies weight loss Social History: per chart review and confirmed with pt. can give intermittent supervi bryce, 2 steps into one story home, in [place], [place] Social History Social History Marital Status: Spouse [...] Concern Not on file Social History Narrative Lives with in a 1 story home with 2 stairs to enter. Bedroom and shower on 1st floor. Retired. Family History: Family History Problem Relation Age of Onset Stroke Father Cancer Father Alcohol abuse Father Hypertension Mother Stroke Mother Functional History: PRIOR FUNCTION: Patient was independent in mobility, self-care, swallowing, bladder/bowel, communication, cognition, and was driving. However, limited in distance by back pain and ri ght leg spasticity. CURRENT FUNCTION: Report Date 07/06/2016 FIM BladderScore: 5 FIM [...] Body Score: 3 FIM Toileting Score: 4 Physical Exam: BP 159/83 mmHg | Pulse 89 | Temp(Src) 37.1 C (98.8 F) (Oral) | Resp 18 | Ht 1.676 m (5' 6") | SpO2 96% There is no weight on file to calculate BMI. GEN: Normally developed, resting in bed, O2 in place at 2l PSYCH: Appropriate, pleasant, cooperative; normal mood, affect and thought content HEENT: NCAT, PERRL, anicteric sclera, right facial droop, tongue deviates slightly to right on protrusion. Neck: Supple with no LAD RESP: moderate expiratory wheezing left > right CV: Heart RRR, no m/r/g, no LE edema, DP and PT pulses symmetric, extremities warm, rate 72 ABD: +BS, soft, NTND : out SKIN: no rashes or skin breakdown noted MSK: ROM: right ankle with 20 degree PF contracture, right toe goes up 45 degrees with luis e nski test, right arm/leg mild to moderate spasticity. Neurologic Exam: GCS: na Cognitive exam: Oriented 3: Self, name of [facility], city, date, month, year, approximate day Cranial nerves: CNI: not tested CNII: no visual field deficits detected, afferent pupil response to light intact CNIII, IV, : PERRL, EOMI CNV: intact sensation in all three divisions bilaterally, motor function intact CNVII: right facial droop CNVIII: gross hearing intact CN IX and X: no hoarseness appreciated, uvula midline CN XI: symmetric shoulder shrug CN XII: tongue protrudes slightly to right of midline Motor function: Tone: increased on right Pronator Drift: No pronator drift bilaterally Power: MMT 0-5 scoring: R, L Right UE And LE 4/5, left 5-, feels light touch UE/LE Reflexes: Bic Tri BrachioRad Patella Achilles R 3+ 3+ 3+ 3+ 4+ L 2+ 2+ 2+ 2+ 2+ Babinski: positive right Lovelace's: absent bilaterally Sensory function: Light touch, intact in C4- T1, L2-S2 Coordination: Finger-to- nose test: decreased right mild to mod, right LE heel higginbotham decreased mild to mod Sitting Balance: sba Rapid alternating movements: decreased right Tremor: none Gait: CGA with right toe catching Physical exam compared to the preadmission screen no change Labs: No results found for this or any previous visit (from the past 48 hour(s)). CBC and Basic met panel tomorrow Imaging: Recent Results (from the past 360 [...] Waldron MD Electronically signed: 07/03/2016 4:45 PM Assessment and Plan: Luis Alberto Aleman Sr. is a 70 y.o. 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 PM&R consultation was reques marina by Dr. William Garcia MD to provide an opinion regarding Kevin Aleman Sr. rehabilitat ion needsstory. # Rehabilitation - Impairments: left hemiparesis, cognitive impairments, oropharyngeal dysp hagia, wheezing, hypoxia Current function: ambulating SBA w/ FWW 50 feet, min A transfers w/ FWW, min UB ADL s, mo d A LB ADL s The patient will receive the following therapies: -- PT: 60-90 minutes a day 5/7 days/ week for impairments in gait, transfers, bed mobility, ambulation, ROM, strengthening, endurance. -- OT 60-90 minutes a day, 5/7 days/ wk: impairments in ADLs and iADLs, ROM, strengthening. -- UNDERWEAR TRIMMER 60 minutes/day 5/7 days/ wk until dyspagia resolve, then increase PT and OT yo 90 mi n /day.: impairments in cognition, communication, swallow/dysphagia -- P&O: pt may need AFO or adjustable sandal for right toe curling. -- SW: discharge planning Medical problems, rehab problems: #L2-5 anterior and posterior fusion - Improving function, decreased pain -Continue PRN oxycodone -will consider starting scheduled tylenol if he has significant royce n during therapies, but hold for now due to itching with tylenol -C-brace precautions #Stroke presumably left MCA based on exam - Per patient spasticity has increased in past ye ar but in reviewing his outpatient notes it is not clear if this is true. Could be related to his spine issues vs another CVA. Either way his spasticity has to be more aggressively treated as it is contributing to his frequent falls -look into starting baclofen 10mg BID, with up-titration to 10mg TID early next week if spasticity continues -Continue Atorvastatin 40mg daily -Was taking coumadin prior to surgery which was temporarily held, c oumadin now being restarted with management per pharmacy (per admit med rec was taking 22.5m g once a week which is a unique dosing plan will try to clarify with PCP why this was used) -Re-start ASA 325mg when cleared by NSGY also -Continue losartan 50mg daily #Spasticity: worse post op. Discussed with PT re sandal with removable insert under great toe, since curling of toe limiting gait to 50 feet. # Post CVA Dysphagia: worse post op, ST modifying diet, if fever, will check CXray. May be related to post op hypoxia. #autoimmune disease - patient is taking CellCept, unclear from his notes why he is taking t his, the dose he is taking is not therapeutic either, typically the minimal therapeutic dose is 500mg BID. This does put him at an increased risk of infection. -Continue Cellcept 500mg qday for now and will get clarification fo r PCP on why he is taking it. #BPH - Palomares out and folding, initially had a palomares, and check PVRs -continue finasteride 5mg daily #History of depression - stable -Continue citalopram 40mg daily, the recommended maximum dose for g eriatric patients is 20mg daily will also clarify this with PCP #Hypoxia and Wheezing: flareup of his asthma, with sats 84% on RA, 96% on 2l, RT following, continue O@ -Continue RT # Pain: Improving, hold on scheduled tylenol due to history itching. -MSK pain Tylenol, PRN narco -Neuropathic pain gabapentin General Health Management #GI: NO bm, so bowel meds ordered, MOM tomorrow if no results -Peptic ulcer disease prophylaxis: protonix -PRN zofran for nausea -Daily docusate and senna -PRN milk of magnesia and magnesium citrate #Bladder management: palomares out, pvr's being checked prn no void 6 hrs. #DVT prophylaxis: lovenox and coumadin -Heparin 5000 units TID -Dalteparin 5000 units daily -Enoxaparin _ units daily -MARINA/SCDs #PUD prophylaxis: -Omeprazole daily #FEN: PRN #Diet: oropharyngeal dysphagia dysphagia mechanical w/ nectar thick. #IV: accesses Active Peripheral IVs PIV Line Peripheral IV Line - Single Lumen 07/05/16 1130 Left Forearm [id number] catheter syst em 22 gauge 1 day #Code Status: Full Code Individualized Overall Rehab Plan of Care: This individualized plan of care was developed today after seeing the patient and reviewing him with the therapies and nursing. ELOS 14 days Medical Prognosis: Good Anticipated interventions were described previously under assessment and plan. Functional outcomes: as described below. Primary rehab dx: CVA with right hemiparesis and spasticity Comorbid conditions: Hypoxia, dysphagia, pain Prognosis for functional improvement: Good. Anticipated interventions: Rehabilitation medicine physician for daily monitoring of care, 24 hour availability for acute medical issues, medication management, and therapeutic and di agnostic assessments. 24 hour rehabilitation nursing 7 days per week for: management/teaching of medications, bow el/bladder routine, skin care. PT for 60-90 minutes per day 5-6 days/week OT for 60-90 minutes per day 5-6 days/week UNDERWEAR TRIMMER for 60 minutes per day 2-3 days/week P&O: May need orthosis, still TBD. If so, will need 2-3 visits, 1 hour per visit. 3 days. SW for discharge planning, community resources, and family support. The patient is at risk for the following complications if inpatient rehabilitation is not r eceived: -Hypoxia and brain injury -Aspiration pneumonia -Falls with injuries -Inability to perform activities of daily living -Depression 2/2 new injury -DVT -Infection I have independently evaluated and examined the patient. And have formulated the plan as ou tlined below. This patient will require close daily supervision from a rehabilitation physic watson and would benefit from an interdisciplinary rehab team approach with the following antic ipated interventions: Rehabilitation medicine physician for daily monitoring of care, 24 hour availability for ac [place] medical issues, medication management, and therapeutic and diagnostic assessments. 24 hour rehabilitation nursing 7 days per week for: management/teaching of medications, bow el/bladder routine, skin care. PT for 60 minutes per day 5-6 days/week OT for 60 minutes per day 5-6 days/week UNDERWEAR TRIMMER for 60 minutes per day 4-6 days/week P&O: May need orthosis, still TBD. If so, will need 2-3 visits, 1 hour per visit. 3 days. SW for discharge planning, community resources, and family support. Nutrition for monitoring of nutritional status. Functional Goals to be Achieved During Intensive Rehabilitation Program: Mod i bed mobs, transfers, gait 50-150 feet with FWW, UE/LE dressing, toileting. Pain cont rolled, wheezing resolved, dysphagia resolved. Pt requires and can tolerate 3 hours of therapy per day, will participate in therapy and jimenez s sufficient carryover to benefit from rehabilitation. The patient will benefit from comprehensive inpatient rehab therapies to address the functi onal goals above. I anticipate that this patient will make meaningful progress toward their rehab goals in a reasonable amount of time. Continued progress towards rehabilitation goals cannot be achieved at a lower level of care. Discharge Plan: Home independently with giving intermittent supervision and help Estimated Length of Stay: 14 days This care plan will be updated as the patient condition changes and with input from the int erdisciplinary team. Follow up: -PCP: 1-2 weeks after d/c from hospital -Rehab FU: 3-4 weeks after rehab d/c -Home therapy vs outpatient therapy TBD -Protime/INR 2-3 days after d/c with results to Dr. Licea. Vincent Rivera MD 07/06/2016 17:35 Portions of this chart may have been created with [employer] voice recognition software. Occasi onal wrong-word or sound-alike substitutions may have occurred due to the inherent murphy itations of voice recognition software. Please read the chart carefully and recognize, using context, where these substitutions have occurred documented i n this encounter Consult Notes Mago Melendez MD - 07/07/2016 6:03 PM PDTFormatting of this note might be different fr om the original. [facility] PMG Hospitalist Consult Note Pt. Name/Age/: Kevin Aleman Sr. 70 y.o. 1945 Date of admission: 07/06/2016 Date of Consultation: 07/07/2016 Physician requesting consult: William Garcia MD Reason for Consult: Wheezing ASSESSMENT and PLAN: Aspiration pneumonitis or pneumonia versus atelectasis Plan: albuterol, IS, add Clindmycin and RT protocols HISTORY OF PRESENT ILLNESS: This is a 70 y.o. male with a history of lumbar fusion surgery who suddenly has some wheezi ng with exertion. He notes a remote history of smoking. He denies other concerns and is prog ressing with therapy on our acute rehab unit. He did have a choking incident this AM with fr ench toast bread and is aware of his swallowing. PAST MEDICAL and SURGICAL HISTORY: Past Medical [...] L4-5; Surgeon: William Garcia MD; Loca tion: [facility] MAIN OR FAMILY HISTORY: family history includes [...] at he does not use illicit drugs. CURRENT MEDICATIONS: atorvaSTATin 40 mg Oral Nightly citalopram 40 mg Oral Daily clindamycin 300 mg Oral 4 times per day docusate sodium 100 mg Oral BID enoxaparin 40 mg Subcutaneous Daily finasteride 5 mg Oral Daily losartan 50 mg Oral Daily mycophenolate 500 mg Oral QAM pantoprazole 40 mg Oral QAM AC pharmacy to dose warfarin Other Pharmacy Consult senna 8.6 mg Oral Nightly warfarin 2.5 mg Oral Daily - Warfarin ALLERGIES: Allergies Allergen Reactions Hydrocodone Itching Severe itching Acetaminophen Itching REVIEW OF SYSTEMS: Positive for some difficulty with dry bread, wheezing with exertion. A complete 10-system review was otherwise negative except as noted in the HPI. VITAL SIGNS: Temp: 36.8 C (98.2 F), Pulse: 77, Resp: 22, BP: 141/80 mmHg, SpO2 91 % on room air at f low rate 2L/min Temp Min: 36 C (96.8 F) Max: 37.1 C (98.8 F) Weight: 68.4 kg (150 lb 12.7 oz) PHYSICAL EXAMINATION: Gen Deisy - alert, cooperative and no distress Head - Normocephalic, without obvious abnormality, atraumatic Neck - supple Lungs - clear to auscultation, no wheezes or rales and unlabored breathing; limited with brace on Heart - normal rate, regular rhythm, normal S1, S2, no murmurs, rubs, clicks or gallops Abdomen - soft, non-tender, without masses or organomegaly Extremities - no peripheral edema, no clubbing or cyanosis Skin - no rashes Neurologic - Alert and oriented x 3. CN II-XII intact. DIAGNOSTIC STUDIES: Available data and images were reviewed personally. Significant results and findings are a ddressed here or in the Assessment and Plan. Lab Results Component Value Date HGB 12.2* 07/07/2016 HCT 35.4* 07/07/2016 PLT 145 07/07/2016 WBC 6.6 07/07/2016 Lab Results Component Value Date NA 139 07/07/2016 K 3.4* 07/07/2016 CL 105 07/07/2016 CO2 27 07/07/2016 CREA 0.77 07/07/2016 BUN 8 07/07/2016 No results found for: POCGLU Xr Chest 2 Vw 07/07/2016 PA AND LATERAL CHEST 07/07/2016 2:34 PM CLINICAL HISTORY: hypoxia, wheezing,p ossible aspiration. COMPARISON: Chest radiographs June 21 FINDINGS: There is calcificati on and tortuosity of the thoracic aorta. The cardiomediastinal silhouette and pulmonary vas culature are otherwise unremarkable. There is new hazy reticular opacity at the right base and in the infrahilar region. The lungs are clear elsewhere. Trace pleural effusions are n ow suggested. There is no visible pneumothorax. Generalized osteopenia is suggested. IMPR ESSION - 1. NEW RIGHT BASILAR RETICULAR OPACITY, POSSIBLY REFLECTING ATELECTASIS, ASPIRAT ION OR DEVELOPING INFILTRATE, WITH TRACE PLEURAL EFFUSIONS. Dictated and Signed by: Haroldo quiroz MD Electronically signed: 07/07/2016 4:32 PM Thank you very much for consulting us in the care of your patient. We will continue to fol low along. Total of 30 minutes were spent reviewing the chart on the floor, examining the patient, and discussing the plan of care. Mago Melendez 07/07/2016 18:03 [facility] Portions of this chart may have been created with [employer] voice recognition software. Occasi onal wrong-word or sound-alike substitutions may have occurred due to the inherent murphy itations of voice recognition software. Please read the chart carefully and recognize, using context, where these substitutions have occurred documented in this e ncounter Miscellaneous Notes Plan of Care - Abi De Dios, PT - 07/15/2016 4:57 PM PDTProblem: Patient Care Overview ( Adult) Goal: Care Team Goals & Evaluation PROBLEM-RELATED GOALS: 1. Pt will tolerate general diet/dysphagia advance diet and thin liquids with no s/s of air way compromise by 07/14/16. 2. Pt will be modified independent with ambulation in hallway by 07/14/16. 3. Pt will report a pain level of 1/10 on a pain scale by 10/30/16. 4. Pt will have no s/s of infection by 07/14/16. 5. Mr. Aleman will meet 75% of predicted incentive spirometer goal of 2100 by 07/14/16. 6. Pt will eat >75% of meals by 07/14/16 STRATEGY TO ACHIEVE GOALS: 1. Pt will participate in ST -Pt will participate in all PT activities. -assess pain level throiugh the day and provide PRN pain medications. Encouraged frequent p osition changes for comfort. - monitor VS and lab results and notify MD as need it. Instruct patient in the use of Incentive Spirometry and/or deep breath and cough. Nursing a nd Respiratory to work together to have patient use every hour while awake. Respiratory to m onitor progress 4 times daily until 75% goal met then turn over to nursing. Will f/u to adjust food and fluids to pt preferences/tolerances and provide nutritional sup plements RESTRAINT-RELATED GOALS: STRATEGIES TO ACHIEVE RESTRAINT GOALS: Outcome: Improving Physical Therapy Daily Treatment Note Patient Information Patient Name: Kevin Aleman Sr. Date of : 1945 Age: 71 y.o. Precautions/Limitations: falls, spinal, orthotic/bracing, corrective lenses, swallowing History of Presenting Problem: back and right hip pain. Pt is now s/p L2-4 LAIF; L4-L5 TLI F; L2-L5 posterior instrumentation. PT Diagnosis: Impaired mobility Start Time: 1430 Stop time: 1527 Time Calculation: 57 minutes Missed Treatment Time: 0 minutes Total Treatment Time: 57 minutes TimedTreatment Code Minutes: 57 minutes Subjective: Received pt resting in bed and agreeable to work with PT. Pt's spouse present for caregiver training. Objective: Treatment Provided: Car transfer training SBA with verbal cues for correct technique for sa fety and to maintain spinal precautions. Pt's car seat was low and cannot be adjusted. Rec ommended a higher car to use to go home. Gait training with FWW x 150' SBA with Mod verbal cues for inc.hip/knee flexion on (R) to improve toe clearance and normalize gait pattern. I nstructed pt and spouse on floor recovery and able to verbalized understanding. Education: Car transfers, proper guarding technique during walking, donning/duffing AFO, st air/curb negotiation, bed mobility. Pt spouse demonstrated the activity and verbalized unde rstanding. Patient Status/Goals: Reflects last filed data of patient status; may be from multiple contributors. Gait 20' on carpeted floor. Level of [place] : supervision required, verbal cues required Assistive Device: 2 wheeled walker (FWW) Distance (feet): 150' Gait Pattern Analysis: (.) Gait Deviations: [id number] clearance decreased, hiram decreased, double stance time in creased, weight-shifting ability decreased, limb motion velocity decreased, stride length de creased, step length decreased Impairments: pain, muscle tone abnormal, strength decreased, impaired balance, motor contro l impaired Transfers pt's spouse providing verbal cues to pt on log rolling technique. car seat was low and adv ised to bring a higher. Bed-Chair, Level of [place]: supervision required, verbal cues required Chair-Bed, Level of [place]: supervision required, verbal cues required [id number], Assistive Device: 2 wheeled walker (FWW) Sit-Stand, Level of [place]: supervision required, verbal cues required Stand-Sit, Level of [place]: supervision required, verbal cues required [id number], Assistive Device: 2 wheeled walker (FWW) Car, Level of [place]: supervision required, verbal cues required Car, Assistive Device: 2 wheeled walker (FWW) Safety Issues: sequencing ability decreased, balance decreased during turns, step length de creased, weight-shifting ability decreased Impairments: pain, decreased flexibility, muscle tone abnormal, impaired balance, strength decreased Bed Mobility Assistive Device: bed rails Roll Left, Level of [place]: modified independence Supine to Sit, Level of [place]: modified independence Sit to Supine, Level of [place]: modified independence Safety Issues: cognitive deficits limit understanding, decreased use of legs for bridging/p ushing (impaired memory) Impairments: decreased flexibility, pain, strength decreased STG GOALS Bed Mobility Goal, Activity Type: roll left/roll right, scoot/bridge, supine to sit/sit to supine [place] Level: modified independence Assistive Device: none Time to Achieve: 2 - 3 days Goal Status: met Transfer Training Goal, Activity Type: bed to chair /chair to bed, sit to stand/stand to si t [place] Level: modified independence Assistive Device: 2 wheeled walker (FWW) Time to Achieve: 2 - 3 days Goal Status: progressing toward goal Gait Training Goal, [place] Level: contact guard assist Assistive Device: 4 wheeled walker (4WW), 2 wheeled walker (FWW) Distance: 150 feet Time to Achieve: 2 - 3 days Goal Status: met Stairs Goal, [place] Level: contact guard assist Assistive Device: (Handrails) Number of Stairs: 12 Time to Achieve: 2 - 3 days Goal Status: met LTG GOALS Bed Mobility Goal, Activity Type: roll left/roll right, scoot/bridge, supine to sit/sit to supine [place] Level: independent Assistive Device: none Time to Achieve: 1 wk Goal Status: progressing toward goal Transfer Training Goal, Activity Type: bed to chair /chair to bed, sit to stand/stand to si t [place] Level: modified independence Assistive Device: 2 wheeled walker (FWW) Time to Achieve: 1 wk Goal Status: progressing toward goal Gait Training Goal, [place] Level: modified independence Assistive Device: 2 wheeled walker (FWW) Distance: 300 feet Time to Achieve: 1 wk Goal Status: progressing toward goal Number of Stairs: 16 Time to Achieve: 1 wk Goal Status: continued Assessment: Pt safer to use FWW than 4WW d/t inability to remember to lock. Pt cont.to hav e LBP radiating to (B) hips and groin. Pt still dragging (R) foot despite adjustments don o n AFO d/t dec.hip flexion During swing phase of gait. Recommending 1 more session of careg iver training to assess if pt's spouse retaining instructions. Cont. PT to maximizw full re hab potential for safe d/c to home. Physical Therapy Anticipated Discharge Needs are: home with assist, home with home health Have the anticipated discharge needs changed? no Post discharge physical therapy recommendation: Home health PT Plan for next treatment: IRF,BID, CW1P FWW, progressive gait, balance, caregiver training Electronically signed by: ABI DE DIOS, PT, 07/15/2016 16:46 lan of Care - Nicolle Antony COTA - 07/15/2016 2:49 PM PDTProblem: Patient Care Overview (Adult) Goal: Care Team Goals & Evaluation PROBLEM-RELATED GOALS: 1. Pt will tolerate general diet/dysphagia advance diet and thin liquids with no s/s of air way compromise by 07/14/16. 2. Pt will be modified independent with ambulation in hallway by 07/14/16. 3. Pt will report a pain level of 1/10 on a pain scale by 07/14/16. 4. Pt will have no s/s of infection by 07/14/16. 5. Mr. Aleman will meet 75% of predicted incentive spirometer goal of 2100 by 07/14/16. 6. Pt will eat >75% of meals by 07/14/16 STRATEGY TO ACHIEVE GOALS: 1. Pt will participate in ST -Pt will participate in all PT activities. -assess pain level throiugh the day and provide PRN pain medications. Encouraged frequent p osition changes for comfort. - monitor VS and lab results and notify MD as need it. Instruct patient in the use of Incentive Spirometry and/or deep breath and cough. Nursing a nd Respiratory to work together to have patient use every hour while awake. Respiratory to m onitor progress 4 times daily until 75% goal met then turn over to nursing. Will f/u to adjust food and fluids to pt preferences/tolerances and provide nutritional sup plements RESTRAINT-RELATED GOALS: STRATEGIES TO ACHIEVE RESTRAINT GOALS: Outcome: Improving Occupational Therapy Daily Treatment Note Patient Information Patient Name: Kevin Aleman Sr. Date of : 1945 Age: 71 y.o. Precautions/Limitations: falls, spinal, orthotic/bracing, corrective lenses, swallowing Start Time: 1300 Stop time: 1345 Time Calculation: 45 minutes Missed Treatment Time: 10 minutes Total Treatment Time: 45 minutes TimedTreatment Code Minutes: 45 minutes Frequency: daily Subjective: Pt in bed, agreeable to with with OT thisafternoon Objective: Pt in bed, pt's , Delilah, present for caregiver training. Pt's asked for training for donning MARINA Hose. Showed Delilah trick using grocery bag and powder to get Sock over foot /heal easier. She demonstrated understanding of technique. Pt reports she understand her hu sbands precautions d/t having had back surgery her self. Worked with pt and his for sa fe positioning in side lying using pillows. Pt worked on log roll ttechnique, and caregive r training with toileting. Pt requested to lay back down at the end of his OT swession. Education: caregiver training Treatment Provided: caregiver training, spinal precaution review. Patient Status/Goals Reflects last filed data of patient status; may be from multiple contributors. STG Goals Transfer Training Goal, Activity Type: toilet [place] Level: minimum assist (75% patient effort) Assistive Device: 2 wheeled walker (FWW) Time to Achieve: 5 - 7 days Goal Status: met Grooming Goal, [place] Level: set up required, verbal cues required Adaptive Equipment: none Position: sitting in chair Time to Achieve: 2 - 3 days Goal Status: met Bathing Goal, [place] Level: minimum assist (75% patient effort) Adaptive Equpiment: grab bars, scrub brush, shower chair Time to Achieve: 5 - 7 days Goal Status: met Toileting Goal, [place] Level: minimum assist (75% patient effort), verbal cues requir ed Assistive Device: toilet paper aid Time to Achieve: 5 - 7 days Goal Status: met UB Dressing Goal, [place] Level: minimum assist (75% patient effort), verbal cues requ ired Adaptive Equipment: none Time to Achieve: 5 - 7 days Goal Status: met LB Dressing Goal, [place] Level: moderate assist (50% patient effort) Adaptive Equipment: transmitter engineer in charge, dressing stick, shoe horn, long handled Time to Achieve: 5 - 7 days Goal Status: met IADL Goal: LIght snack/meal prep w/ supervision. Time to Achieve: 5 - 7 days Goal Status: continued LTG Goals Transfer Training Goal, Activity Type: walk-in shower, toilet [place] Level: contact guard assist Assistive Device: 2 wheeled walker (FWW), grab bars Time to Achieve: 5 - 7 days Goal Status: met Grooming Goal, [place] Level: set up required Adaptive Equipment: none Position: sitting in chair Time to Achieve: 5 - 7 days Goal Status: met Bathing Goal, [place] Level: set up required, verbal cues required Adaptive Equpiment: grab bars, scrub brush Time to Achieve: 5 - 7 days Goal Status: met Toileting Goal, [place] Level: supervision required Assistive Device: none Time to Achieve: 5 - 7 days Goal Status: met UB Dressing Goal, [place] Level: set up required Adaptive Equipment: none Time to Achieve: 5 - 7 days Goal Status: met LB Dressing Goal, [place] Level: verbal cues required, set up required Adaptive Equipment: transmitter engineer in charge, laces, elastic, shoe horn, long handled, sock-aid Time to Achieve: 5 - 7 days Goal Status: continued, progressing toward goal IADL Goal: Pt will prepare light snack w/ mod I. Time to Achieve: 1 wk Goal Status: continued Assessment: Pt and his interact well together, Pasty provided good VC's through out s ession. Pt's verbalized understanding that pt will need close supervision for precauti on with mobility. Occupational Therapy Anticipated Discharge Needs are: home with home health Have the anticipated discharge needs changed? no Post discharge occupational therapy recommendation: On going OT through [facility] s for safe transition home at D/C. Plan for next treatment: 1P, DV, ADL's Electronically signed by: CHEMO Ivy, 07/15/2016 14:42 lan of Care - Leandra Hook, Speech Pathologist - 07/15/2016 2:26 PM PDTFormatting of this note might b e different from the original. Problem: Patient Care Overview (Adult) Goal: Care Team Goals & Evaluation PROBLEM-RELATED GOALS: 1. Pt will tolerate general diet/dysphagia advance diet and thin liquids with no s/s of air way compromise by 07/14/16. 2. Pt will be modified independent with ambulation in hallway by 07/14/16. 3. Pt will report a pain level of 1/10 on a pain scale by 07/14/16. 4. Pt will have no s/s of infection by 07/14/16. 5. Mr. Aleman will meet 75% of predicted incentive spirometer goal of 2100 by 07/14/16. 6. Pt will eat >75% of meals by 07/14/16 STRATEGY TO ACHIEVE GOALS: 1. Pt will participate in ST -Pt will participate in all PT activities. -assess pain level throiugh the day and provide PRN pain medications. Encouraged frequent p osition changes for comfort. - monitor VS and lab results and notify MD as need it. Instruct patient in the use of Incentive Spirometry and/or deep breath and cough. Nursing a nd Respiratory to work together to have patient use every hour while awake. Respiratory to m onitor progress 4 times daily until 75% goal met then turn over to nursing. Will f/u to adjust food and fluids to pt preferences/tolerances and provide nutritional sup plements RESTRAINT-RELATED GOALS: STRATEGIES TO ACHIEVE RESTRAINT GOALS: Speech Therapy Acute Treatment Note Patient Information Patient Name: Kevin Aleman Sr. Date of : 1945 Age: 71 y.o. History Encounter Diagnoses Code Name Primary? 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 Precautions/Limitations: falls, spinal, orthotic/bracing, corrective lenses, swallowing Summary: Pt seen upright in bed. C brace in place. Pt reported improved swallow but c/o co ntinued pain in his chest following swallow d/t "narrowing of the esophagus". Pt was able to recall 80% of precautions with min cues. UNDERWEAR TRIMMER explained the strategy behind STA (stop think act) and provided oral and written cues to the Pt to prevent impulsivity. UNDERWEAR TRIMMER discussed STA strategy with OTs for continuity and adherance to back precautions. Speech language pathology will follow Kevin Aleman Sr. 3 times/wk until discharge from therapy or discharged from the hospital. Speech Language Pathology Anticipated Discharge Needs are: home with family/caregiver Post discharge speech language pathology recommendation: no further Speech Therapy Identified Problems Needing Skilled Intervention: MIld cognitive deficits Planned Interventions: diet texture modification, compensatory strategies Patient Status/Goals Reflects last filed data of patient status; may be from multiple contributors. FIM FIM Communication Comprehension - Auditory: 6 Comprehension - Visual: 6 Comprehension Score Evidence: 6 Uses Glasses Expression - Vocal: 6 Expression - Non Vocal: 6 Expression Score Evidence: 6 Mild Diff Complx, 6 Extra Time FIM Social/Cognition Social Interaction: 6 Social Interaction Score Evidence: 6 Meds For Control Problem Solvin Problem Solving Score Evidence: 5 Daily Prbs 91-99% Memory: 5 Memory Score Evidence: 5 Recalls 91-99% NOMS (National Outcome Measures-Standardized) FCM/NOMS Swallowin/CJ PO w/min diet rest, min cues Cognitive Mood/Behavior: calm, cooperative Orientation: oriented x 4 Attention: mild impairment Speech: logical, clear, spontaneous Personal Safety: mild impairment Short/Fci Memory: mild impairment, short term memory Problem Solving: mild impairment STG Goals Cognition Goal: Pt will recall back precautions verbally with visual aid for assistance to improve safety over three consecutive sessions. Time to Achieve Goals: 2 - 3 days Goal Status: continued Dysphagia Goal: Pt will tolerate level 3 dysphagia advanced diet and thin liquids with no s /s of airway compromise by 07/08/16. Time to Achieve Goals: 2 days Goal Status: continued, met LTG Goals Cognition Goal: Pt will recall back precautions to 100% accuracy indep to imrprove safety w ith mobilizing. Time to Achieve Goals: 2 - 3 days Goal Status: continued Today's Treatment Start Time: 1155 Stop time: 1210 Time Calculation: 15 minutes Missed Treatment Time: 0 minutes Total Treatment Time: 15 minutes TimedTreatment Code Minutes: 0 minutes Plan for next treatment: reduce impulsivity with STA (Stop Think Act) Electronically signed by: Leandra Hook, SPEECH PATHO, 07/15/2016 14:24 la n of Care - Nikki Maguire RN - 07/15/2016 1:41 PM PDTProblem: Patient Care Overview (Adult) Goal: Care Team Goals & Evaluation PROBLEM-RELATED GOALS: 1. Pt will tolerate general diet/dysphagia advance diet and thin liquids with no s/s of air way compromise by 07/14/16. 2. Pt will be modified independent with ambulation in hallway by 07/14/16. 3. Pt will report a pain level of 1/10 on a pain scale by 07/14/16. 4. Pt will have no s/s of infection by 07/14/16. 5. Mr. Aleman will meet 75% of predicted incentive spirometer goal of 2100 by 07/14/16. 6. Pt will eat >75% of meals by 07/14/16 STRATEGY TO ACHIEVE GOALS: 1. Pt will participate in ST -Pt will participate in all PT activities. -assess pain level throiugh the day and provide PRN pain medications. Encouraged frequent p osition changes for comfort. - monitor VS and lab results and notify MD as need it. Instruct patient in the use of Incentive Spirometry and/or deep breath and cough. Nursing a nd Respiratory to work together to have patient use every hour while awake. Respiratory to m onitor progress 4 times daily until 75% goal met then turn over to nursing. Will f/u to adjust food and fluids to pt preferences/tolerances and provide nutritional sup plements RESTRAINT-RELATED GOALS: STRATEGIES TO ACHIEVE RESTRAINT GOALS: Outcome: Improving Goal Evaluation: alert and pleasant one person assist swallows pills with health shakes is on a dysphagia a dvanced diet one person assist with sba grade b brace incisions to back and aleft flank open to air takes one oxycodone for back pain lsc dim in bases bm on the c/o burning with u rination ua negative lan of Care - Patsy s-Violetta Clark, SERVICES HOST - 07/15/2016 12:56 PM PDTProblem: Patient Care Overview (Adult) Goal: Care Team Goals & Evaluation PROBLEM-RELATED GOALS: 1. Pt will tolerate general diet/dysphagia advance diet and thin liquids with no s/s of air way compromise by 07/14/16. 2. Pt will be modified independent with ambulation in hallway by 07/14/16. 3. Pt will report a pain level of 1/10 on a pain scale by 07/14/16. 4. Pt will have no s/s of infection by 07/14/16. 5. Mr. Aleman will meet 75% of predicted incentive spirometer goal of 2100 by 07/14/16. 6. Pt will eat >75% of meals by 07/14/16 STRATEGY TO ACHIEVE GOALS: 1. Pt will participate in ST -Pt will participate in all PT activities. -assess pain level throiugh the day and provide PRN pain medications. Encouraged frequent p osition changes for comfort. - monitor VS and lab results and notify MD as need it. Instruct patient in the use of Incentive Spirometry and/or deep breath and cough. Nursing a nd Respiratory to work together to have patient use every hour while awake. Respiratory to m onitor progress 4 times daily until 75% goal met then turn over to nursing. Will f/u to adjust food and fluids to pt preferences/tolerances and provide nutritional sup plements RESTRAINT-RELATED GOALS: STRATEGIES TO ACHIEVE RESTRAINT GOALS: Outcome: Improving Goal Evaluation: Mr. Aleman alert and following commands, patient is able to help with his respiratory thera py. Patient is bilateral clear, no distress noted at this time. Patient is concern about hav ing to wear O2 @ home. Setting up for overnight oxymetry. lan o f Mayte - Abi De Dios, PT - 07/15/2016 12:18 PM PDTProblem: Patient Care Overview (Adult) Goal: Care Team Goals & Evaluation PROBLEM-RELATED GOALS: 1. Pt will tolerate general diet/dysphagia advance diet and thin liquids with no s/s of air way compromise by 07/14/16. 2. Pt will be modified independent with ambulation in hallway by 07/14/16. 3. Pt will report a pain level of 1/10 on a pain scale by 07/14/16. 4. Pt will have no s/s of infection by 07/14/16. 5. Mr. Aleman will meet 75% of predicted incentive spirometer goal of 2100 by 07/14/16. 6. Pt will eat >75% of meals by 07/14/16 STRATEGY TO ACHIEVE GOALS: 1. Pt will participate in ST -Pt will participate in all PT activities. -assess pain level throiugh the day and provide PRN pain medications. Encouraged frequent p osition changes for comfort. - monitor VS and lab results and notify MD as need it. Instruct patient in the use of Incentive Spirometry and/or deep breath and cough. Nursing a nd Respiratory to work together to have patient use every hour while awake. Respiratory to m onitor progress 4 times daily until 75% goal met then turn over to nursing. Will f/u to adjust food and fluids to pt preferences/tolerances and provide nutritional sup plements RESTRAINT-RELATED GOALS: STRATEGIES TO ACHIEVE RESTRAINT GOALS: Physical Therapy Daily Treatment Note Patient Information Patient Name: Kevin Aleman . Date of : 1945 Age: 71 y.o. Precautions/Limitations: falls, spinal, orthotic/bracing, corrective lenses, swallowing History of Presenting Problem: back and right hip pain. Pt is now s/p L2-4 LAIF; L4-L5 TLI F; L2-L5 posterior instrumentation. PT Diagnosis: Impaired mobility Start Time: 1011 Stop time: 1101 Time Calculation: 50 minutes Missed Treatment Time: 0 minutes Total Treatment Time: 50 minutes TimedTreatment Code Minutes: 50 minutes Subjective: Received pt resting in bed and agreeable to work with PT. Pt maintained SpO2 a leslie 90% on room air with activity. Objective: Treatment Provided: Gait training with 4WW x 160' with Mod verbal cues for increased (R) hi p/knee flex during swing to inc.toe clearance and to normalize gait pattern. Stair training x 12 steps SBA with Min verbal cues for which leg to lead for safety. Stepping up/down 6" platform with 4WW, assist to lift 4WW to maintain lifting precautions. Education: locking 4WW brakes for safety and correct use of AD. Patient Status/Goals: Reflects last filed data of patient status; may be from multiple contributors. Gait verbal cues for inc. step length and toe clearance on (R) Level of [place] : supervision required, verbal cues required Assistive Device: 4 wheeled walker (4WW) Distance (feet): 160' Gait Pattern Analysis: (.) Gait Deviations: [id number] clearance decreased, hiram decreased, double stance time in creased, weight-shifting ability decreased, limb motion velocity decreased, stride length de creased, step length decreased Impairments: pain, muscle tone abnormal, strength decreased, impaired balance, motor contro l impaired Stairs pt was able to complete stair training with v. cueing for sequencing and demo. Number of Stairs: 12 Handrail Location: both sides Level of [place]: supervision required, verbal cues required Assistive Device: none Technique Used: step to step (ascending), step to step (descending) Safety Issues: weight-shifting ability decreased, balance decreased during turns Impairments: pain, decreased flexibility, strength decreased, impaired balance, motor contr ol impaired, muscle tone abnormal Transfers cont.to need verbal cues on locking brakes for safe transfers. Bed-Chair, Level of [place]: supervision required, verbal cues required Chair-Bed, Level of [place]: supervision required, verbal cues required [id number], Assistive Device: 4 wheeled walker (4WW) Sit-Stand, Level of [place]: supervision required, verbal cues required Stand-Sit, Level of [place]: supervision required, verbal cues required [id number], Assistive Device: 4 wheeled walker (4WW) Safety Issues: sequencing ability decreased, balance decreased during turns, step length de creased, weight-shifting ability decreased Impairments: pain, decreased flexibility, muscle tone abnormal, impaired balance, strength decreased Bed Mobility blocked practice for Assistive Device: bed rails Roll Left, Level of [place]: modified independence Supine to Sit, Level of [place]: modified independence Sit to Supine, Level of [place]: modified independence Safety Issues: cognitive deficits limit understanding, decreased use of legs for bridging/p ushing (impaired memory) Impairments: decreased flexibility, pain, strength decreased STG GOALS Bed Mobility Goal, Activity Type: roll left/roll right, scoot/bridge, supine to sit/sit to supine [place] Level: modified independence Assistive Device: none Time to Achieve: 2 - 3 days Goal Status: met Transfer Training Goal, Activity Type: bed to chair /chair to bed, sit to stand/stand to si t [place] Level: modified independence Assistive Device: 2 wheeled walker (FWW) Time to Achieve: 2 - 3 days Goal Status: progressing toward goal Gait Training Goal, [place] Level: contact guard assist Assistive Device: 4 wheeled walker (4WW), 2 wheeled walker (FWW) Distance: 150 feet Time to Achieve: 2 - 3 days Goal Status: met Stairs Goal, [place] Level: contact guard assist Assistive Device: (Handrails) Number of Stairs: 12 Time to Achieve: 2 - 3 days Goal Status: met LTG GOALS Bed Mobility Goal, Activity Type: roll left/roll right, scoot/bridge, supine to sit/sit to supine [place] Level: independent Assistive Device: none Time to Achieve: 1 wk Goal Status: progressing toward goal Transfer Training Goal, Activity Type: bed to chair /chair to bed, sit to stand/stand to si t [place] Level: modified independence Assistive Device: 2 wheeled walker (FWW) Time to Achieve: 1 wk Goal Status: progressing toward goal Gait Training Goal, [place] Level: modified independence Assistive Device: 2 wheeled walker (FWW) Distance: 300 feet Time to Achieve: 1 wk Goal Status: progressing toward goal Number of Stairs: 16 Time to Achieve: 1 wk Goal Status: progressing toward goal FIM: FIM Transfers Bed/Chair/Wheelchair: 5 Bed/Chair/WC Score Evidence: 5 Verbal Cues, 5 Safety Supervision FIM Locomotion Walk: 5 Distance Walked (feet): 160 feet Walk Score Evidence: 5 Supervise/150 ft+, 5 Verbal Cues/150 ft+ FIM Modifier DC Locomotion: walk FIM Modifier Walk Distance: 3 150 feet Stairs: 5 Stairs Score Evidence: 5 Safety Sup 12-14 Stairs, 5 Verbal Cues 12-14 Stairs Assessment: Pt is safer using FWW than 4WW. Pt required Mod verbal cues to lock brakes juan carlos or to getting up and sitting and pt was trying to walk with the walker behind him when he st ood up from the walker. No significant inc.in pain during activities today. Pt's activity tolerance is better today. Barriers to pt's progress are LBP and impaired memory. Cont. PT t o improve mobility for safe d/c to home. Physical Therapy Anticipated Discharge Needs are: home with home health Have the anticipated discharge needs changed? no Post discharge physical therapy recommendation: Home Health PT Plan for next treatment: IRF;1-2P; KH; progressive gait, balance, strengthening, and functi onal mobility training Electronically signed by: ABI DE DIOS, PT, 07/15/2016 12:09 lan of Care - nasrin thompson Nicolle Ruiz MCLAIN - 07/15/2016 11:29 AM PDTProblem: Patient Care Overview (Adult) Goal: Care Team Goals & Evaluation PROBLEM-RELATED GOALS: 1. Pt will tolerate general diet/dysphagia advance diet and thin liquids with no s/s of air way compromise by 07/14/16. 2. Pt will be modified independent with ambulation in hallway by 07/14/16. 3. Pt will report a pain level of 1/10 on a pain scale by 07/14/16. 4. Pt will have no s/s of infection by 07/14/16. 5. Mr. Aleman will meet 75% of predicted incentive spirometer goal of 2100 by 07/14/16. 6. Pt will eat >75% of meals by 07/14/16 STRATEGY TO ACHIEVE GOALS: 1. Pt will participate in ST -Pt will participate in all PT activities. -assess pain level throiugh the day and provide PRN pain medications. Encouraged frequent p osition changes for comfort. - monitor VS and lab results and notify MD as need it. Instruct patient in the use of Incentive Spirometry and/or deep breath and cough. Nursing a nd Respiratory to work together to have patient use every hour while awake. Respiratory to m onitor progress 4 times daily until 75% goal met then turn over to nursing. Will f/u to adjust food and fluids to pt preferences/tolerances and provide nutritional sup plements RESTRAINT-RELATED GOALS: STRATEGIES TO ACHIEVE RESTRAINT GOALS: Outcome: Improving Occupational Therapy Daily Treatment Note Patient Information Patient Name: Kevin Aleman Sr. Date of : 1945 Age: 71 y.o. Precautions/Limitations: falls, spinal, orthotic/bracing, corrective lenses, swallowing Start Time: 704 Stop time: 819 Time Calculation: 75 minutes Missed Treatment Time: 10 minutes Total Treatment Time: 75 minutes TimedTreatment Code Minutes: 75 minutes Frequency: daily Subjective: "I just want to go home." Objective: Pt agreeable to shower this AM. Pt agreeable to ambulate to/from shower room. he showered from sitting, VC's for spinal precautions throughout session. See below for pt's level of assist. Pt stood at sink for grooming. Pt agrees to sit up in chair for breakfast. Education: spinal precaution review Treatment Provided: Morning ADL's Patient Status/Goals Reflects last filed data of patient status; may be from multiple contributors. ADLs Bathing, Level of [place]: verbal cues required, supervision required, set up required Assistive Device: grab bars, hand-held shower head, long-handled sponge Bathing Assess/Train, Position: sitting Bathing Assess/Train, Impairments: ROM decreased, strength decreased, pain . UB Dressing, Level of [place]: verbal cues required, set up required Assistive Device: none UB Dressing Assess/Train, Position: sitting . LB, Level of [place]: minimum assist (75% patient effort), set up required, verbal cue s required Assistive Device: transmitter engineer in charge, sock-aid LB Dressing Assess/Train, Position: sitting, standing LB Dressing Assess/Train, Impairments: ROM decreased, strength decreased, pain . Toileting, Level of [place]: verbal cues required, set up required, supervision requir ed Assistive Device: urinal Toileting Assess/Train, Position: sitting, standing Toileting Assess/Train, Impairments: decreased flexibility, ROM decreased, strength decreas ed, pain . Grooming, Level of [place]: supervision required Assistive Device: electric toothbrush Grooming Assess/Train, Position: standing Grooming Assess/Train, Impairments: strength decreased, pain Transfers Toilet, Level of [place]: verbal cues required, supervision required Toilet, Assistive Device: 2 wheeled walker (FWW), grab bars Walk-In Shower, Level of [place]: verbal cues required, supervision required Walk-in shower, Assistive Device: 2 wheeled walker (FWW), grab bars, shower chair Safety Issues: step length decreased Impairments: ROM decreased, impaired balance, pain STG Goals Transfer Training Goal, Activity Type: toilet [place] Level: minimum assist (75% patient effort) Assistive Device: 2 wheeled walker (FWW) Time to Achieve: 5 - 7 days Goal Status: met Grooming Goal, [place] Level: set up required, verbal cues required Adaptive Equipment: none Position: sitting in chair Time to Achieve: 2 - 3 days Goal Status: met Bathing Goal, [place] Level: minimum assist (75% patient effort) Adaptive Equpiment: grab bars, scrub brush, shower chair Time to Achieve: 5 - 7 days Goal Status: met Toileting Goal, [place] Level: minimum assist (75% patient effort), verbal cues requir ed Assistive Device: toilet paper aid Time to Achieve: 5 - 7 days Goal Status: met UB Dressing Goal, [place] Level: minimum assist (75% patient effort), verbal cues requ ired Adaptive Equipment: none Time to Achieve: 5 - 7 days Goal Status: met LB Dressing Goal, [place] Level: moderate assist (50% patient effort) Adaptive Equipment: transmitter engineer in charge, dressing stick, shoe horn, long handled Time to Achieve: 5 - 7 days Goal Status: met IADL Goal: LIght snack/meal prep w/ supervision. Time to Achieve: 5 - 7 days Goal Status: continued LTG Goals Transfer Training Goal, Activity Type: walk-in shower, toilet [place] Level: contact guard assist Assistive Device: 2 wheeled walker (FWW), grab bars Time to Achieve: 5 - 7 days Goal Status: met Grooming Goal, [place] Level: set up required Adaptive Equipment: none Position: sitting in chair Time to Achieve: 5 - 7 days Goal Status: met Bathing Goal, [place] Level: set up required, verbal cues required Adaptive Equpiment: grab bars, scrub brush Time to Achieve: 5 - 7 days Goal Status: met Toileting Goal, [place] Level: supervision required Assistive Device: none Time to Achieve: 5 - 7 days Goal Status: met UB Dressing Goal, [place] Level: set up required Adaptive Equipment: none Time to Achieve: 5 - 7 days Goal Status: met LB Dressing Goal, [place] Level: verbal cues required, set up required Adaptive Equipment: transmitter engineer in charge, laces, elastic, shoe horn, long handled, sock-aid Time to Achieve: 5 - 7 days Goal Status: continued, progressing toward goal IADL Goal: Pt will prepare light snack w/ mod I. Time to Achieve: 1 wk Goal Status: continued FIM: FIM Transfers Toilet: 5 Toilet Transfer Evidence: 5 Verbal Cues, 5 Safety Supervision Tub / Shower: 5 Tub/Shower Score Evidence: 5 Verbal Cues, 5 Safety Supervision FIM Self Care Groomin Grooming Score Evidence: 5 Safety Supervison Bathin Bathing Score Evidence: 5 Verbal Cues, 5 Safety Supervison Dressing - Upper Body: 5 Dressing Upper Score Evidence: 5 Get Clothing, 5 Safety Supervision Dressing - Lower Body: 4 Dressing Lower Score Evidence: On/Off R Shoe Toiletin Toileting Score Evidence: 5 Safety Supervision, 5 Verbal Cues Assessment: Pt continues to struggle with precautions with ADL's. Pt required increased VC 's with twisting durring ambulation every time he stopped to look in a different direction. Occupational Therapy Anticipated Discharge Needs are: home with home health Have the anticipated discharge needs changed? no Post discharge occupational therapy recommendation: Home health services Plan for next treatment: 1P, DV, Caregiver training, C-Brace management training Electronically signed by: CHEMO Ivy, 07/15/2016 11:18 lan of Care - Hiren, Nicole Norton RN - 07/15/2016 5:18 AM PDTProblem: Patient Care Overview (Adult) Goal: Care Team Goals & Evaluation PROBLEM-RELATED GOALS: 1. Pt will tolerate general diet/dysphagia advance diet and thin liquids with no s/s of air way compromise by 07/14/16. 2. Pt will be modified independent with ambulation in hallway by 07/14/16. 3. Pt will report a pain level of 1/10 on a pain scale by 07/14/16. 4. Pt will have no s/s of infection by 07/14/16. 5. Mr. Aleman will meet 75% of predicted incentive spirometer goal of 2100 by 07/14/16. 6. Pt will eat >75% of meals by 07/14/16 STRATEGY TO ACHIEVE GOALS: 1. Pt will participate in ST -Pt will participate in all PT activities. -assess pain level throiugh the day and provide PRN pain medications. Encouraged frequent p osition changes for comfort. - monitor VS and lab results and notify MD as need it. Instruct patient in the use of Incentive Spirometry and/or deep breath and cough. Nursing a nd Respiratory to work together to have patient use every hour while awake. Respiratory to m onitor progress 4 times daily until 75% goal met then turn over to nursing. Will f/u to adjust food and fluids to pt preferences/tolerances and provide nutritional sup plements RESTRAINT-RELATED GOALS: STRATEGIES TO ACHIEVE RESTRAINT GOALS: Outcome: Improving Goal Evaluation: Pt slept well between care. Uses call light appropriately. Was confused x 1 upon waking, n eeded cueing for date. Back pain continues, requests oxycodone as needed. Had some trouble w ith HS med swallowing, felt like some pills were stuck in his throat. Incisions to lower [place] and left flank healing well. Pt has LSO in place at all times. RLE weak, 4/5. LLE 5/5. SBA with FWW. Needs cueing with precautions. lan of Care - Be ckner, Majo Woods, MCLAIN - 2016 3:51 PM PDTProblem: Patient Care Overview (Adult) Goal: Care Team Goals & Evaluation PROBLEM-RELATED GOALS: 1. Pt will tolerate general diet/dysphagia advance diet and thin liquids with no s/s of air way compromise by 07/14/16. 2. Pt will be modified independent with ambulation in hallway by 07/14/16. 3. Pt will report a pain level of 1/10 on a pain scale by 07/14/16. 4. Pt will have no s/s of infection by 07/14/16. 5. Mr. Aleman will meet 75% of predicted incentive spirometer goal of 2100 by 07/14/16. 6. Pt will eat >75% of meals by 07/14/16 STRATEGY TO ACHIEVE GOALS: 1. Pt will participate in ST -Pt will participate in all PT activities. -assess pain level throiugh the day and provide PRN pain medications. Encouraged frequent p osition changes for comfort. - monitor VS and lab results and notify MD as need it. Instruct patient in the use of Incentive Spirometry and/or deep breath and cough. Nursing a nd Respiratory to work together to have patient use every hour while awake. Respiratory to m onitor progress 4 times daily until 75% goal met then turn over to nursing. Will f/u to adjust food and fluids to pt preferences/tolerances and provide nutritional sup plements RESTRAINT-RELATED GOALS: STRATEGIES TO ACHIEVE RESTRAINT GOALS: Occupational Therapy Daily Treatment Note Patient Information Patient Name: Kevin Aleman . Date of : 1945 Age: 71 y.o. Precautions/Limitations: falls, spinal, orthotic/bracing, corrective lenses, swallowing Start Time: 0950 Stop time: 1040 Time Calculation: 50 minutes Missed Treatment Time: 10 minutes Total Treatment Time: 50 minutes TimedTreatment Code Minutes: 50 minutes Frequency: daily Subjective: Patient stated that it was his birthday today, and he expected to see his later in the day. Objective: Patient up with NSG, resumed care. Patient ambulated in to BR with FWW. He stood at sink fo r grooming with SBA for safety. Patient then ambulated back to room and sat in chair. Lulu valdez required assist to manage O2 line during in room ambulation. Patient used transmitter engineer in charge to don p ants after set-up, Min A for R shoe/brace, but able to don L shoe using transmitter engineer in charge to fasten ve lcro. Patient's still not present for training, but friends entered. Reviewed C-brace s harman precautions. Chair alarm activated, call light in reach. Education: spinal precautions and ADLs, AE Treatment Provided: ADL training Patient Status/Goals Reflects last filed data of patient status; may be from multiple contributors. ADLs Assist with R shoe/brace only. LB, Level of [place]: minimum assist (75% patient effort) Assistive Device: long-handled shoe horn, transmitter engineer in charge, sock-aid LB Dressing Assess/Train, Position: sitting, standing LB Dressing Assess/Train, Impairments: ROM decreased, strength decreased, pain Grooming, Level of [place]: supervision required Assistive Device: electric razor Grooming Assess/Train, Position: standing Grooming Assess/Train, Impairments: strength decreased, pain Transfers Sit-Stand, Level of [place]: supervision required Stand-Sit, Level of [place]: supervision required [id number], Assistive Device: 2 wheeled walker (FWW) Safety Issues: step length decreased Impairments: ROM decreased, impaired balance, pain STG Goals Transfer Training Goal, Activity Type: toilet [place] Level: minimum assist (75% patient effort) Assistive Device: 2 wheeled walker (FWW) Time to Achieve: 5 - 7 days Goal Status: continued, progressing toward goal Grooming Goal, [place] Level: set up required, verbal cues required Adaptive Equipment: none Position: sitting in chair Time to Achieve: 2 - 3 days Goal Status: met Bathing Goal, [place] Level: minimum assist (75% patient effort) Adaptive Equpiment: grab bars, scrub brush, shower chair Time to Achieve: 5 - 7 days Goal Status: continued, not addressed Toileting Goal, [place] Level: minimum assist (75% patient effort), verbal cues requir ed Assistive Device: toilet paper aid Time to Achieve: 5 - 7 days Goal Status: continued UB Dressing Goal, [place] Level: minimum assist (75% patient effort), verbal cues requ ired Adaptive Equipment: none Time to Achieve: 5 - 7 days Goal Status: continued LB Dressing Goal, [place] Level: moderate assist (50% patient effort) Adaptive Equipment: transmitter engineer in charge, dressing stick, shoe horn, long handled Time to Achieve: 5 - 7 days Goal Status: met IADL Goal: LIght snack/meal prep w/ supervision. Time to Achieve: 5 - 7 days Goal Status: continued LTG Goals Transfer Training Goal, Activity Type: walk-in shower, toilet [place] Level: contact guard assist Assistive Device: 2 wheeled walker (FWW), grab bars Time to Achieve: 5 - 7 days Goal Status: continued, progressing toward goal Grooming Goal, [place] Level: set up required Adaptive Equipment: none Position: sitting in chair Time to Achieve: 5 - 7 days Goal Status: continued, progressing toward goal Bathing Goal, [place] Level: set up required, verbal cues required Adaptive Equpiment: grab bars, scrub brush Time to Achieve: 5 - 7 days Goal Status: continued Toileting Goal, [place] Level: supervision required Assistive Device: none Time to Achieve: 5 - 7 days Goal Status: continued UB Dressing Goal, [place] Level: set up required Adaptive Equipment: none Time to Achieve: 5 - 7 days Goal Status: continued LB Dressing Goal, [place] Level: verbal cues required, set up required Adaptive Equipment: transmitter engineer in charge, laces, elastic, shoe horn, long handled, sock-aid Time to Achieve: 5 - 7 days Goal Status: continued, progressing toward goal IADL Goal: Pt will prepare light snack w/ mod I. Time to Achieve: 1 wk Goal Status: continued FIM: FIM Transfers Bed/Chair/Wheelchair: 5 Bed/Chair/WC Score Evidence: 5 Verbal Cues, 5 Safety Supervision Toilet: 5 Toilet Transfer Evidence: 5 Safety Supervision, 5 Verbal Cues Tub / Shower: 5 Tub/Shower Score Evidence: 5 Verbal Cues, 5 Safety Supervision FIM Self Care Eatin Eating Score Evidence: 6 Extra Time Groomin Grooming Score Evidence: 5 Safety Supervison Bathin Bathing Score Evidence: 5 Safety Supervison, 5 Verbal Cues Dressing - Upper Body: 5 Dressing Upper Score Evidence: 5 Needs Supervision Dressing - Lower Body: 4 Dressing Lower Score Evidence: 4 Steadying Toiletin Toileting Score Evidence: 5 Verbal Cues, 5 Safety Supervision FIM Social/Cognition Social Interaction: 6 Social Interaction Score Evidence: 6 Meds For Control, 6 Extra Time Problem Solvin Problem Solving Score Evidence: 5 Daily Prbs 91-99% Memory: 6 Memory Score Evidence: 6 Extra Time FIM Locomotion Walk: 5 Distance Walked (feet): 160 feet Walk Score Evidence: 5 Supervise/150 ft+, 5 Verbal Cues/150 ft+ FIM Modifier DC Locomotion: walk FIM Modifier Walk Distance: 3 150 feet Stairs: 0 Stairs Score Evidence: 0 Did Not Occur FIM Communication Comprehension - Auditory: 6 Comprehension - Visual: 6 Comprehension Score Evidence: 6 Uses Glasses, 6 Needs Extra Time Expression - Vocal: 6 Expression - Non Vocal: 6 Expression Score Evidence: 6 Extra Time Assessment: Patient more distractible with presence of friends in the room, requiring v/c x 2 to maintain precautions. was not able to be present and patient would greatly benefi t from family training for safety and follow through of C brace spinal precautions at home. Occupational Therapy Anticipated Discharge Needs are: home with home health Have the anticipated discharge needs changed? no Post discharge occupational therapy recommendation: TBD Plan for next treatment: 1P. KB. Caregiver training, ADLs, c-bracing mgmt/education Electronically signed by: CHEMO Chairez, 2016 15:45 lan of Care - Christina Christina, PT - 2016 3:40 PM PDTProblem: Patient Care Overview (Adult) Goal: Care Team Goals & Evaluation PROBLEM-RELATED GOALS: 1. Pt will tolerate general diet/dysphagia advance diet and thin liquids with no s/s of air way compromise by 07/14/16. 2. Pt will be modified independent with ambulation in hallway by 07/14/16. 3. Pt will report a pain level of 1/10 on a pain scale by 07/14/16. 4. Pt will have no s/s of infection by 07/14/16. 5. Mr. Aleman will meet 75% of predicted incentive spirometer goal of 2100 by 07/14/16. 6. Pt will eat >75% of meals by 07/14/16 STRATEGY TO ACHIEVE GOALS: 1. Pt will participate in ST -Pt will participate in all PT activities. -assess pain level throiugh the day and provide PRN pain medications. Encouraged frequent p osition changes for comfort. - monitor VS and lab results and notify MD as need it. Instruct patient in the use of Incentive Spirometry and/or deep breath and cough. Nursing a nd Respiratory to work together to have patient use every hour while awake. Respiratory to m onitor progress 4 times daily until 75% goal met then turn over to nursing. Will f/u to adjust food and fluids to pt preferences/tolerances and provide nutritional sup plements RESTRAINT-RELATED GOALS: STRATEGIES TO ACHIEVE RESTRAINT GOALS: Physical Therapy Daily Treatment Note Patient Information Patient Name: Kevin Aleman Sr. Date of : 1945 Age: 71 y.o. Precautions/Limitations: falls, spinal, orthotic/bracing, corrective lenses, swallowing History of Presenting Problem: back and right hip pain. Pt is now s/p L2-4 LAIF; L4-L5 TLI F; L2-L5 posterior instrumentation. PT Diagnosis: Impaired mobility Start Time: 1320 Stop time: 1350 Time Calculation: 30 minutes Missed Treatment Time: (3 min while RN was in to give meds) minutes Total Treatment Time: 30 minutes TimedTreatment Code Minutes: 30 minutes Subjective: Pt presents in bed; says that his back is stiff and sore. Reports that his back felt better when he got up and walked earlier but now reports that pain levels stayed deisy. the same with mobility training this p.m. Pt states 4/5 post op precautions/body mechanics r ecommendations when asked. Says it is his birthday and he is sad because his tried to d rive here to be with him but the roads were too foggy, so she had to turn around and go back home. Objective: Treatment Provided: Pt seen for review of post op precautions and functional mobility and g ait training in room, bathroom, and hallway (see below) in order to work towards goal of inc reasing safety and independence in order to progress toward prior level of function. Education: Cues provided for improved safety and technique as needed during functional mobi lity training and ex. Focusing especially on improved clearance and more symmetrical step le ngth and foot placement. Patient Status/Goals: Reflects last filed data of patient status; may be from multiple contributors. Gait v. cuing for inc. toe clearance and heel strike. wearing AFO. Level of [place] : supervision required, verbal cues required Assistive Device: 2 wheeled walker (FWW) Distance (feet): 140 Gait Pattern Analysis: 3-point gait Gait Deviations: hiram decreased, step length decreased, [id number] clearance decreased , weight-shifting ability decreased, stride length decreased Impairments: pain, decreased flexibility, muscle tone abnormal, strength decreased, impaire d balance, motor control impaired Transfers Pt continues to have higher pain levels, so continued use of FWW vs. 4WW Bed-Chair, Level of [place]: supervision required Chair-Bed, Level of [place]: supervision required [id number], Assistive Device: 2 wheeled walker (FWW) Sit-Stand, Level of [place]: supervision required Stand-Sit, Level of [place]: supervision required [id number], Assistive Device: 2 wheeled walker (FWW) Safety Issues: step length decreased Impairments: ROM decreased, impaired balance, pain Bed Mobility blocked practice for Assistive Device: bed rails Roll Left, Level of [place]: modified independence Supine to Sit, Level of [place]: modified independence Sit to Supine, Level of [place]: modified independence Safety Issues: decreased use of arms for pushing/pulling, decreased use of legs for bridgin g/pushing Impairments: pain, decreased flexibility, strength decreased, muscle tone abnormal STG GOALS Bed Mobility Goal, Activity Type: roll left/roll right, scoot/bridge, supine to sit/sit to supine [place] Level: modified independence Assistive Device: none Time to Achieve: 2 - 3 days Goal Status: met Transfer Training Goal, Activity Type: bed to chair /chair to bed, sit to stand/stand to si t [place] Level: modified independence Assistive Device: 2 wheeled walker (FWW) Time to Achieve: 2 - 3 days Goal Status: progressing toward goal Gait Training Goal, [place] Level: contact guard assist Assistive Device: 4 wheeled walker (4WW), 2 wheeled walker (FWW) Distance: 150 feet Time to Achieve: 2 - 3 days Goal Status: revised Stairs Goal, [place] Level: contact guard assist Assistive Device: (Handrails) Number of Stairs: 12 Time to Achieve: 2 - 3 days Goal Status: progressing toward goal LTG GOALS Bed Mobility Goal, Activity Type: roll left/roll right, scoot/bridge, supine to sit/sit to supine [place] Level: independent Assistive Device: none Time to Achieve: 1 wk Goal Status: progressing toward goal Transfer Training Goal, Activity Type: bed to chair /chair to bed, sit to stand/stand to si t [place] Level: modified independence Assistive Device: 2 wheeled walker (FWW) Time to Achieve: 1 wk Goal Status: progressing toward goal Gait Training Goal, [place] Level: modified independence Assistive Device: 2 wheeled walker (FWW) Distance: 300 feet Time to Achieve: 1 wk Goal Status: progressing toward goal Number of Stairs: 16 Time to Achieve: 1 wk Goal Status: progressing toward goal Assessment: Pt tired and with fairly high pain levels again today, so continuing to train w ith FWW vs. 4WW for today. Tolerated treatment with no increased sx but no pain relief eithe r. Physical Therapy Anticipated Discharge Needs are: home with home health Have the anticipated discharge needs changed? no Post discharge physical therapy recommendation: Home PT Plan for next treatment: IRF;1-2P; KH; progressive gait, balance, strengthening, and functi onal mobility training; re-start training with 4WW when pain is better controlled. Electronically signed by: Christina Salvador, PT, 2016 15:34 lan of Care - Hallie Linares RN - 2016 1:48 PM PDTProblem: Patient Care Overview (Adult) Goal: Care Team Goals & Evaluation PROBLEM-RELATED GOALS: 1. Pt will tolerate general diet/dysphagia advance diet and thin liquids with no s/s of air way compromise by 07/14/16. 2. Pt will be modified independent with ambulation in hallway by 07/14/16. 3. Pt will report a pain level of 1/10 on a pain scale by 07/14/16. 4. Pt will have no s/s of infection by 07/14/16. 5. Mr. Aleman will meet 75% of predicted incentive spirometer goal of 2100 by 07/14/16. 6. Pt will eat >75% of meals by 07/14/16 STRATEGY TO ACHIEVE GOALS: 1. Pt will participate in ST -Pt will participate in all PT activities. -assess pain level throiugh the day and provide PRN pain medications. Encouraged frequent p osition changes for comfort. - monitor VS and lab results and notify MD as need it. Instruct patient in the use of Incentive Spirometry and/or deep breath and cough. Nursing a nd Respiratory to work together to have patient use every hour while awake. Respiratory to m onitor progress 4 times daily until 75% goal met then turn over to nursing. Will f/u to adjust food and fluids to pt preferences/tolerances and provide nutritional sup plements RESTRAINT-RELATED GOALS: STRATEGIES TO ACHIEVE RESTRAINT GOALS: Outcome: Improving Goal Evaluation: 1. Tolerating general dysphagia advance diet, no coughing noted while swallowing. Taking r x whole w healthshake and/or water. Refused applesauce this morning. 2. Transferring and ambulating w fww+sba, requires cuing w precautions 3. C/o pain to lower back and muscle spasms to legs intermittent, taking scheduled baclofen , scheduled zanaflex at 1800 and prn oxycodone, has required oxycodone today 4. Lower lumbar and left flank incisions well approximated w steri-strips intact, ecchymoti c left flank, no /sx infection 5. Performing deep breathing exercises w encouragement 6. Eating 50-100% most meals. No c/o nausea, drinking more fluids than previous days. lan of [facility] - Jacquelyn Prado RN - 07/13/2016 8:23 PM PDTProblem: Patient Care Overview (Adult) Goal: Care Team Goals & Evaluation PROBLEM-RELATED GOALS: 1. Pt will tolerate general diet/dysphagia advance diet and thin liquids with no s/s of air way compromise by 07/14/16. 2. Pt will be modified independent with ambulation in hallway by 07/14/16. 3. Pt will report a pain level of 1/10 on a pain scale by 07/14/16. 4. Pt will have no s/s of infection by 07/14/16. 5. Mr. Aleman will meet 75% of predicted incentive spirometer goal of 2100 by 07/14/16. 6. Pt will eat >75% of meals by 07/14/16 STRATEGY TO ACHIEVE GOALS: 1. Pt will participate in ST -Pt will participate in all PT activities. -assess pain level throiugh the day and provide PRN pain medications. Encouraged frequent p osition changes for comfort. - monitor VS and lab results and notify MD as need it. Instruct patient in the use of Incentive Spirometry and/or deep breath and cough. Nursing a nd Respiratory to work together to have patient use every hour while awake. Respiratory to m onitor progress 4 times daily until 75% goal met then turn over to nursing. Will f/u to adjust food and fluids to pt preferences/tolerances and provide nutritional sup plements RESTRAINT-RELATED GOALS: STRATEGIES TO ACHIEVE RESTRAINT GOALS: Outcome: Improving Goal Evaluation: 1. Pt is tolerating a general diet with dysphagia advance texture. Taking his medications i n applesauce or pudding. 2. Pt is SBA with ambulation and FWW 3. Pt's pain has been tolerable with 1 oxycodone every 4-5 hours. States his pain has been around 4-5/10 4. Pt has had no s/s of infection 5. Pt has been using his IS ind. 6. Pt's appetite has been poor. States he is just not that hungry. lan of Care - Majo Medina COTA - 07/13/2016 5:50 PM PDTProblem: Patient Care Overview (Adult) Goal: Care Team Goals & Evaluation PROBLEM-RELATED GOALS: 1. Pt will tolerate general diet/dysphagia advance diet and thin liquids with no s/s of air way compromise by 07/14/16. 2. Pt will be modified independent with ambulation in hallway by 07/14/16. 3. Pt will report a pain level of 1/10 on a pain scale by 07/14/16. 4. Pt will have no s/s of infection by 07/14/16. 5. Mr. Moffit will meet 75% of predicted incentive spirometer goal of 2100 by 07/14/16. 6. Pt will eat >75% of meals by 07/14/16 STRATEGY TO ACHIEVE GOALS: 1. Pt will participate in ST -Pt will participate in all PT activities. -assess pain level throiugh the day and provide PRN pain medications. Encouraged frequent p osition changes for comfort. - monitor VS and lab results and notify MD as need it. Instruct patient in the use of Incentive Spirometry and/or deep breath and cough. Nursing a nd Respiratory to work together to have patient use every hour while awake. Respiratory to m onitor progress 4 times daily until 75% goal met then turn over to nursing. Will f/u to adjust food and fluids to pt preferences/tolerances and provide nutritional sup plements RESTRAINT-RELATED GOALS: STRATEGIES TO ACHIEVE RESTRAINT GOALS: Occupational Therapy Daily Treatment Note Patient Information Patient Name: Kevin Aleman . Date of : 1945 Age: 70 y.o. Precautions/Limitations: falls, spinal, orthotic/bracing, corrective lenses, swallowing Start Time: 1259 Stop time: 1359 Time Calculation: 60 minutes Missed Treatment Time: 10 minutes Total Treatment Time: 60 minutes TimedTreatment Code Minutes: 60 minutes Frequency: daily Subjective: Patient reported that he would like a shower. Objective: Patient in bed, requesting a shower. Patient's had not arrived, he called her and she stated that it was too foggy to drive over. Will plan to perform caregiver training tomorrow . Patient ambulated to shower room and transfered to shower seat with verbal cues for safety . Patient doffed LB clothes, then removed brace and shirt before showering. Patient bathed u sing long-handled sponge and 2 verbal cues for twisting. Patient dried UB, donned shirt afte r set up and then brace. Patient then donned pants with transmitter engineer in charge. MCLAIN assisted patient with MARINA hose, brace, L sock and shoes due to time constraints. Patient ambulated back to room an d sat in chair with SBA and then combed hair after set up. Call light in reach, chair alarm set. Education: C-brace management, spinal precautions, AE Treatment Provided: ADL training Patient Status/Goals Reflects last filed data of patient status; may be from multiple contributors. ADLs Bathing, Level of [place]: verbal cues required, set up required, supervision required Assistive Device: long-handled sponge Bathing Assess/Train, Position: sitting Bathing Assess/Train, Impairments: ROM decreased, strength decreased, pain seated UB Dressing, Level of [place]: set up required, supervision required Assistive Device: none UB Dressing Assess/Train, Position: sitting . LB, Level of [place]: minimum assist (75% patient effort), set up required, verbal cue s required Assistive Device: transmitter engineer in charge, sock-aid, long-handled shoe horn LB Dressing Assess/Train, Position: sitting LB Dressing Assess/Train, Impairments: decreased flexibility, ROM decreased, strength decre ased, pain Grooming, Level of [place]: set up required Assistive Device: electric razor Grooming Assess/Train, Position: standing Grooming Assess/Train, Impairments: strength decreased, pain Transfers Bed-Chair, Level of [place]: supervision required Chair-Bed, Level of [place]: supervision required [id number], Assistive Device: 2 wheeled walker (FWW) Sit-Stand, Level of [place]: supervision required Stand-Sit, Level of [place]: supervision required [id number], Assistive Device: 2 wheeled walker (FWW) Walk-In Shower, Level of [place]: supervision required, verbal cues required Walk-in shower, Assistive Device: 2 wheeled walker (FWW), grab bars, shower chair Safety Issues: step length decreased Impairments: decreased flexibility, ROM decreased, impaired balance, pain STG Goals Transfer Training Goal, Activity Type: toilet [place] Level: minimum assist (75% patient effort) Assistive Device: 2 wheeled walker (FWW) Time to Achieve: 5 - 7 days Goal Status: continued, progressing toward goal Grooming Goal, [place] Level: set up required, verbal cues required Adaptive Equipment: none Position: sitting in chair Time to Achieve: 2 - 3 days Goal Status: continued, progressing toward goal Bathing Goal, [place] Level: minimum assist (75% patient effort) Adaptive Equpiment: grab bars, scrub brush, shower chair Time to Achieve: 5 - 7 days Goal Status: continued, progressing toward goal Toileting Goal, [place] Level: minimum assist (75% patient effort), verbal cues requir ed Assistive Device: toilet paper aid Time to Achieve: 5 - 7 days Goal Status: continued, progressing toward goal UB Dressing Goal, [place] Level: minimum assist (75% patient effort), verbal cues requ ired Adaptive Equipment: none Time to Achieve: 5 - 7 days Goal Status: continued, progressing toward goal LB Dressing Goal, [place] Level: moderate assist (50% patient effort) Adaptive Equipment: transmitter engineer in charge, dressing stick, shoe horn, long handled Time to Achieve: 5 - 7 days Goal Status: continued, progressing toward goal IADL Goal: LIght snack/meal prep w/ supervision. Time to Achieve: 5 - 7 days Goal Status: continued LTG Goals Transfer Training Goal, Activity Type: walk-in shower, toilet [place] Level: contact guard assist Assistive Device: 2 wheeled walker (FWW), grab bars Time to Achieve: 5 - 7 days Goal Status: continued, progressing toward goal Grooming Goal, [place] Level: set up required Adaptive Equipment: none Position: sitting in chair Time to Achieve: 5 - 7 days Goal Status: continued, progressing toward goal Bathing Goal, [place] Level: set up required, verbal cues required Adaptive Equpiment: grab bars, scrub brush Time to Achieve: 5 - 7 days Goal Status: continued, progressing toward goal Toileting Goal, [place] Level: supervision required Assistive Device: none Time to Achieve: 5 - 7 days Goal Status: continued, progressing toward goal UB Dressing Goal, [place] Level: set up required Adaptive Equipment: none Time to Achieve: 5 - 7 days Goal Status: continued, progressing toward goal LB Dressing Goal, [place] Level: verbal cues required, set up required Adaptive Equipment: transmitter engineer in charge, laces, elastic, shoe horn, long handled, sock-aid Time to Achieve: 5 - 7 days Goal Status: continued, progressing toward goal IADL Goal: Pt will prepare light snack w/ mod I. Time to Achieve: 1 wk Goal Status: continued FIM: FIM Transfers Bed/Chair/Wheelchair: 5 Bed/Chair/WC Score Evidence: 6 Extra Time Toilet: 5 Toilet Transfer Evidence: 5 Safety Supervision, 6 Grab Bar [place], 6 Raised Toilet S eat [place], 6 Extra Time Tub / Shower: 5 Tub/Shower Score Evidence: 5 Verbal Cues, 5 Safety Supervision FIM Self Care Eatin Eating Score Evidence: 6 Extra Time Groomin Grooming Score Evidence: 5 Safety Supervison Bathin Bathing Score Evidence: 5 Safety Supervison, 5 Verbal Cues Dressing - Upper Body: 5 Dressing Upper Score Evidence: 5 Needs Supervision Dressing - Lower Body: 4 Dressing Lower Score Evidence: 4 Steadying, 5 Apply MAR[place] Toiletin Toileting Score Evidence: 5 Safety Supervision, 6 Grab Bar, 6 Extra Time FIM Social/Cognition Social Interaction: 6 Social Interaction Score Evidence: 6 Extra Time Problem Solvin Problem Solving Score Evidence: 5 Daily Prbs 91-99%, 6 Extra Time Memory: 6 Memory Score Evidence: 6 Extra Time FIM Locomotion Walk: 5 Distance Walked (feet): 160 feet Walk Score Evidence: 5 Supervise/150 ft+, 5 Verbal Cues/150 ft+ FIM Modifier DC Locomotion: walk FIM Modifier Walk Distance: 3 150 feet Stairs: 0 Stairs Score Evidence: 0 Did Not Occur FIM Communication Comprehension - Auditory: 6 Comprehension - Visual: 6 Comprehension Score Evidence: 6 Uses Glasses Expression - Vocal: 6 Expression - Non Vocal: 6 Expression Score Evidence: 6 Extra Time Assessment: not present for training as was agreed upon due to the weather. Patient wo uld greatly benefit from caregiver training due to safety following C-brace precautions. Occupational Therapy Anticipated Discharge Needs are: home with home health Have the anticipated discharge needs changed? no Post discharge occupational therapy recommendation: TBD Plan for next treatment: 1P. KB. Caregiver training, ADLs, c-bracing mgmt/education Electronically signed by: CHEMO Chairez, 07/13/2016 17:47 lan of Care - Christina Christina, PT - 07/13/2016 3:49 PM PDTProblem: Patient Care Overview (Adult) Goal: Care Team Goals & Evaluation PROBLEM-RELATED GOALS: 1. Pt will tolerate general diet/dysphagia advance diet and thin liquids with no s/s of air way compromise by 07/14/16. 2. Pt will be modified independent with ambulation in hallway by 07/14/16. 3. Pt will report a pain level of 1/10 on a pain scale by 07/14/16. 4. Pt will have no s/s of infection by 07/14/16. 5. Mr. Aleman will meet 75% of predicted incentive spirometer goal of 2100 by 07/14/16. 6. Pt will eat >75% of meals by 07/14/16 STRATEGY TO ACHIEVE GOALS: 1. Pt will participate in ST -Pt will participate in all PT activities. -assess pain level throiugh the day and provide PRN pain medications. Encouraged frequent p osition changes for comfort. - monitor VS and lab results and notify MD as need it. Instruct patient in the use of Incentive Spirometry and/or deep breath and cough. Nursing a nd Respiratory to work together to have patient use every hour while awake. Respiratory to m onitor progress 4 times daily until 75% goal met then turn over to nursing. Will f/u to adjust food and fluids to pt preferences/tolerances and provide nutritional sup plements RESTRAINT-RELATED GOALS: STRATEGIES TO ACHIEVE RESTRAINT GOALS: Outcome: Improving Physical Therapy Daily Treatment Note Patient Information Patient Name: Kevin Aleman . Date of : 1945 Age: 70 y.o. Precautions/Limitations: falls, spinal, orthotic/bracing, corrective lenses, swallowing History of Presenting Problem: back and right hip pain. Pt is now s/p L2-4 LAIF; L4-L5 TLI F; L2-L5 posterior instrumentation. PT Diagnosis: Impaired mobility Start Time: 1502 Stop time: 1535 Time Calculation: 33 minutes Missed Treatment Time: (3 min while RN was in to give meds) minutes Total Treatment Time: 33 minutes TimedTreatment Code Minutes: 33 minutes Subjective: Pt presents in bed; says his B low back, groin, and hips are hurting (5/10) but he is agreeable to PT because he wants to get stronger. Objective: Treatment Provided: Pt assisted to don/doff AFO and shoes and adjust LSO. Pt then seen for ex and functional mobility and gait training (see below) in order to work towards goal of in creasing safety and independence in order to progress toward prior level of function. Education: Cues provided for improved safety and technique as needed during functional mobi lity training and ex. Patient Status/Goals: Reflects last filed data of patient status; may be from multiple contributors. Gait v. cuing for inc. toe clearance and heel strike. wearing AFO. Level of [place] : supervision required, verbal cues required Assistive Device: 2 wheeled walker (FWW) Distance (feet): 160 Gait Pattern Analysis: 3-point gait Gait Deviations: hiram decreased, step length decreased, [id number] clearance decreased , weight-shifting ability decreased, stride length decreased Impairments: pain, decreased flexibility, muscle tone abnormal, strength decreased, impaire d balance, motor control impaired Stairs pt was able to complete stair training with juan diego gregorying for sequencing and demo. Number of Stairs: 4 Handrail Location: both sides Level of [place]: supervision required, verbal cues required Assistive Device: none Technique Used: step over step (ascending), step to step (ascending) Safety Issues: balance decreased during turns Impairments: muscle tone abnormal, pain, decreased flexibility, ROM decreased, impaired bal ance, motor control impaired Transfers Pt using FWW again this p.m. due to higher pain levels Bed-Chair, Level of [place]: supervision required Chair-Bed, Level of [place]: supervision required [id number], Assistive Device: 2 wheeled walker (FWW) Sit-Stand, Level of [place]: supervision required, verbal cues required Stand-Sit, Level of [place]: supervision required, verbal cues required [id number], Assistive Device: 2 wheeled walker (FWW) Safety Issues: step length decreased Impairments: decreased flexibility, ROM decreased, impaired balance, pain Bed Mobility blocked practice for Assistive Device: bed rails Roll Left, Level of [place]: modified independence Supine to Sit, Level of [place]: modified independence Sit to Supine, Level of [place]: modified independence Safety Issues: decreased use of arms for pushing/pulling, decreased use of legs for bridgin g/pushing Impairments: pain, decreased flexibility, strength decreased, muscle tone abnormal Therapeutic Exercise Standing exercises: sidestepping, stepping forward/backward (sit <> stand from raised bed h eight x 10; marching forwards; stepping backwards and then sidestepping 6ft each way x 3 lap s for each ex.) STG GOALS Bed Mobility Goal, Activity Type: roll left/roll right, scoot/bridge, supine to sit/sit to supine [place] Level: modified independence Assistive Device: none Time to Achieve: 2 - 3 days Goal Status: met Transfer Training Goal, Activity Type: bed to chair /chair to bed, sit to stand/stand to si t [place] Level: modified independence Assistive Device: 2 wheeled walker (FWW) Time to Achieve: 2 - 3 days Goal Status: progressing toward goal Gait Training Goal, [place] Level: contact guard assist Assistive Device: 4 wheeled walker (4WW), 2 wheeled walker (FWW) Distance: 150 feet Time to Achieve: 2 - 3 days Goal Status: revised Stairs Goal, [place] Level: contact guard assist Assistive Device: (Handrails) Number of Stairs: 12 Time to Achieve: 2 - 3 days Goal Status: progressing toward goal LTG GOALS Bed Mobility Goal, Activity Type: roll left/roll right, scoot/bridge, supine to sit/sit to supine [place] Level: independent Assistive Device: none Time to Achieve: 1 wk Goal Status: progressing toward goal Transfer Training Goal, Activity Type: bed to chair /chair to bed, sit to stand/stand to si t [place] Level: modified independence Assistive Device: 2 wheeled walker (FWW) Time to Achieve: 1 wk Goal Status: progressing toward goal Gait Training Goal, [place] Level: modified independence Assistive Device: 2 wheeled walker (FWW) Distance: 300 feet Time to Achieve: 1 wk Goal Status: progressing toward goal Number of Stairs: 16 Time to Achieve: 1 wk Goal Status: progressing toward goal FIM: FIM Transfers Bed/Chair/Wheelchair: 5 Bed/Chair/WC Score Evidence: 6 Extra Time FIM Locomotion Walk: 5 Distance Walked (feet): 160 feet Walk Score Evidence: 5 Supervise/150 ft+, 5 Verbal Cues/150 ft+ FIM Modifier DC Locomotion: walk FIM Modifier Walk Distance: 3 150 feet Stairs: 0 Stairs Score Evidence: 0 Did Not Occur Assessment: Pt with improving gait pattern and clearance on R but then gait pattern deterio rates again as he fatigues. Did well with ex and reports minimal to no increase in pain with mobility and ex training this p.m. Physical Therapy Anticipated Discharge Needs are: home with home health Have the anticipated discharge needs changed? no Post discharge physical therapy recommendation: Home PT Plan for next treatment: IRF;1-2P; KH; progressive gait, balance, strengthening, and functi onal mobility training Electronically signed by: Christina Salvador, PT, 07/13/2016 15:45 lan of Care - Christina walker, PT - 07/13/2016 2:36 PM PDTProblem: Patient Care Overview (Adult) Goal: Care Team Goals & Evaluation PROBLEM-RELATED GOALS: 1. Pt will tolerate general diet/dysphagia advance diet and thin liquids with no s/s of air way compromise by 07/14/16. 2. Pt will be modified independent with ambulation in hallway by 07/14/16. 3. Pt will report a pain level of 1/10 on a pain scale by 07/14/16. 4. Pt will have no s/s of infection by 07/14/16. 5. Mr. Aleman will meet 75% of predicted incentive spirometer goal of 2100 by 07/14/16. 6. Pt will eat >75% of meals by 07/14/16 STRATEGY TO ACHIEVE GOALS: 1. Pt will participate in ST -Pt will participate in all PT activities. -assess pain level throiugh the day and provide PRN pain medications. Encouraged frequent p osition changes for comfort. - monitor VS and lab results and notify MD as need it. Instruct patient in the use of Incentive Spirometry and/or deep breath and cough. Nursing a nd Respiratory to work together to have patient use every hour while awake. Respiratory to m onitor progress 4 times daily until 75% goal met then turn over to nursing. Will f/u to adjust food and fluids to pt preferences/tolerances and provide nutritional sup plements RESTRAINT-RELATED GOALS: STRATEGIES TO ACHIEVE RESTRAINT GOALS: Physical Therapy Daily Treatment Note Patient Information Patient Name: Kevin Aleman Sr. Date of : 1945 Age: 70 y.o. Precautions/Limitations: falls, spinal, orthotic/bracing, corrective lenses, swallowing History of Presenting Problem: back and right hip pain. Pt is now s/p L2-4 LAIF; L4-L5 TLI F; L2-L5 posterior instrumentation. PT Diagnosis: Impaired mobility Start Time: 1025 Stop time: 1118 Time Calculation: 53 minutes Missed Treatment Time: (3 min while RN was in to give meds) minutes Total Treatment Time: 53 minutes TimedTreatment Code Minutes: 50 minutes Subjective: Pt presents sitting up in bedside chair; RN bringing pain meds close to beginni ng of session. Reports that his R AFO seems to be working a little better since being adjust ed yesterday. Reports low back and B groin pain at rest that radiates to B hips with walking and ex. Pt says that he tried the cold pack for the first time yesterday and thinks that it may have helped, so says wants to try it again today (but then once in bed, pt just wants t o rest and decided to go without cold pack). Objective: Treatment Provided: Reviewed post op precautions with pt. Pt seen for ex and functional mob ility training (see below) in order to work towards goal of increasing safety and independen ce in order to progress toward prior level of function. Education: Cues provided for improved safety and technique as needed during functional mobi lity training and ex. Patient Status/Goals: Reflects last filed data of patient status; may be from multiple contributors. Gait v. cuing for inc. toe clearance and heel strike. wearing AFO. Level of [place] : supervision required, verbal cues required Assistive Device: 4 wheeled walker (4WW) Distance (feet): 100 ft x 2 Gait Pattern Analysis: 3-point gait Gait Deviations: hiram decreased, step length decreased, cej-um-sborx clearance decreased , weight-shifting ability decreased, stride length decreased Impairments: pain, decreased flexibility, muscle tone abnormal, strength decreased, impaire d balance, motor control impaired Transfers pt requires v. cueing to lock brakes x3 Bed-Chair, Level of [place]: supervision required Chair-Bed, Level of [place]: supervision required [id number], Assistive Device: 2 wheeled walker (FWW) Sit-Stand, Level of [place]: supervision required, verbal cues required Stand-Sit, Level of [place]: supervision required, verbal cues required Ejw-[id number], Assistive Device: 2 wheeled walker (FWW) Safety Issues: step length decreased Impairments: decreased flexibility, ROM decreased, impaired balance, pain Bed Mobility blocked practice for Assistive Device: bed rails Roll Left, Level of [place]: not tested Supine to Sit, Level of [place]: not tested Sit to Supine, Level of [place]: modified independence Safety Issues: decreased use of arms for pushing/pulling, decreased use of legs for bridgin g/pushing Impairments: pain, decreased flexibility, strength decreased, muscle tone abnormal Balance Sitting Balance: Static: good balance Sitting Balance: Dynamic: fair balance Standing Balance: Static: fair balance Standing Balance: Dynamic: fair balance Therapeutic Exercise Standing Exercises (for improved strength and to facilitate improved clearance during swing phase of gait): toe taps on 4 inch step x 10, standing knee ext with hip ext using yellow t heraband for resistance x 10-15. Balance exercises: catch/throw and reaching activities, progressing to standing on blue foa m pad. Recumbent stepper x 10 min to help facilitate strength and endurance and reciprocal gait pa ttern. Functional Exercises: sit to stand with cues for technique and safety x 5 STG GOALS Bed Mobility Goal, Activity Type: roll left/roll right, scoot/bridge, supine to sit/sit to supine [place] Level: modified independence Assistive Device: none Time to Achieve: 2 - 3 days Goal Status: met Transfer Training Goal, Activity Type: bed to chair /chair to bed, sit to stand/stand to si t [place] Level: modified independence Assistive Device: 2 wheeled walker (FWW) Time to Achieve: 2 - 3 days Goal Status: progressing toward goal Gait Training Goal, [place] Level: contact guard assist Assistive Device: 4 wheeled walker (4WW), 2 wheeled walker (FWW) Distance: 150 feet Time to Achieve: 2 - 3 days Goal Status: revised Stairs Goal, [place] Level: contact guard assist Assistive Device: (Handrails) Number of Stairs: 12 Time to Achieve: 2 - 3 days Goal Status: continued; not addressed this a.m. LTG GOALS Bed Mobility Goal, Activity Type: roll left/roll right, scoot/bridge, supine to sit/sit to supine [place] Level: independent Assistive Device: none Time to Achieve: 1 wk Goal Status: progressing toward goal Transfer Training Goal, Activity Type: bed to chair /chair to bed, sit to stand/stand to si t [place] Level: modified independence Assistive Device: 2 wheeled walker (FWW) Time to Achieve: 1 wk Goal Status: progressing toward goal Gait Training Goal, [place] Level: modified independence Assistive Device: 2 wheeled walker (FWW) Distance: 300 feet Time to Achieve: 1 wk Goal Status: progressing toward goal Number of Stairs: 16 Time to Achieve: 1 wk Goal Status: progressing toward goal Assessment: Pt tolerated session well with no significant adverse effects but did report m ild increase in pain with mobility and ex. Mobilizing fairly well but still requires cues fo r improved clearance and weight shift onto R LE. Pt continues to fatigue easily and requires seated rests between each activity and ex. Physical Therapy Anticipated Discharge Needs are: home with home health Have the anticipated discharge needs changed? no Post discharge physical therapy recommendation: Home PT. Plan for next treatment: IRF;1-2P; KH; progressive gait, balance, strengthening, and functi onal mobility training Electronically signed by: Christina Salvador, PT, 07/13/2016 14:25 lan of Care - B Majo can, MCLAIN - 07/13/2016 11:08 AM PDTProblem: Patient Care Overview (Adult) Goal: Care Team Goals & Evaluation PROBLEM-RELATED GOALS: 1. Pt will tolerate general diet/dysphagia advance diet and thin liquids with no s/s of air way compromise by 07/14/16. 2. Pt will be modified independent with ambulation in hallway by 07/14/16. 3. Pt will report a pain level of 1/10 on a pain scale by 07/14/16. 4. Pt will have no s/s of infection by 07/14/16. 5. Mr. Aleman will meet 75% of predicted incentive spirometer goal of 2100 by 07/14/16. 6. Pt will eat >75% of meals by 07/14/16 STRATEGY TO ACHIEVE GOALS: 1. Pt will participate in ST -Pt will participate in all PT activities. -assess pain level throiugh the day and provide PRN pain medications. Encouraged frequent p osition changes for comfort. - monitor VS and lab results and notify MD as need it. Instruct patient in the use of Incentive Spirometry and/or deep breath and cough. Nursing a nd Respiratory to work together to have patient use every hour while awake. Respiratory to m onitor progress 4 times daily until 75% goal met then turn over to nursing. Will f/u to adjust food and fluids to pt preferences/tolerances and provide nutritional sup plements RESTRAINT-RELATED GOALS: STRATEGIES TO ACHIEVE RESTRAINT GOALS: Occupational Therapy Daily Treatment Note Patient Information Patient Name: Kevin Aleman Sr. Date of : 1945 Age: 70 y.o. Precautions/Limitations: falls, spinal, orthotic/bracing, corrective lenses, swallowing Start Time: 0900 Stop time: 1000 Time Calculation: 60 minutes Missed Treatment Time: 10 minutes Total Treatment Time: 60 minutes TimedTreatment Code Minutes: 60 minutes Frequency: daily Subjective: Patient's was not present for training yet this morning. Patient was norma rned about her driving from [employer] in the fog. Patient stated that she would be available this afternoon at 1:00. Objective: Patient in bed, supine, seen for ADL training. Patient declined shower, but agreeable to am bulate in to BR for grooming at the sink. SBA for transfers and mobility in room with FWW, v /c for log roll OOB. Patient stood while shaving, washing hands and face, and combing hair. Patient then requesting to use urinal, verbal cues needed to not twist away from FWW. Patie nt again washed hands at sink, then ambulated back to EOB to don pants. MCLAIN applied MARINA hos e and assisted with brace/R shoe. Patient donned L sock and shoe with verbal cues for sock a id and cues for using transmitter engineer in charge and long-handled shoe horn to apply shoe. Patient declined to change shirt until this afternoon when his will be present for training. Patient ambula marina to chair, call light in reach. Education: Spinal precautions, AE Treatment Provided: ADL training with spinal precautions Patient Status/Goals Reflects last filed data of patient status; may be from multiple contributors. ADLs LB, Level of [place]: minimum assist (75% patient effort), set up required, verbal cue s required Assistive Device: transmitter engineer in charge, long-handled shoe horn, sock-aid LB Dressing Assess/Train, Position: sitting LB Dressing Assess/Train, Impairments: decreased flexibility, ROM decreased, strength decre ased, pain Toileting, Level of [place]: verbal cues required, supervision required Assistive Device: urinal Toileting Assess/Train, Position: standing Toileting Assess/Train, Impairments: decreased flexibility, ROM decreased, strength decreas ed, pain Grooming, Level of [place]: set up required, supervision required Assistive Device: electric razor Grooming Assess/Train, Position: standing Grooming Assess/Train, Impairments: strength decreased, pain Bed Mobility Supine to Sit, Level of [place]: supervision required Sit to Supine, Level of [place]: supervision required Safety Issues: decreased use of legs for bridging/pushing Impairments: muscle tone abnormal, decreased flexibility, strength decreased, impaired rachna nce, coordination impaired, motor control impaired, pain Transfers Bed-Chair, Level of [place]: contact guard assist Chair-Bed, Level of [place]: contact guard assist, verbal cues required [id number]-Fib, Assistive Device: 2 wheeled walker (FWW) Sit-Stand, Level of [place]: supervision required Stand-Sit, Level of [place]: supervision required Ebk-Mbunz-Iwr, Assistive Device: 2 wheeled walker (FWW) Safety Issues: balance decreased during turns Impairments: decreased flexibility, ROM decreased, strength decreased, impaired balance, mo tor control impaired, pain STG Goals Transfer Training Goal, Activity Type: toilet [place] Level: minimum assist (75% patient effort) Assistive Device: 2 wheeled walker (FWW) Time to Achieve: 5 - 7 days Goal Status: continued, progressing toward goal Grooming Goal, [place] Level: set up required, verbal cues required Adaptive Equipment: none Position: sitting in chair Time to Achieve: 2 - 3 days Goal Status: continued, progressing toward goal Bathing Goal, [place] Level: minimum assist (75% patient effort) Adaptive Equpiment: grab bars, scrub brush, shower chair Time to Achieve: 5 - 7 days Goal Status: continued Toileting Goal, [place] Level: minimum assist (75% patient effort), verbal cues requir ed Assistive Device: toilet paper aid Time to Achieve: 5 - 7 days Goal Status: continued, progressing toward goal UB Dressing Goal, [place] Level: minimum assist (75% patient effort), verbal cues requ ired Adaptive Equipment: none Time to Achieve: 5 - 7 days Goal Status: continued LB Dressing Goal, [place] Level: moderate assist (50% patient effort) Adaptive Equipment: transmitter engineer in charge, dressing stick, shoe horn, long handled Time to Achieve: 5 - 7 days Goal Status: continued, progressing toward goal IADL Goal: LIght snack/meal prep w/ supervision. Time to Achieve: 5 - 7 days Goal Status: continued LTG Goals Transfer Training Goal, Activity Type: walk-in shower, toilet [place] Level: contact guard assist Assistive Device: 2 wheeled walker (FWW), grab bars Time to Achieve: 5 - 7 days Goal Status: continued, progressing toward goal Grooming Goal, [place] Level: set up required Adaptive Equipment: none Position: sitting in chair Time to Achieve: 5 - 7 days Goal Status: continued, progressing toward goal Bathing Goal, [place] Level: set up required, verbal cues required Adaptive Equpiment: grab bars, scrub brush Time to Achieve: 5 - 7 days Goal Status: continued Toileting Goal, [place] Level: supervision required Assistive Device: none Time to Achieve: 5 - 7 days Goal Status: continued, progressing toward goal UB Dressing Goal, [place] Level: set up required Adaptive Equipment: none Time to Achieve: 5 - 7 days Goal Status: continued LB Dressing Goal, [place] Level: verbal cues required, set up required Adaptive Equipment: transmitter engineer in charge, laces, elastic, shoe horn, long handled, sock-aid Time to Achieve: 5 - 7 days Goal Status: continued, progressing toward goal IADL Goal: Pt will prepare light snack w/ mod I. Time to Achieve: 1 wk Goal Status: continued FIM: FIM Transfers Bed/Chair/Wheelchair: 5 Bed/Chair/WC Score Evidence: 5 Safety Supervision Toilet: 5 Toilet Transfer Evidence: 5 Safety Supervision, 6 Grab Bar [place], 6 Raised Toilet S eat [place], 6 Extra Time Tub / Shower: 5 Tub/Shower Score Evidence: 5 Verbal Cues, 5 Safety Supervision FIM Self Care Eatin Eating Score Evidence: 6 Extra Time Groomin Grooming Score Evidence: 5 Safety Supervison Bathin Bathing Score Evidence: 5 Safety Supervison, 5 Verbal Cues Dressing - Upper Body: 5 Dressing Upper Score Evidence: 5 Get Clothing, 5 Verbal Cues, 5 Safety Supervision Dressing - Lower Body: 4 Dressing Lower Score Evidence: 4 Steadying Toiletin Toileting Score Evidence: 5 Safety Supervision, 6 Grab Bar, 6 Extra Time FIM Social/Cognition Social Interaction: 6 Social Interaction Score Evidence: 6 Extra Time Problem Solvin Problem Solving Score Evidence: 5 Daily Prbs 91-99%, 6 Extra Time Memory: 6 Memory Score Evidence: 6 Extra Time FIM Locomotion Walk: 5 Distance Walked (feet): 150 feet Walk Score Evidence: 2 Pt 25-49% Effort/50-149ft FIM Modifier DC Locomotion: walk FIM Modifier Walk Distance: 3 150 feet Stairs: 0 Stairs Score Evidence: 0 Did Not Occur FIM Communication Comprehension - Auditory: 6 Comprehension - Visual: 6 Comprehension Score Evidence: 6 Uses Glasses Expression - Vocal: 6 Expression - Non Vocal: 6 Expression Score Evidence: 6 Extra Time Assessment: Patient requires occasional cuing for safety while ambulating with FWW and duri ng transfers. Patient also required cuing while using AE to maintain precautions. Occupational Therapy Anticipated Discharge Needs are: home with home health Have the anticipated discharge needs changed? no Post discharge occupational therapy recommendation: TBD Plan for next treatment: 1P. KB. Caregiver training; U/LB dressing; C-bracing mgmt/educatio n, 4WW mgmt/mobility Electronically signed by: CHEMO Chairez, 07/13/2016 11:03 lan of Care - Viky Archibald RN - 07/13/2016 4:28 AM PDTProblem: Patient Care Overview (Adult) Goal: Care Team Goals & Evaluation PROBLEM-RELATED GOALS: 1. Pt will tolerate general diet/dysphagia advance diet and thin liquids with no s/s of air way compromise by 07/14/16. 2. Pt will be modified independent with ambulation in hallway by 07/14/16. 3. Pt will report a pain level of 1/10 on a pain scale by 07/14/16. 4. Pt will have no s/s of infection by 07/14/16. 5. Mr. Aleman will meet 75% of predicted incentive spirometer goal of 2100 by 07/14/16. 6. Pt will eat >75% of meals by 07/14/16 STRATEGY TO ACHIEVE GOALS: 1. Pt will participate in ST -Pt will participate in all PT activities. -assess pain level throiugh the day and provide PRN pain medications. Encouraged frequent p osition changes for comfort. - monitor VS and lab results and notify MD as need it. Instruct patient in the use of Incentive Spirometry and/or deep breath and cough. Nursing a nd Respiratory to work together to have patient use every hour while awake. Respiratory to m onitor progress 4 times daily until 75% goal met then turn over to nursing. Will f/u to adjust food and fluids to pt preferences/tolerances and provide nutritional sup plements RESTRAINT-RELATED GOALS: STRATEGIES TO ACHIEVE RESTRAINT GOALS: Outcome: Improving Goal Evaluation: Pt c/o pain in the lower back 4/10, relieved by Oxycodone 5mg. C-brace on at all times. Arms and legs 5/5, strong hand meat carrier and feet flexion. Right elbow wound flushed with NS, p atted dry with gauze, Foam dressing applied. Right heel dressing CDI. Powder applied to gr oin, cream applied to facial folds. Incisions on back open to air, healing well. Steri-str ips on left flank CDI. HRR, LSC, BTA, last BM 07/13. Pt c/o itchiness of the trunk, sweate r removed, and cotton undershirt placed on. Pt stated feeling very itchy without a rash, wh en he took Benadryl years ago. Dr. Berman informed, no new orders given, except to apply ski n moisturizer as needed. Pt was able to fall asleep after change of clothes. Ambulates to toilet with FWW and SBA, sleeping between care. lan of Care - Ga Candida Loredo RRT - 07/12/2016 6:31 PM PDTFormatting of this note might be differen t from the original. Problem: Patient Care Overview (Adult) Goal: Care Team Goals & Evaluation PROBLEM-RELATED GOALS: 1. Pt will tolerate general diet/dysphagia advance diet and thin liquids with no s/s of air way compromise by 07/14/16. 2. Pt will be modified independent with ambulation in hallway by 07/14/16. 3. Pt will report a pain level of 1/10 on a pain scale by 07/14/16. 4. Pt will have no s/s of infection by 07/14/16. 5. Mr. Aleman will meet 75% of predicted incentive spirometer goal of 2100 by 07/14/16. 6. Pt will eat >75% of meals by 07/14/16 STRATEGY TO ACHIEVE GOALS: 1. Pt will participate in ST -Pt will participate in all PT activities. -assess pain level throiugh the day and provide PRN pain medications. Encouraged frequent p osition changes for comfort. - monitor VS and lab results and notify MD as need it. Instruct patient in the use of Incentive Spirometry and/or deep breath and cough. Nursing a nd Respiratory to work together to have patient use every hour while awake. Respiratory to m onitor progress 4 times daily until 75% goal met then turn over to nursing. Will f/u to adjust food and fluids to pt preferences/tolerances and provide nutritional sup plements RESTRAINT-RELATED GOALS: STRATEGIES TO ACHIEVE RESTRAINT GOALS: Outcome: Improving Goal Evaluation: Candida Gautam, SERVICES HOST Respiratory Therapist Signed Pulmonology H&P 07/12/2016 18:21 Expand All Collapse All Severity Score : 4 Class : 2 Kevin has been in Re-hab for 6 days. PRN albuterol nebulizer treatments have been ordered , he hasn't taken one for several days. He found they weren't helpful. He has been using .5 lpm nc during his sleep time, during the day @ rest or while exercising he is on RA and satu rating in the mid to high 90's. Will continue to follow,treat and suggest as appropriate. Severity Score 0-4 ITEM 0 1 2 3 4 3 Respiratory History No Smoking history Current tobacco use Up to 10 Pack year history. Simple home regimen Known Pulmonary Disease 20 pack year history Complex Home regimen 30+ pack year history Severe Pulmonary Disease or exacerbation 0 Surgery Status (current admission) No surgery Minor surgery Lower abdominal rib fractures Thoracic or upper abdominal Thoracic with pulmonary disease or Central Nervous System 0 Chest X-RAY Clear or Normal baseline Unavailable Improving/clearing Abnormal, Unilateral or mild Infiltrates or atelectasis, Chronic changes Infiltrates mild bilateral or unilateral or pleural effusions extensive I nfiltrates, atelectasis or pleural effusions, pneumothorax 0 Respiratory Pattern Regular pattern Respiratory Rate:8-20 Increased Respiratory Rate, labored Dyspnea on exertion, irregular pattern Use of accessory muscles, prolonged expira tory phase nasal flaring Severe Dyspnea , Purse Lip Breathing, Use of accessory muscles 0 Breath Sounds Clear Diminished unilaterally Diminished bilaterally &/or crackles Whe ezing or Rhonchi &/or absent unilateral Absent bilaterally 0 Cough Strong, non productive Moderate, loose, productive Weak, non-productive Weak, ineffective Non-spontaneous or may require suctioning 0 Sputum None Scant / Thin White/clear Moderate Beige/ yellow Large / Thick Dark Green/Brown Copious / Plugs Hemoptysis abbey 0 LOC Alert, oriented, cooperative Disoriented, follows commands Obtunded, arousable, f ollows commands Obtunded, uncooperative, sedated Comatose 1 Oxygen Demand Room air Baseline 1-2 liters 3-6 liters >7 Liters Oxymizer to > 55% 60% or greater Total Severity Score (SS) Class 0-3 1 4-7 2 8-11 3 12-14 4 15+ 5 Routing History Date/Time From To Method 07/12/2016 18:30 Candida Gautam, SERVICES HOST Almas Kush Licea Fax lan of Kathleen PugaHallie RN - 07/12/2016 6:15 PM PDTProblem: Patient Care Overview (Adult) Goal: Care Team Goals & Evaluation PROBLEM-RELATED GOALS: 1. Pt will tolerate general diet/dysphagia advance diet and thin liquids with no s/s of air way compromise by 07/14/16. 2. Pt will be modified independent with ambulation in hallway by 07/14/16. 3. Pt will report a pain level of 1/10 on a pain scale by 07/14/16. 4. Pt will have no s/s of infection by 07/14/16. 5. Mr. Aleman will meet 75% of predicted incentive spirometer goal of 2100 by 07/14/16. 6. Pt will eat >75% of meals by 07/14/16 STRATEGY TO ACHIEVE GOALS: 1. Pt will participate in ST -Pt will participate in all PT activities. -assess pain level throiugh the day and provide PRN pain medications. Encouraged frequent p osition changes for comfort. - monitor VS and lab results and notify MD as need it. Instruct patient in the use of Incentive Spirometry and/or deep breath and cough. Nursing a nd Respiratory to work together to have patient use every hour while awake. Respiratory to m onitor progress 4 times daily until 75% goal met then turn over to nursing. Will f/u to adjust food and fluids to pt preferences/tolerances and provide nutritional sup plements RESTRAINT-RELATED GOALS: STRATEGIES TO ACHIEVE RESTRAINT GOALS: Outcome: Improving Goal Evaluation: 1. Tolerating regular dysphagia advance diet, sitting up in chair for all meals and sittin g up in bed when swallowing medications. Has been taking medications whole w healthshake, re fused applesauce today 2. Transferring and ambulating w fww+sba, requiring cuing w precautions 3. C/o pain to bilat lower back, described as intermittent ache, had oxycodone 5mg twice du ring day shift, taking zanaflex for spasms, also taking baclofen tid 4. Incisions to lower back and left flank w steri-strips, well approximated, no s/sx infect ion. 5. Encouraged to cough and deep breath, performing well after encouragement, less wheezing noted today, continues requiring 1L/min oxygen via nc r/t desaturation when sleeping 6. Eating 50-75% most meals, requires encouragement w meals lan of Care - Mellissa Cantu, OT - 07/12/2016 4:38 PM PDTProblem: Patient Care Overview (Adult) Goal: Care Team Goals & Evaluation PROBLEM-RELATED GOALS: 1. Pt will tolerate general diet and thin liquids with no s/s of airway compromise by 07/14. 2. Pt will be modified independent with ambulation in hallway by 07/14/16. 3. Pt will report a pain level of 1/10 on a pain scale by 07/14/16. 4. Pt will have no s/s of infection by 07/14/16. 5. Mr. Aleman will meet 75% of predicted incentive spirometer goal of 2100 by 07/14/16. 6. Pt will eat >75% of meals by 07/14/16 STRATEGY TO ACHIEVE GOALS: 1. Pt will participate in ST -Pt will participate in all PT activities. -assess pain level throiugh the day and provide PRN pain medications. Encouraged frequent p osition changes for comfort. - monitor VS and lab results and notify MD as need it. Instruct patient in the use of Incentive Spirometry and/or deep breath and cough. Nursing a nd Respiratory to work together to have patient use every hour while awake. Respiratory to m onitor progress 4 times daily until 75% goal met then turn over to nursing. Will f/u to adjust food and fluids to pt preferences/tolerances and provide nutritional sup plements RESTRAINT-RELATED GOALS: STRATEGIES TO ACHIEVE RESTRAINT GOALS: Outcome: Improving Occupational Therapy Daily Treatment Note Patient Information Patient Name: Kevin Aleman . Date of : 1945 Age: 70 y.o. Precautions/Limitations: falls, spinal, orthotic/bracing, corrective lenses, swallowing Start Time: 1506 Stop time: 1530 Time Calculation: 24 minutes Missed Treatment Time: 10 minutes Total Treatment Time: 24 minutes TimedTreatment Code Minutes: 24 minutes Frequency: daily Subjective: Mild complaints of L anterior thigh pain, groin area. Objective: Pt seen for functional mobility. Reviewed technique initiated by UNDERWEAR TRIMMER to reduce impulsivity - Stop, Think, Act...STA. Pt ambulated 30 ft intervals w/ need to manage 4WW. 4/4 stand-si t w/ good technique, SBA. 3/4 sit-stand w/ fair+ technique, verbal cues. [address] and by unlocking L brake. Process reviewed & problem solved w/ moderate cues. Turned in 4W W to have a seat x 4 w/ good technique, SBA for safety. Education: Safety; 4WW mgmt Treatment Provided: Functional mobility; safety awareness Patient Status/Goals Reflects last filed data of patient status; may be from multiple contributors. Assessment: SBA & intermittent verbal cues for safe mgmt of 4WW. Moderate cues to problem solve stand-sit. Occupational Therapy Anticipated Discharge Needs are: home with home health Have the anticipated discharge needs changed? no Post discharge occupational therapy recommendation: TBD Plan for next treatment: 1P,JM.Caregiver training; U/LB dressing;C-Bracing mgmt/education, 4WW mgmt/mobility Electronically signed by: Mellissa Cantu OT, 07/12/2016 16:34 lan of Care - W Abi pickard, PT - 07/12/2016 4:27 PM PDTProblem: Patient Care Overview (Adult) Goal: Care Team Goals & Evaluation PROBLEM-RELATED GOALS: 1. Pt will tolerate general diet and thin liquids with no s/s of airway compromise by 07/14. 2. Pt will be modified independent with ambulation in hallway by 07/14/16. 3. Pt will report a pain level of 1/10 on a pain scale by 07/14/16. 4. Pt will have no s/s of infection by 07/14/16. 5. Mr. Aleman will meet 75% of predicted incentive spirometer goal of 2100 by 10/30/16. 6. Pt will eat >75% of meals by 07/14/16 STRATEGY TO ACHIEVE GOALS: 1. Pt will participate in ST -Pt will participate in all PT activities. -assess pain level throiugh the day and provide PRN pain medications. Encouraged frequent p osition changes for comfort. - monitor VS and lab results and notify MD as need it. Instruct patient in the use of Incentive Spirometry and/or deep breath and cough. Nursing a nd Respiratory to work together to have patient use every hour while awake. Respiratory to m onitor progress 4 times daily until 75% goal met then turn over to nursing. Will f/u to adjust food and fluids to pt preferences/tolerances and provide nutritional sup plements RESTRAINT-RELATED GOALS: STRATEGIES TO ACHIEVE RESTRAINT GOALS: Physical Therapy Daily Treatment Note Patient Information Patient Name: Kevin Aleman . Date of : 1945 Age: 70 y.o. Precautions/Limitations: falls, spinal, orthotic/bracing, corrective lenses, swallowing History of Presenting Problem: back and right hip pain. Pt is now s/p L2-4 LAIF; L4-L5 TLI F; L2-L5 posterior instrumentation. PT Diagnosis: Impaired mobility Start Time: 1303 Stop time: 1356 Time Calculation: 53 minutes Missed Treatment Time: 0 minutes Total Treatment Time: 53 minutes TimedTreatment Code Minutes: 53 minutes Subjective: Pt agreed to work with PT and tolerated tx well. Objective: Treatment Provided: Pt was seen for gait, balance, stair training to improve independnece i n functional mobility and provided verbal cues for correct sequence and technique for safety . See below for details. STM on lower back to dec.pain on (L) lower back and applied cold pack. Pt reported dec. Pain after tx. Education: Safe use of AD. Lumbar precautions. Patient Status/Goals: Reflects last filed data of patient status; may be from multiple contributors. Gait v. cuing for inc. toe clearance and heel strike. wearing AFO. Level of [place] : supervision required, verbal cues required Assistive Device: 4 wheeled walker (4WW) Distance (feet): 40'+ 100' Gait Pattern Analysis: 2-point gait Gait Deviations: hiram decreased, step length decreased, [id number] clearance decreased , weight-shifting ability decreased, stride length decreased Impairments: pain, decreased flexibility, muscle tone abnormal, strength decreased, impaire d balance, motor control impaired Stairs pt was able to complete stair training with v. cueing for sequencing and demo. Number of Stairs: 4 Handrail Location: both sides Level of [place]: supervision required, verbal cues required Assistive Device: none Technique Used: step over step (ascending), step to step (ascending) Safety Issues: balance decreased during turns Impairments: muscle tone abnormal, pain, decreased flexibility, ROM decreased, impaired bal ance, motor control impaired Transfers pt requires v. cueing to lock brakes x3 Bed-Chair, Level of [place]: supervision required Chair-Bed, Level of [place]: supervision required, verbal cues required [id number], Assistive Device: 4 wheeled walker (4WW) Sit-Stand, Level of [place]: supervision required, verbal cues required Stand-Sit, Level of [place]: supervision required, verbal cues required [id number], Assistive Device: 4 wheeled walker (4WW), 2 wheeled walker (FWW) Safety Issues: step length decreased Impairments: decreased flexibility, ROM decreased, impaired balance, pain Therapeutic Exercise Step-ups one step x10, Step toe touch x10,to improve heel strike during gait Balance exercises: narrow base of support, sidestep, walk forward, walk backwards (reaching while standing on blue foam pad) STG GOALS Bed Mobility Goal, Activity Type: roll left/roll right, scoot/bridge, supine to sit/sit to supine [place] Level: modified independence Assistive Device: none Time to Achieve: 2 - 3 days Goal Status: met Transfer Training Goal, Activity Type: bed to chair /chair to bed, sit to stand/stand to si t [place] Level: modified independence Assistive Device: 2 wheeled walker (FWW) Time to Achieve: 2 - 3 days Goal Status: progressing toward goal Gait Training Goal, [place] Level: contact guard assist Assistive Device: 4 wheeled walker (4WW), 2 wheeled walker (FWW) Distance: 150 feet Time to Achieve: 2 - 3 days Goal Status: revised Stairs Goal, [place] Level: contact guard assist Assistive Device: (Handrails) Number of Stairs: 12 Time to Achieve: 2 - 3 days Goal Status: progressing toward goal LTG GOALS Bed Mobility Goal, Activity Type: roll left/roll right, scoot/bridge, supine to sit/sit to supine [place] Level: independent Assistive Device: none Time to Achieve: 1 wk Goal Status: progressing toward goal Transfer Training Goal, Activity Type: bed to chair /chair to bed, sit to stand/stand to si t [place] Level: modified independence Assistive Device: 2 wheeled walker (FWW) Time to Achieve: 1 wk Goal Status: progressing toward goal Gait Training Goal, [place] Level: modified independence Assistive Device: 2 wheeled walker (FWW) Distance: 300 feet Time to Achieve: 1 wk Goal Status: progressing toward goal Number of Stairs: 16 Time to Achieve: 1 wk Goal Status: progressing toward goal Assessment: Pt progressing towards PT goals. Pt was able to tolerated step touch ex on (R) LE on the stairs w/o significant inc.in pain whereas pt has difficulty lifting (R) leg 3 da ys ago. Pt still not clearing (R) foot completely during ambulation and will benefit from a djustments of AFO. Physical Therapy Anticipated Discharge Needs are: home with home health Have the anticipated discharge needs changed? no Post discharge physical therapy recommendation: Home health PT Plan for next treatment: IRF, BID, CW 1P FWW progressive gait with AFO, bed mobility, cezar ce and transfer training. Electronically signed by: ABI DE DIOS, PT, 07/12/2016 16:07 lan of Care - Dayami Elizabeth, Speech Pathologist - 07/12/2016 4:14 PM PDTProblem: Patient Care Overview (Adult) Goal: Care Team Goals & Evaluation PROBLEM-RELATED GOALS: 1. Pt will tolerate general diet and thin liquids with no s/s of airway compromise by 07/14. 2. Pt will be modified independent with ambulation in hallway by 07/14/16. 3. Pt will report a pain level of 1/10 on a pain scale by 07/14/16. 4. Pt will have no s/s of infection by 07/14/16. 5. Mr. Aleman will meet 75% of predicted incentive spirometer goal of 2100 by 07/14/16. 6. Pt will eat >75% of meals by 07/14/16 STRATEGY TO ACHIEVE GOALS: 1. Pt will participate in ST -Pt will participate in all PT activities. -assess pain level throiugh the day and provide PRN pain medications. Encouraged frequent p osition changes for comfort. - monitor VS and lab results and notify MD as need it. Instruct patient in the use of Incentive Spirometry and/or deep breath and cough. Nursing a nd Respiratory to work together to have patient use every hour while awake. Respiratory to m onitor progress 4 times daily until 75% goal met then turn over to nursing. Will f/u to adjust food and fluids to pt preferences/tolerances and provide nutritional sup plements RESTRAINT-RELATED GOALS: STRATEGIES TO ACHIEVE RESTRAINT GOALS: Outcome: Improving Speech Therapy IRF Treatment Note Patient Information Patient Name: Kevin Aleman Sr. Date of : 1945 Age: 70 y.o. Summary: Pt seen for session upright in bed. C brace in place. Kevin stated that he is sw allowing okay but still feels sharp pain when swallowing at times with liquids or solids. SL P educated about cause of this pain and the importance of eating in his chair. Pt agreed to eating up in the chair with EQUINE MANAGER assistance. Pt will benefit from use of timer to adhere to h is back precaution 45 minute sitting limit. Pt was able to verbally restate all of his back precautions with min cueing. UNDERWEAR TRIMMER then discussed importance of reducing impulsivity to ensure he is adhereing to these precautions. He admits that he will "just do something and then re member that he shouldn't do it." UNDERWEAR TRIMMER taught the acronym STA (Stop Think Act). After explanat ion Pt was able to verbally restated this. After session UNDERWEAR TRIMMER d/w OT reminding him about usin g STA when mobilizing to improve adherence to back precautions and reduce impulsivity. Speech language pathology will follow Kevin Aleman Sr. 3 times/wk until discharge from therapy or discharged from the hospital. Speech Language Pathology Anticipated Discharge Needs are: home with family/caregiver Post discharge speech language pathology recommendation: no further Speech Therapy Identified Problems Needing Skilled Intervention: MIld cognitive deficits Planned Interventions: diet texture modification, compensatory strategies Patient Status/Goals Reflects last filed data of patient status; may be from multiple contributors. FIM FIM Communication Comprehension - Auditory: 6 Comprehension - Visual: 6 Comprehension Score Evidence: 6 Uses Glasses Expression - Vocal: 6 Expression - Non Vocal: 6 Expression Score Evidence: 6 Extra Time FIM Social/Cognition Social Interaction: 6 Social Interaction Score Evidence: 6 Extra Time Problem Solvin Problem Solving Score Evidence: 5 Daily Prbs 91-99% Memory: 6 Memory Score Evidence: 6 Extra Time NOMS (National Outcome Measures-Standardized) FCM/NOMS Swallowin/CJ PO w/min diet rest, min cues Swallow Recommendations Recommended Solid Texture: dysphagia advanced Recommended Liquid Texture: thin liquids Recommended Medication Delivery: whole pills with thin liquids, crushed pills with puree, i f able Recommended Feeding/Eating Techniques: alternate between small bites and sips of food/liqui d, check mouth frequently for oral residue/pocketing, oral care before and after each meal, maintain upright posture during/after eating for 30 mins, slow rate STG Goals Cognition Goal: Pt will recall back precautions verbally with visual aid for assistance to improve safety over three consecutive sessions. Time to Achieve Goals: 2 - 3 days Goal Status: continued Dysphagia Goal: Pt will tolerate level 3 dysphagia advanced diet and thin liquids with no s /s of airway compromise by 07/08/16. Time to Achieve Goals: 2 days Goal Status: continued, met LTG Goals Cognition Goal: Pt will recall back precautions to 100% accuracy indep to imrprove safety w ith mobilizing. Time to Achieve Goals: 2 - 3 days Goal Status: continued Start Time: 1430 Stop time: 1458 Time Calculation: 28 minutes Missed Treatment Time: 0 minutes Total Treatment Time: 28 minutes TimedTreatment Code Minutes: 0 minutes Plan for next treatment: reduce impulsivity with STA (Stop Think Act) Electronically signed by: Dayami Anthony, SPEECH PATHO, 07/12/2016 16:14 lan of Care - Abi De Dios, PT - 07/12/2016 12:40 PM PDTProblem: Patient Care Overview (Adult) Goal: Care Team Goals & Evaluation PROBLEM-RELATED GOALS: 1. Pt will tolerate general diet and thin liquids with no s/s of airway compromise by 07/14. 2. Pt will be modified independent with ambulation in hallway by 07/14/16. 3. Pt will report a pain level of 1/10 on a pain scale by 07/14/16. 4. Pt will have no s/s of infection by 07/14/16. 5. Mr. Aleman will meet 75% of predicted incentive spirometer goal of 2100 by 07/14/16. 6. Pt will eat >75% of meals by 07/14/16 STRATEGY TO ACHIEVE GOALS: 1. Pt will participate in ST -Pt will participate in all PT activities. -assess pain level throiugh the day and provide PRN pain medications. Encouraged frequent p osition changes for comfort. - monitor VS and lab results and notify MD as need it. Instruct patient in the use of Incentive Spirometry and/or deep breath and cough. Nursing a nd Respiratory to work together to have patient use every hour while awake. Respiratory to m onitor progress 4 times daily until 75% goal met then turn over to nursing. Will f/u to adjust food and fluids to pt preferences/tolerances and provide nutritional sup plements RESTRAINT-RELATED GOALS: STRATEGIES TO ACHIEVE RESTRAINT GOALS: Outcome: Improving Physical Therapy Daily Treatment Note Patient Information Patient Name: Kevin Aleman . Date of : 1945 Age: 70 y.o. Precautions/Limitations: falls, spinal, orthotic/bracing, corrective lenses, swallowing History of Presenting Problem: back and right hip pain. Pt is now s/p L2-4 LAIF; L4-L5 TLI F; L2-L5 posterior instrumentation. PT Diagnosis: Impaired mobility Start Time: 846 Stop time: 934 Time Calculation: 48 minutes Missed Treatment Time: 0 minutes Total Treatment Time: 48 minutes TimedTreatment Code Minutes: 48 minutes Subjective: Receive pt resting in bed and agreeable to work with PT. Pt maintained SpO2 ab ove 90% on room air during activities. Objective: Treatment Provided: gait training with FWW then trial 4WW x 150' SBA with verbal cues from inc.hip/knee flexion on (R) to inc.toe clearance to normalize gait pattern. Bed mobility an d transfer training to inc.independnece. Thera ex SciFit recumbent stepper x 10 mins to imp rove activity tolerance and reciprocal LE/UE movement to improve gait. Education: Reviewed spinal precautions. Patient Status/Goals: Reflects last filed data of patient status; may be from multiple contributors. Gait max cuing for inc.toe clearance. wearing AFO. Level of [place] : supervision required, verbal cues required Assistive Device: 2 wheeled walker (FWW), 4 wheeled walker (4WW) Distance (feet): 150' Gait Pattern Analysis: 2-point gait Gait Deviations: hiram decreased, hat-pe-qbpcg clearance decreased, weight-shifting abili ty decreased, step length decreased, stride length decreased Impairments: pain, decreased flexibility, muscle tone abnormal, strength decreased, impaire d balance, motor control impaired Transfers blocked practice , verbal cues to push from chair to stand. Bed-Chair, Level of [place]: supervision required, verbal cues required Chair-Bed, Level of [place]: supervision required, verbal cues required [id number], Assistive Device: 2 wheeled walker (FWW), 4 wheeled walker (4WW) Sit-Stand, Level of [place]: supervision required, verbal cues required Stand-Sit, Level of [place]: supervision required, verbal cues required [id number], Assistive Device: 2 wheeled walker (FWW), 4 wheeled walker (4WW) Safety Issues: step length decreased Impairments: pain, decreased flexibility, strength decreased, impaired balance, coordinatio n impaired Bed Mobility blocked practice for Assistive Device: bed rails Roll Left, Level of [place]: modified independence Supine to Sit, Level of [place]: modified independence Sit to Supine, Level of [place]: modified independence Safety Issues: decreased use of arms for pushing/pulling, decreased use of legs for bridgin g/pushing Impairments: pain, decreased flexibility, strength decreased, muscle tone abnormal Therapeutic Exercise SciFit x 10 mins.quick start mode to improve activity tolerance and reciprocal UE/LE moveme nt to improve gait. STG GOALS Bed Mobility Goal, Activity Type: roll left/roll right, scoot/bridge, supine to sit/sit to supine [place] Level: modified independence Assistive Device: none Time to Achieve: 2 - 3 days Goal Status: met Transfer Training Goal, Activity Type: bed to chair /chair to bed, sit to stand/stand to si t [place] Level: modified independence Assistive Device: 2 wheeled walker (FWW) Time to Achieve: 2 - 3 days Goal Status: progressing toward goal Gait Training Goal, [place] Level: contact guard assist Assistive Device: 2 wheeled walker (FWW) Distance: 150 feet Time to Achieve: 2 - 3 days Goal Status: met Stairs Goal, [place] Level: contact guard assist Assistive Device: (Handrails) Number of Stairs: 12 Time to Achieve: 2 - 3 days Goal Status: not addressed LTG GOALS Bed Mobility Goal, Activity Type: roll left/roll right, scoot/bridge, supine to sit/sit to supine [place] Level: independent Assistive Device: none Time to Achieve: 1 wk Goal Status: progressing toward goal Transfer Training Goal, Activity Type: bed to chair /chair to bed, sit to stand/stand to si t [place] Level: modified independence Assistive Device: 2 wheeled walker (FWW) Time to Achieve: 1 wk Goal Status: progressing toward goal Gait Training Goal, [place] Level: modified independence Assistive Device: 2 wheeled walker (FWW) Distance: 300 feet Time to Achieve: 1 wk Goal Status: progressing toward goal Number of Stairs: 16 Time to Achieve: 1 wk Goal Status: not addressed FIM: FIM Transfers Bed/Chair/Wheelchair: 5 Bed/Chair/WC Score Evidence: 5 Verbal Cues FIM Locomotion Walk: 5 Distance Walked (feet): 150 feet Walk Score Evidence: 2 Pt 25-49% Effort/50-149ft FIM Modifier DC Locomotion: walk FIM Modifier Walk Distance: 3 150 feet Stairs: 0 Stairs Score Evidence: 0 Did Not Occur Assessment: Pt progressing towards PT goals. Pt endurance improving and was able to improv e tor clearance on (R). Still recommending some adjustments on AFO to improve toe clearance . Cont. PT to improve functional mobility for safe d/c to home. Physical Therapy Anticipated Discharge Needs are: home with home health Have the anticipated discharge needs changed? no Post discharge physical therapy recommendation: Home health PT Plan for next treatment: IRF, BID, CW 1P FWW progressive gait with AFO, bed mobility, cezar ce and transfer training. Electronically signed by: ABI DE DIOS PT, 07/12/2016 12:32 lan of Care - Nicolle Antony COTA - 07/12/2016 9:33 AM PDTProblem: Patient Care Overview (Adult) Goal: Care Team Goals & Evaluation PROBLEM-RELATED GOALS: 1. Pt will tolerate general diet and thin liquids with no s/s of airway compromise by 07/14. 2. Pt will be modified independent with ambulation in hallway by 07/14/16. 3. Pt will report a pain level of 1/10 on a pain scale by 07/14/16. 4. Pt will have no s/s of infection by 07/14/16. 5. Mr. Aleman will meet 75% of predicted incentive spirometer goal of 2100 by 07/14/16. 6. Pt will eat >75% of meals by 07/14/16 STRATEGY TO ACHIEVE GOALS: 1. Pt will participate in ST -Pt will participate in all PT activities. -assess pain level throiugh the day and provide PRN pain medications. Encouraged frequent p osition changes for comfort. - monitor VS and lab results and notify MD as need it. Instruct patient in the use of Incentive Spirometry and/or deep breath and cough. Nursing a nd Respiratory to work together to have patient use every hour while awake. Respiratory to m onitor progress 4 times daily until 75% goal met then turn over to nursing. Will f/u to adjust food and fluids to pt preferences/tolerances and provide nutritional sup plements RESTRAINT-RELATED GOALS: STRATEGIES TO ACHIEVE RESTRAINT GOALS: Occupational Therapy Daily Treatment Note Patient Information Patient Name: Kevin Aleman Sr. Date of : 1945 Age: 70 y.o. Precautions/Limitations: falls, spinal, orthotic/bracing, corrective lenses, swallowing Start Time: 707 Stop time: 807 Time Calculation: 60 minutes Missed Treatment Time: 10 minutes Total Treatment Time: 60 minutes TimedTreatment Code Minutes: 60 minutes Frequency: daily Subjective: "my really needs to know my precautions" Objective: Pt seen for ADL training , precaution reviw, and safety awareness with precautions during A DL's. Pt recuiring VC's first this for twisting in supine. touch cues for log roll this am . Pt ambulated to sink using FWW for sponge bath. VC's throughout session for precautions. see below for pt's level of assist. Pt stood at sink for sponge bath. sat for LB dressi ng. VC's for technique with transmitter engineer in charge. Pt stayed up in chair for breakfast. Education: spinal precaution review Treatment Provided: ADL training Patient Status/Goals Reflects last filed data of patient status; may be from multiple contributors. ADLs sponge bath Bathing, Level of [place]: verbal cues required, supervision required, set up required , minimum assist (75% patient effort) Assistive Device: long-handled sponge Bathing Assess/Train, Position: sitting, supported standing Bathing Assess/Train, Impairments: ROM decreased, strength decreased, pain seated UB Dressing, Level of [place]: set up required, verbal cues required, supervision requ ired, minimum assist (75% patient effort) (with LSO on) Assistive Device: none UB Dressing Assess/Train, Position: sitting . LB, Level of [place]: minimum assist (75% patient effort), set up required, verbal cue s required Assistive Device: transmitter engineer in charge, sock-aid LB Dressing Assess/Train, Position: sitting LB Dressing Assess/Train, Impairments: decreased flexibility, ROM decreased, strength decre ased, pain Not addressed this am Toileting, Level of [place]: verbal cues required, supervision required Assistive Device: grab bar Toileting Assess/Train, Position: sitting, supported sitting Toileting Assess/Train, Impairments: decreased flexibility, ROM decreased, strength decreas ed, pain not addressed this AM Grooming, Level of [place]: set up required, verbal cues required Assistive Device: none Grooming Assess/Train, Position: supported standing Grooming Assess/Train, Impairments: strength decreased, pain STG Goals Transfer Training Goal, Activity Type: toilet [place] Level: minimum assist (75% patient effort) Assistive Device: 2 wheeled walker (FWW) Time to Achieve: 5 - 7 days Goal Status: met Grooming Goal, [place] Level: set up required, verbal cues required Adaptive Equipment: none Position: sitting in chair Time to Achieve: 2 - 3 days Goal Status: met Bathing Goal, [place] Level: minimum assist (75% patient effort) Adaptive Equpiment: grab bars, scrub brush, shower chair Time to Achieve: 5 - 7 days Goal Status: met Toileting Goal, [place] Level: minimum assist (75% patient effort), verbal cues requir ed Assistive Device: toilet paper aid Time to Achieve: 5 - 7 days Goal Status: met UB Dressing Goal, [place] Level: minimum assist (75% patient effort), verbal cues requ ired Adaptive Equipment: none Time to Achieve: 5 - 7 days Goal Status: met LB Dressing Goal, [place] Level: moderate assist (50% patient effort) Adaptive Equipment: transmitter engineer in charge, dressing stick, shoe horn, long handled Time to Achieve: 5 - 7 days Goal Status: met IADL Goal: LIght snack/meal prep w/ supervision. Time to Achieve: 5 - 7 days Goal Status: continued LTG Goals Transfer Training Goal, Activity Type: walk-in shower, toilet [place] Level: contact guard assist Assistive Device: 2 wheeled walker (FWW), grab bars Time to Achieve: 5 - 7 days Goal Status: progressing toward goal Grooming Goal, [place] Level: set up required Adaptive Equipment: none Position: sitting in chair Time to Achieve: 5 - 7 days Goal Status: met Bathing Goal, [place] Level: set up required, verbal cues required Adaptive Equpiment: grab bars, scrub brush Time to Achieve: 5 - 7 days Goal Status: met Toileting Goal, [place] Level: supervision required Assistive Device: none Time to Achieve: 5 - 7 days Goal Status: met UB Dressing Goal, [place] Level: set up required Adaptive Equipment: none Time to Achieve: 5 - 7 days Goal Status: met LB Dressing Goal, [place] Level: verbal cues required, set up required Adaptive Equipment: transmitter engineer in charge, laces, elastic, shoe horn, long handled, sock-aid Time to Achieve: 5 - 7 days Goal Status: continued, progressing toward goal IADL Goal: Pt will prepare light snack w/ mod I. Time to Achieve: 1 wk Goal Status: continued Assessment: Poor carry over of precautions and technique with AE use during LB dressing thi s AM Occupational Therapy Anticipated Discharge Needs are: home with home health Have the anticipated discharge needs changed? no Post discharge occupational therapy recommendation: TBD Plan for next treatment: 1P, DV, precautions, safety, light meal prep Electronically signed by: CHEMO Ivy, 07/12/2016 9:25 lan of Care - Court Llanos RN - 07/12/2016 7:42 AM PDTProblem: Patient Care Overview (Adult) Goal: Care Team Goals & Evaluation PROBLEM-RELATED GOALS: 1. Pt will tolerate general diet and thin liquids with no s/s of airway compromise by 07/14. 2. Pt will be modified independent with ambulation in hallway by 07/14/16. 3. Pt will report a pain level of 1/10 on a pain scale by 07/14/16. 4. Pt will have no s/s of infection by 07/14/16. 5. Mr. Aleman will meet 75% of predicted incentive spirometer goal of 2100 by 07/14/16. 6. Pt will eat >75% of meals by 07/14/16 STRATEGY TO ACHIEVE GOALS: 1. Pt will participate in ST -Pt will participate in all PT activities. -assess pain level throiugh the day and provide PRN pain medications. Encouraged frequent p osition changes for comfort. - monitor VS and lab results and notify MD as need it. Instruct patient in the use of Incentive Spirometry and/or deep breath and cough. Nursing a nd Respiratory to work together to have patient use every hour while awake. Respiratory to m onitor progress 4 times daily until 75% goal met then turn over to nursing. Will f/u to adjust food and fluids to pt preferences/tolerances and provide nutritional sup plements RESTRAINT-RELATED GOALS: STRATEGIES TO ACHIEVE RESTRAINT GOALS: Goal Evaluation: Pt slept on and off during the night. Pain was controlled with oxycodone. He continues to r equire cueing with his precautions. He has been calling more appropriately. lan of Care - Jordan Huggins Jr., SERVICES HOST - 07/12/2016 5:12 AM PDTProblem: Patient Care Overview (Adult) Goal: Care Team Goals & Evaluation PROBLEM-RELATED GOALS: 1. Pt will tolerate general diet and thin liquids with no s/s of airway compromise by 07/14. 2. Pt will be modified independent with ambulation in hallway by 07/14/16. 3. Pt will report a pain level of 1/10 on a pain scale by 07/14/16. 4. Pt will have no s/s of infection by 07/14/16. 5. Mr. Aleman will meet 75% of predicted incentive spirometer goal of 2100 by 07/14/16. 6. Pt will eat >75% of meals by 07/14/16 STRATEGY TO ACHIEVE GOALS: 1. Pt will participate in ST -Pt will participate in all PT activities. -assess pain level throiugh the day and provide PRN pain medications. Encouraged frequent p osition changes for comfort. - monitor VS and lab results and notify MD as need it. Instruct patient in the use of Incentive Spirometry and/or deep breath and cough. Nursing a nd Respiratory to work together to have patient use every hour while awake. Respiratory to m onitor progress 4 times daily until 75% goal met then turn over to nursing. Will f/u to adjust food and fluids to pt preferences/tolerances and provide nutritional sup plements RESTRAINT-RELATED GOALS: STRATEGIES TO ACHIEVE RESTRAINT GOALS: Goal Evaluation: Kevin tolerated Respiratory medicine well and was coached on IS. lan of Care - Hallie Heredia ra RN - 07/11/2016 8:55 PM PDTProblem: Patient Care Overview (Adult) Goal: Care Team Goals & Evaluation PROBLEM-RELATED GOALS: 1. Pt will tolerate general diet and thin liquids with no s/s of airway compromise by 07/14. 2. Pt will be modified independent with ambulation in hallway by 07/14/16. 3. Pt will report a pain level of 1/10 on a pain scale by 07/14/16. 4. Pt will have no s/s of infection by 07/14/16. 5. Mr. Aleman will meet 75% of predicted incentive spirometer goal of 2100 by 07/14/16. 6. Pt will eat >75% of meals by 07/14/16 STRATEGY TO ACHIEVE GOALS: 1. Pt will participate in ST -Pt will participate in all PT activities. -assess pain level throiugh the day and provide PRN pain medications. Encouraged frequent p osition changes for comfort. - monitor VS and lab results and notify MD as need it. Instruct patient in the use of Incentive Spirometry and/or deep breath and cough. Nursing a nd Respiratory to work together to have patient use every hour while awake. Respiratory to m onitor progress 4 times daily until 75% goal met then turn over to nursing. Will f/u to adjust food and fluids to pt preferences/tolerances and provide nutritional sup plements RESTRAINT-RELATED GOALS: STRATEGIES TO ACHIEVE RESTRAINT GOALS: Outcome: Improving Goal Evaluation: 1. Tolerating general diet and thin liquids. Taking rx whole w water and/or applesauce 2. Transferring w fww+sba, set up required, PT will be working on AFO for RLE 3. C/o minimal pain to bilat lower back, described as aching discomfort, rx oxycodone given x1, scheduled requip given for restless legs 4. Lower back incisions and left flank incisions covered w bandaid's c/d/i, no s/sx infecti on. Bruising noted to left flank 5. Performing deep breathing activities only w encouragement 6. Eating 75% most of his meals today, encouraged to drink fluids. Pt stated "it hurts to s wallow fluids" pt will follow up w GI on outpatient setting when d/c'd lan of Care - Viet, Court Naik RN - 07/11/2016 7:50 PM PDTBedside report done, pt denies needs at this timeEle ctronically signed by Court Llanos RN at 07/11/2016 10:42 PM PDTPlan of Care José Tolbert, PT - 07/11/2016 4:50 PM PDTProblem: Patient Care Overview (Adult) Goal: Care Team Goals & Evaluation PROBLEM-RELATED GOALS: 1. Pt will tolerate general diet and thin liquids with no s/s of airway compromise by 07/14. 2. Pt will be modified independent with ambulation in hallway by 07/14/16. 3. Pt will report a pain level of 1/10 on a pain scale by 07/12/16. 4. Pt will have no s/s of infection by 07/14/16. 5. Mr. Aleman will meet 75% of predicted incentive spirometer goal of 2100 by 07/14/16. 6. Pt will eat >75% of meals by 07/14/16 STRATEGY TO ACHIEVE GOALS: 1. Pt will participate in ST -Pt will participate in all PT activities. -assess pain level throiugh the day and provide PRN pain medications. Encouraged frequent p osition changes for comfort. - monitor VS and lab results and notify MD as need it. Instruct patient in the use of Incentive Spirometry and/or deep breath and cough. Nursing a nd Respiratory to work together to have patient use every hour while awake. Respiratory to m onitor progress 4 times daily until 75% goal met then turn over to nursing. Will f/u to adjust food and fluids to pt preferences/tolerances and provide nutritional sup plements RESTRAINT-RELATED GOALS: STRATEGIES TO ACHIEVE RESTRAINT GOALS: Outcome: Improving Physical Therapy Daily Treatment Note Patient Information Patient Name: Kevin Aleman Sr. Date of : 1945 Age: 70 y.o. Precautions/Limitations: falls, spinal, orthotic/bracing, corrective lenses, swallowing History of Presenting Problem: back and right hip pain. Pt is now s/p L2-4 LAIF; L4-L5 TLI F; L2-L5 posterior instrumentation. PT Diagnosis: Impaired mobility Start Time: 1510 Stop time: 152 Time Calculation: 16 minutes Missed Treatment Time: 0 minutes Total Treatment Time: 16 minutes TimedTreatment Code Minutes: 16 minutes Subjective: Received pt resting in bed and agreeable to work with PT. Project Construction Assistant Manager present to adjust AFO to add DF assist to improve gait. Objective: Treatment Provided: Gait training with FWW x 100' SBA with verbal cues for heel strike on ( R) to improve gait and normalized gait pattern. Pt able to correct gait 50% of the time wit h cuing. Education: lunbar precautions C brace. Patient Status/Goals: Reflects last filed data of patient status; may be from multiple contributors. Gait max cuing for inc.hip/knee flex.on (R) to improve toe clearance Level of [place] : supervision required Assistive Device: 2 wheeled walker (FWW) Distance (feet): 100' Gait Pattern Analysis: 2-point gait Gait Deviations: hiram decreased, double stance time increased, [id number] clearance de creased, weight-shifting ability decreased, step length decreased, stride length decreased, limb motion velocity decreased Transfers blocked practice , verbal cues to push from chair to stand. Bed-Chair, Level of [place]: supervision required, verbal cues required Chair-Bed, Level of [place]: supervision required, verbal cues required [id number], Assistive Device: 2 wheeled walker (FWW) Sit-Stand, Level of [place]: supervision required, verbal cues required Stand-Sit, Level of [place]: set up required, supervision required [id number], Assistive Device: 2 wheeled walker (FWW) Safety Issues: step length decreased Impairments: pain, decreased flexibility, strength decreased, impaired balance, muscle tone abnormal Bed Mobility blocked practice for Assistive Device: bed rails Roll Left, Level of [place]: supervision required, verbal cues required Supine to Sit, Level of [place]: supervision required, verbal cues required Sit to Supine, Level of [place]: supervision required, verbal cues required Safety Issues: decreased use of legs for bridging/pushing, cognitive deficits limit underst anding Impairments: pain, decreased flexibility, strength decreased STG GOALS Bed Mobility Goal, Activity Type: roll left/roll right, scoot/bridge, supine to sit/sit to supine [place] Level: modified independence Assistive Device: none Time to Achieve: 2 - 3 days Goal Status: progressing toward goal Transfer Training Goal, Activity Type: bed to chair /chair to bed, sit to stand/stand to si t [place] Level: modified independence Assistive Device: 2 wheeled walker (FWW) Time to Achieve: 2 - 3 days Goal Status: progressing toward goal Gait Training Goal, [place] Level: contact guard assist Assistive Device: 2 wheeled walker (FWW) Distance: 150 feet Time to Achieve: 2 - 3 days Goal Status: progressing toward goal Stairs Goal, [place] Level: contact guard assist Assistive Device: (Handrails) Number of Stairs: 12 Time to Achieve: 2 - 3 days Goal Status: not addressed LTG GOALS Bed Mobility Goal, Activity Type: roll left/roll right, scoot/bridge, supine to sit/sit to supine [place] Level: independent Assistive Device: none Time to Achieve: 1 wk Goal Status: progressing toward goal Transfer Training Goal, Activity Type: bed to chair /chair to bed, sit to stand/stand to si t [place] Level: modified independence Assistive Device: 2 wheeled walker (FWW) Time to Achieve: 1 wk Goal Status: progressing toward goal Gait Training Goal, [place] Level: modified independence Assistive Device: 2 wheeled walker (FWW) Distance: 300 feet Time to Achieve: 1 wk Goal Status: progressing toward goal Number of Stairs: 16 Time to Achieve: 1 wk Goal Status: not addressed FIM: FIM Transfers Bed/Chair/Wheelchair: 5 Bed/Chair/WC Score Evidence: 5 Safety Supervision, 5 Verbal Cues FIM Locomotion Walk: 2 Distance Walked (feet): 100 feet Walk Score Evidence: 2 Pt 25-49% Effort/50-149ft FIM Modifier DC Locomotion: walk FIM Modifier Walk Distance: 2 50-149 feet Stairs: 0 Stairs Score Evidence: 0 Did Not Occur Assessment: Dec. Toe clearance on (R) during swing phase of gait and required cuing to jasmina r (R) foot. Pt has impaired memory and has difficulty retaining instructions. Cont.POC. Physical Therapy Anticipated Discharge Needs are: home with assist, home with home health Have the anticipated discharge needs changed? no Post discharge physical therapy recommendation: Home Health PT. Plan for next treatment: IRF, BID, CW, FWW progressive gait with AFO, skin check, bed mobil ity and transfer training. Electronically signed by: ABI DE DIOS PT, 07/11/2016 16:45 lan of Care - Abi De Dios PT - 07/11/2016 4:37 PM PDTProblem: Patient Care Overview (Adult) Goal: Care Team Goals & Evaluation PROBLEM-RELATED GOALS: 1. Pt will tolerate general diet and thin liquids with no s/s of airway compromise by 07/14. 2. Pt will be modified independent with ambulation in hallway by 07/14/16. 3. Pt will report a pain level of 1/10 on a pain scale by 07/12/16. 4. Pt will have no s/s of infection by 07/14/16. 5. Mr. Aleman will meet 75% of predicted incentive spirometer goal of 2100 by 07/14/16. 6. Pt will eat >75% of meals by 07/14/16 STRATEGY TO ACHIEVE GOALS: 1. Pt will participate in ST -Pt will participate in all PT activities. -assess pain level throiugh the day and provide PRN pain medications. Encouraged frequent p osition changes for comfort. - monitor VS and lab results and notify MD as need it. Instruct patient in the use of Incentive Spirometry and/or deep breath and cough. Nursing a nd Respiratory to work together to have patient use every hour while awake. Respiratory to m onitor progress 4 times daily until 75% goal met then turn over to nursing. Will f/u to adjust food and fluids to pt preferences/tolerances and provide nutritional sup plements RESTRAINT-RELATED GOALS: STRATEGIES TO ACHIEVE RESTRAINT GOALS: Outcome: Improving Physical Therapy Daily Treatment Note Patient Information Patient Name: Kevin Alemna . Date of : 1945 Age: 70 y.o. Precautions/Limitations: falls, spinal, orthotic/bracing, corrective lenses, swallowing History of Presenting Problem: back and right hip pain. Pt is now s/p L2-4 LAIF; L4-L5 TLI F; L2-L5 posterior instrumentation. PT Diagnosis: Impaired mobility Start Time: 946 Stop time: 1031 Time Calculation: 45 minutes Missed Treatment Time: 0 minutes Total Treatment Time: 45 minutes TimedTreatment Code Minutes: 45 minutes Subjective: Received pt resting in bed and agreeable to work with PT. Pt c/o that he feels that he's not getting enough sleep and felt tired when he wakes up in the morning. Objective: Treatment Provided: Blocked practice on bed mobility and bed <--> w/c transfer (pt not wea ring AFO). No LOB noted but still required cuing for hand placement and lumbar precautions. Gait training with FWW x 100' SBA with verbal cues for inc.hip/knee flex on (R) to improve toe clearance. See below for details. Education: Safe transfers. Patient Status/Goals: Reflects last filed data of patient status; may be from multiple contributors. Gait max cuing for inc.hip/knee flex.on (R) to improve toe clearance Level of [place] : verbal cues required, supervision required Assistive Device: 2 wheeled walker (FWW) Distance (feet): 100' Gait Pattern Analysis: 2-point gait Gait Deviations: hiram decreased, double stance time increased, [id number] clearance de creased, weight-shifting ability decreased, step length decreased, stride length decreased, limb motion velocity decreased Transfers blocked practice , verbal cues to push from chair to stand. Bed-Chair, Level of [place]: supervision required, verbal cues required Chair-Bed, Level of [place]: supervision required, verbal cues required [id number], Assistive Device: 2 wheeled walker (FWW) Sit-Stand, Level of [place]: supervision required, verbal cues required Stand-Sit, Level of [place]: set up required, supervision required [id number], Assistive Device: 2 wheeled walker (FWW) Safety Issues: step length decreased Impairments: pain, decreased flexibility, strength decreased, impaired balance, muscle tone abnormal Bed Mobility blocked practice for Assistive Device: bed rails Roll Left, Level of [place]: supervision required, verbal cues required Supine to Sit, Level of [place]: supervision required, verbal cues required Sit to Supine, Level of [place]: supervision required, verbal cues required Safety Issues: decreased use of legs for bridging/pushing, cognitive deficits limit underst anding Impairments: pain, decreased flexibility, strength decreased STG GOALS Bed Mobility Goal, Activity Type: roll left/roll right, scoot/bridge, supine to sit/sit to supine [place] Level: modified independence Assistive Device: none Time to Achieve: 2 - 3 days Goal Status: progressing toward goal Transfer Training Goal, Activity Type: bed to chair /chair to bed, sit to stand/stand to si t [place] Level: modified independence Assistive Device: 2 wheeled walker (FWW) Time to Achieve: 2 - 3 days Goal Status: progressing toward goal Gait Training Goal, [place] Level: contact guard assist Assistive Device: 2 wheeled walker (FWW) Distance: 150 feet Time to Achieve: 2 - 3 days Goal Status: progressing toward goal Stairs Goal, [place] Level: contact guard assist Assistive Device: (Handrails) Number of Stairs: 12 Time to Achieve: 2 - 3 days Goal Status: progressing toward goal LTG GOALS Bed Mobility Goal, Activity Type: roll left/roll right, scoot/bridge, supine to sit/sit to supine [place] Level: independent Assistive Device: none Time to Achieve: 1 wk Goal Status: progressing toward goal Transfer Training Goal, Activity Type: bed to chair /chair to bed, sit to stand/stand to si t [place] Level: modified independence Assistive Device: 2 wheeled walker (FWW) Time to Achieve: 1 wk Goal Status: progressing toward goal Gait Training Goal, [place] Level: modified independence Assistive Device: 2 wheeled walker (FWW) Distance: 300 feet Time to Achieve: 1 wk Goal Status: progressing toward goal Number of Stairs: 16 Time to Achieve: 1 wk Goal Status: continued FIM: FIM Transfers Bed/Chair/Wheelchair: 5 Bed/Chair/WC Score Evidence: 5 Safety Supervision, 5 Verbal Cues FIM Locomotion Walk: 2 Distance Walked (feet): 100 feet Walk Score Evidence: 2 Pt 25-49% Effort/50-149ft FIM Modifier DC Locomotion: walk FIM Modifier Walk Distance: 2 50-149 feet Stairs: 0 Stairs Score Evidence: 0 Did Not Occur Assessment: Pt is supervised in his mobility and required verbal cues to main lumbar precau tions and for safe tranfers d/t impaired memory. Pt non compliant with his spinal precauti ons. Endurance is low d/t c/o not getting enough/unable to sleep. Pt demonstrates dec.toe c learance during swing phase and will benefit from a DF assist added to his AFO. P Cont. PT t o improve independence in functional mobility and dec.fall risk. Physical Therapy Anticipated Discharge Needs are: home with assist, home with home health Have the anticipated discharge needs changed? no Post discharge physical therapy recommendation: Home health PT Plan for next treatment: IRF, BID, CW, FWW progressive gait with AFO, skin check, bed mobil ity and transfer training. Electronically signed by: ABI DE DIOS, PT, 07/11/2016 16:19 lan of Care - Dayami Elizabeth, Speech Pathologist - 07/11/2016 3:02 PM PDT Problem: Patient Care Overview (Adult) Goal: Care Team Goals & Evaluation PROBLEM-RELATED GOALS: 1. Pt will tolerate general diet and thin liquids with no s/s of airway compromise by 07/14. 2. Pt will be modified independent with ambulation in hallway by 07/14/16. 3. Pt will report a pain level of 1/10 on a pain scale by 07/12/16. 4. Pt will have no s/s of infection by 07/14/16. 5. Mr. Aleman will meet 75% of predicted incentive spirometer goal of 2100 by 07/14/16. 6. Pt will eat >75% of meals by 07/14/16 STRATEGY TO ACHIEVE GOALS: 1. Pt will participate in ST -Pt will participate in all PT activities. -assess pain level throiugh the day and provide PRN pain medications. Encouraged frequent p osition changes for comfort. - monitor VS and lab results and notify MD as need it. Instruct patient in the use of Incentive Spirometry and/or deep breath and cough. Nursing a nd Respiratory to work together to have patient use every hour while awake. Respiratory to m onitor progress 4 times daily until 75% goal met then turn over to nursing. Will f/u to adjust food and fluids to pt preferences/tolerances and provide nutritional sup plements RESTRAINT-RELATED GOALS: STRATEGIES TO ACHIEVE RESTRAINT GOALS: Speech Therapy IRF Treatment Note Patient Information Patient Name: Kevin Aleman Sr. Date of : 1945 Age: 70 y.o. Summary: Pt seen for session upright in bed with present. GLORIA Enrique in place. UNDERWEAR TRIMMER observed the pt take bites of chips with no overt s/sx of airway compromise. He reported delfino t he also tolerated the cheese sandwich with no difficulty or pain when he swallowed. He als o tolerated thin liquids by straw with no overt s/sx of airway compromise. Cognistat complet ed today. See results below. 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 Pt stated he is having a difficult time remembering his back precaut ions. UNDERWEAR TRIMMER to target recall of back precautions to improve safety. Pt says that he is still r equiring cueing when mobilizing to adhere to back precautions. Cognistat Date: 07/11/2016 Subtest Severity Notes/Description Orientation WNL Attention WNL Passed screener Speech Sample Mild deficits Lacked insight, lacked details Comprehension WNL Passed screener Repetition WNL Passed screener Naming WNL Passed screener Constructional Ability Moderate deficits 2/6 Memory Mild deficits 8/12 Calculations WNL Passed screener Reasoning WNL Passed screener Judgment WNL Passed screener Speech language pathology will follow Kevin Aleman Sr. 3 times/wk until discharge from therapy or discharged from the hospital. Speech Language Pathology Anticipated Discharge Needs are: home with family/caregiver Post discharge speech language pathology recommendation: continue UNDERWEAR TRIMMER tx for dysphagia Identified Problems Needing Skilled Intervention: Mild pharyngeal dysphagia Planned Interventions: diet texture modification, compensatory strategies Patient Status/Goals Reflects last filed data of patient status; may be from multiple contributors. FIM FIM Communication Comprehension - Auditory: 6 Comprehension - Visual: 6 Comprehension Score Evidence: 6 Needs Extra Time, 6 Uses Glasses Expression - Vocal: 6 Expression - Non Vocal: 6 Expression Score Evidence: 6 Extra Time FIM Social/Cognition Social Interaction: 6 Social Interaction Score Evidence: 6 Extra Time, 6 Meds For Control (taking daily celexa) Problem Solvin Problem Solving Score Evidence: 5 Daily Prbs 91-99%, 6 Extra Time (requiring cues on precau tions) Memory: 5 Memory Score Evidence: 6 Extra Time, 5 Recalls 91-99%, 5 Cues During Stress (requires cues w precautions) NOMS (National Outcome Measures-Standardized) FCM/NOMS Swallowin/CJ PO w/min diet rest, min cues Swallow Recommendations Recommended Solid Texture: dysphagia advanced Recommended Liquid Texture: thin liquids Recommended Medication Delivery: whole pills with thin liquids, crushed pills with puree, i f able Recommended Feeding/Eating Techniques: alternate between small bites and sips of food/liqui d, check mouth frequently for oral residue/pocketing, oral care before and after each meal, maintain upright posture during/after eating for 30 mins, slow rate STG Goals Cognition Goal: Pt will recall back precautions verbally with visual aid for assistance to improve safety over three consecutive sessions. Time to Achieve Goals: 2 - 3 days Goal Status: new Dysphagia Goal: Pt will tolerate level 3 dysphagia advanced diet and thin liquids with no s /s of airway compromise by 07/08/16. Time to Achieve Goals: 2 days Goal Status: continued LTG Goals Cognition Goal: Pt will recall back precautions to 100% accuracy indep to imrprove safety w ith mobilizing. Time to Achieve Goals: 2 - 3 days Goal Status: new Start Time: 1410 Stop time: 1440 Time Calculation: 30 minutes Missed Treatment Time: 0 minutes Total Treatment Time: 30 minutes TimedTreatment Code Minutes: 0 minutes Plan for next treatment: Dysphagia Electronically signed by: Dayami Anthony, SPEECH PATHO, 07/11/2016 15:01 lan of Care - Mellissa Cantu OT - 07/11/2016 2:38 PM PDTProblem: Patient Care Over view (Adult) Goal: Care Team Goals & Evaluation PROBLEM-RELATED GOALS: 1. Pt will tolerate general diet and thin liquids with no s/s of airway compromise by 07/14. 2. Pt will be modified independent with ambulation in hallway by 07/14/16. 3. Pt will report a pain level of 1/10 on a pain scale by 07/12/16. 4. Pt will have no s/s of infection by 07/14/16. 5. Mr. Aleman will meet 75% of predicted incentive spirometer goal of 2100 by 07/14/16. 6. Pt will eat >75% of meals by 07/14/16 STRATEGY TO ACHIEVE GOALS: 1. Pt will participate in ST -Pt will participate in all PT activities. -assess pain level throiugh the day and provide PRN pain medications. Encouraged frequent p osition changes for comfort. - monitor VS and lab results and notify MD as need it. Instruct patient in the use of Incentive Spirometry and/or deep breath and cough. Nursing a nd Respiratory to work together to have patient use every hour while awake. Respiratory to m onitor progress 4 times daily until 75% goal met then turn over to nursing. Will f/u to adjust food and fluids to pt preferences/tolerances and provide nutritional sup plements RESTRAINT-RELATED GOALS: STRATEGIES TO ACHIEVE RESTRAINT GOALS: Outcome: Improving Occupational Therapy Daily Treatment Note Patient Information Patient Name: Kevin Aleman . Date of : 1945 Age: 70 y.o. Precautions/Limitations: falls, spinal, orthotic/bracing, corrective lenses, swallowing Start Time: 1302 Stop time: 1338 Time Calculation: 36 minutes Missed Treatment Time: 10 minutes Total Treatment Time: 36 minutes TimedTreatment Code Minutes: 36 minutes Frequency: daily Subjective: Tired but doing all right. Objective: Pt seen for UB dressing LSO mgmt, caregiver training. Pt's present and has had little training on pt's level of assistance, LSO education. Reviewed precautions w/ present. Pt had 5/5 precautions but 2 w/o full status, prompts to fully claify (i.e.5#, what to do @ 45 min, when brace can be off). Supine-sit w/ no cues and pt was SBA but w/ modified log- roll and moderate discomfort in back. Reviewed process and pt completed x 3 w/ improved siri elying and log-roll. Complete UB dressing and LSO mgmt, training provided to . pa rtially assisted in donning LSO w/ OT supervision and cues. Reviewed need for further train ing. Education: Spinal precautions, C-status bracing; safety Treatment Provided: Functional mobility; ADLs, safety awareness Patient Status/Goals Reflects last filed data of patient status; may be from multiple contributors. Assessment: Improved recall of spinal precautions. Initiated caregiver training w/ good in itial follow-through. Log-roll needs improvement for improved pain mgmt. Occupational Therapy Anticipated Discharge Needs are: home with home health Have the anticipated discharge needs changed? no Post discharge occupational therapy recommendation: TBD Plan for next treatment: 1P,JM,ADLs,precautions,safety,light meal prep Electronically signed by: Mellissa Cantu OT, 07/11/2016 14:33 lan of Care - F Artemio leiva LICSW - 07/11/2016 11:00 AM PDTProblem: Discharge Planning Goal: Patient will be discharged in a safe manner Outcome: Improving Visited with the patient his AM after physical therapy. The patient complains of being jae y tired and not sleeping very well. He, also, complains of significant groin and hip pain. He states that he would like to go home but does not feel that he is ready to do so. He st ates that he does not have any steps to get into the house and that there is a large walk in shower in his 's bathroom that he can use. He has a 2 wheeled walker at home that he w as using. He has a son who lives in [place] who is supportive but he is on the road a lot. He does have a couple of supportive neighbors who can assist him as needed. The patient i s on oxygen here but was not on it at home. This case finisher will continue to follow the p atient while he is in the inpatient rehab program.Electronically signed by: KESHAV Brown 07/11/2016 11:00 atient Car e Conference - Eduard Young MD - 07/11/2016 10:42 AM PDTFormatting of this note migh t be different from the original. [facility] Inpatient Rehabilitation Facility Individualized Overall Plan of Care Weekly Team Conference Patient Identification Kevin Aleman Sr. is a 70 y.o. male. : 1945 Admit Date: 07/06/2016 Attending Provider: Eduard Young MD Primary Care Physician: Almas Licea Admitting Diagnosis: lumbar spondylolisthesis , s/p fusion L2-5 Team Conference Date: 07/12/2016 Medical Prognosis and need for Rehabilitation Physician oversight and anticipated Rehabilit ation Physician interventions: [place] for functional progress is good. Physician Summary: Mr. Aleman is a 70 year-old right-handed [...] doing well with therapies #Rehabilitation Medicine Recommendations: --Continue PT for strength, endurance, ROM, ambulation, balance --Continue OT for UE strengthening, functioning, and ROM; and training in ADLs, IADLs --Continue Speech therapy (UNDERWEAR TRIMMER) to follow for for cognitive/communication evaluation, Had b arium esophagram evidence of achalasia #SOB - new right basilar opacity, hospitalist team assisting PNA vs atelectasis. Also with desaturations when sleeping. Wheezing seems more upper respiratory as lungs sound clear -day 5 of 5 clindamycin for possible aspiration PNA -Continue ISS minimum qshift -Encourage patient to cough when wheezing if upper respiratory this should help to clear -Will do overnight oxemitry prior to d/c and recommend outpatient s leep study #L2-5 anterior and posterior fusion - Stable hardware on XR after fall -Continue PRN oxycodone -C-brace precautions #Stroke 11 years ago presumably left MCA [...] baclofen 10mg BID, with up-titration to 10mg TI D early next week -Continue Atorvastatin 40mg daily -Continue baclofen 10mg TID -Continue tizanidine 4mg qhs -Continue losartan 50mg daily -Continue warfarin, INR 1.41 today -LMWH until therapeutic #rash on groin and face with satellite lesions - improving, patient reports this is long st anding and he has seen multiple dermatologists for this so may not be fungal as initially th ought -Nystatin powder for groin -trial powder for lip, but if no improvement will trial steroid cre am or ketoconazole. #Fall - on 07/09occurred this afternoon, patient had multiple falls at home which is why we admitted him. Unfortunately the fall was unwitnessed and he was on the ground for some ti me so the etiology is not clear. The fall occurred after he fell out of bed, there was no bed alarm on. Exam reassuring today. -STAT CT head - no acute changes -XR L-spine - no hardware changes, stable -bed alarm on at all times, if patient continues to be impulsive wi ll consider a sitter #Achalasia - found of barium esophagram along with a small hiatal hernia, explains his subs ternal pain with eating -Referral to outpatient GI on discharge #Retroperotineal fibrosis - stable. -Continue Cellcept 500mg qday for now and will get clarification fo r PCP on why he is taking it. #History of depression - stable -Continue citalopram 40mg daily #Hypokalemia - resolved -Continue potassium chloride 20meq BID #Malnutrition - low albumin and protein -Nutrition consulted to assist Code Status: Full Code Rehabilitation Nursing Summary: Pt continues to be alert and oriented x 4 and has been awa ling out appropriately more often than not. He continues to need cueing with lumbar percauti ons and is compliant with his C bracing. Pt is a silent aspirator so is being given po only when upright and pills are given with applesauce. He reports pain is aching to the lower paula k and posterior thighs but it is tolerable with use of oxycodone. Incisions to flank are ope n to air, and back incisions are covered with bandaids that are clean, dry and intact. He co ntinues to have urgency but is having an easier time with using the urinal. He is having reg ular BM's with use of PRN laxatives. Safety Management: Elopement/wander risk: No General Risk Interventions: Cognitive Impairment Interventions: Altered Eliminations/Toileting interventions: Safety Management Goal: Pt will remain free of falls during stay in inpatient rehab. Pain Management: Pain ratin-6/10 Pain Management Goal: Pt will report pain < 4/10 Skin Management: Lb Score: 19 Skin Management Goal: No s/s infection will develop to surgical sites and no new skin break down will occur. Bladder Management: FIM BladderScore: 5; Evidence: 5 Nursing Empties # Bladder accidents last 7 days: 1 Bladder Management Goal: Pt will remain continent of urine without accidents. Bowel Management: FIM Bowel Score: 6; Evidence: 6 Medication [place] # Bowel accidents last 7 days: 3 Bowel Management Goal: Pt will have a BM at least every other day Nutrition Management: Pt is eating 50-80% of a dysphagia advanced diet. Intake improving but still marginal for meeting his assessed energy and protein needs. He agrees to [place] supplements tid. Fluid intake for the past 2 days has ranged between 1090-950 mL each day. Will continue to f/u to adjust food/supplements pt suit him. Would suggest weekly weights, his UBW ranges be tween 138-148 lbs. Mobility Summary: Pt is supervised in his mobility and required verbal cues to main lumb ar precautions and for safe tranfers d/t impaired memory. Pt non compliant with his spin al precautions. Endurance is low d/t c/o not getting enough/unable to sleep. Pt demonstrat es dec.toe clearance during swing phase and will benefit from a DF assist added to his AFO. P Cont. PT to improve independence in functional mobility and dec.fall risk. Transfers FIM Bed/Chair/Wheelchair Score: 5; Evidence:5 Safety Supervision, 5 Verbal Cues FIM Toilet Transfer Score: 5; Evidence: 5 Verbal Cues, 5 Safety Supervision FIM Tub/Shower Transfer Score: 5; Evidence: 5 Verbal Cues, 5 Safety Supervision Locomotion FIM Walk Score: 2; Evidence: 2 Pt 25-49% Effort/50-149ft FIM Distance Walked(feet): 100 feet FIM Wheelchair Score: ; Evidence: FIM Stairs Score :0; Evidence: 0 Did Not Occur PT GOALS Short Term Goals PT Short Term Goals: bed mobility, transfers, gait, stairs Bed Mobility Goal, Activity Type: roll left/roll right, scoot/bridge, supine to sit/sit to supine [place] Level: modified independence Assistive Device: none Time to Achieve: 2 - 3 days Goal Status: progressing toward goal Transfer Training Goal, Activity Type: bed to chair /chair to bed, sit to stand/stand to si t [place] Level: modified independence Assistive Device: 2 wheeled walker (FWW) Time to Achieve: 2 - 3 days Goal Status: progressing toward goal Gait Training Goal, [place] Level: contact guard assist Assistive Device: 2 wheeled walker (FWW) Distance: 150 feet Time to Achieve: 2 - 3 days Goal Status: progressing toward goal Stairs Goal, [place] Level: contact guard assist Assistive Device: (Handrails) Number of Stairs: 12 Time to Achieve: 2 - 3 days Goal Status: progressing toward goal Fci Goals PT Fci Goals: bed mobility, transfers, gait, stairs Bed Mobility Goal, Activity Type: roll left/roll right, scoot/bridge, supine to sit/sit to supine [place] Level: independent Assistive Device: none Time to Achieve: 1 wk Goal Status: progressing toward goal Transfer Training Goal, Activity Type: bed to chair /chair to bed, sit to stand/stand to si t [place] Level: modified independence Assistive Device: 2 wheeled walker (FWW) Time to Achieve: 1 wk Goal Status: progressing toward goal Gait Training Goal, [place] Level: modified independence Assistive Device: 2 wheeled walker (FWW) Distance: 300 feet Time to Achieve: 1 wk Goal Status: progressing toward goal Number of Stairs: 16 Time to Achieve: 1 wk Goal Status: continued Self Care Summary: Pt working with OT on ADL tasks with maintaining spinal precautions duri ng functional mobility. Pt continues to need some VC's for precautions with activity, mainl y during shower. Pt struggles with pain/mm spasms management. He is progressing with OT go als. Barrier to D/C Pain; need for contined /caregiver training; C-Bracing status; imp airment in full recall of spinal precautions. /caregiver training initiated- completed UB dressing, LSO mgmt. participated in assisting donning of LSO FIM Eating Score: 6; Evidence: FIM Grooming Score: 5; Evidence: 5 Verbal Cues, 5 Safety Supervison FIM Bathing Score: 5; Evidence: 5 Safety Supervison, 5 Verbal Cues FIM Dressing Upper Body Score: 5; Evidence:5 Get Clothing, 5 Verbal Cues, 5 Safety Superv ision FIM Dressing Lower Body Score: 4; Evidence:On/Off L Pant Leg, 5 Apply MARINA, 6 Slubber Hand, 6 Sock Aid FIM Toileting Score: 5; Evidence:5 Verbal Cues, 5 Safety Supervision OT Goals Short Term Goals OT Short Term Goals: IADL Transfer Training Goal, Activity Type: toilet [place] Level: minimum assist (75% patient effort) Assistive Device: 2 wheeled walker (FWW) Time to Achieve: 5 - 7 days Goal Status: met Grooming Goal, [place] Level: set up required, verbal cues required Adaptive Equipment: none Position: sitting in chair Time to Achieve: 2 - 3 days Goal Status: met Bathing Goal, [place] Level: minimum assist (75% patient effort) Adaptive Equpiment: grab bars, scrub brush, shower chair Time to Achieve: 5 - 7 days Goal Status: met Toileting Goal, [place] Level: minimum assist (75% patient effort), verbal cues requir ed Assistive Device: toilet paper aid Time to Achieve: 5 - 7 days Goal Status: met UB Dressing Goal, [place] Level: minimum assist (75% patient effort), verbal cues requ ired Adaptive Equipment: none Time to Achieve: 5 - 7 days Goal Status: met LB Dressing Goal, [place] Level: moderate assist (50% patient effort) Adaptive Equipment: transmitter engineer in charge, dressing stick, shoe horn, long handled Time to Achieve: 5 - 7 days Goal Status: met IADL Goal: LIght snack/meal prep w/ supervision. Time to Achieve: 5 - 7 days Goal Status: continued Slag Expander Goals OT Slag Expander Goals: IADL Transfer Training Goal, Activity Type: walk-in shower, toilet [place] Level: contact guard assist Assistive Device: 2 wheeled walker (FWW), grab bars Time to Achieve: 5 - 7 days Goal Status: progressing toward goal Grooming Goal, [place] Level: set up required Adaptive Equipment: none Position: sitting in chair Time to Achieve: 5 - 7 days Goal Status: met Bathing Goal, [place] Level: set up required, verbal cues required Adaptive Equpiment: grab bars, scrub brush Time to Achieve: 5 - 7 days Goal Status: met Toileting Goal, [place] Level: supervision required Assistive Device: none Time to Achieve: 5 - 7 days Goal Status: met UB Dressing Goal, [place] Level: set up required Adaptive Equipment: none Time to Achieve: 5 - 7 days Goal Status: met LB Dressing Goal, [place] Level: verbal cues required, set up required Adaptive Equipment: transmitter engineer in charge, laces, elastic, shoe horn, long handled, sock-aid Time to Achieve: 5 - 7 days Goal Status: progressing toward goal IADL Goal: Pt will prepare light snack w/ mod I. Time to Achieve: 1 wk Goal Status: continued Cognition/Communication Summary: Mild deficits noted. UNDERWEAR TRIMMER to target recall of back precauti ons with use of spaced retrieval techniques. Cognistat Date: 07/11/2016 Subtest Severity Notes/Description Orientation WNL Attention WNL Passed screener Speech Sample Mild deficits Lacked insight, lacked details Comprehension WNL Passed screener Repetition WNL Passed screener Naming WNL Passed screener Constructional Ability Moderate deficits 2/6 Memory Mild deficits 8/12 Calculations WNL Passed screener Reasoning WNL Passed screener Judgment WNL Passed screener Problem Solving Score: 5; Evidence: 5 Daily Prbs 91-99% Memory Score: 5; Evidence: 5 Recalls 91-99% Comprehension/AuditoryScore: 6; Evidence: 6 Uses Glasses Verbal Expression Score: 6; Evidence: 6 Extra Time Social Interaction Score: 6; Evidence:6 Extra Time Dysphagia/Swallow: Tolerating advanced textures. Barium esophagram shows achalasia and h iatal hernia. Pt has intermittent pain on swallow in mid chest. Will trial regular textures as UNDERWEAR TRIMMER observed him tolerate these textures today with no difficulty. UNDERWEAR TRIMMER Goals Short Term Goals UNDERWEAR TRIMMER Short Term Goals: cognition Cognition Goal: Pt will recall back precautions verbally with visual aid for assistance to improve safety over three consecutive sessions. Time to Achieve Goals: 2 - 3 days Goal Status: new Dysphagia Goal: Pt will tolerate level 3 dysphagia advanced diet and thin liquids with no s /s of airway compromise by 07/08/16. Time to Achieve Goals: 2 days Goal Status: continued Slag Expander Goals UNDERWEAR TRIMMER Fci Goals: cognition Cognition Goal: Pt will recall back precautions to 100% accuracy indep to imrprove safety w ith mobilizing. Time to Achieve Goals: 2 - 3 days Goal Status: new Leisure/Community: Therapeutic day pass appropriate: yes Education Caregiver training initiated: No Sexuality education initiated: No Other education initiated (see Patient Education activity): yes Recommended Discharge Equipment 2 wheeled walker (FWW), 2 wheeled walker (FWW), shower chair, hand held shower head, reach er, sock aide, long handled shoe horn, long handled sponge, commode (3 in 1) Barriers to Discharge Barriers to Discharge: Not following precautions, pain Barrier Resolution Plan: Continued therapy and education on precautions, pain sufficiently controlled for home environment. Post-Discharge Plan Setting: Home with his in [place], [place] Level of Assist Recommended for Discharge: Modified independent to standby assist for mob ility and transfers, standby to minimal assist for ADLs Anticipate post discharge services: Home health therapy, handicap parking sticker Prosthetics/Orthotics therapeutic interventions recommended: Added DF assist to AFO Admission Date: 07/06/2016 ELOS: 10 days Projected DC Date: 07/16/16 Team Goals: 1. Mod I mobility 2. Mod I ADLs 3. Mod I transfers 4. Improved spasticity management 5. Improved pain control Participants: MD: Eduard Young MD RN: EMMANUEL Garcia PT: Abi De Dios PT OT: CHEMO Alarcon/Wilver; Mellissa Cantu OTR/L UNDERWEAR TRIMMER: Inocencia Anthony MS, CCC-UNDERWEAR TRIMMER CM/SW: KESHAV Crockett Following interdisciplinary discussion and planning, I fully agree with the above. lan of Care - Nicolle Mendez COTA - 07/11/2016 10:37 AM PDTProblem: Patient Care Overview (Adult) Goal: Care Team Goals & Evaluation PROBLEM-RELATED GOALS: 1. Pt will tolerate general diet and thin liquids with no s/s of airway compromise by 07/14. 2. Pt will be modified independent with ambulation in hallway by 07/14/16. 3. Pt will report a pain level of 1/10 on a pain scale by 07/12/16. 4. Pt will have no s/s of infection by 07/14/16. 5. Mr. Aleman will meet 75% of predicted incentive spirometer goal of 2100 by 07/14/16. 6. Pt will eat >75% of meals by 07/14/16 STRATEGY TO ACHIEVE GOALS: 1. Pt will participate in ST -Pt will participate in all PT activities. -assess pain level throiugh the day and provide PRN pain medications. Encouraged frequent p osition changes for comfort. - monitor VS and lab results and notify MD as need it. Instruct patient in the use of Incentive Spirometry and/or deep breath and cough. Nursing a nd Respiratory to work together to have patient use every hour while awake. Respiratory to m onitor progress 4 times daily until 75% goal met then turn over to nursing. Will f/u to adjust food and fluids to pt preferences/tolerances and provide nutritional sup plements RESTRAINT-RELATED GOALS: STRATEGIES TO ACHIEVE RESTRAINT GOALS: Outcome: Improving Occupational Therapy Daily Treatment Note Patient Information Patient Name: Kevin Aleman . Date of : 1945 Age: 70 y.o. 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 Patient Status/Goals Reflects last filed data of patient status; may be from multiple contributors. ADLs shower Bathing, Level of [place]: verbal cues required, supervision required Assistive Device: grab bars, hand-held shower head, long-handled sponge Bathing Assess/Train, Position: sitting Bathing Assess/Train, Impairments: ROM decreased, strength decreased, pain seated UB Dressing, Level of [place]: set up required, verbal cues required Assistive Device: none UB Dressing Assess/Train, Position: sitting . LB, Level of [place]: minimum assist (75% patient effort), verbal cues required, set u p required Assistive Device: transmitter engineer in charge, long-handled shoe horn, sock-aid LB Dressing Assess/Train, Position: sitting, supported standing LB Dressing Assess/Train, Impairments: decreased flexibility, ROM decreased, strength decre ased, pain Toileting, Level of [place]: verbal cues required, supervision required Assistive Device: grab bar Toileting Assess/Train, Position: sitting, supported sitting Toileting Assess/Train, Impairments: decreased flexibility, ROM decreased, strength decreas ed, pain . Grooming, Level of [place]: set up required, verbal cues required Assistive Device: none Grooming Assess/Train, Position: supported standing Grooming Assess/Train, Impairments: strength decreased, pain Transfers Toilet, Level of [place]: verbal cues required, set up required Toilet, Assistive Device: 2 wheeled walker (FWW), seat riser ((comode over toilet)) Walk-In Shower, Level of [place]: verbal cues required, set up required Walk-in shower, Assistive Device: 2 wheeled walker (FWW), grab bars, shower chair Safety Issues: balance decreased during turns Impairments: decreased flexibility, ROM decreased, strength decreased, impaired balance, mo tor control impaired, pain STG Goals Transfer Training Goal, Activity Type: toilet [place] Level: minimum assist (75% patient effort) Assistive Device: 2 wheeled walker (FWW) Time to Achieve: 5 - 7 days Goal Status: met Grooming Goal, [place] Level: set up required, verbal cues required Adaptive Equipment: none Position: sitting in chair Time to Achieve: 2 - 3 days Goal Status: met Bathing Goal, [place] Level: minimum assist (75% patient effort) Adaptive Equpiment: grab bars, scrub brush, shower chair Time to Achieve: 5 - 7 days Goal Status: met Toileting Goal, [place] Level: minimum assist (75% patient effort), verbal cues requir ed Assistive Device: toilet paper aid Time to Achieve: 5 - 7 days Goal Status: met UB Dressing Goal, [place] Level: minimum assist (75% patient effort), verbal cues requ ired Adaptive Equipment: none Time to Achieve: 5 - 7 days Goal Status: met LB Dressing Goal, [place] Level: moderate assist (50% patient effort) Adaptive Equipment: transmitter engineer in charge, dressing stick, shoe horn, long handled Time to Achieve: 5 - 7 days Goal Status: met IADL Goal: LIght snack/meal prep w/ supervision. Time to Achieve: 5 - 7 days Goal Status: continued LTG Goals Transfer Training Goal, Activity Type: walk-in shower, toilet [place] Level: contact guard assist Assistive Device: 2 wheeled walker (FWW), grab bars Time to Achieve: 5 - 7 days Goal Status: progressing toward goal Grooming Goal, [place] Level: set up required Adaptive Equipment: none Position: sitting in chair Time to Achieve: 5 - 7 days Goal Status: met Bathing Goal, [place] Level: set up required, verbal cues required Adaptive Equpiment: grab bars, scrub brush Time to Achieve: 5 - 7 days Goal Status: met Toileting Goal, [place] Level: supervision required Assistive Device: none Time to Achieve: 5 - 7 days Goal Status: met UB Dressing Goal, [place] Level: set up required Adaptive Equipment: none Time to Achieve: 5 - 7 days Goal Status: met LB Dressing Goal, [place] Level: verbal cues required, set up required Adaptive Equipment: transmitter engineer in charge, laces, elastic, shoe horn, long handled, sock-aid Time to Achieve: 5 - 7 days Goal Status: progressing toward goal IADL Goal: Pt will prepare light snack w/ mod I. Time to Achieve: 1 wk Goal Status: continued FIM: FIM Transfers Toilet: 5 Toilet Transfer Evidence: 5 Verbal Cues, 5 Safety Supervision Tub / Shower: 5 Tub/Shower Score Evidence: 5 Verbal Cues, 5 Safety Supervision FIM Self Care Groomin Grooming Score Evidence: 5 Verbal Cues, 5 Safety Supervison Bathin Bathing Score Evidence: 5 Safety Supervison, 5 Verbal Cues Dressing - Upper Body: 5 Dressing Upper Score Evidence: 5 Get Clothing, 5 Verbal Cues, 5 Safety Supervision Dressing - Lower Body: 4 Dressing Lower Score Evidence: On/Off L Pant Leg, 5 Apply MARINA, 6 Slubber Hand, 6 Sock Aid Toiletin Toileting Score Evidence: 5 Verbal Cues, 5 Safety Supervision Assessment: Pt feeling better this AM, still needing VC for step through with R LE with amb ulating t/from shower room using FWW. VC to remain seated during shower with LSO off. PT o n 1 LPM of O2 during shower. Occupational Therapy Anticipated Discharge Needs are: home with home health Have the anticipated discharge needs changed? no Post discharge occupational therapy recommendation: TBD Plan for next treatment: 1P, DV light meal prep, complete shaving? Electronically signed by: CHEMO Ivy, 07/11/2016 10:31 lan of Care - Filippo Ochoa RN - 07/11/2016 3:22 AM PDTProblem: Patient Care Overview (Adult) Goal: Care Team Goals & Evaluation PROBLEM-RELATED GOALS: 1. Pt will tolerate general diet and thin liquids with no s/s of airway compromise by 07/14. 2. Pt will be modified independent with ambulation in hallway by 07/14/16. 3. Pt will report a pain level of 1/10 on a pain scale by 07/12/16. 4. Pt will have no s/s of infection by 07/14/16. 5. Mr. Aleman will meet 75% of predicted incentive spirometer goal of 2100 by 07/14/16. 6. Pt will eat >75% of meals by 07/14/16 STRATEGY TO ACHIEVE GOALS: 1. Pt will participate in ST -Pt will participate in all PT activities. -assess pain level throiugh the day and provide PRN pain medications. Encouraged frequent p osition changes for comfort. - monitor VS and lab results and notify MD as need it. Instruct patient in the use of Incentive Spirometry and/or deep breath and cough. Nursing a nd Respiratory to work together to have patient use every hour while awake. Respiratory to m onitor progress 4 times daily until 75% goal met then turn over to nursing. Will f/u to adjust food and fluids to pt preferences/tolerances and provide nutritional sup plements RESTRAINT-RELATED GOALS: STRATEGIES TO ACHIEVE RESTRAINT GOALS: Outcome: Improving Goal Evaluation: Patient alert, calm, and cooperative. Patient denied pain and/or nausea. Patient able to s leep most of the evening without incident. Incisions well approximated with no drainage or s igns of infection. Heart rate regular. Lungs clear and equal bilaterally. Bowel tones active in x 4 quads. Afebrile. Patient able to stand at bedside with FWW and utilize urinal. Patie nt called appropriately using call light. lan of Care - Holly polo SERVICES HOST - 07/10/2016 9:56 PM PDTProblem: Patient Care Overview (Adult) Goal: Care Team Goals & Evaluation PROBLEM-RELATED GOALS: 1. Pt will tolerate general diet and thin liquids with no s/s of airway compromise by 07/14. 2. Pt will be modified independent with ambulation in hallway by 07/14/16. 3. Pt will report a pain level of 1/10 on a pain scale by 07/12/16. 4. Pt will have no s/s of infection by 07/14/16. 5. Mr. Aleman will meet 75% of predicted incentive spirometer goal of 2100 by 07/14/16. 6. Pt will eat >75% of meals by 07/14/16 STRATEGY TO ACHIEVE GOALS: 1. Pt will participate in ST -Pt will participate in all PT activities. -assess pain level throiugh the day and provide PRN pain medications. Encouraged frequent p osition changes for comfort. - monitor VS and lab results and notify MD as need it. Instruct patient in the use of Incentive Spirometry and/or deep breath and cough. Nursing a nd Respiratory to work together to have patient use every hour while awake. Respiratory to m onitor progress 4 times daily until 75% goal met then turn over to nursing. Will f/u to adjust food and fluids to pt preferences/tolerances and provide nutritional sup plements RESTRAINT-RELATED GOALS: STRATEGIES TO ACHIEVE RESTRAINT GOALS: Goal Evaluation: Kevin is on .5 lpm cannula with SPO2 94%. His breath sounds appear. No PRN treatments this shift. He achieved 1300 ml of the 2150 ml goal on his incentive spirometer. lan of Care - Hallie Del Toro RN - 07/10/2016 6:52 PM PDTProblem: Patient Care Overview (Adult) Goal: Care Team Goals & Evaluation PROBLEM-RELATED GOALS: 1. Pt will tolerate general diet and thin liquids with no s/s of airway compromise by 07/14. 2. Pt will be modified independent with ambulation in hallway by 07/14/16. 3. Pt will report a pain level of 1/10 on a pain scale by 07/12/16. 4. Pt will have no s/s of infection by 07/14/16. 5. Mr. Aleman will meet 75% of predicted incentive spirometer goal of 2100 by 07/14/16. 6. Pt will eat >75% of meals by 07/14/16 STRATEGY TO ACHIEVE GOALS: 1. Pt will participate in ST -Pt will participate in all PT activities. -assess pain level throiugh the day and provide PRN pain medications. Encouraged frequent p osition changes for comfort. - monitor VS and lab results and notify MD as need it. Instruct patient in the use of Incentive Spirometry and/or deep breath and cough. Nursing a nd Respiratory to work together to have patient use every hour while awake. Respiratory to m onitor progress 4 times daily until 75% goal met then turn over to nursing. Will f/u to adjust food and fluids to pt preferences/tolerances and provide nutritional sup plements RESTRAINT-RELATED GOALS: STRATEGIES TO ACHIEVE RESTRAINT GOALS: Outcome: Improving Goal Evaluation: 1. Pt tolerating general diet, no coughing noted while swallowing. Taking rx w applesauce to ease swallowing. Sitting up in chair for all meals 2. Transferring and ambulating w fww+cga 3. C/o pain to lower back, taking prn oxycodone in the morning and evening, taking schedule d baclofen which helps w restless legs 4. Rash to nasolabial fold and groin, applying nystatin cream and nystatin powder, rash see ms to be improving 5. Encouraged to cough and deep breath, continues w exp wheezing, spo2>95%, on 0.5L/min oxy gen via nc. C/o sob only w exertion. 6. Eating 50%-80% most meals, encouragement required w most meals, drinking Boost supplemen ts w encouragement lan of Care - Mellissa Cantu, OT - 07/10/2016 5:10 PM PDTProblem: Patient Care Overview (Adult) Goal: Care Team Goals & Evaluation PROBLEM-RELATED GOALS: 1. Pt will tolerate level soft chopped foods and thin liquids with no s/s of airway comprom ise by 07/12/16. 2. Pt will be modified independent with ambulation in hallway by 07/12/16. 3. Pt will report a pain level of 1/10 on a pain scale by 07/12/16. 4. Pt will have no s/s of infection by 07/12/16. 5. Mr. Aleman will meet 75% of predicted incentive spirometer goal of 2100 by 07/09/16. 5. Pt will eat >75% of meals by July 12 STRATEGY TO ACHIEVE GOALS: 1. Pt will participate in ST -Pt will participate in all PT activities. -assess pain level throiugh the day and provide PRN pain medications. Encouraged frequent p osition changes for comfort. - monitor VS and lab results and notify MD as need it. Instruct patient in the use of Incentive Spirometry and/or deep breath and cough. Nursing a nd Respiratory to work together to have patient use every hour while awake. Respiratory to m onitor progress 4 times daily until 75% goal met then turn over to nursing. Will f/u to adjust food and fluids to pt preferences/tolerances and provide nutritional sup plements RESTRAINT-RELATED GOALS: STRATEGIES TO ACHIEVE RESTRAINT GOALS: Outcome: Improving Occupational Therapy Daily Treatment Note Patient Information Patient Name: Kevin Aleman . Date of : 1945 Age: 70 y.o. Precautions/Limitations: falls, spinal, orthotic/bracing, corrective lenses, swallowing Start Time: 1542 Stop time: 1643 Time Calculation: 61 minutes Missed Treatment Time: 10 minutes Total Treatment Time: 61 minutes TimedTreatment Code Minutes: 61 minutes Frequency: daily Subjective: Tired. Didn't have a good night. Hurts in groin to lift legs. Objective: Pt seen for light therex; functional mobility; light kitchen activity. See below for activ ity levels. Ambulated w/ SBA, intermittent verbal cuing to ensure a good swing-through on R LE. Noted on return to room following therapeutic activity, pt had increased toe drag and s hortened gait. Education: Safety; normalizing gait; kitchen activity safety Treatment Provided: Therapeutic activity; therex; safety awareness Patient Status/Goals Reflects last filed data of patient status; may be from multiple contributors. IADLs Sidestepping @ kitchen counter 4-5 steps R/L x 2. Shortened step on L when going to L w/ h ips increased in rotation. Retrieved coffee cup from cupboard, reviewed 2nd shelf as too hi gh and why. Carried cup in R hand x 2 steps w/ slight stumble but no LOB. Reviewed side-st epping and sliding cup for safety. Pt did so and completed the tasks w/o incident, SBA. Re turned cup to cupboard and replaced a dish to the 2nd shelf- reminded re too high. Meal Preparation/Planning Training, OT Eval Level Of [place]: Meal Prep: supervision/set-up Physical Assist/Nonphysical Assist: Meal Prep: supervision, verbal cues Assistive Device: rolling walker Therapeutic Exercise Standing @ UBE, minimal resistance, 2 sets x 2 min. Sci-Fit 1.5 min w/ U/LE, then 30 sec x 2 w/ LEs only. Seated rests in between. O2 sats 96-98% on 1 L. STG Goals IADL Goal: LIght snack/meal prep w/ supervision. Time to Achieve: 5 - 7 days Goal Status: new LTG Goals IADL Goal: Pt will prepare light snack w/ mod I. Time to Achieve: 1 wk Goal Status: new Assessment: Progressing, participatory. Light wheezing w/ the activity but O2 remained >90 % on 1L O2. Intermittent cues to maintain spinal precautions- not reaching overhead. Inter mittent cues for consistency in hand/FWW placement for transfers. Occupational Therapy Anticipated Discharge Needs are: home with home health Have the anticipated discharge needs changed? no Post discharge occupational therapy recommendation: TBD Plan for next treatment: Logan,JM.ADLs,fxl mobility Electronically signed by: Mellissa Cantu, OT, 07/10/2016 17:06 lan of Care - W Abi pickard, PT - 07/10/2016 5:02 PM PDTProblem: Patient Care Overview (Adult) Goal: Care Team Goals & Evaluation PROBLEM-RELATED GOALS: 1. Pt will tolerate level soft chopped foods and thin liquids with no s/s of airway comprom ise by 07/12/16. 2. Pt will be modified independent with ambulation in hallway by 07/12/16. 3. Pt will report a pain level of 1/10 on a pain scale by 07/12/16. 4. Pt will have no s/s of infection by 07/12/16. 5. Mr. Aleman will meet 75% of predicted incentive spirometer goal of 2100 by 07/09/16. 5. Pt will eat >75% of meals by July 12 STRATEGY TO ACHIEVE GOALS: 1. Pt will participate in ST -Pt will participate in all PT activities. -assess pain level throiugh the day and provide PRN pain medications. Encouraged frequent p osition changes for comfort. - monitor VS and lab results and notify MD as need it. Instruct patient in the use of Incentive Spirometry and/or deep breath and cough. Nursing a nd Respiratory to work together to have patient use every hour while awake. Respiratory to m onitor progress 4 times daily until 75% goal met then turn over to nursing. Will f/u to adjust food and fluids to pt preferences/tolerances and provide nutritional sup plements RESTRAINT-RELATED GOALS: STRATEGIES TO ACHIEVE RESTRAINT GOALS: Outcome: Improving Physical Therapy Daily Treatment Note Patient Information Patient Name: Kevin Aleman Sr. Date of : 1945 Age: 70 y.o. Precautions/Limitations: falls, spinal, orthotic/bracing, corrective lenses, swallowing History of Presenting Problem: back and right hip pain. Pt is now s/p L2-4 LAIF; L4-L5 TLI F; L2-L5 posterior instrumentation. PT Diagnosis: Impaired mobility Start Time: 1410 Stop time: 1520 Time Calculation: 70 minutes Missed Treatment Time: 0 minutes Total Treatment Time: 70 minutes TimedTreatment Code Minutes: 70 minutes Subjective: Received pt resting in bed and agreeable to work with PT. Adjusted LSO prior t o sitting. Objective: Treatment Provided: Pt was seen for bed mobility, transfers, gait and balance training to i nc.independnece and provided verbal cues for correct sequence and technique for safety. See below for details. Pt was left sitting in chair, chair alarm set and all needs within reac h. Education: Importance of mobility Patient Status/Goals: Reflects last filed data of patient status; may be from multiple contributors. Gait cues for inc.(R) hip flex during swing phase to inc.toe clearance. Level of [place] : verbal cues required, supervision required Assistive Device: 2 wheeled walker (FWW) Distance (feet): 80' Gait Pattern Analysis: 2-point gait Gait Deviations: [id number] clearance decreased, hiram decreased, double stance time in creased, limb motion velocity decreased, step length decreased, weight-shifting ability decr eased Stairs Number of Stairs: 4 Handrail Location: both sides Level of [place]: contact guard assist Assistive Device: (Handrails) Technique Used: step to step (ascending), step to step (descending) Safety Issues: balance decreased during turns (Right knee buckling on descent) Impairments: muscle tone abnormal, decreased flexibility, sensation decreased, strength dec reased, impaired balance, coordination impaired, motor control impaired, pain Transfers Bed-Chair, Level of [place]: supervision required, verbal cues required Chair-Bed, Level of [place]: supervision required, verbal cues required [id number], Assistive Device: 2 wheeled walker (FWW) Sit-Stand, Level of [place]: supervision required, verbal cues required Stand-Sit, Level of [place]: supervision required, verbal cues required [id number], Assistive Device: 2 wheeled walker (FWW) Safety Issues: weight-shifting ability decreased, loses balance backward Impairments: pain, decreased flexibility, impaired balance, strength decreased Bed Mobility max cuing for log roll Assistive Device: bed rails Roll Left, Level of [place]: supervision required, verbal cues required Supine to Sit, Level of [place]: supervision required, verbal cues required Sit to Supine, Level of [place]: not tested Safety Issues: decreased use of legs for bridging/pushing Impairments: pain, decreased flexibility, strength decreased, impaired balance Wheelchair Mobility Balance Sitting Balance: Static: good balance Sitting Balance: Dynamic: fair balance Standing Balance: Static: fair balance Standing Balance: Dynamic: fair balance TUG - Timed Up and Go Timed Up and Go Score (TUG): 70 seconds Therapeutic Exercise inc.pain on ant.thigh with hip flexion. Bed exercises: (LE Sustained stretching 5 x 30 seconds) Seated exercises: bilateral, ankle pumps, hip abduction/adduction, marching Repetitions: x 10 Standing exercises: sidestepping Repetitions: 3 sets in // bars Balance exercises: step over obstacles, sidestep, walk forward (toss ball up/catch, w/o UE support) Functional Exercises: sit to stand with cues for technique and safety x 5 Functional Endurance ROM L LE ROM: decreased hip flexion approximately 15% R LE ROM: with knee flexed pt right ankle reaches neutral to 62 degrees; however with knee extended ankle ROM is 16 - 46 degrees Strength L LE Strength: grossly 4/5 R LE Strength: grossly 4/5 Coordination Vision Muscle Tone Muscle Tone Assessment Right-Side Extremities Muscle Tone Assessment: moderately, hypertonic, flexor pattern LLE Muscle Tone Assessment: (WNL) STG GOALS Bed Mobility Goal, Activity Type: roll left/roll right, scoot/bridge, supine to sit/sit to supine [place] Level: modified independence Assistive Device: none Time to Achieve: 2 - 3 days Goal Status: progressing toward goal Transfer Training Goal, Activity Type: bed to chair /chair to bed, sit to stand/stand to si t [place] Level: modified independence Assistive Device: 2 wheeled walker (FWW) Time to Achieve: 2 - 3 days Goal Status: progressing toward goal Gait Training Goal, [place] Level: contact guard assist Assistive Device: 2 wheeled walker (FWW) Distance: 150 feet Time to Achieve: 2 - 3 days Goal Status: progressing toward goal Stairs Goal, [place] Level: contact guard assist Assistive Device: (Handrails) Number of Stairs: 12 Time to Achieve: 2 - 3 days Goal Status: progressing toward goal LTG GOALS Bed Mobility Goal, Activity Type: roll left/roll right, scoot/bridge, supine to sit/sit to supine [place] Level: independent Assistive Device: none Time to Achieve: 1 wk Goal Status: progressing toward goal Transfer Training Goal, Activity Type: bed to chair /chair to bed, sit to stand/stand to si t [place] Level: modified independence Assistive Device: 2 wheeled walker (FWW) Time to Achieve: 1 wk Goal Status: progressing toward goal Gait Training Goal, [place] Level: modified independence Assistive Device: 2 wheeled walker (FWW) Distance: 300 feet Time to Achieve: 1 wk Goal Status: progressing toward goal Number of Stairs: 16 Time to Achieve: 1 wk Goal Status: not addressed FIM: FIM Transfers Bed/Chair/Wheelchair: 5 Bed/Chair/WC Score Evidence: 5 Safety Supervision, 5 Verbal Cues Toilet: 4 Toilet Transfer Evidence: 4 Steadying, 5 Safety Supervision, 5 Verbal Cues Tub / Shower: 5 Tub/Shower Score Evidence: 5 Prepare WC, 5 Safety Supervision FIM Self Care Eatin Eating Score Evidence: 6 Extra Time Groomin Grooming Score Evidence: 5 Safety Supervison, 5 Verbal Cues Bathin Bathing Score Evidence: 4 Steadying, 5 Verbal Cues, 5 Safety Supervison, 5 Get Items (pinch ed wash cloth to wash lower legs/feet) Dressing - Upper Body: 5 Dressing Upper Score Evidence: 5 Get Clothing, 5 Verbal Cues, 5 Safety Supervision Dressing - Lower Body: 3 Dressing Lower Score Evidence: 3 Dep 4-7 Tasks, 5 Verbal Cues, 5 Safety Supervision, 6 Reac her, 6 Sock Aid Toiletin Toileting Score Evidence: 5 Safety Supervision, 5 Verbal Cues, 4 Steadying FIM Social/Cognition Social Interaction: 6 Social Interaction Score Evidence: 6 Extra Time Problem Solvin Problem Solving Score Evidence: 6 Extra Time, 5 Daily Prbs 91-99% Memory: 5 Memory Score Evidence: 5 Recalls 91-99%, 5 Cues During Stress (requiring cuing w precaution s) FIM Locomotion Walk: 2 Distance Walked (feet): 80 feet Walk Score Evidence: 2 Pt 25-49% Effort/50-149ft FIM Modifier DC Locomotion: walk FIM Modifier Walk Distance: 2 50-149 feet Stairs: 0 Stairs Score Evidence: 0 Did Not Occur FIM Communication Comprehension - Auditory: 6 Comprehension - Visual: 6 Comprehension Score Evidence: 6 Uses Glasses, 6 Needs Extra Time Expression - Vocal: 6 Expression - Non Vocal: 6 Expression Score Evidence: 6 Extra Time Assessment: Pt unable to clear (R) foot during swing phase and able was able to correct it 20% of the time with verbal cues. Pt will benefit from a DF assist AFO to improve toe clear ance. Pt did not c/o (R) thigh spasm. Attempted to wean pt off O2. Noted inc.wheezing aft er approx.5 mins.on room air. Pt had post.LOB when managing urinal and required min A to simone ortizin balance. Cont. PT to improve functional mobility. Physical Therapy Anticipated Discharge Needs are: home with assist, home with home health Have the anticipated discharge needs changed? no Post discharge physical therapy recommendation: Home health PT Plan for next treatment: IRF, BID, CW, FWW progressive gait with AFO, skin check, bed mobil ity and transfer training. Electronically signed by: ABI DE DIOS, PT, 07/10/2016 17:02 lan of Care - Abi De Dios, PT - 07/10/2016 4:33 PM PDTProblem: Patient Care Overview (Adult) Goal: Care Team Goals & Evaluation PROBLEM-RELATED GOALS: 1. Pt will tolerate level soft chopped foods and thin liquids with no s/s of airway comprom ise by 07/12/16. 2. Pt will be modified independent with ambulation in hallway by 07/12/16. 3. Pt will report a pain level of 1/10 on a pain scale by 07/12/16. 4. Pt will have no s/s of infection by 07/12/16. 5. Mr. Aleman will meet 75% of predicted incentive spirometer goal of 2100 by 10/25/16. 5. Pt will eat >75% of meals by July 12 STRATEGY TO ACHIEVE GOALS: 1. Pt will participate in ST -Pt will participate in all PT activities. -assess pain level throiugh the day and provide PRN pain medications. Encouraged frequent p osition changes for comfort. - monitor VS and lab results and notify MD as need it. Instruct patient in the use of Incentive Spirometry and/or deep breath and cough. Nursing a nd Respiratory to work together to have patient use every hour while awake. Respiratory to m onitor progress 4 times daily until 75% goal met then turn over to nursing. Will f/u to adjust food and fluids to pt preferences/tolerances and provide nutritional sup plements RESTRAINT-RELATED GOALS: STRATEGIES TO ACHIEVE RESTRAINT GOALS: Outcome: Improving Physical Therapy Daily Treatment Note Patient Information Patient Name: Kevin Aleman . Date of : 1945 Age: 70 y.o. Precautions/Limitations: falls, spinal, orthotic/bracing, corrective lenses, swallowing History of Presenting Problem: back and right hip pain. Pt is now s/p L2-4 LAIF; L4-L5 TLI F; L2-L5 posterior instrumentation. PT Diagnosis: Impaired mobility Start Time: 929 Stop time: 943 Time Calculation: 14 minutes Missed Treatment Time: 0 minutes Total Treatment Time: 14 minutes TimedTreatment Code Minutes: 14 minutes Subjective: Received pt resting in bed and declined to get out OOB d/t fatigue. Pt was not able to sleep last night d/t frequent intermittent (R) thigh/leg spasm. Pt agreed to have manual therapy on (R) thigh. Objective: Treatment Provided: to aug.pain and spasm on (R) quads. Education: importance of mobilty. Patient Status/Goals: Reflects last filed data of patient status; may be from multiple contributors. STG GOALS Bed Mobility Goal, Activity Type: roll left/roll right, scoot/bridge, supine to sit/sit to supine [place] Level: modified independence Assistive Device: none Time to Achieve: 2 - 3 days Goal Status: continued Transfer Training Goal, Activity Type: bed to chair /chair to bed, sit to stand/stand to si t [place] Level: modified independence Assistive Device: 2 wheeled walker (FWW) Time to Achieve: 2 - 3 days Goal Status: continued Gait Training Goal, [place] Level: contact guard assist Assistive Device: 2 wheeled walker (FWW) Distance: 150 feet Time to Achieve: 2 - 3 days Goal Status: continued Stairs Goal, [place] Level: contact guard assist Assistive Device: (Handrails) Number of Stairs: 12 Time to Achieve: 2 - 3 days Goal Status: continued LTG GOALS Bed Mobility Goal, Activity Type: roll left/roll right, scoot/bridge, supine to sit/sit to supine [place] Level: independent Assistive Device: none Time to Achieve: 1 wk Goal Status: continued Transfer Training Goal, Activity Type: bed to chair /chair to bed, sit to stand/stand to si t [place] Level: modified independence Assistive Device: 2 wheeled walker (FWW) Time to Achieve: 1 wk Goal Status: continued Gait Training Goal, [place] Level: modified independence Assistive Device: 2 wheeled walker (FWW) Distance: 300 feet Time to Achieve: 1 wk Goal Status: continued Number of Stairs: 16 Time to Achieve: 1 wk Goal Status: continued Assessment: Pt unable to participate on therapy this morning d/t lack of sleep. Cont. PT t o improve functional mobility. Physical Therapy Anticipated Discharge Needs are: home with assist, home with home health Plan for next treatment: IRF, BID, CW, FWW progressive gait with AFO, skin check, bed mobil ity and transfer training. Electronically signed by: ABI DE DIOS, PT, 07/10/2016 16:25 lan of [facility] - Wilfred Torrez V, RDN - 07/10/2016 2:42 PM PDTFormatting of this note might be different from th e original. Problem: Patient Care Overview (Adult) Goal: Care Team Goals & Evaluation PROBLEM-RELATED GOALS: 1. Pt will tolerate level soft chopped foods and thin liquids with no s/s of airway comprom ise by 07/12/16. 2. Pt will be modified independent with ambulation in hallway by 07/12/16. 3. Pt will report a pain level of 1/10 on a pain scale by 07/12/16. 4. Pt will have no s/s of infection by 07/12/16. 5. Mr. Aleman will meet 75% of predicted incentive spirometer goal of 2100 by 07/09/16. 5. Pt will eat >75% of meals by July 12 STRATEGY TO ACHIEVE GOALS: 1. Pt will participate in ST -Pt will participate in all PT activities. -assess pain level throiugh the day and provide PRN pain medications. Encouraged frequent p osition changes for comfort. - monitor VS and lab results and notify MD as need it. Instruct patient in the use of Incentive Spirometry and/or deep breath and cough. Nursing a nd Respiratory to work together to have patient use every hour while awake. Respiratory to m onitor progress 4 times daily until 75% goal met then turn over to nursing. Will f/u to adjust food and fluids to pt preferences/tolerances and provide nutritional sup plements RESTRAINT-RELATED GOALS: STRATEGIES TO ACHIEVE RESTRAINT GOALS: Outcome: Unchanged Goal Evaluation: NUTRITION THERAPY NOTE Summary: Pt admitted to [facility] following back surgery. His appetite and intake has been poor . He states his weight fluctuates between 135-148 lbs. He is confused by current weight of 150 lbs. He has agreed to nutritional supplements and help with menu options to help impro ve his overall intake and nutritional status. His intake has improved somewhat since admiss ion, fluid intake yesterday was >2000 mL and he is eating 50-100% of a dysphagia advanced diet. He does however select very little at mealtime. Estimated Energy and Protein Needs: (based on 68 kg) Kcal needs: 9257-9144 Protein needs:70-85 Fluid goal:[id number] Nutrition Plan of Care: Nutrition Diagnosis: Inadequate protein and energy intake related to poor appetite as lolis denced by pt comments, menu selections and I/O showing marginal intake overall. Interventions: 1. As noted above 2. Nutritional supplements tid Nutrition Interventions: supplemental drinks provided Nutrition Goals: 1. Improved intake to >75% of his meals 2. Stable weight Monitor: 1. Intake 2. Pt comments F/u in 2 days. Available as needed, ext [phone] Assessment: Diet Order: For your reference, current, active order is: Diet general; dysphagia advanced; thin liquids allowed; Effective Now I Recent Labs 07/10/16 0523 07/08/16 0015 NA 135* -- K 3.6 2.8* CL 102 -- BUN 5* -- CREA 0.77 -- MG -- 1.9 Anthropometrics: Height: 165.1 cm (5' 5") Weight: 68.4 kg (150 lb 12.7 oz) Wt Readings from Last 3 Encounters: 07/07/16 68.4 kg (150 lb 12.7 oz) 07/03/16 65.772 kg (145 lb) 06/21/16 63.504 kg (140 lb) Body mass index is 25.09 kg/(m^2). Electronically Signed by: WILFRED TORREZ RDN 07/10/2016 14:33 reatment Plan - Hallie Puga RN - 07/10/2016 1:34 PM PDTResting in bed, stated pain level 3/10, refused p rn rx at this moment, no grimacing noted, pt stated that he will inform RN when ready for so mething for pain. Will continue monitoring. Electronically signed by Hallie Puga RN at 1:35 PM PDTPlan of Care - Mirna Benedict COTA - 07/10/2016 12:41 PM PDTProblem: Luis Fernando [place] Care Overview (Adult) Goal: Care Team Goals & Evaluation PROBLEM-RELATED GOALS: 1. Pt will tolerate level soft chopped foods and thin liquids with no s/s of airway comprom ise by 07/12/16. 2. Pt will be modified independent with ambulation in hallway by 07/12/16. 3. Pt will report a pain level of 1/10 on a pain scale by 07/12/16. 4. Pt will have no s/s of infection by 07/12/16. 5. Mr. Aleman will meet 75% of predicted incentive spirometer goal of 2100 by 07/09/16. STRATEGY TO ACHIEVE GOALS: 1. Pt will participate in ST -Pt will participate in all PT activities. -assess pain level throiugh the day and provide PRN pain medications. Encouraged frequent p osition changes for comfort. - monitor VS and lab results and notify MD as need it. Instruct patient in the use of Incentive Spirometry and/or deep breath and cough. Nursing a nd Respiratory to work together to have patient use every hour while awake. Respiratory to m onitor progress 4 times daily until 75% goal met then turn over to nursing. RESTRAINT-RELATED GOALS: STRATEGIES TO ACHIEVE RESTRAINT GOALS: Occupational Therapy Daily Treatment Note Patient Information Patient Name: Kevin Aleman Sr. Date of : 1945 Age: 70 y.o. Precautions/Limitations: falls, spinal, orthotic/bracing, corrective lenses, swallowing Start Time: 841 Stop time: 934 Time Calculation: 53 minutes Missed Treatment Time: 10 minutes Total Treatment Time: 43 minutes TimedTreatment Code Minutes: 43 minutes Frequency: daily Subjective: Pt agreeable to therapy w/ encouragement and Dr Young came in to visit w/ pt Objective: Pt c/o pain on lower back,RLE and fatigued this am d/t not sleepingn much last two days. S tated to this therapist " I am going home today becouse I can not get any sleep here,people come in to check my blood pressure, and that bed alarm goes on all the time even when I move in bed !! " Provided emotional support, active listening,notified nursing of pt's concerns re not getting any sleep here at night. Completed self cares at bedside w/ assist/cues for L SO management; steadying assist provided when standing to wash perineum/pulling underpants/p ants up to waist. Dr Young came in to see pt during tx session and also provided active li stening to pt and pt more calmed and agreeable to continue working w/ therapies. Education: Spinal precautions/LSO management Treatment Provided: Fxl mobility/ADL training including sponge bath and dressing tasks usin g A/E to facilitate L/B bathing/dressing following spinal precautions Patient Status/Goals Reflects last filed data of patient status; may be from multiple contributors. ADLs Completed self cares from sitting at EOB usiing A/E for L/B sponge bathed sitting at EOB Bathing, Level of [place]: contact guard assist, verbal cues required, supervision req uired, set up required Assistive Device: transmitter engineer in charge Bathing Assess/Train, Position: sitting, supported standing Bathing Assess/Train, Impairments: decreased flexibility, ROM decreased, strength decreased , impaired balance, pain seated UB Dressing, Level of [place]: set up required, supervision required, verbal cues requ ired Assistive Device: none UB Dressing Assess/Train, Position: sitting seated LB, Level of [place]: moderate assist (50% patient effort), verbal cues required, supe rvision required Assistive Device: transmitter engineer in charge, sock-aid LB Dressing Assess/Train, Position: sitting, supported standing LB Dressing Assess/Train, Impairments: decreased flexibility, ROM decreased, strength decre ased, impaired balance, pain Toileting, Level of [place]: not tested . Grooming, Level of [place]: not tested T STG Goals Transfer Training Goal, Activity Type: toilet [place] Level: minimum assist (75% patient effort) Assistive Device: 2 wheeled walker (FWW) Time to Achieve: 5 - 7 days Goal Status: met Grooming Goal, [place] Level: set up required, verbal cues required Adaptive Equipment: none Position: sitting in chair Time to Achieve: 2 - 3 days Goal Status: met Bathing Goal, [place] Level: minimum assist (75% patient effort) Adaptive Equpiment: grab bars, scrub brush, shower chair Time to Achieve: 5 - 7 days Goal Status: met Toileting Goal, [place] Level: minimum assist (75% patient effort), verbal cues requir ed Assistive Device: toilet paper aid Time to Achieve: 5 - 7 days Goal Status: continued, not addressed UB Dressing Goal, [place] Level: minimum assist (75% patient effort), verbal cues requ ired Adaptive Equipment: none Time to Achieve: 5 - 7 days Goal Status: met LB Dressing Goal, [place] Level: moderate assist (50% patient effort) Adaptive Equipment: transmitter engineer in charge, dressing stick, shoe horn, long handled Time to Achieve: 5 - 7 days Goal Status: met LTG Goals Transfer Training Goal, Activity Type: walk-in shower, toilet [place] Level: contact guard assist Assistive Device: 2 wheeled walker (FWW), grab bars Time to Achieve: 5 - 7 days Goal Status: continued, not addressed Grooming Goal, [place] Level: set up required Adaptive Equipment: none Position: sitting in chair Time to Achieve: 5 - 7 days Goal Status: continued, not addressed Bathing Goal, [place] Level: set up required, verbal cues required Adaptive Equpiment: grab bars, scrub brush Time to Achieve: 5 - 7 days Goal Status: continued, progressing toward goal Toileting Goal, [place] Level: supervision required Assistive Device: none Time to Achieve: 5 - 7 days Goal Status: continued, not addressed UB Dressing Goal, [place] Level: set up required Adaptive Equipment: none Time to Achieve: 5 - 7 days Goal Status: met LB Dressing Goal, [place] Level: verbal cues required, set up required Adaptive Equipment: transmitter engineer in charge, laces, elastic, shoe horn, long handled, sock-aid Time to Achieve: 5 - 7 days Goal Status: continued, progressing toward goal FIM: FIM Self Care Bathin Bathing Score Evidence: 4 Steadying, 5 Verbal Cues, 5 Safety Supervison, 5 Get Items (pinch ed wash cloth to wash lower legs/feet) Dressing - Upper Body: 5 Dressing Upper Score Evidence: 5 Get Clothing, 5 Verbal Cues, 5 Safety Supervision Dressing - Lower Body: 3 Dressing Lower Score Evidence: 3 Dep 4-7 Tasks, 5 Verbal Cues, 5 Safety Supervision, 6 Reac her, 6 Sock Aid Assessment: Required cues for donning LSO and to verbalized 2/5 spinal precautions. Noted g ood progress w/ edema reduction on lower back as tissue is less edematous vs yesterday. To c ont progressing fxl mobility/ADL performance Occupational Therapy Anticipated Discharge Needs are: home with home health Have the anticipated discharge needs changed? no Post discharge occupational therapy recommendation: TBD Plan for next treatment: 1P,NK/dynamic standing balance at sink for light grooming Electronically signed by: CHEMO Mcneal, 07/10/2016 12:07 reatment Plan - Hallie Linares RN - 07/10/2016 12:00 PM PDTTransferred and ambulated to w fww+cga, voided 200c/y/u and had a large bm, was able to do own toileting needs and able to pull pants down and up w set up. No c/o pain or discomfort.Electronically signed by Hallie Puga RN at 06/16 1:34 PM PDTPlan of Care - Efrain Garzon RRT - 07/10/2016 6:18 AM PDTProblem: Luis Fernando [place] Care Overview (Adult) Goal: Care Team Goals & Evaluation PROBLEM-RELATED GOALS: 1. Pt will tolerate level soft chopped foods and thin liquids with no s/s of airway comprom ise by 07/12/16. 2. Pt will be modified independent with ambulation in hallway by 07/12/16. 3. Pt will report a pain level of 1/10 on a pain scale by 07/12/16. 4. Pt will have no s/s of infection by 07/12/16. 5. Mr. Aleman will meet 75% of predicted incentive spirometer goal of 2100 by 07/09/16. STRATEGY TO ACHIEVE GOALS: 1. Pt will participate in ST -Pt will participate in all PT activities. -assess pain level throiugh the day and provide PRN pain medications. Encouraged frequent p osition changes for comfort. - monitor VS and lab results and notify MD as need it. Instruct patient in the use of Incentive Spirometry and/or deep breath and cough. Nursing a nd Respiratory to work together to have patient use every hour while awake. Respiratory to m onitor progress 4 times daily until 75% goal met then turn over to nursing. RESTRAINT-RELATED GOALS: STRATEGIES TO ACHIEVE RESTRAINT GOALS: Outcome: Improving Goal Evaluation: Kevin SpO2 96 % on nasal cannula at flow rate 0.5 LPM. Titrated from 2 L pm. No PRN treatments given this shift. RT will continue to monitor and treat as indicated. lan of Care - Cl Filippo edward RN - 07/10/2016 4:12 AM PDTProblem: Patient Care Overview (Adult) Goal: Care Team Goals & Evaluation PROBLEM-RELATED GOALS: 1. Pt will tolerate level soft chopped foods and thin liquids with no s/s of airway comprom ise by 07/12/16. 2. Pt will be modified independent with ambulation in hallway by 07/12/16. 3. Pt will report a pain level of 1/10 on a pain scale by 07/12/16. 4. Pt will have no s/s of infection by 07/12/16. 5. Mr. Aleman will meet 75% of predicted incentive spirometer goal of 2100 by 07/09/16. STRATEGY TO ACHIEVE GOALS: 1. Pt will participate in ST -Pt will participate in all PT activities. -assess pain level throiugh the day and provide PRN pain medications. Encouraged frequent p osition changes for comfort. - monitor VS and lab results and notify MD as need it. Instruct patient in the use of Incentive Spirometry and/or deep breath and cough. Nursing a nd Respiratory to work together to have patient use every hour while awake. Respiratory to m onitor progress 4 times daily until 75% goal met then turn over to nursing. RESTRAINT-RELATED GOALS: STRATEGIES TO ACHIEVE RESTRAINT GOALS: Outcome: Improving Goal Evaluation: Patient alert, calm, and cooperative. Patient denied pain throughout the night. Patient abl e to ambulate with CDA and FWW to the chair without incident. Incision sites well approximat ed and free from signs and/or symptoms of infection. Heart rate regular. Lungs clear and equ al bilaterally. Bowel tones active in x 4 quads. Afebrile. lan of Care - Ut Joselin laguerre RN - 07/09/2016 9:26 PM PDTProblem: Patient Care Overview (Adult) Goal: Care Team Goals & Evaluation PROBLEM-RELATED GOALS: 1. Pt will tolerate level soft chopped foods and thin liquids with no s/s of airway comprom ise by 07/12/16. 2. Pt will be modified independent with ambulation in hallway by 07/12/16. 3. Pt will report a pain level of 1/10 on a pain scale by 07/12/16. 4. Pt will have no s/s of infection by 07/12/16. 5. Mr. Aleman will meet 75% of predicted incentive spirometer goal of 2100 by 07/09/16. STRATEGY TO ACHIEVE GOALS: 1. Pt will participate in ST -Pt will participate in all PT activities. -assess pain level throiugh the day and provide PRN pain medications. Encouraged frequent p osition changes for comfort. - monitor VS and lab results and notify MD as need it. Instruct patient in the use of Incentive Spirometry and/or deep breath and cough. Nursing a nd Respiratory to work together to have patient use every hour while awake. Respiratory to m onitor progress 4 times daily until 75% goal met then turn over to nursing. RESTRAINT-RELATED GOALS: STRATEGIES TO ACHIEVE RESTRAINT GOALS: Outcome: Improving Goal Evaluation: Pt alert and oriented x4, c/o pain in b/l hips and low back, baclofen and flexeril, given x 1 each, Lymph tape to b/l sides, b/l side bruising, skin tear to RFA meplix drsg, HRR, LS-C 2L/o2 nc SOB w/ exertions, takes meds in applesauce followed by a sips of thin liquid, no di fficulty with meds today. MS RLE 4/5, LLE 4-/4 needs asst to get leg in bed. Rash to groin improving-powder applied, redness to facial folds- cream applied,2 assist with FWW to BR, 1 per CGA Tx bed/chair - needs asst w/ leg in/out bed, small voids, urgency and occasional in continence- becky pad, Bowel: soft stools lan of Care - Abi De Dios, PT - 07/09/2016 5:03 PM PDTProblem: Patient Care Overview (Adult) Goal: Care Team Goals & Evaluation PROBLEM-RELATED GOALS: 1. Pt will tolerate level soft chopped foods and thin liquids with no s/s of airway comprom ise by 07/12/16. 2. Pt will be modified independent with ambulation in hallway by 07/12/16. 3. Pt will report a pain level of 1/10 on a pain scale by 07/12/16. 4. Pt will have no s/s of infection by 07/12/16. 5. Mr. Aleman will meet 75% of predicted incentive spirometer goal of 2100 by 07/09/16. STRATEGY TO ACHIEVE GOALS: 1. Pt will participate in ST -Pt will participate in all PT activities. -assess pain level throiugh the day and provide PRN pain medications. Encouraged frequent p osition changes for comfort. - monitor VS and lab results and notify MD as need it. Instruct patient in the use of Incentive Spirometry and/or deep breath and cough. Nursing a nd Respiratory to work together to have patient use every hour while awake. Respiratory to m onitor progress 4 times daily until 75% goal met then turn over to nursing. RESTRAINT-RELATED GOALS: STRATEGIES TO ACHIEVE RESTRAINT GOALS: Outcome: Improving Physical Therapy Daily Treatment Note Patient Information Patient Name: Kevin Aleman . Date of : 1945 Age: 70 y.o. Precautions/Limitations: falls, spinal, orthotic/bracing, corrective lenses, swallowing History of Presenting Problem: back and right hip pain. Pt is now s/p L2-4 LAIF; L4-L5 TLI F; L2-L5 posterior instrumentation. PT Diagnosis: Impaired mobility Start Time: 1436 Stop time: 1537 Time Calculation: 61 minutes Missed Treatment Time: 0 minutes Total Treatment Time: 61 minutes TimedTreatment Code Minutes: 61 minutes Subjective: Received pt resting in bed and c/o intermittent (R) thigh spasm and has difficu lty extending the leg d/t ms spasm would set in. Objective: Treatment Provided: Pt was seen for bed mobility, balance, gait, and transfer training to [facility] and provided verbal cues for correct sequence and technique for safety. See below for details. Applied kineseotape on (R) quads (inhibition technique) and cold pa ck after tx to dec.spasm. Education: safe transfers and log rolling. Patient Status/Goals: Reflects last filed data of patient status; may be from multiple contributors. Gait cues for inc.(R) hip flex during swing phase to inc.toe clearance. Level of [place] : supervision required, 1 person + 1 person to manage equipment Assistive Device: 2 wheeled walker (FWW) Distance (feet): 70' Gait Pattern Analysis: 2-point gait Gait Deviations: xqq-od-[id number] clearance decreased, hiram decreased, double stance time in creased, weight-shifting ability decreased, limb motion velocity decreased, step length decr eased, stride length decreased Transfers Bed-Chair, Level of [place]: verbal cues required, supervision required Chair-Bed, Level of [place]: verbal cues required, supervision required [id number], Assistive Device: 2 wheeled walker (FWW) Sit-Stand, Level of [place]: supervision required, verbal cues required Stand-Sit, Level of [place]: supervision required, verbal cues required [id number], Assistive Device: 2 wheeled walker (FWW) Safety Issues: step length decreased, weight-shifting ability decreased Impairments: strength decreased, impaired balance, decreased flexibility Bed Mobility max cuing for log roll Assistive Device: bed rails Roll Left, Level of [place]: supervision required, verbal cues required Supine to Sit, Level of [place]: supervision required, verbal cues required Sit to Supine, Level of [place]: supervision required, verbal cues required Safety Issues: decreased use of legs for bridging/pushing Impairments: pain, decreased flexibility, strength decreased Therapeutic Exercise inc.pain on ant.thigh with hip flexion. Standing exercises: sidestepping Repetitions: 3 sets in // bars Balance exercises: step over obstacles STG GOALS Bed Mobility Goal, Activity Type: roll left/roll right, scoot/bridge, supine to sit/sit to supine [place] Level: modified independence Assistive Device: none Time to Achieve: 2 - 3 days Goal Status: progressing toward goal Transfer Training Goal, Activity Type: bed to chair /chair to bed, sit to stand/stand to si t [place] Level: modified independence Assistive Device: 2 wheeled walker (FWW) Time to Achieve: 2 - 3 days Goal Status: progressing toward goal Gait Training Goal, [place] Level: contact guard assist Assistive Device: 2 wheeled walker (FWW) Distance: 150 feet Time to Achieve: 2 - 3 days Goal Status: progressing toward goal Stairs Goal, [place] Level: contact guard assist Assistive Device: (Handrails) Number of Stairs: 12 Time to Achieve: 2 - 3 days Goal Status: not addressed LTG GOALS Bed Mobility Goal, Activity Type: roll left/roll right, scoot/bridge, supine to sit/sit to supine [place] Level: independent Assistive Device: none Time to Achieve: 1 wk Goal Status: progressing toward goal Transfer Training Goal, Activity Type: bed to chair /chair to bed, sit to stand/stand to si t [place] Level: modified independence Assistive Device: 2 wheeled walker (FWW) Time to Achieve: 1 wk Goal Status: progressing toward goal Gait Training Goal, [place] Level: modified independence Assistive Device: 2 wheeled walker (FWW) Distance: 300 feet Time to Achieve: 1 wk Goal Status: progressing toward goal Number of Stairs: 16 Time to Achieve: 1 wk Goal Status: not addressed Assessment: Pt does not clear (R) foot during walking and will benefit from a DF assist AFO to improve gait. (R) thigh spasm limiting pt's participation d/t pain. Cont. PT to aniyah browne in functional mobility for safe d/c to home. Physical Therapy Anticipated Discharge Needs are: home with assist Have the anticipated discharge needs changed? no Post discharge physical therapy recommendation: On going low intensity PT Plan for next treatment: IRF, BID, CW, FWW progressive gait with AFO, skin check, bed mobil ity and transfer training. Electronically signed by: ABI DE DIOS, PT, 07/09/2016 16:56 lan of Care - Minra PalacioCHEMO - 07/09/2016 3:40 PM PDTProblem: Patient Care Overview (Adult) Goal: Care Team Goals & Evaluation PROBLEM-RELATED GOALS: 1. Pt will tolerate level soft chopped foods and thin liquids with no s/s of airway comprom ise by 07/12/16. 2. Pt will be modified independent with ambulation in hallway by 07/12/16. 3. Pt will report a pain level of 1/10 on a pain scale by 07/12/16. 4. Pt will have no s/s of infection by 07/12/16. 5. Mr. Aleman will meet 75% of predicted incentive spirometer goal of 2100 by 07/09/16. STRATEGY TO ACHIEVE GOALS: 1. Pt will participate in ST -Pt will participate in all PT activities. -assess pain level throiugh the day and provide PRN pain medications. Encouraged frequent p osition changes for comfort. - monitor VS and lab results and notify MD as need it. Instruct patient in the use of Incentive Spirometry and/or deep breath and cough. Nursing a nd Respiratory to work together to have patient use every hour while awake. Respiratory to m onitor progress 4 times daily until 75% goal met then turn over to nursing. RESTRAINT-RELATED GOALS: STRATEGIES TO ACHIEVE RESTRAINT GOALS: Occupational Therapy Daily Treatment Note Patient Information Patient Name: Kevin Aleman . Date of : 1945 Age: 70 y.o. Precautions/Limitations: falls, spinal, orthotic/bracing, corrective lenses, swallowing Start Time: 1310 Stop time: 1358 Time Calculation: 48 minutes Missed Treatment Time: 0 minutes Total Treatment Time: 48 minutes TimedTreatment Code Minutes: 48 minutes Frequency: daily Subjective: Pt agreeable to therapy but c/o of fatigue and pain this pm ( was medicated for pain prior to tx) Objective: Pt c/o of pain and fatigue this pm but agreeable to therapy and seen for self care t/f's tr aining and edema mangement to B lats on l ower back as tissue was moderately edematous. Pt a ble to get from supine>EOB SBA using bed features and sit>stand w/fww and to ambulate to/fro m toilet cga. T/d'>toilet and completed hygiene cga. Steadying assist provided when stand ing for clothing managemet and kinisiotape applied to B sides of lower back for edema reduct ion after no neg reaction noted to kinisiotape. RN applied medicated powder to becky area and mod A provided to t/f>bed. Call light placed w/ reach. Education: Toilet t/f's Treatment Provided: Pt seen for self care t/f's and edema management/kinisiotape applicatio n for edema reduction to B lats on lower back Patient Status/Goals Reflects last filed data of patient status; may be from multiple contributors. ADLs . . Toileting, Level of [place]: contact guard assist, verbal cues required, supervision r equired Toileting Assess/Train, Position: sitting, supported standing Toileting Assess/Train, Impairments: decreased flexibility, strength decreased, impaired ba klaus, motor control impaired, pain Transfers Toilet, Level of [place]: contact guard assist, verbal cues required, supervision requ ired Toilet, Assistive Device: 2 wheeled walker (FWW), grab bars, seat riser Impairments: decreased flexibility, ROM decreased, strength decreased, impaired balance, mo tor control impaired, pain STG Goals Transfer Training Goal, Activity Type: toilet [place] Level: minimum assist (75% patient effort) Assistive Device: 2 wheeled walker (FWW) Time to Achieve: 5 - 7 days Goal Status: met Grooming Goal, [place] Level: set up required, verbal cues required Adaptive Equipment: none Position: sitting in chair Time to Achieve: 2 - 3 days Goal Status: met Bathing Goal, [place] Level: minimum assist (75% patient effort) Adaptive Equpiment: grab bars, scrub brush, shower chair Time to Achieve: 5 - 7 days Goal Status: met Toileting Goal, [place] Level: minimum assist (75% patient effort), verbal cues requir ed Assistive Device: toilet paper aid Time to Achieve: 5 - 7 days Goal Status: continued UB Dressing Goal, [place] Level: minimum assist (75% patient effort), verbal cues requ ired Adaptive Equipment: none Time to Achieve: 5 - 7 days Goal Status: met LB Dressing Goal, [place] Level: moderate assist (50% patient effort) Adaptive Equipment: transmitter engineer in charge, dressing stick, shoe horn, long handled Time to Achieve: 5 - 7 days Goal Status: met LTG Goals Transfer Training Goal, Activity Type: walk-in shower, toilet [place] Level: contact guard assist Assistive Device: 2 wheeled walker (FWW), grab bars Time to Achieve: 5 - 7 days Goal Status: progressing toward goal Grooming Goal, [place] Level: set up required Adaptive Equipment: none Position: sitting in chair Time to Achieve: 5 - 7 days Goal Status: continued, not addressed Bathing Goal, [place] Level: set up required, verbal cues required Adaptive Equpiment: grab bars, scrub brush Time to Achieve: 5 - 7 days Goal Status: continued,not addressed Toileting Goal, [place] Level: supervision required Assistive Device: none Time to Achieve: 5 - 7 days Goal Status: continued UB Dressing Goal, [place] Level: set up required Adaptive Equipment: none Time to Achieve: 5 - 7 days Goal Status: condinued, LB Dressing Goal, [place] Level: verbal cues required, set up required Adaptive Equipment: transmitter engineer in charge, laces, elastic, shoe horn, long handled, sock-aid Time to Achieve: 5 - 7 days Goal Status: continued,not addressed FIM: FIM Transfers Toilet: cga Toilet Transfer Evidence: 4 Steadying Assist, 5 Verbal cues FIM Self Care Toiletin Toileting Score Evidence: 4 Steadying Assist,5 Verbal cues Assessment: Pain and fatigue major c/o from pt but motivated to participate in tx this pm. Pt reported no c/o pain or discomfort after kinisiotape application on B sides of lower back and to monitor edema. Occupational Therapy Anticipated Discharge Needs are: home with home health Have the anticipated discharge needs changed? no Post discharge occupational therapy recommendation: TBD Plan for next treatment: 1P,NK,ADL/self care t/f's training Electronically signed by: CHEMO Mcneal, 07/09/2016 15:23 lan of Care - Chin Loera OT - 07/09/2016 2:02 PM PDTProblem: Patient Care Overview (Adult) Goal: Care Team Goals & Evaluation PROBLEM-RELATED GOALS: 1. Pt will tolerate level soft chopped foods and thin liquids with no s/s of airway comprom ise by 07/12/16. 2. Pt will be modified independent with ambulation in hallway by 07/12/16. 3. Pt will report a pain level of 1/10 on a pain scale by 07/12/16. 4. Pt will have no s/s of infection by 07/12/16. 5. Mr. Aleman will meet 75% of predicted incentive spirometer goal of 2100 by 07/09/16. STRATEGY TO ACHIEVE GOALS: 1. Pt will participate in ST -Pt will participate in all PT activities. -assess pain level throiugh the day and provide PRN pain medications. Encouraged frequent p osition changes for comfort. - monitor VS and lab results and notify MD as need it. Instruct patient in the use of Incentive Spirometry and/or deep breath and cough. Nursing a nd Respiratory to work together to have patient use every hour while awake. Respiratory to m onitor progress 4 times daily until 75% goal met then turn over to nursing. RESTRAINT-RELATED GOALS: STRATEGIES TO ACHIEVE RESTRAINT GOALS: Occupational Therapy Daily Treatment Note Patient Information Patient Name: Kevin Aleman Sr. Date of : 1945 Age: 70 y.o. Precautions/Limitations: falls, spinal, orthotic/bracing, corrective lenses, swallowing Start Time: 0930 Stop time: 1030 Time Calculation: 60 minutes Missed Treatment Time: 0 minutes Total Treatment Time: 60 minutes TimedTreatment Code Minutes: 60 minutes Frequency: daily Subjective: unstated Objective: Pt seen for bathing. Pt transferred from bedroom to shower room, showered, dried off, dres sed, then returned to room. Pt transferred to/from shower room via w/c as pt reported pain in groin, weakness, low walking tolerance. See above for additional information. Pt seated in chair, chair alarm set, call light in reach. Education: safety during ADLs Treatment Provided: bathing, dressing, transfer training Patient Status/Goals Reflects last filed data of patient status; may be from multiple contributors. ADLs . . Bathing, Level of [place]: contact guard assist Assistive Device: grab bars, hand-held shower head, long-handled sponge, shower chair with back Bathing Assess/Train, Position: sitting Bathing Assess/Train, Impairments: decreased flexibility, ROM decreased, pain, impaired bal ance, strength decreased UB Dressing, Level of [place]: supervision required, set up required Assistive Device: none UB Dressing Assess/Train, Position: sitting . LB, Level of [place]: minimum assist (75% patient effort) Assistive Device: transmitter engineer in charge LB Dressing Assess/Train, Position: sitting, supported standing LB Dressing Assess/Train, Impairments: impaired balance, pain, strength decreased Bed Mobility Supine to Sit, Level of [place]: supervision required Sit to Supine, Level of [place]: supervision required Safety Issues: decreased use of legs for bridging/pushing Impairments: muscle tone abnormal, decreased flexibility, strength decreased, impaired rachna nce, coordination impaired, motor control impaired, pain Transfers Bed-Chair, Level of [place]: contact guard assist Chair-Bed, Level of [place]: contact guard assist, verbal cues required [id number], Assistive Device: 2 wheeled walker (FWW) Sit-Stand, Level of [place]: supervision required Stand-Sit, Level of [place]: supervision required [id number], Assistive Device: 2 wheeled walker (FWW) Walk-In Shower, Level of [place]: supervision required, verbal cues required Walk-in shower, Assistive Device: grab bars, shower chair Safety Issues: balance decreased during turns Impairments: decreased flexibility, muscle tone abnormal, strength decreased, impaired rachna nce, coordination impaired, motor control impaired, pain STG Goals Transfer Training Goal, Activity Type: toilet [place] Level: minimum assist (75% patient effort) Assistive Device: 2 wheeled walker (FWW) Time to Achieve: 5 - 7 days Goal Status: met Grooming Goal, [place] Level: set up required, verbal cues required Adaptive Equipment: none Position: sitting in chair Time to Achieve: 2 - 3 days Goal Status: met Bathing Goal, [place] Level: minimum assist (75% patient effort) Adaptive Equpiment: grab bars, scrub brush, shower chair Time to Achieve: 5 - 7 days Goal Status: met Toileting Goal, [place] Level: minimum assist (75% patient effort), verbal cues requir ed Assistive Device: toilet paper aid Time to Achieve: 5 - 7 days Goal Status: continued, not addressed UB Dressing Goal, [place] Level: minimum assist (75% patient effort), verbal cues requ ired Adaptive Equipment: none Time to Achieve: 5 - 7 days Goal Status: met LB Dressing Goal, [place] Level: moderate assist (50% patient effort) Adaptive Equipment: transmitter engineer in charge, dressing stick, shoe horn, long handled Time to Achieve: 5 - 7 days Goal Status: met LTG Goals Transfer Training Goal, Activity Type: walk-in shower, toilet [place] Level: contact guard assist Assistive Device: 2 wheeled walker (FWW), grab bars Time to Achieve: 5 - 7 days Goal Status: progressing toward goal Grooming Goal, [place] Level: set up required Adaptive Equipment: none Position: sitting in chair Time to Achieve: 5 - 7 days Goal Status: continued, not addressed Bathing Goal, [place] Level: set up required, verbal cues required Adaptive Equpiment: grab bars, scrub brush Time to Achieve: 5 - 7 days Goal Status: progressing toward goal Toileting Goal, [place] Level: supervision required Assistive Device: none Time to Achieve: 5 - 7 days Goal Status: continued, not addressed UB Dressing Goal, [place] Level: set up required Adaptive Equipment: none Time to Achieve: 5 - 7 days Goal Status: progressing toward goal LB Dressing Goal, [place] Level: verbal cues required, set up required Adaptive Equipment: transmitter engineer in charge, laces, elastic, shoe horn, long handled, sock-aid Time to Achieve: 5 - 7 days Goal Status: progressing toward goal FIM: FIM Transfers Bed/Chair/Wheelchair: 4 Bed/Chair/WC Score Evidence: 4 Steadying, 5 Prepare WC Toilet: 1 Toilet Transfer Evidence: 1 Two Helpers Tub / Shower: 5 Tub/Shower Score Evidence: 5 Prepare WC, 5 Safety Supervision FIM Self Care Eatin Eating Score Evidence: 6 Extra Time Groomin Grooming Score Evidence: 5 Safety Supervison, 5 Verbal Cues Bathin Bathing Score Evidence: 5 Other Assist, 5 Get Items, 5 Verbal Cues, 5 Safety Supervison Dressing - Upper Body: 5 Dressing Upper Score Evidence: 5 Get Clothing, 5 Safety Supervision Dressing - Lower Body: 3 Dressing Lower Score Evidence: 3 Dep 4-7 Tasks Toiletin Toileting Score Evidence: 5 Safety Supervision, 5 Other Assist FIM Social/Cognition Social Interaction: 6 Social Interaction Score Evidence: 6 Meds For Control Problem Solvin Problem Solving Score Evidence: 6 Extra Time Memory: 5 Memory Score Evidence: 6 Extra Time, 5 Recalls 91-99% FIM Locomotion Walk: 2 Distance Walked (feet): 75 feet Walk Score Evidence: 2 Pt 25-49% Effort/50-149ft FIM Modifier DC Locomotion: walk FIM Modifier Walk Distance: 2 50-149 feet Stairs: 2 Stairs Score Evidence: 2 4-6 Stairs w/Assist FIM Communication Comprehension - Auditory: 6 Comprehension - Visual: 6 Comprehension Score Evidence: 6 Uses Glasses, 6 Needs Extra Time Expression - Vocal: 6 Expression - Non Vocal: 6 Expression Score Evidence: 6 Extra Time Assessment: Pt tolerated activities well. No concerns noted Occupational Therapy Anticipated Discharge Needs are: home with home health Have the anticipated discharge needs changed? no Post discharge occupational therapy recommendation: TBD Plan for next treatment: 1P. DB. Grooming, transfer training Electronically signed by: Chin Kelly, OT, 07/09/2016 14:01 lan of Care - Lona arango, Hector Bella, PT - 07/09/2016 12:31 PM PDTProblem: Patient Care Overview (Adult) Goal: Care Team Goals & Evaluation PROBLEM-RELATED GOALS: 1. Pt will tolerate level soft chopped foods and thin liquids with no s/s of airway comprom ise by 07/12/16. 2. Pt will be modified independent with ambulation in hallway by 07/12/16. 3. Pt will report a pain level of 1/10 on a pain scale by 07/12/16. 4. Pt will have no s/s of infection by 07/12/16. 5. Mr. Aleman will meet 75% of predicted incentive spirometer goal of 2100 by 07/09/16. STRATEGY TO ACHIEVE GOALS: 1. Pt will participate in ST -Pt will participate in all PT activities. -assess pain level throiugh the day and provide PRN pain medications. Encouraged frequent p osition changes for comfort. - monitor VS and lab results and notify MD as need it. Instruct patient in the use of Incentive Spirometry and/or deep breath and cough. Nursing a nd Respiratory to work together to have patient use every hour while awake. Respiratory to m onitor progress 4 times daily until 75% goal met then turn over to nursing. RESTRAINT-RELATED GOALS: STRATEGIES TO ACHIEVE RESTRAINT GOALS: Outcome: Unchanged Physical Therapy Daily Treatment Note Patient Information Patient Name: Kevin Aleman Sr. Date of : 1945 Age: 70 y.o. Precautions/Limitations: falls, spinal, orthotic/bracing, corrective lenses, swallowing History of Presenting Problem: back and right hip pain. Pt is now s/p L2-4 LAIF; L4-L5 TLI F; L2-L5 posterior instrumentation. PT Diagnosis: Impaired mobility Start Time: 1110 Stop time: 1209 Time Calculation: 59 minutes Missed Treatment Time: 0 minutes Total Treatment Time: 59 minutes TimedTreatment Code Minutes: 59 minutes Subjective: Pt received in room supine in bed, spouse present. Pt agreeable to PT, however he had c/o 3-4/10 right thigh and hip pain. Objective: Treatment Provided: Bed mobility, LE strengthening and coordination, transfer training, saf ety, functional mobility, gait training with AFO, safety with AD. Education: PT plan of care. Patient Status/Goals: Reflects last filed data of patient status; may be from multiple contributors. Gait Trialed right AFO with PF stop, heel lift and great toe cushion Level of [place] : contact guard assist Assistive Device: 2 wheeled walker (FWW) Distance (feet): 40 feet Gait Pattern Analysis: 3-point gait Gait Deviations: double stance time increased, step length decreased, stride length decreas ed, hiram decreased, [id number] clearance decreased Transfers Bed-Chair, Level of [place]: contact guard assist Chair-Bed, Level of [place]: contact guard assist [id number], Assistive Device: 2 wheeled walker (FWW) Sit-Stand, Level of [place]: supervision required, verbal cues required Stand-Sit, Level of [place]: supervision required, verbal cues required [id number], Assistive Device: 2 wheeled walker (FWW) Safety Issues: balance decreased during turns Impairments: decreased flexibility, muscle tone abnormal, strength decreased, impaired rachna nce, coordination impaired, motor control impaired, pain Bed Mobility Log roll Assistive Device: none Roll Left, Level of [place]: supervision required Supine to Sit, Level of [place]: supervision required Sit to Supine, Level of [place]: not tested Safety Issues: decreased use of legs for bridging/pushing Impairments: muscle tone abnormal, decreased flexibility, strength decreased, impaired rachna nce, coordination impaired, motor control impaired, pain Balance Sitting Balance: Static: good balance Sitting Balance: Dynamic: fair balance Standing Balance: Static: fair balance Standing Balance: Dynamic: fair balance TUG - Timed Up and Go Timed Up and Go Score (TUG): 70 seconds Therapeutic Exercise Scifit x 3 min + 3 min+ 3 min with O2 sat check between each. Functional Exercises: sit to stand with cues for technique and safety x 5 Functional Endurance Fair ROM L LE ROM: decreased hip flexion approximately 15% R LE ROM: with knee flexed pt right ankle reaches neutral to 62 degrees; however with knee extended ankle ROM is 16 - 46 degrees Strength L LE Strength: grossly 4/5 R LE Strength: grossly 4/5 Muscle Tone Muscle Tone Assessment Right-Side Extremities Muscle Tone Assessment: moderately, hypertonic, flexor pattern LLE Muscle Tone Assessment: (WNL) STG GOALS Bed Mobility Goal, Activity Type: roll left/roll right, scoot/bridge, supine to sit/sit to supine [place] Level: modified independence Assistive Device: none Time to Achieve: 2 - 3 days Goal Status: progressing toward goal Transfer Training Goal, Activity Type: bed to chair /chair to bed, sit to stand/stand to si t [place] Level: modified independence Assistive Device: 2 wheeled walker (FWW) Time to Achieve: 2 - 3 days Goal Status: progressing toward goal Gait Training Goal, [place] Level: contact guard assist Assistive Device: 2 wheeled walker (FWW) Distance: 150 feet Time to Achieve: 2 - 3 days Goal Status: progressing toward goal Stairs Goal, [place] Level: contact guard assist Assistive Device: (Handrails) Number of Stairs: 12 Time to Achieve: 2 - 3 days Goal Status: not addressed LTG GOALS Bed Mobility Goal, Activity Type: roll left/roll right, scoot/bridge, supine to sit/sit to supine [place] Level: independent Assistive Device: none Time to Achieve: 1 wk Goal Status: progressing toward goal Transfer Training Goal, Activity Type: bed to chair /chair to bed, sit to stand/stand to si t [place] Level: modified independence Assistive Device: 2 wheeled walker (FWW) Time to Achieve: 1 wk Goal Status: progressing toward goal Gait Training Goal, [place] Level: modified independence Assistive Device: 2 wheeled walker (FWW) Distance: 300 feet Time to Achieve: 1 wk Goal Status: progressing toward goal Number of Stairs: 16 Time to Achieve: 1 wk Goal Status: not addressed FIM: FIM Transfers Bed/Chair/Wheelchair: 1 Bed/Chair/WC Score Evidence: 1 Two Helpers Toilet: 1 Toilet Transfer Evidence: 1 Two Helpers Tub / Shower: 4 Tub/Shower Score Evidence: 4 Steadying, 5 Verbal Cues, 6 Other Device [place] (grab ba rs) FIM Self Care Eatin Eating Score Evidence: 6 Extra Time Groomin Grooming Score Evidence: 5 Safety Supervison, 5 Verbal Cues Bathin Bathing Score Evidence: 4 Dep 2 of 10 Areas Dressing - Upper Body: 4 Dressing Upper Score Evidence: Laundry Room Attendant Garment (down trunk) Dressing - Lower Body: 3 Dressing Lower Score Evidence: 3 Dep 4-7 Tasks Toiletin Toileting Score Evidence: 5 Safety Supervision, 5 Other Assist FIM Social/Cognition Social Interaction: 6 Social Interaction Score Evidence: 6 Meds For Control Problem Solvin Problem Solving Score Evidence: 6 Extra Time Memory: 5 Memory Score Evidence: 6 Extra Time, 5 Recalls 91-99% FIM Locomotion Walk: 2 Distance Walked (feet): 75 feet Walk Score Evidence: 2 Pt 25-49% Effort/50-149ft FIM Modifier DC Locomotion: walk FIM Modifier Walk Distance: 2 50-149 feet Stairs: 2 Stairs Score Evidence: 2 4-6 Stairs w/Assist FIM Communication Comprehension - Auditory: 6 Comprehension - Visual: 6 Comprehension Score Evidence: 6 Uses Glasses, 6 Needs Extra Time Expression - Vocal: 6 Expression - Non Vocal: 6 Expression Score Evidence: 6 Extra Time Assessment: Pt making modest progress with functional mobility. Today his primary limitati on was right medial thigh pain (likely muscular) causing him to compensate during ambulation . He gets very little right foot clearance during gait even with AFO, however he was able t o improve with cues to flex knee and hip (although this tended to aggravate his thigh pain). He was able to do the scifit for 3 min bouts on level two with an initial desaturation to 82% but then above 90% for the reamaining two 3 min bouts. It cannot be excluded that the 8 2% O2 sat upon initial exercise was an artifact from the pulse oximeter. His AFO will need a djustment to increase PF as he does not reach neutral ankle PF on the right during gait. Pt will benefit from continued skilled physical therapy to improve balance, activity tolerance , flexibility, and strength to increase safety and independence. Physical Therapy Anticipated Discharge Needs are: Home with assistance, Home with Home Health Have the anticipated discharge needs changed? no Post discharge physical therapy recommendation: TBD Plan for next treatment: IRF; 2 x day; RL; 2 WW; progressive functional mobility and safety ; gait training with AFO and skin checks; transfer training. Electronically signed by: Hector Davila, PT, 07/09/2016 12:21 lan of Care - F Nicole briseno RN - 07/09/2016 4:50 AM PDTProblem: Patient Care Overview (Adult) Goal: Care Team Goals & Evaluation PROBLEM-RELATED GOALS: 1. Pt will tolerate level soft chopped foods and thin liquids with no s/s of airway comprom ise by 07/12/16. 2. Pt will be modified independent with ambulation in hallway by 07/12/16. 3. Pt will report a pain level of 1/10 on a pain scale by 07/12/16. 4. Pt will have no s/s of infection by 07/12/16. 5. Mr. Aleman will meet 75% of predicted incentive spirometer goal of 2100 by 07/09/16. STRATEGY TO ACHIEVE GOALS: 1. Pt will participate in ST -Pt will participate in all PT activities. -assess pain level throiugh the day and provide PRN pain medications. Encouraged frequent p osition changes for comfort. - monitor VS and lab results and notify MD as need it. Instruct patient in the use of Incentive Spirometry and/or deep breath and cough. Nursing a nd Respiratory to work together to have patient use every hour while awake. Respiratory to m onitor progress 4 times daily until 75% goal met then turn over to nursing. RESTRAINT-RELATED GOALS: STRATEGIES TO ACHIEVE RESTRAINT GOALS: Outcome: Improving Goal Evaluation: Pt slept very little through noc. Has not been impulsive, using call light appropriately. No difficulty swallowing meds with applesauce. Pt is "C" grade LSO. 2 assist with FWW and ga it belt. lan of Care - Be Leola bardales, SERVICES HOST - 07/08/2016 8:35 PM PDTProblem: Patient Care Overview (Adult) Goal: Care Team Goals & Evaluation PROBLEM-RELATED GOALS: 1. Pt will tolerate level soft chopped foods and thin liquids with no s/s of airway comprom ise by 07/12/16. 2. Pt will be modified independent with ambulation in hallway by 07/12/16. 3. Pt will report a pain level of 1/10 on a pain scale by 07/12/16. 4. Pt will have no s/s of infection by 07/12/16. 5. Mr. Aleman will meet 75% of predicted incentive spirometer goal of 2100 by 07/09/16. STRATEGY TO ACHIEVE GOALS: 1. Pt will participate in ST -Pt will participate in all PT activities. -assess pain level throiugh the day and provide PRN pain medications. Encouraged frequent p osition changes for comfort. - monitor VS and lab results and notify MD as need it. Instruct patient in the use of Incentive Spirometry and/or deep breath and cough. Nursing a nd Respiratory to work together to have patient use every hour while awake. Respiratory to m onitor progress 4 times daily until 75% goal met then turn over to nursing. RESTRAINT-RELATED GOALS: STRATEGIES TO ACHIEVE RESTRAINT GOALS: Goal Evaluation: sao2 95% on 2 lpm nc, bs appear clear, achieves 1250 cc on IS. Has been taking neb tx prio r to bed but tonight states he's doing actually pretty good and doesn't need a neb tx. Under stands he can call should he change his mind during the night. lan of Care - Joselin Ramachandran RN - 07/08/2016 7:04 PM PDTProblem: Patient Care Overview (Adult) Goal: Care Team Goals & Evaluation PROBLEM-RELATED GOALS: 1. Pt will tolerate level soft chopped foods and thin liquids with no s/s of airway comprom ise by 07/12/16. 2. Pt will be modified independent with ambulation in hallway by 07/12/16. 3. Pt will report a pain level of 1/10 on a pain scale by 07/12/16. 4. Pt will have no s/s of infection by 07/12/16. 5. Mr. Aelman will meet 75% of predicted incentive spirometer goal of 2100 by 07/09/16. STRATEGY TO ACHIEVE GOALS: 1. Pt will participate in ST -Pt will participate in all PT activities. -assess pain level throiugh the day and provide PRN pain medications. Encouraged frequent p osition changes for comfort. - monitor VS and lab results and notify MD as need it. Instruct patient in the use of Incentive Spirometry and/or deep breath and cough. Nursing a nd Respiratory to work together to have patient use every hour while awake. Respiratory to m onitor progress 4 times daily until 75% goal met then turn over to nursing. RESTRAINT-RELATED GOALS: STRATEGIES TO ACHIEVE RESTRAINT GOALS: Outcome: Improving Goal Evaluation: Bed/chair alarm at all times Difficulty swallowing, pills with applesauce, c/o them getting stuck and burning/pain upper gastric area - study to be done tomorrow, Stephen becky area And scrotum - zinc cream applie d, becky pad in place, void/stool fww 1per w/ TX, use WC or 2 per gait belt to BR, 2L/o2 NC , LS clear exp wheeze at times, CDB encourage, C-brace, 1 band aid to back CDI, B/L bruising to flanks. Skin tear to right forearm w/ meplix drsg CDI. lan of Care - Dayami Anthony, Speech Pathologist - 07/08/2016 5:01 PM PDT Problem: Patient Care Overview (Adult) Goal: Care Team Goals & Evaluation PROBLEM-RELATED GOALS: 1. Pt will tolerate level soft chopped foods and thin liquids with no s/s of airway comprom ise by 07/12/16. 2. Pt will be modified independent with ambulation in hallway by 07/12/16. 3. Pt will report a pain level of 1/10 on a pain scale by 07/12/16. 4. Pt will have no s/s of infection by 07/12/16. 5. Mr. Aleman will meet 75% of predicted incentive spirometer goal of 2100 by 07/09/16. STRATEGY TO ACHIEVE GOALS: 1. Pt will participate in ST -Pt will participate in all PT activities. -assess pain level throiugh the day and provide PRN pain medications. Encouraged frequent p osition changes for comfort. - monitor VS and lab results and notify MD as need it. Instruct patient in the use of Incentive Spirometry and/or deep breath and cough. Nursing a nd Respiratory to work together to have patient use every hour while awake. Respiratory to m onitor progress 4 times daily until 75% goal met then turn over to nursing. RESTRAINT-RELATED GOALS: STRATEGIES TO ACHIEVE RESTRAINT GOALS: Outcome: Improving Speech Therapy IRF Initial Swallow Eval Note Patient Information Patient Name: Kevin Aleman . Date of : 1945 Age: 70 y.o. History Encounter Diagnoses Code Name Primary? R26.9 Gait abnormality Yes I63.30 Cerebral thrombosis with cerebral infarction (HCC) M46.96 Facet arthritis of lumbar region ([facility]) M21.961 Foot deformity, acquired, right J45.31 Mild persistent asthma with acute exacerbation R09.02 Hypoxia I69.991 Dysphagia as late effect of cerebrovascular disease E78.00 High cholesterol I10 Essential hypertension Past Medical History Diagnosis Date GERD (gastroesophageal reflux disease) Depression High cholesterol Stroke ([facility]) right sided weakness Hypertension Back pain of thoracolumbar region 08/29/2012 Facet arthritis of lumbar region ([facility]) 02/01/2015 Trochanteric bursitis of right hip 02/01/2015 [...] Severe itching Acetaminophen Itching Precautions/Limitations: falls, spinal, orthotic/bracing, corrective lenses, swallowing Summary: Pt seen upright in chair during lunch meal. Brace in place, NC in place at 2 lpm. He states that he has decreased appetite, and that he has felt pain on swallow in mid-chest area, and also occasionally food sticking in his throat prior to this back surgery especial ly with bread and meat items. Oral motor exam reveals missing several molars, and dry mucosa . UNDERWEAR TRIMMER observed the Pt self feed bites of jello, mixed texture soup, and small bites of chick en and pasta. He used a liquid wash to propel the bolus through the pharynx and this helped reduce the sensation of food sticking. Pt rated 8/10 pain when the bolus hit the mid chest a kaleigh, he also grimaced. This occured primarily with solids, not liquids. UNDERWEAR TRIMMER d/w Pt having a full liquid vs a dysphagia mech soft chopped diet and he chose the latter despite the possib ility it could cause more pain. UNDERWEAR TRIMMER also rec he not eat the many crunchy, candy items his fa karen has brought him. He agreed. UNDERWEAR TRIMMER rec'd barium esophagram to determine possible cause of esophageal dysphagia. Scheduled for 8am 07/09/16. Pt aware. Speech language pathology will follow Kevin Aleman Sr. 3 times/wk until discharge from therapy or discharged from the hospital. Speech Language Pathology Anticipated Discharge Needs are: home with family/caregiver Post discharge speech language pathology recommendation: continue UNDERWEAR TRIMMER tx for dysphagia Identified Problems Needing Skilled Intervention: Mild pharyngeal dysphagia Planned Interventions: diet texture modification, compensatory strategies Patient Status/Goals Reflects last filed data of patient status; may be from multiple contributors. FIM FIM Communication Comprehension - Auditory: 5 Comprehension - Visual: 5 Comprehension Score Evidence: 5 Comp 91-99% Expression - Vocal: 6 Expression - Non Vocal: 6 Expression Score Evidence: 6 Mild Diff Complx FIM Social/Cognition Social Interaction: 6 Social Interaction Score Evidence: 6 Meds For Control Problem Solvin Problem Solving Score Evidence: 5 Daily Prbs 91-99% Memory: 5 Memory Score Evidence: 5 Recalls 91-99% NOMS (National Outcome Measures-Standardized) FCM/NOMS Swallowin/CJ PO w/min diet rest, min cues Swallow Recommendations Recommended Solid Texture: dysphagia advanced Recommended Liquid Texture: thin liquids Recommended Medication Delivery: whole pills with thin liquids, crushed pills with puree, i f able Recommended Feeding/Eating Techniques: alternate between small bites and sips of food/liqui d, check mouth frequently for oral residue/pocketing, oral care before and after each meal, maintain upright posture during/after eating for 30 mins, slow rate STG Goals Dysphagia Goal: Pt will tolerate level 3 dysphagia advanced diet and thin liquids with no s /s of airway compromise by 07/08/16. Time to Achieve Goals: 2 days Goal Status: new Start Time: 1208 Stop time: 1233 Time Calculation: 25 minutes Missed Treatment Time: 0 minutes Total Treatment Time: 25 minutes TimedTreatment Code Minutes: 0 minutes Electronically signed by: Dayami Anthony, SPEECH PATHO, 07/08/2016 17:00 lan of Care - Hector Davila, PT - 07/08/2016 4:30 PM PDTProblem: Patient Care Over view (Adult) Goal: Care Team Goals & Evaluation PROBLEM-RELATED GOALS: 1. Pt will tolerate level soft chopped foods and thin liquids with no s/s of airway comprom ise by 07/12/16. 2. Pt will be modified independent with ambulation in hallway by 07/12/16. 3. Pt will report a pain level of 1/10 on a pain scale by 07/12/16. 4. Pt will have no s/s of infection by 07/12/16. 5. Mr. Aleman will meet 75% of predicted incentive spirometer goal of 2100 by 07/09/16. STRATEGY TO ACHIEVE GOALS: 1. Pt will participate in ST -Pt will participate in all PT activities. -assess pain level throiugh the day and provide PRN pain medications. Encouraged frequent p osition changes for comfort. - monitor VS and lab results and notify MD as need it. Instruct patient in the use of Incentive Spirometry and/or deep breath and cough. Nursing a nd Respiratory to work together to have patient use every hour while awake. Respiratory to m onitor progress 4 times daily until 75% goal met then turn over to nursing. RESTRAINT-RELATED GOALS: STRATEGIES TO ACHIEVE RESTRAINT GOALS: Outcome: Unchanged Missed Visit Patient Information Patient Name: Kevin Aleman Sr. Date of : 1945 Age: 70 y.o. The patient was unable to be seen for today's scheduled visit due to patient found down in room. Pt changed to therapies as tolerated and orders for CT scan prevent PM session from o ccuring. Plan: Will attempt PT session tomorrow as appropriate. Electronically signed by: Hector Dvaila, PT, 07/09/2016 7:53 lan of Care - Violetta Lucas, SERVICES HOST - 07/08/2016 3:42 PM PDTProblem: Patient Care Overview ([place] [facility]) Goal: Care Team Goals & Evaluation PROBLEM-RELATED GOALS: 1. Pt will tolerate level 3 dysphagia advanced diet and thin liquids with no s/s of airway compromise by 07/08/16. 2. Pt will be modified independent with ambulation in hallway by 07/12/16. 3. Pt will report a pain level of 1/10 on a pain scale by 07/12/16. 4. Pt will have no s/s of infection by 07/12/16. 5. Mr. Aleman will meet 75% of predicted incentive spirometer goal of 2100 by 07/09/16. STRATEGY TO ACHIEVE GOALS: 1. Pt will participate in ST -Pt will participate in all PT activities. -assess pain level throiugh the day and provide PRN pain medications. Encouraged frequent p osition changes for comfort. - monitor VS and lab results and notify MD as need it. Instruct patient in the use of Incentive Spirometry and/or deep breath and cough. Nursing a nd Respiratory to work together to have patient use every hour while awake. Respiratory to m onitor progress 4 times daily until 75% goal met then turn over to nursing. RESTRAINT-RELATED GOALS: STRATEGIES TO ACHIEVE RESTRAINT GOALS: Outcome: Unchanged Goal Evaluation: Mr. Aleman on 2 Lpm per nasal cannula with O2 saturation 94%. Patient is only achieving 800 /2100 incentive spirometry. Patient alert and seems to follow commands. lan o f Mayte - Hector Davila, PT - 07/08/2016 2:55 PM PDTProblem: Patient Care Overview ([place]) Goal: Care Team Goals & Evaluation PROBLEM-RELATED GOALS: 1. Pt will tolerate level 3 dysphagia advanced diet and thin liquids with no s/s of airway compromise by 07/08/16. 2. Pt will be modified independent with ambulation in hallway by 07/12/16. 3. Pt will report a pain level of 1/10 on a pain scale by 07/12/16. 4. Pt will have no s/s of infection by 07/12/16. STRATEGY TO ACHIEVE GOALS: 1. Pt will participate in ST -Pt will participate in all PT activities. -assess pain level throiugh the day and provide PRN pain medications. Encouraged frequent p osition changes for comfort. - monitor VS and lab results and notify MD as need it. RESTRAINT-RELATED GOALS: STRATEGIES TO ACHIEVE RESTRAINT GOALS: Outcome: Improving Physical Therapy Daily Treatment Note Patient Information Patient Name: Kevin Aleman Sr. Date of : 1945 Age: 70 y.o. Precautions/Limitations: falls, spinal, orthotic/bracing, corrective lenses, swallowing History of Presenting Problem: back and right hip pain. Pt is now s/p L2-4 LAIF; L4-L5 TLI F; L2-L5 posterior instrumentation. PT Diagnosis: Impaired mobility Start Time: 1107 Stop time: 1204 Time Calculation: 57 minutes Missed Treatment Time: 0 minutes Total Treatment Time: 57 minutes TimedTreatment Code Minutes: 57 minutes Subjective: Pt received in room supine in bed, RT performing procedure. Pt agreeable to PT . But he expressed feeling very fatigued after this morning. Objective: Treatment Provided: Bed mobility with cues for log rolling, transfer training, gait trainin g with cues for technique and safety, trialed AFO, LE sustained stretches, Scifit for streng thening and conditioning. Education: PT plan of care, indication for AFO Patient Status/Goals: Reflects last filed data of patient status; may be from multiple contributors. Gait Trialed right AFO with PF stop, heel lift and great toe cushion Level of [place] : contact guard assist Assistive Device: 2 wheeled walker (FWW) Distance (feet): 40 feet Gait Pattern Analysis: 3-point gait Gait Deviations: double stance time increased, step length decreased, stride length decreas ed, hiram decreased, [id number] clearance decreased Transfers Bed-Chair, Level of [place]: contact guard assist Chair-Bed, Level of [place]: contact guard assist [id number], Assistive Device: 2 wheeled walker (FWW) Sit-Stand, Level of [place]: contact guard assist Stand-Sit, Level of [place]: contact guard assist [id number], Assistive Device: 2 wheeled walker (FWW) Safety Issues: balance decreased during turns Impairments: decreased flexibility, muscle tone abnormal, strength decreased, impaired rachna nce, coordination impaired, motor control impaired, pain Bed Mobility Log roll Assistive Device: none Roll Left, Level of [place]: supervision required Supine to Sit, Level of [place]: supervision required Sit to Supine, Level of [place]: supervision required Safety Issues: decreased use of legs for bridging/pushing Impairments: muscle tone abnormal, decreased flexibility, strength decreased, impaired rachna nce, coordination impaired, motor control impaired, pain Balance Sitting Balance: Static: good balance Sitting Balance: Dynamic: fair balance Standing Balance: Static: fair balance Standing Balance: Dynamic: fair balance TUG - Timed Up and Go Timed Up and Go Score (TUG): 70 seconds Therapeutic Exercise Sci fit x 12 min , level 1.5 Bed exercises: (LE Sustained stretching 5 x 30 seconds) Seated exercises: bilateral, ankle pumps, hip abduction/adduction, marching Repetitions: x 10 Functional Exercises: sit to stand x 3 ROM L LE ROM: decreased hip flexion approximately 15% R LE ROM: with knee flexed pt right ankle reaches neutral to 62 degrees; however with knee extended ankle ROM is 16 - 46 degrees Strength L LE Strength: grossly 4/5 R LE Strength: grossly 4/5 Muscle Tone Muscle Tone Assessment Right-Side Extremities Muscle Tone Assessment: moderately, hypertonic, flexor pattern LLE Muscle Tone Assessment: (WNL) STG GOALS Bed Mobility Goal, Activity Type: roll left/roll right, scoot/bridge, supine to sit/sit to supine [place] Level: modified independence Assistive Device: none Time to Achieve: 2 - 3 days Goal Status: progressing toward goal Transfer Training Goal, Activity Type: bed to chair /chair to bed, sit to stand/stand to si t [place] Level: modified independence Assistive Device: 2 wheeled walker (FWW) Time to Achieve: 2 - 3 days Goal Status: progressing toward goal Gait Training Goal, [place] Level: contact guard assist Assistive Device: 2 wheeled walker (FWW) Distance: 150 feet Time to Achieve: 2 - 3 days Goal Status: progressing toward goal Stairs Goal, [place] Level: contact guard assist Assistive Device: (Handrails) Number of Stairs: 12 Time to Achieve: 2 - 3 days Goal Status: not addressed LTG GOALS Bed Mobility Goal, Activity Type: roll left/roll right, scoot/bridge, supine to sit/sit to supine [place] Level: independent Assistive Device: none Time to Achieve: 1 wk Goal Status: progressing toward goal Transfer Training Goal, Activity Type: bed to chair /chair to bed, sit to stand/stand to si t [place] Level: modified independence Assistive Device: 2 wheeled walker (FWW) Time to Achieve: 1 wk Goal Status: progressing toward goal Gait Training Goal, [place] Level: modified independence Assistive Device: 2 wheeled walker (FWW) Distance: 300 feet Time to Achieve: 1 wk Goal Status: progressing toward goal Number of Stairs: 16 Time to Achieve: 1 wk Goal Status: not addressed FIM: FIM Transfers Bed/Chair/Wheelchair: 4 Bed/Chair/WC Score Evidence: 4 Steadying Toilet: 4 Toilet Transfer Evidence: 4 Steadying Tub / Shower: 4 Tub/Shower Score Evidence: 4 Steadying, 5 Verbal Cues, 6 Other Device [place] (grab ba rs) FIM Self Care Eatin Eating Score Evidence: 6 Modified Diet Groomin Grooming Score Evidence: 5 Safety Supervison, 5 Verbal Cues Bathin Bathing Score Evidence: 4 Dep 2 of 10 Areas Dressing - Upper Body: 4 Dressing Upper Score Evidence: Laundry Room Attendant Garment (down trunk) Dressing - Lower Body: 3 Dressing Lower Score Evidence: 3 Dep 4-7 Tasks Toiletin Toileting Score Evidence: 4 Adjust Clothes FIM Social/Cognition Social Interaction: 6 Social Interaction Score Evidence: 6 Meds For Control Problem Solvin Problem Solving Score Evidence: 5 Daily Prbs 91-99% Memory: 5 Memory Score Evidence: 5 Recalls 91-99% FIM Locomotion Walk: 2 Distance Walked (feet): 75 feet Walk Score Evidence: 2 Pt 25-49% Effort/50-149ft FIM Modifier DC Locomotion: walk FIM Modifier Walk Distance: 2 50-149 feet Stairs: 2 Stairs Score Evidence: 2 4-6 Stairs w/Assist FIM Communication Comprehension - Auditory: 5 Comprehension - Visual: 5 Comprehension Score Evidence: 5 Comp 91-99% Expression - Vocal: 6 Expression - Non Vocal: 6 Expression Score Evidence: 6 Mild Diff Complx Assessment: Pt yuni to participate in full therapy session without adverse event. Trialed pt's original AFO with PF stop set a ankle PF neutral. This PT added heel lift to compensat e for pt's increased PF in standing, and cushioning under great toe. Pt demonstrated improv ed heel strike and greater toe clearance with modified AFO, however he continues to walk wit h a 3 point gait pattern and needs reminders to flex hip and knee on right side during swing phase. Pt c/o of pain and tightness in right hip flexors. Pt continues to have adventitio us lung sounds (wheezes) with mild activity that resolve after rest. Continue with progress song gait using AFO adjusting as necessary for most optimal gait pattern. Physical Therapy Anticipated Discharge Needs are: TBD Have the anticipated discharge needs changed? no Post discharge physical therapy recommendation: TBD Plan for next treatment: IRF; 2 x day; Rl; 2WW; progressive gait with AFO; balance training ; stretching and ROM; transfer training Electronically signed by: Hector Davila, PT, 07/08/2016 14:42 lan of Care - B Chin lebron, OT - 07/08/2016 2:06 PM PDTProblem: Patient Care Overview (Adult) Goal: Care Team Goals & Evaluation PROBLEM-RELATED GOALS: 1. Pt will tolerate level 3 dysphagia advanced diet and thin liquids with no s/s of airway compromise by 07/08/16. 2. Pt will be modified independent with ambulation in hallway by 07/12/16. 3. Pt will report a pain level of 1/10 on a pain scale by 07/12/16. 4. Pt will have no s/s of infection by 07/12/16. STRATEGY TO ACHIEVE GOALS: 1. Pt will participate in ST -Pt will participate in all PT activities. -assess pain level throiugh the day and provide PRN pain medications. Encouraged frequent p osition changes for comfort. - monitor VS and lab results and notify MD as need it. RESTRAINT-RELATED GOALS: STRATEGIES TO ACHIEVE RESTRAINT GOALS: Occupational Therapy Daily Treatment Note Patient Information Patient Name: Kevin Aleman . Date of : 1945 Age: 70 y.o. Precautions/Limitations: falls, spinal, orthotic/bracing, corrective lenses, swallowing Start Time: 1310 Stop time: 1340 Time Calculation: 30 minutes Missed Treatment Time: 0 minutes Total Treatment Time: 30 minutes TimedTreatment Code Minutes: 30 minutes Frequency: daily Subjective: unstated Objective: Pt seen for 2nd treat. Pt began with 3# weights with bicep curls, 3 sets of 10 reps. Pt josé miguel cottrell announced need to toilet. Pt transferred to toilet, voided bowel, washed hands, then re turned to bed. Call light in reach. No concerns noted. Education: safety during toileting Treatment Provided: toileting, therex Patient Status/Goals Reflects last filed data of patient status; may be from multiple contributors. ADLs . Toileting, Level of [place]: verbal cues required, contact guard assist, supervision r equired, set up required Toileting Assess/Train, Position: sitting, supported standing Bed Mobility Supine to Sit, Level of [place]: supervision required Sit to Supine, Level of [place]: supervision required Safety Issues: decreased use of legs for bridging/pushing Impairments: strength decreased, impaired balance, coordination impaired, pain, postural co ntrol impaired, motor control impaired Transfers Bed-Chair, Level of [place]: contact guard assist, verbal cues required Chair-Bed, Level of [place]: contact guard assist, verbal cues required [id number], Assistive Device: 2 wheeled walker (FWW) Sit-Stand, Level of [place]: contact guard assist Stand-Sit, Level of [place]: contact guard assist [id number], Assistive Device: 2 wheeled walker (FWW) Toilet, Level of [place]: contact guard assist Toilet, Assistive Device: 2 wheeled walker (FWW), grab bars, seat riser Walk-In Shower, Level of [place]: contact guard assist, set up required, verbal cues r equired, supervision required Walk-in shower, Assistive Device: 2 wheeled walker (FWW), grab bars, shower chair Safety Issues: balance decreased during turns, weight-shifting ability decreased, step reno th decreased Impairments: muscle tone abnormal, sensation decreased, strength decreased, impaired balanc e, pain STG Goals Transfer Training Goal, Activity Type: toilet [place] Level: minimum assist (75% patient effort) Assistive Device: 2 wheeled walker (FWW) Time to Achieve: 5 - 7 days Goal Status: met Grooming Goal, [place] Level: set up required, verbal cues required Adaptive Equipment: none Position: sitting in chair Time to Achieve: 2 - 3 days Goal Status: met Bathing Goal, [place] Level: minimum assist (75% patient effort) Adaptive Equpiment: grab bars, scrub brush, shower chair Time to Achieve: 5 - 7 days Goal Status: continued Toileting Goal, [place] Level: minimum assist (75% patient effort), verbal cues requir ed Assistive Device: toilet paper aid Time to Achieve: 5 - 7 days Goal Status: continued UB Dressing Goal, [place] Level: minimum assist (75% patient effort), verbal cues requ ired Adaptive Equipment: none Time to Achieve: 5 - 7 days Goal Status: continued LB Dressing Goal, [place] Level: moderate assist (50% patient effort) Adaptive Equipment: transmitter engineer in charge, dressing stick, shoe horn, long handled Time to Achieve: 5 - 7 days Goal Status: met LTG Goals Transfer Training Goal, Activity Type: walk-in shower, toilet [place] Level: contact guard assist Assistive Device: 2 wheeled walker (FWW), grab bars Time to Achieve: 5 - 7 days Goal Status: continued Grooming Goal, [place] Level: set up required Adaptive Equipment: none Position: sitting in chair Time to Achieve: 5 - 7 days Goal Status: continued Bathing Goal, [place] Level: set up required, verbal cues required Adaptive Equpiment: grab bars, scrub brush Time to Achieve: 5 - 7 days Goal Status: continued Toileting Goal, [place] Level: supervision required Assistive Device: none Time to Achieve: 5 - 7 days Goal Status: continued UB Dressing Goal, [place] Level: set up required Adaptive Equipment: none Time to Achieve: 5 - 7 days Goal Status: continued LB Dressing Goal, [place] Level: verbal cues required, set up required Adaptive Equipment: transmitter engineer in charge, laces, elastic, shoe horn, long handled, sock-aid Time to Achieve: 5 - 7 days Goal Status: continued FIM: FIM Transfers Bed/Chair/Wheelchair: 4 Bed/Chair/WC Score Evidence: 4 Steadying Toilet: 4 Toilet Transfer Evidence: 4 Steadying Tub / Shower: 4 Tub/Shower Score Evidence: 4 Steadying, 5 Verbal Cues, 6 Other Device [place] (grab ba rs) FIM Self Care Eatin Eating Score Evidence: 6 Modified Diet Groomin Grooming Score Evidence: 5 Safety Supervison, 5 Verbal Cues Bathin Bathing Score Evidence: 4 Dep 2 of 10 Areas Dressing - Upper Body: 4 Dressing Upper Score Evidence: Laundry Room Attendant Garment (down trunk) Dressing - Lower Body: 3 Dressing Lower Score Evidence: 3 Dep 4-7 Tasks Toiletin Toileting Score Evidence: 4 Adjust Clothes FIM Social/Cognition Social Interaction: 6 Social Interaction Score Evidence: 6 Meds For Control Problem Solvin Problem Solving Score Evidence: 5 Daily Prbs 91-99% Memory: 5 Memory Score Evidence: 5 Recalls 91-99% FIM Locomotion Walk: 2 Distance Walked (feet): 75 feet Walk Score Evidence: 2 Pt 25-49% Effort/50-149ft FIM Modifier DC Locomotion: walk FIM Modifier Walk Distance: 2 50-149 feet Stairs: 2 Stairs Score Evidence: 2 4-6 Stairs w/Assist FIM Communication Comprehension - Auditory: 5 Comprehension - Visual: 5 Comprehension Score Evidence: 5 Comp 91-99% Expression - Vocal: 6 Expression - Non Vocal: 6 Expression Score Evidence: 6 Mild Diff Complx Assessment: pt with pain and fatigue during therapy session this afternoon, requiring extra time for resting Occupational Therapy Anticipated Discharge Needs are: home with home health Have the anticipated discharge needs changed? no Post discharge occupational therapy recommendation: TBD Plan for next treatment: 1P. DB. Dress and groom. Electronically signed by: Chin Kelly OT, 07/08/2016 14:04 lan of Care - Chin Kelly OT - 07/08/2016 10:51 AM PDTProblem: Patient Care Overview (Adult) Goal: Care Team Goals & Evaluation PROBLEM-RELATED GOALS: 1. Pt will tolerate level 3 dysphagia advanced diet and thin liquids with no s/s of airway compromise by 07/08/16. 2. Pt will be modified independent with ambulation in hallway by 07/12/16. 3. Pt will report a pain level of 1/10 on a pain scale by 07/12/16. 4. Pt will have no s/s of infection by 07/12/16. STRATEGY TO ACHIEVE GOALS: 1. Pt will participate in ST -Pt will participate in all PT activities. -assess pain level throiugh the day and provide PRN pain medications. Encouraged frequent p osition changes for comfort. - monitor VS and lab results and notify MD as need it. RESTRAINT-RELATED GOALS: STRATEGIES TO ACHIEVE RESTRAINT GOALS: Occupational Therapy Daily Treatment Note Patient Information Patient Name: Kevin Aleman Sr. Date of : 1945 Age: 70 y.o. Precautions/Limitations: falls, spinal, orthotic/bracing, corrective lenses, swallowing Start Time: 0845 Stop time: 0945 Time Calculation: 60 minutes Missed Treatment Time: 0 minutes Total Treatment Time: 60 minutes TimedTreatment Code Minutes: 60 minutes Frequency: daily Subjective: unstated Objective: Pt seen for dress and groom. Pt transferred to EOB from supine donned pants using transmitter engineer in charge, vcs to maintain mobility precautions. Pt then doffed socks, donned slippers using long-velazquez dled shoe horn. Pt transferred to bathroom with portable O2 at 2 lpm. Pt sat on 4WW for re st break, then stood, performed oral hygiene and grooming. Pt then returned to sit. Pt the n began walking to therapy gym. Pt walking approx. 50' then requiring rest break. Pt walke d to therapy gym, sat in chair. Pt fatigued, so walked back to bedroom with 1 rest break. Pt sat EOB, doffed shoes, then returned to supine. Call light in reach, no concerns noted. O2 sats taken periodically throughout treat, at or above 92% throughout.. Education: safety during grooming, transfers Treatment Provided: self care grooming, functional mobility Patient Status/Goals Reflects last filed data of patient status; may be from multiple contributors. ADLs . . LB, Level of [place]: minimum assist (75% patient effort) Assistive Device: transmitter engineer in charge, long-handled shoe horn LB Dressing Assess/Train, Position: sitting, supported standing LB Dressing Assess/Train, Impairments: impaired balance, pain . Grooming, Level of [place]: supervision required, set up required Grooming Assess/Train, Position: sitting, supported standing Grooming Assess/Train, Impairments: strength decreased, pain Bed Mobility Supine to Sit, Level of [place]: supervision required Sit to Supine, Level of [place]: supervision required Safety Issues: decreased use of legs for bridging/pushing Impairments: strength decreased, impaired balance, coordination impaired, pain, postural co ntrol impaired, motor control impaired Transfers Bed-Chair, Level of [place]: contact guard assist, verbal cues required Chair-Bed, Level of [place]: contact guard assist, verbal cues required [id number], Assistive Device: 2 wheeled walker (FWW) Sit-Stand, Level of [place]: contact guard assist Stand-Sit, Level of [place]: contact guard assist [id number], Assistive Device: 2 wheeled walker (FWW) Safety Issues: balance decreased during turns, weight-shifting ability decreased, step reno th decreased Impairments: muscle tone abnormal, sensation decreased, strength decreased, impaired balanc e, pain STG Goals Transfer Training Goal, Activity Type: toilet [place] Level: minimum assist (75% patient effort) Assistive Device: 2 wheeled walker (FWW) Time to Achieve: 5 - 7 days Goal Status: continued Grooming Goal, [place] Level: set up required, verbal cues required Adaptive Equipment: none Position: sitting in chair Time to Achieve: 2 - 3 days Goal Status: met Bathing Goal, [place] Level: minimum assist (75% patient effort) Adaptive Equpiment: grab bars, scrub brush, shower chair Time to Achieve: 5 - 7 days Goal Status: continued Toileting Goal, [place] Level: minimum assist (75% patient effort), verbal cues requir ed Assistive Device: toilet paper aid Time to Achieve: 5 - 7 days Goal Status: continued UB Dressing Goal, [place] Level: minimum assist (75% patient effort), verbal cues requ ired Adaptive Equipment: none Time to Achieve: 5 - 7 days Goal Status: continued LB Dressing Goal, [place] Level: moderate assist (50% patient effort) Adaptive Equipment: transmitter engineer in charge, dressing stick, shoe horn, long handled Time to Achieve: 5 - 7 days Goal Status: met LTG Goals Transfer Training Goal, Activity Type: walk-in shower, toilet [place] Level: contact guard assist Assistive Device: 2 wheeled walker (FWW), grab bars Time to Achieve: 5 - 7 days Goal Status: continued Grooming Goal, [place] Level: set up required Adaptive Equipment: none Position: sitting in chair Time to Achieve: 5 - 7 days Goal Status: continued Bathing Goal, [place] Level: set up required, verbal cues required Adaptive Equpiment: grab bars, scrub brush Time to Achieve: 5 - 7 days Goal Status: continued Toileting Goal, [place] Level: supervision required Assistive Device: none Time to Achieve: 5 - 7 days Goal Status: continued UB Dressing Goal, [place] Level: set up required Adaptive Equipment: none Time to Achieve: 5 - 7 days Goal Status: continued LB Dressing Goal, [place] Level: verbal cues required, set up required Adaptive Equipment: transmitter engineer in charge, laces, elastic, shoe horn, long handled, sock-aid Time to Achieve: 5 - 7 days Goal Status: continued FIM: FIM Transfers Bed/Chair/Wheelchair: 4 Bed/Chair/WC Score Evidence: 4 Steadying Toilet: 4 Toilet Transfer Evidence: 4 Steadying Tub / Shower: 4 Tub/Shower Score Evidence: 4 Steadying, 5 Verbal Cues, 6 Other Device [place] (grab ba rs) FIM Self Care Eatin Eating Score Evidence: 6 Modified Diet Groomin Grooming Score Evidence: 5 Safety Supervison, 5 Verbal Cues Bathin Bathing Score Evidence: 4 Dep 2 of 10 Areas Dressing - Upper Body: 4 Dressing Upper Score Evidence: Laundry Room Attendant Garment (down trunk) Dressing - Lower Body: 3 Dressing Lower Score Evidence: 3 Dep 4-7 Tasks Toiletin Toileting Score Evidence: 4 Adjust Clothes FIM Social/Cognition Social Interaction: 6 Social Interaction Score Evidence: 6 Meds For Control Problem Solvin Problem Solving Score Evidence: 5 Daily Prbs 91-99% Memory: 5 Memory Score Evidence: 5 Recalls 91-99% FIM Locomotion Walk: 2 Distance Walked (feet): 75 feet Walk Score Evidence: 2 Pt 25-49% Effort/50-149ft FIM Modifier DC Locomotion: walk FIM Modifier Walk Distance: 2 50-149 feet Stairs: 2 Stairs Score Evidence: 2 4-6 Stairs w/Assist FIM Communication Comprehension - Auditory: 5 Comprehension - Visual: 5 Comprehension Score Evidence: 5 Comp 91-99% Expression - Vocal: 6 Expression - Non Vocal: 6 Expression Score Evidence: 6 Mild Diff Complx Assessment: Pt progressing in ADL performance, still with fatigue and requiring rest breaks with activity Occupational Therapy Anticipated Discharge Needs are: home with home health Have the anticipated discharge needs changed? no Post discharge occupational therapy recommendation: TBD Plan for next treatment: 1P. DB. 2nd treat, strengthening, activity tolerance Electronically signed by: Chin Kelly OT, 07/08/2016 10:50 atient Care Confere nce - Eduard Young MD - 07/08/2016 9:14 AM [facility] Individualized Overall Plan of Care Weekly Team Conference Patient Identification Kevin Aleman Sr. is a 70 y.o. male. : 1945 Admit Date: 07/06/2016 Attending Provider: Eduard Young MD Primary Care Physician: Almas Licea Admitting Diagnosis: lumbar spondylolisthesis , s/p fusion L2-5 Team Conference Date: 07/09/2016 Medical Prognosis and need for Rehabilitation Physician oversight and anticipated Rehabilit ation Physician interventions: [place] for functional progress is good. Physician Summary: Mr. Aleman is a 70 year-old right-handed [...] doing well with therapies #Rehabilitation Medicine Recommendations: --Continue PT for strength, endurance, ROM, ambulation, balance --Continue OT for UE strengthening, functioning, and ROM; and training in ADLs, IADLs --Continue Speech therapy (UNDERWEAR TRIMMER) to follow for for cognitive/communication evaluation, Had b arium esophagram today which demonstrated evidence of achalasia, will consult GI tomorrow #SOB - new right basilar opacity, hospitalist team assisting PNA vs atelectasis. Wheezing seems more upper respiratory as lungs sound clear -Continue clindamycin -Continue ISS minimum qshift -Encourage patient to cough when wheezing if upper respiratory this should help to clear #L2-5 anterior and posterior fusion - Stable hardware on XR today -Continue PRN oxycodone -C-brace precautions #Stroke presumably left MCA based [...] baclofen 10mg BID, with up-titration to 10mg TI D early next week -Continue Atorvastatin 40mg daily -Start baclofen 10mg BID, and increase to 10mg TID in three days if t olerated -Continue losartan 50mg daily -Continue warfarin, INR 1.08 today -LMWH until therapeutic #rash on groin and face with satellite lesions -Nystatin powder for groin -trial powder for lip, but if no improvement will trial steroid cre am or ketoconazole. #Fall - on 07/09occurred this afternoon, patient had multiple falls at home which is why we admitted him. Unfortunately the fall was unwitnessed and he was on the ground for some ti me so the etiology is not clear. The fall occurred after he fell out of bed, there was no bed alarm on. Exam reassuring today. -STAT CT head - no acute changes -XR L-spine - no hardware changes, stable -bed alarm on at all times, if patient continues to be impulsive wi ll consider a sitter #Retroperotineal fibrosis - stable. -Continue Cellcept 500mg qday for now and will get clarification fo r PCP on why he is taking it. #History of depression - stable -Continue citalopram 40mg daily #Hypokalemia - continued -Continue potassium chloride 20meq BID -Repeat BMP tomorrow Code Status: Full Code Rehabilitation Nursing Summary: Alert, oriented x4. Poor sleep last night, wasn't impulsiv e, used call light appropriately. Occasiional difficulty swallowing meds with applesauce. LSO 'C' grade precautions in place. 2-person assist with FWW and gait bel. Zinc cream for pe ri and scrotal redness. Miplex dressing to right forearm skin tear. Blood pressure range 104 /64-172/84. Potassion level 2.8 on 07/08, receiving potassium supplement 2x/day. Last bowel movement 07/08. Safety Management: Elopement/wander risk: No General Risk Interventions: Cognitive Impairment Interventions: Altered Eliminations/Toileting interventions: Safety Management Goal: Pt will remain free of falls during stay in inpatient rehab. Pain Management: Pain ratin-7/10. Pain meds effective Pain Management Goal: Pt will report pain < 4/10 Skin Management: Lb Score: 19 Skin Management Goal: No s/s infection will develop to surgical sites and no new skin break down will occur. Bladder Management: FIM BladderScore: 5; Evidence: 5 Nursing Empties # Bladder accidents last 7 days: 1 Bladder Management Goal: Pt will remain continent of urine without accidents. Bowel Management: FIM Bowel Score: 6; Evidence: 6 Medication [place] # Bowel accidents last 7 days: 1 Bowel Management Goal: Pt will have a BM at least every other day Nutrition Management: Mobility Summary: Pt is progressing with all mobility and is currently supervision with be d mobility and transfers, CGA for gait at ranges of 50-75 feet, and minimum assistance with stairs. He's been participating in therapy to date, however he's been fatiguing quickly wit h c/o of SOB and hip/back pain. Pt also with adventitious lung sounds and increased respirat ions with mild activity. His greatest limitation to progression is right LE spasticity causi ng pain and dysfunction. It interferes with normal gait and reduces his ability to walk gre ater distances. Trailed his old AFO today with a new heel lift and padding for his great to e and he demonstrated improved gait pattern with reduced knee hyperextension, but continues to have 3-point pattern, reduced speed and step length. Family support is still uncertain as my only interaction with his was brief. He will benefit from progressive functional t raining to improve safety and independence. Transfers FIM Bed/Chair/Wheelchair Score: 1; Evidence:1 Two Helpers FIM Toilet Transfer Score: 1; Evidence: 1 Two Helpers FIM Tub/Shower Transfer Score: 4; Evidence: 4 Steadying, 5 Verbal Cues, 6 Other Device [place] (grab bars) Locomotion FIM Walk Score: 2; Evidence: 2 Pt 25-49% Effort/50-149ft FIM Distance Walked(feet): 75 feet FIM Stairs Score :2; Evidence: 2 4-6 Stairs w/Assist PT GOALS STG GOALS Bed Mobility Goal, Activity Type: roll left/roll right, scoot/bridge, supine to sit/sit to supine [place] Level: modified independence Assistive Device: none Time to Achieve: 2 - 3 days Goal Status: progressing toward goal Transfer Training Goal, Activity Type: bed to chair /chair to bed, sit to stand/stand to si t [place] Level: modified independence Assistive Device: 2 wheeled walker (FWW) Time to Achieve: 2 - 3 days Goal Status: progressing toward goal Gait Training Goal, [place] Level: contact guard assist Assistive Device: 2 wheeled walker (FWW) Distance: 150 feet Time to Achieve: 2 - 3 days Goal Status: progressing toward goal Stairs Goal, [place] Level: contact guard assist Assistive Device: (Handrails) Number of Stairs: 12 Time to Achieve: 2 - 3 days Goal Status: not addressed LTG GOALS Bed Mobility Goal, Activity Type: roll left/roll right, scoot/bridge, supine to sit/sit to supine [place] Level: independent Assistive Device: none Time to Achieve: 1 wk Goal Status: progressing toward goal Transfer Training Goal, Activity Type: bed to chair /chair to bed, sit to stand/stand to si t [place] Level: modified independence Assistive Device: 2 wheeled walker (FWW) Time to Achieve: 1 wk Goal Status: progressing toward goal Gait Training Goal, [place] Level: modified independence Assistive Device: 2 wheeled walker (FWW) Distance: 300 feet Time to Achieve: 1 wk Goal Status: progressing toward goal Number of Stairs: 16 Time to Achieve: 1 wk Goal Status: not addressed Self Care Summary: Pt is progressing in self care ADLs and functional mobility. He is curr ently requiring generally minimal assist on his ADL tasks, depending on pt's fatigue and royce n at the time. He is receptive to all education concerns regarding spinal mobility precauti ons during ADLs and mobility-related activities. Pt does fatigue following standing activit ies and requires rest breaks. Nevertheless, he is progressing well in all his OT-related ac tivities. FIM Eating Score: 6; Evidence: FIM Grooming Score: 5; Evidence: 5 Safety Supervison, 5 Verbal Cues FIM Bathing Score: 4; Evidence: 4 Dep 2 of 10 Areas FIM Dressing Upper Body Score: 4; Evidence:Laundry Room Attendant Garment (down trunk) FIM Dressing Lower Body Score: 3; Evidence:3 Dep 4-7 Tasks FIM Toileting Score: 4; Evidence:4 Adjust Clothes OT Goals Short Term Goals OT Short Term Goals: UB dressing, LB dressing, grooming, transfers, bathing, toileting Transfer Training Goal, Activity Type: toilet [place] Level: minimum assist (75% patient effort) Assistive Device: 2 wheeled walker (FWW) Time to Achieve: 5 - 7 days Goal Status: continued Grooming Goal, [place] Level: set up required, verbal cues required Adaptive Equipment: none Position: sitting in chair Time to Achieve: 2 - 3 days Goal Status: met Bathing Goal, [place] Level: minimum assist (75% patient effort) Adaptive Equpiment: grab bars, scrub brush, shower chair Time to Achieve: 5 - 7 days Goal Status: continued Toileting Goal, [place] Level: minimum assist (75% patient effort), verbal cues requir ed Assistive Device: toilet paper aid Time to Achieve: 5 - 7 days Goal Status: continued UB Dressing Goal, [place] Level: minimum assist (75% patient effort), verbal cues requ ired Adaptive Equipment: none Time to Achieve: 5 - 7 days Goal Status: continued LB Dressing Goal, [place] Level: moderate assist (50% patient effort) Adaptive Equipment: transmitter engineer in charge, dressing stick, shoe horn, long handled Time to Achieve: 5 - 7 days Goal Status: met Fci Goals OT Fci Goals: transfers, grooming, bathing, toileting, UB dressing, LB dressing Transfer Training Goal, Activity Type: walk-in shower, toilet [place] Level: contact guard assist Assistive Device: 2 wheeled walker (FWW), grab bars Time to Achieve: 5 - 7 days Goal Status: continued Grooming Goal, [place] Level: set up required Adaptive Equipment: none Position: sitting in chair Time to Achieve: 5 - 7 days Goal Status: continued Bathing Goal, [place] Level: set up required, verbal cues required Adaptive Equpiment: grab bars, scrub brush Time to Achieve: 5 - 7 days Goal Status: continued Toileting Goal, [place] Level: supervision required Assistive Device: none Time to Achieve: 5 - 7 days Goal Status: continued UB Dressing Goal, [place] Level: set up required Adaptive Equipment: none Time to Achieve: 5 - 7 days Goal Status: continued LB Dressing Goal, [place] Level: verbal cues required, set up required Adaptive Equipment: transmitter engineer in charge, laces, elastic, shoe horn, long handled, sock-aid Time to Achieve: 5 - 7 days Goal Status: continued Cognition/Communication Summary: A/Ox4. Wants to go home. UNDERWEAR TRIMMER targeting swallow. Problem Solving Score: 6; Evidence: 6 Extra Time Memory Score: 5; Evidence: 6 Extra Time, 5 Recalls 91-99% Comprehension/AuditoryScore: 6; Evidence: 6 Uses Glasses, 6 Needs Extra Time Verbal Expression Score: 6; Evidence: 6 Extra Time Social Interaction Score: 6; Evidence:6 Meds For Control Dysphagia/Swallow: Decreased appetite. Suspected esophageal dysphagia contributing to th is. Mild pharyngeal dysphagia possible as well and exacerbated by reports of dry mouth. UNDERWEAR TRIMMER rec'd barium esophagram to rule out esophageal dysphagia. UNDERWEAR TRIMMER Goals Short Term Goals UNDERWEAR TRIMMER Short Term Goals: dysphagia Dysphagia Goal: Pt will tolerate level 3 dysphagia advanced diet and thin liquids with no s /s of airway compromise by 07/08/16. Time to Achieve Goals: 2 days Goal Status: new Leisure/Community: Therapeutic day pass appropriate: no Education Caregiver training initiated: No Sexuality education initiated: NA Other education initiated (see Patient Education activity): n/a Recommended Discharge Equipment , 2 wheeled walker (FWW), shower chair, hand held shower head, transmitter engineer in charge, sock aide, long h andled shoe horn, long handled sponge Barriers to Discharge Barriers to Discharge: Pain and generalized weakness Barrier Resolution Plan: Pain managed for the home environment, stable on his feet with shakira jones teaching prior to paitient being discharged. Post-Discharge Plan Setting: Home with his in their home in [place], [place] Level of Assist Recommended for Discharge: modified independent for mobility and transfers and modified independent to minimal assist for ADLs Anticipate post discharge services: Home health nursing and therapy, temporary handicap pa rking sticker Prosthetics/Orthotics therapeutic interventions recommended: for adjustment of AFO Admission Date: 07/06/2016 ELOS: 14 days Projected DC Date: 07/19/16 Team Goals: 1. Mod I mobility 2. Mod I transfers 3. Mod I ADLs 4. Improved spasticity 5. Improved swallowing Participants: MD: Eduard Young MD RN: EMMANUEL Montiel PT: Hector Davila DPT, PT OT: Chin Kelly OTRL UNDERWEAR TRIMMER: Inocencia Anthony MS, CCC-UNDERWEAR TRIMMER CM/SW: KESHAV Crockett Following interdisciplinary discussion and planning, I fully agree with the above. lan of Care - ese, Court Naik RN - 07/08/2016 5:33 AM PDTProblem: Patient Care Overview (Adult) Goal: Care Team Goals & Evaluation PROBLEM-RELATED GOALS: 1. Pt will tolerate level 3 dysphagia advanced diet and thin liquids with no s/s of airway compromise by 07/08/16. 2. Pt will be modified independent with ambulation in hallway by 07/12/16. 3. Pt will report a pain level of 1/10 on a pain scale by 07/12/16. 4. Pt will have no s/s of infection by 07/12/16. STRATEGY TO ACHIEVE GOALS: 1. Pt will participate in ST -Pt will participate in all PT activities. -assess pain level throiugh the day and provide PRN pain medications. Encouraged frequent p osition changes for comfort. - monitor VS and lab results and notify MD as need it. RESTRAINT-RELATED GOALS: STRATEGIES TO ACHIEVE RESTRAINT GOALS: Outcome: Improving Goal Evaluation: Patient has remained alert and oriented during the night. He continues to call for assist o n occasion, but will attempt to get up himself without waiting for someone to come in. Durin g the shift the patient had some trouble swallowing his antibiotic pill and he reported that it felt stuck and wouldn't go down. He was upright when taking his meds. Pt was given apple sauce and more sips of water, but several hours after that he still reported it felt sore in the epigastric region. He did report some relief after maalox and tums. Other pills to be g iven with applesauce tonight. Pt was only having small stools and was given multiple laxativ es tonight. His stools are now loose. Patient states that he does continue to have pain in h is back at a 5/10 and states most of the time the pain medication just takes the edge off. H e refuses to take more than one at a time however. There are no s/s infection to the incisio n site. lan of Care - [facility] Holly brady RRT - 07/08/2016 4:18 AM PDTProblem: Patient Care Overview (Adult) Goal: Care Team Goals & Evaluation PROBLEM-RELATED GOALS: 1. Pt will tolerate level 3 dysphagia advanced diet and thin liquids with no s/s of airway compromise by 07/08/16. 2. Pt will be modified independent with ambulation in hallway by 07/12/16. 3. Pt will report a pain level of 1/10 on a pain scale by 07/12/16. 4. Pt will have no s/s of infection by 07/12/16. STRATEGY TO ACHIEVE GOALS: 1. Pt will participate in ST -Pt will participate in all PT activities. -assess pain level throiugh the day and provide PRN pain medications. Encouraged frequent p osition changes for comfort. - monitor VS and lab results and notify MD as need it. RESTRAINT-RELATED GOALS: STRATEGIES TO ACHIEVE RESTRAINT GOALS: Goal Evaluation: Kevin was on room air until approximately 0100 when nursing placed him on 2lpm for SPO2 of 87%. PRN breathing treatment given before sleep as requested. His breath sounds appeared clear at that time. Satnam is achieved 800 ml of his 2150 ml goal on the incentive spiromet er. lan of Care - Michael Francis RN - 07/07/2016 8:09 PM PDTProblem: Patient Care Overview (Adult) Goal: Care Team Goals & Evaluation PROBLEM-RELATED GOALS: 1. Pt will tolerate level 3 dysphagia advanced diet and thin liquids with no s/s of airway compromise by 07/08/16. 2. Pt will be modified independent with ambulation in hallway by 07/12/16. 3. Pt will report a pain level of 1/10 on a pain scale by 07/12/16. 4. Pt will have no s/s of infection by 07/12/16. STRATEGY TO ACHIEVE GOALS: 1. Pt will participate in ST -Pt will participate in all PT activities. -assess pain level throiugh the day and provide PRN pain medications. Encouraged frequent p osition changes for comfort. - monitor VS and lab results and notify MD as need it. RESTRAINT-RELATED GOALS: STRATEGIES TO ACHIEVE RESTRAINT GOALS: Outcome: Declining Goal Evaluation: 1. Tolerating a dysphagia diet well but still c/o poor appetite. Encouraged to increase fl uid intake. 2. Pt still requiring one person SBA with ambulation to the bathroom and with transfers. 3. Pt still c/o low back and right hip pain, medicated with one oxycodone, flexeril and iliana apentin today. Pt denies numbness, muscle strength 5/5. 4. No s/s of infection noted today, VSS, remains afebrile. Band aids to low back c/d/i, no redness of drainage noted. Bed alarm in place d/t derrick risk for falls. lan of Care - Yadiel Hall, SERVICES HOST - 07/07/2016 6:39 PM PDTProblem: Patient Care Overview (Adult) Goal: Care Team Goals & Evaluation PROBLEM-RELATED GOALS: 1. Pt will tolerate level 3 dysphagia advanced diet and thin liquids with no s/s of airway compromise by 07/08/16. 2. Pt will be modified independent with ambulation in hallway by 07/12/16. 3. Pt will report a pain level of 1/10 on a pain scale by 07/12/16. 4. Pt will have no s/s of infection by 07/12/16. STRATEGY TO ACHIEVE GOALS: 1. Pt will participate in ST -Pt will participate in all PT activities. -assess pain level throiugh the day and provide PRN pain medications. Encouraged frequent p osition changes for comfort. - monitor VS and lab results and notify MD as need it. RESTRAINT-RELATED GOALS: STRATEGIES TO ACHIEVE RESTRAINT GOALS: Outcome: Improving Goal Evaluation: Pt requested a prn neb tx today after ambulating to shower and back. Lungs sound clear. SpO2: 91 % on room air. Uses IS when encouraged, but not very effectively (les s than 50% of goal. lan of Care - Hector Cunha, PT - 07/07/2016 6:33 PM PDTProblem: Patient Care Overview (Adult) Goal: Care Team Goals & Evaluation PROBLEM-RELATED GOALS: 1. Pt will tolerate level 3 dysphagia advanced diet and thin liquids with no s/s of airway compromise by 07/08/16. 2. Pt will be modified independent with ambulation in hallway by 07/12/16. 3. Pt will report a pain level of 1/10 on a pain scale by 07/12/16. 4. Pt will have no s/s of infection by 07/12/16. STRATEGY TO ACHIEVE GOALS: 1. Pt will participate in ST -Pt will participate in all PT activities. -assess pain level throiugh the day and provide PRN pain medications. Encouraged frequent p osition changes for comfort. - monitor VS and lab results and notify MD as need it. RESTRAINT-RELATED GOALS: STRATEGIES TO ACHIEVE RESTRAINT GOALS: Outcome: Improving Physical Therapy Daily Treatment Note Patient Information Patient Name: Kevin Aleman . Date of : 1945 Age: 70 y.o. Precautions/Limitations: falls, spinal, orthotic/bracing, corrective lenses, swallowing History of Presenting Problem: back and right hip pain. Pt is now s/p L2-4 LAIF; L4-L5 TLI F; L2-L5 posterior instrumentation. PT Diagnosis: Impaired mobility Start Time: 1440 Stop time: 1510 Time Calculation: 30 minutes Missed Treatment Time: 0 minutes Total Treatment Time: 30 minutes TimedTreatment Code Minutes: 30 minutes Subjective: Pt received in room supine in bed, spouse present. Pt agreeable to PT. Objective: Treatment Provided: Bed mobility, gait training with emphasis on stride length and even gay p length; transfer training. Education: PT plan of care, indication for AFO. Patient Status/Goals: Reflects last filed data of patient status; may be from multiple contributors. Gait level surfaces. As pt walks his right foot spasticity increases and causes hiim pain. Level of [place] : contact guard assist Assistive Device: 2 wheeled walker (FWW) Distance (feet): 75 feet Gait Pattern Analysis: 3-point gait Gait Deviations: hiram decreased, step length decreased, stride length decreased, toe-to- floor clearance decreased Stairs Number of Stairs: 4 Handrail Location: both sides Level of [place]: contact guard assist Assistive Device: (Handrails) Technique Used: step to step (ascending), step to step (descending) Safety Issues: balance decreased during turns (Right knee buckling on descent) Impairments: muscle tone abnormal, decreased flexibility, sensation decreased, strength dec reased, impaired balance, coordination impaired, motor control impaired, pain Transfers Bed-Chair, Level of [place]: minimum assist (75% patient effort) Chair-Bed, Level of [place]: minimum assist (75% patient effort) [id number], Assistive Device: 2 wheeled walker (FWW) Sit-Stand, Level of [place]: contact guard assist Stand-Sit, Level of [place]: contact guard assist [id number], Assistive Device: 2 wheeled walker (FWW) Safety Issues: balance decreased during turns, weight-shifting ability decreased, step reno th decreased Impairments: muscle tone abnormal, sensation decreased, strength decreased, impaired balanc e, pain Bed Mobility Assistive Device: bed rails Roll Left, Level of [place]: supervision required Supine to Sit, Level of [place]: supervision required Sit to Supine, Level of [place]: supervision required Safety Issues: decreased use of legs for bridging/pushing Impairments: strength decreased, impaired balance, coordination impaired, pain, postural co ntrol impaired, motor control impaired Balance Sitting Balance: Static: good balance Sitting Balance: Dynamic: fair balance Standing Balance: Static: fair balance Standing Balance: Dynamic: fair balance TUG - Timed Up and Go Timed Up and Go Score (TUG): 70 seconds Therapeutic Exercise Functional Exercises: sit to stand x 3 ROM L LE ROM: decreased hip flexion approximately 15% R LE ROM: with knee flexed pt right ankle reaches neutral to 62 degrees; however with knee extended ankle ROM is 16 - 46 degrees Strength L LE Strength: grossly 4/5 R LE Strength: grossly 4/5 Muscle Tone Muscle Tone Assessment Right-Side Extremities Muscle Tone Assessment: moderately, hypertonic, flexor pattern LLE Muscle Tone Assessment: (WNL) STG GOALS Bed Mobility Goal, Activity Type: roll left/roll right, scoot/bridge, supine to sit/sit to supine [place] Level: modified independence Assistive Device: none Time to Achieve: 2 - 3 days Goal Status: progressing toward goal Transfer Training Goal, Activity Type: bed to chair /chair to bed, sit to stand/stand to si t [place] Level: modified independence Assistive Device: 2 wheeled walker (FWW) Time to Achieve: 2 - 3 days Goal Status: progressing toward goal Gait Training Goal, [place] Level: contact guard assist Assistive Device: 2 wheeled walker (FWW) Distance: 150 feet Time to Achieve: 2 - 3 days Goal Status: progressing toward goal Stairs Goal, [place] Level: contact guard assist Assistive Device: (Handrails) Number of Stairs: 12 Time to Achieve: 2 - 3 days Goal Status: not addressed LTG GOALS Bed Mobility Goal, Activity Type: roll left/roll right, scoot/bridge, supine to sit/sit to supine [place] Level: independent Assistive Device: none Time to Achieve: 1 wk Goal Status: progressing toward goal Transfer Training Goal, Activity Type: bed to chair /chair to bed, sit to stand/stand to si t [place] Level: modified independence Assistive Device: 2 wheeled walker (FWW) Time to Achieve: 1 wk Goal Status: progressing toward goal Gait Training Goal, [place] Level: modified independence Assistive Device: 2 wheeled walker (FWW) Distance: 300 feet Time to Achieve: 1 wk Goal Status: progressing toward goal Number of Stairs: 16 Time to Achieve: 1 wk Goal Status: not addressed FIM: FIM Transfers Bed/Chair/Wheelchair: 4 Bed/Chair/WC Score Evidence: 4 Steadying Toilet: 4 Toilet Transfer Evidence: 4 Steadying, 6 Amb Device [place], 6 Grab Bar [place], 5 Verbal Cues, 5 Safety Supervision Tub / Shower: 4 Tub/Shower Score Evidence: 4 Steadying, 5 Verbal Cues, 6 Other Device [place] (grab ba rs) FIM Self Care Eatin Eating Score Evidence: 6 Modified Diet, 6 Extra Time Groomin Grooming Score Evidence: 5 Get Items, 5 Safety Supervison, 5 Verbal Cues Bathin Bathing Score Evidence: 4 Dep 2 of 10 Areas Dressing - Upper Body: 4 Dressing Upper Score Evidence: Laundry Room Attendant Garment (down trunk) Dressing - Lower Body: 3 Dressing Lower Score Evidence: 3 Dep 4-7 Tasks Toiletin Toileting Score Evidence: 4 Adjust Clothes, 4 Steadying FIM Social/Cognition Social Interaction: 6 Social Interaction Score Evidence: 6 Meds For Control Problem Solvin Problem Solving Score Evidence: 5 Daily Prbs 91-99% Memory: 5 Memory Score Evidence: 5 Recalls 91-99% FIM Locomotion Walk: 2 Distance Walked (feet): 75 feet Walk Score Evidence: 2 Pt 25-49% Effort/50-149ft FIM Modifier DC Locomotion: walk FIM Modifier Walk Distance: 2 50-149 feet Stairs: 2 Stairs Score Evidence: 2 4-6 Stairs w/Assist FIM Communication Comprehension - Auditory: 5 Comprehension - Visual: 5 Comprehension Score Evidence: 5 Comp 91-99% Expression - Vocal: 6 Expression - Non Vocal: 6 Expression Score Evidence: 6 Mild Diff Complx Assessment: Pt progressing with functional mobility and demonstrating improved activity michelle erance as shown in improved O2 saturation during activity (remained at >90%). He continues to have c/o back pain and right foot pain due primarily to spasticity. He did have some lat eral right ankle swelling near the malleolus that may be some muscle strain due to equinavar us causing him to sometime walk on the side of his foot. Pt score 71 seconds on the TUG put ting him at an increased risk of falls. He continues to benefit from skilled physical thera py to improve functional mobility and safety. Physical Therapy Anticipated Discharge Needs are: Have the anticipated discharge needs changed? no Post discharge physical therapy recommendation: TBD Plan for next treatment: IRF; 2 x day; RL; 2WW; trial AFO with gait, balance trainng; funct ional safety; stretching and ROM, extension patterns Electronically signed by: Hector Davila PT, 07/07/2016 18:25 lan of Care - L Hector weinberg, PT - 07/07/2016 6:19 PM PDTProblem: Patient Care Overview (Adult) Goal: Care Team Goals & Evaluation PROBLEM-RELATED GOALS: 1. Pt will tolerate level 3 dysphagia advanced diet and thin liquids with no s/s of airway compromise by 07/08/16. 2. Pt will be modified independent with ambulation in hallway by 07/12/16. 3. Pt will report a pain level of 1/10 on a pain scale by 07/12/16. 4. Pt will have no s/s of infection by 07/12/16. STRATEGY TO ACHIEVE GOALS: 1. Pt will participate in ST -Pt will participate in all PT activities. -assess pain level throiugh the day and provide PRN pain medications. Encouraged frequent p osition changes for comfort. - monitor VS and lab results and notify MD as need it. RESTRAINT-RELATED GOALS: STRATEGIES TO ACHIEVE RESTRAINT GOALS: Outcome: Improving Physical Therapy Daily Treatment Note Patient Information Patient Name: Kevin Aleman . Date of : 1945 Age: 70 y.o. Precautions/Limitations: falls, spinal, orthotic/bracing, corrective lenses, swallowing History of Presenting Problem: back and right hip pain. Pt is now s/p L2-4 LAIF; L4-L5 TLI F; L2-L5 posterior instrumentation. PT Diagnosis: Impaired mobility Start Time: 1115 Stop time: 1205 Time Calculation: 50 minutes Missed Treatment Time: 0 minutes Total Treatment Time: 50 minutes TimedTreatment Code Minutes: 50 minutes Subjective: Pt received in room supine in bed, no family present. Pt agreeable to PT. Objective: Treatment Provided: Functional mobility, car transfer with cues for safety and technique, s tretching and PROM, stair training. Education: PT plan of care Patient Status/Goals: Reflects last filed data of patient status; may be from multiple contributors. Gait level surfaces. As pt walks his right foot spasticity increases and causes hiim pain. Level of [place] : contact guard assist Assistive Device: 2 wheeled walker (FWW) Distance (feet): 75 feet Gait Pattern Analysis: 3-point gait Gait Deviations: hiram decreased, step length decreased, stride length decreased, toe-to- floor clearance decreased Stairs Number of Stairs: 4 Handrail Location: both sides Level of [place]: contact guard assist Assistive Device: (Handrails) Technique Used: step to step (ascending), step to step (descending) Safety Issues: balance decreased during turns (Right knee buckling on descent) Impairments: muscle tone abnormal, decreased flexibility, sensation decreased, strength dec reased, impaired balance, coordination impaired, motor control impaired, pain Transfers Bed-Chair, Level of [place]: minimum assist (75% patient effort) Chair-Bed, Level of [place]: minimum assist (75% patient effort) [id number], Assistive Device: 2 wheeled walker (FWW) Sit-Stand, Level of [place]: contact guard assist Stand-Sit, Level of [place]: contact guard assist [id number], Assistive Device: 2 wheeled walker (FWW) Safety Issues: balance decreased during turns, weight-shifting ability decreased, step reno th decreased Impairments: muscle tone abnormal, sensation decreased, strength decreased, impaired balanc e, pain Bed Mobility Assistive Device: bed rails Roll Left, Level of [place]: supervision required Supine to Sit, Level of [place]: supervision required Sit to Supine, Level of [place]: supervision required Safety Issues: decreased use of legs for bridging/pushing Impairments: strength decreased, impaired balance, coordination impaired, pain, postural co ntrol impaired, motor control impaired Balance Sitting Balance: Static: good balance Sitting Balance: Dynamic: fair balance Standing Balance: Static: fair balance Standing Balance: Dynamic: fair balance Therapeutic Exercise Bed exercises: bilateral, ankle pumps, glut sets, hip abduction/adduction Seated exercises: bilateral, ankle pumps, hip abduction/adduction, marching Repetitions: x 10 ROM R LE ROM: with knee flexed pt right ankle reaches neutral to 62 degrees; however with knee extended ankle ROM is 16 - 46 degrees STG GOALS Bed Mobility Goal, Activity Type: roll left/roll right, scoot/bridge, supine to sit/sit to supine [place] Level: modified independence Assistive Device: none Time to Achieve: 2 - 3 days Goal Status: progressing toward goal Transfer Training Goal, Activity Type: bed to chair /chair to bed, sit to stand/stand to si t [place] Level: modified independence Assistive Device: 2 wheeled walker (FWW) Time to Achieve: 2 - 3 days Goal Status: progressing toward goal Gait Training Goal, [place] Level: contact guard assist Assistive Device: 2 wheeled walker (FWW) Distance: 150 feet Time to Achieve: 2 - 3 days Goal Status: progressing toward goal Stairs Goal, [place] Level: contact guard assist Assistive Device: (Handrails) Number of Stairs: 12 Time to Achieve: 2 - 3 days Goal Status: progressing toward goal LTG GOALS Bed Mobility Goal, Activity Type: roll left/roll right, scoot/bridge, supine to sit/sit to supine [place] Level: independent Assistive Device: none Time to Achieve: 1 wk Goal Status: progressing toward goal Transfer Training Goal, Activity Type: bed to chair /chair to bed, sit to stand/stand to si t [place] Level: modified independence Assistive Device: 2 wheeled walker (FWW) Time to Achieve: 1 wk Goal Status: progressing toward goal Gait Training Goal, [place] Level: modified independence Assistive Device: 2 wheeled walker (FWW) Distance: 300 feet Time to Achieve: 1 wk Goal Status: progressing toward goal Number of Stairs: 16 Time to Achieve: 1 wk Goal Status: progressing toward goal FIM: FIM Transfers Bed/Chair/Wheelchair: 4 Bed/Chair/WC Score Evidence: 4 Steadying Toilet: 4 Toilet Transfer Evidence: 4 Steadying, 6 Amb Device [place], 6 Grab Bar [place], 5 Verbal Cues, 5 Safety Supervision Tub / Shower: 4 Tub/Shower Score Evidence: 4 Steadying, 5 Verbal Cues, 6 Other Device [place] (grab ba rs) FIM Self Care Eatin Eating Score Evidence: 6 Modified Diet, 6 Extra Time Groomin Grooming Score Evidence: 5 Get Items, 5 Safety Supervison, 5 Verbal Cues Bathin Bathing Score Evidence: 4 Dep 2 of 10 Areas Dressing - Upper Body: 4 Dressing Upper Score Evidence: Laundry Room Attendant Garment (down trunk) Dressing - Lower Body: 3 Dressing Lower Score Evidence: 3 Dep 4-7 Tasks Toiletin Toileting Score Evidence: 4 Adjust Clothes, 4 Steadying FIM Social/Cognition Social Interaction: 6 Social Interaction Score Evidence: 6 Meds For Control Problem Solvin Problem Solving Score Evidence: 5 Daily Prbs 91-99% Memory: 5 Memory Score Evidence: 5 Recalls 91-99% FIM Locomotion Walk: 2 Distance Walked (feet): 75 feet Walk Score Evidence: 2 Pt 25-49% Effort/50-149ft FIM Modifier DC Locomotion: walk FIM Modifier Walk Distance: 2 50-149 feet Stairs: 2 Stairs Score Evidence: 2 4-6 Stairs w/Assist FIM Communication Comprehension - Auditory: 5 Comprehension - Visual: 5 Comprehension Score Evidence: 5 Comp 91-99% Expression - Vocal: 6 Expression - Non Vocal: 6 Expression Score Evidence: 6 Mild Diff Complx Assessment: Pt demonstrating mild improvement in functional mobility. He was able to log r oll and supine to sit EOB with supervision and no adverse reactions. Assessment of right an kle flexibility showed that with knee extended pt ankle does not reach neutral (see ROM sect ion) causing him to toe walk and interferes with safe ambulation. Will trail heel lift and padding for painful right great toe and ball of foot to see if it improve gait. Pt LE stretc hed extensively with sustained stretches and he had c/o of spasming and tightness. His great est barrier to improving mobility is spasticity in LE causing dysfunction and pain. Pt will benefit from continued physical therapy to increase activity tolerance, balance, strength an d flexibility to improve safety and independence. Physical Therapy Anticipated Discharge Needs are: Have the anticipated discharge needs changed? no Post discharge physical therapy recommendation: TBD Plan for next treatment: IRF; 2 x day; RL; 2 WW; Progressive gait training; TUG; car transf er; Electronically signed by: Hector Davila, PT, 07/07/2016 18:18 lan of Care - v on Karolina, CHEMO Stoddard - 07/07/2016 4:44 PM PDTProblem: Patient Care Overview (Adult) Goal: Care Team Goals & Evaluation PROBLEM-RELATED GOALS: 1. Pt will tolerate level 3 dysphagia advanced diet and thin liquids with no s/s of airway compromise by 07/08/16. 2. Pt will be modified independent with ambulation in hallway by 07/12/16. 3. Pt will report a pain level of 1/10 on a pain scale by 07/12/16. 4. Pt will have no s/s of infection by 07/12/16. STRATEGY TO ACHIEVE GOALS: 1. Pt will participate in ST -Pt will participate in all PT activities. -assess pain level throiugh the day and provide PRN pain medications. Encouraged frequent p osition changes for comfort. - monitor VS and lab results and notify MD as need it. RESTRAINT-RELATED GOALS: STRATEGIES TO ACHIEVE RESTRAINT GOALS: Occupational Therapy Daily Treatment Note Patient Information Patient Name: Kevin Aleman . Date of : 1945 Age: 70 y.o. Precautions/Limitations: falls, spinal, orthotic/bracing, corrective lenses, swallowing Start Time: 1300 Stop time: 1345 Time Calculation: 45 minutes Missed Treatment Time: 0 minutes Total Treatment Time: 45 minutes TimedTreatment Code Minutes: 45 minutes Frequency: daily Subjective: Pt agreeable to work with this therapist this afternoon Objective: Pt reports increased pain and spams in R LE. PT sat to EOB with VC for log roll. sit to s tand SBA. ambulated to [facility] FWW CGA. Pt completed toilet transfer and clothing managem ent. Obtained Admit Impact scores for toileting and toilet transfer for OTR to document in pt's chart. Pt sat at ssink to complete grooming of shaving and brushing teeth. See belo w for pt's level of assist. Pt went back to bed so nursing could get a bladder scan. Education: spinal precaution review Treatment Provided: ADL training Patient Status/Goals Reflects last filed data of patient status; may be from multiple contributors. ADLs . Toileting, Level of [place]: verbal cues required, contact guard assist, supervision r equired, set up required Toileting Assess/Train, Position: sitting, supported standing . Grooming, Level of [place]: supervision required, set up required Grooming Assess/Train, Position: sitting Transfers Toilet, Level of [place]: contact guard assist Toilet, Assistive Device: 2 wheeled walker (FWW), grab bars, seat riser (seat riser is BSC over toilet) STG Goals Transfer Training Goal, Activity Type: toilet [place] Level: minimum assist (75% patient effort) Assistive Device: 2 wheeled walker (FWW) Time to Achieve: 5 - 7 days Goal Status: continued Grooming Goal, [place] Level: set up required, verbal cues required Adaptive Equipment: none Position: sitting in chair Time to Achieve: 2 - 3 days Goal Status: continued Bathing Goal, [place] Level: minimum assist (75% patient effort) Adaptive Equpiment: grab bars, scrub brush, shower chair Time to Achieve: 5 - 7 days Goal Status: continued, progressing toward goal Toileting Goal, [place] Level: minimum assist (75% patient effort), verbal cues requir ed Assistive Device: toilet paper aid Time to Achieve: 5 - 7 days Goal Status: continued UB Dressing Goal, [place] Level: minimum assist (75% patient effort), verbal cues requ ired Adaptive Equipment: none Time to Achieve: 5 - 7 days Goal Status: continued, progressing toward goal LB Dressing Goal, [place] Level: moderate assist (50% patient effort) Adaptive Equipment: transmitter engineer in charge, dressing stick, shoe horn, long handled Time to Achieve: 5 - 7 days Goal Status: continued, progressing toward goal LTG Goals Transfer Training Goal, Activity Type: walk-in shower, toilet [place] Level: contact guard assist Assistive Device: 2 wheeled walker (FWW), grab bars Time to Achieve: 5 - 7 days Goal Status: continued Grooming Goal, [place] Level: set up required Adaptive Equipment: none Position: sitting in chair Time to Achieve: 5 - 7 days Goal Status: continued Bathing Goal, [place] Level: set up required, verbal cues required Adaptive Equpiment: grab bars, scrub brush Time to Achieve: 5 - 7 days Goal Status: continued Toileting Goal, [place] Level: supervision required Assistive Device: none Time to Achieve: 5 - 7 days Goal Status: continued UB Dressing Goal, [place] Level: set up required Adaptive Equipment: none Time to Achieve: 5 - 7 days Goal Status: continued LB Dressing Goal, [place] Level: verbal cues required, set up required Adaptive Equipment: transmitter engineer in charge, laces, elastic, shoe horn, long handled, sock-aid Time to Achieve: 5 - 7 days Goal Status: continued FIM: FIM Transfers Toilet: 4 Toilet Transfer Evidence: 4 Steadying, 6 Amb Device [place], 6 Grab Bar [place], 5 Verbal Cues, 5 Safety Supervision FIM Self Care Groomin Grooming Score Evidence: 5 Get Items, 5 Safety Supervison, 5 Verbal Cues Toiletin Toileting Score Evidence: 4 Adjust Clothes, 4 Steadying Assessment: Pt presented with easier time breathing in the PM. Pt struggles to maintain pr ecautions with self care tasks. Occupational Therapy Anticipated Discharge Needs are: home with home health Have the anticipated discharge needs changed? no Post discharge occupational therapy recommendation: TBD Plan for next treatment: 1P, DV, ADL's Electronically signed by: CHEMO Ivy, 07/07/2016 16:41 lan of Care - Nicolle Vargas COTA - 07/07/2016 3:34 PM PDTProblem: Patient Care Overview (Adult) Goal: Care Team Goals & Evaluation PROBLEM-RELATED GOALS: 1. Pt will tolerate level 3 dysphagia advanced diet and thin liquids with no s/s of airway compromise by 07/08/16. 2. Pt will be modified independent with ambulation in hallway by 07/12/16. 3. Pt will report a pain level of 1/10 on a pain scale by 07/12/16. 4. Pt will have no s/s of infection by 07/12/16. STRATEGY TO ACHIEVE GOALS: 1. Pt will participate in ST -Pt will participate in all PT activities. -assess pain level throiugh the day and provide PRN pain medications. Encouraged frequent p osition changes for comfort. - monitor VS and lab results and notify MD as need it. RESTRAINT-RELATED GOALS: STRATEGIES TO ACHIEVE RESTRAINT GOALS: Outcome: Improving Occupational Therapy Daily Treatment Note Patient Information Patient Name: Kevin Aleman Sr. Date of : 1945 Age: 70 y.o. Precautions/Limitations: falls, spinal, orthotic/bracing, corrective lenses, swallowing Start Time: 0705 Stop time: 0815 Time Calculation: 70 minutes Missed Treatment Time: 0 minutes Total Treatment Time: 70 minutes TimedTreatment Code Minutes: 70 minutes Frequency: daily Subjective: Pt agreeable to shower this AM Objective: Pt agreeable to shower this AM. Pt sat to EOB w/o assist, VC's for log roll technique this AM. Pt is presenting with wheezing this AM, Pt ambulated around bed to w/c using FWW. had pt use his spirometer befor he went to/from shower room in W/C for energy conservation. Pt transferred to shower chair using grab bar wiht VC's for precautions. Pt showered from si tting, needing to stop 3 times to catch his breath, wheezing apears to be worsening througho ut sower, possibily do to warm moist air from shower. O2 sated remained good through out sh ower 90-95% on room air, but his pulse rate did increase to 116 at one point, had pt stop t o rest Pulse came down to 106. Notified nursing and requested RT d/t pt's wheezing. See be low for pt's level of assist with ADL's. Left pt up in w/c with RT. Education: Energy conservations and pursed lip breathing (PLB) Treatment Provided: ADL training Patient Status/Goals Reflects last filed data of patient status; may be from multiple contributors. ADLs . Bathing, Level of [place]: minimum assist (75% patient effort) Assistive Device: grab bars, hand-held shower head, long-handled sponge, shower chair with back Bathing Assess/Train, Position: supported sitting Bathing Assess/Train, Impairments: decreased flexibility, ROM decreased, pain, impaired bal ance UB Dressing, Level of [place]: set up required, verbal cues required, contact guard as sist Assistive Device: none UB Dressing Assess/Train, Position: sitting . LB, Level of [place]: moderate assist (50% patient effort) Assistive Device: transmitter engineer in charge, sock-aid LB Dressing Assess/Train, Position: sitting, supported standing not able to complete this AM Grooming, Level of [place]: supervision required, verbal cues required Grooming Assess/Train, Position: sitting Transfers Walk-In Shower, Level of [place]: contact guard assist, set up required, verbal cues r equired, supervision required Walk-in shower, Assistive Device: 2 wheeled walker (FWW), grab bars, shower chair STG Goals Transfer Training Goal, Activity Type: toilet [place] Level: minimum assist (75% patient effort) Assistive Device: 2 wheeled walker (FWW) Time to Achieve: 5 - 7 days Goal Status: continued Grooming Goal, [place] Level: set up required, verbal cues required Adaptive Equipment: none Position: sitting in chair Time to Achieve: 2 - 3 days Goal Status: continued Bathing Goal, [place] Level: minimum assist (75% patient effort) Adaptive Equpiment: grab bars, scrub brush, shower chair Time to Achieve: 5 - 7 days Goal Status: continued, progressing toward goal Toileting Goal, [place] Level: minimum assist (75% patient effort), verbal cues requir ed Assistive Device: toilet paper aid Time to Achieve: 5 - 7 days Goal Status: continued UB Dressing Goal, [place] Level: minimum assist (75% patient effort), verbal cues requ ired Adaptive Equipment: none Time to Achieve: 5 - 7 days Goal Status: continued, progressing toward goal LB Dressing Goal, [place] Level: moderate assist (50% patient effort) Adaptive Equipment: transmitter engineer in charge, dressing stick, shoe horn, long handled Time to Achieve: 5 - 7 days Goal Status: continued, progressing toward goal LTG Goals Transfer Training Goal, Activity Type: walk-in shower, toilet [place] Level: contact guard assist Assistive Device: 2 wheeled walker (FWW), grab bars Time to Achieve: 5 - 7 days Goal Status: continued Grooming Goal, [place] Level: set up required Adaptive Equipment: none Position: sitting in chair Time to Achieve: 5 - 7 days Goal Status: continued Bathing Goal, [place] Level: set up required, verbal cues required Adaptive Equpiment: grab bars, scrub brush Time to Achieve: 5 - 7 days Goal Status: continued Toileting Goal, [place] Level: supervision required Assistive Device: none Time to Achieve: 5 - 7 days Goal Status: continued UB Dressing Goal, [place] Level: set up required Adaptive Equipment: none Time to Achieve: 5 - 7 days Goal Status: continued LB Dressing Goal, [place] Level: verbal cues required, set up required Adaptive Equipment: transmitter engineer in charge, laces, elastic, shoe horn, long handled, sock-aid Time to Achieve: 5 - 7 days Goal Status: continued FIM: FIM Transfers Tub / Shower: 4 Tub/Shower Score Evidence: 4 Steadying, 5 Verbal Cues, 6 Other Device [place] (grab ba rs) FIM Self Care Bathin Bathing Score Evidence: 4 Dep 2 of 10 Areas Dressing - Upper Body: 4 Dressing Upper Score Evidence: Laundry Room Attendant Garment (down trunk) Dressing - Lower Body: 3 Dressing Lower Score Evidence: 3 Dep 4-7 Tasks Toiletin Toileting Score Evidence: 5 Safety Supervision Assessment: [place] that pt needed increased assist d/t breathing issues this AM. Occupational Therapy Anticipated Discharge Needs are: home with home health Have the anticipated discharge needs changed? no Post discharge occupational therapy recommendation: TBD Plan for next treatment: 1P, DV, Toileting and Grooming activity Electronically signed by: CHEMO Ivy, 07/07/2016 15:28 lan of Care - Court Gallardo RN - 07/07/2016 6:00 AM PDTProblem: Patient Care Overview (Adult) Goal: Care Team Goals & Evaluation PROBLEM-RELATED GOALS: 1. Pt will tolerate level 3 dysphagia advanced diet and thin liquids with no s/s of airway compromise by 07/08/16. 2. Pt will be modified independent with ambulation in hallway by 07/12/16. 3. Pt will report a pain level of 1/10 on a pain scale by 07/12/16. 4. Pt will have no s/s of infection by 07/12/16. STRATEGY TO ACHIEVE GOALS: 1. Pt will participate in ST -Pt will participate in all PT activities. -assess pain level throiugh the day and provide PRN pain medications. Encouraged frequent p osition changes for comfort. - monitor VS and lab results and notify MD as need it. RESTRAINT-RELATED GOALS: STRATEGIES TO ACHIEVE RESTRAINT GOALS: Goal Evaluation: Pt has been alert and oriented during the night, but is still not calling when needing assi st to use the urinal- so bed alarm is on for patient safety. He reports his pain has not bee n below a 5 but will only take 1 oxycodone at a time. He reports concern with taking " too m any" pain medications. He finally had a small BM after 4 days and will continue with bowel m edications PRN. No s/s infection noted to the incisions on his back and flank. lan of Care - Hector Marinelli, PT - 07/06/2016 6:46 PM PDTProblem: Patient Care Overview (Adult) Goal: Care Team Goals & Evaluation PROBLEM-RELATED GOALS: 1. Pt will tolerate level 3 dysphagia advanced diet and thin liquids with no s/s of airway compromise by 07/08/16. 2. Pt will be modified independent with ambulation in hallway by 07/12/16. 3. Pt will report a pain level of 1/10 on a pain scale by 07/12/16. 4. Pt will have no s/s of infection by 07/12/16. STRATEGY TO ACHIEVE GOALS: 1. Pt will participate in ST -Pt will participate in all PT activities. -assess pain level throiugh the day and provide PRN pain medications. Encouraged frequent p osition changes for comfort. - monitor VS and lab results and notify MD as need it. RESTRAINT-RELATED GOALS: STRATEGIES TO ACHIEVE RESTRAINT GOALS: Outcome: Improving Physical Therapy Daily Treatment Note Patient Information Patient Name: Kevin Aleman . Date of : 1945 Age: 70 y.o. Precautions/Limitations: falls, spinal, orthotic/bracing, corrective lenses, swallowing History of Presenting Problem: back and right hip pain. Pt is now s/p L2-4 LAIF; L4-L5 TLI F; L2-L5 posterior instrumentation. PT Diagnosis: Impaired mobility Start Time: 1550 Stop time: 1602 Time Calculation: 12 minutes Missed Treatment Time: 0 minutes Total Treatment Time: 12 minutes TimedTreatment Code Minutes: 12 minutes Subjective: Pt received in room sitting up in chair. Pt with c/o fatigue and wishing to murphy it his PT session, otherwise Pt agreeable to PT. Objective: Treatment Provided: Bed mobility, transfer training; gait training, LE strengthening. Education: Pt plan of care, safety. Patient Status/Goals: Reflects last filed data of patient status; may be from multiple contributors. Gait level surface Level of [place] : minimum assist (75% patient effort) Assistive Device: 2 wheeled walker (FWW) Distance (feet): 15 Gait Pattern Analysis: 3-point gait Gait Deviations: hiram decreased, [id number] clearance decreased, weight-shifting abili ty decreased, step length decreased, stride length decreased Transfers Bed-Chair, Level of [place]: minimum assist (75% patient effort) Chair-Bed, Level of [place]: minimum assist (75% patient effort) [id number], Assistive Device: 2 wheeled walker (FWW) Sit-Stand, Level of [place]: contact guard assist Stand-Sit, Level of [place]: contact guard assist [id number], Assistive Device: 2 wheeled walker (FWW) Safety Issues: balance decreased during turns, weight-shifting ability decreased, step reno th decreased Impairments: muscle tone abnormal, sensation decreased, strength decreased, impaired balanc e, pain Bed Mobility Assistive Device: bed rails Roll Left, Level of [place]: supervision required Supine to Sit, Level of [place]: not tested Sit to Supine, Level of [place]: contact guard assist Safety Issues: decreased use of arms for pushing/pulling, decreased use of legs for bridgin g/pushing Impairments: strength decreased, impaired balance, coordination impaired, motor control imp aired, muscle tone abnormal, pain Balance Sitting Balance: Static: good balance Sitting Balance: Dynamic: fair balance Standing Balance: Static: fair balance Standing Balance: Dynamic: fair balance Therapeutic Exercise Bed exercises: bilateral, ankle pumps, glut sets, hip abduction/adduction STG GOALS Bed Mobility Goal, Activity Type: roll left/roll right, scoot/bridge, supine to sit/sit to supine [place] Level: modified independence Assistive Device: none Time to Achieve: 2 - 3 days Goal Status: progressing toward goal Transfer Training Goal, Activity Type: bed to chair /chair to bed, sit to stand/stand to si t [place] Level: modified independence Assistive Device: 2 wheeled walker (FWW) Time to Achieve: 2 - 3 days Goal Status: progressing toward goal Gait Training Goal, [place] Level: contact guard assist Assistive Device: 2 wheeled walker (FWW) Distance: 150 feet Time to Achieve: 2 - 3 days Goal Status: progressing toward goal Stairs Goal, [place] Level: contact guard assist Assistive Device: (Handrails) Number of Stairs: 12 Time to Achieve: 2 - 3 days Goal Status: not addressed LTG GOALS Bed Mobility Goal, Activity Type: roll left/roll right, scoot/bridge, supine to sit/sit to supine [place] Level: independent Assistive Device: none Time to Achieve: 1 wk Goal Status: progressing toward goal Transfer Training Goal, Activity Type: bed to chair /chair to bed, sit to stand/stand to si t [place] Level: modified independence Assistive Device: 2 wheeled walker (FWW) Time to Achieve: 1 wk Goal Status: progressing toward goal Gait Training Goal, [place] Level: modified independence Assistive Device: 2 wheeled walker (FWW) Distance: 300 feet Time to Achieve: 1 wk Goal Status: progressing toward goal Number of Stairs: 16 Time to Achieve: 1 wk Goal Status: not addressed FIM: FIM Transfers Bed/Chair/Wheelchair: 4 Bed/Chair/WC Score Evidence: 4 Steadying FIM Self Care Grooming Score Evidence: 5 Safety Supervison, 5 Verbal Cues, 6 Extra Time Dressing - Upper Body: 4 Dressing Upper Score Evidence: 4 Steadying, 5 Get Clothing, 5 Verbal Cues, 5 Safety Superv ision Dressing - Lower Body: 3 Dressing Lower Score Evidence: 3 Dep 4-7 Tasks, On/Off R Pant Leg, On/Off L Pant Leg, On/Of f R Sock, On/Off L Sock, On/Off R Shoe, On/Off L Shoe, 6 Sock Aid, 6 Slubber Hand, 6 Other Device , 5 Verbal Cues, 5 Get Clothing, 5 Safety Supervision FIM Locomotion Walk: 2 Distance Walked (feet): 50 feet Walk Score Evidence: 2 Pt 25-49% Effort/50-149ft FIM Modifier DC Locomotion: walk FIM Modifier Walk Distance: 2 50-149 feet Stairs: 0 Stairs Score Evidence: 0 Did Not Occur Assessment: Pt participated in LE strengthening and functional mobility with no adverse mony nts. Pt with c/o fatigue and therefore he was returned to bed supine after exercises and so me mobility traiing with all needs in reach. Pt will benefit from continued physical therap y to increase strength, balance, and activity tolerance to improve safety and independence. Physical Therapy Anticipated Discharge Needs are: Have the anticipated discharge needs changed? no Post discharge physical therapy recommendation: TBD Plan for next treatment: IRF; 2 x day; RL; 2WW; Finish CARE scores: Car transfer; 1 step cu rb; 4 steps; 12 steps; picking up object; Bed mobility; transfer training; gait training; ba klaus training; LE stretching and strengthening Electronically signed by: Hector Davila, PT, 07/06/2016 18:42 lan of Care - v on Au, Nicolle R, MCLAIN - 07/06/2016 6:33 PM PDTProblem: Patient Care Overview (Adult) Goal: Care Team Goals & Evaluation PROBLEM-RELATED GOALS: 1. Pt will tolerate level 3 dysphagia advanced diet and thin liquids with no s/s of airway compromise by 07/08/16. 2. Pt will be modified independent with ambulation in hallway by 07/12/16. 3. Pt will report a pain level of 1/10 on a pain scale by 07/12/16. 4. Pt will have no s/s of infection by 07/12/16. STRATEGY TO ACHIEVE GOALS: 1. Pt will participate in ST -Pt will participate in all PT activities. -assess pain level throiugh the day and provide PRN pain medications. Encouraged frequent p osition changes for comfort. - monitor VS and lab results and notify MD as need it. RESTRAINT-RELATED GOALS: STRATEGIES TO ACHIEVE RESTRAINT GOALS: Occupational Therapy Daily Treatment Note Patient Information Patient Name: Kevin Aleman . Date of : 1945 Age: 70 y.o. Precautions/Limitations: falls, spinal, orthotic/bracing, corrective lenses, swallowing Start Time: 1300 Stop time: 1345 Time Calculation: 45 minutes Missed Treatment Time: 0 minutes Total Treatment Time: 45 minutes TimedTreatment Code Minutes: 45 minutes Frequency: daily Subjective: Pt agreeable to work with OT this afternoon Objective: Pt agreeable to work with MCLAIN this afternoon. Pt sat to EOB using log roll w/o assist. P t completed Dressing and grooming this after noon usign AE. Pt stood from EOB using FWW w/o assist this afternoon, but required VC's for hand placement. See below for pt's level of a ssist. Pt ambulated to/from bathroomusing FWW with CGA. Pt requested to sit at sink to bru sh his teeth, he declined to shave this afternoon. Pt requested to lay back down at the end of our session. Education: AE training, spinal precaution review Treatment Provided: ADL training Patient Status/Goals Reflects last filed data of patient status; may be from multiple contributors. ADLs UB Dressing, Level of [place]: contact guard assist, set up required, verbal cues requ ired Assistive Device: none UB Dressing Assess/Train, Position: sitting . LB, Level of [place]: minimum assist (75% patient effort) Assistive Device: long-handled shoe horn, transmitter engineer in charge, sock-aid LB Dressing Assess/Train, Position: sitting, supported standing . Grooming, Level of [place]: supervision required, verbal cues required Grooming Assess/Train, Position: sitting STG Goals Transfer Training Goal, Activity Type: toilet [place] Level: minimum assist (75% patient effort) Assistive Device: 2 wheeled walker (FWW) Time to Achieve: 5 - 7 days Goal Status: continued Grooming Goal, [place] Level: set up required, verbal cues required Adaptive Equipment: none Position: sitting in chair Time to Achieve: 2 - 3 days Goal Status: continued, progressing toward goal Bathing Goal, [place] Level: minimum assist (75% patient effort) Adaptive Equpiment: grab bars, scrub brush, shower chair Time to Achieve: 5 - 7 days Goal Status: continued Toileting Goal, [place] Level: minimum assist (75% patient effort), verbal cues requir ed Assistive Device: toilet paper aid Time to Achieve: 5 - 7 days Goal Status: continued UB Dressing Goal, [place] Level: minimum assist (75% patient effort), verbal cues requ ired Adaptive Equipment: none Time to Achieve: 5 - 7 days Goal Status: continued, progressing toward goal LB Dressing Goal, [place] Level: moderate assist (50% patient effort) Adaptive Equipment: transmitter engineer in charge, dressing stick, shoe horn, long handled Time to Achieve: 5 - 7 days Goal Status: continued, progressing toward goal LTG Goals Transfer Training Goal, Activity Type: walk-in shower, toilet [place] Level: contact guard assist Assistive Device: 2 wheeled walker (FWW), grab bars Time to Achieve: 5 - 7 days Goal Status: continued Grooming Goal, [place] Level: set up required Adaptive Equipment: none Position: sitting in chair Time to Achieve: 5 - 7 days Goal Status: continued Bathing Goal, [place] Level: set up required, verbal cues required Adaptive Equpiment: grab bars, scrub brush Time to Achieve: 5 - 7 days Goal Status: continued Toileting Goal, [place] Level: supervision required Assistive Device: none Time to Achieve: 5 - 7 days Goal Status: continued UB Dressing Goal, [place] Level: set up required Adaptive Equipment: none Time to Achieve: 5 - 7 days Goal Status: continued LB Dressing Goal, [place] Level: verbal cues required, set up required Adaptive Equipment: transmitter engineer in charge, laces, elastic, shoe horn, long handled, sock-aid Time to Achieve: 5 - 7 days Goal Status: continued FIM: FIM Transfers FIM Self Care Grooming Score Evidence: 5 Safety Supervison, 5 Verbal Cues, 6 Extra Time Dressing - Upper Body: 4 Dressing Upper Score Evidence: 4 Steadying, 5 Get Clothing, 5 Verbal Cues, 5 Safety Superv ision Dressing - Lower Body: 3 Dressing Lower Score Evidence: 3 Dep 4-7 Tasks, On/Off R Pant Leg, On/Off L Pant Leg, On/Of f R Sock, On/Off L Sock, On/Off R Shoe, On/Off L Shoe, 6 Sock Aid, 6 Slubber Hand, 6 Other Device , 5 Verbal Cues, 5 Get Clothing, 5 Safety Supervision Assessment: Pt forgets his precautions. Needs additional instruction and v/c through out s ession. Occupational Therapy Anticipated Discharge Needs are: home with home health Have the anticipated discharge needs changed? no Post discharge occupational therapy recommendation: TBD Plan for next treatment: 1-2P, ADL's, Shower Electronically signed by: CHEMO Ivy, 07/06/2016 18:30 lan of Care - Michael Waller RN - 07/06/2016 6:25 PM PDTProblem: Patient Care Overview (Adult) Goal: Care Team Goals & Evaluation PROBLEM-RELATED GOALS: 1. Pt will tolerate level 3 dysphagia advanced diet and thin liquids with no s/s of airway compromise by 07/08/16. 2. Pt will be modified independent with ambulation in hallway by 07/12/16. 3. Pt will report a pain level of 1/10 on a pain scale by 07/12/16. 4. Pt will have no s/s of infection by 07/12/16. STRATEGY TO ACHIEVE GOALS: 1. Pt will participate in ST -Pt will participate in all PT activities. -assess pain level throiugh the day and provide PRN pain medications. Encouraged frequent p osition changes for comfort. - monitor VS and lab results and notify MD as need it. RESTRAINT-RELATED GOALS: STRATEGIES TO ACHIEVE RESTRAINT GOALS: Outcome: Improving Goal Evaluation: 1. Pt tolerated a dysphagia advance diet well, denies difficulty swallowing food but Pt re ported poor appetite today. 2. Pt required reminders about calling for help. Pt is a derrick risk for falls, bed/chair al arms on. Pt ambulates with one person CGA and FWW to the bathroom and with transfers to the chair/bed. 3. Pt was controlled with one Oxycodone pill and Flexeril pill today. Pt requested only one pain pill at a time. 4. No s/s of infection noted, VSS, remains afebrile. Pt remains A&O x4 today, pleasant and cooperative with cares. Pt denies numbness, muscle s trength to LLE 5/5, RLE 4-/5. LOS C brace in place. Band aids to low posterior back c/d/i. lan of Care - Sirena Hatfield OT - 07/06/2016 5:59 PM PDTFormatting of this note might be different from th e original. Problem: Patient Care Overview (Adult) Goal: Care Team Goals & Evaluation PROBLEM-RELATED GOALS: 1. Pt will tolerate level 3 dysphagia advanced diet and thin liquids with no s/s of airway compromise by 07/08/16. 2. Pt will be modified independent with ambulation in hallway by 07/12/16. STRATEGY TO ACHIEVE GOALS: 1. Pt will participate in ST -Pt will participate in all PT activities. RESTRAINT-RELATED GOALS: STRATEGIES TO ACHIEVE RESTRAINT GOALS: Occupational Therapy Acute Initial Evaluation Note Patient Information Patient Name: Kevin Aleman . Date of : 1945 Age: 70 y.o. History Encounter Diagnoses Code Name Primary? R26.9 Gait abnormality Yes I63.30 Cerebral thrombosis with cerebral infarction ([facility]) M46.96 Facet arthritis of lumbar region ([facility]) M21.961 Foot deformity, acquired, right Date of Onset: 07/03/16 Past Medical History Diagnosis Date GERD (gastroesophageal reflux disease) Depression High cholesterol Stroke ([facility]) right sided weakness Hypertension Back pain of thoracolumbar region 08/29/2012 Facet arthritis of lumbar region ([facility]) 02/01/2015 Trochanteric bursitis of right hip 02/01/2015 [...] Severe itching Acetaminophen Itching Precautions/Limitations: falls, spinal, orthotic/bracing, corrective lenses, swallowing Evaluation SUBJECTIVE: History of Presenting Problem: Kevin Hernándeznicholas . is a 70 y.o. who presents to therapy for back and right hip pain. Pt is now s/p L2-4 LAIF; L4-L5 TLIF; L2-L5 posterio r instrumentation. Patient is right handed. OT Diagnosis: OT olena and treat S/P lumbar fusion, mulitple levels with severe weakness Previous Level of Function: Transferring: independent Ambulation: independent Prior Functional Level Comment: hx cva with [...] Lives With: spouse Living Arrangements: mobile home Patient s Goals: return home with OT Visit Summary: Occupational Therapy will follow Kevin Aleman Sr. daily until discharge from therapy o r discharged from the hospital. Occupational Therapy Anticipated Discharge Needs: Ongoing occupational therapy required. DC disposition TBD. Post discharge occupational therapy recommendation: (tbd) Equipment Recommendations: 2 wheeled walker (FWW) Identified Problems Needing Skilled Intervention: OT olena and treat S/P lumbar fusion, mul itple levels with severe weakness, aerobic capacity/endurance, ventilation and respiration/g as exchange, ergonomics and body mechanics, gait, locomotion, and balance, motor function, m uscle performance, posture Planned Interventions:Planned Therapy Interventions: ADL retraining, transfer training, ort hotic fitting/training Patient Status/Goals Reflects last filed data of patient status; may be from multiple contributors. FIM: FIM Transfers Bed/Chair/Wheelchair: 4 Bed/Chair/WC Score Evidence: 4 Steadying FIM Locomotion Walk: 2 Distance Walked (feet): 50 feet Walk Score Evidence: 2 Pt 25-49% Effort/50-149ft FIM Modifier DC Locomotion: walk FIM Modifier Walk Distance: 2 50-149 feet Stairs: 0 Stairs Score Evidence: 0 Did Not Occur ADLs Pt forgets his precautions. Needs additional instruction and v/c Bathing, Level of [place]: set up required, verbal cues required, moderate assist (50% patient effort) Assistive Device: long-handled sponge Bathing Assess/Train, Position: sitting Bathing Assess/Train, Impairments: decreased flexibility, ROM decreased, pain, impaired bal ance Pt was lying in bed to change gown and didn ot wish to sit up for underware application. H e was able to use transmitter engineer in charge to apply underware over feet and putll up to thighs befor comming to stand for min assit and v/c for pulling over hips LB, Level of [place]: moderate assist (50% patient effort), verbal cues required, set up required Assistive Device: transmitter engineer in charge LB Dressing Assess/Train, Position: sitting, supported standing ROM ROM limited to 90 shoudler due to surgery. no limits distall Strength NT, 5# limite for lifing STG Goals Transfer Training Goal, Activity Type: toilet [place] Level: minimum assist (75% patient effort) Assistive Device: 2 wheeled walker (FWW) Time to Achieve: 5 - 7 days Goal Status: new Grooming Goal, [place] Level: set up required, verbal cues required Adaptive Equipment: none Position: sitting in chair Time to Achieve: 2 - 3 days Goal Status: new Bathing Goal, [place] Level: minimum assist (75% patient effort) Adaptive Equpiment: grab bars, scrub brush, shower chair Time to Achieve: 5 - 7 days Goal Status: new Toileting Goal, [place] Level: minimum assist (75% patient effort), verbal cues requir ed Assistive Device: toilet paper aid Time to Achieve: 5 - 7 days Goal Status: new UB Dressing Goal, [place] Level: minimum assist (75% patient effort), verbal cues requ ired Adaptive Equipment: none Time to Achieve: 5 - 7 days Goal Status: new LB Dressing Goal, [place] Level: moderate assist (50% patient effort) Adaptive Equipment: transmitter engineer in charge, dressing stick, shoe horn, long handled Time to Achieve: 5 - 7 days Goal Status: new LTG Goals Transfer Training Goal, Activity Type: walk-in shower, toilet [place] Level: contact guard assist Assistive Device: 2 wheeled walker (FWW), grab bars Time to Achieve: 5 - 7 days Goal Status: new Grooming Goal, [place] Level: set up required Adaptive Equipment: none Position: sitting in chair Time to Achieve: 5 - 7 days Goal Status: new Bathing Goal, [place] Level: set up required, verbal cues required Adaptive Equpiment: grab bars, scrub brush Time to Achieve: 5 - 7 days Goal Status: new Toileting Goal, [place] Level: supervision required Assistive Device: none Time to Achieve: 5 - 7 days Goal Status: new UB Dressing Goal, [place] Level: set up required Adaptive Equipment: none Time to Achieve: 5 - 7 days Goal Status: new LB Dressing Goal, [place] Level: verbal cues required, set up required Adaptive Equipment: transmitter engineer in charge, laces, elastic, shoe horn, long handled, sock-aid Time to Achieve: 5 - 7 days Goal Status: new Demonstrates need for referral to other service: Assessment: Occupational therapy orders received and acknowledged. Objective impairments i nclude very slow motions, left hip pain and impaired motion, spinal precautions. These impai rments are causing functional limitations with patient s inability to complete daily ADL's . Complexities contributing to the need for skilled therapy include age, hx CVA with right w eakness. Prognosis: Patient and/or family has indicated understanding of treatment needs and actively participa marina in the creation of this plan for care. Today's Treatment Start Time: 1030 Stop time: 1125 Time Calculation: 55 minutes Missed Treatment Time: 0 minutes Total Treatment Time: 55 minutes TimedTreatment Code Minutes: 40 minutes Objective: Education: Review of spinal precautions. Treatment Provided: Pt seen for initial eval and ADL training. Pt seen for bathing at bedside. Pt required verbal cues to not bend when washing legs. VC to remove brace. Unable to perform UE dressing in AM due to IV still in his arm. Will attempt in PM. Pt able to place and use urinal after urinal handed to pt, setting it on the bedside table when completed. Very slow for completion of activity. Assessment: Pt's motions are very slow this AM for activities. Plan for next treatment: 1-2 P, DU, DRESSING TREAINING Electronically signed by: Sirena Hatfield OT, 07/06/2016 17:44 Goal Evaluation: lan of Care - Hector Marinelli, PT - 07/06/2016 5:55 PM PDT Problem: Patient Care Overview (Adult) Goal: Care Team Goals & Evaluation PROBLEM-RELATED GOALS: 1. Pt will tolerate level 3 dysphagia advanced diet and thin liquids with no s/s of airway compromise by 07/08/16. 2. Pt will be modified independent with ambulation in hallway by 07/12/16. STRATEGY TO ACHIEVE GOALS: 1. Pt will participate in ST -Pt will participate in all PT activities. RESTRAINT-RELATED GOALS: STRATEGIES TO ACHIEVE RESTRAINT GOALS: Outcome: Improving Physical Therapy IRF Initial Evaluation Note Patient Information Patient Name: Kevin Aleman . Date of : 1945 Age: 70 y.o. History Encounter Diagnoses Code Name Primary? 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 is a 70 y.o. who presents to therapy for back and right hip pain. Pt is now s/p L2-4 LAIF; L4-L5 TLIF; L2-L5 posterio r instrumentation. PT Diagnosis: Impaired mobility Impairments Found: aerobic capacity/endurance, ventilation and respiration/gas exchange, er gonomics and body mechanics, gait, locomotion, and balance, motor function, muscle performan ce, posture Previous Level of Function: Transferring: independent Ambulation: independent Prior Functional Level Comment: hx cva with [...] Lives With: spouse Living Arrangements: mobile home Patient s Goals: Return home, walk better OBJECTIVE : Patient Status/Goals: Reflects last filed data of patient status; may be from multiple contributors. Bed Mobility Assistive Device: bed rails, HOB elevated Roll Left, Level of [place]: supervision required Supine to Sit, Level of [place]: minimum assist (75% patient effort) Sit to Supine, Level of [place]: minimum assist (75% patient effort) (assist with LE) Safety Issues: decreased use of legs for bridging/pushing, decreased use of arms for pushin g/pulling Impairments: strength decreased, impaired balance, muscle tone abnormal, decreased flexibil ity, pain Transfers Bed-Chair, Level of [place]: minimum assist (75% patient effort) Chair-Bed, Level of [place]: minimum assist (75% patient effort) [id number], Assistive Device: 2 wheeled walker (FWW) Sit-Stand, Level of [place]: minimum assist (75% patient effort) Stand-Sit, Level of [place]: minimum assist (75% patient effort) [id number], Assistive Device: 2 wheeled walker (FWW) Safety Issues: balance decreased during turns, weight-shifting ability decreased, step reno th decreased Impairments: muscle tone abnormal, sensation decreased, strength decreased, impaired balanc e, pain Gait level surface Level of [place] : minimum assist (75% patient effort) Assistive Device: 2 wheeled walker (FWW) Distance (feet): 50 feet Gait Pattern Analysis: 3-point gait Gait Deviations: hiram decreased, lap-tv-mhtee clearance decreased, weight-shifting abili ty decreased, step length decreased, stride length decreased Stairs NT, however pt has steps to enter home and therefore a stair goal is appropriate. Balance Sitting Balance: Static: good balance Sitting Balance: Dynamic: fair balance Standing Balance: Static: fair balance Standing Balance: Dynamic: fair balance STG GOALS Bed Mobility Goal, Activity Type: roll left/roll right, scoot/bridge, supine to sit/sit to supine [place] Level: modified independence Assistive Device: none Time to Achieve: 2 - 3 days Goal Status: new Transfer Training Goal, Activity Type: bed to chair /chair to bed, sit to stand/stand to si t [place] Level: modified independence Assistive Device: 2 wheeled walker (FWW) Time to Achieve: 2 - 3 days Goal Status: new Gait Training Goal, [place] Level: contact guard assist Assistive Device: 2 wheeled walker (FWW) Distance: 150 feet Time to Achieve: 2 - 3 days Goal Status: new Stairs Goal, [place] Level: contact guard assist Assistive Device: (Handrails) Number of Stairs: 12 Time to Achieve: 2 - 3 days Goal Status: new LTG GOALS Bed Mobility Goal, Activity Type: roll left/roll right, scoot/bridge, supine to sit/sit to supine [place] Level: independent Assistive Device: none Time to Achieve: 1 wk Goal Status: new Transfer Training Goal, Activity Type: bed to chair /chair to bed, sit to stand/stand to si t [place] Level: modified independence Assistive Device: 2 wheeled walker (FWW) Time to Achieve: 1 wk Gait Training Goal, [place] Level: modified independence Assistive Device: 2 wheeled walker (FWW) Distance: 300 feet Time to Achieve: 1 wk Goal Status: new Number of Stairs: 16 Time to Achieve: 1 wk Goal Status: new FIM: FIM Transfers Bed/Chair/Wheelchair: 4 Bed/Chair/WC Score Evidence: 4 Steadying FIM Locomotion Walk: 2 Distance Walked (feet): 50 feet Walk Score Evidence: 2 Pt 25-49% Effort/50-149ft FIM Modifier DC Locomotion: walk FIM Modifier Walk Distance: 2 50-149 feet Stairs: 0 Stairs Score Evidence: 0 Did Not Occur Assessment: Physical therapy orders received and acknowledged. Objective impairments inclu de weakness; spasticity; decreased activity tolerance, decreased balance, deconditioning. Th abilio impairments are causing functional limitations with patient s inability to mobilize in a manner safe for home discharge. Complexities contributing to the need for skilled therapy include recent low back surgery. Rehabilitation potential: Patient demonstrates good potential to achieve established goals to address the documented impairments by participating in skilled physical therapy services . PLAN: balance training, bed mobility training, gait training, stair training, strengthening, bowling sfer training, stretching, orthotic fitting/training, patient/family education, neuromuscula r re-education Physical Therapy will follow Kevin Gutierrez [facility]. 2 times/day until discharge from therapy or discharged from the hospital. Anticipated days that therapy will be provided: 07/12/16 Physical Therapy Anticipated Discharge Needs are: Ongoing PT services required. DC disposit ion TBD. Post discharge physical therapy recommendation: TBD Equipment Recommendations: 2WW Patient and/or family has indicated understanding of treatment needs and actively participa marina in the creation of this plan for care. Today's Treatment Start Time: 1113 Stop time: 1201 Time Calculation: 48 minutes Missed Treatment Time: 0 minutes Total Treatment Time: 48 minutes TimedTreatment Code Minutes: 10 minutes Objective: Treatment Provided: PT evaluation completed and treatment initiated; bed mobility, transfer training cues for safety; gait training with cues for AD use, safety, unlevel surfaces; Education: PT plan of care; safety. Assessment: Pt able to tolerate PT evaluation with stable vitals and no adverse events. Pt requires CGA to Min A with ambulation due to low foot clearance R>L and slow, shuffling gait . He exhibits increased spasticity with some volitional movements, especially in walking wh ich manifests as a crouching gait pattern. He may have some shortening of hip flexors due t o long periods of sitting. Pt will benefit from skilled physical therapy to increase flexib ility, strength, balance and activity tolerance and reduce spasticity and tone to improve hi s safety and independence. At this time pt requires CGA using 2WW to ambulate in room and h e was instructed to call for assistance for mobility. Plan for next treatment: IRF; 2 x day; RL; 2WW; bed mobility, transfer training; balance t raining; NDT; LE stretching and strengthening; gait training Electronically signed by: Hector Davila, PT, 07/06/2016 17:46 lan of Care - Leandra Judge, Speech Pathologist - 07/06/2016 2:43 PM PDT Problem: Patient Care Overview (Adult) Goal: Care Team Goals & Evaluation PROBLEM-RELATED GOALS: 1. Pt will tolerate level 3 dysphagia advanced diet and thin liquids with no s/s of airway compromise by 07/08/16. STRATEGY TO ACHIEVE GOALS: 1. Pt will participate in ST RESTRAINT-RELATED GOALS: STRATEGIES TO ACHIEVE RESTRAINT GOALS: Speech Therapy Swallow Plan of Care Initial Evaluation Note Patient Information Patient Name: Kevin Aleman . Date of : 1945 Age: 70 y.o. History Encounter Diagnoses Code Name Primary? R26.9 Gait abnormality Yes Past Medical History Diagnosis Date GERD (gastroesophageal [...] Severe itching Acetaminophen Itching Precautions/Limitations: falls, spinal, orthotic/bracing, corrective lenses, swallowing Summary: Pt sitting upright in bed for swallow assessment. Pt c/o burning sensation in L hip and difficulty breathing. Pt reported Hx of difficulty swallowing (particularly breads and whole pills) and recently reduced appetite. Pt trialed pureed, chopped/ground, mixed chuy tures and thin liquids with no s/s of airway compromise. Pt reported increased dificulty wit h regular textures and coughed during trial of bread during swallow. UNDERWEAR TRIMMER rec's level 3 dysph agia advanced diet with thin liquids, alternate small bites with liquid wash, upright postur e during and following meals, good oral care before and after meals, reduced rate of intake. Given reported Hx of diffulty swallowing and dyspnea, Pt may be candidate for MBS to determ ine nature of pharyngeal dysphagia. Speech language pathology will follow Kevin Aleman Sr. 3 times/wk until discharge from therapy or discharged from the hospital. Speech Language Pathology Anticipated Discharge Needs are: other (see comments) (TBD) Post discharge speech language pathology recommendation: continue UNDERWEAR TRIMMER tx for dysphagia NOMS (National Outcome Measures-Standardized) FCM/NOMS Swallowin/CJ PO w/min diet rest, min cues Planned Interventions: diet texture modification, compensatory strategies UNDERWEAR TRIMMER Diagnosis: Mild pharyngeal dysphagia At bedside, signs of aspiration included: coughing, patient complaint of difficulty swallo wing and respiration changes Risk of aspiration: Mild and Moderate Swallow strategies: alternate between small bites and sips of food/liquid, check mouth fr equently for oral residue/pocketing, oral care before and after each meal, maintain upright posture during/after eating for 30 mins, slow rate Patient Status/Goals: Reflects last filed data of patient status; may be from multiple contributors. Swallow Recommendations Recommended Solid Texture: dysphagia advanced Recommended Liquid Texture: thin liquids Recommended Medication Delivery: whole pills with thin liquids, crushed pills with puree, i f able Recommended Feeding/Eating Techniques: alternate between small bites and sips of food/liqui d, check mouth frequently for oral residue/pocketing, oral care before and after each meal, maintain upright posture during/after eating for 30 mins, slow rate Swallow Non Instrumental/Clinical Swallow Exam Consistencies Trialed: thin liquids, puree, solid, mixed consistencies, other (see comments ) (chopped/ground) Mode of Presentation: self fed Volume(s) Presented (mL): patient controlled volumes Oral Phase Results: intact oral phase without signs of dysfunction Oral Residue: mid posterior tongue residue Pharyngeal Phase Results: impaired pharyngeal phase of swallowing Respiratory Concerns: decreased control/incoordination of breathing with swallow Swallowing Concerns: complaints of feeling something stuck in throat, coughing/choking duri ng swallow Additional Documentation: swallowing concerns, oral residue, respiratory concerns STG Goals Dysphagia Goal: Pt will tolerate level 3 dysphagia advanced diet and thin liquids with no s/s of airway compromise by 07/08/16. Time to Achieve Goals: 2 days Goal Status: new Today's Treatment Start Time: 1345 Stop time: 1410 Time Calculation: 25 minutes Missed Treatment Time: 0 minutes Total Treatment Time: 25 minutes TimedTreatment Code Minutes: 0 minutes Plan for next treatment: Diet check Electronically signed by: Leandra Hook, SPEECH PATHO, 07/06/2016 14:40 NTHEALTH MURRAYdoc umented in this encounter Plan of Treatment Not on filedocumented as of this encounter Procedures + +--------+ + + + | Procedure Name | Priori | Date/Time | Associated Diagnosis | Comments | | | ty | | | | + +--------+ + + + | CT HEAD WO CONTRAST | STAT | 07/15/2016 | | Results for this | | | | 11:37 PM | | procedure are in the | | | | PDT | | results section. | + +--------+ + + + | CBC WITH | STAT | 07/15/2016 | | Results for this | | DIFFERENTIAL | | 10:02 PM | | procedure are in the | | | | PDT | | results section. | + +--------+ + + + | BASIC METABOLIC | STAT | 07/15/2016 | | Results for this | | PANEL | | 10:02 PM | | procedure are in the | | | | PDT | | results section. | + +--------+ + + + | PROTIME INR | Routin | 07/15/2016 | | Results for this | | | e | 6:03 AM | | procedure are in the | | | | PDT | | results section. | + +--------+ + + + | URINALYSIS | Routin | 2016 | | Results for this | | | e | 12:14 PM | | procedure are in the | | | | PDT | | results section. | + +--------+ + + + | BASIC METABOLIC | Routin | 2016 | | Results for this | | PANEL | e | 8:46 AM | | procedure are in the | | | | PDT | | results section. | + +--------+ + + + | PROTIME INR | Routin | 2016 | | Results for this | | | e | 6:25 AM | | procedure are in the | | | | PDT | | results section. | + +--------+ + + + | XR CHEST AP PORTABLE | STAT | 07/13/2016 | | Results for this | | | | 10:09 PM | | procedure are in the | | | | PDT | | results section. | + +--------+ + + + | PROTIME INR | Routin | 07/13/2016 | | Results for this | | | e | 9:28 PM | | procedure are in the | | | | PDT | | results section. | + +--------+ + + + | POC GLUCOSE | Routin | 07/13/2016 | | Results for this | | | e | 8:55 PM | | procedure are in the | | | | PDT | | results section. | + +--------+ + + + | EXTRA LAVENDER TOP | Routin | 07/13/2016 | | Results for this | | TUBE | e | 6:13 AM | | procedure are in the | | | | PDT | | results section. | + +--------+ + + + | EXTRA GREEN TOP TUBE | Routin | 07/13/2016 | | Results for this | | | e | 6:13 AM | | procedure are in the | | | | PDT | | results section. | + +--------+ + + + | PROTIME INR | Routin | 07/13/2016 | | Results for this | | | e | 6:13 AM | | procedure are in the | | | | PDT | | results section. | + +--------+ + + + | EXTRA LAVENDER TOP | Routin | 07/12/2016 | | Results for this | | TUBE | e | 6:57 AM | | procedure are in the | | | | PDT | | results section. | + +--------+ + + + | EXTRA GREEN TOP TUBE | Routin | 07/12/2016 | | Results for this | | | e | 6:57 AM | | procedure are in the | | | | PDT | | results section. | + +--------+ + + + | PROTIME INR | Routin | 07/12/2016 | | Results for this | | | e | 6:57 AM | | procedure are in the | | | | PDT | | results section. | + +--------+ + + + | EXTRA LAVENDER TOP | Routin | 07/11/2016 | | Results for this | | TUBE | e | 6:36 AM | | procedure are in the | | | | PDT | | results section. | + +--------+ + + + | EXTRA GREEN TOP TUBE | Routin | 07/11/2016 | | Results for this | | | e | 6:36 AM | | procedure are in the | | | | PDT | | results section. | + +--------+ + + + | PROTIME INR | Routin | 07/11/2016 | | Results for this | | | e | 6:36 AM | | procedure are in the | | | | PDT | | results section. | + +--------+ + + + | EXTRA LAVENDER TOP | Routin | 07/10/2016 | | Results for this | | TUBE | e | 5:54 AM | | procedure are in the | | | | PDT | | results section. | + +--------+ + + + | PROTIME INR | Routin | 07/10/2016 | | Results for this | | | e | 5:23 AM | | procedure are in the | | | | PDT | | results section. | + +--------+ + + + | BASIC METABOLIC | Routin | 07/10/2016 | | Results for this | | PANEL | e | 5:23 AM | | procedure are in the | | | | PDT | | results section. | + +--------+ + + + | FL ESOPHAGRAM | Routin | 07/09/2016 | | Results for this | | COMPLETE | e | 8:44 AM | | procedure are in the | | | | PDT | | results section. | + +--------+ + + + | EXTRA LAVENDER TOP | Routin | 07/09/2016 | | Results for this | | TUBE | e | 5:06 AM | | procedure are in the | | | | PDT | | results section. | + +--------+ + + + | EXTRA GREEN TOP TUBE | Routin | 07/09/2016 | | Results for this | | | e | 5:06 AM | | procedure are in the | | | | PDT | | results section. | + +--------+ + + + | PROTIME INR | Routin | 07/09/2016 | | Results for this | | | e | 5:06 AM | | procedure are in the | | | | PDT | | results section. | + +--------+ + + + | XR LUMBAR SPINE 2 OR | Routin | 07/08/2016 | | Results for this | | 3 VW | e | 4:58 PM | | procedure are in the | | | | PDT | | results section. | + +--------+ + + + | CT HEAD WO CONTRAST | [facility] | 07/08/2016 | | Results for this | | | | 4:51 PM | | procedure are in the | | | | PDT | | results section. | + +--------+ + + + | ECG 12 LEAD | Routin | 07/08/2016 | | Results for this | | | e | 11:03 AM | | procedure are in the | | | | PDT | | results section. | + +--------+ + + + | PROTIME INR | STAT | 07/08/2016 | | Results for this | | | | 8:36 AM | | procedure are in the | | | | PDT | | results section. | + +--------+ + + + | EXTRA LAVENDER TOP | Routin | 07/08/2016 | | Results for this | | TUBE | e | 12:18 AM | | procedure are in the | | | | PDT | | results section. | + +--------+ + + + | POTASSIUM | Routin | 07/08/2016 | | Results for this | | | e | 12:15 AM | | procedure are in the | | | | PDT | | results section. | + +--------+ + + + | MAGNESIUM | Add-On | 07/08/2016 | | Results for this | | | | 12:15 AM | | procedure are in the | | | | PDT | | results section. | + +--------+ + + + | XR CHEST 2 VIEWS | Routin | 07/07/2016 | | Results for this | | | e | 2:35 PM | | procedure are in the | | | | PDT | | results section. | + +--------+ + + + | PROTIME INR | Routin | 07/07/2016 | | Results for this | | | e | 6:09 AM | | procedure are in the | | | | PDT | | results section. | + +--------+ + + + | CBC NO DIFFERENTIAL | Routin | 07/07/2016 | | Results for this | | | e | 6:09 AM | | procedure are in the | | | | PDT | | results section. | + +--------+ + + + | COMPREHENSIVE | Routin | 07/07/2016 | | Results for this | | METABOLIC PANEL | e | 6:09 AM | | procedure are in the | | | | PDT | | results section. | + +--------+ + + + | RESPIRATORY THERAPY | Routin | 07/06/2016 | | | | COMMUNICATION | e | 5:19 PM | | | | | | PDT | | | + +--------+ + + + documented in this encounter Results CT Head wo Contrast (07/15/2016 11:37 PM PDT) + + | Specimen | + + | | + + + + + | Narrative | Performed At | + + + | CT HEAD WO CONTRAST 07/15/2016 11:36 PM HISTORY: Lethargy. | [facility] | | COMPARISON: 07/08/2016. PROTOCOL: Axial images of the head were | | | obtained along with coronal and sagittal reformations. FINDINGS: | | | There is moderate age-related brain volume loss with enlargement of | | | the ventricles, cisterns, and sulci. A moderate amount of | | | periventricular white matter hypodensity are present, consistent with | | | small vessel ischemic disease. The brain parenchyma demonstrates no | | | evidence for acute infarct, mass lesion, or hemorrhage. The brainstem | | | is unremarkable. The cerebellum is normal. The pituitary gland is | | | grossly normal. Moderate atherosclerosis are visualized of the | | | carotid arteries. Mild right and moderate left vertebral artery | | | atherosclerosis are seen. 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 | | | Mild mucosal thickening with a gas bubble is noted in the left | | | sphenoid sinus. Mastoid air cells are normal. Calvarium, temporal | | | bones, and skull base structures are unremarkable. IMPRESSION - | | | No acute findings. Moderate senescent changes. A preliminary | | | report was sent by [employer] on 07/15/2016 at 11:54 PM with no | | | significant discrepancy. Dictated and Signed by: Judd Ansari MD | | | Electronically signed: 07/16/2016 7:43 AM | | + + + + + | Procedure Note | + + | Emre, Rad Results In - 07/16/2016 7:[address] HEAD WO CONTRAST 07/15/2016 11:36 PM | | | | HISTORY: Lethargy. | | | | COMPARISON: 07/08/2016. | | | | PROTOCOL: Axial images of the head were obtained along with coronal and sagittal | | reformations. | | | | FINDINGS: | | There is moderate age-related brain volume loss with enlargement of the | | ventricles, cisterns, and sulci. A moderate amount of periventricular white | | matter hypodensity are present, consistent with small vessel ischemic disease. | | The brain parenchyma demonstrates no evidence for acute infarct, mass lesion, or | | hemorrhage. The brainstem is unremarkable. The cerebellum is normal. The | | pituitary gland is grossly normal. | | | | Moderate atherosclerosis are visualized of the carotid arteries. Mild right and | | moderate left vertebral artery atherosclerosis are seen. | | | | Bilateral ocular prostheses are noted. Mild mucosal thickening with a gas bubble | | is noted in the left sphenoid sinus. Mastoid air cells are normal. | | | | Calvarium, temporal bones, and skull base structures are unremarkable. | | | | IMPRESSION - | | No acute findings. | | | | Moderate senescent changes. | | | | A preliminary report was sent by [employer] on 07/15/2016 at 11:54 PM with | | no significant discrepancy. | | | | Dictated and Signed by: Judd Ansari MD | | Electronically signed: 07/16/2016 7:43 AM | + + + +---------+ + + | Performing | Address | City/State/Zipcode | Phone Number | | Organization | | | | + +---------+ + + | [facility] | | | | + +---------+ + + Basic Metabolic Panel (07/15/2016 10:02 PM PDT) + + + + + + | Component | Value | Ref Range | Performed | Pathologist | | | | | At | Signature | + + + + + + | Na | 139 | 136 - 149 | [facility] | [...] + + + + | Cl | 107 | 98 - 109 mmol/L | [facility] | | | | | [facility] | | | [facility] | [facility] | | | | | [facility] - | | | | | | LABORATORY | | + + + + + + | CO2 | 28 | 24 - 31 mmol/L | [facility] | | | | | [facility] | | | | | | [facility] | | | | | | [facility] - | | | | | | LABORATORY | | + + + + + + | Anion Gap | 4 | 3 - 16 mmol/L | [facility] | | | | | | [facility] | | | | | | [facility] | | | | | | C[facility] - | | | | | | LABORATORY | | + + + + + + | Glucose | 137 (H) | 70 - 109 mg/dL | [facility] | | | | | | [facility] | | | | | | [facility] | | | | | | CENTER - | | | | | | LABORATORY | | + + + + + + | BUN | 9 | 7 - 18 mg/dL | [facility] | | | | | | [facility] | | | | | | [facility] | | | | | | CENTER - | | | | | | LABORATORY | | + + + + + + | Creatinine | 0.99 | 0.60 - 1.30 | [facility] | | | | | mg/dL | [facility] | | | | | | [facility] | | | | | | CENTER - | | | | | | LABORATORY | | + + + + + + | eGFR, | >60Comment: GLOMERULAR | >=60 | [facility] | | | non- | FILTRATION | mL/min/1.73m2 | [facility] | | | [place] | RATE,ESTIMATED | | MEDICAL | | | | mL/min/1.33i1Joka than | | CENTER - | | [...] + + + + | Calcium | 8.6 | 8.3 - 10.5 | [facility] | | | | | mg/dL | [facility] | | | | | | [facility] | | | | | | CENTER - | | | | | | LABORATORY | | + + + + + + | BUN/Creatin | 9.1 | | [facility] | | | ine Ratio | | | [facility] | | [...] [address] | [place] | [phone] | | [facility] | | [address] | | | - LABORATORY | | | | + + + + + CBC with Differential (07/15/2016 10:02 PM PDT) + + + + + + | Component | Value | Ref Range | Performed | Pathologist | | | | | At | Signature | + + + + + + | White Blood | 4.9 | 4.0 - 11.0 K/uL | [facility] | | | Cells | | | [facility] | | | | | | [facility]ICAL | | | | | | CENTER - | | | | | | LABORATORY | | + + + + + + | Red Blood | 3.32 (L) | 4.30 - 5.70 | [facility] | | | Cells | | M/uL | [facility] | | | | | | MEDICAL | | | | | | CENTER - | | | | | | LABORATORY | | + + + + + + | Hemoglobin | 11.3 (L) | 13.5 - 18.0 | [facility] | | | | | g/dL | [facility] | | | | | | MEDICAL | | | | | | CENTER - | | | | | | LABORATORY | | + + + + + + | Hematocrit | 34.0 (L) | 40.0 - 51.0 % | [facility] | | | | | | [facility] | | | | | | MEDICAL | | | | | | CENTER - | | | | | | LABORATORY | | + + + + + + | MCV | 102.3 (H) | 83.0 - 101.0 fL | [facility] | | | | | | [facility] | | | | | | MEDICAL | | | | | | CENTER - | | | | | | LABORATORY | | + + + + + + | MCH | 34.1 | 28.0 - 35.0 pg | [facility] | | | | | | [facility] | | | | | | MEDICAL | | | | | | CENTER - | | | | | | LABORATORY | | + + + + + + | MCHC | 33.3 | 32.0 - 36.0 | [facility] | | | | | g/dL | [facility] | | | | | | MEDICAL | | | | | | CENTER - | | | | | | LABORATORY | | + + + + + + | RDW-CV | 13.8 | <15.0 % | [facility] | | | | | | [facility] | | | | | | [facility]ICAL | | | | | | CENTER - | | | | | | LABORATORY | | + + + + + + | Platelet | 284 | 140 - 440 K/uL | [facility] [...] + + + + | % | 71.9 | 45.0 - 82.0 % | [facility] | | | Neutrophils | | | [facility] | | | | | | MEDICAL | | | | | | CENTER - | | | | | | LABORATORY | | + + + + + + | % | 12.0 (L) | 20.0 - 45.0 % | [facility] | | | Lymphocytes | | | [facility] | | | | | | MEDICAL | | | | | | CENTER - | | | | | | LABORATORY | | + + + + + + | % Monocytes | 13.3 (H) | 4.0 - 12.0 % | [facility] | | | | | | [facility] | | | | | | MEDICAL | | | | | | CENTER - | | | | | | LABORATORY | | + + + + + + | % | 1.9 | 0.0 - 5.0 % | [facility] | | | Eosinophils | | | [facility] | | | | | | MEDICAL | | | | | | CENTER - | | | | | | LABORATORY | | + + + + + + | % Basophils | 0.9 | 0.0 - 1.0 % | [facility] | | | | | | [facility] | | | | | | MEDICAL | | | | | | CENTER - | | | | | | LABORATORY | | + + + + + + | Absolute | 3.50 | 1.80 - 8.50 | [facility] | [...] | | Lymphocytes | | K/uL | [facility] | | | | | | MEDICAL | | | | | | CENTER - | | | | | | LABORATORY | | + + + + + + | Absolute | 0.60 | 0.00 - 1.00 | [facility] | | | Monocytes | | K/uL | [facility] | | | | | | MEDICAL | | | | | | CENTER - | | | | | | LABORATORY | | + + + + + + | Absolute | 0.10 | 0.00 - 0.40 | [facility] | | | Eosinophils | | K/uL | [facility] | | | | | | MEDICAL | | | | | | CENTER - | | | | | | LABORATORY | | + + + + + + | Absolute | 0.00 | 0.00 - 0.10 | [facility] | | | Basophils | | K/uL | [facility] | | | | | | MEDICAL [...] [address] | [place] | [phone] | | [facility] | | [address] | | | - LABORATORY | | | | + + + + + Protime INR (07/15/2016 6:03 AM PDT) + + + + + + | Component | Value | Ref Range | Performed | Pathologist | | | | | At | Signature | + + + + + + | Prothrombin | 20.3 (H) | 11.3 - 13.9 | [facility] | | | Time | | seconds | [facility] | | | | | | MEDICAL | | | | | | CENTER - | | | | | | LABORATORY | | + + + + + + | INR | 1.69 (H)Comment: Usual | 0.90 - 1.10 | [...] + + + + + | [facility] | [address] | [place] | [phone] | | [facility] | | [address] | | | - LABORATORY | | | | + + + + + Urinalysis (2016 12:14 PM PDT) + + + + + + | Component | Value | Ref Range | Performed | Pathologist | | | | | At | Signature | + + + + + + | Color, | Yellow | Light Yellow, | [facility] | | | Urine | | Yellow, Straw | [facility] | | | | | | MEDICAL | | | | | | CENTER - | | | | | | LABORATORY | | + + + + + + | Clarity, | Clear | Clear | [facility] | | | Urine | | | [facility] | | | | | | MEDICAL | | | | | | CENTER - | | | | | | LABORATORY | | + + + + + + | pH, Urine | 7.0 | 5.0 - 8.0 | [facility] | | | | | | [facility] | | | | | | MEDICAL | | | | | | CENTER - | | | | | | LABORATORY | | + + + + + + | Specific | 1.004 | 1.001 - 1.030 | [facility] | | | [place], | | | [facility] | | | Urine | | | MEDICAL | | | | | | CENTER - | | | | | | LABORATORY | | + + + + + + | Protein, | Negative | Negative | [facility] | | | Urine | | | [facility] | | | | | | MEDICAL | | | | | | CENTER - | | | | | | LABORATORY | | + + + + + + | Blood, | Negative | Negative | [facility] | | | Urine | | | [facility] | | | | | | MEDICAL | | | | | | CENTER - | | | | | | LABORATORY | | + + + + + + | Glucose, | Negative | Negative | [facility] | | | Urine | | | [facility] | | | | | | MEDICAL | | | | | | CENTER - | | | | | | LABORATORY | | + + + + + + | Ketones, | Negative | Negative | [facility] | | | Urine | | | [facility] | | | | | | MEDICAL | | | | | | CENTER - | | | | | | LABORATORY | | + + + + + + | Bilirubin, | Negative | Negative | [facility] | | | Urine | | | [facility] | | | | | | MEDICAL | | | | | | CENTER - | | | | | | LABORATORY | | + + + + + + | Nitrite, | Negative | Negative | [facility] | | | Urine | | | [facility] | | | | | | MEDICAL | | | | | | CENTER - | | | | | | LABORATORY | | + + + + + + | Leukocyte | Negative | Negative | [facility] | | | Esterase, | | | [facility] | | | Urine | | | MEDICAL | | | | | | CENTER - | | | | | | LABORATORY | | + + + + + + | Urobilinoge | Negative | 0.2 mg/dL, 1.0 | [facility] | | | n, Urine | | mg/dL, Negative | [facility] | | | | | | MEDICAL | | | | | | CENTER - | | | | | | LABORATORY | | + + + + + + + + | Specimen | + + | Urine - Urine | | specimen obtained by | | clean catch | | procedure (specimen) | + + + + + + + | Performing | Address | City/State/Zipcode | Phone Number | | Organization | | | | + + + + + | [facility] | [address] | [place], [place] | [phone] | | [facility] | | [address] | | | - LABORATORY | | | | + + + + + Basic Metabolic Panel (2016 8:46 AM PDT) + + + + + + | Component | Value | Ref Range | Performed | Pathologist | | | | | At | Signature | + + + + + + | Na | 135 (L) | 136 - 149 | [facility] | [...] + + + + | Cl | 102 | 98 - 109 mmol/L | [facility] [...] + + + + | Glucose | 101 | 70 - 109 mg/dL | [facility] | | | | | | [facility] | | | | | | MEDICAL | | | | | | CENTER - | | | | | | LABORATORY | | + + + + + + | BUN | 6 (L) | 7 - 18 mg/dL | [facility] | | | | | | [facility] | | | | | | MEDICAL | | | | | | CENTER - | | | | | | LABORATORY | | + + + + + + | Creatinine | 0.83 | 0.60 - 1.30 | [facility] | | | | | mg/dL | [facility] | | | | | | MEDICAL | | | | | | CENTER - | | | | | | LABORATORY | | + + + + + + | eGFR, | >60Comment: GLOMERULAR | >=60 | [facility] | | | non- | FILTRATION | mL/min/1.73m2 | [facility] | | | [place] | RATE,ESTIMATED | | MEDICAL | | | | mL/min/1.22l0Hafp than | | CENTER - | | [...] + + + + | Calcium | 8.8 | 8.3 - 10.5 | [facility] | | | | | mg/dL | [facility] | | | | | | MEDICAL | | | | | | CENTER - | | | | | | LABORATORY | | + + + + + + | BUN/Creatin | 7.2 | | [facility] | | | ine [...] [address] | [place] | [phone] | | [facility] | | [address] | | | - LABORATORY | | | | + + + + + Protime INR (2016 6:25 AM PDT) + + + + + + | Component | Value | Ref Range | Performed | Pathologist | | | | | At | Signature | + + + + + + | Prothrombin | 20.7 (H) | 11.3 - 13.9 | [facility] | | | Time | | seconds | [facility] | [facility] | | [facility] | | | | | | C[facility] - | | | | | | LABORATORY | | + + + + + + | INR | 1.73 (H)Comment: Usual | 0.90 - 1.10 | [facility] | | | | Oral Anticoagulation | | [facility] | | | | Range: 2.0 - [...] | [address] | [place] | [phone] | | [facility] | | [address] | | | - LABORATORY | | | | + + + + + XR Chest AP Portable (07/13/2016 10:09 PM PDT) + + | Specimen | + + | | + + + + + | Narrative | Performed At | + + + | EXAM: XR CHEST AP PORTABLE dated 07/13/2016 9:54 PM HISTORY: | [facility] | | Increased SOB and prior CXR had air space opacity. | | | Comparison: 07/07/2016 and 06/21/2016 TECHNIQUE: A single portable | | | view of the chest. FINDINGS: The lungs are symmetrically | | | aerated. Lung volumes are low. Interval resolution of the basilar | | | opacity in the right lung. There are no large pleural effusions. | | | There is no pneumothorax. Mild cardiomegaly. No acute osseous | | | abnormalities. Contrast seen within the colon. IMPRESSION - | | | Interval resolution of the right lung base parenchymal opacity. | | | Dictated and Signed by: Saji Waldron MD Electronically signed: | | | 2016 9:18 AM | | + + + + + | Procedure Note | + + | Emre, Rad Results In - 2016 9:21 AM PDT EXAM: XR CHEST AP PORTABLE dated | | 07/13/2016 9:54 PMHISTORY: Increased SOB and prior CXR had air space | | opacity.Comparison: 07/07/2016 and 06/21/2016TECHNIQUE: A single portable view of the | | chest.FINDINGS:The lungs are symmetrically aerated. Lung volumes are low. Interval | | resolutionof the basilar opacity in the right lung. There are no large pleural | | effusions. There is no pneumothorax. Mild cardiomegaly. No acute osseous | | abnormalities. Contrast seen within the colon.IMPRESSION -Interval resolution of the | | right lung base parenchymal opacity.Dictated and Signed by: Saji Waldron MD | | Electronically signed: 2016 9:18 AM | | | |The lungs are symmetrically aerated. Lung volumes are low. Interval resolution | |of the basilar opacity in the right lung. There are no large pleural effusions. | | There is no pneumothorax. Mild cardiomegaly. No acute osseous abnormalities. | |Contrast seen within the colon. | | | |IMPRESSION - | | | |Interval resolution of the right lung base parenchymal opacity. | | | |Dictated and Signed by: Saji Waldron MD | | Electronically signed: 2016 9:18 AM | + + + +---------+ + + | Performing | Address | City/State/Zipcode | Phone Number | | Organization | | | | + +---------+ + + | [facility] | | | | + +---------+ + + Protime INR (07/13/2016 9:28 PM PDT) + + + + + [...] | | Oral Anticoagulation | | [facility] | | | | Range: 2.0 - [...] + | [facility] | [address] | [place] | [phone] | | [facility] | | [address] | | | - LABORATORY | | | | + + + + + POC Glucose (07/13/2016 8:55 PM PDT) + +-------+ + + + | Component | Value | Ref Range | Performed | Pathologist | | | | | At | Signature | + +-------+ + + + | Glucose, | 109 | 70 - 150 mg/dL | [facility] | | | POC | | | [facility] | | | | [...] [address] | [place] | [phone] | | [facility] | | [address] | | | - LABORATORY | | | | + + + + + Extra Green Top Tube (07/13/2016 6:13 AM PDT) + +-------+ + + + | Component | Value | Ref Range | Performed | Pathologist | | | | | At | Signature | + +-------+ + + + | Extra Green | Done | | [facility] | | | Top Tube | | | [facility] | | | | [...] [address] | [place] | [phone] | | [facility] | | [address] | | | - LABORATORY | | | | + + + + + Extra Lavender Top Tube (07/13/2016 6:13 AM PDT) + +-------+ + + + [...] [address] | [place] | [phone] | | [facility] | | [address] | | | - LABORATORY | | | | + + + + + Protime INR (07/13/2016 6:13 AM PDT) + + + + + + | Component | Value | Ref Range | Performed | Pathologist | | | | | At | Signature | + + + + + + | Prothrombin | 19.5 (H) | 11.3 - 13.9 | [facility] | | | Time | | seconds | [facility] | | | | | | MEDICAL | | | | | | CENTER - | | | | | | LABORATORY | | + + + + + + | INR | 1.60 (H)Comment: Usual | 0.90 - 1.10 | [facility] | | | | Oral Anticoagulation | | [facility] | | | | Range: 2.0 [...] [address] | [place] | [phone] | | [facility] | | [address] | | | - LABORATORY | | | | + + + + + Extra Green Top Tube (07/12/2016 6:57 AM PDT) + +-------+ + + + | Component | Value | Ref Range | Performed | Pathologist | | | | | At | Signature | + +-------+ + + + | Extra Green | Done | | [facility] | | | Top Tube | | | [facility] | | | | | | MEDICAL [...] + + | [facility] | [address] | [place] | [phone] | | [facility] | | [address] | | | - LABORATORY | | | | + + + + + Extra Lavender Top Tube (07/12/2016 6:57 AM PDT) + +-------+ + + + | Component | Value | Ref Range | Performed | Pathologist | | | | | At | Signature | + +-------+ + + + | Extra | Done | | [facility] | | | Lavender | | | [facility] | | | Top Tube | [...] [address] | [place] | [phone] | | [facility] | | [address] | | | - LABORATORY | | | | + + + + + Protime INR (07/12/2016 6:57 AM PDT) + + + + + + | Component | Value | Ref Range | Performed | Pathologist | | | | | At | Signature | + + + + + + | Prothrombin | 17.6 (H) | 11.3 - 13.9 | [facility] | | | Time | | seconds | [facility] | | | | | | MEDICAL | | | | | | CENTER - | | | | | | LABORATORY | | + + + + + + | INR | 1.41 (H)Comment: Usual | 0.90 - 1.10 | [...] [address] | [place] | [phone] | | [facility] | | [address] | | | - LABORATORY | | | | + + + + + Extra Lavender Top Tube (07/11/2016 6:36 AM PDT) + +-------+ + + + | Component | Value | Ref Range | Performed | Pathologist | | | | | At | Signature | + +-------+ + + + | Extra | Done | | [facility] | | | Lavender | | | [facility] | | | Top Tube | | [...] [address] | [place] | [phone] | | [facility] | | [address] | | | - LABORATORY | | | | + + + + + Extra Green Top Tube (07/11/2016 6:36 AM PDT) + +-------+ + + + | Component | Value | Ref Range | Performed | Pathologist | | | | | At | Signature | + +-------+ + + + | Extra Green | Done | | [facility] | | | Top Tube | | | [facility] | | [...] [address] | [place] | [phone] | | [facility] | | [address] | | | - LABORATORY | | | | + + + + + Protime INR (07/11/2016 6:36 AM PDT) + + + + + + | Component | Value | Ref Range | Performed | Pathologist | | | | | At | Signature | + + + + + + | Prothrombin | 16.1 (H) | 11.3 - 13.9 | [facility] | | | Time | | seconds | [facility] | | | | | | MEDICAL | | | | | | CENTER - | | | | | | LABORATORY | | + + + + + + | INR | 1.26 (H)Comment: Usual | 0.90 - 1.10 | [facility] | | | | Oral Anticoagulation | | [facility] | | | | Range: 2.0 - [...] + | [facility] | [address] | [place] | [phone] | | [facility] | | [address] | | | - LABORATORY | | | | + + + + + Extra Lavender Top Tube (07/10/2016 5:54 AM PDT) + +-------+ + + + | Component | Value | Ref Range | Performed | Pathologist | | | | | At | Signature | + +-------+ + + + | Extra | Done | | [facility] | | | Lavender | | | [facility] | | | Top Tube | | [...] | [address] | [place], [place] | [phone] | | [facility] | | [address] | | | - LABORATORY | | | | + + + + + Protime INR (07/10/2016 5:23 AM PDT) + + + + + + | Component | Value | Ref Range | Performed | Pathologist | | | | | At | Signature | + + + + + + | Prothrombin | 15.3 (H) | 11.3 - 13.9 | [facility] | | | Time | | seconds | [facility] | | | | | | MEDICAL | | | | | | CENTER - | | | | | | LABORATORY | | + + + + + + | INR | 1.18 (H)Comment: Usual | 0.90 - 1.10 | [facility] | | | | Oral Anticoagulation | | [facility] | | | | Range: 2.0 - [...] + | [facility] | [address] | [place] | [phone] | | [facility] | | [address] | | | - LABORATORY | | | | + + + + + Basic Metabolic Panel (07/10/2016 5:23 AM PDT) + + + + + + | Component | Value | Ref Range | Performed | Pathologist | | | | | At | Signature | + + + + + + | Na | 135 (L) | 136 - 149 | [facility] | | | | | mmol/L | [facility] | | | | | | MEDICAL | | | | | | CENTER - | | | | | | LABORATORY | | + + + + + + | K | 3.6 | 3.5 - 5.1 | [facility] | | | | | mmol/L | [facility] | | | | | | MEDICAL | | | | | | CENTER - | | | | | | LABORATORY | | + + + + + + | Cl | 102 | 98 - 109 mmol/L | [facility] | | | | | | [facility] | | | | | | MEDICAL | | | | | | CENTER - | | | | | | LABORATORY | | + + + + + + | CO2 | 28 | 24 - 31 mmol/L | [facility] [...] + + + + | Glucose | 100 | 70 - 109 mg/dL | [facility] | | | | | | [facility] | | | | | | MEDICAL | | | | | | CENTER - | | | | | | LABORATORY | | + + + + + + | BUN | 5 (L) | 7 - 18 mg/dL | [facility] | | | | | | [facility] | | | | | | MEDICAL | | | | | | CENTER - | | | | | | LABORATORY | | + + + + + + | Creatinine | 0.77 | 0.60 - 1.30 | [facility] | | | | | mg/dL | [facility] | | | | | | MEDICAL | | | | | | CENTER - | | | | | | LABORATORY | | + + + + + + | eGFR, | >60Comment: GLOMERULAR | >=60 | [facility] | | | non- | FILTRATION | mL/min/1.73m2 | [facility] | | | [place] | RATE,ESTIMATED | | MEDICAL | | | | mL/min/1.99u5Sdkq than | | CENTER - | | [...] + + + + | Calcium | 8.2 (L) | 8.3 - 10.5 | [facility] | | | | | mg/dL | [facility] | | | | | | MEDICAL | | | | | | CENTER - | | | | | | LABORATORY | | + + + + + + | BUN/Creatin | 6.5 | | [facility] | | | ine Ratio | | | [facility] | | | | | [...] ST. | [address] | [place] | [phone] | | [facility] | | [id number] | | | - LABORATORY | | | | + + + + + FL Esophagram Complete (07/09/2016 8:44 AM PDT) + + | Specimen | + + | | + + + + + | Narrative | Performed At | + + + | [place] ESOPHAGRAM COMPLETE 07/09/2016 8:42 AM HISTORY: Mid sternum | [facility] | | pain with swallowing. COMPARISON: None. PROTOCOL: The patient | | | was not given the usual effervescent crystals due to overall | | | discomfort from recent lumbar fusion surgery. Oral barium was | | | administered by cup and straw, and fluoroscopic images of the | | | esophagus and stomach region were obtained. FINDINGS: A small | | | hiatal hernia is visualized. Significant spasm with bird beaking is | | | seen at the gastroesophageal junction, which is situated in the lower | | | chest given the presence of the hiatal hernia. There is associated | | | moderate distention of the esophagus diffusely. Mucosal pattern is | | | normal otherwise. These findings would be consistent with achalasia. | | | Imaged stomach and small bowel show no acute findings. Partially | | | imaged are hardware for lumbar fusion. IMPRESSION - Small hiatal | | | hernia. Achalasia with moderate distention of the esophagus. | | | Dictated and Signed by: Judd Ansari MD Electronically signed: | | | 07/09/2016 10:13 AM | | + + + + + | Procedure Note | + + | Emre, Rad Results In - 07/09/2016 10:16 AM PDT [place] ESOPHAGRAM COMPLETE 07/09/2016 8:42 | | AMHISTORY: Mid sternum pain with swallowing.COMPARISON: None.PROTOCOL: The patient was | | not given the usual effervescent crystals due tooverall discomfort from recent lumbar | | fusion surgery. Oral barium wasadministered by cup and straw, and fluoroscopic images of | | the esophagus andstomach region were obtained.FINDINGS:A small hiatal hernia is | | visualized. Significant spasm with bird beaking is seenat the gastroesophageal junction, | | which is situated in the lower chest given thepresence of the hiatal hernia. There is | | associated moderate distention of theesophagus diffusely. Mucosal pattern is normal | | otherwise. These findings wouldbe consistent with achalasia. Imaged stomach and small | | bowel show no acutefindings. Partially imaged are hardware for lumbar fusion.IMPRESSION | | -Small hiatal hernia.Achalasia with moderate distention of the esophagus.Dictated and | | Signed by: Judd Ansari MD Electronically signed: 07/09/2016 10:13 AM | |A small hiatal hernia is visualized. Significant spasm with bird beaking is seen | |at the gastroesophageal junction, which is situated in the lower chest given the | |presence of the hiatal hernia. There is associated moderate distention of the | |esophagus diffusely. Mucosal pattern is normal otherwise. These findings would | |be consistent with achalasia. Imaged stomach and small bowel show no acute | |findings. Partially imaged are hardware for lumbar fusion. | | | |IMPRESSION - | |Small hiatal hernia. | | | |Achalasia with moderate distention of the esophagus. | | | |Dictated and Signed by: Judd Ansari MD | | Electronically signed: 07/09/2016 10:13 AM | + + + +---------+ + + | Performing | Address | City/State/Zipcode | Phone Number | | Organization | | | | + +---------+ + + | [facility] | | | | + +---------+ + + Extra Green Top Tube (07/09/2016 5:06 AM PDT) + +-------+ + + + | Component | Value | Ref Range | Performed | Pathologist | | | | | At | Signature | + +-------+ + + + | Extra Green | Done | | [facility] | | | Top Tube | | | [facility] | | [address] | [place] | [phone] | | [facility] | | [address] | | | - LABORATORY | | | | + + + + + Extra Lavender Top Tube (07/09/2016 5:06 AM PDT) + +-------+ + + + | Component | Value | Ref Range | Performed | Pathologist | | | | | At | Signature | + +-------+ + + + | Extra | Done | | [facility] | | | Lavender | | | [facility] | | | Top Tube | | [...] + | [facility] | [address] | [place] | [phone] | | [facility] | | [address] | | | - LABORATORY | | | | + + + + + Protime INR (07/09/2016 5:06 AM PDT) + + + + + + | Component | Value | Ref Range | Performed | Pathologist | | | | | At | Signature | + + + + + + | Prothrombin | 14.2 (H) | 11.3 - 13.9 | [facility] | | | Time | | seconds | [facility] | | | | | | MEDICAL | | | | | | CENTER - | | | | | | LABORATORY | | + + + + + + | INR | 1.08Comment: Usual Oral | 0.90 - 1.10 | [facility] | | | | Anticoagulation Range: | | [facility] | | | | 2.0 - 3.0High [...] [address] | [place] | [phone] | | [facility] | | [address] | | | - LABORATORY | | | | + + + + + XR Lumbar Spine 2 or 3 Vw (07/08/2016 4:58 PM PDT) + + | Specimen | + + | | + + + + + | Narrative | Performed At | + + + | XR LUMBAR SPINE 2 OR 3 VW 07/08/2016 4:58 PM HISTORY: post-op, | [facility] | | unwitnessed fall. COMPARISON: Multiple priors. FINDINGS: | | | Again visualized are hardware for posterior fusion from L2 through L5 | | | with spacer hardware at these levels. The hardware are intact. Mild | | | subsidence is noted of the spacer hardware at L4-5 along the superior | | | aspect of L5. There is some cement at level L5. Minimal | | | retrolistheses are seen of L2 over L3, L3 over L4, and L4 over L5. | | | Bone mineralization is normal. Stable mild to moderate wedging is | | | seen of T12. There is stable mild wedging of L1. Disc height are | | | maintained. Facet joints are intact. Visualized ribs and pelvic | | | osseous structures show no acute findings. Moderate to severe | | | atherosclerosis is present. IMPRESSION - Stable posterior fusion | | | from L2 through L5. Stable wedging of T12 and L1. Dictated | | | and Signed by: Judd Ansari MD Electronically signed: 07/08/2016 | | | 5:02 PM | | + + + + + | Procedure Note | + + | Emre, Rad Results In - 07/08/2016 5:05 PM PDT XR LUMBAR SPINE 2 OR 3 VW 07/08/2016 | | 4:58 PMHISTORY: post-op, unwitnessed fall.COMPARISON: Multiple priors.FINDINGS:Again | | visualized are hardware for posterior fusion from L2 through L5 withspacer hardware at | | these levels. The hardware are intact. Mild subsidence isnoted of the spacer hardware at | | L4-5 along the superior aspect of L5. There issome cement at level L5. Minimal | | retrolistheses are seen of L2 over L3, L3 overL4, and L4 over L5. Bone mineralization is | | normal. Stable mild to moderatewedging is seen of T12. There is stable mild wedging of | | L1. Disc height aremaintained. Facet joints are intact. Visualized ribs and pelvic | | osseousstructures show no acute findings. Moderate to severe atherosclerosis | | ispresent.IMPRESSION -Stable posterior fusion from L2 through L5.Stable wedging of T12 | | and L1.Dictated and Signed by: Judd Ansari MD Electronically signed: 07/08/2016 5:02 | | PM | |wedging is seen of T12. There is stable mild wedging of L1. Disc height are | |maintained. Facet joints are intact. Visualized ribs and pelvic osseous | |structures show no acute findings. Moderate to severe atherosclerosis is | |present. | | | |IMPRESSION - | |Stable posterior fusion from L2 through L5. | | | |Stable wedging of T12 and L1. | | | |Dictated and Signed by: Judd Ansari MD | | Electronically signed: 07/08/2016 5:02 PM | + + + +---------+ + + | Performing | Address | City/State/Zipcode | Phone Number | | Organization | | | | + +---------+ + + | [facility] | | | | + +---------+ + + CT Head wo Contrast (07/08/2016 4:51 PM PDT) + + | Specimen | + + | | + + + + + | Narrative | Performed At | + + + | EXAM: CT HEAD WO CONTRAST dated 07/08/2016 4:45 PM HISTORY: | [facility] | | unwitnessed fall Comparison: None. TECHNIQUE: Noncontrast CT | | | is performed from the top of calvarium through the skull base. | | | Coronal and sagittal reformats are performed. DOSE: DLP 613.27 | | | mGy-cm FINDINGS: BRAIN: There is moderate cerebral atrophy. | | | There is associated appropriate prominence of the ventricles. No | | | areas of increased attenuation to suggest intracranial hemorrhage. | | | There is no mass, mass effect, or midline shift. There are no | | | abnormal extra-axial fluid or air collections. There is | | | preservation of the rivas-white differentiation at this time. There | | | is moderate patchy to confluent decreased density in the | | | periventricular and subcortical white matter. Evidence of remote | | | infarcts in the right caudate head and right basal ganglia. | | | SCALP/ CALVARIUM: The scalp and skull are intact and are unremarkable. | | | SINUSES / ORBITS/ MASTOIDS: The visible mastoid air cells and | | | paranasal sinuses are clear. The globes and retroconal contents are | | | intact and are unremarkable. IMPRESSION - Senescent changes | | | of the brain. Evidence of remote right caudate and basal ganglia | | | infarcts. No acute intracranial process. Dictated and | | | Signed by: Saji Waldron MD Electronically signed: 07/08/2016 | | | 5:08 PM | | + + + + + | Procedure Note | + + | Emre, Rad Results In - 07/08/2016 5:11 PM PDT EXAM: CT HEAD WO CONTRAST dated | | 07/08/2016 4:45 PMHISTORY: unwitnessed fallComparison: None.TECHNIQUE: Noncontrast CT | | is performed from the top of calvarium through theskull base. Coronal and sagittal | | reformats are performed.DOSE: DLP 613.27 mGy-cmFINDINGS: BRAIN: There is moderate | | cerebral atrophy. There is associated appropriateprominence of the ventricles. No | | areas of increased attenuation to suggestintracranial hemorrhage. There is no mass, | | mass effect, or midline shift. There are no abnormal extra-axial fluid or air | | collections. There ispreservation of the rivas-white differentiation at this time. | | There is moderatepatchy to confluent decreased density in the periventricular and | | subcorticalwhite matter. Evidence of remote infarcts in the right caudate head and | | rightbasal ganglia.SCALP/ CALVARIUM: The scalp and skull are intact and are | | unremarkable.SINUSES / ORBITS/ MASTOIDS: The visible mastoid air cells and paranasal | | sinusesare clear. The globes and retroconal contents are intact and are | | unremarkable.IMPRESSION -Senescent changes of the brain.Evidence of remote right caudate | | and basal ganglia infarcts.No acute intracranial process.Dictated and Signed by: Saji | | José Miguel Waldron MD Electronically signed: 07/08/2016 5:08 PM | |There are no abnormal extra-axial fluid or air collections. There is | |preservation of the rivas-white differentiation at this time. There is moderate | |patchy to confluent decreased density in the periventricular and subcortical | |white matter. Evidence of remote infarcts in the right caudate head and right | |basal ganglia. | | | |SCALP/ CALVARIUM: The scalp and skull are intact and are unremarkable. | | | |SINUSES / ORBITS/ MASTOIDS: The visible mastoid air cells and paranasal sinuses | |are clear. The globes and retroconal contents are intact and are unremarkable. | | | |IMPRESSION - | | | |Senescent changes of the brain. | | | |Evidence of remote right caudate and basal ganglia infarcts. | | | |No acute intracranial process. | | | | | | | |Dictated and Signed by: Saji Waldron MD | | Electronically signed: 07/08/2016 5:08 PM | + + + +---------+ + + | Performing | Address | City/State/Zipcode | Phone Number | | Organization | | | | + +---------+ + + | [facility] | | | | + +---------+ + + ECG 12 lead (07/08/2016 11:03 AM PDT) + + + + + + | Component | Value | Ref Range | Performed | Pathologist | | | | | At | Signature | + + + + + + | VENTRICULAR | 82 | BPM | [facility] | | | RATE EKG | | | | | + + + + + + | ATRIAL RATE | 82 | BPM | [facility] | | + + + + + + | P-R | 120 | ms | [facility] | | | INTERVAL | | | | | + + + + + + | QRS | 78 | ms | [facility] | | | DURATION | | | | | + + + + + + | Q-T | 394 | ms | [facility] | | | INTERVAL | | | | | + + + + + + | Q-T | 460 | ms | [facility] | | | INTERVAL | | | | | | (CORRECTED) | | | | | + + + + + + | P WAVE AXIS | 39 | degrees | [facility] | | + + + + + + | QRS AXIS | 41 | degrees | [facility] | | + + + + + + | T AXIS | 71 | degrees | [facility] | | + + + + + + | INTERPRETAT | Normal sinus rhythmLow | | [facility] | | | ION TEXT | voltage QRSBorderline | | | | | | ECGWhen compared with | | | | | | ECG of 21-JUN-2016 | | | | | | 11:50,T wave amplitude | | | | | | has decreased in Lateral | | | | | | leadsT wave morphology | | | | | | has changed in | | | | | | inferior leadsConfirmed | | | | | | by EMMA SCHMID MD | | | | | | ([id number]) on 07/10/2016 | | | | | | 7:20:43 AM | | | | + + [...] | | | + +---------+ + + Protime INR (07/08/2016 8:36 AM PDT) + + + + + + | Component | Value | Ref Range | Performed | Pathologist | | | | | At | Signature | + + + + + + | Prothrombin | 13.1 | 11.3 - 13.9 | [facility] | | | Time | | seconds | [facility] | | | | | | MEDICAL | | | | | | CENTER - | | | | | | LABORATORY | | + + + + + + | INR | 0.97Comment: Usual Oral | 0.90 - 1.10 | [...] | + + + + + | [facility] | [address] | [place] | [phone] | | [facility] | | [address] | | | - LABORATORY | | | | + + + + + Extra Lavender Top Tube (07/08/2016 12:18 AM PDT) + +-------+ + + + | Component | Value | Ref Range | Performed | Pathologist | | | | | At | Signature | + +-------+ + + + | Extra | Done | | [facility] | | | Lavender | | | [facility] | | | Top Tube | | [...] [address] | [place] | [phone] | | [facility] | | [address] | | | - LABORATORY | | | | + + + + + Magnesium (07/08/2016 12:15 AM PDT) + +-------+ + + + | Component | Value | Ref Range | Performed | Pathologist | | | | | At | Signature | + +-------+ + + + | Magnesium | 1.9 | 1.8 - 2.5 mg/dL | [facility] | | | | [...] + + | [facility] | [address] | [place] | [phone] | | [facility] | | [address] | | | - LABORATORY | | | | + + + + + Potassium (07/08/2016 12:15 AM PDT) + +---------+ + + + | Component | Value | Ref Range | Performed | Pathologist | | | | | At | Signature | + +---------+ + + + | K | 2.8 (L) | 3.5 - 5.1 | [facility] | | | | | mmol/L | [facility] | | | | | [facility] | | | | | | CENTER - | | | | | | LABORATORY | | + +---------+ + + + + + | Specimen | + + | Blood | + + + + + + + | Performing | Address | City/State/Zipcode | Phone Number | | Organization | | | | + + + + + | [facility] | [address] | [place] | [phone] | | [facility] | | [address] | | | - LABORATORY | | | | + + + + + XR Chest 2 VW (07/07/2016 2:35 PM PDT) + + | Specimen | + + | | + + + + + | Narrative | Performed At | + + + | PA AND LATERAL CHEST 07/07/2016 2:34 PM CLINICAL HISTORY: | [facility] | | hypoxia, wheezing,possible aspiration. COMPARISON: Chest | | | radiographs June 21 FINDINGS: There is calcification and | | | tortuosity of the thoracic aorta. The cardiomediastinal silhouette | | | and pulmonary vasculature are otherwise unremarkable. There is new | | | hazy reticular opacity at the right base and in the infrahilar | | | region. The lungs are clear elsewhere. Trace pleural effusions are | | | now suggested. There is no visible pneumothorax. Generalized | | | osteopenia is suggested. IMPRESSION - 1. NEW RIGHT BASILAR | | | RETICULAR OPACITY, POSSIBLY REFLECTING ATELECTASIS, ASPIRATION OR | | | DEVELOPING INFILTRATE, WITH TRACE PLEURAL EFFUSIONS. Dictated and | | | Signed by: Haroldo Andrade MD Electronically signed: 07/07/2016 4:32 | | | PM | | + + + + + | Procedure Note | + + | Emre, Rad Results In - 07/07/2016 4:35 PM PDT PA AND LATERAL CHEST 07/07/2016 2:34 PM | | | | CLINICAL HISTORY: hypoxia, wheezing,possible aspiration. | | | | COMPARISON: Chest radiographs June 21 | | | | FINDINGS: There is calcification and tortuosity of the thoracic aorta. The | | cardiomediastinal silhouette and pulmonary vasculature are otherwise | | unremarkable. There is new hazy reticular opacity at the right base and in the | | infrahilar region. The lungs are clear elsewhere. Trace pleural effusions are | | now suggested. There is no visible pneumothorax. Generalized osteopenia is | | suggested. | | | | IMPRESSION - | | | | 1. NEW RIGHT BASILAR RETICULAR OPACITY, POSSIBLY REFLECTING ATELECTASIS, | | ASPIRATION OR DEVELOPING INFILTRATE, WITH TRACE PLEURAL EFFUSIONS. | | | | Dictated and Signed by: Haroldo Andrade MD | | Electronically signed: 07/07/2016 4:32 PM | + + + +---------+ + + | Performing | Address | City/State/Zipcode | Phone Number | | Organization | | | | + +---------+ + + | [facility] | | | | + +---------+ + + Protime INR (07/07/2016 6:09 AM PDT) + + + + + + | Component | Value | Ref Range | Performed | Pathologist | | | | | At | Signature | + + + + + + | Prothrombin | 13.2 | 11.3 - 13.9 | [facility] | | | Time | | seconds | [facility] | | | | | | MEDICAL | | | | | | CENTER - | | | | | | LABORATORY | | + + + + + + | INR | 0.98Comment: Usual Oral | 0.90 - 1.10 | [facility] | | | | Anticoagulation Range: | | [facility] | | | | 2.0 - 3.0High [...] [address] | [place] | [phone] | | [facility] | | [address] | | | - LABORATORY | | | | + + + + + Comprehensive Metabolic Panel (07/07/2016 6:09 AM PDT) + + + + + + | Component | Value | Ref Range | Performed | Pathologist | | | | | At | Signature | + + + + + + | Na | 139 | 136 - 149 | [facility] | | | | | mmol/L | [facility] | | | | | | MEDICAL | | | | | | CENTER - | | | | | | LABORATORY | | + + + + + + | K | 3.4 (L) | 3.5 - 5.1 | [facility] | | | | | mmol/L | [facility] | | | | | | MEDICAL | | | | | | CENTER - | | | | | | LABORATORY | | + + + + + + | Cl | 105 | 98 - 109 mmol/L | [facility] | | | | | | [facility] | | | | | | MEDICAL | | | | | | CENTER - | | | | | | LABORATORY | | + + + + + + | CO2 | 27 | 24 - 31 mmol/L | [facility] [...] + + + + | Glucose | 99 | 70 - 109 mg/dL | [facility] | | | | | | [facility] | | | | | | MEDICAL | | | | | | CENTER - | | | | | | LABORATORY | | + + + + + + | BUN | 8 | 7 - 18 mg/dL | [place] | | | | | | [facility] | | | | | | MEDICAL | | | | | | CENTER - | | | | | | LABORATORY | | + + + + + + | Creatinine | 0.77 | 0.60 - 1.30 | [place] | | | | | mg/dL | [facility] | | | | | | MEDICAL | | | | | | CENTER - | | | | | | LABORATORY | | + + + + + + | eGFR, | >60Comment: GLOMERULAR | >=60 | [place] | | | non- | FILTRATION | mL/min/1.73m2 | [facility] | | | [place]ese | RATE,ESTIMATED | | MEDICAL | | | | mL/min/1.28p5Cvxk than | | CENTER - | | [...] + + + + | Calcium | 8.2 (L) | 8.3 - 10.5 | [facility] | | | | | mg/dL | [facility] | | | | | | MEDICAL | | | | | | CENTER - | | | | | | LABORATORY | | + + + + + + | Albumin | 2.5 (L) | 3.2 - 5.0 g/dL | [facility] | | | | | | [facility] | | | | | | MEDICAL | | | | | | CENTER - | | | | | | LABORATORY | | + + + + + + | Bilirubin | 1.3 | 0.1 - 1.5 mg/dL | [facility] | | | Total | | | [facility] | | | | | | MEDICAL | | | | | | CENTER - | | | | | | LABORATORY | | + + + + + + | Total | 5.5 (L) | 6.0 - 7.8 g/dL | [facility] | | | Protein | | | [facility] | | | | | | MEDICAL | | | | | | CENTER - | | | | | | LABORATORY | | + + + + + + | AST | 55 (H) | 10 - 42 U/L | [facility] | | | | | | [facility] | | | | | | MEDICAL | | | | | | CENTER - | | | | | | LABORATORY | | + + + + + + | ALT | 21 | 6 - 45 U/L | [facility] | | | | | | [facility] | | | | | | MEDICAL | | | | | | CENTER - | | | | | | LABORATORY | | + + + + + + | Alkaline | 49 | 40 - 110 U/L | [facility] | | | Phosphatase | | | [facility] | | | | | | MEDICAL | | | | | | CENTER - | | | | | | LABORATORY | | + + + + + + | Globulin | 3.0 | 2.1 - 3.8 g/dL | [facility] | | | | | | [facility] | | | | | | MEDICAL | | | | | | CENTER - | | | | | | LABORATORY | | + + + + + + | Albumin/Latoya | 0.8 | 0.8 - 2.0 | [facility] | | | bulin Ratio | | | [facility] | | | | | | MEDICAL | | | | | | CENTER - | | | | | | LABORATORY | | + + + + + + | BUN/Creatin | 10.4 | | [facility] | | | ine [...] [address] | [place] | [phone] | | [facility] | | [address] | | | - LABORATORY | | | | + + + + + CBC no Differential (07/07/2016 6:09 AM PDT) + + + + + + | Component | Value | Ref Range | Performed | Pathologist | | | | | At | Signature | + + + + + + | White Blood | 6.6 | 4.0 - 11.0 K/uL | [facility] | | | Cells | | | [facility] | | | | | | MEDICAL | | | | | | CENTER - | | | | | | LABORATORY | | + + + + + + | Red Blood | 3.40 (L) | 4.30 - 5.70 | [facility] | | | Cells | | M/uL | [facility] | | | | | | MEDICAL | | | | | | CENTER - | | | | | | LABORATORY | | + + + + + + | Hemoglobin | 12.2 (L) | 13.5 - 18.0 | [facility] | | | | | g/dL | [facility] | | | | | | MEDICAL | | | | | | CENTER - | | | | | | LABORATORY | | + + + + + + | Hematocrit | 35.4 (L) | 40.0 - 51.0 % | [facility] | | | | | | [facility] | | | | | | MEDICAL | | | | | | CENTER - | | | | | | LABORATORY | | + + + + + + | MCV | 104.0 (H) | 83.0 - 101.0 fL | [facility] | | | | | | [facility] | | | | | | MEDICAL | | | | | | CENTER - | | | | | | LABORATORY | | + + + + + + | MCH | 35.7 (H) | 28.0 - 35.0 pg | [facility] | | | | | | [facility] | | | | | | MEDICAL | | | | | | CENTER - | | | | | | LABORATORY | | + + + + + + | MCHC | 34.4 | 32.0 - 36.0 | [facility] | | | | | g/dL | [facility] | | | | | | MEDICAL | | | | | | CENTER - | | | | | | LABORATORY | | + + + + + + | RDW-CV | 13.3 | <15.0 % | [facility] | | | | | | 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 | + + | Foot deformity, acquired, right | + + | Mild persistent asthma with acute exacerbation Unspecified asthma, with exacerbation | + + | Hypoxia Hypoxemia | + + | Dysphagia as late effect of cerebrovascular disease Dysphagia, late effect of | | cerebrovascular disease | + + | High cholesterol Pure hypercholesterolemia | + + | Essential hypertension Unspecified essential hypertension | + + | Achalasia Achalasia and cardiospasm | + + | Back pain of thoracolumbar region Backache, unspecified | + + | Chronic anticoagulation Encounter for long-term (current) use of anticoagulants | + + | Hemiplegia, late effect of cerebrovascular disease (HCC) Hemiplegia affecting | | unspecified side, late effect of cerebrovascular disease | + + | Lumbar radiculopathy Thoracic or lumbosacral neuritis or radiculitis, unspecified | + + | Neurogenic claudication Spinal stenosis, lumbar region, with neurogenic claudication | + + | Spastic hemiplegia (HCC) Spastic hemiplegia affecting unspecified side | + + | Acute asthma flare Unspecified asthma, with exacerbation | + + | SPASTIC HEMIPLEGIA AFFECTING DOMINANT SIDE Spastic hemiplegia affecting dominant side | + + | Hypokalemia Hypopotassemia | + + | Hypertension Unspecified essential hypertension | + + documented in this encounter Administered Medications + +--------+ +--------+------+------+ | Medication Order | MAR | Action | Dose | Rate | Site | | | Action | Date | | | | + +--------+ +--------+------+------+ | albuterol 2.5 mg/3 mL nebulizer | Given | 07/12/20 | 2.5 mg | | | | solution 2.5 mg 2.5 mg, | | 16 12:43 | | | | | Nebulization, RT EVERY 4 HOURS | | AM PDT | | | | | PRN, Shortness of Breath, | | | | | | | Starting 07/06/16 at 1000, RT | | | | | | | will administer., Discharge | | | | | | | Readmit | | | | | | + +--------+ +--------+------+------+ +-------+ +--------+---+---+ | Given | 07/07/20 | 2.5 mg | | | | | 16 8:58 | | | | | | PM PDT | | | | +-------+ +--------+---+---+ | Given | 07/07/20 | 2.5 mg | | | | | 16 8:13 | | | | | | AM PDT | | | | +-------+ +--------+---+---+ +---+---+ | | | +---+---+ + +-------+ +--------+---+---+ | aluminum & magnesium | Given | 07/08/20 | 30 mLs | | | | hydroxide-simethicone (MAALOX | | 16 12:13 | | | | | PLUS REGULAR STRENGTH) 200-200-20 | | PM PDT | | | | | mg/5 mL suspension 30 mL 30 mL, | | | | | | | Oral, EVERY 6 HOURS PRN, | | | | | | | Indigestion, Starting Sat | | | | | | | 07/06/16 at 1000, Dung roth., | | | | | | | Discharge Readmit | | | | | | + +-------+ +--------+---+---+ +-------+ +--------+---+---+ | Given | 20 | 30 mLs | | | | | 16 1:04 | | | | | | AM PDT | | | | +-------+ +--------+---+---+ +---+---+ | | | +---+---+ + +-------+ +-------+---+---+ | atorvaSTATin (LIPITOR) tablet | Given | 07/15/20 | 40 mg | | | | 40 mg 40 mg, Oral, NIGHTLY, | | 16 8:46 | | | | | First dose (after last | | PM PDT | | | | | modification) on 07/06/16 at | | | | | | | 2100, Discharge Readmit | | | | | | + +-------+ +-------+---+---+ +-------+ +-------+---+---+ | Given | 07/14/20 | 40 mg | | | | | 16 8:34 | | | | | | PM PDT | | | | +-------+ +-------+---+---+ | Given | 07/13/20 | 40 mg | | | | | 16 10:39 | | | | | | PM PDT | | | | +-------+ +-------+---+---+ +---+---+ | | | +---+---+ + +-------+ +-------+---+---+ | baclofen (LIORESAL) tablet 10 | Given | 07/10/20 | 10 mg | | | | mg 10 mg, Oral, 2 TIMES DAILY, | | 16 8:11 | | | | | First dose on 07/08/16 at | | AM PDT | | | | | 0915 | | | | | | + +-------+ +-------+---+---+ +-------+ +-------+---+---+ | Given | 07/09/20 | 10 mg | | | | | 16 8:52 | | | | | | PM PDT | | | | +-------+ +-------+---+---+ | Given | 07/09/20 | 10 mg | | | | | 16 10:42 | | | | | | AM PDT | | | | +-------+ +-------+---+---+ +---+---+ | | | +---+---+ + +-------+ +-------+---+---+ | baclofen (LIORESAL) tablet 10 | Given | 07/12/20 | 10 mg | | | | mg 10 mg, Oral, 3 TIMES DAILY, | | 16 9:50 | | | | | First dose (after last | | PM PDT | | | | | modification) on Fri07/10/16 at | | | | | | | 1400 | | | | | | + +-------+ +-------+---+---+ +-------+ +-------+---+---+ | Given | 07/12/20 | 10 mg | | | | | 16 1:06 | | | | | | PM PDT | | | | +-------+ +-------+---+---+ | Given | 07/12/20 | 10 mg | | | | | 16 9:35 | | | | | | AM PDT | | | | +-------+ +-------+---+---+ +---+---+ | | | +---+---+ + +-------+ +-------+---+---+ | baclofen (LIORESAL) tablet 10 | Given | 07/15/20 | 10 mg | | | | mg 10 mg, Oral, 2 TIMES DAILY, | | 16 2:03 | | | | | First dose on 07/13/16 at | | PM PDT | | | | | 1400 | | | | | | + +-------+ +-------+---+---+ +-------+ +-------+---+---+ | Given | 07/15/20 | 10 mg | | | | | 16 9:12 | | | | | | AM PDT | | | | +-------+ +-------+---+---+ | Given | 07/14/20 | 10 mg | | | | | 16 1:39 | | | | | | PM PDT | | | | +-------+ +-------+---+---+ +---+---+ | | | +---+---+ + +-------+ +-------+---+---+ | baclofen (LIORESAL) tablet 10 | Given | 07/13/20 | 10 mg | | | | mg 10 mg, Oral, ONCE, Sat | | 16 10:39 | | | | | 07/13/16 at 1045, For 1 dose | | AM PDT | | | | + +-------+ +-------+---+---+ +---+---+ | | | +---+---+ + +-------+ +-------+---+---+ | baclofen (LIORESAL) tablet 20 | Given | 07/15/20 | 20 mg | | | | mg 20 mg, Oral, NIGHTLY, First | | 16 8:45 | | | | | dose (after last modification) on | | PM PDT | | | | | 07/13/16 at 2100 | | | | | | + +-------+ +-------+---+---+ +-------+ +-------+---+---+ | Given | 07/14/20 | 20 mg | | | | | 16 8:34 | | | | | | PM PDT | | | | +-------+ +-------+---+---+ | Given | 07/13/20 | 20 mg | | | | | 16 10:40 | | | | | | PM PDT | | | | +-------+ +-------+---+---+ +---+---+ | | | +---+---+ + +-------+ +------+---+---+ | bisacodyl (DULCOLAX) EC tablet | Given | 07/12/20 | 5 mg | | | | 5 mg 5 mg, Oral, DAILY PRN, | | 16 4:43 | | | | | Constipation, Starting Sat | | PM PDT | | | | | 07/06/16 at 1720, Do not cut or | | | | | | | crush., | | | | | | + +-------+ +------+---+---+ +-------+ +------+---+---+ | Given | 07/06/20 | 5 mg | | | | | 16 9:06 | | | | | | PM PDT | | | | +-------+ +------+---+---+ +---+---+ | | | +---+---+ + +-------+ + +---+---+ | calcium carbonate (TUMS) | Given | 07/14/20 | 1,000 mg | | | | chewable tablet 1,000 mg 1,000 | | 16 3:38 | | | | | mg, Oral, EVERY 2 HOURS PRN, | | AM PDT | | | | | Indigestion, Starting Sat | | | | | | | 07/06/16 at 1000, Discharge | | | | | | | Readmit | | | | | | + +-------+ + +---+---+ +-------+ + +---+---+ | Given | 07/11/20 | 1,000 mg | | | | | 16 3:56 | | | | | | AM PDT | | | | +-------+ + +---+---+ | Given | 07/10/20 | 1,000 mg | | | | | 16 4:08 | | | | | | AM PDT | | | | +-------+ + +---+---+ +---+---+ | | | +---+---+ + +-------+ +-------+---+---+ | citalopram (celeXA) tablet 40 | Given | 07/15/20 | 40 mg | | | | mg 40 mg, Oral, DAILY, First | | 16 9:12 | | | | | dose (after last modification) on | | AM PDT | | | | | 07/07/16 at 0900, Discharge | | | | | | | Readmit | | | | | | + +-------+ +-------+---+---+ +-------+ +-------+---+---+ | Given | 07/14/20 | 40 mg | | | | | 16 8:49 | | | | | | AM PDT | | | | +-------+ +-------+---+---+ | Given | 07/13/20 | 40 mg | | | | | 16 10:10 | | | | | | AM PDT | | | | +-------+ +-------+---+---+ +---+---+ | | | +---+---+ + +-------+ +--------+---+---+ | clindamycin (CLEOCIN) capsule | Given | 07/12/20 | 300 mg | | | | 300 mg 300 mg, Oral, EVERY 6 | | 16 1:06 | | | | | HOURS (4 times per day), First | | PM PDT | | | | | dose on 07/07/16 at 1830, | | | | | | | Indications: | | | | | | | Healthcare-Associated Pneumonia, | | | | | | | aspiration | | | | | | + +-------+ +--------+---+---+ +-------+ +--------+---+---+ | Given | 07/12/20 | 300 mg | | | | | 16 6:38 | | | | | | AM PDT | | | | +-------+ +--------+---+---+ | Given | 07/12/20 | 300 mg | | | | | 16 12:22 | | | | | | AM PDT | | | | +-------+ +--------+---+---+ +---+---+ | | | +---+---+ + +-------+ +-------+---+---+ | cyclobenzaprine (FLEXERIL) | Given | 07/09/20 | 10 mg | | | | tablet 10 mg 10 mg, Oral, EVERY | | 16 6:13 | | | | | 8 HOURS PRN, Muscle spasms, | | PM PDT | | | | | Starting 07/06/16 at 1000, | | | | | | | Use if methocarbamol ineffective | | | | | | | or not ordered., Discharge | | | | | | | Readmit | | | | | | + +-------+ +-------+---+---+ +-------+ +-------+---+---+ | Given | 07/07/20 | 10 mg | | | | | 16 9:16 | | | | | | AM PDT | | | | +-------+ +-------+---+---+ +---+---+ | | | +---+---+ + +-------+ +--------+---+---+ | docusate sodium (COLACE) | Given | 07/08/20 | 100 mg | | | | capsule 100 mg 100 mg, Oral, 2 | | 16 9:06 | | | | | TIMES DAILY, First dose (after | | AM PDT | | | | | last modification) on Sat | | | | | | | 07/06/16 at 2100, First line | | | | | | | agent for constipation, Discharge | | | | | | | Readmit | | | | | | + +-------+ +--------+---+---+ +-------+ +--------+---+---+ | Given | 07/07/20 | 100 mg | | | | | 16 9:33 | | | | | | PM PDT | | | | +-------+ +--------+---+---+ | Given | 07/07/20 | 100 mg | | | | | 16 8:58 | | | | | | AM PDT | | | | +-------+ +--------+---+---+ +---+---+ | | | +---+---+ + +-------+ +--------+---+---+ | docusate sodium (COLACE) | Given | 07/13/20 | 100 mg | | | | capsule 100 mg 100 mg, Oral, 2 | | 16 10:39 | | | | | TIMES DAILY PRN, Constipation, | | PM PDT | | | | | Starting 07/09/16 at 0800, | | | | | | | First line agent for | | | | | | | constipation, Discharge Readmit | | | | | | + +-------+ +--------+---+---+ +-------+ +--------+---+---+ | Given | 07/12/20 | 100 mg | | | | | 16 4:43 | | | | | | PM PDT | | | | +-------+ +--------+---+---+ +---+---+ | | | +---+---+ + +-------+ +---------+---+---+ | docusate-senna (SENOKOT-S) | Given | 07/07/20 | 2 | | | | 50-8.6 mg per tablet 2 tablet 2 | | 16 9:33 | tablets | | | | tablet, Oral, 2 TIMES DAILY PRN, | | PM PDT | | | | | Constipation, Starting Sat | | | | | | | 07/06/16 at 1720 | | | | | | + +-------+ +---------+---+---+ +---+---+ | | | +---+---+ + +-------+ +-------+---+ + | enoxaparin (LOVENOX) 40 mg/0.4 | Given | 07/15/20 | 40 mg | | Abdomen- | | mL injection 40 mg 40 mg, | | 16 9:12 | | | RUQ | | Subcutaneous, EVERY 24 HOURS | | AM PDT | | | | | (Daily), First dose on Sun | | | | | | | 07/07/16 at 0900 | | | | | | + +-------+ +-------+---+ + +-------+ +-------+---+ + | Given | 07/14/20 | 40 mg | | Abdomen- | | | 16 8:51 | | | RUQ | | | AM PDT | | | | +-------+ +-------+---+ + | Given | 07/13/20 | 40 mg | | Abdomen- | | | 16 10:11 | | | RLQ | | | AM PDT | | | | +-------+ +-------+---+ + +---+---+ | | | +---+---+ + +-------+ +------+---+---+ | finasteride (PROSCAR) tablet 5 | Given | 07/15/20 | 5 mg | | | | mg 5 mg, Oral, DAILY, First dose | | 16 9:12 | | | | | (after last modification) on Sun | | AM PDT | | | | | 07/07/16 at 0900, Reproductive | | | | | | | Risk: Use appropriate handling | | | | | | | precautions., Discharge Readmit | | | | | | + +-------+ +------+---+---+ +-------+ +------+---+---+ | Given | 07/14/20 | 5 mg | | | | | 16 8:50 | | | | | | AM PDT | | | | +-------+ +------+---+---+ | Given | 07/13/20 | 5 mg | | | | | 16 10:09 | | | | | | AM PDT | | | | +-------+ +------+---+---+ +---+---+ | | | +---+---+ + +-------+ +--------+---+---+ | gabapentin (NEURONTIN) capsule | Given | 07/07/20 | 100 mg | | | | 100 mg 100 mg, Oral, 4 TIMES | | 16 9:37 | | | | | DAILY PRN, burning or neuropathic | | PM PDT | | | | | pain. Try to give mainly at | | | | | | | night to prevent daytime | | | | | | | sedation., Starting 07/07/16 | | | | | | | at 1132 | | | | | | + +-------+ +--------+---+---+ +-------+ +--------+---+---+ | Given | 07/07/20 | 100 mg | | | | | 16 1:21 | | | | | | PM PDT | | | | +-------+ +--------+---+---+ +---+---+ | | | +---+---+ + +-------+ +--------+---+---+ | gabapentin (NEURONTIN) capsule | Given | 07/15/20 | 300 mg | | | | 300 mg 300 mg, Oral, 3 TIMES | | 16 8:43 | | | | | DAILY, First dose on 07/15/16 | | PM PDT | | | | | at 1400 | | | | | | + +-------+ +--------+---+---+ +-------+ +--------+---+---+ | Given | 07/15/20 | 300 mg | | | | | 16 2:02 | | | | | | PM PDT | | | | +-------+ +--------+---+---+ + +---+ | | | + +---+ | guaiFENesin (ROBITUSSIN) 100 | | | mg/5 mL liquid 200 mg 200 mg, | | | Oral, EVERY 4 HOURS PRN, Cough, | | | Starting 07/07/16 at 2127 | | + +---+ | | | + +---+ + +-------+ +---------+---+ + | influenza quadrivalent | Given | 07/14/20 | 0.5 mLs | | Deltoid- | | (FLUZONE, FLUARIX, AFLURIA | | 16 6:22 | | | Left | | QUADRIVALENT) vaccine injection | | PM PDT | | | | | (syringe) 0.5 mL 0.5 mL, | | | | | | | Intramuscular, ONE TIME VACCINE, | | | | | | | 07/14/16 at 1400, For 1 dose, | | | | | | | Give patient education | | | | | | | information. Shake prior to use., | | | | | | | | | | | | | + +-------+ +---------+---+ + +---+---+ | | | +---+---+ + +-------+ +-------+---+---+ | losartan (COZAAR) tablet 50 mg | Given | 07/15/20 | 50 mg | | | | 50 mg, Oral, DAILY, First dose | | 16 9:12 | | | | | (after last modification) on Sun | | AM PDT | | | | | 07/07/16 at 0900, Discharge | | | | | | | Readmit | | | | | | + +-------+ +-------+---+---+ +-------+ +-------+---+---+ | Given | 07/14/20 | 50 mg | | | | | 16 8:50 | | | | | | AM PDT | | | | +-------+ +-------+---+---+ | Given | 07/13/20 | 50 mg | | | | | 16 10:09 | | | | | | AM PDT | | | | +-------+ +-------+---+---+ +---+---+ | | | +---+---+ + +-------+ +---------+---+---+ | menthol (HALLS COUGH DROP) | Given | 07/07/20 | 1 | | | | lozenge 1 lozenge 1 lozenge, | | 16 9:56 | lozenge | | | | Buccal, EVERY 1 HOUR PRN, Sore | | PM PDT | | | | | Throat, Starting 07/07/16 at | | | | | | | 2148, Maxiumum 12 lozenges per 24 | | | | | | | hours., | | | | | | + +-------+ +---------+---+---+ +---+---+ | | | +---+---+ + +-------+ +---+---+---+ | miconazole (MICATIN) 2% powder | Given | 07/15/20 | | | | | Topical, 2 TIMES DAILY, First | | 16 8:54 | | | | | dose on e 07/09/16 at 1215, | | PM PDT | | | | | Apply to groin and becky area, | | | | | | + +-------+ +---+---+---+ +-------+ +---+---+---+ | Given | 07/15/20 | | | | | | 16 9:28 | | | | | | AM PDT | | | | +-------+ +---+---+---+ | Given | 07/14/20 | | | | | | 16 8:36 | | | | | | PM PDT | | | | +-------+ +---+---+---+ +---+---+ | | | +---+---+ + +-------+ +--------+---+---+ | mycophenolate (CELLCEPT) | Given | 07/15/20 | 500 mg | | | | capsule 500 mg 500 mg, Oral, | | 16 9:12 | | | | | EVERY MORNING, First dose (after | | AM PDT | | | | | last modification) on Sun | | | | | | | 07/07/16 at 0900, Discharge | | | | | | | Readmit | | | | | | + +-------+ +--------+---+---+ +-------+ +--------+---+---+ | Given | 07/14/20 | 500 mg | | | | | 16 8:51 | | | | | | AM PDT | | | | +-------+ +--------+---+---+ | Given | 07/13/20 | 500 mg | | | | | 16 10:09 | | | | | | AM PDT | | | | +-------+ +--------+---+---+ +---+---+ | | | +---+---+ + +-------+ +---+---+---+ | nystatin (MYCOSTATIN) cream | Given | 07/15/20 | | | | | Topical, 2 TIMES DAILY, First | | 16 8:55 | | | | | dose on e 07/09/16 at 1215, | | PM PDT | | | | | Rash facial folds, | | | | | | + +-------+ +---+---+---+ +-------+ +---+---+---+ | Given | 07/15/20 | | | | | | 16 9:28 | | | | | | AM PDT | | | | +-------+ +---+---+---+ | Given | 07/14/20 | | | | | | 16 8:36 | | | | | | PM PDT | | | | +-------+ +---+---+---+ + +---+ | | | + +---+ | oxyCODONE (ROXICODONE) tablet | | | 2.5 mg 2.5 mg, Oral, EVERY 4 | | | HOURS PRN, Pain, Starting Mon | | | 07/15/16 at 2145, Discharge | | | Readmit | | + +---+ | | | + +---+ + +-------+ +------+---+---+ | oxyCODONE (ROXICODONE) tablet | Given | 07/15/20 | 5 mg | | | | 5-20 mg 5-20 mg, Oral, EVERY 4 | | 16 8:44 | | | | | HOURS PRN, Pain, Starting Sat | | PM PDT | | | | | 07/06/16 at 1000, Discharge | | | | | | | Readmit | | | | | | + +-------+ +------+---+---+ +-------+ +------+---+---+ | Given | 07/15/20 | 5 mg | | | | | 16 2:02 | | | | | | PM PDT | | | | +-------+ +------+---+---+ | Given | 07/15/20 | 5 mg | | | | | 16 4:43 | | | | | | AM PDT | | | | +-------+ +------+---+---+ +---+---+ | | | +---+---+ + +-------+ +-------+---+---+ | pantoprazole (PROTONIX) DR | Given | 07/15/20 | 40 mg | | | | tablet 40 mg 40 mg, Oral, DAILY | | 16 6:09 | | | | | BEFORE BREAKFAST, First dose | | AM PDT | | | | | (after last modification) on Sun | | | | | | | 07/07/16 at 0730, Do not cut or | | | | | | | crush. Therapeutic Interchange | | | | | | | for omeprazole., Discharge | | | | | | | Readmit | | | | | | + +-------+ +-------+---+---+ +-------+ +-------+---+---+ | Given | 07/14/20 | 40 mg | | | | | 16 6:53 | | | | | | AM PDT | | | | +-------+ +-------+---+---+ | Given | 07/13/20 | 40 mg | | | | | 16 6:30 | | | | | | AM PDT | | | | +-------+ +-------+---+---+ + +---+ | | | + +---+ | pharmacy to dose warfarin | | | PHARMACY CONSULT, Starting Sat | | | 07/06/16 at 1349, What is the | | | goal INR range for this patient? | | | 2-3 | | + +---+ | | | + +---+ + +-------+ +--------+---+---+ | potassium chloride (K-DUR) ER | Given | 07/10/20 | 20 mEq | | | | tablet 20 mEq 20 mEq, Oral, 2 | | 16 8:08 | | | | | TIMES DAILY, First dose on Mon | | AM PDT | | | | | 07/08/16 at 0900 | | | | | | + +-------+ +--------+---+---+ +-------+ +--------+---+---+ | Given | 07/09/20 | 20 mEq | | | | | 16 8:52 | | | | | | PM PDT | | | | +-------+ +--------+---+---+ | Given | 07/09/20 | 20 mEq | | | | | 16 10:41 | | | | | | AM PDT | | | | +-------+ +--------+---+---+ +---+---+ | | | +---+---+ + +-------+ +--------+---+---+ | potassium chloride (K-DUR) ER | Given | 07/15/20 | 20 mEq | | | | tablet 20 mEq 20 mEq, Oral, 2 | | 16 8:43 | | | | | TIMES DAILY, First dose on Radha | | PM PDT | | | | | 07/11/16 at 2115 | | | | | | + +-------+ +--------+---+---+ +-------+ +--------+---+---+ | Given | 07/15/20 | 20 mEq | | | | | 16 9:12 | | | | | | AM PDT | | | | +-------+ +--------+---+---+ | Given | 07/14/20 | 20 mEq | | | | | 16 8:34 | | | | | | PM PDT | | | | +-------+ +--------+---+---+ +---+---+ | | | +---+---+ + +-------+ +--------+---+---+ | potassium chloride (K-DUR) ER | Given | 07/08/20 | 40 mEq | | | | tablet 40 mEq 40 mEq, Oral, | | 16 12:59 | | | | | ONCE, 07/08/16 at 0115, For 1 | | AM PDT | | | | | dose | | | | | | + +-------+ +--------+---+---+ +---+---+ | | | +---+---+ + +-------+ +--------+---+---+ | potassium chloride (KLOR-CON) | Given | 07/11/20 | 20 mEq | | | | packet 20 mEq 20 mEq, Oral, 2 | | 16 9:05 | | | | | TIMES DAILY, First dose on Wed | | AM PDT | | | | | 07/10/16 at 2100, For partial | | | | | | | doses, reconstitute as directed, | | | | | | | then administer the dose | | | | | | | ordered., | | | | | | + +-------+ +--------+---+---+ +-------+ +--------+---+---+ | Given | 07/10/20 | 20 mEq | | | | | 16 8:59 | | | | | | PM PDT | | | | +-------+ +--------+---+---+ +---+---+ | | | +---+---+ + +-------+ +--------+---+---+ | senna (SENOKOT) tablet 8.6 mg | Given | 07/07/20 | 8.6 mg | | | | 8.6 mg, Oral, NIGHTLY, First dose | | 16 9:33 | | | | | (after last modification) on Sat | | PM PDT | | | | | 07/06/16 at 2100, If docusate | | | | | | | ineffective or not ordered, | | | | | | | Discharge Readmit | | | | | | + +-------+ +--------+---+---+ +-------+ +--------+---+---+ | Given | 07/06/20 | 8.6 mg | | | | | 16 9:06 | | | | | | PM PDT | | | | +-------+ +--------+---+---+ +---+---+ | | | +---+---+ + +-------+ +--------+---+---+ | senna (SENOKOT) tablet 8.6 mg | Given | 07/13/20 | 8.6 mg | | | | 8.6 mg, Oral, NIGHTLY PRN, | | 16 10:39 | | | | | Constipation, Starting Tue | | PM PDT | | | | | 07/09/16 at 0800, If docusate | | | | | | | ineffective or not ordered, | | | | | | | Discharge Readmit | | | | | | + +-------+ +--------+---+---+ +-------+ +--------+---+---+ | Given | 07/12/20 | 8.6 mg | | | | | 16 4:43 | | | | | | PM PDT | | | | +-------+ +--------+---+---+ +---+---+ | | | +---+---+ + +---------+ +--------+-------+---+ | sodium chloride 0.9% (NS) bolus | New Bag | 07/15/20 | 1,000 | 100 | | | 1,000 mL 1,000 mL, Intravenous, | | 16 10:51 | mLs | mL/hr | | | Administer over 10 Hours, ONCE, | | PM PDT | | | | | 07/15/16 at 2300, For 1 dose | | | | | | + +---------+ +--------+-------+---+ +---+---+ | | | +---+---+ + +---------+ +---------+-------+---+ | sodium chloride 0.9% (NS) bolus | New Bag | 07/15/20 | 500 mLs | 999 | | | 500 mL 500 mL, Intravenous, | | 16 9:58 | | mL/hr | | | Administer over 15-30 Minutes, | | PM PDT | | | | | ONCE, 07/15/16 at 2215, For 1 | | | | | | | dose | | | | | | + +---------+ +---------+-------+---+ +---+---+ | | | +---+---+ + +-------+ +------+---+---+ | tiZANidine (ZANAFLEX) tablet 4 | Given | 07/10/20 | 4 mg | | | | mg 4 mg, Oral, NIGHTLY, First | | 16 8:59 | | | | | dose on Fri07/10/16 at 2100, | | PM PDT | | | | | Discharge Readmit | | | | | | + +-------+ +------+---+---+ +---+---+ | | | +---+---+ + +-------+ +------+---+---+ | tiZANidine (ZANAFLEX) tablet 4 | Given | 07/15/20 | 4 mg | | | | mg 4 mg, Oral, NIGHTLY, First | | 16 6:34 | | | | | dose (after last modification) on | | PM PDT | | | | | Radha 07/11/16 at 1800, Discharge | | | | | | | Readmit | | | | | | + +-------+ +------+---+---+ +-------+ +------+---+---+ | Given | 07/14/20 | 4 mg | | | | | 16 6:13 | | | | | | PM PDT | | | | +-------+ +------+---+---+ | Given | 07/13/20 | 4 mg | | | | | 16 5:50 | | | | | | PM PDT | | | | +-------+ +------+---+---+ +---+---+ | | | +---+---+ + +-------+ +-------+---+---+ | traZODone (DESYREL) tablet 25 | Given | 07/15/20 | 25 mg | | | | mg 25 mg, Oral, NIGHTLY PRN, | | 16 8:46 | | | | | Insomnia, Starting 07/10/16 | | PM PDT | | | | | at 0907, May repeat x 1 dose if | | | | | | | patient is less than 65 years | | | | | | | old. Caution: Medications may | | | | | | | pose a fall risk, Discharge | | | | | | | Readmit | | | | | | + +-------+ +-------+---+---+ +-------+ +-------+---+---+ | Given | 07/14/20 | 25 mg | | | | | 16 3:39 | | | | | | AM PDT | | | | +-------+ +-------+---+---+ +---+---+ | | | +---+---+ + +-------+ +--------+---+---+ | warfarin (COUMADIN) tablet 2.5 | Given | 07/07/20 | 2.5 mg | | | | mg 2.5 mg, Oral, Daily - | | 16 6:41 | | | | | Warfarin, First dose on Sat | | PM PDT | | | | | 07/06/16 at 1800, Reproductive | | | | | | | Risk: Use appropriate handling | | | | | | | precautions. Drug education | | | | | | | required., | | | | | | + +-------+ +--------+---+---+ +-------+ +--------+---+---+ | Given | 07/06/20 | 2.5 mg | | | | | 16 5:50 | | | | | | PM PDT | | | | +-------+ +--------+---+---+ +---+---+ | | | +---+---+ + +-------+ +--------+---+---+ | warfarin (COUMADIN) tablet 2.5 | Given | 07/09/20 | 2.5 mg | | | | mg 2.5 mg, Oral, USER SPECIFIED | | 16 6:11 | | | | | (Once per day on Fri Fri | | PM PDT | | | | | Sat), First dose on Fri07/09/16 | | | | | | | at 1800, Reproductive Risk: Use | | | | | | | appropriate handling precautions. | | | | | | | Drug education required., | | | | | | + +-------+ +--------+---+---+ +---+---+ | | | +---+---+ + +-------+ +------+---+---+ | warfarin (COUMADIN) tablet 5 mg | Given | 07/08/20 | 5 mg | | | | 5 mg, Oral, Once - Warfarin, | | 16 5:31 | | | | | First dose on Fri07/08/16 at | | PM PDT | | | | | 1800, For 1 dose, Reproductive | | | | | | | Risk: Use appropriate handling | | | | | | | precautions. Drug education | | | | | | | required., | | | | | | + +-------+ +------+---+---+ +---+---+ | | | +---+---+ + +-------+ +------+---+---+ | warfarin (COUMADIN) tablet 5 mg | Given | 07/10/20 | 5 mg | | | | 5 mg, Oral, USER SPECIFIED | | 16 6:16 | | | | | (Once per day on Fri), First | | PM PDT | | | | | dose on Fri07/10/16 at 1800, | | | | | | | Reproductive Risk: Use | | | | | | | appropriate handling precautions. | | | | | | | Drug education required., | | | | | | + +-------+ +------+---+---+ +---+---+ | | | +---+---+ + +-------+ +------+---+---+ | warfarin (COUMADIN) tablet 5 mg | Given | 07/12/20 | 5 mg | | | | 5 mg, Oral, Daily - Warfarin, | | 16 6:07 | | | | | First dose on Fri07/11/16 at | | PM PDT | | | | | 1800, Reproductive Risk: Use | | | | | | | appropriate handling precautions. | | | | | | | Drug education required., | | | | | | + +-------+ +------+---+---+ +-------+ +------+---+---+ | Given | 07/11/20 | 5 mg | | | | | 16 6:21 | | | | | | PM PDT | | | | +-------+ +------+---+---+ +---+---+ | | | +---+---+ + +-------+ +------+---+---+ | warfarin (COUMADIN) tablet 5 mg | Given | 07/14/20 | 5 mg | | | | 5 mg, Oral, Daily - Warfarin, | | 16 6:13 | | | | | First dose on 07/14/16 at | | PM PDT | | | | | 1800, Reproductive Risk: Use | | | | | | | appropriate handling precautions. | | | | | | | Drug education required., | | | | | | + +-------+ +------+---+---+ +---+---+ | | | +---+---+ + +-------+ +--------+---+---+ | warfarin (COUMADIN) tablet 7.5 | Given | 07/13/20 | 7.5 mg | | | | mg 7.5 mg, Oral, Once - | | 16 5:50 | | | | | Warfarin, First dose on Sat | | PM PDT | | | | | 07/13/16 at 1800, For 1 dose, | | | | | | | Reproductive Risk: Use | | | | | | | appropriate handling precautions. | | | | | | | Drug education required., | | | | | | + +-------+ +--------+---+---+ +---+---+ | | | +---+---+ + +-------+ +--------+---+---+ | warfarin (COUMADIN) tablet 7.5 | Given | 07/15/20 | 7.5 mg | | | | mg 7.5 mg, Oral, Daily - | | 16 6:34 | | | | | Warfarin, First dose (after last | | PM PDT | | | | | modification) on 07/15/16 at | | | | | | | 1800, Reproductive Risk: Use | | | | | | | appropriate handling precautions. | | | | | | | Drug education required., | | | | | | + +-------+ +--------+---+---+ +---+---+ | | | +---+---+ documented in this encounter
--- OUTSIDE RECORDS SUMMARY | ~2020-06-26 | XMS | Encounter Summary ---
Demographics + + + | Address | [address] | | | [place] [address] | + + + | Home Phone | | + + + | Preferred Language | Unknown | + + + | Marital Status | | + + + | Amish Affiliation | Unknown | + + + | Race | White | + + + | Ethnic Group | Not or | + + + Author + + + | Author | [facility] | | [...] [place] | | | | | [address] | | + + + + + Care Team Providers + +------+ + | Care Motor Operator Name | Role | Phone | + +------+ + | Almas Licea MD | PCP | | + +------+ + Encounter Details +--------+ + + + + | Date | Type | Department | Care Team | Description | +--------+ + + + + | 06/21/ | Hospital | [facility] | William Garcia MD | Lumbar | | 2016 | Encounter | MED CTR XRAY [address] | [address] | radiculopathy; | | | | [place] | [place] [address] | Myelopathy (HCC); | | | | [place] [address] | [phone] | Foot deformity, | | | | [phone] | | acquired, | | | | | Anjel Patel MD | unspecified | | | | | [address] | laterality; Pain in | | | | | [place], [place] | extremity, | | | | | [address] | unspecified | | | | | | extremity; Back pain | | | | | | of thoracolumbar | | | | | | region - left flank | | | | | | region; Facet | | | | | | arthritis of lumbar | | | | | | region (HCC); | | | | | | Trochanteric | | | | | | bursitis of right | | | | | | hip; | | | | | | Spondylolisthesis, | | | | | | lumbar region; DDD | | | | | | (degenerative disc | | | | | | disease), lumbar; | | | | | | Lumbar facet | | | | | | arthropathy; | | | | | | Neurogenic | | | | | | claudication; DDD | | | | | | (degenerative disc | | | | | | disease), cervical; | | | | | | Postural kyphosis of | | | | | | lumbar region | +--------+ + + + + Social [...] +--------+ + + + | XR CHEST PA AND | Routin | 06/21/2016 | Lumbar | Results for this | | LATERAL | e | 12:14 PM | radiculopathy | procedure are in the | | | | PDT | Myelopathy ([facility]) | results section. | | | | | Foot deformity, | | | | | | acquired, | | | | | | unspecified | | | | | | laterality Pain in | | | | | | extremity, | | | | | | unspecified | | | | | | extremity Back pain | | | | | | of thoracolumbar | | | | | | region - left flank | | | | | | region Facet | | | | | | arthritis of lumbar | | | | | | region ([facility]) | | | | | | Trochanteric | | | | | | bursitis of right | | | | | | hip | | | | | | Spondylolisthesis, | | | | | | lumbar region DDD | | | | | | (degenerative disc | | | | | | disease), lumbar | | | | | | Lumbar facet | | | | | | arthropathy | | | | | | Neurogenic | | | | | | claudication DDD | | | | | | (degenerative disc | | | | | | disease), cervical | | | | | | Postural kyphosis of | | | | | | lumbar region | | + +--------+ + + + documented in this encounter Results XR Chest PA and Lateral (06/21/2016 12:14 PM PDT) + + | Specimen | + + | | + + + + + | Narrative | Performed At | + + + | EXAM: XR CHEST PA AND LATERAL HISTORY: preoperative | [facility] | | clearance TECHNIQUE: Upright PA and Lateral Chest | [facility] | | COMPARISON: None. FINDINGS: Heart is normal size. The | [facility] | | aorta is mildly tortuous with atherosclerotic calcifications. | - IMAGING | | Mediastinal and hilar contours are within normal limits. The lungs | | | are clear. No pleural effusion. No pneumothorax. No acute osseous | | | abnormality. IMPRESSION - No acute cardiopulmonary abnormality. | | | CRITICAL VALUE: No. Dictated and Signed by: Alonzo Davey MD | | | Electronically signed: 06/21/2016 12:24 PM | | + + + + + | Procedure Note | + + | Emre, Rad Results In - 06/21/2016 12:27 PM PDT EXAM: XR CHEST PA AND LATERAL | | | | HISTORY: preoperative clearance | | | | TECHNIQUE: Upright PA and Lateral Chest | | | | COMPARISON: None. | | | | FINDINGS: | | | | Heart is normal size. The aorta is mildly tortuous with atherosclerotic | | calcifications. | | Mediastinal and hilar contours are within normal limits. | | The lungs are clear. No pleural effusion. No pneumothorax. | | No acute osseous abnormality. | | | | IMPRESSION - | | No acute cardiopulmonary abnormality. | | | | CRITICAL VALUE: No. | | | | Dictated and Signed by: Alonzo Davey MD | | Electronically signed: 06/21/2016 12:24 PM | + + + + + + + | Performing | Address | City/State/Zipcode | Phone Number | | Organization | | | | + + + + + | [facility] | [address] 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
--- OUTSIDE RECORDS SUMMARY | ~2020-06-26 | XMS | Encounter Summary ---
Demographics + + + | Address | [address] | | | [place] [address] | + + + | Home Phone | | + + + | Preferred Language | Unknown | + + + | Marital Status | | + + + | Oriental Orthodox Affiliation | Unknown | + + + | Race | White | + + + | Ethnic Group | Not or | + + + Author + + + | Author | [facility] | | | and [place] | + + + | Organization | [facility] | | [...] [place] | | | | | [address] | | + + + + + Care Team Providers + +------+ + | Care Work Manager Name | Role | Phone | + +------+ + | Almas Licea MD | PCP | | + +------+ + Encounter Details +--------+ + + + + | Date | Type | Department | Care Team | Description | +--------+ + + + + | 05/14/ | Orders Only | [facility] [place] | William Garcia MD | Lumbar radiculopathy | | 2015 | | NEUROSURGERY [address] | [address] | (Primary Dx); | | | | [address] | [place] [address] | Myelopathy (HCC); | | | | [place], [place] | [phone] | Foot deformity, | | | | [address] | | acquired, | | | | [phone] | | unspecified | | | | | | laterality; Pain in | | | [...] filedocumented as of this encounter Results XR Chest PA and [...] ST. | [address] | [place], [place] | [phone] | | [facility] | | [address] | | | - IMAGING | | | | + + + + + CBC with Differential (06/21/2016 11:54 AM PDT) + + + + + + | Component | Value | Ref Range | Performed | Pathologist | | | | | At | Signature | + + + + + + | White Blood | 7.0 | 4.0 - 11.0 K/uL | [facility] | | | Cells | | | [facility] | | | | | | MEDICAL | | | | | | CENTER - | | | | | | LABORATORY | | + + + + + + | Red Blood | 4.67 | 4.30 - 5.70 | [facility] | | | Cells | | M/uL | [facility] | | | | | | MEDICAL | | | | | | CENTER - | | | | | | LABORATORY | | + + + + + + | Hemoglobin | 16.4 | 13.5 - 18.0 | [facility] | | | | | g/dL | [facility] | | | | | | MEDICAL | | | | | | CENTER - | | | | | | LABORATORY | | + + + + + + | Hematocrit | 48.9 | 40.0 - 51.0 % | [facility] | | | | | | [facility] | | | | | | MEDICAL | | | | | | CENTER - | | | | | | LABORATORY | | + + + + + + | MCV | 104.7 (H) | 83.0 - 101.0 fL | [facility] | | | | | | [facility] | | | | | | MEDICAL | | | | | | CENTER - | | | | | | LABORATORY | | + + + + + + | MCH | 35.2 (H) | 28.0 - 35.0 pg | [facility] | | | | | | [facility] | | | | | | MEDICAL | | | | | | CENTER - | | | | | | LABORATORY | | + + + + + + | MCHC | 33.6 | 32.0 - 36.0 | [facility] | [...] + + + + | Platelet | 175 | 140 - 440 K/uL | [facility] | | | Count | | | [facility] | | | | | | MEDICAL | | | | | | CENTER - | | | | | | LABORATORY | | + + + + + + | MPV | 7.9 | fL | [facility] | | | | | | [facility] | | | | | | MEDICAL | | | | | | CENTER - | | | | | | LABORATORY | | + + + + + + | % | 73.7 | 45.0 - 82.0 % | [facility] | | | Neutrophils | | | [facility] | | | | | | MEDICAL | | | | | | CENTER - | | | | | | LABORATORY | | + + + + + + | % | 13.6 (L) | 20.0 - 45.0 % | [facility] | | | Lymphocytes | | | [facility] | | | | | | MEDICAL | | | | | | CENTER - | | | | | | LABORATORY | | + + + + + + | % Monocytes | 10.6 | 4.0 - 12.0 % | [facility] | | | | | | [facility] | | | | | | MEDICAL | | | | | | CENTER - | | | | | | LABORATORY | | + + + + + + | % | 1.1 | 0.0 - 5.0 % | [facility] | | | Eosinophils | | | [facility] | | | | | | MEDICAL | | | | | | CENTER - | | | | | | LABORATORY | | + + + + + + | % Basophils | 1.0 | 0.0 - 1.0 % | [facility] | | | | | | [facility] | | | | | | MEDICAL | | | | | | CENTER - | | | | | | LABORATORY | | + + + + + + | Absolute | 5.20 | 1.80 - 8.50 | [facility] | | | Neutrophils | | K/uL | [facility] | | | | | | MEDICAL | | | | | | CENTER - | | | | | | LABORATORY | | + + + + + + | Absolute | 1.00 | 0.60 - 3.20 | [facility] | | | Lymphocytes | | K/uL | [facility] | [...] | 0.10 | 0.00 - 0.10 | [facility] | | | Basophils | | K/uL | [facility] | | | | | [...] [address] | [place] | [phone] | | [facility] | | [address] | | | - LABORATORY | | | | + + + + + Basic Metabolic Panel (06/21/2016 11:54 AM PDT) + + + + + [...] + + + + | Cl | 103 | 98 - 109 mmol/L | [facility] [...] + + + | Anion Gap | 8 | 3 - 16 mmol/L | [facility] | | | | | | [facility] | | | | | | MEDICAL | | | | | | CENTER - | | | | | | LABORATORY | | + + + + + + | Glucose | 94 | 70 - 109 mg/dL | [facility] | | | | | | [facility] | | | | | | MEDICAL | | | | | | CENTER - | | | | | | LABORATORY | | + + + + + + | BUN | 9 | 7 - 18 mg/dL | [facility] [place] | | | | | | [facility] | | | | | | MEDICAL | | | | | | CENTER - | | | | | | LABORATORY | | + + + + + + | Creatinine | 0.96 | 0.60 - 1.30 | [place] | | | | | mg/dL | [facility] | | | | | | MEDICAL | | | | | | CENTER - | | | | | | LABORATORY | | + + + + + + | eGFR, | >60Comment: GLOMERULAR | >=60 | [facility] | | | non- | FILTRATION | mL/min/1.73m2 | [facility] | | | [place] | RATE,ESTIMATED | | MEDICAL | | | | mL/min/1.29v6Ymvj than | | CENTER - | | [...] + + + + | Calcium | 9.1 | 8.3 - 10.5 | [facility] | | | | | mg/dL | [facility] | | | | | | MEDICAL | | | | | | CENTER - | | | | | | LABORATORY | | + + + + + + | BUN/Creatin | 9.4 | | [facility] | | | ine [...] + | [facility] | [address] | [place] | [phone] | | [facility] | | [address] | | | - LABORATORY | | | | + + + + + ECG 12 lead (06/21/2016 11:50 AM PDT) + + + + + + | Component | Value | Ref Range | Performed | Pathologist | | | | | At | Signature | + + + + + + | VENTRICULAR | 72 | BPM | [facility] | | | RATE EKG | | | | | + + + + + + | ATRIAL RATE | 72 | BPM | [facility] | | + + + + + + | P-R | 162 | ms | [facility] | | | INTERVAL | | | | | + + + + + + | QRS | 78 | ms | [facility] | | | DURATION | | | | | + + + + + + | Q-T | 408 | ms | [facility] | | | INTERVAL | | | | | + + + + + + | Q-T | 446 | ms | [facility] | | | INTERVAL | | | | | | (CORRECTED) | | | | | + + + + + + | P WAVE AXIS | 58 | degrees | [facility] | | + + + + + + | QRS AXIS | -27 | degrees | [facility] | | + + + + + + | T AXIS | 25 | degrees | [facility] | | + + + + + + | INTERPRETAT | Normal sinus | | [facility] | | | ION TEXT | rhythmNormal ECGNo | | | | | | previous ECGs | | | | | | availableConfirmed by | | | | | | EMMA SCHMID MD ([id number]) | | | | | | on 06/23/2016 8:56:29 AM | | | | + + [...] | | unspecified | + + | Myelopathy (HCC) [...]
--- OUTSIDE RECORDS SUMMARY | ~2020-06-26 | XMS | Encounter Summary ---
Demographics + + + | Address | [address] | | | [place] [address] | + + + | Home Phone | | + + + | Preferred Language | Unknown | + + + | Marital Status | | + + + | Alevism Affiliation | Unknown | + + + | Race | White | + + + | Ethnic Group | Not or | + + + Author + + + | Author | [facility] | | | and [...] [place] | | | | | [address] | | + + + + + Care Team Providers + +------+ + | Care Felt Tipping Machine Tender Name | Role | Phone | + +------+ + | Almas Licea MD | PCP | | + +------+ + Reason for Visit + +--------+ + | Reason | Onset | Comments | | | Date | | + +--------+ + | Imaging Only | 10/10/ | | | | 2015 | | + +--------+ + Encounter Details +--------+ + + + + | Date | Type | Department | Care Team | Description | +--------+ + + + + | 10/10/ | Telephone | [facility] | Matt Sandoval | Imaging Only | | 2015 | | NEUROSURGERY [address] | [address] | | | | | [address] | [address] [place] [place], [place] | | | | | [place], [place] | [id number] | | | | | [address] | | | | | | [phone] | | | +--------+ + + + [...] this encounter Miscellaneous Notes Telephone Encounter - Cielo Quiles RN - 10/10/2015 9:36 AM PSTPlease review MRI of th oracic and cervical spine that were requested at last OV 09/29/15. His next OV is 10/12/15.Marifer ctronically signed by Cielo Quiles RN at 10/10/2015 9:39 AM PSTdocumented in this encou nter Plan of Treatment Not on filedocumented as of this encounter Visit Diagnoses Not on filedocumented in this encounter"
--- OUTSIDE RECORDS SUMMARY | ~2020-06-26 | XMS | Encounter Summary ---
Demographics + + + | Address | [address] | | | [place] [address] | + + + | Home Phone | | + + + | Preferred Language | Unknown | + + + | Marital Status | | + + + | Taoist Affiliation | Unknown | + + + | Race | White | + + + | Ethnic Group | Not or | + + + Author + + + | Author | [facility] | | [...] [place] | | | | | [address] | | + + + + + Care Team Providers + +------+ + | Care Manager Administration Name | Role | Phone | + +------+ + | Almas Licea MD | PCP | | + +------+ + Encounter Details +--------+ + + + + | Date | Type | Department | Care Team | Description | +--------+ + + + + | 12/19/ | Hospital | [facility] | Almas Rivera | Facet syndrome, | | 2015 | Encounter | MED CTR XRAY [address] | MD Earnest [address] | lumbar | | | | [place] | [address] [place] | | | | | [place] [address] | [place] [address] | | | | | [phone] | [phone] | | | | | | | [...] +--------+ + + + | XR HIP RIGHT 2 + VW | Routin | 12/19/2014 | Facet syndrome, | Results for this | | | e | 4:59 PM | lumbar | procedure are in the | | | | PDT | | results section. | + +--------+ + + + | XR LUMBAR SPINE | Routin | 12/19/2014 | Facet syndrome, | Results for this | | COMPLETE INCLUDING | e | 4:59 PM | lumbar | procedure are in the | | BENDING 6 + VW | | PDT | | results section. | + +--------+ + + + documented in this encounter Results XR Hip Right 2 + Vw (12/19/2014 4:59 PM PDT) + + | Specimen | + + | | + + + + + | Narrative | Performed At | + + + | XR HIP RIGHT 2 + VW 12/19/2014 4:59 PM HISTORY: right greater | [facility] | | trochanter pain after falling onto concrete steps and hitting gt.. | | | COMPARISON: None. FINDINGS: There are no acute osseous | | | findings. Mild degenerative changes are present with osteophytosis | | | and subchondral sclerosis. Bone mineralization is normal. Visualized | | | pelvic osseous structures show no acute findings. There is mild | | | atherosclerosis. Clips are in the scrotum. IMPRESSION - No acute | | | findings. Mild degenerative changes. Dictated and Signed by: | | | Judd Ansari MD Electronically signed: 12/19/2014 5:02 PM | | + + + + + | Procedure Note | + + | Emre, Rad Results In - 12/19/2014 5:05 PM PDT XR HIP RIGHT 2 + VW 12/19/2014 4:59 PM | | | | HISTORY: right greater trochanter pain after falling onto concrete steps and | | hitting gt.. | | | | COMPARISON: None. | | | | FINDINGS: | | There are no acute osseous findings. Mild degenerative changes are present with | | osteophytosis and subchondral sclerosis. Bone mineralization is normal. | | Visualized pelvic osseous structures show no acute findings. There is mild | | atherosclerosis. Clips are in the scrotum. | | | | IMPRESSION - | | No acute findings. | | | | Mild degenerative changes. | | | | Dictated and Signed by: Judd Ansari MD | | Electronically signed: 12/19/2014 5:02 PM | + + + +---------+ + + | Performing | Address | City/State/Zipcode | Phone Number | | Organization | | | | + +---------+ + + | [facility] | | | | + +---------+ + + XR Lumbar Spine Complete With Bending 6+ (12/19/2014 4:59 PM PDT) + + | Specimen | + + | | + + + + + | Narrative | Performed At | + + + | XR LUMBAR SPINE COMPLETE INCLUDING BENDING 6 + VW 12/19/2014 4:59 PM | [facility] | | HISTORY: right L4-S1 paraspinal severe pain, possible facet | [facility] | | syndrome. COMPARISON: None. FINDINGS: There is diffuse | MEDICAL CENTER | | osteopenia. Mild left curvature and spondylosis of the lumbar spine | - IMAGING | | are present. Minimal retrolisthesis is observed of L3 over L4 with no | | | evidence for instability during flexion and extension. Vertebral body | | | height are preserved with no evidence for compression fractures. | | | Moderate disc narrowing is at L2-3 with vacuum phenomenon. Mild disc | | | narrowing is at L3-4. There is mild disc narrowing at L4-5 with | | | vacuum phenomenon. Multilevel facet sclerosis and hypertrophy are | | | seen. Visualized ribs and pelvic osseous structures show no acute | | | findings. There is moderate to severe atherosclerosis. Clips are in | | | the right abdomen and bilateral pelvis. IMPRESSION - Multilevel | | | degenerative changes with no evidence for instability. Dictated | | | and Signed by: Judd Ansari MD Electronically signed: 12/19/2014 | | | 5:07 PM | | + + + + + | Procedure Note | + + | Emre, Rad Results In - 12/19/2014 5:10 PM PDT XR LUMBAR SPINE COMPLETE INCLUDING | | BENDING 6 + VW 12/19/2014 4:59 PMHISTORY: right L4-S1 paraspinal severe pain, possible | | facet syndrome.COMPARISON: None.FINDINGS:There is diffuse osteopenia. Mild left | | curvature and spondylosis of the lumbarspine are present. Minimal retrolisthesis is | | observed of L3 over L4 with noevidence for instability during flexion and extension. | | Vertebral body height arepreserved with no evidence for compression fractures. Moderate | | disc narrowing isat L2-3 with vacuum phenomenon. Mild disc narrowing is at L3-4. There | | is milddisc narrowing at L4-5 with vacuum phenomenon. Multilevel facet sclerosis | | andhypertrophy are seen. Visualized ribs and pelvic osseous structures show noacute | | findings. There is moderate to severe atherosclerosis. Clips are in theright abdomen and | | bilateral pelvis.IMPRESSION -Multilevel degenerative changes with no evidence for | | instability.Dictated and Signed by: Judd Ansari MD Electronically signed: 12/19/2014 | | 5:07 PM | |hypertrophy are seen. Visualized ribs and pelvic osseous structures show no | |acute findings. There is moderate to severe atherosclerosis. Clips are in the | |right abdomen and bilateral pelvis. | | | |IMPRESSION - | |Multilevel degenerative changes with no evidence for instability. | | | |Dictated and Signed by: Judd Ansari MD | | Electronically signed: 12/19/2014 5:07 PM | + + + + + + + | Performing | Address | City/State/[facility] | Phone Number | | Organization | | | | + + + + + | [facility] | [address] | [place] | [phone] | | [facility] | | [address] | | | - IMAGING | | | | + + + + + documented in this encounter Visit Diagnoses + + | Diagnosis | + + | Facet syndrome, lumbar Other symptoms referable to back | + + documented in this encounter"
--- OUTSIDE RECORDS SUMMARY | ~2020-06-26 | XMS | Encounter Summary ---
Demographics + + + | Address | [address] | | | [place] [address] | + + + | Home Phone [...] | Author | [facility] | | | and [...] [place] | | | | | [address] | | + + + + + Care Team Providers + +------+ + | Care Wired Sweatband Cutter Name | Role | Phone | + +------+ + | Zainab Franco MD | PCP | | + +------+ + Encounter Details +--------+ + + + + | Date | Type | Department | Care Team | Description | +--------+ + + + + | 12/14/ | Orders Only | [facility] [place] | Gerardo Leach | Right ankle pain, | | 2018 | | ORTHOPEDIC SURGERY | MD Gumaro [address] | unspecified | | | | [address] | [place] | chronicity (Primary | | | | [place] | [address] | Dx) | | | | [address] | | | | | | [phone] | | | +--------+ + + + [...] filedocumented as of this encounter Results XR Ankle Right 3 [...] unspecified chronicity - Primary | + + documented in this encounter"
--- OUTSIDE RECORDS SUMMARY | ~2020-06-26 | XMS | Encounter Summary ---
Demographics + + + | Address | [address] | | | [place] [address] | + + + | Home Phone | | + + + | Preferred Language | Unknown | + + + | Marital Status | | + + + | Uatsdin Affiliation | Unknown | + + + | Race | White | + + + | Ethnic Group | Not or | + + + Author + + + | Author | [facility] | | | and [place] | + + + | Organization | [facility] | | | [...] [place] | | | | | [address] | | + + + + + Care Team Providers + +------+ + | Care Harnessmaker Name | Role | Phone | + +------+ + | Harris Sauceda MD | PCP | | + +------+ + Reason for Visit + +--------+ + | Reason | Onset | Comments | | | Date | | + +--------+ + | Dressing Change | 05/24/ | | | | 2018 | | + +--------+ + Encounter Details +--------+ + + + + | Date | Type | Department | Care Team | Description | +--------+ + + + + | 05/24/ | Telephone | [facility] | Sebastian Bill | Dressing Jannet | | 2019 | | ORTHOPEDIC SURGERY | [address] | | | | | [address] | [address] [facility] | | | | | [place] | [place] [address] | | | | | [address] | [phone] | | | | | [phone] | | | +--------+ + + + [...] encounter Miscellaneous Notes Telephone Encounter - Hallie Doyle RN - 05/24/2019 1:24 PM PDTSpoke with patient's about concerns regarding dressing change, advised patient come to dressing change appointme nt as scheduled on 05/25/19. expressed understanding. documented in this encounter Plan of Treatment Not on filedocumented as of this encounter Visit Diagnoses Not on filedocumented in this encounter"
--- OUTSIDE RECORDS SUMMARY | ~2020-06-26 | XMS | Encounter Summary ---
Demographics + + + | Address | [address] | | | [place] [address] | + + + | Home Phone | | + + + | Preferred Language | Unknown | + + + | Marital Status | | + + + | Yazdanism Affiliation | Unknown | + + + | Race | White | + + + | Ethnic Group | Not or | + + + Author + + + | Author | [facility] | | | and [place] | [...] [place] | | | | | [address] | | + + + + + Care Team Providers + +------+ + | Care Network Contract Manager Name | Role | Phone | [...] Radiology | Diagnoses | [place], | [address] | | | | | S/P lumbar | Matt | [address] | | | | | fusion | RADHA Ramirez | [place], | | | | | Lumbar | [address] | [place] [address] | | | | | radiculopath | AVE | Phone: | | | | | y Lumbar | [place], [place] | [phone] | | | | | facet | [phone] | Fax: | | | | | arthropathy | Phone: | [phone] | | | | | Procedures | [phone] | | | | | | CT Lumbar | Fax: | | | | | | Spine wo | [phone] | | | | | | Contrast | | | +--------+--------+ + + + + Reason for Visit + + + | Reason | Comments | + + + | Follow-up | Discuss symptoms | + + + Encounter Details +--------+---------+ + + + | Date | Type | Department | Care Team | Description | +--------+---------+ + + + | 05/05/ | Office | [facility] | Jaime Matt | S/P lumbar fusion | | 2017 | Visit | NEUROSURGERY [address] | RADHA [address] | (Primary Dx); Lumbar | | | | [address], [place] | radiculopathy; | | | | [place] | [address] | Lumbar facet | | | | [address] | | arthropathy; Pain of | | | | [phone] | | left hip joint | +--------+---------+ + + + Social History [...] + + + | Blood Pressure | 152/91 | 05/05/2017 8:34 AM | | | | | PDT | | + + + + + | Pulse | 73 | 05/05/2017 8:34 AM | | | | | PDT | | + + + + + | Temperature | - | - | | + + + + + | Respiratory Rate | 16 | 05/05/2017 8:34 AM | | | | | PDT | | + + + + + | Oxygen Saturation | - | - | | + + + + + | Inhaled Oxygen | - | - | | | Concentration | | | | + + + + + | Weight | 64.9 kg (143 lb) | 05/05/2017 8:34 AM | | | | | PDT | | + + + + + | Height | 167.6 cm (5' 6") | 05/05/2017 8:34 AM | | | | | PDT | | + + + + + | Body Mass Index | 23.08 | 05/05/2017 8:34 AM | | | | | PDT [...] Instructions Patient Instructions Matt Sandoval PA-C - 05/05/2017 8:30 AM PDTToday we decided t o obtain a CT scan of your lumbar spine. In addition we will get hip x-rays of your left hi p. We will review these images and make further recommendations. We discussed that we will most likely have you follow up with physiatry. If we need further bone growth with your fu bryce we would discuss possibly a second bone growth stimulator. If there are issues we need to discuss regarding your CT scan we may ask you to return to the office to review these im ages documented in this encounter Progress Notes Matt Sandoval PA-C - 05/05/2017 8:30 AM PDTFormatting of this note might be differ ent from the original. Matt Sandoval PA-C [address] [place] [address], [address] [place], [place] [address] FAX: NEUROSURGERY FOLLOW-UP CHIEF COMPLAINT: Chief Complaint Patient presents with Follow-up Discuss symptoms HISTORY OF PRESENT ILLNESS: The patient is a 71 y.o. male that had a lumbar fusion for rad iculopathy around 9 months ago. He returns and overall is doing poorly. The patient compla ins of left-sided low back pain which radiates into his hip and now into his groin and anter ior thigh.. The patient has not been walking as much as directed. Patient had a previous stroke before surgery and had weakness and issues with his right leg. He is still taking pa in medications at this point. The patient has had no issues with his surgical site. He fee ls like his symptoms are worsening. Especially over the last few weeks. He denies any part icular injury. He uses a walker not only because of his weakness of his right leg post CVA but also because of his pain CURRENT MEDICATIONS: Current Outpatient Prescriptions Medication Sig [...] 5 mg by mouth Daily. losartan (COZAAR) 100 MG tablet Take 100 [...] tablet Take 5 mg by mouth Daily. Tus,Thur,Sat and Sun warfarin (COUMADIN) 7.5 mg tablet Take 7.5 mg by mouth. Mon,Citlali and Fri No current facility-administered medications for this visit. ALLERGIES: Allergies Allergen Reactions Hydrocodone Itching Severe itching Acetaminophen Itching Diphenhydramine Itching Intense itching without rash. REVIEW OF SYSTEMS GENERALLY: No fever, no night sweats, no anemia, no fatigue, no recent profound weight ch anges. EYES: No eye problems, no use of corrective lenses, no eye injury, no double vision, no bl indness. EARS, NOSE, AND THROAT: No changes in taste or smell, no hearing difficulty, + ringing in the ears, no ear drainage, no dizziness, + voice changes, + difficulty swallowing, + signifi cant snoring, no sleep apnea, no sinus problems, no major dental work. NEUROLOGICALLY: Please see the review of systems discussed above in the history of present illness. In addition, the patient has muscle aching, coordination difficulty, change in wa lk, back injury, pain in back. PSYCHIATRIC: + depression, no sleep disorders, + anxiety, no bipolar disorder, no psychoti c episodes. CARDIOVASCULAR: No heart attacks, no heart murmur, no heart fluttering, no chest pain, no ankle swelling. LUNG DISEASE: No shortness of breath, no cough, no tuberculosis, no bloody cough, no asth ma, no emphysema/COPD. GASTROINTESTINAL: No bowel disease, no [...] RHEUMATOLOGIC: No joint arthritis, no rheumatoid arthritis. SOCIAL HISTORY: The patient reports that he quit smoking about 15 years ago. His smoking use included Ciga rettes. He started smoking about 45 years ago. He has a 30.00 pack-year smoking history. He quit smokeless tobacco use about 30 years ago. He reports that he does not drink alcohol or use drugs. INTERIM PHYSICAL EXAMINATION: Blood pressure (!) 152/91, pulse 73, resp. rate 16, height 1.676 m (5' 6"), weight 64.9 kg (143 lb). Body mass index is 23.08 kg/m. GENERAL: Kevin Aleman . is in no acute distress with unlabored respirations. SPINE: The patient s incisions are healing well without drainage, significant erythema, o r discharge. EXTREMITIES: No lower extremity edema. NEUROLOGICAL EXAMINATION: MENTAL STATUS: The patient is awake, alert, and oriented. He follows simple and complex commands MOTOR EXAM: Motor strength is 4+/5 in lower extremities but pain limited exam. SENSORY EXAM: The sensory examination is unremarkable RADIOGRAPHIC REVIEW: Patient's previous MRI from November showed no significant nerve impingement ASSESSMENT: Encounter Diagnoses Name Primary? S/P lumbar fusion Yes Lumbar radiculopathy Lumbar facet arthropathy Pain of left hip joint Past Medical History: Diagnosis Date Adverse effect of anesthesia high blood pressure after stomach biopsy Back pain of thoracolumbar region 08/29/2012 Depression Facet arthritis of lumbar region (HCC) 02/01/2015 GERD (gastroesophageal reflux disease) High cholesterol Hypertension Poor circulation Stroke (HCC) right sided weakness Trochanteric bursitis of right hip 02/01/2015 PLAN: Overall, the patient is doing poorly. His back pain has worsened and he is having some leg pain at this time.. I would like patient have a CT scan of his lumbar spine as well as x-rays of his hip. We w ill review these and make further recommendations. We discussed possible physiatry consulta tion. We may need to have him return to the office to review the images. ELECTRONICALLY SIGNED BY: Matt Sandoval PA-C, 05/05/2017 9:10 documented in this encounter Plan of Treatment + +---------+--------+ + + | Name | Type | Priori | Associated Diagnoses | Order Schedule | | | | ty | | | + +---------+--------+ + + | CT Lumbar Spine wo | Imaging | Routin | S/P lumbar fusion | Expected: | | Contrast | | e | Lumbar | 05/05/2017, Expires: | | | | | radiculopathy | 05/05/2018 | | | | | Lumbar facet | | | | | | arthropathy | | + +---------+--------+ + + | XR Hip Left 2-3 | Imaging | Routin | Pain of left hip | Expected: | | Views | | e | joint | 05/05/2017, Expires: | | | | | | 05/05/2018 | + +---------+--------+ + + documented as of this encounter Procedures + +--------+ + + + | Procedure Name | Priori | Date/Time | Associated Diagnosis | Comments | | | ty | | | | + +--------+ + + + | IMAGING REPORT - | | 05/15/2017 | | Results for this | | EXTERNAL SCAN | | 12:00 AM | | procedure are in the | | | | PDT | | results section. | + +--------+ + + + | IMAGING REPORT - | | 05/15/2017 | | Results for this | | EXTERNAL SCAN | | 12:00 AM | | procedure are in the | | | | PDT | | results section. | + +--------+ + + + | IMAGING REPORT - | | 05/15/2017 | | Results for this | | EXTERNAL SCAN | | 12:00 AM | | procedure are in the | | | | PDT | | results section. | + +--------+ + + + documented in this encounter Results IMAGING REPORT - EXTERNAL SCAN (05/15/2017 12:00 AM PDT) + + + | Narrative | Performed At | + + + | Ordered by an | | | unspecified provider. | | + + + IMAGING REPORT - EXTERNAL SCAN (05/15/2017 12:00 AM PDT) + + + | Narrative | Performed At | + + + | Ordered by an | | | unspecified provider. | | + + + IMAGING REPORT - EXTERNAL SCAN (05/15/2017 12:00 AM PDT) + + + | Narrative | Performed At | + + + | Ordered by an | | | unspecified provider. | | + + + documented in this encounter Visit Diagnoses + + | Diagnosis | + + | S/P lumbar fusion - Primary Arthrodesis status | + + | Lumbar radiculopathy Thoracic or lumbosacral neuritis or radiculitis, unspecified | + + | Lumbar facet arthropathy Lumbosacral spondylosis without myelopathy | + + | Pain of left hip joint | + + documented in this encounter
--- OUTSIDE RECORDS SUMMARY | ~2020-06-26 | XMS | Encounter Summary ---
Demographics + + + | Address | [address] | | | [place] [address] | + + + | Home Phone | | + + + | Preferred Language | Unknown | + + + | Marital Status | | + + + | Sabianist Affiliation | Unknown | + + + | Race | White | + + + | Ethnic Group | Not or | + + + Author + + + | Author | [facility] | | | and [place] | + + + | Organization | [facility] | | [...] [place] | | | | | [address] | | + + + + + Care Team Providers + +------+ + | Care Roofer Apprentice Name | Role | Phone | + +------+ + | No, Unknownpcp | PCP | | + +------+ + Reason for Visit + + + | Reason | Comments | + + + | Follow-up | Back Pain | + + + Encounter Details +--------+---------+ + + + | Date | Type | Department | Care Team | Description | +--------+---------+ + + + | 08/31/ | Office | [facility] | Almas Rivera | Myofascial pain | | 2012 | Visit | REHABILITATION | MD Earnest [address] | dysfunction syndrome | | | | MEDICINE [address] | [address] | (Primary Dx); | | | | [address] | [place] [address] | Spasticity; | | | | [place] [address] | [phone] | Mechanical back pain | | | | [phone] | | | +--------+---------+ + + + [...] + + + | Blood Pressure | 142/97 | 08/31/2013 2:33 PM | | | | | PST | | + + + + + | Pulse | 84 | 08/31/2013 2:33 PM | | | | | PST | | + + + + + | Temperature | - | - | | + + + + + | Respiratory Rate | 18 | 08/31/2013 2:33 PM | | | | | PST | | + + + + + | Oxygen Saturation | - | - | | + + + + + | Inhaled Oxygen | - | - | | | Concentration | | | | + + + + + | Weight | 69.4 kg (153 lb) | 08/31/2013 2:33 PM | | | | | PST | | + + + + + | Height | 167.6 cm (5' 6") | 08/31/2013 2:33 PM | | | | | PST | | + + + + + | Body Mass Index | 24.69 | 08/31/2013 2:33 PM | | | | | PST | | + + + + + documented in this encounter Patient Instructions Patient Instructions Almas Rivera MD - 08/31/2013 3:16 PM PST1. Ride your bi ke starting 10 minutes every night. Increase 10 minutes a week up to about 40 minutes. 2. Get a gel cold pack from [employer] or [employer] and put in the refrigerator. Use for 20 m inutes after riding bike to decrease back pain and spasm. 3. Try the tizanidine at bed time if you're still having problems sleeping or muscle spasm s. Ok to also use during the day for muscle spasm. documented in this encounter Progress Notes Almas Rivera MD - 09/07/2013 4:17 PM PSTThe patient returns regarding his low back pain and weakness worsened through his previous stroke with left sided weakness. I sp ent over 15 minutes face to face the patient, over half in problem solving and specific inst ructions such as a stationary bike and its use along with Flexeril for his spasticity as wel l as muscle spasm problems. He has both because of his stroke as well as his back problem. He got the lift and uses it on the left with excellent benefit. He has not seen physical t herapy lately. He had increased back and muscle aching with right leg stiffness over the hansen mmer but no injury or other cause. He has not tried cold yet, but has tried heat. He saw a chiropractor for months ago he said he was out of alignment and got a treatment. Sleep history: He has occasional leg twitching in general problems falling asleep but back pain is not one of those reasons. He has back pain with going from sitting to standing, occasionally at rest, no radiation do wn the legs, no numbness, no new weakness. He just has a lot of stiffness in his back and t hinks lower extremity strengthening would help. He recently got a stationary bike and thus I reviewed how best to use it. He has joined a local spa but hasn't gone yet Physical exam: He is in no distress, he is mesomorphic Right arm and leg 4+ with left 5 minus. Mild increased tone on the right leg. He can feel light touch in the lower extremities On palpation he has pain in the left quadratus lumborum and muscle spasm. Impression: Left myofascial pain and spasm of the left quadratus lumborum: Flexeril and stretching with cold is recommended, he does not want PT at this time. Chronic low back pain with L3-5 facet problems: Probably related to his sit to stand stiffn ess and pain CVA right hemiparesis, mild but increased tone and spasticity contributing to his other pro blems. Decreased mood: Not discussed today but mood was okay today Plan: Start stationary bike 10 minutes a day and increase up to 30 or 40 minutes a day. This david l decrease his spasticity Flexeril one or 2 tablets at bedtime as he has used these in the past without urinary reten tion or other problems. This should help his sleep and myofascial pain. Cold Gel pack to the left quadratus lumborum for spasm Right ankle strengthening Followup as needed documented in this encounter Plan of Treatment Not on filedocumented as of this encounter Visit Diagnoses + + | Diagnosis | + + | Myofascial pain dysfunction syndrome - Primary Mylagia and myositis, unspecified | + + | Spasticity Abnormal involuntary movements | + + | Mechanical back pain Backache, unspecified | + + documented in this encounter
--- OUTSIDE RECORDS SUMMARY | ~2020-06-26 | XMS | Encounter Summary ---
Demographics + + + | Address | [address] | | | [place] [address] | + + + | Home Phone [...] + | Author | [facility] | | | and [...] [place] | | | | | [address] | | + + + + + Care Team Providers + +------+ + | Care Community Liaison Officer Name | Role | Phone | + +------+ + | Zainab Franco MD | PCP | | + +------+ + Reason for Visit Diagnostic/Screening (Routine) +--------+--------+ + + + + | Status | Reason | Specialty | Diagnoses / | Referred By | Referred To | | | | | Procedures | Contact | Contact | +--------+--------+ + + + + | Closed | | Radiology | Diagnoses | [place], | [address] | | | | | Left flank | Zainab Brito, | [address] | | | | | pain | [address] | [place], | | | | | Retroperiton | [address] | [place] [address] | | | | | eal fibrosis | [place], | Phone: | | | | | Procedures | [place] | [phone] | | | | | CT Abdomen | [address] | Fax: | | | | | Pelvis wo | Phone: | [phone] | | | | | Contrast CT | [phone] | | | | | | Abdomen wo | Fax: | | | | | | Contrast | [phone] | | +--------+--------+ + + + + Encounter Details +--------+ + + + + | Date | Type | Department | Care Team | Description | +--------+ + + + + | 10/14/ | Hospital | 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 | + +--------+ + + + documented in this encounter Results CT Abdomen Pelvis wo Contrast (10/14/2018 10:19 AM PST) + + | Specimen | + + | | + + + + + | Narrative | Performed At | + + + | TECHNIQUE: Noncontrast axial CT imaging was obtained through the | [facility] | | abdomen and pelvis with coronal and sagittal reformats. CLINICAL | | | INFORMATION: Left flank pain; Retroperitoneal fibrosis COMPARISON: | | | CT dated 09/01/2012. Lumbar spine MRI 11/19/2016. FINDINGS: | | | LUNGS: Centrilobular emphysematous changes. Minimal basilar | | | atelectasis/scarring. BONES: No acute osseous abnormality. No | | | osteoblastic or osteolytic lesion. Stable lumbar spinal fusion | | | changes at L2-L5 without evidence of hardware complication. Stable | | | appearance of the T12 and L1 compression deformities. Bony | | | demineralization. ABDOMEN/PELVIS: Abdominal wall: Small | | | fat-containing right inguinal hernia. Large fat-containing left | | | renal hernia containing a short segment of the sigmoid colon. No | | | evidence to suggest acute inflammation or bowel obstruction. | | | Liver: No mass lesion. Gallbladder: No calcified gallstones. Normal | | | caliber wall. Pancreas: No mass or ductal dilatation. Spleen: | | | Unremarkable. Adrenals: No nodule. Kidneys: No nephrolithiasis, | | | hydronephrosis, or evidence of a mass lesion. Ureters: No hydroureter | | | or ureteral. Urinary Bladder: Right posterior diverticulum. No | | | focal or diffuse wall thickening. Reproductive organs: Mild nodular | | | hypertrophy of the prostate. Unremarkable CT appearance of the | | | seminal vesicles. Bowel: Normal appendix. No evidence of bowel | | | obstruction. No focal or segmental bowel wall thickening. Large | | | hiatal hernia. Peritoneum/retroperitoneum: No ascites, free air, or | | | lymphadenopathy. Vessels: Normal caliber of the abdominal aorta. | | | Prominent arterial vascular calcifications. IMPRESSION - | | | No urolithiasis or hydroureteronephrosis. Hypertrophy of the | | | prostate with right posterior urinary bladder diverticulum which may | | | be seen with chronic partial outlet obstruction. Large hiatal | | | hernia. Small right and large left inguinal hernias with a loop of | | | sigmoid colon at the proximal left hernia. Dictated and Signed | | | by: Jorge Matute MD Electronically signed: 10/14/2018 1:34 PM | | + + + + + | Procedure Note | + + | Emre, Rad Results In - 10/14/2018 1:37 PM PST | | TECHNIQUE: Noncontrast axial CT imaging was obtained through the abdomen and | | pelvis with coronal and sagittal reformats. | | | | CLINICAL INFORMATION: Left flank pain; Retroperitoneal fibrosis | | | | COMPARISON: CT dated 09/01/2012. Lumbar spine MRI 11/19/2016. | | | | FINDINGS: | | | | LUNGS: Centrilobular emphysematous changes. Minimal basilar | | atelectasis/scarring. | | | | BONES: No acute osseous abnormality. No osteoblastic or osteolytic lesion. | | Stable lumbar spinal fusion changes at L2-L5 without evidence of hardware | | complication. Stable appearance of the T12 and L1 compression deformities. | | Bony demineralization. | | | | ABDOMEN/PELVIS: | | Abdominal wall: Small fat-containing right inguinal hernia. Large | | fat-containing left renal hernia containing a short segment of the sigmoid | | colon. No evidence to suggest acute inflammation or bowel obstruction. | | | | Liver: No mass lesion. | | Gallbladder: No calcified gallstones. Normal caliber wall. | | Pancreas: No mass or ductal dilatation. | | Spleen: Unremarkable. | | | | Adrenals: No nodule. | | Kidneys: No nephrolithiasis, hydronephrosis, or evidence of a mass lesion. | | Ureters: No hydroureter or ureteral. | | Urinary Bladder: Right posterior diverticulum. No focal or diffuse wall | | thickening. | | Reproductive organs: Mild nodular hypertrophy of the prostate. Unremarkable CT | | appearance of the seminal vesicles. | | | | Bowel: Normal appendix. No evidence of bowel obstruction. No focal or | | segmental bowel wall thickening. Large hiatal hernia. | | Peritoneum/retroperitoneum: No ascites, free air, or lymphadenopathy. | | Vessels: Normal caliber of the abdominal aorta. Prominent arterial vascular | | calcifications. | | | | | | IMPRESSION - | | No urolithiasis or hydroureteronephrosis. | | | | Hypertrophy of the prostate with right posterior urinary bladder diverticulum | | which may be seen with chronic partial outlet obstruction. | | | | Large hiatal hernia. | | | | Small right and large left inguinal hernias with a loop of sigmoid colon at the | | proximal left hernia. | | | | Dictated and Signed by: Jorge Matute MD | | Electronically signed: 10/14/2018 1:34 PM | + + + +---------+ + + | Performing | Address | City/State/Zipcode | Phone Number | | Organization | | | | + +---------+ + + | [facility] | | | | + +---------+ + + documented in this encounter Visit Diagnoses + + | Diagnosis | + + | Left flank pain Abdominal pain, unspecified site | + + | Retroperitoneal fibrosis Other ureteric obstruction | + + documented in this encounter"
--- OUTSIDE RECORDS SUMMARY | ~2020-06-26 | XMS | Encounter Summary ---
Demographics + + + | Address | [address] | | | [place] [address] | + + + | Home Phone | | + + + | Preferred Language | Unknown | + + + | Marital Status | | + + + | Worship Affiliation | Unknown | + + + | Race | White | + + + | Ethnic Group | Not or | + + + Author + + + | Author | [facility] | | | and [place] | + + + | Organization | [facility] | | [...] [place] | | | | | [address] | | + + + + + Care Team Providers + +------+ + | Care Talent Acquisition Coordinator Name | Role | Phone | + +------+ + | Harris Sauceda MD | PCP | | + +------+ + Reason for Visit +---------+ + | Reason | Comments | +---------+ + | Post Op | Right foot gastrocnemius release,and release of flexor tendons, | | | and release hallucis adductor, and pinning of right toes *having | | | foot swelling* DOS 05/19/19 | +---------+ + Encounter Details +--------+---------+ + + + | Date | Type | Department | Care Team | Description | +--------+---------+ + + + | 07/22/ | Office | [facility] | Gerardo Leach | S/P orthopedic | | 2019 | Visit | ORTHOPEDIC SURGERY | MD [address] | surgery, follow-up | | | | [address] | [place] | exam (Primary Dx) | | | | [place] | [id number] | | | | | [address] | | | | | | [phone] | | | +--------+---------+ + + + [...] encounter Progress Notes Gerardo Leach MD - 07/22/2019 9:30 AM Rodrigo returns for follow-up of his compl ex right lower extremity surgery which included release of the adductor hallucis longus, rel ease of the flexor tendons to all 4 lesser toes, Z-plasty lengthening of the extensor halluc is longus and brevis, and a Leticia gastrocnemius release. He is now out a little more delfino n 2 months from surgery. Examination: Exam reveals that all incisions have healed nicely. There is some residual ed carrie of the patient's right foot but he does note that he has had edema problems in the past and actually has compression stockings at home. His lesser toes are now straight and he is pleased with the results. Advice: Kevin is continuing to heal. He has lingering right pedal edema which is expected . We have encouraged him to use his compression stockings that he has used in the past. We will plan to see him back in clinical for a check in approximate 3 to 4 weeks.Electronicall y signed by Gerardo Leach MD at 10/28/2019 10:03 AM PSTdocumented in this encounter Plan of Treatment Not on filedocumented as of this encounter Visit Diagnoses + + | Diagnosis | + + | S/P orthopedic surgery, follow-up exam - Primary Follow-up examination, following | | other surgery | + + documented in this encounter"
--- OUTSIDE RECORDS SUMMARY | ~2020-06-26 | XMS | Encounter Summary ---
Demographics + + + | Address | [address] | | | [place] [address] | + + + | Home Phone [...] + + + | Author | [facility] | | | and [place] | + + + | Organization | [facility] | | | [...] [place] | | | | | [address] | | + + + + + Care Team Providers + +------+ + | Care Lucerne Farmer Name | Role | Phone | + +------+ + PCP | Unavailable | + +------+ + Encounter Details +--------+ + + + + | Date | Type | Department | Care Team | Description | +--------+ + + + + | 12/02/ | Hospital | [facility] GENERIC OP | Wing Errol Villa MD | Cervical Spondylosis | | 2006 | Encounter | [facility] [address] | [address] | | | | | [address] | [place], [place] | | | | | [place], [place] | [address] | | | | | [address] | [phone] | | | | | [phone] | | | +--------+ + + + [...] + | Diagnosis | + + | Cervical spondylosis Cervical spondylosis without myelopathy | + + documented in this encounter"
--- OUTSIDE RECORDS SUMMARY | ~2020-06-26 | XMS | Encounter Summary ---
Demographics + + + | Address | [address] | | | [place] [address] | + + + | Home Phone [...] + | Author | [facility] | | | and [place] | [...] [place] | | | | | [address] | | + + + + + Care Team Providers + +------+ + | Care Shaker Tender Name | Role | Phone | + +------+ + | Almas Licea MD | PCP | | + +------+ + Reason for Visit +--------+--------+ + | Reason | Onset | Comments | | | Date | | +--------+--------+ + | Other | 12/27/ | X-ray results | | | 2014 | | +--------+--------+ + Encounter Details +--------+ + + + + | Date | Type | Department | Care Team | Description | +--------+ + + + + | 12/27/ | Telephone | [facility] | Almas Rivera | Filippo (X-ray | | 2014 | | REHABILITATION | MD [address] | results) | | | | MEDICINE [address] | [address] | | | | | [address] | [place] [address] | | | | | [place] [address] | [phone] | | | | | [phone] | | | +--------+ + + + [...] Encounter - Kandis Cantu Cert MA - 12/27/2014 1:13 PM Elsa called to fabian valdez his results. Per Dr. Rivera: Please let Kevin Garcia know that the hip Xray was ok, no fracture and t hat I think the injection of the hip would be helpful. The lumbar Xray showed no instability, but still some facet arthritis, especially at L4-5. I called Kevin back and relayed Dr. Rivera's note to him. He verbally understood and I to ld him we would call him back after Dr. Estrada reviewed his x-rays. documented in this encounter Plan of Treatment Not on filedocumented as of this encounter Visit Diagnoses Not on filedocumented in this encounter"
--- OUTSIDE RECORDS SUMMARY | ~2020-06-26 | XMS | Encounter Summary ---
Demographics + + + | Address | [address] | | | [place] [address] | + + + | Home Phone | | + + + | Preferred Language | Unknown | + + + | Marital Status | | + + + | Islam Affiliation | Unknown | + + + | Race | White | + + + | Ethnic Group | Not or | + + + Author + + + | Author | [facility] | | | and [place] | + + + | Organization | [facility] | | | [...] [place] | | | | | [address] | | + + + + + Care Team Providers + +------+ + | Care Journeyman Meat Cutter Name | Role | Phone | + +------+ + | Almas Licea MD | PCP | | + +------+ + Reason for Visit + + + | Reason | Comments | + + + | Follow-up | Back Pain, injury from a fall | + + + Encounter Details +--------+---------+ + + + | Date | Type | Department | Care Team | Description | +--------+---------+ + + + | 12/19/ | Office | [facility] | Almas Rivera | Bursitis of right | | 2015 | Visit | REHABILITATION | MD [address] | hip (Primary Dx); | | | | MEDICINE [address] | [address] | Facet syndrome, | | | | [address] | [place] [address] | lumbar; Right hip | | | | [place] [address] | [phone] | pain | | | | [phone] | | | +--------+---------+ + + + [...] + + + | Blood Pressure | 139/70 | 12/19/2014 3:29 PM | | | | | PDT | | + + + + + | Pulse | 107 | 12/19/2014 3:29 PM | | | | | PDT | | + + + + + | Temperature | - | - | | + + + + + | Respiratory Rate | 16 | 12/19/2014 3:29 PM | | | | | PDT | | + + + + + | Oxygen Saturation | - | - | | + + + + + | Inhaled Oxygen | - | - | | | Concentration | | | | + + + + + | Weight | 69.4 kg (153 lb) | 12/19/2014 3:29 PM | | | | | PDT | | + + + + + | Height | 167.6 cm (5' 6") | 12/19/2014 3:29 PM | | | | | PDT | | + + + + + | Body Mass Index | 24.69 | 12/19/2014 3:29 PM | | | | | PDT | | + + + + + documented in this encounter Patient Instructions Patient Instructions Almas Rivera MD - 12/19/2014 4:12 PM PDT1. Get the hip Xray and back Xray today if possible 2. I'll set you up for the hip Xray with Dr. Estrada. 3. If the back Xray shows a lot of facet problems, I'll set you up with Dr. Estrada for the facet injections. If that happens, you could get the hip and facet injections probably the same day and save driving up here. 4. I'll see you in one month, but reschedule if no injections yet. documented in this encounter Progress Notes Almas Rivera MD - 12/19/2014 4:27 PM PDTI spent over 25 minutes, face to face with the patient, over half an education, plan of care, and reviewing with the patient his old CAT scan and MRI plus Dr. Estrada's notes from 2011. He reports two new problems. He had a fall about 2 months ago and struck his right hip and points to the right greater trochanter. He has severe pain 24/7 now. He has tried cold wi th a little help but not done regularly. While having physical therapy he is not getting an y specific treatment for this such as ultrasound. They're working mainly on his gait and jimenez ve fitted him with a right AFO and a Osce[place] crutch. He is getting physical therapy twice a week for 2 months. He works with Mr. Griggs at [facility]. They are also wo rking on his back strengthening Low back pain presently 8 on a scale of 10, 24/7. No radicular type pain, no numbness or t ingling or weakness related to that. 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 He reports the worst pain is first thing in the morning and his back will tend to give out at times when he is standing making him at risk for falls. Physical exam Tender in the right greater trochanter area, somewhat worse with flexion and extension of t he hip. Right ankle dorsiflexion 3 minus, plantarflexion 3+ with a dorsiflexion assist right AFO in place. Right knee and hip 4+, left leg 5. On palpation while much of the pain in the right quadratus lumborum area, with specific almaz ting around the right L4-S1 facet area he reports increased pain in that area. Back flexion 70, extension 15 increased pain with flexion and extension. Right bending 15, left bending 15 also with increased back pain on the right side. Impression Right greater trochanter bursitis from trauma about 2 months ago: Set up for injection Right flank pain that today appeared more specific for an L4-S1 facet problem. Dr. Emily chavez's notes from 2011 indicated some possible lumbar instability and mild to moderate facet arthritis, so f/u Xray done today. CVA right hemiparesis: Improving in gait with AFO and Osceola crutch, plus Botox injection s. However, without improvement of his right paraspinal back pain. Plan: Right hip x-ray with special attention to right greater trochanter. Lumbosacral x-ray flexion and extension and other views to check stability and facet arthri tis Set up for greater trochanter bursa injection with Dr. Estrada Follow-up one month Consideration of diagnostic facet injections if significant results of lumbar x-ray because of progression of his back pain and more specific pain in the facet area today.Electronical ly signed by Almas Rivera MD at 12/19/2014 4:38 PM PDTdocumented in this encoun ter Plan of Treatment Not on filedocumented as of this encounter Results XR Lumbar Spine Complete [...] | + + + + + | [address] | [address] | [place], [place] | [phone] | | [facility] | | [address] | | | - IMAGING | | | | + + + + + documented in this encounter Visit Diagnoses + + | Diagnosis | + + | Bursitis of right hip - Primary Enthesopathy of hip region | + + | Facet syndrome, lumbar Other symptoms referable to back | + + | Right hip pain Pain in joint, pelvic region and thigh | + + documented in this encounter
--- OUTSIDE RECORDS SUMMARY | ~2020-06-26 | XMS | Encounter Summary ---
Demographics + + + | Address | [address] | | | [place] [address] | + + + | Home Phone | | + + + | Preferred Language | Unknown | + + + | Marital Status | | + + + | Methodist Affiliation | Unknown | + + + | Race | White | + + + | Ethnic Group | Not or | + + + Author + + + | Author | [facility] | | | and [place] | + + + | Organization | [facility] | [...] [place] | | | | | [address] | | + + + + + Care Team Providers + +------+ + | Care Environmental Scientist Name | Role | Phone | + +------+ + | Harris Sauceda MD | PCP | | + +------+ + Encounter Details +--------+ + + + + | Date | Type | Department | Care Team | Description | +--------+ + + + + | 05/19/ | [facility] | [facility] | Abi De Dios, PT | | | 2019 | Encounter | MED CTR ACUTE | | | | | | PHYSICAL THERAPY | | | | | | [address] | | | | | | [place] [address] | | | | | | [phone] | | | +--------+ + + + [...] | 30 | 0 | 05/19/20 | 10/22/201 | | tablet | mouth Daily. | [...]
--- OUTSIDE RECORDS SUMMARY | ~2020-06-26 | XMS | Encounter Summary ---
Demographics + + + | Address | [address] | | | [place] [address] | + + + | Home Phone | | + + + | Preferred Language | Unknown | + + + | Marital Status | | + + + | Zoroastrianism Affiliation | Unknown | + + + | Race | White | + + + | Ethnic Group | Not or | + + + Author + + + | Author | [facility] | | [...] [place] | | | | | [address] | | + + + + + Care Team Providers + +------+ + | Care Press Tender Short Goods Name | Role | Phone | + +------+ + | Harris Sauceda MD | PCP | | + +------+ + Reason for Visit + +--------+ + | Reason | Onset | Comments | | | Date | | + +--------+ + | Appointment | 06/01/ | | | | 2019 | | + +--------+ + Encounter Details +--------+ + + + + | Date | Type | Department | Care Team | Description | +--------+ + + + + | 06/01/ | Telephone | [facility] | Sebastian Bill | Appointment | | 2019 | | ORTHOPEDIC SURGERY | [address] | | | | | [address] | [facility] | | | | | [place] [address] | [place] [address] | | | | | [address] | [phone] | | | | | [phone] | | | +--------+ + + + [...] this encounter Miscellaneous Notes Telephone Encounter - Uma Paul, Electromechanical Equipment Tester - 06/02/2019 3:40 PM PDTSpok e with patient and informed him that per Sebastian Bill he is to be non weight bearing for 6 w eeks and will follow up with Dr. Leach on 07/06/2019. elephone Encounter - Priya Catalan - 06/01/2019 3:59 PM PDTPatient called wanting to ask about the post op appointment pily ng out 4 weeks from today. Patient was under the understanding that he would be walking 4 we eks post surgery but the appointment is at the 6 week tariq. Please advise and call . documented in this encounter Plan of Treatment Not on filedocumented as of this encounter Visit Diagnoses Not on filedocumented in this encounter"
--- OUTSIDE RECORDS SUMMARY | ~2020-06-26 | XMS | Encounter Summary ---
Demographics + + + | Address | [address] | | | [place] [address] | + + + | Home Phone [...] Author | [facility] | [...] [place] | | | | | [address] | | + + + + + Care Team Providers + +------+ + | Care Fire Patrol Name | Role | Phone | + [...] | Specialty | Physical | Diagnoses | Hany, | [facility] | | | Services | Therapy | Foot | Gerardo Niak, | HOSPITAL | | | Required | | contractsally, | [address] | PHYSICAL | | | | | right | [address] | TH[address]AP[address] | | | | | | [place], | [place] | | | | | | [place] [address] | [place], [place] | | | | | | Phone: | [address] | | | | | | [phone] | Phone: | | | | | | Fax: | [phone] | | | | | | [phone] | Fax: | | | | | | | [phone] | +--------+ + + + + + Reason for Visit +---------+ + | Reason | Comments | +---------+ + | Post Op | Right foot gastrocnemius release,and release of flexor tendons, | | | and release hallucis adductor, and pinning of right toes dos | | | 05/19/19 | +---------+ + Encounter Details +--------+---------+ + + + | Date | Type | Department | Care Team | Description | +--------+---------+ + + + | 07/06/ | Office | [facility] | Gerardo Leach | Foot contracture, | | 2019 | Visit | ORTHOPEDIC SURGERY | MD Gumaro [address] | right (Primary Dx) | | | | [address] | [place] | | | | | [place] | [address] | | | | | [address] | | | | | | [phone] | | | +--------+---------+ + + + [...] encounter Progress Notes Gerardo Leach MD - 07/06/2019 11:30 AM Elsa returns follow-up of his right low er extremity surgery which included release of the abductor hallucis longus, release of flex or tendons to all 4 lesser toes, Z-plasty lengthening of the extensor hallucis longus and br nidhi, and a Leticia gastrocnemius release. He is now 7 weeks out from the procedure and kaleigh dy for pin removal. Examination: Exam reveals all incisions have healed well. There is no evidence of drainage or infection. His lesser toes are well aligned and the preoperative extension contracture of the great toe has now resolved. Advice: Today, we have removed all 4 K-wires from the lesser toes without difficulty. The pin sites were dressed with triple antibodic ointment. The patient will now be allowed to b egin use of a normal shoe and fully weight-bear to his tolerance. We have ordered multimoda lity physical therapy that he can obtain as an outpatient at [facility] in [facility]. We will see Kevin back for a clinical check in 1 month. documented in this encounter Plan of Treatment + + +--------+ + + | Name | Type | Priori | Associated Diagnoses | Order Schedule | | | | ty | | | + + +--------+ + + | * [facility] | Outpatient | Routin | Foot contracture, | Ordered: 07/06/2019 | | Physical Therapy - | Referral | e | right | | | AMB Referral | | | | | + + +--------+ + + documented as of this encounter Visit Diagnoses + + | Diagnosis | + + | Foot contracture, right - Primary | + + documented in this encounter"
--- OUTSIDE RECORDS SUMMARY | ~2020-06-26 | XMS | Encounter Summary ---
Demographics + + + | Address | [address] | | | [place] [address] | + + + | Home Phone [...] Author | [facility] | | | and [...] [place] | | | | | [address] | | + + + + + Care Team Providers + +------+ + | Care Napkin Machine Operator Name | Role | Phone | + +------+ + | Harris Sauceda MD | PCP | | + +------+ + Encounter Details +--------+ + + + + | Date | Type | Department | Care Team | Description | +--------+ + + + + | 02/05/ | Orders Only | [facility] | [facility] | | | 2010 | | MEDICAL CENTER | MD [address] | | | | | CLINICAL LABORATORY | [address] [place], | | | | | [address] | [place] [address] | | | | | [place], [place] | [phone] | | | | | [address] | | | | | | [phone] | | | +--------+ + + + [...] + +--------+ + + + | CULTURE, WOUND, | Routin | 02/05/2011 | | Results for this | | SMEAR, W/ANAEROBE | e | 2:30 PM | | procedure are in the | | | | PDT | | results section. | + +--------+ + + + documented in this encounter Results Culture, Wound, Smear, w/Anaerobe (02/05/2011 2:30 PM PDT) + + | Specimen | + + | | + + + + + | Narrative | Performed At | + + + | Specimen Description THUMB LEFT SPEC E SPECIAL | EXTERNAL LAB | | REQUESTS DO GRAM STAIN PLEASE GRAM STAIN | | | 2+ WBC'S SEEN | | | NO ORGANISMS SEEN CULTURE | | | 1+ NORMAL SKIN SARAH ISOLATED | | | NO SUSCEPTIBILITY TO | | | FOLLOW REPORT STATUS 02/07/2011 FINAL | | + + + + +---------+ + + | Performing | Address | City/State/Zipcode | Phone Number | | Organization | | | | + +---------+ + + | EXTERNAL LAB | | | | + +---------+ + + documented in this encounter Visit Diagnoses Not on filedocumented in this encounter"
--- OUTSIDE RECORDS SUMMARY | ~2020-06-26 | XMS | Encounter Summary ---
Demographics + + + | Address | [address] | | | [place] [address] | + + + | Home Phone [...] + + | Author | [facility] | | | and [place] | + + + | Organization | [facility] | | | [...] [place] | | | | | [address] | | + + + + + Care Team Providers + +------+ + | Care High School Music Instructor Name | Role | Phone | + [...] | | | | | | | [place] [facility] | | | | | | [...] + + + + | 07/03/ | [facility] | [facility] | William Garcia MD | | | 2016 | Encounter | MED CTR XRAY [address] | [address] | | | | | [address] | [place] [address] | | | | | [place] [address] | [phone] | | | | | [phone] | | | +--------+ + + + [...] + documented in this encounter Results [place] Leticia Stats No Charge (07/03/2016 2:03 PM PDT) [...]
--- OUTSIDE RECORDS SUMMARY | ~2020-06-26 | XMS | Encounter Summary ---
Demographics + + + | Address | [address] | | | [place] [address] | + + + | Home Phone [...] + + + | Author | [facility] | | | and [place] | + + + | Organization | [facility] | | | and [...] [place] | | | | | [address] | | + + + + + Care Team Providers + +------+ + | Care Food Preparation Supervisor Name | Role | Phone | + +------+ + | Harris Sauceda MD | PCP | | + +------+ + Reason for Visit + +--------+ + | Reason | Onset | Comments | | | Date | | + +--------+ + | Appointment Question | 05/21/ | | | | 2018 | | + +--------+ + Encounter Details +--------+ + + + + | Date | Type | Department | Care Team | Description | +--------+ + + + + | 05/21/ | Telephone | [facility] | Sebastian Bill | Appointment Question | | 2019 | | ORTHOPEDIC SURGERY | [address] | | | | | [address] | [facility] | | | | | [address] | [place] [address] | | | | | [address] | [phone] | | | | | [phone] | | | +--------+ + + + [...] Encounter - Hallie Doyle RN - 05/24/2019 8:25 AM PDTVoicemail 05/21/19 @ 4pm Patient left voicemail for me to call patient's , patient stated there was some confusi on about the instructions. DATE/TIME: 05/24/2019 8:15 Called patient's . She explained that there was confusion about the dressing change ins tructions. She stated that after they unwrapped the first layer of the dressing there was so me cotton material and they were unsure is she needed to remove that. I asked what supplies she was given for the dressing change. She stated she didn't receive any. I advised we jai edule the appointment tomorrow 05/25/19 as originally scheduled for the dressing change being that they didn't have any supplies for it. Patient's agreed. Appointment was reschedul ed. elephone Encounter - Hallie Doyle RN - 05/21/2019 10:36 AM PDTPatient called because he was confused. Patient stated he has an appointment on 06/01/19 and wanted to know if he needed it. I explained to h im that this appointment is the first initial post-operative appointment to evaluate how he is doing after surgery. Patient expressed understanding. I informed patient that he was also scheduled to come in on 05/25/19 for a dressing change with Curtis Bill, patient stated he di dn't need that appointment that he was given supplies and instructions to perform that dress ing change at home on his own. The appointment on 05/25/19 for dressing change was cancelled per patient request. Patient confirmed he will be here on 06/01/19 for his post-op appointmen tGomez documented in this e ncounter Plan of Treatment Not on filedocumented as of this encounter Visit Diagnoses Not on filedocumented in this encounter"
--- OUTSIDE RECORDS SUMMARY | ~2020-06-26 | XMS | Encounter Summary ---
Demographics + + + | Address | [address] | | | [place] [address] | + + + | Home Phone [...] | [facility] [...] [place] | | | | | [address] | | + + + + + Care Team Providers + +------+ + | Care Yield Improvement Engineer Name | Role | Phone | + +------+ + | Zainab Franco MD | PCP | | + +------+ + Encounter Details +--------+ + + + + | Date | Type | Department | Care Team | Description | +--------+ + + + + | 12/30/ | Orders Only | [facility] [place] | Gerardo Leach | Hemiparesis of right | | 2019 | | ORTHOPEDIC SURGERY | MD Gumaro [address] | dominant side as | | | | [address] [place] | [place] | late effect of | | | | [place], [place] | [address] | cerebrovascular | | | | [address] | | disease, unspecified | | | | [phone] | | cerebrovascular | | | | | | disease type (HCC) | | | | | | (Primary Dx) | +--------+ + + + + Social [...]
--- OUTSIDE RECORDS SUMMARY | ~2020-06-26 | XMS | Encounter Summary ---
Demographics + + + | Address | [address] | | | [place] [address] | + + + | Home Phone | | + + + | Preferred Language | Unknown | + + + | Marital Status | | + + + | Scientologist Affiliation | Unknown | + + + | Race | White | + + + | Ethnic Group | Not or | + + + Author + + + | Author | [facility] | + + + | Organization | [facility] | + + + | Address | Unknown | + + + | Phone | Unavailable | + + + Support + + + + + | Name | Relationship | Address | Phone | + + + + + | Delilah Aleman | ECON | [address] | | | | | [place] | | | | | [address] | | + + + + + Care Team Providers + +------+ + | Care Pin Ticket Machine Operator Name | Role | Phone | + +------+ + | Almas Licea MD | PCP | | + +------+ + Encounter Details +--------+------+ + + + | Date | Type | Department | Care Team | Description | +--------+------+ + + + | 11/28/ | Lab | Laboratory at [facility] | | Retroperitoneal | | 2008 | | [address] | | Fibrosis | | | | Loop Physician's | | | | | | [place], [address] [place] [address] | | | | | | [place], [place] | | | | | | [address] | | | | | | [phone] | | | +--------+------+ + + + [...] + + | DIFFERENTIAL | Routin | 11/28/2008 | | Results for this | | | e | 10:55 AM | | procedure are in the | | | | PDT | | results section. | + +--------+ + + + | CBC, WITH | Routin | 11/28/2008 | Retroperitoneal | Results for this | | DIFFERENTIAL | e | 10:55 AM | Fibrosis | procedure are in the | | | | PDT | | results section. | + +--------+ + + + | COMPLETE METABOLIC | Routin | 11/28/2008 | Retroperitoneal | Results for this | | SET | e | 10:55 AM | Fibrosis | procedure are in the | | (NA,K,CL,CO2,BUN,CRE | | PDT | | results section. | | AT,GLUC,CA,AST,ALT,B | | | | | | JUNIOR TOTAL,ALK | | | | | | PHOS,ALB,PROT TOTAL) | | | | | + +--------+ + + + | C-REACTIVE PROTEIN | Routin | 11/28/2008 | Retroperitoneal | Results for this | | | e | 10:55 AM | Fibrosis | procedure are in the | | | | PDT | | results section. | + +--------+ + + + | SEDIMENTATION RATE | Routin | 11/28/2008 | Retroperitoneal | Results for this | | | e | 10:55 AM | Fibrosis | procedure are in the | | | | PDT | | results section. | + +--------+ + + + documented in this encounter Results DIFFERENTIAL (11/28/2008 10:55 AM PDT) + +---------+ + + + | Component | Value | Ref Range | Performed | Pathologist | | | | | At | Signature | + +---------+ + + + | NEUTROPHIL | 88 (H) | 50 - 70 % | [...] +---------+ + + + | NEUTROPHIL | 6.3 | 1.8 - 7.7 K/cu | [facility] | | | # | | mm | DEPARTMENT | | | | | | OF | | | | | | PATHOLOGY | | + +---------+ + + + | LYMPHOCYTE | 0.6 (L) | 1.0 - 4.8 K/cu | [...] | + + + + + | [facility] | [address] | [place] [address] | | | PATHOLOGY | [address] | | | + + + + + | [facility] DEPARTMENT | [address] | [place] [address] | | | PATHOLOGY | [address] | | | + + + + + C-REACTIVE PROTEIN, SERUM (11/28/2008 10:55 AM PDT) [...] Change effective 10/11/08 | | | [facility] ([email or web address]) [facility] | | | [place] [address] [address] [facility] | | | [place] [address] | | + + + + + + + + | Performing | Address | City/State/Zipcode | Phone Number | | Organization | | | | + + + + + | [facility] | [address] | [place] [address] | | | LABORATORY | | | [...] | + + + + + | [facility] | [address] [facility] | [place] [address] | | | PATHOLOGY | [address] | | | + + + + + | [facility] | [address] [facility] | [place] [address] | | | PATHOLOGY | [address] [...] Performed At | + + + | [id number] Estimated GFR > 60 mL/min/1.73 sq m if non- | [facility] | | [place] [id number] Estimated GFR > 60 mL/min/1.73 sq m if | DEPARTMENT OF | | [place] GFR is estimated using the MDRD equation [...] | + + + + + | [facility] DEPARTMENT OF | [address] [facility] | [place] [address] | | | PATHOLOGY | [address] | | | + + + + + | [facility] DEPARTMENT OF | [address] [facility] | [place] [address] | | | PATHOLOGY | [address] [...] | + + + + + | [facility] | [address] [facility] | [place] [address] | | | PATHOLOGY | [address] | | | + + + + + | [facility] | [address] [facility] | [place] [address] | | | PATHOLOGY | [address] | | | + + + + + documented in this encounter Visit Diagnoses + + | Diagnosis | + + | Retroperitoneal fibrosis Other ureteric obstruction | + + documented in this encounter"
--- OUTSIDE RECORDS SUMMARY | ~2020-06-26 | XMS | Encounter Summary ---
Demographics + + + | Address | [address] | | | [place] [address] | + + + | Home Phone [...] | Author | [facility] [...] [place] | | | | | [address] | | + + + + + Care Team Providers + +------+ + | Care Manager Reliability Name | Role | Phone | + +------+ + PCP | Unavailable | + +------+ + Encounter Details +--------+ + + + + | Date | Type | Department | Care Team | Description | +--------+ + + + + | 07/15/ | Hospital | [facility] | Wing Errol Villa MD | CEREBR ART OCCL | | 2005 - | Encounter | [facility] | [address] | UNSPEC NO INFARCT | | | | INPATIENT | [place], [place] | | | 07/24/ | | REHABILITATION [address] | [address] | | | 2005 | | ANDREW TOSCANOVD | [phone] | | | | | [place], [place] | | | | | | [address] | | | | | | [phone] | | | +--------+ + + + [...] | Diagnosis | + + | 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
--- OUTSIDE RECORDS SUMMARY | ~2020-06-26 | XMS | Encounter Summary ---
Demographics + + + | Address | [address] | | | [place] [address] | + + + | Home Phone | | + + + | Preferred Language | Unknown | + + + | Marital Status | | + + + | Nondenominational Affiliation | Unknown | + + + | Race | White | + + + | Ethnic Group | Not or | + + + Author + + + | Author | [facility] | | | and [place] | + + + | Organization | [facility] | | [...] [place] | | | | | [address] | | + + + + + Care Team Providers + +------+ + | Care Watch Commander Name | Role | Phone | + +------+ + | Harris Sauceda MD | PCP | | + +------+ + Reason for Visit +---------+ + | Reason | Comments | +---------+ + | Post Op | Right foot gastrocnemius release and release of flexor tendons | | | and release hallucis adductor and pinning of right toes DOS | | | 05/19/2019 | +---------+ + Encounter Details +--------+---------+ + + + | Date | Type | Department | Care Team | Description | +--------+---------+ + + + | 05/26/ | Office | [facility] | Sebastian Bill | S/P orthopedic | | 2019 | Visit | ORTHOPEDIC SURGERY | [address] | surgery, follow-up | | | | [address] | [place] | exam (Primary Dx) | | | | [place] | [place] [address] | | | | | [address] | [phone] | | | | | [phone] | | | +--------+---------+ + + + Social History + + + +--------+ + | Tobacco Use | Types | Packs/Day | Years | Date | | | | | Used | | + + + +--------+ + | Former Smoker | Cigarettes | 1 | | 09/15/1971 - | | | | [...] | 64 kg (141 lb 1.5 | 05/26/2019 3:13 PM | | | | oz) | PDT | | + + + + + | Height | 167.6 cm (5' 6") | 05/26/2019 3:13 PM | | | | | PDT | | + + + + + | Body Mass Index | 22.77 | 05/26/2019 3:13 PM | | | | | PDT [...] encounter Progress Notes Sebastian Bill PA-C - 05/26/2019 2:45 PM PDTFormatting of this note might be differe nt from the original. Name:Kevin Aleman Sr. Todays Date: 05/28/2019 Age: 73 y.o. PCP: Harris Sauceda MD Chief Complaint Patient presents with Post Op Right foot gastrocnemius release and release of flexor tendons and release hallucis adduc tor and pinning of right toes DOS 05/19/2019 SUBJECTIVE: Patient returns today for postoperative check and dressing change. Patient had right foot surgery on 05/19/2019. The pain overall has been minimal and well-controlled. He is using hy drocodone and Tylenol for pain control as prescribed. Denies any reinjury. No specific con cerns today. Current level pain is rated at 2 OBJECTIVE: Move the bulky bandages and splint today. Inspection of the multiple incision sites at the toes and lateral ankle reveal they are healing appropriately well. The K wire fixations pi ns are intact at the second, third, fourth and fifth toes. No evidence of any convocation o r infection. There is diffuse swelling at the foot that be graded as moderate. Pitting taurus ma graded at +2. No purulence, open wound or infection is observed. Sutures are in place. Cleaned each incision and K wire fixation site. Dressed with triple antibiotic ointment an d Xeroform in each area. Wrapped the foot and leg and cast padding and secured well with Ac e wrap. Placed in walking boot. Imaging/Studies: No studies to review at this time. Vitals: 05/26/19 1513 Weight: 64 kg (141 lb 1.5 oz) Height: 1.676 m (5' 6") ASSESSMENT/PLAN: 1. Right foot gastrocnemius release, release of flexor tendons of toes and release of valg us abductor with pinning of the toes A. Patient is healing appropriate today. No sutures removed. No evidence of any convoca tion or infection today. Bandages changed and dressed with neutral ointment and Xeroform. Follow-up in about 1 week for reevaluation with anticipated suture removal. Continue with n onweightbearing. Keep the walking boot in place at all times even when sleeping. B. Patient is advised that if they have any questions, comments or concerns to contact our office. Electronically signed by: Sebastian Bill PA-C 05/28/2019 10:18 If patient received pain medication today the prescription monitoring program was reviewed and patient appears to be in compliance with his program. This note was dictated using the [employer] voice recognition system. Minor errors in grammar may have occurred. documented in t his encounter Plan of Treatment Not on filedocumented as of this encounter Visit Diagnoses + + | Diagnosis | + + | S/P orthopedic surgery, follow-up exam - Primary Follow-up examination, following | | other surgery | + + documented in this encounter
--- OUTSIDE RECORDS SUMMARY | ~2020-06-26 | XMS | Encounter Summary ---
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 | + +--------+ + + + | CBC WITH | Routin | 06/21/2016 | Lumbar | Results for this | | DIFFERENTIAL | e | 11:54 AM | radiculopathy | procedure are in the | | | | PDT | Myelopathy ([facility]) | results section. | | | | [...] | | | | region (HCC) | | | | | | Trochanteric [...] + | BASIC METABOLIC | Routin | 06/21/2016 | Lumbar | Results for this | | PANEL | e | 11:54 AM | radiculopathy | procedure are in the | | | | PDT | Myelopathy ([facility]) | results section. | | | | [...] | | | | | | region ([facility]) | | | | | | Trochanteric [...] | ECG 12 LEAD | Routin | 06/21/2016 | Lumbar | Results for this | | | e | 11:50 AM | radiculopathy | procedure are in the | | | | PDT | Myelopathy ([facility]) | results section. | | | | [...] | | | | | | region ([facility]) | | | | | | Trochanteric [...] in this encounter Results CBC with Differential (06/21/2016 11:54 AM PDT) + + + + + + | Component | Value | Ref Range | Performed | Pathologist | | | | | At | Signature | + + + + + + | White Blood | 7.0 | 4.0 - 11.0 K/uL | [facility] | | | Cells | | | [facility] | | | | | | MEDICAL | | | | | | CENTER - | | | | | | LABORATORY | | + + + + + + | Red Blood | 4.67 | 4.30 - 5.70 | [facility] | | | Cells | | M/uL | [facility] | | | | [...] | | | Eosinophils | | | [facility] | | [...] + | [facility] | [address] | [place] | [phone] | | [facility] | | [address] | | | - LABORATORY | | [...] 9 | 7 - 18 mg/dL | [facility] | | | | | | [facility] | | | | | | MEDICAL | | | | | | CENTER - | | | | | | LABORATORY | | + + + + + + | Creatinine | 0.96 | 0.60 - 1.30 | [facility] | [...] mL/min/1.73m2 | [facility] | | | [place] | RATE,ESTIMATED | | MEDICAL | | | | mL/min/1.86i9Lngp than | | CENTER - | | [...] [address] | [place] | [phone] | | [facility] | | [address] | | | - LABORATORY | | | | + + + + + Culture, MRSA (06/21/2016 11:54 AM PDT) + + + + + + | Component | Value | Ref Range | Performed | Pathologist | | | | | At | Signature | + + + + + + | Culture | Negative for MRSA by | | [facility] | | | | chromogenic agar method | | [facility] | | | [...] + | [facility] | [address] | [place] | [phone] | | [facility] | | [address] | | | - LABORATORY | | [...] | | | | EMMA SCHMID MD ([id number]) | | | | | | on [...]
--- OUTSIDE RECORDS SUMMARY | ~2020-06-26 | XMS | Encounter Summary ---
Demographics + + + | Address | [address] | | | [place] [address] | + + + | Home Phone [...] Author | [facility] | [...] [place] | | | | | [address] | | + + + + + Care Team Providers + +------+ + | Care Physical Ther Name | Role | Phone | + +------+ + PCP | Unavailable | + +------+ + Encounter Details +--------+ + + + + | Date | Type | Department | Care Team | Description | +--------+ + + + + | 07/10/ | Hospital | [facility] | Wicho Baird | | | 2004 - | Encounter | [facility] | MD Trista Clemons | | | | | CARE FLOOR [address] [place], [place] | | | 07/15/ | | [address] | [id number] | | | 2004 | | [place], [place] | | | | | | [address] | | | | | | [phone] | | | +--------+ + + + [...]
--- OUTSIDE RECORDS SUMMARY | ~2020-06-26 | XMS | Encounter Summary ---
Demographics + + + | Address | [address] | | | [place] [address] | + + + | Home Phone [...] Author | [facility] | [...] [place] | | | | | [address] | | + + + + + Care Team Providers + +------+ + | Care Collections Attorney Name | Role | Phone | + +------+ + | Almas Licea MD | PCP | | + +------+ + Reason for Visit +--------+--------+ + | Reason | Onset | Comments | | | Date | | +--------+--------+ + | Other | 07/26/ | Referral status | | | 2014 | | +--------+--------+ + Encounter Details +--------+ + + + + | Date | Type | Department | Care Team | Description | +--------+ + + + + | 07/26/ | Telephone | [facility] | Almas Rivera | Other (Referral | | 2014 | | REHABILITATION | MD Earnest [address] | status) | | | | MEDICINE [address] [place] | | | | | [address] [place] | [place] [address] | | | | | [place] [address] | [phone] | | | | | [phone] | | | +--------+ + + + [...] Encounter - Kandis Cantu Cert MA - 08/21/2015 8:[address] [facility] to see if Kevin had been scheduled, he is scheduled for his MRI tomorrow 08/22/15 at [facility]. e lephone Abdiaziz - Kandis Cantu Cert MA - 08/03/2015 4:21 PM PSTI left a message for Pauly ryan to let him know that his MRI has been approved and faxed to [facility]. I did call an d confirm that they received it and spoke to Nasir. I left Kevin the phone number to [facility] radiology. I asked for him to return my call after he schedules so that I can request report once completed. elephone Kandis Lobato Cert MA - 08/02/2015 4:32 PM PSTKevin return ed my call and he would like to proceed with the MRI, he would like to complete that at [facility]. Please order and I will call him once approved. elephone Kandis Lobato Cert MA - 08/01/2015 1:44 PM PSTLVM for Kevin to return my call. Dr. Garcia would like for him to get an MRI, Dr. Rivera wants to make sure he is okay with that before he orders it. Per Dr. Rivera: If you could let Kevin know that we need to get a lumbar MRI and he's ok with that, I'll o rder it. Solomon, mb elephone Enco shabana - Kandis Cantu Cert MA - 07/26/2015 12:58 PM PSTKevin called and lvm for me to re turn his call, he is wanting to know the status of his referral to Dr. Garcia. I called him paula chaudhari and lvm for him stating that the referral is in Dr. Garcia's hands and I did put it at the to p of his referral pile, so hoping it gets reviewed within the next couple of days.Electronic ally signed by Bonnie Holcomb MA at 07/26/2015 1:00 PM PSTdocumented in this encounte r Plan of Treatment Not on filedocumented as of this encounter Visit Diagnoses Not on filedocumented in this encounter"
--- OUTSIDE RECORDS SUMMARY | ~2020-06-26 | XMS | Encounter Summary ---
Demographics + + + | Address | [address] | | | [place] [address] | + + + | Home Phone [...] | Author | [facility] | | | and [place] [...] [place] | | | | | [address] | | + + + + + Care Team Providers + +------+ + | Care Journeyman Electrician Name | Role | Phone | + +------+ + | Harris Sauceda MD | PCP | | + +------+ + Encounter Details +--------+ + + + + | Date | Type | Department | Care Team | Description | +--------+ + + + + | 05/20/ | Documentati | [facility] | Sebastian Bill | | | 2019 | on | ORTHOPEDIC SURGERY | [address] | | | | | [address] | [address] | | | | | [place] | [place] [address] | | | | | [address] | [phone] | | | | | [phone] | | | +--------+ + + + [...] encounter Progress Notes Sebastian Bill PA-C - 05/20/2019 9:26 AM Elsa Aleman Sr. 05/20/19 9:26 Kevin Radha underwent surgery yesterday on 05/19/2019. Surgery to include release of abdu ctor hallucis longus, release of fourth flexor tendons of the lesser toes, Z-plasty of the e xtensor hallucis longus and brevis and gastro-anemic release. Anticipation was him to be di scharged with a walker. When physical therapy saw him yesterday for a walker training and n onweightbearing on the right lower extremity it was determined that he was not safe for ambu lation. Therefore it was deemed necessary that he would need a wheelchair for his activitie s of daily living as he would be unable to use a walker or cane for his nonweightbearing sta tus on the right lower extremity for 4 weeks. I was personally contacted by physical therap y yesterday and order for wheelchair has been placed. He will be nonweightbearing for the n ext 4 weeks and then we are hopeful that we can advance him to weightbearing at that time. Sebastian Bill PA-C 9:29 05/20/19 Orthopedic Surgery documented in this encounter Plan of Treatment Not on filedocumented as of this encounter Visit Diagnoses Not on filedocumented in this encounter"
--- OUTSIDE RECORDS SUMMARY | ~2020-06-26 | XMS | Encounter Summary ---
Demographics + + + | Address | [address] | | | [place] [address] | + + + | Home Phone | | + + + | Preferred Language | Unknown | + + + | Marital Status | | + + + | Moravian Affiliation | Unknown | + + + | Race | White | + + + | Ethnic Group | Not or | + + + Author + + + | Author | [facility] | | | and [place] | [...] [place] | | | | | [address] | | + + + + + Care Team Providers + +------+ + | Care Multi Line Claims Adjuster Name | Role | Phone | + +------+ + | Almas Licea MD | PCP | | + +------+ + Encounter Details +--------+ + + + + | Date | Type | Department | Care Team | Description | +--------+ + + + + | 09/22/ | Abstract | [facility] | Matt Sandoval | | | 2016 | | NEUROSURGERY [address] | [address] | | | | | [address] [place] | | | | | [place] | [address] | | | | | [address] | | | | | | [phone] | | | +--------+ + + + [...]
--- OUTSIDE RECORDS SUMMARY | ~2020-06-26 | XMS | Encounter Summary ---
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 | Phone [...] | | | | | Lumbosacral | [place], | [address] | | | | | spondylosis | Elbert Schmid MD | [place], | | | | | without | [address] | [place] | | | | | myelopathy | [place] | [address] | | | | | Right hip | [place], [place] | Phone: | | | | | pain | [phone] | [phone] | | | | | Procedures | Phone: | Fax: | | | | | [place] INJ | [phone] | [phone] | | | | | DX/THER AGNT | Fax: | | | | | | [place] | [phone] | | | | | | FACET JOINT, | | | | | | | LUMBAR/SAC, | | | | | | | 1ST LEVEL | | | | | | | MA INJ | | | | | | | DX/THER AGNT | | | | | | | [place] | | | | | | | FACET JOINT, | | | | | | | LUMBAR/SAC, | | | | | | | 2ND LEVEL | | | | | | | MA | | | | | | | TRIAMCINOLON | | | | | | | E ACET INJ | | | | | | | NOS, 10 MG | | | | | | | [place] | | | | | | | ARTHROCENTES | | | | | | | IS | | | | | | | ASPIR&/INJ | | | | | | | MAJOR | | | | | | | JT/BURSA W/O | | | | | | | US MA | | | | | | | FLUOROSCOPIC | | | | | | | GUIDANCE | | | | | | | NEEDLE | | | | | | | PLACEMENT | | | | | | | Right L3-L4, | | | | | | | L4-L5 Facet | | | | | | | Right | | | | | | | trochanteric | | | | | | | bursa | | | | | | | -Referral | | | | | | | from Dr | | | | | | | Nicole | | | +--------+--------+ + + + + Encounter Details +--------+ + + + + | Date | Type | Department | Care Team | Description | +--------+ + + + + | 06/07/ | Hospital | [facility] | Elbert Estrada | Facet arthritis of | | 2014 | Encounter | MED CTR XRAY [address] | [address], [address] | lumbar region | | | | [address] [place] [place] | [place], [place] | (Primary Dx); | | | | [place] [address] | [id number] | Spondylosis of | | | | [phone] | | lumbar region | | | | | [employer], [place] | without myelopathy | | | | | [place] | or radiculopathy; | | | | | | Trochanteric [...] +---------+ + + | Blood Pressure | 135/91 | 06/07/2015 2:47 PM | | | | | PDT | | + +---------+ + + | Pulse | 89 | 06/07/2015 2:47 PM | | | | | PDT [...] | [place] FACET INJECTION | Routin | 06/07/2015 | Spondylosis of | Results for this | | LUMBAR SACRAL | e | 2:34 PM | lumbar region | procedure are in the | | | | PDT | without myelopathy | results section. | | | | | or radiculopathy | | + +--------+ + + + documented in this encounter Results [place] Facet Injection Lumbar Sacral (06/07/2015 2:34 PM PDT) + + | Specimen | + + | | + + + + + | Narrative | Performed At | + + + | 06/07/2015 Bilateral Lumbar Facet Steroid Injections | [facility] | | Diagnosis: Lumbar Spondylosis ICD-9 Code 721.3 Kevin Gutierrez | [facility] | [facility] | [facility] | | fluoroscopically-guided right L3-L4 and [...] + + | Performing | Address | City/State[facility] | Phone Number | | Organization | | | | + + + + + | [facility] | [address] 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 | + + | Spondylosis of lumbar region without myelopathy or radiculopathy Lumbosacral | | spondylosis without myelopathy | + + | Trochanteric bursitis of right hip Enthesopathy of hip region | + + documented in this encounter Administered Medications + +--------+ +-------+------+------+ | Medication Order | MAR | Action | Dose | Rate | Site | | | Action | Date | | | | + +--------+ +-------+------+------+ | iohexol (OMNIPAQUE 300) 300 | Given | 06/07/20 | 4 mLs | | | | mg/mL injection 4 mL 4 mL, | | 15 2:40 | | | | | INTRATHECAL, ONCE, 9/23/15 at | | PM PDT | | | | | 1500, For 1 dose | | | | | | + +--------+ +-------+------+------+ +---+---+ | | | +---+---+ + +-------+ +------+---+ + | lidocaine 1% injection 1 mL 1 | Given | 06/07/20 | 1 mL | | Other | | mL, Intradermal, ONCE, Wed | | 15 2:37 | | | (Comment | | 06/07/15 at 1500, For 1 dose | | PM PDT | | | ) | + +-------+ +------+---+ + +---+---+ | | | +---+---+ + +-------+ +------+---+---+ | sodium bicarbonate (NEUT) 4% | Given | 06/07/20 | 1 mL | | | | injection 1 mL 1 mL, | | 15 2:37 | | | | | Intravenous, ONCE, 06/07/15 at | | PM PDT | | | | | 1500, For 1 dose, Use for | | | | | | | addition to other parenteral | | | | | | | solutions., | | | | | | + +-------+ +------+---+---+ +---+---+ | | | +---+---+ + +-------+ +-------+---+---+ | triamcinolone acetonide | Given | 06/07/20 | 80 mg | | | | (KENALOG-40) 40 mg/mL injection | | 15 2:43 | | | | | 80 mg 80 mg, Other, ONCE, Wed | | PM PDT | | | | | 06/07/15 at 1500, For 1 dose, | | | | | | | Shake well. Not for IV use., | | | | | | + +-------+ +-------+---+---+ +---+---+ | | | +---+---+ documented in this encounter"
--- OUTSIDE RECORDS SUMMARY | ~2020-06-26 | XMS | Clinical Summary ---
Demographics + + + | Address | [address] | | | [place] [address] | + + + | Home Phone [...] + + | Author | [facility] [...] [place] | | | | | [id number] | | + + + + + Care Team Providers + +------+ + | Care Virologist Name | Role | Phone | + +------+ + | Harris Sauceda MD | PCP | | + +------+ + Allergies + + + + + + | Active Allergy | Reactions | Severity | Noted | Comments | | | | | Date | | + + + + + + | Duloxetine | Unknown | | 01/29/20 | | | | | | 18 | | + + + + + + | Diphenhydramine | Itching | Low | 07/13/20 | One time | | | | | 16 | | + + + + + + Medications + + + +---------+------+------+-------+ | Medication | Sig | Dispensed | Refills | Star | End | Statu | | | | | | t | Date | s | | | | | | Date | | | + + + +---------+------+------+-------+ | diclofenac | Apply 1 g topically | | 0 | | | Activ | | (VOLTAREN) 1% GEL | 2 times daily. | | | | | e | + + + +---------+------+------+-------+ | chlorthalidone 25 | Take 25 mg by mouth | | 0 | | | Activ | | mg tablet | Daily. | | | | | e | + + + +---------+------+------+-------+ | citalopram | Take 40 mg by mouth | | 0 | | | Activ | | (CELEXA) 40 mg | Daily. | | | | | e | | tablet | | | | | | | + + + +---------+------+------+-------+ | finasteride | Take 5 mg by mouth | | 0 | | | Activ | | (PROSCAR) 5 mg | Daily. | | | | | e | | tablet | | | | | | | + + + +---------+------+------+-------+ | gabapentin | Take 300 mg by mouth | | 0 | | | Activ | | (NEURONTIN) 300 mg | 2 times daily. | | | | | e | | capsule | | | | | | | + + + +---------+------+------+-------+ | omeprazole | Take 20 mg by mouth | | 0 | | | Activ | | (PRILOSEC) 20 mg | Daily. | | | | | e | | capsule | | | | | | | + + + +---------+------+------+-------+ | tamsulosin | Take 0.4 mg by mouth | | 0 | | | Activ | | (FLOMAX) 0.4 mg CAPS | nightly. | | | | | e | + + + +---------+------+------+-------+ | traZODone | Take 75 mg by mouth | | 0 | | | Activ | | (DESYREL) 50 mg | nightly. | | | | | e | | tablet | | | | | | | + + + +---------+------+------+-------+ | acetaminophen | Take 650 mg by mouth | | 0 | | | Activ | | (TYLENOL) 325 mg | every 4 hours as | | | | | e | | tablet | needed for Pain. | | | | | | + + + +---------+------+------+-------+ | | Take 15 mLs by mouth | 240 mL | 0 | 09/0 | | Activ | | HYDROcodone-acetamin | 4 times daily as | | | 4/20 | | e | | ophen (HYCET) | needed for Pain. | | | 19 | | | | 7.5-325 mg/15 mL | | | | | | | | liquid | | | | | | | + + + +---------+------+------+-------+ | nystatin | | | 0 | 10/1 | | Activ | | (MYCOSTATIN) [id number] | | | | 5/20 | | e | | UNIT/GM powder | | | | 19 | | | + + + +---------+------+------+-------+ | potassium chloride | Take 20 mEq by mouth | | 0 | 10/0 | | Activ | | (KLOR-CON M20) 20 | Daily. | | | 4/20 | | e | | mEq ER tablet | | | | 19 | | | + + + +---------+------+------+-------+ | pramipexole | Take 0.5 mg by mouth | | 0 | /2 | | Activ | | (MIRAPEX) 0.5 MG | nightly. | | | 20 | | e | | tablet | | | | 19 | | | + + + +---------+------+------+-------+ | ibuprofen | Take by mouth. | | 0 | / | | Activ | | (ADVIL,MOTRIN) 600 | | | | 20 | | e | | MG tablet | | | | 19 | | | + + + +---------+------+------+-------+ | famotidine | | | 0 | 12/3 | | Activ | | (PEPCID) 20 mg | | | | /20 | | e | | tablet | | | | 19 | | | + + + +---------+------+------+-------+ | mycophenolate | Take 500 mg by mouth | | 0 | | | Activ | | (CELLCEPT) 500 MG | Daily. | | | | | e | | tablet | | | | | | | + + + +---------+------+------+-------+ | losartan (COZAAR) | Take 50 mg by mouth | | 0 | | | Activ | | 100 MG tablet | Daily. | | | | | e | + + + +---------+------+------+-------+ | atorvaSTATin | Take 40 mg by mouth | | 0 | | | Activ | | (LIPITOR) 40 mg | Daily. | | | | | e | | tablet | | | | | | | + + + +---------+------+------+-------+ | warfarin | Take 5 mg by mouth | | 0 | 04/1 | | Activ | | (COUMADIN) 5 mg | Five times a week. | | | 03/04 | | e | | tablet | 2.5 MG (1/2 TABLET) | | | 20 | | | | | ON Friday AND | | | | | | | | Friday. | | | | | | + + + +---------+------+------+-------+ | cyanocobalamin | Take 1,000 mcg by | | 0 | | | Activ | | (VITAMIN B-12) 1,000 | mouth Daily. | | | | | e | | mcg tablet | | | | | | | + + + +---------+------+------+-------+ | cholecalciferol | Take 125 mcg by | | 0 | | | Activ | | (VITAMIN D3) 125 mcg | mouth Twice a week. | | | | | e | | (5,000 units) | | | | | | | | capsule | | | | | | | + + + +---------+------+------+-------+ Active Problems + + + | Problem | Noted Date | + + + | History of cerebrovascular accident | 01/27/2019 | + + + | Achalasia of esophagus | 01/27/2019 | + + + | Hiatal hernia | 01/27/2019 | + + + | Hemiparesis of right dominant side as late effect of | 12/30/2018 | | cerebrovascular disease, unspecified cerebrovascular disease type | | + + + + + | Overview: PLAN: right gastrocnemius release, lesser toe | | flexor tendon release, and abductor hallucis release | + + + + + | Rectal urgency | 10/14/2018 | + + + | Hip pain | 05/05/2017 | + + + | Dysphagia | 11/04/2016 | + + + | Left inguinal hernia | 11/04/2016 | + + + | S/P lumbar fusion | 07/29/2016 | + + + | Hypotension due to medication | 07/16/2016 | + + + | Achalasia | 07/11/2016 | + + + | Hypokalemia | 07/08/2016 | + + + | Hypoxia | 07/07/2016 | + + + | Acute asthma flare | 07/07/2016 | + + + | Dysphagia as late effect of cerebrovascular disease | 07/07/2016 | + + + | Chronic anticoagulation | 07/03/2016 | + + + + + | Overview: For stroke prevention | + + +--------+ + | Stroke | 07/02/2016 | +--------+ + + + | Overview: right sided weakness | + + + + + | High cholesterol | 07/02/2016 | + + + | GERD (gastroesophageal reflux disease) | 07/02/2016 | + + + | Hypertension | 07/02/2016 | + + + | Depression | 07/02/2016 | + + + | Postural kyphosis of lumbar region | 04/29/2016 | + + + | DDD (degenerative disc disease), cervical | 10/12/2015 | + + + | Spondylolisthesis, lumbar region | 09/29/2015 | + + + | Lumbar radiculopathy | 09/29/2015 | + + + | DDD (degenerative disc disease), lumbar | 09/29/2015 | + + + | Lumbar facet arthropathy | 09/29/2015 | + + + | Neurogenic claudication | 09/29/2015 | + + + | Myelopathy | 09/29/2015 | + + + | Facet arthritis of lumbar region | 02/01/2015 | + + + | Trochanteric bursitis of right hip | 02/01/2015 | + + + | Back pain of thoracolumbar region - left flank region | 08/29/2012 | + + + | Spastic hemiplegia affecting right dominant side | 09/14/2005 | + + + + + | Overview: 2004 HISTORY OF MIDDLE CEREBRAL ARTERY ISCHEMIC | | STROKE. | + + + +---+ | FOOT DEFORMITY, ACQUIRED | | + +---+ | PAIN IN LIMB | | + +---+ | SPASTIC HEMIPLEGIA AFFECTING UNSPECIFIED SIDE | | + +---+ + + | Overview: ICD-10 Record update | + + + +---+ | Hemiplegia, late effect of cerebrovascular disease | | + +---+ + + | Overview: ICD-10 Record update | + + + +---+ | MUSCLE FASCICULATIONS | | + +---+ | CEREBRAL THROMBOSIS, WITH INFARCTION | | + +---+ | SPASM OF MUSCLE | | + +---+ | DARCIE II Inhibitors - Daily Use | | + +---+ | Thumb amputation status | | + +---+ + + | Overview: Bilateral | + + Encounters +--------+ + + + + | Date | Type | Specialty | Care Team | Description | +--------+ + + + + | 05/29/ | Telephone | Neurology | Mikaela Chavez, | Referral | | 2020 | | | MD | | +--------+ + + + + from Last 3 Months Immunizations + + + + | Name | Administration Dates | Next Due | + + + + | INFLUENZA 65 Y OR >, | 06/15/2018, 08/18/2017, 06/22/2015, | | | TRIVALENT HIGH-DOSE | 07/08/2014, 10/12/2013 | | + + + + | INFLUENZA PF | 2016 | | | QUAD(PED/ADOL/ADULT) | | | | ,PSKT or VIAL | | | + + + + | INFLUENZA PF | 06/02/2018 | | | TRIVALENT(PED/ADOL/A | | | | DULT), PSKT | | | + + + + | ZOSTER, 1 DOSE | 01/14/2011 | | | (ZOSTAVAX) | | | + + + + Family History + + +---------+ + | Medical History | Relation | Name | Comments | + + +---------+ + | No known problems | Child | | | + + +---------+ + | No known problems | Child | | | + + +---------+ + | Alcohol abuse | Father | | | + + +---------+ + | Prostate cancer | Father | | | + + +---------+ + | Stroke | Father | | Ischemic | + + +---------+ + | No known problems | Maternal | | | | | Grandfath | | | | | er | | | + + +---------+ + | No known problems | Maternal | | | | | Grandmoth | | | | | er | | | + + +---------+ + | Hypertension | Mother | | | + + +---------+ + | Stroke | Mother | | | + + +---------+ + | Arthritis | Other | | | + + +---------+ + | Diabetes | Other | | | + + +---------+ + | High cholesterol | Other | | | + + +---------+ + | No known problems | Paternal | | | | | Grandfath | | | | | er | | | + + +---------+ + | No known problems | Paternal | | | | | Grandmoth | | | | | er | | | + + +---------+ + | No known problems | Son | KEVIN | | | | | MOFFIT | | | | | JR | | + + +---------+ + + + + + + | Relation | Name | Status | Comments | + + + + + | Child | | Alive | | + + + + + | Child | | Alive | | + + + + + | Father | | | PROSTATE CANCER | | | | (Age | | | | | 75) | | + + + + + | Maternal Grandfather | | | | + + + + + | Maternal Grandmother | | | | + + + + + | Mother | | | | | | | (Age | | | | | 93) | | + + + + + | Other | | | | + + + + + | Paternal Grandfather | | | | + + + + + | Paternal Grandmother | | | | + + + + + | Son | KEVIN | Alive | | | | MOFFIT JR | | | + + + + + Social History + [...] + + Plan of Treatment + + + + + | Health Maintenance | Due Date | Last | Comments | | | | Done | | + + + + + | Hepatitis C | | | | | Screening | 5 | | | + + + + + | Med Mgmt: HBA1C | | | | | | 5 | | | + + + + + | Med Mgmt: HDL | | | | | | 5 | | | + + + + + | Med Mgmt: LDL | | | | | | 5 | | | + + + + + | Med Mgmt: Total | | | | | Cholesterol | 5 | | | + + + + + | Med Mgmt: | | | | | Triglycerides | 5 | | | + + + + + | Med Mgmt: Vit D | | | | | | 5 | | | + + + + + | Medication | | | | | Management | 5 | | | + + + + + | Vaccine: | | | | | Dtap/Tdap/Td (1 - | 4 | | | | Tdap) | | | | + + + + + | Vaccine: | | | | | Pneumococcal 65+ (1 | 0 | | | | of 1 - PPSV23) | | | | + + + + + | Vaccine: Zoster (2 | | 01/15/20 | | | of 3) | 1 | 11 | | + + + + + | Adult Annual | | | | | Wellness Visit | 5 | | | + + + + + | Med Mgmt: INR | | 05/10/20 | | | | 9 | 19, | | | | | 07/17/20 | | | | | 16, | | | | | 07/16/20 | | | | | 16, | | | | | Addition | | | | | al | | | | | history | | | | | exists | | + + + + + | Med Mgmt: HCT | | 05/10/20 | | | | 0 | 19, | | | | | 07/17/20 | | | | | 16, | | | | | 07/15/20 | | | | | 16, | | | | | Addition | | | | | al | | | | | history | | | | | exists | | + + + + + | Med Mgmt: HGB | | 05/10/20 | | | | 0 | 19, | | | | | 07/17/20 | | | | | 16, | | | | | 07/15/20 | | | | | 16, | | | | | Addition | | | | | al | | | | | history | | | | | exists | | + + + + + | Med Mgmt: PLT | | 05/10/20 | | | | 0 | 19, | | | | | 07/17/20 | | | | | 16, | | | | | 07/15/20 | | | | | 16, | | | | | Addition | | | | | al | | | | | history | | | | | exists | | + + + + + | Med Mgmt: WBC | | 05/10/20 | | | | 0 | 19, | | | | | 07/17/20 | | | | | 16, | | | | | 07/15/20 | | | | | 16, | | | | | Addition | | | | | al | | | | | history | | | | | exists | | + + + + + | Vaccine: Influenza | | 07/19/20 | | | (#1) | 0 | 19, | | | | | 07/19/20 | | | | | 19, | | | | | 06/15/20 | | | | | 18, | | | | | Addition | | | | | al | | | | | history | | | | | exists | | + + + + + | Med Mgmt: BUN | | 05/19/20 | | | | 0 | 19, | | | | | 07/17/20 | | | | | 16, | | | | | 07/15/20 | | | | | 16, | | | | | Addition | | | | | al | | | | | history | | | | | exists | | + + + + + | Med Mgmt: Cr | | 05/19/20 | | | | 0 | 19, | | | | | 07/17/20 | | | | | 16, | | | | | 07/15/20 | | | | | 16, | | | | | Addition | | | | | al | | | | | history | | | | | exists | | + + + + + | Med Mgmt: K | | 05/19/20 | | | | 0 | 19, | | | | | 07/17/20 | | | | | 16, | | | | | 07/15/20 | | | | | 16, | | | | | Addition | | | | | al | | | | | history | | | | | exists | | + + + + + | Med Mgmt: Na | | 05/19/20 | | | | 0 | 19, | | | | | 07/17/20 | | | | | 16, | | | | | 07/15/20 | | | | | 16, | | | | | Addition | | | | | al | | | | | history | | | | | exists | | + + + + + | Med Mgmt: eGFR | | 05/19/20 | | | | 0 | 19, | | | | | 07/17/20 | | | | | 16, | | | | | 07/15/20 | | | | | 16, | | | | | Addition | | | | | al | | | | | history | | | | | exists | | + + + + + | Colorectal Cancer | | 09/15/19 | | | Screening | 1 | 11, | | | (Colonoscopy) | | 09/15/19 | | | | | 09 | | + + + + + | AAA Screening | Completed | 10/14/19 | | | | | 19, | | | | | 09/01/20 | | | | | 12, | | | | | 06/28/20 | | | | | 11 | | + + + + + Implants + +--------+--------+ +--------+--------+--------+ | Implanted | Type | Area | Manufacture | Device | Shelf | Model | | | | | r | | Expira | / | | | | | | Identi | tion | Serial | | | | | | fier | Date | / Lot | + +--------+--------+ +--------+--------+--------+ | Bone Certify Chip 1.7-10 15cc - | Bone | Right: | [employer]TRONIC - | | 09/28/ | [id number] | | SnaImplanted: Qty: 1 on | | Spine | MEDT | | 2020 | | | 07/03/2016 by Wliliam Garcia, | | | | | | /[id number] | | at [facility] | | Lumbar | | | | [id number] | | [facility] | | | | | | / | + +--------+--------+ +--------+--------+--------+ | Bone Mtrx Osteocel Pro 5cc - | Bone | Right: | NUVASIVE - | | 10/24/ | [id number] | | [id number]: Qty: 1 | | Spine | NVSV | | 2020 | 5 | | on 07/03/2016 by William Garcia | | | | | | /[id number] | | MD Chuck at [facility] | | Lumbar | | | | [id number] / | | [facility] | | | | | | | + +--------+--------+ +--------+--------+--------+ | Raphael Ti Prebent Lordtc 90mm - | Generi | Right: | NUVASIVE - | | | [id number] | | [id number]: Qty: 1 on | c | Spine | NVSV | | | 0 / / | | 07/03/2016 by William Garcia, | | | | | | | | at [facility] | | Lumbar | | | | | | [facility] | | | | | | | + +--------+--------+ +--------+--------+--------+ | Mixer Yrn Kyphon W/Kyphx Hv-R | Generi | Right: | KYPHON - | | 09/30/ | [id number] / | | - [id number]: Qty: 1 | c | Spine | NOW PART | | 2018 | | | on 07/03/2016 by William Garcia | | | [employer]TR[employer] - | | | /[id number] | | MD Chuck at [facility] | | Lumbar | KYPH | | | 44 | | [facility] | | | | | | | + +--------+--------+ +--------+--------+--------+ | Imp Spn Intbdy Xlw | Generi | Right: | NUVASIVE - | | | [id number] | | [id number] - | c | Spine | NVSV | | | / / | | [id number]: Qty: 1 on | | | | | | | | 07/03/2016 by William Garcia, | | Lumbar | | | | | | at [facility] | | | | | | | | [facility] | | | | | | | + +--------+--------+ +--------+--------+--------+ | Cement Bone Kyph Hv-R - | Generi | Right: | KYPHON - | | 03/03/ | C01A / | | [id number]: Qty: 1 on | c | Spine | NOW PART | | 2018 | | | 07/03/2016 by William Garcia, | | | [employer]TR[employer] - | | | /[id number] | | at [facility] | | Lumbar | KYPH | | | 15 | | [facility] | | | | | | | + +--------+--------+ +--------+--------+--------+ | Cage Peek Xlct4 10d [id number] | Generi | Right: | NUVASIVE - | | | [id number] | | - [id number]: Qty: 1 | c | Spine | NVSV | | | 5 / / | | on 07/03/2016 by William Garcia | | | | | | | | MD Chuck at [facility] | | Lumbar | | | | | | [facility] | | | | | | | + +--------+--------+ +--------+--------+--------+ | Raphael Ti Prebent Lordtc 80mm - | Generi | Right: | NUVASIVE - | | | [id number] | | [id number]: Qty: 1 on | c | Spine | NVSV | | | 0 / / | | 07/03/2016 by William Garcia, | | | | | | | | at [facility] | | Lumbar | | | | | | [facility] | | | | | | | + +--------+--------+ +--------+--------+--------+ | K-Wire - [id number]: | Generi | Right: | NUVASIVE - | | | [id number] | | Qty: 4 on 05/19/2019 by | c | Toe | NVSV | | | 1 / / | | Gerardo Leach MD at | | | | | | | | [facility] | | | | | | | | [facility] | | | | | | | + +--------+--------+ +--------+--------+--------+ | Qamar Graf 10cc Dbm - | Graft | Right: | [employer] - | | 01/16/ | [id number] | | [id number]: Qty: 1 | | Spine | MEDT | | 2019 | | | on 07/03/2016 by William Garcia | | | | | | /[id number] | Gage Woods MD at [facility] | | Lumbar | | | | [phone] | | [facility] | | | | | | / | + +--------+--------+ +--------+--------+--------+ | Screw Polyax Precept 6.5x55 - | Screw | Right: | NUVASIVE - | | | [id number] | | [id number]: Qty: 4 | | Spine | NVSV | | | 5A / / | | on 07/03/2016 by William Garcia | | | | | | | | MD Chuck at [facility] | | Lumbar | | | | | | [facility] | | | | | | | + +--------+--------+ +--------+--------+--------+ | Screw Polyax Precept 7.5x55 - | Screw | Right: | NUVASIVE - | | | [id number] | | [id number]: Qty: 4 | | Spine | NVSV | | | 5A / / | | on 07/03/2016 by William Garcia | | | | | | | | MD Chuck at [facility] | | Lumbar | | | | | | [facility] | | | | | | | + +--------+--------+ +--------+--------+--------+ | Screw Set - | Screw | Right: | NUVASIVE - | | | [id number] | | [id number]: Qty: 8 on | | Spine | NVSV | | | 0 / / | | 07/03/2016 by William Garcia | | | | | | | | at [facility] | | Lumbar | | | | | | [facility] | | | | | | | + +--------+--------+ +--------+--------+--------+ | Imp Spn Intbdy Xlw | | Right: | NUVASIVE - | | | [id number] | | [id number] | | Spine | NVSV | | | 0 / / | | [id number]: Qty: 1 on | | | | | | | | 07/03/2016 by William Garcia, | | Lumbar | | | | | | MD at [facility] | | | | | | | | [facility] | | | | | | | + +--------+--------+ +--------+--------+--------+ | Intro T34a Kyph Ex Oi Regina And | | Right: | [employer]IC - | | 01/03/ | T34A / | | - SnaImplanted: Qty: 1 on | | Spine | MEDT | | 2018 | | | 07/03/2016 by William Garcia, | | | | | | /[id number] | | MD at [facility] | | Lumbar | | | | 088 | | [facility] | | | | | | | + +--------+--------+ +--------+--------+--------+ Results Not on filefrom Last 3 Months Insurance + +--------+ +--------+ +---------+--------+ | Payer | Benefi | Subscriber | Effect | Phone | Address | Type | | | t Plan | ID | song | | | | | | / | | Dates | | | | | | Group | | | | | | + +--------+ +--------+ +---------+--------+ | MEDICARE | MEDICA | [id number] | | [phone] | | Medica | | | RE | | 010-Pr | 5 | | re | | | PART A | | esent | | | | | | AND B | | | | | | + +--------+ +--------+ +---------+--------+ | MEDICARE | MEDICA | [id number] | | [phone] | | Medica | | | RE | | 010-Pr | 5 | | re | | | PART A | | esent | | | | | | AND B | | | | | | + +--------+ +--------+ +---------+--------+ | [employer] | MUTUAL | [id number] | 02/14/20 | [phone] | | Indemn | | | AND | | 20-Pre | 0 | | ity | | | [place] | | sent | | | | | | [employer] | | | | | | | | MDCR | | | | | | | | SUPPL | | | | | | + +--------+ +--------+ +---------+--------+ + +--------+ +--------+ + + | Guarantor Name | Accoun | Relation to | Date | Phone | Billing Address | | | t Type | Patient | of | | | | | | | | | | + +--------+ +--------+ + + | Kevin Aleman | Person | Self [birth year] | [address] | | Sr. | al/Fam | | 1945 | [phone] | [address] [place] | | | [place] | | | 5 (Home) | [phone] | + +--------+ +--------+ + + | Kevin Aleman | Person | Self | [birth year] | [address] | | Sr. 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 | | + + + + + | Power of | | | | | Stock Controller | | | | + + + + + | Advance | 07/03/2016 | | | | Directive | 11:39 AM | | | + + + + + + + + + + | Code Status | Date | Date | Comments | | | Activated | Inactivated | | + + + + + | Full Code | 05/19/2019 | 05/19/2019 | | | | 12:15 PM | 5:19 PM | | + + + + + + + + +---+ | | | | | + + + +---+ | Full Code | 07/16/2016 | 07/17/2016 | | | | 12:10 AM | 1:10 PM | | + + + +---+ + + + +---+ | | | | | + + + +---+ | Full Code | 07/06/2016 | 07/16/2016 | | | | 10:00 AM | 12:10 AM | | + + + +---+ + + + +---+ | | | | | + + + +---+ | Full Code | 07/03/2016 | 07/06/2016 | | | | 4:15 PM | 10:00 AM | | + + + +---+
[~2020-06-26 07:30] MED LIST changes: +K-TAB ER20 MEQ PO; +LOSARTAN POTAS100 MG PO; +NIACIN500 M1 PO; +VITAMIN B-121000 MCG PO; +VOLTAREN ARTHRI20 GM TOP
[2020-06-26] MEDS ORDERED: ALEVE220 MG PO (07:51)
[2020-06-26] MEDS ORDERED: VENTOLIN HFA18 GM (07:51)
--- NOTE | 2020-06-26 12:35 | NUR ---
PT ARRIVED TO FLOOR VIA STRETCHER AT THIS TIME. PT STATES THAT HE IS HAVING SOME BURNING PAIN AROUND THE CATHETER. PT ABLE TO SCOOT TO BED WELL, AFTER SCOOTING TO ROOM BED PT STATED THAT HE WAS FEELING SHORTNESS OF BREATH. PTS O2 SAT 92% ON 0.5L VIA OXYMASK. THIS RN TURNED UP PTS O2 TO 1L FOR COMFORT. THIS RN RECEIVED REPORT FROM CHANTE STRONG AT THIS TIME.
--- NOTE | 2020-06-26 12:50 | NUR ---
THIS RN IN ROOM WITH CHARGE NURSE SELIN. PT STATING THAT HE IS NOT WANTING TO HAVE BLOOD AT THIS TIME. SELIN RN EDUCATED PT THE BENFITS VS THE RISKS OF HAVING BLOOD, ALSO DISCUSSED WITH PT THE ADVERSE REACTIONS THAT HE MAY EXPERIENCE. PT BELIEVED THAT RECIEVING BLOOD WAS CONSIDERED "LIFE SUSTAINING" AND HE WANTS TO ONLY HAVE LIMITED INTERVENTIONS DONE. THIS RN DISCUSSED WITH PT THAT BLOOD ADMIN IS ACTUALLY CONSIDERED LIMITED INTERVENTION. AFTER EDUCATION FROM BOTH NURSES PT AGREEABLE TO RECIEVE BLOOD UNDER THE IMPRESSION IT WILL MAKE HIM FEEL BETTER. AFTER ASKING MULTIPLES TIMES THAT PT WAS SURE, SELIN STRONG WENT TO GET THE BLOOD FOR PT.
[2020-06-26] MEDS ORDERED: PRAMIPEXOLE DI0.5 MG PO (12:55)
--- NOTE | 2020-06-26 13:05 | NUR ---
DISCUSSED BLOOD ADMINISTRATION, THIS RN ASKED PATIENT IF HE IS AGREEABLE TO BLOOD ADMINISTRATION, PATIENT SAID "NO", "I DONT WANT IT". EDUCATION THEN PROVIDED WITH RISK VERSUS BENEFITS. DISCUSSED WHY WOULD ORDER BLOOD ADMINISTRATION. PATIENT THEN VERBALIZED "I WILL HAVE IT", "I WILL HAVE THE BLOOD" PATIENT ALSO REMINDED THAT IT IS HIS RIGHT TO REFUSE ANY TREATMENT THAT HE DOES NOT WANT. HE SAID "I AM AWARE OF THAT", "I WILL HAVE THE BLOOD" SONYA RN PRIMARY RN IN ROOM WITH THIS FILLING HAULER DURING THIS CONVERSATION.
--- NOTE | 2020-06-26 13:11 | NUR ---
06/26/20 1311 SamMellissa caban 1123 PT ARRIVED IN PACU SLEEPY. MARTINEZ WITH CBI RUNNING AND LITE PINK IN COLOR. 100ML NS WEIGHT HANGING OFF THE SIDE OF BED FOR TRACTION ON CATHETER PER DR ORDERS. 1130 T&C FOR 2 UNITS PRBC'S DONE. PT VERBALIZING REFUSAL OF BLOOD AT THIS TIME. 1145 C/O NAUSEA. ZOFRAN 4MG GIVEN IVP. 1146 C/O BURNING IN PENIS. FENTANYL 25MCG GIVEN IVP. 1200 DR AT BEDSIDE TALKING TO PT OUT GIVING HIM BLOOD WHEN IT'S READY. 1215 C/O FEELING COLD. WARM BLANKETS GIVEN. 1230 RESTING. REU. 1245 TO MED SURG ROOM 119. REPORT GIVEN TO LIGIA HASSAN.
--- NOTE | 2020-06-26 13:16 | NUR ---
BLOOD ADMIN STARTED THIS RN EDUCATED PT AGAIN ON SIGNS AND SYMPTOMS OF BLOOD. PT STATES UNDERSTANDING AT THIS TIME AND IS AGREEABLE TO BLOOD ADMIN.
--- NOTE | 2020-06-26 13:36 | NUR ---
15MIN BLOOD ADMIN CHECK. PT STATES THAT HIS SHORTNESS OF BREATH IS IMPROVING AND THAT HE IS HAVING NO ADVERSE REACTIONS TO THE BLOOD ADMIN. PT SITTING UP IN BED WATCHING A MOVING AT THIS TIME. LIQUID IN MARTINEZ BAG IS A MIXTURE OF A VERY LIGHT YELLOW AND PINK, PT STATES THAT HE IS STILL HAVING SOME BURING AROUND THE CATHETER.
--- NOTE | 2020-06-26 15:04 | NUR ---
MED REC COMPLETE
--- NOTE | 2020-06-26 16:20 | NUR ---
BLOOD INFUSION ENDED AT THIS TIME. PT TOLERATED WELL. NO ADVERSE REACTIONS TO BLOOD ADMIN AT THIS TIME. PT STATES HE IS FEELING BETTER AND STATES THAT SHORTNESS OF BREATH HAS RESOLVED. PTS AT BEDSIDE AT THIS TIME. ALL QUESTIONS ANSWERED TO THE BEST OF THIS RNS ABILITY. THIS RN DID PROVIDE EDUCATION TO PT AND PTS ABOUT WHAT TO LOOK FOR WHEN THEY GO HOME IN THE TUBE, NOT THE BAG. BOTH STATED UNDERSTANDING OF THIS
--- NOTE | 2020-06-26 20:05 | NUR ---
SUB PLANT MANAGER ROUNDING NOTE. PT RESTING IN BED WATCHING TV. STATES THAT HE WOULD LIKE TO TAKE A DOSE OF PAIN MEDICATION WITH NIGHTLY MEDICATIONS. WILL NOTIFY PRIMARY RN. PT DENIES FURTHER QUESTIONS OR CONCERNS AT THIS TIME. CALL LIGHT IN REACH. WHITE BOARD UPDATED.
--- NOTE | 2020-06-26 20:07 | NUR ---
REPORT RECEIVED FROM LIGIA HASSAN. PATIENT AWAKE IN BED. CBI COMPLETE. CALL LIGHT WITHIN REACH.
--- NOTE | 2020-06-26 21:36 | NUR ---
SCHEDULED MEDICATIONS ADMINISTERED, ASSESSMENT COMPLETE. MARTINEZ WNL. VSS, A+Ox4. IVF INFUSING WNL. CMS INTACT. CALL LIGHT WITHIN REACH. NO FURTHER NEEDS AT THIS TIME.
--- NOTE | 2020-06-26 23:37 | NUR ---
ROUNDED ON PATIENT, AWAKE SITTING UP IN BED, WATCHING TV. STATES PAIN IN STOMACH IS "BETTER NOW". NO FURTHER NEEDS REPORTED AT THIS TIME. CALL LIGHT WITHIN REACH.
--- NOTE | 2020-06-27 02:42 | NUR ---
ROUNDED ON PATIENT, VITALS TAKEN, PT REPOSITIONED IN BED. ASSESSMENT COMPLETE. WATER REFRESHED. CBI CLAMPED, DRAINAGE LIGHT PINK IN COLOR, NO CLOTS NOTED. CALL LIGHT WITHIN REACH, NO OTHER NEEDS REPORTED AT THIS TIME
--- NOTE | 2020-06-27 03:26 | NUR ---
PATIENT CALLED. ICE WATER CUP FELL ON THE FLOOR. NEW ICE WATER CUP PROVIDED. NO FURTHER NEEDS AT THIS TIME.
--- NOTE | 2020-06-27 05:24 | NUR ---
ROUNDED ON PATIENT, AWAKE IN BED. PATIENT REPORTS NO PAIN OR DISCOMFORT. CBI CLAMPED, MARTINEZ DRAINAGE LIGHT PINK IN COLOR, NO CLOTS NOTED IN TUBING. CALL LIGHT WITHIN REACH, NO OTHER NEEDS AT THIS TIME.
--- NOTE | 2020-06-27 05:35 | NUR ---
IV PUMP ALARMING, INFUSING WNL ORDERED. pt RESTING IN BED AWAKE. NO REQUESTS AT THIS TIME.
--- NOTE | 2020-06-27 05:38 | NUR ---
PATIENT REPORTED HEARTBURN LAST NIGHT, RESOLVED WITH NEW MED ORDERS. CBI CLAMPED, DRAINAGE IN MARTINEZ BAG LIGHT PINK WITH NO CLOTS NOTED IN TUBING. CATH CARE COMPLETE AND PATIENT EDUCATION PROVIDED. IVF INFUSING WNL. VSS, A+O, CPOX IN PLACE. HRR, LUNG SOUNDS CLEAR, BOWEL TONES ACTIVE. CMS INTACT. PT CALLS APPROPRIATELY. NO REPORTS OF ACUTE PAIN THIS SHIFT.
--- NOTE | 2020-06-27 06:10 | NUR ---
SCHEDULED MEDICATIONS ADMINISTERED, VS AND I/O'S COMPLETE. PT REPOSITIONED WITH NEW DRAW SHEET. CBI CLAMPED, DRAINAGE UNCHANGED--LIGHT PINK WITH NO CLOTS NOTED. PT RESTING IN BED, CALL LIGHT IN REACH, NO FURTHER NEEDS NOTED.
--- NOTE | 2020-06-27 07:41 | NUR ---
PATIENT RESTING IN BED. WHITE BOARD UPDATED. PATIENT'S HANDS AND FACE WASHED. CALL LIGHT WITHIN REACH. NO OTHER NEEDS AT THIS TIME
--- NOTE | 2020-06-27 09:20 | NUR ---
PATIENT RESTING IN BED. STUDENT RN IN ROOM. VITAL SIGNS AND I&O DONE. DENTURES CARE DONE. CALL LIGHT WITHIN REACH. NO OTHER NEEDS AT THIS TIME
--- NOTE | 2020-06-27 09:30 | NUR ---
Pt anxious this morning. Pt requesting benadryl and home medications. This RN stated to patient that I would have to call the provider to obtain an order for medications he was needing. Pt stated he would like to just go home instead. Spoke with Patient's regarding patient being upset and wanting his medications. Provider notified, plan of care is for patient to discharge home after his am scheduled antibiotic. to be updated.
[2020-06-27] MEDS ORDERED: KEFLEX500 MG PO (10:49)
[2020-06-27] MEDS ORDERED: NORCO 5-325 TA1 EACH PO (10:50)
--- NOTE | 2020-06-27 14:12 | NUR ---
PT WELCOMED ME IN-HIS WAS HELPING HIM GET DRESSED AND READY FOR DC GAVE ENCOURAGEMENT
--- NOTE | 2020-06-27 16:21 | OR ---
[facility] [address], [place] [address] Signed DATE OF OPERATION: 06/26/2020 SURGEON: Pito Irvin MD PREOPERATIVE DIAGNOSES: 1. Benign prostatic hyperplasia with active lower urinary tract symptoms. 2. History of retroperitoneal fibrosis. POSTOPERATIVE DIAGNOSES: 1. Benign prostatic hyperplasia with active lower urinary tract symptoms. 2. History of retroperitoneal fibrosis. NAMES OF THE PROCEDURES: 1. Cystoscopy with left retrograde pyelogram and attempted right retrograde pyelogram. 2. Transurethral resection of prostate. ANESTHESIA: General. ESTIMATED BLOOD LOSS: 400 mL. COMPLICATIONS: None. SPECIMENS: Prostate chips sent to pathology for evaluation. DRAINS: 22-Comoran three-way catheter connected to continuous bladder irrigation. INDICATIONS FOR PROCEDURE: Mr. Olvera is a very pleasant 74-year-old gentleman, who was initially referred to me by Dr. Neel Lane to be evaluated for possible BPH with lower urinary tract symptoms. The patient has a relatively large inguinal hernia that does require repair. Dr. Lane was concerned that the hernia was made worse by the patient's straining to void for long periods of time. After undergoing uroflow with cystoscopy, it was determined that the patient was experiencing active bladder outlet obstruction due to benign prostatic enlargement. The patient presents today to undergo transurethral resection of the prostate for definitive management of his bladder outlet obstruction. Given his remote Electronically Signed By: PITO IRVIN MD 06/27/20 1621 PATIENT NAME: WAGNER OLVERA OPERATIVE REPORT DATE OF : 45 REPORT #: [id number] PHYSICIAN: PITO IRVIN MD PCP: RICHI MATOS MD REPORT IS CONFIDENTIAL AND NOT TO BE RELEASED WITHOUT AUTHORIZATION [facility] [address], [place] [address] Signed history of retroperitoneal fibrosis, I also made the decision to perform bilateral retrograde pyelograms for documentation of the current drainage of his collecting systems. OPERATIVE FINDINGS: 1. On cystoscopy, there was no evidence of any suspicious masses, lesions, or stones within the bladder. There was diffuse grade 4 bladder wall trabeculation noted. Left retrograde pyelogram was performed which revealed a patent left ureter with no evidence of dilation of the left kidney. I was unable to perform successful cannulization of the right ureter due to its extremely diminutive size. However, it did appear to be actively effluxing small amounts of urine. 2. The patient underwent a routine resection of the prostate using a 24-Comoran bipolar loop, followed by a bipolar button at the end of the procedure for hemostasis. Approximately 20-30 g of tissue was removed successfully without complication. I did run into some bleeding toward the end of the procedure. However, I was unable to find any active source of bleeding within the prostatic urethra. It was later determined by me that the patient was actively oozing from resection, which was oozing since status post resection, related to recent NSAID intake that was unbeknownst to me prior to surgery. The patient is also on long-standing warfarin therapy. 3. Ureteroscopy reveals no evidence of any urethral stricture or stenosis. The prostate was resected, avoiding the external sphincter as per routine. At the end of the procedure, a 22-Comoran three-way Palomares catheter was inserted into the patient's bladder, and connected to continuous bladder irrigation. DESCRIPTION OF PROCEDURE: After informed consent was obtained, the patient was taken back to the operating room. He was transferred from the [facility] to the operating room table, where general anesthesia was induced. He was placed in the dorsal lithotomy position and his genitalia prepped and draped in sterile fashion. Using a 30-degree lens on a 22.5-Comoran introducer, rigid cystoscope was inserted through his urethra into his bladder, under direct visualization. Panendoscopic views of bladder then obtained. Please see above findings. Attention was turned to the left ureteral orifice. A cone-tipped catheter was advanced to the left ureteral orifice and a left retrograde pyelogram was performed. Please see above findings. I then turned my attention to the right ureteral orifice, which was quite diminutive. The cone-tipped catheter was not effective in cannulating the UO, and I attempted a small whistle-tip catheter and this was also unsuccessful. Since the retrograde was being performed for routine evaluation, I decided to abort this portion of this procedure and focus on the chart. The patient will require a renal ultrasound at some point during his postoperative course. Once the retrograde pyelogram was performed, the cystoscope was removed. The patient's urethra was dilated from 18-Comoran to 30-Comoran without difficulty. I then inserted a 26-Comoran resectoscope sheath using a visual obturator. This was then switched out for the resectoscope. I Electronically Signed By: PITO IRVIN MD 06/27/20 4908 PATIENT NAME: WAGNER OLVERA OPERATIVE REPORT DATE OF : 45 REPORT #: [id number] PHYSICIAN: PITO IRVIN MD PCP: RICHI MATOS MD REPORT IS CONFIDENTIAL AND NOT TO BE RELEASED WITHOUT AUTHORIZATION [address] [address] Signed then began resection of the median lobe of the prostate with using a 24-Comoran bipolar loop. I then resected the left and the right lobe of the prostate without difficulty. The prostate chips were irrigated from the patient's bladder using a Lisa syringe. I continued my resection without any difficulty until the end of the procedure when the patient began to ooze blood. I thoroughly evaluated the prostatic urethra and cauterized all the actively bleeding vessels that I could see. I then switched the loop for a bipolar tip and began cauterizing the resected area of the prostatic urethra. This overall did not appear to help the generalized oozing from the prostatic urethra. I evaluated the bladder and did not see any obvious evidence of bleeding from that area as well. I then made a decision to ask the nurse airline mechanic to administer TXA for assistance in hemostasis. This was administered by the nurse airline mechanic. I continued evaluation of the prostatic urethra and was never able to find any active bleeders that would be heavily contributing to his oozing. The patient's bladder was then irrigated of any additional blood clot and/or prostate chips with the Lisa syringe. I then chose to finish the procedure as I was unable to find any active bleeders. The nurse airline mechanic then notified me that the patient had taken Aleve earlier in the morning. It was at this time that I decided that the patient's prostate was oozing in a diffuse fashion versus any focal area of hemorrhage. I decided to remove the resectoscope leaving the sheath behind. I inserted a 0.35 Sensor wire through the sheath and into the patient's bladder. I removed the 26-Comoran sheath, leaving the wire behind. Over the wire, I passed a 22-Comoran three-way Palomares catheter into the patient's bladder, connected it to continuous bladder irrigation after manually irrigating the bladder with a catheter. The patient's urine took about 5 minutes to clear. However, it did begin to clear quite nicely once the Palomares catheter was then in good position. Once the patient's urine cleared nicely on CBI, in combination with TXA treatment. The catheter was placed on traction using a 100 mL bag of normal saline. The procedure was then terminated. The patient tolerated the procedure well without any complication. He will now be transferred to the postanesthesia care unit in stable condition. DISPOSITION: I discussed the details of today's procedure with the patient's and answered all of her questions. The patient underwent a stat H and H at the end of the procedure and his hemoglobin was found to be down from 13.2 down to 9. He was given 1 unit of packed red blood cells in the PACU. I notified his that he did lose a decent amount of blood during the procedure, which is unusual. However, this could be related to his recent NSAID use in combination with his chronic warfarin use. His gross hematuria remains resolved. He will be transferred to the floor where his diet will be advanced as tolerated and he will continue with continuous bladder irrigation which will be weaned off beginning around 8 p.m. tonight. He will receive another dose of IV Rocephin in the a.m. before hopefully being weaned off the CBI and sent home tomorrow morning in stable condition. He will be scheduled to return to clinic this to undergo a voiding trial with the Urology nurse. Electronically Signed By: PITO IRVIN MD 06/27/20 1621 PATIENT NAME: WAGNER OLVERA OPERATIVE REPORT DATE OF : 45 REPORT #: [id number] PHYSICIAN: PITO IRVIN MD PCP: RICHI MATOS MD REPORT IS CONFIDENTIAL AND NOT TO BE RELEASED WITHOUT AUTHORIZATION [address] [address] Signed Pito Irvin MD AR/MODL /[id number] Copies: ~ Electronically Signed By: PITO IRVIN MD 06/27/20 1621 PATIENT NAME: WAGNER OLVERA OPERATIVE REPORT DATE OF : 45 REPORT #: [id number] PHYSICIAN: PITO IRVIN MD PCP: RICHI MATOS MD REPORT IS CONFIDENTIAL AND NOT TO BE RELEASED WITHOUT AUTHORIZATION
--- NOTE | 2020-07-03 08:33 | PATH ---
[facility] [address] [place], [place] [address] Signed SPECIMEN(S): A PROSTATE CHIPS (TUR) SPECIMEN SOURCE: A. PROSTATE CHIPS (TUR) CLINICAL HISTORY: Pre: BPH. FINAL PATHOLOGIC DIAGNOSIS: Prostate chips, transurethral resection: - Benign prostatic stromal hyperplasia with scattered chronic inflammation. - Fragment of hyperplastic smooth muscle bundles. - Fragments of urothelium with no histopathologic abnormality. NAL:cml:C2NR MICROSCOPIC EXAMINATION: Histologic sections of all submitted blocks are examined by light microscopy. These findings, together with the gross examination, support the pathologic diagnosis. GROSS DESCRIPTION: The specimen, labeled "DM, prostate chips," is received in formalin and consists of 7 grams of irregular shaped pink-werner, rubbery tissue fragments that in aggregate measure 6.2 x 3.7 x 1.2 cm. The specimen is entirely submitted in cassettes (A1-A5). JS (under the direct supervision of a pathologist) The Gross Description was prepared using a voice recognition system. The report was reviewed for accuracy; however, sound-alike word errors, addition and/or deletions may occur. If there is any question about this report, please contact Client Services. PERFORMING LABORATORY: The technical component was performed by [facility], [address] [place] [address] (Community Cultural Development Officer: Leola Echeverria MD; CLIA# [id number]). [facility], [address] [address] (CLIA# [id number]). Diagnostician: Audrey Corado MD Pathologist Electronically Signed 07/03/2020 PATIENT NAME: WAGNER OLVERA PATHOLOGY DATE OF : 45 REPORT #: [id number] PHYSICIAN: [facility] PCP: RICHI MATOS MD REPORT IS CONFIDENTIAL AND NOT TO BE RELEASED WITHOUT AUTHORIZATION [address] [address] Signed Copies: ~ PATIENT NAME: WAGNER OLVERA PATHOLOGY DATE OF : 45 REPORT #: [id number] PHYSICIAN: [facility] PCP: RICHI MATOS MD REPORT IS CONFIDENTIAL AND NOT TO BE RELEASED WITHOUT AUTHORIZATION
== END 2020-06-27 11:30 | disposition home or self-care (01) ==
LOC: OPS 07:30 → DS 07:30 → OPS 08:30 → DS 08:30 → MS 12:45 → OPS 12:46 → MS 06-27 11:30
PROVIDERS: ADMIT Urology; ATTEND Urology
PROC: 0V507ZZ Destruction of Prostate, Via Natural or Artificial Opening (ICD-10-PCS; principal; 2020-06-26 08:30)
DX: N40.1 Benign prostatic hyperplasia with lower urinary tract symptoms (principal); N39.41 Urge incontinence; N13.8 Other obstructive and reflux uropathy; R39.198 Other difficulties with micturition; N13.5 Crossing vessel and stricture of ureter without hydronephrosis; I12.9 Hypertensive chronic kidney disease with stage 1 through stage 4 chronic kidney disease, or unspecified chronic kidney disease; N18.30 Chronic kidney disease, stage 3 unspecified; E78.5 Hyperlipidemia, unspecified; K21.9 Gastro-esophageal reflux disease without esophagitis; F32.9 Major depressive disorder, single episode, unspecified; Z20.828 Contact with and (suspected) exposure to other viral communicable diseases; Z79.899 Other long term (current) drug therapy; Z79.01 Long term (current) use of anticoagulants; Z87.891 Personal history of nicotine dependence
CPT/HCPCS: 00914; 36415; 36430; 74420; 80048; 85025; 85610; 86850; 86900; 86901; 86920; 88305; 96374; 96375; G0378; J0696; J1100; J1720; J1885; J2405; J2704; J3010; J7030; J7121; P9016; Q9967

== ENCOUNTER 2020-07-12 17:33 | Emergency (ER) | payer MEDICARE, OTHER ==
[~2020-07-12] VITALS: Ht 167.6 cm; Wt 65.8 kg
[~2020-07-12 17:33] MED LIST changes: +ALEVE220 MG PO; +KEFLEX500 MG PO; +NORCO 5-325 TA1 EACH PO; +PRAMIPEXOLE DI0.5 MG PO; +VENTOLIN HFA18 GM
--- NOTE | 2020-07-12 20:46 | EKG ---
[facility] [address] [facility] [place], [place] [address] Signed Normal sinus rhythm Normal ECG When compared with ECG of 20-JUN-2020 15:14, Nonspecific T wave abnormality now evident in Anterior leads Confirmed by YONIS CHAVEZ DO ([id number]) on 07/12/2020 8:46:36 PM Electronically Signed By: YONIS CHAVEZ DO 07/12/20 2046 PATIENT NAME: WAGNER OLVERA TRAN Electrocardiogram DATE OF : 45 PHYSICIAN: YONIS CHAVEZ DO REPORT #: [id number] REPORT IS CONFIDENTIAL AND NOT TO BE RELEASED WITHOUT AUTHORIZATION
[2020-07-12] MEDS ORDERED: LEVOFLOXACIN500 MG PO (20:58)
--- NOTE | 2020-07-13 21:41 | PATH ---
[facility] [address] [place], [place] [address] Signed ORDERING PHYSICIAN: Kirit Meyer MD PATIENT NAME: WAGNER OLVERA SR GENDER: M : 1945 Prior History: DATE CASE NUM ADEQUACY DIAGNOSIS HPV RESULTS PHYSICIAN The 5 most recent reports are included. This history does not include results of pap smears performed at another laboratory. SPECIMEN(S): MOLECULAR PATHOLOGY RESULTS: SARS-CoV-2 Not Detected ADDITIONAL NOTES.: The Linn Fusion SARS-CoV-2 Assay is a multiplex real-time PCR (RT-PCR) in vitro diagnostic test intended for the qualitative detection of RNA from SARS-CoV-2 from individuals who meet COVID-19 clinical and/or epidemiological criteria. In general, SARS-CoV-2 RNA can be detected during the acute phase of infection. Positive results indicate the presence of SARS-CoV-2 RNA. Clinical correlation with patient history and other diagnostic information is necessary to determine patient infection status. Positive results do not rule out bacterial infection or co-infection with other viruses. Negative results do not preclude SARS-CoV-2 infection and should not be used as the sole basis for patient management decisions. Negative results must be combined with other clinical observations, patient history, and epidemiological information. The Linn Fusion SARS-CoV-2 Assay is not yet approved or cleared by the [place] FDA. When there are no FDA-approved or cleared tests available, and other criteria are met, FDA can make tests available under an emergency access mechanism called an Emergency Use Authorization (EUA). The EUA for this test is supported by the Credit Card Interviewer of Health and Human Service's (HHS's) declaration that circumstances exist to justify the emergency use of in vitro diagnostics for the detection and/or diagnosis of the virus that causes COVID-19. This EUA will remain in effect for the duration of the COVID-19 declaration justifying emergency of IVDs, unless it is terminated or PATIENT NAME: WAGNER OLVERA SR PATHOLOGY DATE OF : 45 REPORT #: [id number] PHYSICIAN: LISS MARKS PCP: RICHI MATOS MD REPORT IS CONFIDENTIAL AND NOT TO BE RELEASED WITHOUT AUTHORIZATION [facility] [address] [facility] [place] [address] Signed revoked by FDA, after which the test may no longer be used. The Linn Fusion SARS-CoV-2 Assay is for use only under EUA in US laboratories certified under the Clinical Laboratory Improvement Amendments of 1988 (CLIA) to perform high complexity tests. [facility] is certified under CLIA to perform high complexity clinical laboratory testing. PERFORMING LABORATORY.: Molecular testing was performed by [facility] [place] [address] (Director Of Automation: Fox Andersen D.O.; CLIA#: [id number]) Diagnostician: System Interface Pathologist Electronically Signed 07/13/2020 Copies: ~ PATIENT NAME: WAGNER OLVERA SR PATHOLOGY DATE OF : 45 REPORT #: [id number] PHYSICIAN: LISS MARKS PCP: RICHI MATOS MD REPORT IS CONFIDENTIAL AND NOT TO BE RELEASED WITHOUT AUTHORIZATION
== END 2020-07-12 22:05 | disposition home or self-care (01) ==
LOC: ED 17:33
DX: N41.8 Other inflammatory diseases of prostate (principal); R06.02 Shortness of breath; Z20.828 Contact with and (suspected) exposure to other viral communicable diseases; I10 Essential (primary) hypertension; Z86.73 Personal history of transient ischemic attack (TIA), and cerebral infarction without residual deficits; Z87.891 Personal history of nicotine dependence; Z79.899 Other long term (current) drug therapy
CPT/HCPCS: 71045; 80053; 81001; 83605; 84484; 85025; 93005; 93010; 96365; 99285-25; C9803; J1956; J7030

== ENCOUNTER 2020-10-11 06:55 | Day surgery (SDC) | payer MEDICARE, OTHER ==
[~2020-10-11] VITALS: Ht 167.6 cm; Wt 68.1 kg
[~2020-10-11 06:55] MED LIST changes: +LEVOFLOXACIN500 MG PO
--- NOTE | 2020-10-11 11:06 | NUR ---
10/11/20 1106 Mellissa Chilel 1028 PT ARRIVED IN PACU NON RESPONSIVE TO NOXIOUS STIMULI WITH OPA IN PLACE. 1043 PT REACTIVE. OPA REMOVED. DENTURES RETURNED TO PT. 1045 PT TAKING SIPS OF WATER FOR DRY MOUTH. 1050 OXYGEN REMOVED. SATS DROPPED TO 88% ON RA WITH COUGH, DEEP BREATHING. O2 AT 2L VIA NC PLACED. 1100 SATS 98%. TO DS. REPORT GIVEN TO RN/SN. CALL LIGHT GIVEN TO PT.
--- NOTE | 2020-10-11 11:10 | NUR ---
PATIENT IS BACK FROM PACU. WATER AND COFFEE AT BEDSIDE TABLE. NO DESIRE TO USE THE RESTROOM AT THIS TIME. CALL LIGHT WITHIN REACH. 2L OF O2 VIA NASAL CANULA. NO FURTHER ASSISTANCE AT THIS TIME.
[2020-10-11] MEDS ORDERED: HYDROCODON-ACE1 EAC8 PO (11:28)
--- NOTE | 2020-10-11 11:54 | OR ---
[facility] [address] [place], [place] [address] Signed DATE OF OPERATION: 10/11/2020 SURGEON: Karthik Bridges MD PREOPERATIVE DIAGNOSIS: Reducible right moderate to large inguinal hernia. POSTOPERATIVE DIAGNOSIS: Reducible right indirect moderate to large inguinal hernia. PROCEDURE: Right Curtis onlay mesh inguinal herniorrhaphy. ESTIMATED BLOOD LOSS: Minimal. INDICATIONS: Kevin is a 75-year-old gentleman with a multitude of medical problems as listed in his history and physical. He has also been through quite a few surgeries including a left inguinal hernia repair. At that time, the hernia had been extending down into the scrotum and causing quite a bit of pain, so we went ahead and had it repaired. He continues to get around with his front-wheeled walker and he has to help his on a daily basis. He has noticed the right inguinal hernia has become larger and is now extending down into the right hemiscrotum. It is causing quite a bit of pain. One day he could not push it back inside, so he ended up in the emergency room. With some pain medication on board, the ER doctor was able to reduce it. He was therefore asked to see me with respect to the above. I have met with Kevin in the office and I had given him a brochure on hernias. We looked at that together page by page. I circled the sections relevant to him. He understands the nature of an inguinal hernia. He understands the difference between the primary suture repair and a mesh repair. We also reviewed the expected intraop and postop course. There is risk of surgery including, but not limited to bleeding, infection, scarring, change in contour of the skin, damage to the nerves, ischemic orchitis, recurrent hernias and chronic pain. He had expressed understanding and wished to proceed. DESCRIPTION OF PROCEDURE: I have met with Kevin in our preop area. We both agreed on the right groin and marked it appropriately. After this, he was taken in the operating room and placed in a supine position under general endotracheal tube anesthesia. He was given preoperative antibiotics along with subcutaneous heparin. SCDs were utilized. He was then prepped Electronically Signed By: KARTHIK BRIDGES MD 10/11/20 1154 PATIENT NAME: KEVIN OLVERA SR OPERATIVE REPORT DATE OF : 45 REPORT #: [id number] PHYSICIAN: KARTHIK BRIDGES MD PCP: RICHI MATOS MD REPORT IS CONFIDENTIAL AND NOT TO BE RELEASED WITHOUT AUTHORIZATION [facility] [address] [place], [place] [address] Signed and draped in the usual sterile fashion. A standard oblique incision was made over the right groin and carried down to the tissue bluntly and with the cautery. The external oblique fascia was opened along its length and developed mediolaterally. The iliohypogastric and ilioinguinal nerves were visualized and protected throughout the case. We found that he had a large indirect inguinal hernia sac extending down past the pubic tubercle. It did contain small intestine. The hernia sac was gently from the cord structures. The bowel was reduced. The neck of the hernia sac was doubly ligated with 2-0 PDS suture about 5-7 mm apart. The distal portion of the hernia sac was amputated and passed off the field. He also had a very weak bulging direct space. We went ahead and used our #2-0 PDS suture and we imbricated the inguinal 4-0 from the pubic tubercle up to the level of deep ring. I was just able to insert the tip of my index finger into the deep ring. After this, a piece of flat Prolene mesh was cut to fit his groin and a slit was made in the mesh to accommodate the cord structures at the level of deep ring. The mesh was held in place medially and laterally with help of running #1 Prolene suture. This gave excellent coverage of direct and indirect spaces. There was no undue tension of the mesh on the cord structures at the level of deep ring. The wound was then irrigated and suctioned out until clear. Local anesthetic was copiously injected in the wound. The external oblique fascia was closed over the repair with a running 2-0 PDS suture. Denis's fascia was reapproximated with a running 3-0 Monocryl suture. The dermis was reapproximated with interrupted 3-0 subcuticular Monocryl sutures. The skin edges were reapproximated with a running 5-0 fast absorbing plain gut suture. Dry gauze and tape were then applied. Kevin was awakened from his anesthesia, extubated in the OR, and taken to the recovery room in stable condition. Karthik Bridges MD ALB/MODL /[id number] cc: MD Richi Lowery MD Copies: KARTHIK BRIDGES MD Electronically Signed By: KARTHIK BRIDGES MD 10/11/20 1154 PATIENT NAME: KEVIN OLVERA SR OPERATIVE REPORT DATE OF : 45 REPORT #: [id number] PHYSICIAN: KARTHIK BRIDGES MD PCP: RICHI MATOS MD REPORT IS CONFIDENTIAL AND NOT TO BE RELEASED WITHOUT AUTHORIZATION [facility] [address] [place] [address] Signed RICHI MATOS MD ~ Electronically Signed By: KARTHIK BRIDGES MD 10/11/20 1154 PATIENT NAME: KEVIN OLVERA SR OPERATIVE REPORT DATE OF : 45 REPORT #: [id number] PHYSICIAN: KARTHIK BRIDGES MD PCP: RICHI MATOS MD REPORT IS CONFIDENTIAL AND NOT TO BE RELEASED WITHOUT AUTHORIZATION
--- NOTE | 2020-10-11 12:35 | NUR ---
PATIENT WAS ABLE TO VOID, RECEIVED VERBAL INSTRUCTIONS TO GET DRESSED TO PREPARE FOR DISCHARGE.CALL VAL GAMBOA. WAS CALLED TO TEMPERING KILN TENDER PATIENT.
--- NOTE | 2020-10-11 13:11 | NUR ---
LE 1250: PATIENT WAS GIVEN VERBAL DISCHARGE INSTRUCTIONS. PATIENT UNDERSTOOD ALL VERBAL ORDERS. PT WAS ABLE TO AMBULTE TO [facility] WITH ASSISTANCE OF STUDENT NURSE AND WALKER. PATIENT LEFT VIA WHEELCHAIR AND AMBULATED ON HIS OWN TO CAR. PICKED UP BY HIS .
== END 2020-10-11 13:00 | disposition home or self-care (01) ==
LOC: DS 06:55
PROVIDERS: ATTEND Colon & Rectal Surgery
PROC: 0YU50JZ Supplement Right Inguinal Region with Synthetic Substitute, Open Approach (ICD-10-PCS; principal; 2020-10-11 07:45)
DX: K40.90 Unilateral inguinal hernia, without obstruction or gangrene, not specified as recurrent (principal); I12.9 Hypertensive chronic kidney disease with stage 1 through stage 4 chronic kidney disease, or unspecified chronic kidney disease; N18.30 Chronic kidney disease, stage 3 unspecified; E78.5 Hyperlipidemia, unspecified; K21.9 Gastro-esophageal reflux disease without esophagitis; F32.9 Major depressive disorder, single episode, unspecified; I69.351 Hemiplegia and hemiparesis following cerebral infarction affecting right dominant side; G62.9 Polyneuropathy, unspecified; I73.9 Peripheral vascular disease, unspecified; F17.290 Nicotine dependence, other tobacco product, uncomplicated; Z86.718 Personal history of other venous thrombosis and embolism; Z79.01 Long term (current) use of anticoagulants; Z85.828 Personal history of other malignant neoplasm of skin; Z89.011 Acquired absence of right thumb; Z87.438 Personal history of other diseases of male genital organs; Z79.1 Long term (current) use of non-steroidal anti-inflammatories (NSAID); Z79.899 Other long term (current) drug therapy; Z97.4 Presence of external hearing-aid
CPT/HCPCS: 00830; C1781; J0330; J0690; J1100; J1644; J1885; J2250; J2405; J2704; J2765; J3010; J7121

== ENCOUNTER 2021-10-13 09:48 | Emergency (ER) | payer MEDICARE, OTHER ==
[~2021-10-13] VITALS: Ht 167.6 cm; Wt 68.0 kg
[~2021-10-13 09:48] MED LIST changes: +CEPHALEXIN500 MG PO; +HYDROCODON-ACE1 EAC8 PO
--- OUTSIDE RECORDS SUMMARY | 2021-10-13 09:50 | XMS ---
PreManage Notification: WAGNER OLVERA Security Field Marketing Lead Events No recent Security Events currently on file CRITERIA MET - [facility] CARE PROVIDERS There are no care providers on record at this time. Geovani has no Care Guidelines for this patient. Andrew VISIT COUNT (12 MO.) 1 BRITNEY Jorgensen TOTAL 1 NOTE: Visits indicate total known visits. ED/UCC VISIT TRACKING (12 MO.) 10/13/2021 09:48 BRITNEY Otero OR TYPE: Emergency COMPLAINT: - NAUSEA INPATIENT VISIT TRACKING (12 MO.) No inpatient visits to display in this time frame [email or web address]
[2021-10-13] MEDS ORDERED: ONDANSETRON ODT4 MG SL (13:43)
--- NOTE | 2021-10-13 20:25 | EKG ---
[facility] [address] [facility] [place] [address] Signed Normal sinus rhythm Left axis deviation Prolonged QT Abnormal ECG When compared with ECG of 05-OCT-2020 13:00, Nonspecific T wave abnormality has replaced inverted T waves in Inferior leads QT has lengthened Confirmed by MATTHIEU MACHADO MD ([id number]) on 10/13/2021 8:25:30 PM Electronically Signed By: MATTHIEU MACHADO MD 10/13/212024 PATIENT NAME: WAGNER OLVERA Electrocardiogram DATE OF : 45 PHYSICIAN: MATTHIEU MACHADO MD REPORT #: [id number] REPORT IS CONFIDENTIAL AND NOT TO BE RELEASED WITHOUT AUTHORIZATION
== END 2021-10-13 13:55 | disposition home or self-care (01) ==
LOC: ED 09:48
DX: E86.0 Dehydration (principal); Z20.822 Contact with and (suspected) exposure to COVID-19; Z86.73 Personal history of transient ischemic attack (TIA), and cerebral infarction without residual deficits; I10 Essential (primary) hypertension; Z87.891 Personal history of nicotine dependence; Z79.01 Long term (current) use of anticoagulants; Z79.899 Other long term (current) drug therapy
CPT/HCPCS: 71045; 76705; 80053; 81001; 83605; 83690; 84484; 85025; 93005; 93010; 96374; 99285-25; C9803; J2405; J7030; U0003

== ENCOUNTER 2022-01-21 06:03 | Emergency (ER) | payer MEDICARE, OTHER ==
[~2022-01-21] VITALS: Ht 167.6 cm; Wt 61.0 kg
[~2022-01-21 06:03] MED LIST changes: +ONDANSETRON ODT4 MG SL
--- OUTSIDE RECORDS SUMMARY | 2022-01-21 06:06 | XMS ---
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 Care History Medical/Surgical 10/15/2021 [facility] - Patient is currently established with [facility]. If patient is seen in the ED during business hours. Please contact CHWs at [facility]. Care Recommendation: If this patient has had 5 or more Emergency Department visits in the last 12 months.\T\nbsp; Patient will require education on the scope and purpose of the ED as an acute care provider not a Primary Care Provider and should not be utilized for chronic conditions.\T\nbsp; These are guidelines and the provider should exercise clinical judgment when providing care. 10/15/2021 [facility] Advised patient to follow up with PCP, Dr. Sauceda if he is not getting better. Patient agreed. E.D. VISIT COUNT (12 MO.) [address] [facility] TOTAL 2 NOTE: Visits indicate total known visits. ED/UCC VISIT TRACKING (12 MO.) 01/21/2022 06:03 [facility] [place] TYPE: Emergency COMPLAINT: - GROIN PAIN 10/13/2021 09:48 [facility] [place] TYPE: Emergency COMPLAINT: - NAUSEA DIAGNOSES: - Dehydration - prison (current) use of anticoagulants - Personal history of nicotine dependence - Personal history of transient ischemic attack (TIA), and cerebral infarction without residual deficits - Weakness - Essential (primary) hypertension - Other correction (current) drug therapy INPATIENT VISIT TRACKING (12 MO.) 12/03/2021 08:03 [facility] [place] TYPE: Surgical Services DIAGNOSES: - Diaphragmatic hernia with obstruction, without gangrene - Diaphragmatic hernia without obstruction or gangrene [email or web address]
[2022-01-21] MEDS ORDERED: OXYBUTYNIN CHLOR5 M1 PO (06:17)
== END 2022-01-21 11:12 | disposition home or self-care (01) ==
LOC: ED 06:03
DX: R10.31 Right lower quadrant pain (principal); G89.29 Other chronic pain; Z86.73 Personal history of transient ischemic attack (TIA), and cerebral infarction without residual deficits; Z87.891 Personal history of nicotine dependence; I10 Essential (primary) hypertension; Z79.899 Other long term (current) drug therapy; Z79.01 Long term (current) use of anticoagulants
CPT/HCPCS: 36415; 74177; 80053; 81001; 85025; 85610; 85730; 96366; 96375; 99284-25; A9270; J1170; J2405; J3480; J7030; J7060; Q9967

== ENCOUNTER 2022-01-26 10:36 | Emergency (ER) | payer MEDICARE, OTHER ==
[~2022-01-26] VITALS: Ht 167.6 cm; Wt 61.0 kg
[~2022-01-26 10:36] MED LIST changes: +OXYBUTYNIN CHLOR5 M1 PO
--- OUTSIDE RECORDS SUMMARY | 2022-01-26 10:38 | XMS ---
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 Care History Medical/Surgical 10/15/2021 [facility] - Patient is currently established with [facility]. If patient is seen in the ED during business hours. Please contact CHWs at [facility]. Care Recommendation: If this patient [...] exercise clinical judgment when providing care. 10/15/2021 [facility] Advised patient to follow up with PCP, Dr. Matos if he is not getting better. Patient agreed. E.D. VISIT COUNT (12 MO.) [address] [facility] TOTAL 3 NOTE: Visits indicate total known visits. ED/UCC VISIT TRACKING (12 MO.) 01/26/2022 10:36 [facility] TYPE: Emergency COMPLAINT: - GROIN PAIN 01/21/2022 06:03 [facility] [place] TYPE: Emergency COMPLAINT: - GROIN PAIN DIAGNOSES: - Other fci (current) drug therapy - Lower abdominal pain, unspecified - Right lower quadrant pain - Other chronic pain - Personal history of nicotine dependence - Personal history of transient ischemic attack (TIA), and cerebral infarction without residual deficits - skilled nursing (current) use of anticoagulants - Essential (primary) hypertension 10/13/2021 09:48 [facility] [place] TYPE: Emergency COMPLAINT: - NAUSEA DIAGNOSES: - Dehydration - skilled nursing (current) use of anticoagulants - Personal history of nicotine dependence - Personal history of transient ischemic attack (TIA), and cerebral infarction without residual deficits - Weakness - Essential (primary) hypertension - Other fci (current) drug therapy INPATIENT VISIT TRACKING (12 MO.) [facility] DIAGNOSES: - Diaphragmatic hernia with obstruction, without gangrene - Diaphragmatic hernia without obstruction or gangrene [id number]
== END 2022-01-26 14:11 | disposition home or self-care (01) ==
LOC: ED 10:36
DX: M79.604 Pain in right leg (principal); Z87.891 Personal history of nicotine dependence; Z79.899 Other long term (current) drug therapy; Z79.01 Long term (current) use of anticoagulants
CPT/HCPCS: 81001; 99283

== ENCOUNTER 2022-07-25 15:32 | Emergency (ER) | payer MEDICARE ==
[~2022-07-25] VITALS: Ht 167.6 cm; Wt 61.0 kg
[~2022-07-25 15:32] MED LIST changes: +LOSARTAN POTASS25 MG PO; +TRAZODONE HCL100 MG PO
--- OUTSIDE RECORDS SUMMARY | 2022-07-25 15:34 | XMS ---
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 Care History Medical/Surgical 10/15/2021 [facility] - Patient is currently established with [facility]. If patient is seen in the ED during business hours. Please contact CHWs at [facility]. Care Recommendation: If this patient [...] exercise clinical judgment when providing care. 10/15/2021 [facility] Advised patient to follow up with PCP, Dr. Sauceda if he is not getting better. Patient agreed. E.D. VISIT COUNT (12 MO.) [address] [facility] TOTAL 4 NOTE: Visits indicate total known visits. ED/UCC VISIT TRACKING (12 MO.) 07/25/2022 15:33 [facility] TYPE: Emergency COMPLAINT: - ABDOMINAL PAIN 01/26/2022 10:36 [facility] TYPE: Emergency COMPLAINT: - GROIN PAIN DIAGNOSES: - Other terminal gauger (current) drug therapy - Pain in right leg - skilled nursing (current) use of anticoagulants - Right lower quadrant pain - Personal history of nicotine dependence 01/21/2022 06:03 [facility] [place] TYPE: Emergency COMPLAINT: - GROIN PAIN DIAGNOSES: - Other terminal gauger (current) drug therapy - Essential (primary) hypertension - Personal history of transient ischemic attack (TIA), and cerebral infarction without residual deficits - Other chronic pain - Lower abdominal pain, unspecified - superintendent terminal (current) use of anticoagulants - Personal history of nicotine dependence - Right lower quadrant pain 10/13/2021 09:48 [facility] [place] TYPE: Emergency COMPLAINT: - NAUSEA DIAGNOSES: - Contact with and (suspected) exposure to COVID-19 - Other nursing home (current) drug therapy - Weakness - Personal history of nicotine dependence - Dehydration - Essential (primary) hypertension - Personal history of transient ischemic attack (TIA), and cerebral infarction without residual deficits - superintendent terminal (current) use of anticoagulants INPATIENT VISIT TRACKING (12 MO.) 12/03/2021 08:03 [facility] [place] TYPE: Surgical Services DIAGNOSES: - Diaphragmatic hernia with obstruction, without gangrene - Diaphragmatic hernia without obstruction or gangrene [id number]
[2022-07-25] MEDS ORDERED: ONDANSETRON ODT8 MG PO (18:54)
== END 2022-07-25 19:28 | disposition home or self-care (01) ==
LOC: ED 15:32
DX: A08.4 Viral intestinal infection, unspecified (principal); I10 Essential (primary) hypertension; Z86.73 Personal history of transient ischemic attack (TIA), and cerebral infarction without residual deficits; Z87.891 Personal history of nicotine dependence; Z79.899 Other long term (current) drug therapy; Z79.01 Long term (current) use of anticoagulants
CPT/HCPCS: 36415; 70450; 74177; 80053; 85025; 85610; 99284-25; J2405; J7030; Q9967

== ENCOUNTER 2024-06-07 20:20 | Inpatient (IN) | payer MEDICARE, OTHER ==
[~2024-06-07] VITALS: Ht 167.6 cm; Wt 62.0 kg
[~2024-06-07 20:20] MED LIST changes: +ONDANSETRON ODT8 MG PO
[2024-06-07] MEDS ORDERED: ATORVASTATIN CA40 MG PO (20:30)
[2024-06-07] MEDS ORDERED: AMOX TR-K CLV1 EAC1 PO (20:30)
[2024-06-07] MEDS ORDERED: methylPREDNISolone SOD SUCC 125 MG/2 ML VIAL IV ONE (20:30)
[2024-06-07] MEDS ORDERED: ALBUTEROL SULFATE 0.5% 2.5 MG/0.5 ML VIAL INH ONE (20:30)
[2024-06-07] MEDS ORDERED: ondansetron HCL 4 MG/2 ML VIAL IV ONE (21:00)
[2024-06-07] MEDS ORDERED: dilTIAZem HCL 25 MG/5 ML VIAL IV ONE ×2 (21:15→22:00)
[2024-06-07 21:19] LABS: INFLUENZA B NAA NEGATIVE (NEGATIVE); RESPIRATORY SYNCYTIAL VIR NAA NEGATIVE (NEGATIVE)
[2024-06-07 22:05] LABS: BASOPHILS 0.6 % (0-2); EOSINOPHILS 0.1 % (0-6); HEMATOCRIT 49.9 % (35.0-50.0); HEMOGLOBIN 16.5 g/dL (12.0-18.0); MCH 34.9 (27-36); MCHC 33.2 g/dl (30-36); MCV 105.2 fl (81-99); MONOCYTES 5.7 % (0-12); NEUTROPHILS 86.6 % (39-80); PLATELET COUNT 126 K/uL (140-440); RBC 4.74 M/ul (4.3-5.7); RDW 13.9 (10.5-15.0)
[2024-06-07 22:16] LABS: INR 1.44 (0.80-1.30); PROTIME 16.8 Sec (11.2-14.2)
[2024-06-07 22:20] LABS: ALBUMIN 3.4 g/dL (3.4-5.0); ALBUMIN/GLOBULIN RATIO 0.89 (1.1-2.4); ANION GAP 16.5 (7-21); BILIRUBIN, TOTAL 0.8 ng/dL (0.2-1.0); BUN/CREATININE RATIO 13.1 (6.0-28.6); CALCIUM 8.7 mg/dL (8.5-10.1); CREATININE, SERUM 1.45 mg/dL (0.70-1.30); POTASSIUM 2.5 mmol/L (3.5-5.1); PROTEIN, TOTAL 7.2 g/dL (6.4-8.2)
[2024-06-07] MEDS ORDERED: POTASSIUM CHLORIDE 10 MEQ/100 ML BAG IV ONE (22:45)
[2024-06-07] MEDS ORDERED: POTASSIUM CHLORIDE 10 MEQ TABCR PO ONE (22:45)
[2024-06-07] MEDS ORDERED: MAGNESIUM SULFATE 2 GM/50 ML BAG IV ONE (22:45)
[2024-06-07] MEDS ORDERED: dilTIAZem HCL 30 MG TAB PO ONE (23:15)
[2024-06-07] MEDS ORDERED: OSELTAMIVIR PHOSPHATE 75 MG CAP PO ONE (23:15)
[2024-06-07] MEDS ORDERED: ACETAMINOPHEN 325 MG TAB PO PRN (23:30)
[2024-06-07] MEDS ORDERED: PRAMIPEXOLE DIHYDROCHLORIDE 0.5 MG TAB PO ONE (23:30)
[2024-06-07] MEDS ORDERED: TRAZODONE HCL 50 MG TAB PO ONE (23:30)
[2024-06-07] MEDS ORDERED: ALBUTEROL SULFATE 0.083% 3 ML VIAL INH PRN (23:30)
[2024-06-07] MEDS ORDERED: ondansetron HCL 4 MG/2 ML VIAL IV PRN (23:30)
[2024-06-07] MEDS ORDERED: SODIUM CHLORIDE 0.9% 1,000 ML IV SCH (23:30)
[2024-06-08] VITALS (15 sets, daily range): BP systolic 92–127; BP diastolic 51–113
--- NOTE | 2024-06-08 01:10 | NUR ---
PATIENT ARRIVED TO THE FLOOR VIA STRETCHER. PATIENT ASSISTED BY STAFF TO HOSPITAL BED. PATIENTS VITALS TAKEN AND RECORDED. PATIENT IS ON 2L VIA NC. PATIENT PLACED ON MONITOR. PATIENT HAS IV INFUSING PER ORDER. PATIENT DENIES ANY PAIN OR SOB. PATIENT PROVIDED FRESH ICE WATER AND SANDWICH BOX. PATIENT EDUCATED VENTILATING EXPERT LIGHT USE. PATIENT UPDATE DON PLAN OF CARE AND ALL QUESTIONS ANSWERED. PATIENT DENIES ANY FURTHER NEEDS. CALL LIGHT IN REACH. BED ALARM ON FOR SAFETY.
--- NOTE | 2024-06-08 01:49 | NUR ---
PATIENT REPOSITIONED IN BED. PATIENT TITRATED TO 3L VIA NC. PATIENT IS EATING APPLESAUCE AND WATCHING TV. PATIENT DENIES ANY FURTHER NEEDS. CALLL LIGHT IN REACH. IV INFUSING PER ORDER. BED ALARM ON FOR SAFETY.
--- NOTE | 2024-06-08 03:15 | NUR ---
PATIENT PROVIDED WARM BLANKET. NO FURTHER NEEDS NOTED. CALL LIGHT IN REACH. BED ALARM ON FOR SAFETY.
--- NOTE | 2024-06-08 03:57 | NUR ---
FRANCI IS RESTING IN BED WITH EYES CLOSED, RR 18. PATIENTS IV INFUSING PER ORDER. PATIENT REMAINS ON 3L VIA NC. CALL LIGHT IN REACH. BED ALARM ON FOR SAFETY.
[2024-06-08 05:25] LABS: BASOPHILS 0.2 % (0-2); HEMATOCRIT 45.4 % (35.0-50.0); HEMOGLOBIN 15.2 g/dL (12.0-18.0); LYMPHOCYTES 3.9 % (24-44); MCHC 33.6 g/dl (30-36); MCV 104.4 fl (81-99); MONOCYTES 2.5 % (0-12); NEUTROPHILS 93.4 % (39-80); PLATELET COUNT 129 K/uL (140-440); RBC 4.35 M/ul (4.3-5.7); RDW 14.2 (10.5-15.0)
--- NOTE | 2024-06-08 05:28 | NUR ---
PATIENTS VITALS RECORDED. PATIENTS ASSESMENT COMPLETED. PATIENT DENIES ANY SOB. PATIENT HAS NOTED DRY COUGH AND DENIES COUGHING ANYTHING UP. PATIENT REMAINS ON 3L VIA NC. PATIENTS IV INFUSING PER ORDER. PATIENT PROVIDED FRESH ICE WATER. PATIENT PROVIDED URINAL. PATIENT EDUCATED ON URINE OUTPUT. PATIENT IS ATTEMPTING TO VOID IN URINAL. PATIENT REQUESTS PRIVACY. PATIENT DENIES ANY FURTHER NEEDS. CALL LIGHT IN REACH. BED ALARM ON FOR SAFETY.
[2024-06-08 05:37] LABS: INR 1.52 (0.80-1.30); PROTIME 17.4 Sec (11.2-14.2)
[2024-06-08 05:39] LABS: ALBUMIN 2.9 g/dL (3.4-5.0); ALBUMIN/GLOBULIN RATIO 0.88 (1.1-2.4); ANION GAP 16.2 (7-21); BILIRUBIN, TOTAL 0.5 ng/dL (0.2-1.0); BUN/CREATININE RATIO 11.61 (6.0-28.6); CALCIUM 8.5 mg/dL (8.5-10.1); CREATININE, SERUM 1.98 mg/dL (0.70-1.30); MAGNESIUM 2.7 mg/dL (1.8-2.4); POTASSIUM 3.2 mmol/L (3.5-5.1); PROTEIN, TOTAL 6.2 g/dL (6.4-8.2)
[2024-06-08] MEDS ORDERED: LACTATED RINGER'S 1,000 ML IV ONE (07:00)
--- NOTE | 2024-06-08 07:01 | NUR ---
PATIENT BLADDER SCANNED FOR 115ML. PLACED CALL TO MD. EGAN TO PLACE ORDER FOR BOLUS.
--- NOTE | 2024-06-08 07:47 | NUR ---
REPORT GIVEN TO BRIGITTE STRONG. PATIENT TRANSFERRED TO ROOM 111
[2024-06-08] MEDS ORDERED: ALBUTEROL/IPRATROPIUM 3 ML NEB INH SCH (08:00)
[2024-06-08] MEDS ORDERED: dilTIAZem HCL 120 MG CAPCR PO SCH (09:00)
[2024-06-08] MEDS ORDERED: OSELTAMIVIR PHOSPHATE 75 MG CAP PO SCH (09:00)
[2024-06-08] MEDS ORDERED: METOPROLOL TARTRATE 25 MG TAB PO SCH ×2 (09:00)
--- NOTE | 2024-06-08 09:03 | NUR ---
PATIENT IS SITTING UP IN BED, NASAL CANNULA OFF AND PATIENT SATS ARE 88% ON ROOM AIR. 2L VIA NC REPLACED AND SATS ARE 93%. BEDSIDE PULSE OX IS ON. PATIENT IS ORDERING FOOD FOR NEXT MEAL. NO OTHER NEEDS AT THIS TIME.
--- NOTE | 2024-06-08 09:30 | NUR ---
Spoke with pt and he states he and his live in the [place] at [facility]. He states they will be moving into the main building in the next month. It has become too difficult for them to walk to the dinning room in the main building. He has been driving he and his , but states winter is coming and they feel they need to be closer. He denies other needs, no financial issues. If he need 02, he would like to use [facility]. He uses a [facility] and states they have grab bars everywhere. Pt plans on dc when he is medically cleared.
[2024-06-08] MEDS ORDERED: CITALOPRAM HYDROBROMIDE 20 MG TAB PO SCH (10:07)
--- NOTE | 2024-06-08 10:07 | EKG ---
[facility] [address] [place] [address] Signed Sinus bradycardia Left axis deviation Abnormal ECG When compared with ECG of 07-JUN-2024 20:45, (Unconfirmed) Sinus rhythm has replaced Atrial fibrillation Vent. rate has decreased BY 89 BPM Nonspecific T wave abnormality now evident in Lateral leads Confirmed by Abhijit Perez MD ([id number]) on 06/08/2024 10:07:08 AM Electronically Signed By: ABHIJIT PEREZ MD 06/08/24 1007 PATIENT NAME: WAGNER OLVERA Electrocardiogram DATE OF : 45 PHYSICIAN: ABHIJIT PEREZ MD REPORT #: [id number] REPORT IS CONFIDENTIAL AND NOT TO BE RELEASED WITHOUT AUTHORIZATION
[2024-06-08] MEDS ORDERED: FINASTERIDE 5 MG TAB PO SCH (10:08)
[2024-06-08] MEDS ORDERED: VITAMIN D325 MCG PO (10:26)
--- NOTE | 2024-06-08 10:26 | NUR ---
MED REC COMPLETE
--- NOTE | 2024-06-08 10:35 | NUR ---
UR CLINICAL REVIEW: 2 [place] FOR VERSALUS-MEETS INPATIENT CRITERIA MEDICARE INPT 06/07/24 @2333 ORDER MATCHES REG NO AUTH REQUIRED PER MEDICARE GUIDELINES DISCHARGE TO HOME WHEN STABLE
--- NOTE | 2024-06-08 10:55 | NUR ---
PATIENT GIVEN PO MEDICATIONS, VITALS CURRENT, QUESTIONS ABOUT MEDICATIONS AND SIDE EFFECTS REVIEWED. ICE WATER PROVIDED. PATIENT WITH 50CC VOID, URINE SENT TO LAB.
[2024-06-08 11:15] LABS: BILIRUBIN, URINE POSITIVE (negative); BLOOD/HGB, URINE NEGATIVE (Negative); KETONE, URINE TRACE (Negative); LEUK ESTERASE, URINE NEGATIVE (negative); NITRITE, URINE NEGATIVE (negative); PH, URINE 5.5 (5-7)
[2024-06-08 11:22] LABS: BACTERIA, URINE RARE /hpf (negative); CASTS, URINE NONE SEEN \\lpf; COLLECTION TYPE, URINE CLEAN CATCH; CRYSTALS, URINE NONE SEEN (0-1+); EPITHELIAL CELLS, URINE SQUAMOUS 4+ /lpf (0-1+); RED BLOOD CELLS, URINE 0-1 /hpf (0-5); REFLEX CULTURE, URINE No (No); WHITE BLOOD CELLS, URINE 0-1 /HPF (0-5)
[2024-06-08] MEDS ORDERED: PHARMACY RENAL DOSE ADJUSTMENT 1 DOSE MISC PO SCH (12:00)
--- NOTE | 2024-06-08 12:24 | NUR ---
PATIENT GIVEN PO GABAPENTIN. CHANNEL GUIDE FOR TV GIVEN. NO OTHER NEEDS AT THIS TIME.
[2024-06-08] MEDS ORDERED: GABAPENTIN 300 MG CAP PO SCH (13:00)
--- NOTE | 2024-06-08 14:00 | EKG ---
[facility] [address] [facility] [place] [address] Signed Atrial fibrillation with rapid ventricular response Left anterior fascicular block Nonspecific ST abnormality Abnormal ECG When compared with ECG of 13-OCT-2021 10:22, Atrial fibrillation has replaced Sinus rhythm Vent. rate has increased BY 64 BPM Confirmed by Wilder Perez MD ([id number]) on 06/08/2024 2:00:42 PM Electronically Signed By: WILDER PEREZ MD 06/08/24 1400 PATIENT NAME: WAGNER OLVERA TRAN NOWAK Electrocardiogram DATE OF : 45 PHYSICIAN: WILDER PEREZ MD REPORT #: [id number] REPORT IS CONFIDENTIAL AND NOT TO BE RELEASED WITHOUT AUTHORIZATION
--- NOTE | 2024-06-08 14:09 | NUR ---
PATIENT IS WORKING WITH [employer]NS, UP TO BATHROOM TO WITH 1PA AND FWW. LINENS CHANGED, PATIENT IS UP TO CHAIR, O2 IS ON AT 2L. PATIENT GIVEN WASH CLOTHES AND WASHED FACE AND HANDS. PATIENT PREFERS TO WAIT FOR HIS HOME SHAVER, RATHER THAN USING OURS.
--- NOTE | 2024-06-08 14:24 | NUR ---
PT NOT AVAILABLE FOR VISIT. PROVIDED PRAYER.
[2024-06-08] MEDS ORDERED: ARTIFICIAL TEARS 15 ML BTL OU PRN (15:00)
[2024-06-08] MEDS ORDERED: WARFARIN PER PHARMACY PROTOCOL PO SCH (16:00)
[2024-06-08] MEDS ORDERED: WARFARIN SOD 5 MG TAB PO SCH (16:00)
--- NOTE | 2024-06-08 16:01 | NUR ---
PATIENT IN BED AT THIS TIME. SINGER SONGWRITER ASSISTED PATIENT IN GETTING TO THE BATHROOM AND THEN BACK TO BED. PATIENT REQUESTED TO SPEAK TO CASE MANAGEMENT AND WANTED TO SPEAK TO THE RN ABOUT MEDICATION, RN HAS BEEN NOTIFIED. CALL LIGHT WITHIN REACH, NO FURTHER NEEDS AT THIS TIME.
--- NOTE | 2024-06-08 17:31 | NUR ---
PATIENT IS SITTING UP IN BED TO EAT DINNER. NO OTHER NEEDS. PATIENT GIVEN NATURAL TEARS EYE DROPS TO USE.
--- NOTE | 2024-06-08 17:32 | NUR ---
PATIENT IS ON ROOM AIR, 90%, GIVEN I/S AND INSTRUCTED ON HOW TO USE.
--- NOTE | 2024-06-08 19:29 | NUR ---
REPORT RECEIVED FROM DAY SHIFT RN. PT LYING IN BED ALERT AND ORIENTED. DENIES NEEDS. WHITE BOARD UPDATED. CALL LIGHT IN REACH.
[2024-06-08] MEDS ORDERED: PRAMIPEXOLE DIHYDROCHLORIDE 1 MG TAB PO SCH (21:00)
[2024-06-08] MEDS ORDERED: SODIUM CHLORIDE 0.9% 1,000 ML IV SCH (21:45)
--- NOTE | 2024-06-08 21:56 | NUR ---
EVENING ASSESSMENT COMPLETE. SCHEDULED MEDS ADMIN PER EMAR. PT DROWSY, RESPONDS TO VOICE AND FOLLOWS COMMANDS. A&O X 3. TELE #[address] HR 60'S. SpO2 LOW 90'S WITH 1L/NC IN PLACE. LUNGS CLEAR. OCCASIONAL LOOSE COUGH NOTED. PT DUE TO VOID. BLADDER SCANNED FOR 300 ML. PT REPORTS HE "ALMOST HAS TO GO" UPDATED. NEW ORDERS FOR IVF RECEIVED. IVF INFUSING WNL. ASSISTED TO REPOSITION IN BED. PT DENIES FURTHER NEEDS. CALL LIGHT IN REACH.
--- NOTE | 2024-06-08 23:21 | NUR ---
CPOX ALARMING. SpO2 88% ON 1L/NC. OXYGEN TITRATED TO 2L/NC. SpO2 92-96%. PT ALERT AND CONVERSIVE AT THIS TIME. PT DENIES NEEDS. CALL LIGHT IN REACH. BED ALARM FOR SAFETY.
[2024-06-09] VITALS (7 sets, daily range): BP systolic 123–164; BP diastolic 77–91
--- NOTE | 2024-06-09 00:45 | NUR ---
PT UP TO BR WITH FWW AND SBA TO VOID APPROX 75 ML YELLOW URINE. BACK TO BED, KASSANDRA WELL. BLADDER SCANNED FOR 330 ML. VS OBTAINED. NO FURTHER NEEDS. CALL LIGHT IN REACH. BED ALARM FOR SAFETY.
--- NOTE | 2024-06-09 03:15 | NUR ---
PT RESTING IN BED WITH EYES CLOSED. RESPIRATIONS EVEN. SpO2 93% ON 2L/NC. HR HIGH 40'S TO MID 50'S. BED ALARM FOR SAFETY. CALL LIGHT IN REACH.
[2024-06-09 05:56] LABS: BASOPHILS 0.1 % (0-2); EOSINOPHILS 0.8 % (0-6); HEMATOCRIT 43.6 % (35.0-50.0); HEMOGLOBIN 14.3 g/dL (12.0-18.0); LYMPHOCYTES 3.2 % (24-44); MCH 34.1 (27-36); MCHC 32.8 g/dl (30-36); MCV 103.9 fl (81-99); MONOCYTES 4.9 % (0-12); PLATELET COUNT 126 K/uL (140-440); RBC 4.19 M/ul (4.3-5.7); RDW 14.6 (10.5-15.0)
--- NOTE | 2024-06-09 05:56 | NUR ---
CALL LIGHT ANSWERED. IN TO ASSIST PT USE THE URINAL TO VOID. PT INCONTINENT OF SMALL AMOUNT OF URINE WELL. ASSISTED WITH GEMINI CARE. BLADDER SCANNED FOR 330 ML. VS AND I&O OBTAINED. LOOSE COUGH NOTED. SCATTERED WHEEZE AUSCULTATED THROUGHOUT. NEB TX ADMIN PER RT. LAB IN ROOM FOR MORNING DRAW. PT DENIES FURTHER NEEDS. CALL LIGHT IN REACH. BED ALARM FOR SAFETY.
[2024-06-09 06:10] LABS: ANION GAP 13.7 (7-21); BUN/CREATININE RATIO 20.66 (6.0-28.6); CALCIUM 8.2 mg/dL (8.5-10.1); CREATININE, SERUM 1.21 mg/dL (0.70-1.30); MAGNESIUM 2.2 mg/dL (1.8-2.4); POTASSIUM 3.7 mmol/L (3.5-5.1)
[2024-06-09 06:14] LABS: INR 1.58 (0.80-1.30)
--- NOTE | 2024-06-09 07:04 | NUR ---
pt sitting in bed looking at his phone. call light within reach.
--- NOTE | 2024-06-09 08:05 | NUR ---
PATIENT IN BED AT THIS TIME. CALL LIGHT WITHIN REACH, NO FURTHER NEEDS AT THIS TIME.
--- NOTE | 2024-06-09 08:18 | NUR ---
PT RESTING IN BED, NO REQUESTS AT THIS TIME. MEDS GIVEN. CALL LIGHT WITHIN REACH.
--- NOTE | 2024-06-09 09:15 | NUR ---
This morning I find Kevin up in bed and eating breakfast, t.v. is on and patient is awake, alert, and oriented to person, place and time. I do know Mr Aleman from the community and he greets me by name. He feels that the nurse have done a "good job" providing his care while at the hospital, and he is in agreement to his discharge plan to return to home with his spouse upon discharge. Mr Aleman readily signs his IMM letter, and has no questions or reservations about his discharge plan sharing that he is ready to go home when his doctor says it is o.k. for him to return home. No further questions at this time. Letter signed, and copy of letter given to Mr. Aleman.
[2024-06-09] MEDS ORDERED: OSELTAMIVIR PHOSPHATE 30 MG CAP PO SCH (09:21)
--- NOTE | 2024-06-09 09:30 | NUR ---
Spoke with Kevin. He cont. to state he will be moving into the main building next month with his . He is feeling better, has concerns to go home be able to get to the dinning area in the main building. Concerned about getting in and out of his car. We also discussed a shower chair as I was notified he does not have one by OT. Pt states he does have one, it is in the garage. He is not sure if he wants to use it. It wants to have [facility] on dc for PT/OT. He denies other needs. Would like me or the hospitalist to write a letter asking [employer] to make repair/upgrade in his dulplex he has requested. I let him know that is private business and I cannot force them to do anything. I suggested he ask HH to complete a safety evaluation when they see him. He can provide this to [facility]. No other needs at this time.
--- NOTE | 2024-06-09 09:45 | NUR ---
physical therapy in working with pt.
--- NOTE | 2024-06-09 11:15 | NUR ---
OT IN TO WORK WITH PT
--- NOTE | 2024-06-09 11:29 | NUR ---
PT SITTING IN CHAIR WITH CALL LIGHT WITHIN REACH. O2 SAT ON RA IS 91%.
--- NOTE | 2024-06-09 12:20 | NUR ---
PT SITTING UP IN CHAIR EATING LUNCH, CALL LIGHT WITHIN REACH. NO REQUESTS AT THIS TIME.
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
--- NOTE | 2024-06-09 14:11 | NUR ---
PT NOT AVAILABLE FOR VISIT. PROVIDED PRAYER.
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
[2024-06-09] MEDS ORDERED: MAGNESIUM HYDROXIDE/AL HYDROX 30 ML CUP PO PRN (14:15)
[2024-06-09] MEDS ORDERED: OSELTAMIVIR PHO30 MG PO (15:05)
[2024-06-09] MEDS ORDERED: WARFARIN SOD 5 MG TAB PO SCH (16:00)
--- NOTE | 2024-06-09 16:28 | NUR ---
pt given night time dose of tamiflu per pharmacy as pt has hard time going to pharmacy this late.
[2024-06-10] MEDS ORDERED: OSELTAMIVIR PHOSPHATE 30 MG CAP PO SCH (09:00)
== END 2024-06-09 16:25 | disposition home or self-care (01) | DRG 194 ==
LOC: ED 20:20 → CCU 23:33 → MS 23:33
PROVIDERS: Family Medicine; ADMIT Student in an Organized Health Care Education/Training Program; ATTEND Student in an Organized Health Care Education/Training Program
DX: J10.1 Influenza due to other identified influenza virus with other respiratory manifestations (principal); N17.9 Acute kidney failure, unspecified; I48.91 Unspecified atrial fibrillation; I10 Essential (primary) hypertension; E78.5 Hyperlipidemia, unspecified; Z66 Do not resuscitate; F10.90 Alcohol use, unspecified, uncomplicated; N40.0 Benign prostatic hyperplasia without lower urinary tract symptoms; F39 Unspecified mood [affective] disorder; Z86.73 Personal history of transient ischemic attack (TIA), and cerebral infarction without residual deficits; Z79.01 Long term (current) use of anticoagulants; Z87.891 Personal history of nicotine dependence; Z98.890 Other specified postprocedural states; Z79.899 Other long term (current) drug therapy; Z79.2 Long term (current) use of antibiotics
CPT/HCPCS: 36415; 51798; 71045; 80048; 80053; 81001; 83735; 85025; 85610; 87502; 93005; 93010; 94640; 94644; 94667; 94668; 94762; 96365; 96375; 96376; 97161; 97165; 97530; 97535; 99285-25; A9270; J2405; J2919; J3475; J3480; J7030; J7121; U0002

== ENCOUNTER 2024-09-14 21:28 | Observation (INO) | payer MEDICARE, OTHER ==
[~2024-09-14] VITALS: Ht 167.6 cm; Wt 64.0 kg
[~2024-09-14 21:28] MED LIST changes: +AMOX TR-K CLV1 EAC1 PO; +OSELTAMIVIR PHO30 MG PO; +VITAMIN D325 MCG PO
[2024-09-14 21:44] LABS: BASOPHILS 1.2 % (0-2); EOSINOPHILS 2.2 % (0-6); HEMATOCRIT 48.4 % (35.0-50.0); HEMOGLOBIN 16.1 g/dL (12.0-18.0); LYMPHOCYTES 13.7 % (24-44); MCH 34.8 (27-36); MCHC 33.3 g/dl (30-36); MCV 104.6 fl (81-99); MONOCYTES 10.3 % (0-12); NEUTROPHILS 72.6 % (39-80); PLATELET COUNT 176 K/uL (140-440); RBC 4.63 M/ul (4.3-5.7); RDW 15.4 (10.5-15.0)
[2024-09-14 21:57] LABS: INR 1.71 (0.80-1.30)
[2024-09-14 21:59] LABS: PARTIAL THROMBOPLASTIN TIME 31.8 Sec (22.9-41.3)
[2024-09-14 22:01] LABS: ALBUMIN 3.1 g/dL (3.4-5.0); ALBUMIN/GLOBULIN RATIO 0.97 (1.1-2.4); ALCOHOL, MEDICAL <3 ng/dL (<3); ALKALINE PHOSPHATASE 116 U/L (46-116); ALT (SGPT) 18 U/L (14-59); ANION GAP 11.3 (7-21); AST (SGOT) 11 U/L (15-37); BILIRUBIN, TOTAL 0.4 ng/dL (0.2-1.0); BUN/CREATININE RATIO 6.89 (6.0-28.6); CALCIUM 8.3 mg/dL (8.5-10.1); CARBON DIOXIDE 28 mmol/L (21-32); CHLORIDE 106 mmol/L (98-107); CREATININE, SERUM 1.16 mg/dL (0.70-1.30); GLOMERULAR FILTRATION RATE,EST 64 mL/min (>60); MAGNESIUM 1.9 mg/dL (1.8-2.4); POTASSIUM 4.3 mmol/L (3.5-5.1); PROTEIN, TOTAL 6.3 g/dL (6.4-8.2); UREA NITROGEN 8 mg/dL (7-18)
[2024-09-14 22:24] LABS: ABO O; ANTIBODY SCREEN NEGATIVE; RH POSITIVE
[2024-09-14] MEDS ORDERED: GABAPENTIN 300 MG CAP PO ONE (23:45)
[2024-09-15] VITALS (11 sets, daily range): BP systolic 107–154; BP diastolic 69–93
[2024-09-15] MEDS ORDERED: ACETAMINOPHEN 325 MG TAB PO PRN (00:15)
[2024-09-15] MEDS ORDERED: GABAPENTIN 300 MG CAP PO PRN (00:15)
[2024-09-15] MEDS ORDERED: OXYCODONE HCL 5 MG TAB PO PRN (00:15)
[2024-09-15] MEDS ORDERED: ondansetron HCL 4 MG/2 ML VIAL IV PRN ×2 (00:15→10:30)
--- NOTE | 2024-09-15 01:00 | NUR ---
pt ARRIEVED TO THE FLOOR VIA STRETCHER. pt TRANSFERED TO THE BED WITH THE SLIDE SHEET. ASSESSMENT AND VITAL SIGNS DONE. pt STATES HIS PAIN IS TOLERABLE AT THIS TIME. SNACK PROVIDED. WATER REFRESHED. URINAL PROVIDED. pt DENIES ANY OTHER NEEDS AT THIS TIME. CALL LIGHT WITHIN REACH.
--- NOTE | 2024-09-15 03:17 | NUR ---
pt RESTING IN THE BED WITH EYES CLOSED. RR EVEN AND UNLBORED. CALL LIGHT WITHIN REACH.
--- NOTE | 2024-09-15 05:05 | NUR ---
ASSESSMENT AND VITAL SIGNS DONE. REQUESTED TO USE THE URINAL. URINE SAMPLE COLLECTED. pt PLACED ON 2LNC DUE pt DESATTING INTO THE MID 80'S WHILE SLEEPING. pt DENIES PAIN AT THIS TIME. pt DENIES ANY OTHER NEEDS AT THIS TIME. CALL LIGHT WITHIN REACH.
[2024-09-15 05:09] LABS: BILIRUBIN, URINE NEGATIVE (negative); BLOOD/HGB, URINE NEGATIVE (Negative); KETONE, URINE NEGATIVE (Negative); LEUK ESTERASE, URINE NEGATIVE (negative); NITRITE, URINE NEGATIVE (negative)
[2024-09-15 05:24] LABS: AMPHETAMINES, URINE NEGATIVE (NEGATIVE); BARBITURATES, URINE NEGATIVE (NEGATIVE); BENZODIAZEPINE, URINE NEGATIVE (NEGATIVE); BUPRENORPHINE, URINE NEGATIVE (NEGATIVE); CANNABINOID, URINE POSITIVE (NEGATIVE); COCAINE, URINE NEGATIVE (NEGATIVE); ECSTASY, URINE NEGATIVE (NEGATIVE); FENTANYL, URINE NEGATIVE (NEGATIVE); METHADONE, URINE NEGATIVE (NEGATIVE); OPIATES, URINE NEGATIVE (NEGATIVE); OXYCODONE, URINE NEGATIVE (NEGATIVE); PHENCYCLIDINE, URINE NEGATIVE (NEGATIVE)
[2024-09-15 05:53] LABS: BASOPHILS 0.4 % (0-2); HEMATOCRIT 45.5 % (35.0-50.0); HEMOGLOBIN 15.6 g/dL (12.0-18.0); LYMPHOCYTES 6.5 % (24-44); MCH 35.4 (27-36); MCHC 34.2 g/dl (30-36); MCV 103.6 fl (81-99); MONOCYTES 9.2 % (0-12); NEUTROPHILS 82.9 % (39-80); PLATELET COUNT 140 K/uL (140-440); RBC 4.39 M/ul (4.3-5.7); RDW 15.5 (10.5-15.0)
[2024-09-15 06:12] LABS: ALBUMIN 2.7 g/dL (3.4-5.0); ALBUMIN/GLOBULIN RATIO 0.82 (1.1-2.4); ANION GAP 10.2 (7-21); BILIRUBIN, TOTAL 0.8 ng/dL (0.2-1.0); BUN/CREATININE RATIO 9.64 (6.0-28.6); CALCIUM 8.5 mg/dL (8.5-10.1); CREATININE, SERUM 1.14 mg/dL (0.70-1.30); POTASSIUM 4.2 mmol/L (3.5-5.1)
--- NOTE | 2024-09-15 07:00 | NUR ---
REPORT RECEIVED FROM UTILITY LOCATOR RN MAEVE. PATIENT IS SITTING UPRIGHT IN BED AND SPEAKING ON THE PHONE. LIGHTS IN THE ROOM ARE ON. CALL LIGHT AND PERSONAL BELONGINGS ARE WITHIN REACH.
--- NOTE | 2024-09-15 07:55 | NUR ---
PATIENT ASSESSMENT COMPLETE AT THIS TIME. PATIENT IS ALERT AND ORIENTED TIMES FOUR. PATIENT STATES PAIN IS A "2/10 WHEN SITTING BUT SPIKES WITH MOVING" AND "IS HARD TO TURN IN BED". PATIENT IS NOT REQUESTING ANY PAIN INTERVENTION AT THIS TIME. PATIENT IS ON ROOM AIR WITH THE CPOX AT BEDSIDE. LUNG SOUNDS ARE CLEAR IN ALL LUNG DUNHAM BILATERALLY. CARDIAC WITH NORMAL S1 AND S2 ON AUSCULTATION. RADIAL AND PEDAL PULSES ARE STRONG BILATERALLY. CAPILLARY REFILL IS LESS THAN 3 SECONDS IN THE UPPER AND LOWER EXTREMITIES. PATIENT IS ON TELEMETRY NUMBER 8 AND IS NORMAL SINUS RHYTHM. PATIENT IS ON A REGULAR DIET AND BOWEL TONES ARE ACTIVE IN ALL FOUR QUADRANTS. BLE WEAKNESS NOTED. SENSATION INTACT WITH NO COMPLAINTS OF NUMBNESS OR TINGLING. IV IN THE LAC FLUSHED WITH 10 ML NORMAL SALINE AND IS SALINE LOCKED. IV DRESSING IS CLEAN, DRY, AND INTACT. SKIN WITH SCATTERED BRUISING NOTED AND DRY/FLAKEY SKIN ON THE BILATERAL FEET/ANKLES. URINAL AT THE BEDSIDE. PATIENT STATED HE IS HUNGRY AND PATIENT EDUCATED BREAKFAST COMES AROUND 0800. PATIENT EXPRESSED UNDERSTANDING AND HAS NO FURTHER NEEDS AT THIS TIME. CALL LIGHT AND PERSONAL BELONGINGS ARE WITHIN REACH.
--- NOTE | 2024-09-15 08:16 | NUR ---
Patient resting in bed watching TV. No cares were requested.
--- NOTE | 2024-09-15 08:20 | NUR ---
PATIENT IS LYING IN BED WITH EYES CLOSED AND RESPIRATIONS ARE EVEN AND UNLABORED. CPOX AT BEDSIDE. CALL LIGHT AND PERSONAL BELONGINGS ARE WITHIN REACH.
--- NOTE | 2024-09-15 09:50 | NUR ---
PATIENT IS SITTING UPRIGHT IN BED AND EATING BREAKFAST. TV ON. CALL LIGHT AND PERSONAL BELONGINGS ARE WITHIN REACH.
[2024-09-15] MEDS ORDERED: bisacodyL 10 MG SUPP PR PRN (10:30)
[2024-09-15] MEDS ORDERED: LOSARTAN POTASSIUM 25 MG TAB PO SCH (10:30)
[2024-09-15] MEDS ORDERED: FINASTERIDE 5 MG TAB PO SCH (10:30)
[2024-09-15] MEDS ORDERED: CITALOPRAM HYDROBROMIDE 20 MG TAB PO SCH (10:35)
[2024-09-15] MEDS ORDERED: CYANOCOBALAMIN 1,000 MCG TAB PO SCH (10:36)
[2024-09-15] MEDS ORDERED: GABAPENTIN 300 MG CAP PO SCH (10:37)
[2024-09-15] MEDS ORDERED: LORazepam 2 MG/ML VIAL IV/IM PRN (10:45)
[2024-09-15] MEDS ORDERED: HYDROCODONE/ACETA 5/325 TAB PO PRN (10:45)
[2024-09-15] MEDS ORDERED: THIAMINE HCL 100 MG,FOLIC ACID 1 MG,MULTIVITAMINS 10 ML in SODIUM CHLORIDE 0.9% 1,000 ML IV ONE (10:45)
--- NOTE | 2024-09-15 11:45 | NUR ---
pt RESTING IN THE BED WITH EYES CLOSED. RR EVEN AND UNLABORED. pt SATTING AT 93%. NO NEEDS AT THIS TIME. CALL LIGHT WITHIN REACH. SCD'S ON.
--- NOTE | 2024-09-15 11:48 | NUR ---
MEDICATIONS ADMINISTERED PER THE EMAR. PRN PAIN MEDICATION ADMINISTERED PER THE EMAR FOR PAIN RATED 5/10 IN THE RIGHT SIDE OF HIP. PATIENT IS ON 2 L NASAL CANNULA WITH THE CPOX AT BEDSIDE. PATIENT GIVEN PAPER, PEN, AND FRESH TEA PER PATIENT REQUEST. PATIENT STATED NO FURTHER NEEDS AT THIS TIME. CALL LIGHT AND PERSONAL BELONGINGS ARE WITHIN REACH.
[2024-09-15] MEDS ORDERED: PHARMACY RENAL DOSE ADJUSTMENT 1 DOSE MISC PO SCH (12:00)
--- NOTE | 2024-09-15 13:10 | NUR ---
MED REC COMPLETE
[2024-09-15] MEDS ORDERED: HYDROmorphone HCL 1 MG/ML SYR IV PRN (13:30)
--- NOTE | 2024-09-15 13:39 | NUR ---
PATIENT IS SITTING UPRIGHT IN BED WITH HOB ELEVATED. PATIENT IS WATCHING TV. CPOX AT THE BEDSIDE. MARY ALEXANDRE IS IN THE ROOM AT THIS TIME. CALL LIGHT AND PERSONAL BELONGINGS ARE WITHIN REACH.
--- NOTE | 2024-09-15 14:40 | NUR ---
PATIENT ORTHOSTATIC VITAL SIGNS COMPLETE. IV SITE FLUSHED WITH 10 ML NORMAL SALINE. IV DRESSING IS CLEAN, DRY, AND INTACT. PRN DILAUDID ADMINISTERED PER THE EMAR FOR PAIN 2/10 IN THE RIGHT HIP AND PRIOR TO WORKING WITH PT. AFTER WORKING WITH PT PATIENT REPORT NO PAIN. PATIENT CONNECTED TO THE CPOX AT BEDSIDE. PATIENT TV ON. PATIENT STATED NO FURTHER NEEDS AT THIS TIME. CALL LIGHT AND PERSONAL BELONGINGS ARE WITHIN REACH.
--- NOTE | 2024-09-15 15:14 | NUR ---
MD NOTIFIED OF ORTHOSTATIC VITAL SIGNS TAKEN. MD NOTIFIED OF AYAAN WRAY ROUNDING ON PATIENT. MD NOTIFIED OF PATIENT TOE-TOUCH, WEIGHT-BEARING STATUS. NO NEW ORDERS AT THIS TIME.
--- NOTE | 2024-09-15 16:40 | NUR ---
PATIENT IS SITTING UPRIGHT IN BED AND WATCHING TV. PATIENT WITH NO COMPLAINTS OF PAIN AT THIS TIME. CPOX AT BEDSIDE. PATIENT REMAINS ON 2 L NC. PATIENT GIVEN A CUP OF TEA PER REQUEST. PATIENT STATED NO FURTHER NEEDS AT THIS TIME. CALL LIGHT AND PERSONAL BELONGINGS ARE WITHIN REACH.
[2024-09-15] MEDS ORDERED: ATORVASTATIN 40 MG TAB PO SCH (17:00)
--- NOTE | 2024-09-15 17:23 | NUR ---
PATIENT 1700 LIPITOR ADMINISTERED PER THE EMAR. PATIENT IS ALERT AND ORIENTED TIMES FOUR. IV FLUSHED WITH 10 ML NORMAL SALINE AND IS SALINE LOCKED. IV DRESSING IS CLEAN, DRY, AND INTACT. PATIENT WITH NO COMPLAINTS OF PAIN WHEN ASKED BY RN. SCDS PLACED ON THE PATIENT. PATIENT STATED NO FURTHER NEEDS AT THIS TIME. CALL LIGHT AND PERSONAL BELONGINGS ARE WITHIN REACH.
--- NOTE | 2024-09-15 17:30 | NUR ---
PATIENT BOOSTED UP IN BED AND REPOSITIONED WITH LIGIA JULIAN. THIS RN ASSISTED PATIENT WITH MEAL TRAY. FRESH CUP OF ICE WATER IS AT THE BEDSIDE. PATIENT STATED NO FURTHER NEEDS AT THIS TIME. CALL LIGHT AND PERSONAL BELONGINGS ARE WITHIN REACH.
--- NOTE | 2024-09-15 19:10 | NUR ---
REPORT RECEIVED FROM LAKISHA STRONG. pt RESTING IN THE BED. BOARD UPDATED. pt DENIES ANY OTHER NEEDS AT THIS TIME. CALL LIGHT WITHI REACH.
--- NOTE | 2024-09-15 20:36 | EKG ---
[facility] [address] [facility] [place] [address] Signed Sinus rhythm with frequent premature ventricular complexes Otherwise normal ECG When compared with ECG of 08-JUN-2024 07:30, premature ventricular complexes are now present Confirmed by Cristobal De La Cruz DO ([id number]) on 09/15/2024 8:36:20 PM Electronically Signed By: CRISTOBAL DE LA CRUZ DO 09/15/242035 PATIENT NAME: CAROLA OLVREAJACKSON MAYFIELD Electrocardiogram DATE OF : 45 PHYSICIAN: CRISTOBAL DE LA CRUZ DO REPORT #: [id number] REPORT IS CONFIDENTIAL AND NOT TO BE RELEASED WITHOUT AUTHORIZATION
[2024-09-15] MEDS ORDERED: MELATONIN 3 MG TAB PO PRN (21:00)
[2024-09-15] MEDS ORDERED: PRAMIPEXOLE DIHYDROCHLORIDE 1 MG TAB PO SCH (21:00)
--- NOTE | 2024-09-15 21:02 | NUR ---
MANAGER EMPLOYEE BENEFITS OBTAINED VITALS AND I&O. PT URINAL EMPTIED. PT STATES NO FURTHER NEEDS AT THIS TIME. CALL LIGHT WITHIN REACH.
--- NOTE | 2024-09-15 21:30 | NUR ---
ASSESSMENT AND VITAL SIGNS DONE. pt RESTING IN THE BED. pt DENIES ANY PAIN AT THIS TIME. SCHEDULED MEDS ADMINISTERED AT THIS TIME. pt ON 2LNC AND SATTING AT 93%. CPOX ON. pt DENIES ANY OTHER NEEDS AT THIS TIME. CALL LIGHT WITHIN REACH.
[2024-09-15] MEDS ORDERED: ALBUTEROL SULFATE 0.083% 3 ML VIAL INH PRN (21:45)
--- NOTE | 2024-09-15 23:45 | NUR ---
pt RESTING IN THE BED WITH EYES CLOSED. RR EVEN AND UNLABORED. pt SATTING AT 93% ON 2LNC. NO NEEDS AT THIS TIME. CALL LIGHT WITHIN REACH.
[2024-09-16] VITALS (12 sets, daily range): BP systolic 103–153; BP diastolic 60–89
--- NOTE | 2024-09-16 02:24 | NUR ---
IN RM FOR VITAL SIGNS. pt DENIES ANY PAIN AT THIS TIME. NO OTHER NEEDS AT THIS TIME. CALL LIGHT WITHIN REACH.
--- NOTE | 2024-09-16 03:58 | NUR ---
pt CALLED TO REQUESTED PRN PAIN MEDS. pt C/O 01/22 PAIN. PRN PAIN MEDS ADMINISTERED. pt DENIES ANY OTHER NEEDS AT THIS TIME. CALL LIGHT WITHIN REACH.
[2024-09-16 05:53] LABS: BASOPHILS 3.2 % (0-2); EOSINOPHILS 5.3 % (0-6); HEMATOCRIT 44.6 % (35.0-50.0); LYMPHOCYTES 9.9 % (24-44); MCH 35.4 (27-36); MCHC 33.8 g/dl (30-36); MONOCYTES 6.6 % (0-12); PLATELET COUNT 134 K/uL (140-440); RBC 4.25 M/ul (4.3-5.7); RDW 15.3 (10.5-15.0)
--- NOTE | 2024-09-16 06:00 | NUR ---
pt RESTING IN THE BED. pt DENIES ANY MORE PAIN AT THIS TIME. pt DENIES ANY OTHER NEEDS AT THIS TIME. CALL LIGHT WITHIN REACH.
[2024-09-16 06:10] LABS: BUN/CREATININE RATIO 11.92 (6.0-28.6); CREATININE, SERUM 1.09 mg/dL (0.70-1.30); MAGNESIUM 1.9 mg/dL (1.8-2.4); PHOSPHORUS, INORGANIC 3.3 mg/dL (2.5-4.9)
--- NOTE | 2024-09-16 07:00 | NUR ---
REPORT RECEIVED FROM PROFESSOR OF RELIGIOUS STUDIES LIGIA MCFARLANE. PATIENT IS ON LYING IN BED WITH EYES CLOSED AND RESPIRATIONS ARE EVEN AND UNLABORED. PATIENT IS ON 2 L NC AND THE CPOX IS AT BEDSIDE. CALL LIGHT AND PERSONAL BELONGINGS ARE WITHIN REACH.
[2024-09-16] MEDS ORDERED: THIAMINE HCL 100 MG TAB PO SCH (08:00)
--- NOTE | 2024-09-16 08:24 | NUR ---
UR CLNICAL REVIEW: 2MN CHRIS, MEETS OBS FOR PUBIC RAMI FRACTURE MEDICARE OBS 09/15/2024 @ 0007 ORDER MATCHES REG NO AUTH REQUIRED PER MEDICARE RULES DC TO HOME WHEN MEDICALLY CLEARED 09/17/2024
--- NOTE | 2024-09-16 08:55 | NUR ---
0900 MEDICATIONS ADMINISTERED PER THE EMAR. FULL ASSESSMENT COMPLETE AND DOCUMENTED IN THE CHART. PATIENT IS ALERT AND ORIENTED TIMES FOUR. PATIENT USES WALKER AT BASELINE. URINAL AT THE BEDSIDE. SCDS IN PLACE. CARDIAC WITH NORMAL S1 AND S2 ON AUSCULTATION. RADIAL AND PEDAL PULSES ARE STRONG BILATERALLY. CAPILLARY REFILL IS LESS THAN 3 SECONDS IN THE UPPER AND LOWER EXTREMITIES BILATERALLY. BLE WITH GENERALIZED WEAKNESS. IV IS SALINE LCOKED. IV DRESSING IS CLEAN, DRY, AND INTACT. PATIENT IS ON A REGULAR DIET AND BOWEL TONES ARE ACTIVE IN ALL FOUR QUADRANTS. PATIENT IS ON 2 L NC WITH THE CPOX AT BEDSIDE. LUNG SOUNDS ARE CLEAR IN ALL LUNG DUNHAM BILATERALLY. PATIENT RATAED PAIN A 2/10 AND IS NOT REQUESTING ANY PAIN INTERVENTION AT THIS TIME. PATIENT SKIN WITH SCATTERED BRUISING AND DRY/FLAKEY SKIN ON THE BILATERAL FEET/ANKLES. PATIENT WITH FRESH CUP OF ICE WATER AT THE BEDSIDE AND BREAKFAST TRAY REMOVED. PATIENT STATED NO FURTHER NEEDS AT THIS TIME. CALL LIGHT AND PERSONAL BELONGINGS ARE WITHIN REACH.
--- NOTE | 2024-09-16 09:00 | NUR ---
Spoke with Kevin. He lives in a Duplex with his at [facility]. He is painful with any ambulation and is requiring 2 person assist. is unable to provide care for this pt. Pt has been at [facility] in the past and would like to return. I called Lennie at [facility] and faxed the chart. She will call me after Dr. Leonardo reviews.
--- NOTE | 2024-09-16 09:34 | NUR ---
PT IS IN THE ROOM AND WORKING WITH THE PATIENT AT THIS TIME.
--- NOTE | 2024-09-16 10:27 | NUR ---
PATIENT IS SITTING UPRIGHT IN THE CHAIR AND WITH BLE ELEVATED. RT IS IN THE ROOM AT THIS TIME. CPOX AT THE BEDSIDE. CALL LIGHT AND PERSONAL BELONGINGS ARE WITHIN REACH.
--- NOTE | 2024-09-16 10:29 | NUR ---
Worked with PT/OT, sitting in chair once done. Patient requested hot tea to drink. RT in room doing a breathing treatment.
--- NOTE | 2024-09-16 10:29 | NUR ---
RA TRIAL 86% SpO2. SMOKED FOR 30 YEARS, POSSIBLE COPD WHEEZES ARE NOTED. WILL START ON RESPIRATORY PROTOCOLS.
--- NOTE | 2024-09-16 11:38 | NUR ---
PATIENT IS LYING IN THE CHAIR WITH BILATERAL LOWER EXTREMITIES ELEVATED. PATIENT WITH NC IN PLACE WITH THE CPOX AT BEDSIDE. TV IS ON. CALL LIGHT AND PERSONAL BELONGINGS ARE WITHIN REACH.
[2024-09-16] MEDS ORDERED: CEFTRIAXONE/SODIUM CHLORIDE 1 GM/100 ML PIGGYBACK IV SCH (12:14)
[2024-09-16] MEDS ORDERED: AZITHROMYCIN 250 MG TAB PO SCH (12:14)
[2024-09-16] MEDS ORDERED: predniSONE 20 MG TAB PO SCH (12:14)
--- NOTE | 2024-09-16 12:22 | NUR ---
PATIENT IS SITTING UPRIGHT IN THE CHAIR WITH BLE ELEVATED. PATIENT IS EATING LUNCH. NC IN PLACE WITH THE CPOX AT BEDSIDE. TV IS ON. CALL LIGHT AND PERSONAL BELONGINGS ARE WITHIN REACH.
--- NOTE | 2024-09-16 12:23 | NUR ---
Lunch tray brought in. Call light picked up and returned to patient.
--- NOTE | 2024-09-16 14:02 | NUR ---
PATIENT IS SITTING UPRIGHT IN THE CHAIR. PATIENT IS ON 2 LITERS NC WITH THE CPOX AT BEDSIDE. PATIENT WITH NO COMPLAINTS OF PAIN WHEN ASKED BY RN. PATIENT IS WATCHING TV. PATIENT STATED NO FURTHER NEEDS AT THIS TIME. CALL LIGHT AND PERSONAL BELONGINGS ARE WITHIN REACH.
--- NOTE | 2024-09-16 15:09 | NUR ---
PATIENT IS LYING IN THE CHAIR WITH BLE ELEVATED. PATIENT WITH NO COMPLAINTS OF PAIN. PATIENT IS REQUESTING TO MOVE BACK TO BED. PATIENT IV FLUSHED WITH 10 ML NORMAL SALINE AND IS NOW SALINE LOCKED. IV DRESSING IS CLEAN, DRY, AND INTACT. IV PUMP CLEARED OF INTAKE FLUIDS. PATIENT WITH AND GRAND-DAUGHTER IN THE ROOM. PATIENT STATED NO FURTHER NEEDS AT THIS TIME. CALL LIGHT AND PERSONAL BELONGINGS ARE WITHIN REACH.
--- NOTE | 2024-09-16 15:22 | NUR ---
NOtified by Lennie they can accept this pt tomorrow early. Pt will need to be there by 0830 [address] the DrGomez will be leaving town. I called the son and he states he will be here at 7 am to pick this pt up. Updated Kevin. He is under the impressiong he is staying. WE discussed his OBS status and he does not qualify for an IP admission. I cannot send him to a SNF. He wants to speak with Dr. Sanchez and I notified the Dr. I returned later and pt willing to go the IP rehab.
[2024-09-16] MEDS ORDERED: ALBUTEROL/IPRATROPIUM 3 ML NEB INH SCH (16:00)
--- NOTE | 2024-09-16 16:30 | NUR ---
PATIENT ASSISTED BACK TO BED WITH THE SERA-STEADY. PATIENT TOELRATED WELL. PATIENT IS REQUESTING PAIN MEDICATION FOR PAIN RATED 2/10 WHILE LYING IN BED. PRN NORCO ADMINISTERED. 1700 LIPITOR ALSO ADMINISTERED AT THIS TIME. PATIENT SON IS VISITING. PATIENT STATED NO FURTHER NEEDS AT THIS TIME. CALL LIGHT AND PERSONAL BELONGINGS ARE WITHIN REACH.
--- NOTE | 2024-09-16 17:54 | NUR ---
PATIENT DINNER TRAY REMOVED AT THIS TIME. FRESH CUP OF ICE WATER PROVIDED. FAN TURNED ON DUE TO PATIENT HAVING "A HOT FLASH". PATIENT STATED NO FURTHER NEEDS AT THIS TIME. CALL LIGHT AND PERSONAL BELONGINGS ARE WITHIN REACH.
--- NOTE | 2024-09-16 18:35 | NUR ---
PATIENT IS SITTING UPRIGHT IN BED AND SPEAKING WITH A VISITOR AT THE BEDSIDE, TV IS ON. CALL LIGHT AND PERSONAL BELONGINGS ARE WITHIN REACH.
--- NOTE | 2024-09-16 19:30 | NUR ---
Received report from LIGIA Pino. Pt resting in bed w/ visitors at bedside. Denies needs at this time.
--- NOTE | 2024-09-16 20:30 | NUR ---
PT RESTING IN BED, IN GOOD SPIRITS. REPORTS RIGHT GROIN PAIN, 10/25. MEDICATED W/ PRN NORCO PER EMAR. A&OX4. LSC. 1L O2 IN PLACE, N/C. CPOX AT BEDSIDE. HRR. BTA. SL LFA. 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 SCD'S IN PLACE. URINAL AT BEDSIDE. PT ATE 100% OF SNACK. CALL LIGHT WITHIN REACH.
[2024-09-16] MEDS ORDERED: APIXABAN 5 MG TAB PO SCH (21:00)
--- NOTE | 2024-09-16 22:31 | NUR ---
PT SLEEPING SOUNDLY. APPEARS COMFORTABLE. CALL LIGHT WITHIN REACH.
--- NOTE | 2024-09-17 00:55 | NUR ---
PT SLEEPING SOUNDLY, APPEARS COMFORTABLE.
--- NOTE | 2024-09-17 04:00 | NUR ---
Pt sleeping soundly. Appears comfortable. CIWA score 0.
--- NOTE | 2024-09-17 04:34 | NUR ---
PHOTOCOPYING MACHINE OPERATOR GAVE PT HALF A CUP OF TEA.
--- NOTE | 2024-09-17 04:59 | NUR ---
Dx: Right pelvic fx. Pt to leave 0700 on 09/17 to [facility]. Son to transport. 1L O2 in place. CPOX. SCD's in place. TTWB, pt observes well. Using quinn lopez for transfers. CIWA's negative.
[2024-09-17 05:27] LABS: BASOPHILS 0.3 % (0-2); EOSINOPHILS 0.3 % (0-6); HEMATOCRIT 43.5 % (35.0-50.0); HEMOGLOBIN 14.7 g/dL (12.0-18.0); LYMPHOCYTES 4.1 % (24-44); MCH 34.9 (27-36); MCHC 33.8 g/dl (30-36); MCV 103.2 fl (81-99); MONOCYTES 5.1 % (0-12); NEUTROPHILS 90.2 % (39-80); PLATELET COUNT 137 K/uL (140-440); RBC 4.22 M/ul (4.3-5.7); RDW 15.3 (10.5-15.0)
[2024-09-17 05:32] VITALS: BP 150/63
--- NOTE | 2024-09-17 05:34 | NUR ---
DRILL PRESS OPERATOR NUMERICAL CONTROL OBTAINED VITALS AND I&O. PT STATES NO FURTHER NEEDS AT THIS TIME. CALL LIGHT VAN GAMBOA.
[2024-09-17 05:37] LABS: BUN/CREATININE RATIO 13.2 (6.0-28.6); CALCIUM 8.2 mg/dL (8.5-10.1); CREATININE, SERUM 1.06 mg/dL (0.70-1.30); MAGNESIUM 1.9 mg/dL (1.8-2.4)
--- NOTE | 2024-09-17 06:02 | NUR ---
PT AWAKE, REQUESTING BREAKFAST BEFORE D/C. PT PROVIDED ENSURE HEALTH SHAKE AND HOT APPLE CIDER. DENIES PAIN AT THIS TIME. CMS INTACT.
[2024-09-17 06:12] VITALS: BP 150/63
--- NOTE | 2024-09-17 06:35 | NUR ---
Pt pre-med w/ PRN Leonard for upcoming transfer to [facility]. Currently rates pain 0/10.
[2024-09-17] MEDS ORDERED: CEFTRIAXONE1 G1 IV (06:44)
[2024-09-17] MEDS ORDERED: IPRAT-ALBUT 0.5-3 ML INH (06:46)
[2024-09-17] MEDS ORDERED: ALBUTEROL2.5 MG/3 M INH (06:47)
[2024-09-17] MEDS ORDERED: ELIQUIS5 MG PO (06:47)
[2024-09-17] MEDS ORDERED: PREDNISONE20 MG PO (06:48)
[2024-09-17] MEDS ORDERED: HYDROCODON-ACE1 EA10 PO (06:48)
[2024-09-17] MEDS ORDERED: AZITHROMYCIN500 MG PO (06:50)
--- NOTE | 2024-09-17 07:00 | NUR ---
Report called to LIGIA Dee at [facility]. All questions answered.
--- NOTE | 2024-09-17 07:00 | NUR ---
Orders and dc summary completed by Dr. Sanchez. All faxed to Lennie at [facility] rehab. Texted and let her know pt left at 0710.
--- NOTE | 2024-09-17 07:15 | NUR ---
Pt up to W/C w/ 2 assist and quinn lopez. O2 dc'd as pt passed RA trial. All belongings sent w/ son, Kevin. LFA IV left in place.
--- NOTE | 2024-09-18 17:09 | NUR ---
[facility] CALLED THIS RN TO ASK CLARIFICATION ON PRESCRITION. ABLE TO GET CLARIFICATION FROM DOCTORS NOTED FOR WHAT THEY NEEDED.
--- NOTE | 2024-09-18 18:01 | NUR ---
[facility] CALLED PATIENT WAS DISCHARGED WITH CEFTRIAXONE 1G IV DOSING ON DISCHARGE. CALLED TO VERIFY IF PATIENT WAS TO HAVE ANOTHER ANTIBIOTIC IT WAS IV ONLY WHICH WAS UNABLE TO BE FILLED OUTPT. VERIFIED WITH DR. ARGUETA WHO REVIEWED THE PATIENT CHART, DETERMINE THAT PT SHOULD HAVE GOOD COVERAGE WITH THE AZITHROMYCIN HE WAS DISCHARGED WITH AND NO FURTHER ABX WERE TO BE ORDERED. [facility] NOTIFIED AND VM LEFT THEY WERE CLOSED.
== END 2024-09-17 07:15 ==
LOC: ED 21:28 → MS 21:29
PROVIDERS: Internal Medicine; ADMIT Student in an Organized Health Care Education/Training Program; ATTEND Student in an Organized Health Care Education/Training Program
DX: S32.401A Unspecified fracture of right acetabulum, initial encounter for closed fracture (principal); I10 Essential (primary) hypertension; E78.5 Hyperlipidemia, unspecified; N40.0 Benign prostatic hyperplasia without lower urinary tract symptoms; F32.9 Major depressive disorder, single episode, unspecified; Z66 Do not resuscitate; Z79.01 Long term (current) use of anticoagulants; Z79.899 Other long term (current) drug therapy; Z87.891 Personal history of nicotine dependence; W18.30XA Fall on same level, unspecified, initial encounter; Y92.009 Unspecified place in unspecified non-institutional (private) residence as the place of occurrence of the external cause
CPT/HCPCS: 36415; 70450; 71045; 72125; 72192; 73502; 80048; 80053; 80307; 81003; 83735; 84100; 84484; 85025; 85610; 85730; 86850; 86900; 86901; 93005; 93010; 94640; 94667; 94668; 94762; 96365; 96366; 96375; 97162; 97166; 97530; 97535; 99285-25; A9270; G0378; G0480; J0696; J1171; J3411; J7030; J7512

== ENCOUNTER 2024-11-14 09:49 | Emergency (ER) | payer MEDICARE, OTHER ==
[~2024-11-14] VITALS: Ht 167.6 cm; Wt 64.0 kg
[~2024-11-14 09:49] MED LIST changes: +ALBUTEROL2.5 MG/3 M INH; +AZITHROMYCIN500 MG PO; +CEFTRIAXONE1 G1 IV; +ELIQUIS5 MG PO; +HYDROCODON-ACE1 EA10 PO; +IPRAT-ALBUT 0.5-3 ML INH; -LOSARTAN POTASS25 MG PO; +PREDNISONE20 MG PO
[2024-11-14] MEDS ORDERED: JANTOVEN5 MG PO (10:12)
[2024-11-14] MEDS ORDERED: DEXAMETHASONE SOD PHOS 10 MG/ML VIAL IV ONE (10:30)
[2024-11-14] MEDS ORDERED: ALBUTEROL/IPRATROPIUM 3 ML NEB INH ONE (10:30)
[2024-11-14 10:35] LABS: BASOPHILS 1.2 % (0-2); EOSINOPHILS 5.2 % (0-6); HEMATOCRIT 44.1 % (35.0-50.0); HEMOGLOBIN 15.1 g/dL (12.0-18.0); LYMPHOCYTES 11.3 % (24-44); MCH 34.3 (27-36); MCHC 34.3 g/dl (30-36); MCV 100.1 fl (81-99); MONOCYTES 9.1 % (0-12); NEUTROPHILS 73.2 % (39-80); PLATELET COUNT 184 K/uL (140-440); RBC 4.41 M/ul (4.3-5.7); RDW 13.2 (10.5-15.0)
[2024-11-14 10:51] LABS: CORONAVIRUS COVID-19 AG NEGATIVE (NEGATIVE); INFLUENZA A AG NEGATIVE (NEGATIVE); INFLUENZA B AG NEGATIVE (NEGATIVE)
[2024-11-14 10:57] LABS: ALBUMIN 2.9 g/dL (3.4-5.0); ALBUMIN/GLOBULIN RATIO 0.78 (1.1-2.4); ANION GAP 10.2 (7-21); BILIRUBIN, TOTAL 0.6 mg/dL (0.2-1.0); BUN/CREATININE RATIO 18.18 (6.0-28.6); CALCIUM 9.1 mg/dL (8.5-10.1); CREATININE, SERUM 1.1 mg/dL (0.70-1.30); MAGNESIUM 2.1 mg/dL (1.8-2.4); POTASSIUM 4.2 mmol/L (3.5-5.1); PROTEIN, TOTAL 6.6 g/dL (6.4-8.2)
[2024-11-14 11:12] LABS: INR 1.13 (0.80-1.30); PROTIME 14.4 Sec (11.2-14.2)
[2024-11-14] MEDS ORDERED: ALBUTEROL SULFATE 0.083% 3 ML VIAL INH ONE (11:15)
[2024-11-14] MEDS ORDERED: KETOROLAC TROMETHAMINE 15 MG/ML VIAL IV ONE (14:15)
[2024-11-14] MEDS ORDERED: PREDNISONE20 MG PO (14:17)
[2024-11-14] MEDS ORDERED: ACETAMINOPHEN-1 EAC1 PO (14:17)
[2024-11-14] MEDS ORDERED: VENTOLIN HFA18 GM INH (14:17)
[2024-11-14 14:57] VITALS: BP 136/83
[2024-11-14] MEDS ORDERED: INHALER, ASSIST DEVICES 1 EACH SPACER MISC ONE (15:00)
--- NOTE | 2024-11-17 19:35 | EKG ---
[facility] [address] [place] [address] Signed Sinus rhythm with 1st degree AV block with occasional premature ventricular complexes Low voltage QRS Borderline ECG When compared with ECG of 14-SEP-2024 23:09, SC interval has increased Confirmed by Wilder Perez MD ([id number]) on 11/17/2024 7:35:06 PM Electronically Signed By: WILDER PEREZ MD 11/17/241934 PATIENT NAME: WAGNER OLVERA RTAN Electrocardiogram DATE OF : 45 PHYSICIAN: WILDER PEREZ MD REPORT #: [id number] REPORT IS CONFIDENTIAL AND NOT TO BE RELEASED WITHOUT AUTHORIZATION
== END 2024-11-14 14:57 | disposition home or self-care (01) ==
LOC: ED 09:49
PROVIDERS: Emergency Medicine
DX: J40 Bronchitis, not specified as acute or chronic (principal); I10 Essential (primary) hypertension; Z86.73 Personal history of transient ischemic attack (TIA), and cerebral infarction without residual deficits; Z87.891 Personal history of nicotine dependence; Z79.01 Long term (current) use of anticoagulants; Z79.899 Other long term (current) drug therapy
CPT/HCPCS: 36415; 71045; 71260; 80053; 83735; 83880; 84484; 85025; 85610; 93005; 93010; 94640; 99285-25; J1100; J1885; Q9967

== ENCOUNTER 2024-12-02 10:11 | Emergency (ER) | payer MEDICARE, OTHER ==
[~2024-12-02] VITALS: Ht 167.6 cm; Wt 67.0 kg
[~2024-12-02 10:11] MED LIST changes: +ACETAMINOPHEN-1 EAC1 PO; +JANTOVEN5 MG PO; +VENTOLIN HFA18 GM INH
[2024-12-02 14:30] VITALS: BP 151/93
== END 2024-12-02 14:30 | disposition home or self-care (01) ==
LOC: ED 10:11
DX: R05.9 Cough, unspecified (principal); I10 Essential (primary) hypertension; Z86.73 Personal history of transient ischemic attack (TIA), and cerebral infarction without residual deficits; Z87.891 Personal history of nicotine dependence; Z79.01 Long term (current) use of anticoagulants; Z79.899 Other long term (current) drug therapy
CPT/HCPCS: 71046; 99283-25

== ENCOUNTER 2025-06-14 13:08 | Emergency (ER) | payer MEDICARE, OTHER ==
[~2025-06-14] VITALS: Ht 167.6 cm; Wt 62.0 kg
--- OUTSIDE RECORDS SUMMARY | ~2025-06-14 | XMS | Continuity of Care Document ---
Demographics + + + | Address | [address] | | | [place] [address] | + + + | Preferred Language | Unknown | + + + | Marital Status | | + + + | Judaism Affiliation | Unknown | + + + | Race | White | + + + | Ethnic Group | Not or | + + + Author + + + | Author | [facility] | + + + | Organization | [facility] | + + + | Address | [address] | | | [place] [address] | + + + | Phone | | + + + Care Team Providers + + + + | Care Signal Engineer Name | Role | Phone | + + + + Unavailable | Unavailable | + + + + Unavailable | Unavailable | + + + + Allergies No information. Encounters No information. Functional Status No information. Immunizations No information. Medications + + + + | date | description | facility | + + + + | (no date) | CYANOCOBALAMIN (VITAMIN | [facility] | | | B-12) | [facility] | + + + + | (no date) | AMLODIPINE BESYLATE | [facility] | | | | [facility] | + + + + | (no date) | OMEPRAZOLE | [facility] | | | | [facility] | + + + + | (no date) | SIMVASTATIN | [facility] | | | | [facility] | + + + + | (no date) | ASPIRIN | [facility] | | | | [facility] | + + + + | (no date) | FOLIC ACID [place] [facility] [place] | | | [facility] | + + + + | (no date) | Cholecalciferol (Vitamin | [facility] | | | D3) | [facility] | + + + + | (no date) | CEPHALEXIN | [facility] [place] | | | [facility] | + + + + | (no date) | LOTEPREDNOL ETABONATE | [facility] | | | | [facility] | + + + + | (no date) | CHOLECALCIFEROL (VITAMIN | [facility] | | | D3) | [facility] | + + + + | (no date) | FINASTERIDE | [facility] | | | | [facility] | + + + + | (no date) | GABAPENTIN | [facility] | | | | [facility] | + + + + | (no date) | SERTRALINE HCL | [facility] | | | | [facility] | + + + + | (no date) | AINSLEY YADAV. | [facility] | | | 0.05% | [facility] | + + + + | (no date) | AMOXICILLIN/POTASSIUM CLAV | [facility] | | | | [facility] | + + + + | (no date) | ATORVASTATIN CALCIUM | [facility] | | | | [facility] | + + + + | (no date) | POTASSIUM CHLORIDE | [facility] | | | | [facility] | + + + + | (no date) | NAPROXEN SODIUM | [facility] | | | | [facility] | + + + + | (no date) | WARFARIN SODIUM | [facility] | | | | [facility] | + + + + | (no date) | WARFARIN SODIUM | [facility] | | | | [facility] | + + + + | (no date) | WARFARIN SODIUM | [facility] | | | | [facility] | + + + + | (no date) | TRAZODONE HCL | [facility] | | | | [facility] | + + + + | (no date) | HYDROCODONE | [facility] | | | BIT/ACETAMINOPHEN | [facility] | + + + + | (no date) | HYDROCODONE | [facility] [place] | | | BIT/ACETAMINOPHEN | [facility] | + + + + | (no date) | PRAMIPEXOLE DI-HCL | [facility] | | | | [facility] | + + + + | (no date) | TAMSULOSIN HCL | [facility] | | | | [facility] | + + + + | (no date) | LOSARTAN POTASSIUM | [facility] | | | | [facility] | + + + + | (no date) | LOSARTAN POTASSIUM | [facility] | | | | [facility] | + + + + | (no date) | LOSARTAN POTASSIUM | [facility] [place] [facility] | | | | [facility] | + + + + Problems No information. Procedures No information. Results/Labs +--------+--------+ +---------+--------+---------+ | test | date | facility | value | unit | notes | +--------+--------+ +---------+--------+---------+ + + | Result panel 1 | + + + + + +--------+ + + | Prothrombin | 2025-04-20 | | 13.6 | (missing) | (missing) | | time | :28:07 | [facility] | [facility] | | | | + + + +--------+ + + + + | Result panel 2 | + + + + + +--------+ + + | INR PPP | 2025-04-20 | | 1.12 | (missing) | (missing) | | | 06:28:07 | [facility] | | | [facility] | | | | + + + +--------+ + + Social History +--------+ + + | date | description | facility | +--------+ + + Vital Signs + + + +---------+ | date | measurement | value | units | + + + +---------+ | 2025-03-29 00:00 | BP_diastolic | 81 | mmHg | + + + +---------+ | 2025-03-29 00:00 | BP_systolic | 138 | mmHg | + + + +---------+ | 2025-03-29 00:00 | heart_rate | 77 | /min | + + + +---------+ | 2025-04-14 00:00 | BMI | 23.5 | kg/m2 | + + + +---------+ | 2025-04-14 00:00 | height_metric | 167.64 | cm | + + + +---------+ | 2025-04-14 00:00 | height_standard | 66 | in | + + + +---------+ | 2025-04-14 00:00 | weight_metric | 66 | kg | + + + +---------+ | 2025-04-14 00:00 | weight_standard | 145.51 | lb | + + + +---------+ | 2025-04-20 00:00 | BP_diastolic | 78 | mmHg | + + + +---------+ | 2025-04-20 00:00 | BP_systolic | 131 | mmHg | + + + +---------+ | 2025-04-20 00:00 | heart_rate | 58 | /min | + + + +---------+ | 2025-04-20 00:00 | o2_saturation | 95 | % | + + + +---------+ | 2025-04-20 00:00 | respiration_rate | 17 | /min | + + + +---------+ | 2025-04-20 00:00 | temperature_metric | 35.94 | C | | | | | | + + + +---------+ | 2025-04-20 00:00 | | 96.7 | F | | | temperature_standar | | | | | d | | | + + + +---------+"
[~2025-06-14 13:08] MED LIST changes: +CIPROFLOXACIN500 MG PO; +SERTRALINE HCL50 MG PO
[2025-06-14] MEDS ORDERED: SODIUM CHLORIDE 0.9% 500 ML IV ONE (14:30)
[2025-06-14 14:44] LABS: BASOPHILS 1.0 % (0.2-1.2); EOSINOPHILS 1.2 % (0.8-7.0); LYMPHOCYTES 10.3 % (21.8-53.1); MCH 32.1 PG (25.7-32.2); MCHC 33.4 g/dL (32.3-36.5); MCV 96.0 fL (79.0-92.2); MONOCYTES 11.5 % (5.3-12.2); NEUTROPHILS 75.9 % (34.0-67.9); RBC 5.30 M/uL (4.63-6.08)
[2025-06-14 15:00] LABS: ALT (SGPT) 17.0 U/L (14-59); AST (SGOT) 31.0 U/L (15-37); GLOMERULAR FILTRATION RATE,EST 72.0 mL/min (>60); INR 2.91 (0.80-1.30); PROTEIN, TOTAL 6.9 g/dL (6.4-8.2); PROTIME 28.8 Sec (11.2-14.2); UREA NITROGEN 12.0 mg/dL (7-18)
[2025-06-14] MEDS ORDERED: IMODIUM A-D2 M2 PO (16:43)
[2025-06-14] MEDS ORDERED: SODIUM CHLORIDE 0.9% 1,000 ML IV PRN (17:00)
[2025-06-14 17:29] VITALS: BP 160/95
== END 2025-06-14 17:29 | disposition home or self-care (01) ==
LOC: ED 13:08
PROVIDERS: Emergency Medicine
DX: R19.7 Diarrhea, unspecified (principal); K57.30 Diverticulosis of large intestine without perforation or abscess without bleeding; Z86.73 Personal history of transient ischemic attack (TIA), and cerebral infarction without residual deficits; Z87.891 Personal history of nicotine dependence; Z79.01 Long term (current) use of anticoagulants; Z79.899 Other long term (current) drug therapy
CPT/HCPCS: 36415; 74177; 80053; 83735; 85025; 85610; 87045; 87046; 96361; 96374; 99284-25; J2405; J7030; J7040; Q9967